=== PATIENT | female | born 1965 | race Caucasian/White ===

== ENCOUNTER 2017-11-19 14:00 | Emergency (ER) | payer MEDICAID, SELFPAY | END 2017-11-19 16:01 | disposition home or self-care (01) | PROVIDERS: Emergency Provider Nurse Practitioner Family; Family Provider Nurse Practitioner Family; Visit Provider Nurse Practitioner Family | DX: J18.0 Bronchopneumonia, unspecified organism (principal); F17.210 Nicotine dependence, cigarettes, uncomplicated; Z85.41 Personal history of malignant neoplasm of cervix uteri; J44.9 Chronic obstructive pulmonary disease, unspecified; I10 Essential (primary) hypertension; K21.9 Gastro-esophageal reflux disease without esophagitis; Z79.890 Hormone replacement therapy; Z79.52 Long term (current) use of systemic steroids; Z79.899 Other long term (current) drug therapy; Z88.5 Allergy status to narcotic agent; Z88.8 Allergy status to other drugs, medicaments and biological substances | CPT/HCPCS: 71020; 99201 ==

== ENCOUNTER 2018-01-28 13:56 | Emergency (ER) | payer MEDICAID, SELFPAY ==
[2018-01-28 14:21] VITALS: BP 159/89; PULSE 97; RESP 20; TEMP 37.1; O2SAT 99; BMI 16.5
--- NOTE | 2018-01-28 14:45 | HMH.EDUTC ---
[facility] Disposition Clinical Impression: Skin abscess Qualifiers: Site of cutaneous abscess: unspecified site Qualified Code(s): L02.91 - Cutaneous abscess, unspecified Disposition: Home, Self-Care Condition on Discharge: Good Instructions: Boil Additional Instructions: Take medication as prescribed Follow up with Dr Bustamante tomorrow as scheduled Return if needed Over the counter Motrin or Tylenol as needed for fever or pain Prescriptions: cephALEXin [Keflex 500mg Cap] 500 mg PO Q6H #40 cap Sulfamethoxazole/Trimethoprim [Bactrim DS tablet] 1 each PO BID #20 tab Referrals: Evaristo Nye MD [Primary Care Provider] - David Bustamante MD [Staff Physician] - 01/29/18 10:30 am Time of Disposition: 15:25 Medical Decision Making Vital Signs: 01/28/18 14:21 Temperature 98.7 F Temperature Source Temporal Artery Scan Pulse Rate [Right Radial] 97 H Respiratory Rate 20 Blood Pressure [Right Arm] 159/89 Blood Pressure Mean [Right Arm] 112 Blood Pressure Source [Right Arm] Automatic Cuff Blood Pressure Position [Right Arm] Supine 02 Sat by Pulse Oximetry 99 Oxygen Delivery Method Room Air - Physician Consults Time: 15:00 Reason -: Pt condition, Other (Called Dr Sandra office patient has appointment tomorrow and they added I&D and changed time of appointment to 1030 ) - Berry Inquiry Pt receiving controlled substance: No Berry was queried for this patient: No [facility] HPI - General Stated complaint: boil on left arm Mode of Arrival: Family Vehicle Source of Information: Patient Limitations: No Limitations Description of Symptoms (Recalled from Triage Doc. by RN): PT C/O SPOT ON LEFT ARM THAT IS SWOLLEN, RED, AND PAINFUL. HEENT Symptoms (Recalled from RN notes): No Resp Symptoms (Recalled from RN notes): No Skin Symptoms (Recalled from RN notes): Yes (SPOT ON LEFT ARM RED/SWOLLEN/PAINFUL) MS Symptoms (Recalled from RN notes): No Functional Status (Recalled from RN notes): NA - History of Present Illness Provider Complaint: Patient state that she has an IV drug use problem State that she was injecting her medication when she accidently missed her vein and now she has red swollen warm to touch area on left ac area State that she noticed last night that it opened up and started to drain then stopped draining and began to swell again - Related Data Home Medications Medication Instructions Recorded Confirmed ARIPiprazole [Aripiprazole] 20 mg PO DAILY 01/28/18 01/28/18 Albuterol Sulfate [Albuterol HFA 1 puff INHALATION DAILY PRN 01/28/18 01/28/18 Inhaler] Estradiol [Estradiol] 0.5 mg PO DAILY 01/28/18 01/28/18 Ibuprofen [Ibuprofen 800mg Tab] 800 mg PO DAILY 01/28/18 01/28/18 Megestrol Acetate [Megestrol 40 mg PO DAILY 01/28/18 01/28/18 Acetate 40mg Tablet] Meloxicam [Meloxicam] 7.5 mg pe PO DAILY 01/28/18 01/28/18 Omeprazole [Omeprazole 40mg 40 mg PO DAILY 01/28/18 01/28/18 Capsule] Ondansetron HCl [Ondansetron 4mg 4 mg PO DAILY PRN 01/28/18 01/28/18 Tab] Pravastatin Sodium [Pravachol] 20 mg PO DAILY 01/28/18 01/28/18 Quetiapine Fumarate [Seroquel 25mg 50 mg PO HS 01/28/18 01/28/18 tablet] Tizanidine HCl [Zanaflex 4mg 4 mg PO DAILY 01/28/18 01/28/18 tablet] Trazodone HCl 100 mg PO DAILY 01/28/18 01/28/18 Previous Rx's Medication Instructions Recorded Sulfamethoxazole/Trimethoprim 1 each PO BID #20 tab 01/28/18 [Bactrim DS tablet] cephALEXin [Keflex 500mg Cap] 500 mg PO Q6H #40 cap 01/28/18 Allergies Allergy/AdvReac Type Severity Reaction Status Date / Time aspirin [ASPIRIN] Allergy Unknown Verified 01/28/18 14:26 codeine [CODEINE] Allergy Unknown Verified 01/28/18 14:26 propoxyphene [PROPOXYPHENE] Allergy Unknown Verified 01/28/18 14:26 tramadol [TRAMADOL] Allergy Unknown Verified 01/28/18 14:26 - Worker's Comp Is this a Worker's Comp case?: No H History I have reviewed the patient's past medical history: Yes 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: Denies:: Cancer, Diabet
--- NOTE | 2018-01-28 14:52 | ED_ITS ---
[facility] [place] Disposition Clinical Impression: Skin abscess Qualifiers: Site of cutaneous abscess: unspecified site Qualified Code(s): L02.91 - Cutaneous abscess, unspecified Disposition: Home, Self-Care Condition on Discharge: Good Instructions: Boil Additional Instructions: Take medication as prescribed Follow up with Dr Bustamante tomorrow as scheduled Return if needed Over the counter Motrin or Tylenol as needed for fever or pain Prescriptions: cephALEXin [Keflex 500mg Cap] 500 mg PO Q6H #40 cap Sulfamethoxazole/Trimethoprim [Bactrim DS tablet] 1 each PO BID #20 tab Referrals: Evaristo Nye MD [Primary Care Provider] - David Bustamante MD [Staff Physician] - 01/29/18 10:30 am Time of Disposition: 15:25 Medical Decision Making Vital Signs: 01/28/18 14:21 Temperature 98.7 F Temperature Source Temporal Artery Scan Pulse Rate [Right Radial] 97 H Respiratory Rate 20 Blood Pressure [Right Arm] 159/89 Blood Pressure Mean [Right Arm] 112 Blood Pressure Source [Right Arm] Automatic Cuff Blood Pressure Position [Right Arm] Supine 02 Sat by Pulse Oximetry 99 Oxygen Delivery Method Room Air - Physician Consults Time: 15:00 Reason -: Pt condition, Other (Called Dr Sandra office patient has appointment tomorrow and they added I&D and changed time of appointment to 1030 ) - Berry Inquiry Pt receiving controlled substance: No Berry was queried for this patient: No [facility] [place] HPI - General Stated complaint: boil on left arm Mode of Arrival: Family Vehicle Source of Information: Patient Limitations: No Limitations Description of Symptoms (Recalled from Triage Doc. by RN): PT C/O SPOT ON LEFT ARM THAT IS SWOLLEN, RED, AND PAINFUL. HEENT Symptoms (Recalled from RN notes): No Resp Symptoms (Recalled from RN notes): No Skin Symptoms (Recalled from RN notes): Yes (SPOT ON LEFT ARM RED/SWOLLEN/ PAINFUL) MS Symptoms (Recalled from RN notes): No Functional Status (Recalled from RN notes): NA - History of Present Illness Provider Complaint: Patient state that she has an IV drug use problem State that she was injecting her medication when she accidently missed her vein and now she has red swollen warm to touch area on left ac area State that she noticed last night that it opened up and started to drain then stopped draining and began to swell again - Related Data Home Medications Medication Instructions Recorded Confirmed ARIPiprazole [Aripiprazole] 20 mg PO DAILY 01/28/18 01/28/18 Albuterol Sulfate [Albuterol HFA 1 puff INHALATION DAILY PRN 01/28/18 01/28/18 Inhaler] Estradiol [Estradiol] 0.5 mg PO DAILY 01/28/18 01/28/18 Ibuprofen [Ibuprofen 800mg Tab] 800 mg PO DAILY 01/28/18 01/28/18 Megestrol Acetate [Megestrol 40 mg PO DAILY 01/28/18 01/28/18 Acetate 40mg Tablet] Meloxicam [Meloxicam] 7.5 mg pe PO DAILY 01/28/18 01/28/18 Omeprazole [Omeprazole 40mg 40 mg PO DAILY 01/28/18 01/28/18 Capsule] Ondansetron HCl [Ondansetron 4mg 4 mg PO DAILY PRN 01/28/18 01/28/18 Tab] Pravastatin Sodium [Pravachol] 20 mg PO DAILY 01/28/18 01/28/18 Quetiapine Fumarate [Seroquel 25mg 50 mg PO HS 01/28/18 01/28/18 tablet] Tizanidine HCl [Zanaflex 4mg 4 mg PO DAILY 01/28/18 01/28/18 tablet] Trazodone HCl 100 mg PO DAILY 01/28/18 01/28/18 Previous Rx's Medication Instructions Recorde
[2018-01-28 15:28] VITALS: BP 105/80; PULSE 76; RESP 20; TEMP 37.1; O2SAT 99
== END 2018-01-28 15:29 | disposition home or self-care (01) ==
PROVIDERS: Emergency Provider Nurse Practitioner; Family Provider Nurse Practitioner Family; PCP Family Medicine
DX: L02.414 Cutaneous abscess of left upper limb (principal); F19.10 Other psychoactive substance abuse, uncomplicated; Z79.890 Hormone replacement therapy; Z79.899 Other long term (current) drug therapy; F17.210 Nicotine dependence, cigarettes, uncomplicated
CPT/HCPCS: 99202

== ENCOUNTER → 2018-01-29 11:12 | Outpatient (CLI) | payer MEDICAID, SELFPAY ==
[2018-01-29 11:45] LABS: Basophils % 0.3 % (0.1-2.0); Eosinophils # 0.3 K/mm3 (0.0-0.4); Eosinophils % 2.9 % (0.1-12.0); Hematocrit 36.7 % (37.0-47.0); Hemoglobin 11.6 g/dL (12.2-16.2); Lymphocytes # 2.4 K/mm3 (0.7-4.5); Lymphocytes % 23.6 K/mm3 (10-50); Mean Corpuscular HGB Conc 31.5 g/dL (31.8-35.4); Mean Corpuscular Hemoglobin 29.3 pg (27.0-31.2); Monocytes # 0.6 K/mm3 (0.1-1.0); Monocytes % 5.7 % (1.7-9.3); Neutrophils # 6.8 K/mm3 (1.8-7.8); Neutrophils % 67.4 % (37.0-80.0); Platelet Count 423 K/mm3 (142-424); Red Blood Count 3.95 M/mm3 (4.20-5.40); Red Cell Distribution Width 14.1 % (11.5-17.5); White Blood Count 10.1 K/mm3 (4.8-10.8)
[2018-01-30 10:29] LABS: Anion Gap 15.8 mEq/L (5-15); Blood Urea Nitrogen 8 mg/dL (7-18); Carbon Dioxide 24 mmol/L (21.0-32.0); Chloride 100 mmol/L (98-107); Creatinine,Serum 1.17 mg/dL (0.55-1.02); Estimated Glomerular Filt Rate 49 ml/min (>60); GFR (African American) 59 ML/MIN (>60); Glucose 82 mg/dL (74-106); Sodium 136 mmol/L (136-145)
[2018-01-30 10:40] LABS: Potassium 3.8 mmoL/L (3.5-5.1)
== END ==
PROVIDERS: PCP Family Medicine; Visit Provider Surgery
DX: L02.414 Cutaneous abscess of left upper limb (principal); Z01.818 Encounter for other preprocedural examination
CPT/HCPCS: 36415; 80048; 85025; 93005

== ENCOUNTER 2018-01-30 09:33 | Day surgery (SDC) | payer MEDICAID, SELFPAY ==
[2018-01-30] VITALS (12 sets, daily range): BP systolic 114–163; BP diastolic 72–103; PULSE 76–89; RESP 16–18; TEMP 37.1–37.7; O2SAT 96–100; BMI 16.5
--- NOTE | 2018-01-30 10:23 | HMH.ANESCL ---
[facility] Anesthesia Checklist - Patient Identification Patient Identification: Arm Band - Structural Data Admitted From: Home Planned Operative Procedure/s: I&D left arm abcess Consent for Planned Operative Procedure(s) Verified: Yes Verified Documents: Surgical Consent, History and Physical - NPO Status Verified Time NPO: 00:00 - Additional verifications Anesthesia Reactions: No - Airway Assessment C-Spine Mobility Assessed: Yes (mp2) TMJ Mobility Assessed: Yes Dentition: Edentulous - Neurological Assessment Level of Consciousness: Awake, Alert - Anesthesia Plan Anesthesia Risk discussed: Yes Anesthesia Plan: Verified ASA Class: III Anesthesia Type: General [facility] Anesthesia HX 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: Reports:: Anxiety, Cancer, Chronic Obstructive Pulmonary Disease (COPD), Depression, Gastroesophageal Reflux Disease(GERD), Hyperlipidemia Denies:: Diabetes Mellitus Type 1, Diabetes Mellitus Type 2, MRSA Other 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: Reports: Other (IV drug abuse) Laterality Cases: Right: Arthroscopy Knee, Bilateral: Breast Biopsy Other Surgeries: Yes: , Hernia Repair, Hysterectomy-Total, Other (gallbladder) Amputation: No Fractures: No *Family Hx:: Cancer, Hypertension, Diabetes
--- NOTE | 2018-01-30 11:36 | P.OP_ITS ---
Date of procedure: 01/30/18 Pre-op Diagnosis:: Left antecubital fossa abscess Post-op Diagnosis:: Same Procedure performed:: Incision and drainage of left antecubital fossa abscess Surgeon:: David Bustamante MD Systems Technologist(s):: Nuria Titus MAT CUTTER:: Olivier Kim Anesthesia: LMA Estimated blood loss (mL): 5 Operative findings:: Localized abscess in fairly shallow subcutaneous tissue of left antecubital fossa Operative note:: After informed consent was obtained, the patient was taken to the operating room and maintained in the supine position. General anesthesia with laryngeal mask airway was achieved. Her left arm was prepped and draped in a sterile fashion. A small incision was made overlying the central portion of the abscess and purulent fluid was obtained for Gram stain and culture. The pocket was carefully evacuated and irrigated. A small area of marginal necrotic tissue was excised sharply and the wound was then packed open with moistened Kerlix. The entire area to include the gauze was infiltrated with 1% lidocaine. Dressings were applied and the patient was transferred to recovery in stable condition. Condition: stable Disposition: PACU Specimens:: Fluid for Gram stain and culture Complications:: No immediate
--- NOTE | 2018-01-30 11:36 | HMH.ANESI ---
[facility] Anesthesia Record Part I Intake, IV Amount: 500 Estimated blood loss (mL): 5 Urine output (mL): 0 Blood Pressure: 114/73 SaO2: 96 Pulse Rate: 89 Respiratory Rate: 16 Temperature: 99 F Patient is:: Drowsy, Stable Stable to PACU at:: 11:35
--- NOTE | 2018-01-30 11:39 | P.PN_ITS ---
[facility] Anesthesia Record Part I Intake, IV Amount: 89 Estimated blood loss (mL): 5 Urine output (mL): 0 Blood Pressure: 114/73 SaO2: 96 Pulse Rate: 89 Respiratory Rate: 16 Temperature: 99 F Patient is:: Drowsy, Stable Stable to PACU at:: 11:35
--- NOTE | 2018-01-30 11:39 | P.PN_ITS ---
[facility] Anesthesia Record Part II Discharge Time: 12:05 Destination: [facility] PACU nurse assessment reviewed?: Yes Patient Condition:: Good Anesthesia Complications:: None
--- NOTE | 2018-01-30 11:39 | HMH.ANESII ---
[place] Anesthesia Record Part II Discharge Time: 12:05 Destination: [facility] PACU nurse assessment reviewed?: Yes Patient Condition:: Good Anesthesia Complications:: None
--- NOTE | 2018-01-30 13:09 | P.PN_ITS ---
[facility] Anesthesia Record Part I Intake, IV Amount: 500 Estimated blood loss (mL): 5 Urine output (mL): 0 Blood Pressure: 114/73 SaO2: 96 Pulse Rate: 89 Respiratory Rate: 16 Temperature: 99 F Patient is:: Drowsy, Stable Stable to PACU at:: 11:35
--- NOTE | 2018-01-30 14:15 | PC.NURSE ---
1150-pt rates pain to left arm 9/10 and describes as throbbing, medicated per JAN w/Toradol 30mg IV and Morphine 2mg IV. VSS. 1155-Pt rates throbbing pain to left arm 7/10. Medicated per MAR w/Morphine 2mg IV. VSS.
--- NOTE | 2018-01-30 14:19 | PC.NURSE ---
1203-detailed report called to LeifRN 1205-pt transported to post op via stretcher w/rails up and left in care of YULISSA Yadav w/bed locked in lowest position. VSS. Pt stable.
== END 2018-01-30 12:51 | disposition home or self-care (01) ==
PROVIDERS: Family Provider Nurse Practitioner Family; PCP Family Medicine; Visit Provider Surgery
PROC: (CPT 10061; principal; 2018-01-30 11:15)
DX: L02.414 Cutaneous abscess of left upper limb (principal)
CPT/HCPCS: 10061; 87070; 87077; 87186; 87205; 96374; J2405

== ENCOUNTER → 2018-11-18 14:25 | Outpatient (CLI) | payer MEDICAID, SELFPAY ==
[2018-11-18 14:32] LABS: Microscopic, Urine URINE MICROSCOPIC (MICROSCOPIC)
[2018-11-18 14:54] LABS: Basophils # 0.1 K/mm3 (0-0.2); Basophils % 0.7 % (0.1-2.0); Eosinophils # 0.2 K/mm3 (0.0-0.4); Eosinophils % 1.9 % (0.1-12.0); Hematocrit 37.3 % (37.0-47.0); Lymphocytes # 3.2 K/mm3 (0.7-4.5); Lymphocytes % 34.5 % (10-50); Mean Corpuscular HGB Conc 32.2 g/dL (31.8-35.4); Mean Corpuscular Hemoglobin 30.9 pg (27.0-31.2); Mean Corpuscular Volume 96.1 fl (81-99); Mean Platelet Volume 7.3 fl (7.4-10.4); Monocytes # 0.4 K/mm3 (0.1-1.0); Monocytes % 4.6 % (1.7-9.3); Neutrophils # 5.5 K/mm3 (1.8-7.8); Neutrophils % 58.4 % (37.0-80.0); Platelet Count 322 K/mm3 (142-424); Red Blood Count 3.88 M/mm3 (4.20-5.40); Red Cell Distribution Width 14.2 % (11.5-17.5); White Blood Count 9.4 K/mm3 (4.8-10.8)
[2018-11-18 16:11] LABS: Amphetamine/Metha Screen,Urine Negative ng/mL (<1000); Barbiturates Screen,Urine Negative ng/mL (<200); Benzodiazepines Screen,Urine Positive ng/mL (<200); Cannabinoid Screen,Urine Positive ng/mL (<50); Cocaine Screen,Urine Negative ng/mL (<300); Methadone Screen,Urine Negative ng/mL (<300); Opiate Screen,Urine Negative ng/mL (<300); Phencyclidine Screen,Urine Negative ng/mL (<25)
[2018-11-18 16:19] LABS: Appearance,Urine CLEAR (Clear); Bilirubin,Urine Negative (Negative); Blood, Urine Negative (Negative); Color,Urine YELLOW (Yellow); Glucose,Urine (UA) Negative (Negative); Ketones,Urine Negative (Negative); Leukocyte Esterase,Urine TRACE (Negative); Nitrate,Urine Negative (Negative); Protein,Urine Negative (Negative); Specific Gravity, Urine <= 1.005 (1.005-1.030); Urobilinogen,Urine 0.2 EU/dl (0.2)
[2018-11-18 16:40] LABS: RBC,Urine Occasional #/hpf (0-3)
[2018-11-18 16:41] LABS: Bacteria,Urine Trace /lpf
[2018-11-18 20:49] LABS: Alanine Aminotransferase 16 U/L (12-78); Albumin Level 3.7 gm/dL (3.4-5.0); Alkaline Phosphatase 115 U/L (46-116); Anion Gap 13.8 mEq/L (5-15); Aspartate Amino Transferase 11 U/L (15-37); Bilirubin,Total 0.3 mg/dL (0.2-1.0); Blood Urea Nitrogen 8 mg/dL (7-18); Calcium 8.8 mg/dL (8.5-10.1); Carbon Dioxide 29 mmol/L (21.0-32.0); Chloride 100 mmol/L (98-107); Chol/HDL Ratio 2.9 (1-3.5); Cholesterol 191 mg/dL (140-200); Creatinine,Serum 1.07 mg/dL (0.55-1.02); Estimated Glomerular Filt Rate 54 ml/min (>60); GFR (African American) 65 ML/MIN (>60); Globulin 3.7 gm/dl (1.3-3.2); Glucose 64 mg/dL (74-106); HCG,Quantitative 2 mIU/mL; HDL Cholesterol 67 mg/dL (29-89); LDL Cholesterol 86 mg/dL (0-130); Potassium 3.8 mmoL/L (3.5-5.1); Sodium 139 mmol/L (136-145); Total Protein,Serum 7.4 gm/dL (6.4-8.2); Triglycerides 189 mg/dL (30-200); VLDL Cholesterol 38 mg/dL (0-40)
[2018-11-18 21:30] LABS: Ethyl Alcohol 0 mg/dL (0-99)
[2018-11-20 09:16] LABS: HIV Screen 4th Generation wRfx Non Reactive (Non Reactive)
[2018-11-21 16:12] LABS: Hep B Surface Ab, Qual Reactive (.); Hepatitis C Antibody >11.0 s/co ratio (0.0-0.9); Rapid Plasma Reagin Ab Titer Non Reactive (NonRea<1:1)
== END ==
PROVIDERS: Visit Provider Obstetrics & Gynecology
DX: F11.20 Opioid dependence, uncomplicated (principal); Z79.899 Other long term (current) drug therapy
CPT/HCPCS: 36415; 80053; 80061; 80305; 81001; 84702; 85025; 86592; 86703; 86706; 87086; 87380; G0432

== ENCOUNTER → 2018-12-03 08:52 | Outpatient (CLI) | payer MEDICAID, SELFPAY ==
--- NOTE | 2018-12-03 08:59 | MM_ITS ---
MM Dig screening mamm BI w/CAD CAD Screening COMPARISON: Digital mammograms with CAD 10/29/2011 and 05/06/2014 INDICATION: There is no personal or family history of breast cancer. There has been previous cyst aspiration left breast. TECHNIQUE: Standard CC and MLO images were obtained. R2 CAD reviewed. FINDINGS: Moderate and diffuse fibroglandular densities are seen in the central portions of both breasts. There is a benign-appearing macrocalcification upper outer quadrant right breast and there are benign-appearing microcalcifications left breast. There are stable nodular density axillary tail left breast. There is no suspicious lesion and there are no suspicious microcalcifications. IMPRESSION: Stable exam with no suspicious lesion seen BI-RADS Category: 2 Benign Finding(s) RECOMMENDED FOLLOW-UP: 1YR - 1 YEAR FOLLOW-UP (A letter has been sent to the patient regarding results of the study.)
--- NOTE | 2018-12-03 08:59 | XR_ITS ---
XR shoulder LT min 2V HISTORY: ITS.REASON: Shoulder pain ORDERING PHYSICIAN: Maine Parkinson PATIENT AGE: 52 years Comparison: 12/09/2008 FINDINGS: No fracture or dislocation. No lytic or blastic change. There is normal mineralization. The joint spaces are well-preserved. No significant degenerative/arthritic changes. No erosive changes evident. IMPRESSION: Negative, no acute finding
--- NOTE | 2018-12-03 08:59 | XR_ITS ---
XR hand LT min 3V HISTORY: ITS.REASON: Lt hand pain ORDERING PHYSICIAN: Maine Parkinson PATIENT AGE: 52 years COMPARISON: None FINDINGS: No fracture or dislocation. No lytic or blastic change. There is normal mineralization.. The joint spaces are well-preserved. No significant degenerative/arthritic changes. No erosive changes evident.. IMPRESSION: Negative, no acute finding
--- NOTE | 2018-12-03 08:59 | XR_ITS ---
XR wrist LT min 3V HISTORY ITS.REASON: Left wrist pain ORDERING PHYSICIAN: Maine Parkinson PATIENT AGE: 52 years Comparison: None FINDINGS: No fracture or dislocation. No lytic or blastic change. There is normal mineralization.. The joint spaces are well-preserved. No significant degenerative/arthritic changes. No erosive changes evident.. IMPRESSION: Negative wrist
--- NOTE | 2018-12-03 09:00 | US_ITS ---
US abdomen complete HISTORY: Pain and vomiting when eating ITS.REASON: EPIGASTRIC PAIN, INCISIONAL HERNIA ORDERING PHYSICIAN: Maine Parkinson PATIENT AGE: 52 years COMPARISON: None FINDINGS: PANCREAS:Unremarkable. No obvious mass or abnormal fluid collection. No ductal dilatation LIVER:No focal liver lesions demonstrated. There is coarse echogenicity of the liver nonspecific.. No intrahepatic biliary ductal dilatation evident RIGHT KIDNEY:Unremarkable. Normal size and echogenicity. No hydronephrosis LEFT KIDNEY:Unremarkable. No hydronephrosis. Normal size and echogenicity. GALLBLADDER:Status post cholecystectomy. Common bile duct is normal at 6 mm.. AORTA:No evidence of aneurysmal dilatation. Plaque present in the aorta SPLEEN:Unremarkable. Normal size and echogenicity ASCITES:None demonstrated. IMPRESSION: 1. Coarse echogenicity of the liver nonspecific. 2. Status post cholecystectomy. 3. Plaque within the aorta
== END ==
PROVIDERS: PCP Nurse Practitioner Family; Visit Provider Nurse Practitioner Family
DX: M25.512 Pain in left shoulder (principal); M25.532 Pain in left wrist; M79.642 Pain in left hand; Z12.31 Encounter for screening mammogram for malignant neoplasm of breast; R10.13 Epigastric pain; K43.2 Incisional hernia without obstruction or gangrene
CPT/HCPCS: 73030; 73110; 73130; 76700; 77067

== ENCOUNTER → 2018-12-16 13:32 | Outpatient (CLI) | payer MEDICAID, SELFPAY ==
--- NOTE | 2018-12-16 13:35 | XR_ITS ---
EXAM: XR cervical spine 2V HISTORY: ITS.REASON: Neck pain ORDERING PHYSICIAN: Alisson Bautista MD PATIENT AGE: 52 years COMPARISON: None FINDINGS: Normal alignment. No fracture or dislocation. No lytic or blastic change. There is mild degenerative disc disease at C5-C6 with small endplate osteophytes. Small endplate osteophyte also noted at C7 inferiorly. No lytic or blastic change. Incidental note made of thyroid cartilage calcifications as normal variant. No cervical rib. IMPRESSION: Mild degenerative disc disease C5-C6
== END ==
PROVIDERS: PCP Internal Medicine Adolescent Medicine; Visit Provider Orthopaedic Surgery
DX: M54.2 Cervicalgia (principal)
CPT/HCPCS: 72040

== ENCOUNTER → 2019-01-23 12:14 | Outpatient (CLI) | payer MEDICAID, SELFPAY ==
[2019-01-23 12:43] LABS: Basophils # 0.1 K/mm3 (0-0.2); Basophils % 0.8 % (0.1-2.0); Eosinophils # 0.3 K/mm3 (0.0-0.4); Eosinophils % 4.3 % (0.1-12.0); Hematocrit 48.2 % (37.0-47.0); Hemoglobin 15.5 g/dL (12.2-16.2); Lymphocytes # 2.7 K/mm3 (0.7-4.5); Lymphocytes % 42.6 % (10-50); Mean Corpuscular HGB Conc 32.1 g/dL (31.8-35.4); Mean Corpuscular Hemoglobin 31.1 pg (27.0-31.2); Mean Corpuscular Volume 96.8 fl (81-99); Monocytes # 0.3 K/mm3 (0.1-1.0); Monocytes % 5.2 % (1.7-9.3); Neutrophils % 47.2 % (37.0-80.0); Platelet Count 290 K/mm3 (142-424); Red Blood Count 4.98 M/mm3 (4.20-5.40); White Blood Count 6.4 K/mm3 (4.8-10.8)
[2019-01-23 14:01] LABS: Anion Gap 14.7 mEq/L (5-15); Blood Urea Nitrogen 10 mg/dL (7-18); Calcium 9.4 mg/dL (8.5-10.1); Carbon Dioxide 25 mmol/L (21.0-32.0); Chloride 101 mmol/L (98-107); Creatinine,Serum 1.17 mg/dL (0.55-1.02); Estimated Glomerular Filt Rate 49 ml/min (>60); GFR (African American) 59 ML/MIN (>60); Glucose 98 mg/dL (74-106); Potassium 3.7 mmoL/L (3.5-5.1); Sodium 137 mmol/L (136-145)
== END ==
PROVIDERS: Visit Provider Surgery
DX: K43.2 Incisional hernia without obstruction or gangrene (principal); R63.4 Abnormal weight loss
CPT/HCPCS: 36415; 80048; 85025

== ENCOUNTER → 2019-01-26 09:14 | Outpatient (POV) | payer MEDICAID, SELFPAY | PROVIDERS: Visit Provider Specialist | DX: M54.2 Cervicalgia (principal); M79.602 Pain in left arm | CPT/HCPCS: 95886; 95908 ==

== ENCOUNTER → 2019-01-27 08:48 | Outpatient (CLI) | payer MEDICAID, SELFPAY ==
--- NOTE | 2019-01-27 09:23 | CT_ITS ---
CT chest w con HISTORY: Tobacco use, weight loss ITS.REASON: weight loss ORDERING PHYSICIAN: David Bustamante MD PATIENT AGE: 53 years COMPARISON: 12/27/2015 TECHNIQUE: Axial images obtained following the administration of 75 mL of Optiray 350. Sagittal, and coronal reformatted images are also generated and reviewed. All CT scans at the facility use one or more dose reduction, viz: automated exposure control, ma/kV adjustment per patient size (including targeted exams where dose is matched to indication, i.e. head), or iterative reconstruction technique. FINDINGS: No mediastinal or hilar mass. Normal heart size. Minimal aortic root calcifications. No evidence of pericardial effusion. Hyperinflation with attenuation of peripheral pulmonary vessels consistent with COPD. Chronic parenchymal opacity is present within the lingula. There is calcified granuloma in the left upper lobe. There are mild right apical fibrotic changes. There is a faint 3 mm noncalcified nodule in the right upper lobe laterally axial image #39 was probably present on the previous study the less apparent and may be due to the axial orientation of the slices. An additional 3 mm nodule is present in the right upper lobe anteriorly on axial image #41. No suspicious nodules are evident. No infiltrates or effusions.. No central obstructing lesion. Upper abdominal images show biliary dilatation which may be secondary to the prior cholecystectomy. No acute bony anomalies. IMPRESSION: 1. COPD with chronic changes. 2. There are two 3-mm nodular densities in the right upper lobe which are nonspecific. 12 month follow-up suggested.
--- NOTE | 2019-01-27 09:23 | CT_ITS ---
CT abdomen pelvis w con CLINICAL INDICATION: Weight loss, possible hernia ITS.REASON: weight loss ORDERING PHYSICIAN: David Bustamante MD PATIENT AGE: 53 years COMPARISON: 09/13/2016 TECHNIQUE: Axial images obtained with sagittal and coronal reformats. All CT scans at the facility use one or more dose reduction, viz: automated exposure control, ma/kV adjustment per patient size (including targeted exams where dose is matched to indication, i.e. head), or iterative reconstruction technique. PROCEDURE: Oral Contrast: Redicat IV Contrast: 75 mL of Optiray 350 performed in conjunction with the chest CT. FINDINGS: There are postcholecystectomy changes with biliary ectasia. The adrenal glands, pancreas, spleen, and kidneys have an unremarkable appearance. No renal or ureteral calculi. The appendix is filled with hyperdense material which may be due to an barium within the appendix. No convincing evidence of appendicitis. There is an area of luminal narrowing involving the mid aspect of the ascending colon. This could be related to nondistention. A mucosal lesion cannot be excluded imaging lies. Please correlate with colonoscope findings if recently performed. There is tortuosity of the splenic flexure of the colon. There is mild amount of retained colonic feces. Prior hysterectomy. No pelvic mass or abnormal fluid collection. No abdominal wall hernia is evident No acute bony findings. IMPRESSION: 1. Luminal narrowing versus nondistention of the mid aspect of the ascending colon. Consider colonoscopy or barium enema for further evaluation if not recently performed. 2. Mild amount of retained colonic feces. 3. No abdominal wall hernias apparent
[2019-02-04 08:50] LABS: HCV Genotype Not Indicated
== END ==
PROVIDERS: Physician Assistant; PCP Emergency Medicine; Visit Provider Surgery
DX: R63.4 Abnormal weight loss (principal)
CPT/HCPCS: 71260; 74177; 87522; 87902

== ENCOUNTER → 2019-01-27 18:08 | Outpatient (CLI) | payer MEDICAID, SELFPAY | PROVIDERS: Visit Provider Surgery | DX: R63.4 Abnormal weight loss (principal) | CPT/HCPCS: 87522 ==

== ENCOUNTER 2019-02-02 11:47 | Outpatient (RCR) | payer MEDICAID, SELFPAY | END 2019-02-02 11:50 | disposition home or self-care (01) | LOC: PT 11:47 | PROVIDERS: Visit Provider Orthopaedic Surgery | DX: G56.02 Carpal tunnel syndrome, left upper limb (principal) | CPT/HCPCS: 97760 ==

== ENCOUNTER → 2019-02-05 14:03 | Outpatient (CLI) | payer MEDICAID, SELFPAY ==
[2019-02-05 14:21] LABS: Microscopic, Urine URINE MICROSCOPIC (MICROSCOPIC)
[2019-02-05 14:42] LABS: Appearance,Urine CLEAR (Clear); Bilirubin,Urine Negative (Negative); Blood, Urine Negative (Negative); Color,Urine YELLOW (Yellow); Glucose,Urine (UA) Negative (Negative); Ketones,Urine TRACE (Negative); Leukocyte Esterase,Urine Negative (Negative); Nitrate,Urine Negative (Negative); PH,Urine 6.5 (5.0-8.5); Protein,Urine 1+ (Negative); Urobilinogen,Urine 0.2 EU/dl (0.2)
== END ==
PROVIDERS: Visit Provider Surgery
DX: N99.89 Other postprocedural complications and disorders of genitourinary system (principal)
CPT/HCPCS: 81001; 87086

== ENCOUNTER → 2019-02-18 08:19 | Outpatient (CLI) | payer MEDICAID, SELFPAY ==
--- NOTE | 2019-02-18 08:23 | XR_ITS ---
EXAM: XR cervical spine 4V HISTORY: Neck pain following injury ITS.REASON: Fall down stairs ORDERING PHYSICIAN: SILVA Godoy PATIENT AGE: 53 years COMPARISON: 02/03/2019 FINDINGS: Normal alignment. No fracture or dislocation. There is mild degenerative disc disease at C5-C6 and C6-C7. No prevertebral soft tissue swelling apparent. There is straightening of the cervical lordosis. IMPRESSION: 1. No acute fracture. 2. Straightening of lordosis with degenerative changes
--- NOTE | 2019-02-18 08:23 | XR_ITS ---
EXAM: XR lumbar spine min 4V HISTORY: Back pain following injury ITS.REASON: Fall down stairs ORDERING PHYSICIAN: SILVA Godoy PATIENT AGE: 53 years COMPARISON: None FINDINGS: Normal alignment. No fracture or dislocation. No lytic or blastic change. No significant degenerative change. The disc spaces are preserved. IMPRESSION: No acute finding
--- NOTE | 2019-02-18 08:23 | XR_ITS ---
XR sternum min 2V CLINICAL INDICATION: Pain following injury ITS.REASON: fall down stairs ORDERING PHYSICIAN: SILVA Godoy PATIENT AGE: 53 years Comparison: None FINDINGS: No obvious depressed fracture or dislocation. IMPRESSION: Negative sternum
--- NOTE | 2019-02-18 08:23 | XR_ITS ---
EXAM: XR thoracic spine 3V HISTORY: Back pain following injury ITS.REASON: Fall down stairs Comparison: None FINDINGS: Normal alignment. No fracture or dislocation. No lytic or blastic change. No significant degenerative change. The disc spaces are preserved. IMPRESSION: No acute finding
== END ==
PROVIDERS: PCP Emergency Medicine; Visit Provider Physician Assistant
DX: R07.89 Other chest pain (principal); M54.9 Dorsalgia, unspecified; M54.2 Cervicalgia
CPT/HCPCS: 71120; 72050; 72072; 72110

== ENCOUNTER → 2019-02-23 09:45 | Outpatient (CLI) | payer MEDICAID, SELFPAY ==
--- NOTE | 2019-02-23 09:48 | XR_ITS ---
XR knee RT 4V HISTORY: Pain ITS.REASON: 4 views weight bearing ORDERING PHYSICIAN: Alisson Bautista MD PATIENT AGE: 53 years COMPARISON: None FINDINGS: Weight bearing views and sunrise view performed and compared to 02/03/2019. No fracture or dislocation. No lytic or blastic change. Normal mineralization. No significant arthritic changes evident. No other significant findings IMPRESSION: Negative Knee
--- NOTE | 2019-02-23 09:48 | XR_ITS ---
XR knee LT 4V HISTORY: Knee pain ITS.REASON: 4 views weight bearing ORDERING PHYSICIAN: Alisson Bautista MD PATIENT AGE: 53 years COMPARISON: 02/03/2019 FINDINGS: No fracture or dislocation. No lytic or blastic change. Normal mineralization. No significant arthritic changes evident. There are multiple loose calcified bodies in the popliteal fossa. At least 4 loose bodies are suspected the largest measuring up to 1 cm. There is a 17 mm area of subcortical lucency in the interspinous region of the proximal tibia. This could be a donor site of for the loose bodies. CT or MRI may confirm. IMPRESSION: 1. Loose intra-articular bodies in the popliteal fossa. 2. Subcortical lucency of the interspinous region of the proximal tibia which may represent a donor site for the loose bodies or a lucent lesion. MRI or CT may
== END ==
PROVIDERS: PCP Emergency Medicine; Visit Provider Orthopaedic Surgery
DX: M25.562 Pain in left knee (principal); M25.561 Pain in right knee
CPT/HCPCS: 73564

== ENCOUNTER → 2019-02-24 14:08 | Outpatient (CLI) | payer MEDICAID, SELFPAY ==
[2019-02-24 15:17] LABS: Amphetamine/Metha Screen,Urine Negative ng/mL (<1000); Barbiturates Screen,Urine Negative ng/mL (<200); Benzodiazepines Screen,Urine Negative ng/mL (<200); Cannabinoid Screen,Urine Negative ng/mL (<50); Cocaine Screen,Urine Negative ng/mL (<300); Methadone Screen,Urine Negative ng/mL (<300); Opiate Screen,Urine Negative ng/mL (<300); Phencyclidine Screen,Urine Negative ng/mL (<25)
== END ==
LOC: LAB 14:09 → LAB.DROPOF 14:18
PROVIDERS: Visit Provider Physician Assistant
DX: M25.50 Pain in unspecified joint (principal)
CPT/HCPCS: 80305

== ENCOUNTER → 2019-03-23 12:40 | Outpatient (CLI) | payer MEDICAID, SELFPAY ==
--- NOTE | 2019-03-23 12:41 | MR_ITS ---
MR knee LT wo con Ordering Physician: Alisson Bautista MD Patient Age: 53 years: Female HISTORY: ITS.REASON: knee pain left knee pain since 2008. Pain is anterior and around the patella TECHNIQUE: COMPARISON :Left knee MR I 11/05/2014 . Plain films left knee 02/03/2019 & 09/23/2015 FINDINGS .. Again noted multiple osseous fragments along the posterior aspect proximal tibia just above the PCL insertion as previously described.. At least 5 fragments total: 3 are larger and 2 much smaller . The 3 larger bone fragments:: Largest is 13 mm transverse 7 mm height & located slightly medial (coronal image 18). The next largest measures 12 x 8 mm;. Inferior to this is a just over 5 mm mm fragment. (sagittal image 14) There are also 2 smaller tiny fragment seen just anterior to these area. In either case appears similar to the previous 2013 MRI knee. Suspect remote old avulsion fracture fragments from the PCL insertion. These fragments seem to be embedded & associated with the slightly elevated inferior margin and insertion of the PCL;. In fact the PCL I believe inserts upon these fragments. There is a relative concave likely donor defect at posterior tibia where we typically see the PCL insertion.- This is likely the source of these fragments. Again overall findings here have not changed appreciably since 2014 ACL appears to be intact, stable. . MCL and lateral collateral ligaments appear intact. . patellar tendon and quadriceps tendon intact. Medial compartment.: . Medial meniscus appears intact. No meniscal tear. The cartilage at medial compartment is fairly well maintained. No osteochondral defect. Lateral compartment: The lateral meniscus appears intact. Cartilage at the compartment well-maintained as well Patellofemoral joint .:. Cartilage at posterior patella appears intact. No definitive osteochondral defects Regarding anterior, patellofemoral pain stated history: the cartilage along posterior patella appears intact and there seems to be normal relationships. Normal femoral trochlear groove. Unremarkable.. Hoffa's fat pad appears satisfactory.. Anterior meniscus appears satisfactory both medial and lateral compartment. Patellar tendon unremarkable. Small joint fluid noted. Joint effusion most evident at suprapatellar bursa. Overall less joint fluid and 2014 No marrow signal abnormalities. The marrow signal at the proximal tibia and distal femur appears more homogeneous today than previous study. IMPRESSION:...... 1. Old fragmented avulsion injury at the posterior tibia- at PCL insertion as detailed in body of report. Inferior PCL appears to be attached to these fragments Overall Appearance here unchanged since 2014 MRI Old comminuted fracture of the proximal tibia posteriorly. The PCL appears to 2. . Medial and lateral compartment well-maintained. With No meniscal tear evident. No notable osteochondral defect . ACL intact. Collateral ligaments intact 3. Small joint effusion most evident anteriorly at suprapatellar bursa. . 4. Regarding anterior knee pain: No prominent findings at patellofemoral joint other than the small joint effusion . patellofemoral joint relationships appear satisfactory & cartilage posterior patella appears well maintained.
== END ==
PROVIDERS: PCP Physician Assistant; Visit Provider Orthopaedic Surgery
DX: M25.562 Pain in left knee (principal)
CPT/HCPCS: 73721

== ENCOUNTER → 2019-03-26 11:47 | Outpatient (CLI) | payer MEDICAID, SELFPAY ==
--- NOTE | 2019-03-26 11:48 | NM_ITS ---
CARDIOLITE SPECT MYOCARDIAL PERFUSION LEXISCAN, REST AND STRESS: History: Hypertension, hyperlipidemia, tobacco, family history, chest pain, shortness of breath, palpitations and fatigue Procedure: Patient received a 0.4 mg of intravenous Lexiscan, and ibuprofen. Resting blood pressure 186/105, with Lexiscan maximum heart rate achieved was 110 bpm which is less than 85% of the maximum predicted heart rate and a blood pressure was 163/92. Scan patient complained of nausea and malaise Electrocardiogram: Resting electrocardiogram showed sinus rhythm, with Lexiscan there is less than 1.[address] segment depression noted from the baseline EKG. The EKG portion of the Lexiscan is nondiagnostic. Cardiac stress and resting SPECT images: Cardiac stress and resting SPECT images were obtained using technetium 99 Myoview 31.3 mCi stress and 10.7 mCi at rest. Gated SPECT further analysis of segmental wall motion and calculation of the ejection fraction also done. Cardiac stress and the suspect images show uniform activity without segmental perfusion abnormality, computer derived ejection fraction is over 65% with no regional wall motion abnormality, right ventricle is normal size and contractility. Conclusion: 1. The EKG portion of the Lexiscan Myoview is nondiagnostic. 2. No scintigraphic evidence of reversible ischemia seen, computer derived ejection fraction is over 65% with no regional wall motion abnormality, right ventricle is normal size and contractility. 3. Normal Lexiscan Myoview study.
--- NOTE | 2019-03-26 13:13 | CA_ITS ---
PROCEDURE: 2-D M-mode and color Doppler study INDICATIONS FOR THE TEST: Chest pain+ COPD+ Heart Murmur Tobacco Smoking+ Palpitations Fatigue Syncope+ Edema Hypertension+Diabetes Mellitus Rheumatic Fever SOB+GOEL Obesity Hyperlipidemia_+ Family History HD Additional History hep c, prior drug use PATIENT INFORMATION HEIGHT: 62 WEIGHT:104 GENDER: Female B/P:135/78 2-D/M-MODE INTERPRETATION: 2-D MEASUREMENTS OBSERVED VALUES IN CMS Right Ventricular Dimension (RVDd) 2.1 Interventricular Septum (Thickness)(IVsd) 0.8 Left Ventricular Internal Dimensions(LVIDd) 4.9 Left Ventricular Posterior Wall (Thickness)(LVPWd) 1.0 Aortic Root 2.1 Aortic Cusp Separation 1.8 Left Atrial Dimensions (LAD) 3.8 2D 1. Left atrium is mildly enlarged, left ventricle is normal size, mild concentric left ventricular hypertrophy, visually estimated ejection fraction 55% with no regional wall motion abnormality. 2. The right atrium and right ventricle are normal size and contractility. 3. The aortic valve is thickened and calcified without significant restriction the leaflet mobility. 4. The mitral valve has mitral calcification, leaflets are minimally thickened. 5. The tricuspid valve is grossly normal. 6. The pulmonic valve is poorly visualized. 7. No significant pericardial effusion noted. DOPPLER INTERROGATION: Doppler interrogation of the aortic, mitral and tricuspid valvular presence of mild aortic, mild mitral and tricuspid regurgitation, tricuspid regurgitation jet velocity is inadequate for calculation of the right ventricular systolic pressure, grade 1 diastolic dysfunction seen with tissue Doppler evidence of raised left atrial pressure. CONCLUSION: 1. Mildly enlarged left atrium, normal left ventricular size, mild concentric left ventricular hypertrophy, visually estimated ejection fraction 55% with no regional wall motion abnormality, grade 1 diastolic dysfunction seen with tissue Doppler evidence of raised left atrial pressure. 2. Mild aortic, mild mitral and tricuspid regurgitation 3. No significant pericardial effusion noted.
--- NOTE | 2019-03-26 13:30 | HMH.ITSHM ---
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 [] TRAZODONE QUETIAPINE METOPROLOL MELOXICAM GABAPENTIN DULOXETINE CLONIDONE AMITRIPTYLINE ZANAFLEX PRAVACHOL OMEPRAZOLE
== END ==
PROVIDERS: PCP Physician Assistant; Visit Provider Internal Medicine Cardiovascular Disease
DX: R07.9 Chest pain, unspecified (principal); R06.09 Other forms of dyspnea; R42 Dizziness and giddiness; R55 Syncope and collapse; R05 Cough; R61 Generalized hyperhidrosis; B19.20 Unspecified viral hepatitis C without hepatic coma; Z72.0 Tobacco use
CPT/HCPCS: 78452; 93017; 93306; A9502; J2785

== ENCOUNTER → 2019-03-30 08:21 | Outpatient (CLI) | payer MEDICAID, SELFPAY ==
--- NOTE | 2019-03-30 08:32 | XR_ITS ---
XR tibia fibula LT 2V CLINICAL INDICATION: Pain following injury ITS.REASON: Fall ORDERING PHYSICIAN: SILVA Cat PATIENT AGE: 53 years Comparison: None FINDINGS: No fracture or dislocation. IMPRESSION: No acute finding
--- NOTE | 2019-03-30 08:32 | XR_ITS ---
XR ribs BI min 4V w CXR1V HISTORY: Posttraumatic pain, bilateral anterior rib pain, current smoker ITS.REASON: fall ORDERING PHYSICIAN: SILVA Cat PATIENT AGE: 53 years Comparison: 02/03/2019 FINDINGS: A frontal view of the chest shows no acute finding. Multiple views of the right and left ribs were obtained. No fracture or dislocation. No lytic or blastic change. IMPRESSION: Negative RIBS. If pain persists, consider follow-up exam in 7-[address] with 3-D reformats.
--- NOTE | 2019-03-30 08:32 | XR_ITS ---
EXAM: XR thoracic spine 3V HISTORY: ITS.REASON: mid back pain Comparison: None FINDINGS: Normal alignment. No fracture or dislocation. No lytic or blastic change. No significant degenerative change. The disc spaces are preserved. IMPRESSION: No acute finding
--- NOTE | 2019-03-30 08:32 | XR_ITS ---
EXAM: XR lumbar spine min 4V HISTORY: ITS.REASON: pain s/p fall ORDERING PHYSICIAN: SILVA Cat PATIENT AGE: 53 years COMPARISON: 02/18/2019 FINDINGS: Normal alignment. No fracture or dislocation. No lytic or blastic change. No significant degenerative change. The disc spaces are preserved. Lucencies are present along the medial aspect of the transverse process of L1 on both sides consistent with ununited ossification centers Similar to 02/18/2019. IMPRESSION: No change with no acute finding
== END ==
PROVIDERS: PCP Physician Assistant; Visit Provider Physician Assistant
DX: M54.5 Low back pain (principal); M54.6 Pain in thoracic spine; R07.81 Pleurodynia; R52 Pain, unspecified
CPT/HCPCS: 71111; 72072; 72110; 73590

== ENCOUNTER → 2019-04-07 12:35 | Outpatient (CLI) | payer MEDICAID, SELFPAY ==
--- NOTE | 2019-04-07 12:37 | XR_ITS ---
XR DEXA axial skeleton HISTORY: ITS.REASON: bone density screening ORDERING PHYSICIAN: SILVA Cat PATIENT AGE: 53 years COMPARISON: None FINDINGS: The BMD measured at the Total Right femoral neck is 0.771 g/cm squared with a T score of -1.9. This is considered Osteopenic according to the World Health Organization criteria. Fracture risk is Moderate. Treatment is advised. IMPRESSION: Osteopenia with moderate fracture risk. Treatment is advised. Suggest follow-up exam April 2021
== END ==
PROVIDERS: PCP Physician Assistant; Visit Provider Physician Assistant
DX: M54.5 Low back pain (principal)
CPT/HCPCS: 77080

== ENCOUNTER → 2019-04-13 08:52 | Outpatient (CLI) | payer MEDICAID, SELFPAY ==
[2019-04-13 09:14] LABS: Basophils # 0.1 K/mm3 (0-0.2); Basophils % 0.3 % (0.1-2.0); Eosinophils # 0.4 K/mm3 (0.0-0.4); Eosinophils % 2.5 % (0.1-12.0); Hematocrit 36.6 % (37.0-47.0); Hemoglobin 11.9 g/dL (12.2-16.2); Lymphocytes # 3.3 K/mm3 (0.7-4.5); Lymphocytes % 22.9 % (10-50); Mean Corpuscular HGB Conc 32.5 g/dL (31.8-35.4); Mean Corpuscular Hemoglobin 31.3 pg (27.0-31.2); Mean Corpuscular Volume 96.5 fl (81-99); Mean Platelet Volume 6.8 fl (7.4-10.4); Monocytes # 0.7 K/mm3 (0.1-1.0); Monocytes % 4.8 % (1.7-9.3); Neutrophils # 10.1 K/mm3 (1.8-7.8); Neutrophils % 69.5 % (37.0-80.0); Platelet Count 312 K/mm3 (142-424); Red Cell Distribution Width 13.7 % (11.5-17.5); White Blood Count 14.6 K/mm3 (4.8-10.8)
[2019-04-13 09:24] LABS: Prothrombin Time 9.4 seconds (9.4-11.8)
[2019-04-13 10:10] LABS: Alanine Aminotransferase 23 U/L (12-78); Albumin Level 3.7 gm/dL (3.4-5.0); Albumin/Globulin Ratio 0.9 (1.1-1.8); Alkaline Phosphatase 84 U/L (46-116); Anion Gap 12.3 mEq/L (5-15); Aspartate Amino Transferase 19 U/L (15-37); Bilirubin,Total 0.2 mg/dL (0.2-1.0); Blood Urea Nitrogen 13 mg/dL (7-18); Calcium 9.1 mg/dL (8.5-10.1); Carbon Dioxide 32 mmol/L (21.0-32.0); Chloride 99 mmol/L (98-107); Creatinine,Serum 0.99 mg/dL (0.55-1.02); Estimated Glomerular Filt Rate 59 ml/min (>60); GFR (African American) 71 ML/MIN (>60); Globulin 4.1 gm/dl (1.3-3.2); Glucose 97 mg/dL (74-106); Potassium 4.3 mmoL/L (3.5-5.1); Sodium 139 mmol/L (136-145); Total Protein,Serum 7.8 gm/dL (6.4-8.2)
== END ==
PROVIDERS: Visit Provider Orthopaedic Surgery
DX: Z01.818 Encounter for other preprocedural examination (principal)
CPT/HCPCS: 36415; 80053; 85025; 85610

== ENCOUNTER 2019-04-28 14:23 | Outpatient (RCR) | payer MEDICAID, SELFPAY ==
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
== END 2019-04-28 14:30 | disposition home or self-care (01) ==
LOC: PT 14:23
PROVIDERS: Visit Provider Physician Assistant
DX: M54.9 Dorsalgia, unspecified (principal)
CPT/HCPCS: 97163

== ENCOUNTER → 2019-04-30 12:33 | Outpatient (CLI) | payer MEDICAID, SELFPAY ==
--- NOTE | 2019-04-30 12:42 | XR_ITS ---
XR chest 2V HISTORY: ITS.REASON: Cough ORDERING PHYSICIAN: SILVA Cat PATIENT AGE: 53 years COMPARISON: 04/21/2019 FINDINGS: The cardiomediastinal silhouette and pulmonary vascularity are within normal limits. Bilateral pneumonia once again noted which is moderately improved with increased density noted in the perihilar regions. No effusions. IMPRESSION: Persistent but improving bilateral pneumonia
== END ==
PROVIDERS: PCP Physician Assistant; Visit Provider Physician Assistant
DX: J18.9 Pneumonia, unspecified organism (principal)
CPT/HCPCS: 71046; 87070; 87205

== ENCOUNTER → 2019-05-18 09:42 | Outpatient (CLI) | payer MEDICAID, SELFPAY ==
[2019-05-18 10:25] VITALS: PULSE 84; PULSE 88
== END ==
PROVIDERS: PCP Physician Assistant; Visit Provider Physician Assistant
DX: J44.9 Chronic obstructive pulmonary disease, unspecified (principal)
CPT/HCPCS: 94060; 94640

== ENCOUNTER → 2019-06-08 08:44 | Outpatient (CLI) | payer MEDICAID, SELFPAY ==
--- NOTE | 2019-06-08 08:49 | FL_ITS ---
EXAM: Barium swallow/esophagram. INDICATION: Hoarseness, sore throat ITS.REASON: HOARSNESS ORDERING PHYSICIAN: Yayo Romero MD PATIENT AGE: 53 years COMPARISON: None TECHNIQUE: In the upright position the patient was observed to swallow barium in both the AP and lateral view. The cervical esophagus was examined under fluoroscopy with images obtained. The patient was then placed prone in the right anterior oblique position and was observed to swallow barium with Valsalva technique . FLUOROSCOPY TIME: 53 seconds FINDINGS: There was no evidence of aspiration. There was normal peristalsis. No filling defects or mucosal abnormalities. No masses or strictures. No hiatal hernia IMPRESSION: Negative barium swallow.
== END ==
PROVIDERS: PCP Physician Assistant; Visit Provider Otolaryngology Otolaryngology/Facial Plastic Surgery
DX: R49.0 Dysphonia (principal)
CPT/HCPCS: 74220

== ENCOUNTER → 2019-07-07 10:41 | Outpatient (CLI) | payer MEDICAID, SELFPAY ==
--- NOTE | 2019-07-07 10:44 | MR_ITS ---
PROCEDURE: MRI ankle without and with enhancement CLINICAL INDICATION: Right ankle pain and swelling, COMPARISON: Ankle R from 05/17/2019 Technique: Multiplanar multi echo sequences are performed without and with gadolinium enhancement FINDINGS: Patient was initially scanned on 07/07/2019. At that point in time the IV could not be obtained. The patient returned on 07/14/2019 for post enhanced images. Abnormal signal intensity is present within the calcaneus with a curvilinear area of decreased T1 and T2 signal along the mid to posterior aspect of the calcaneus. This is posterior to the subtalar joint and is consistent with a nondisplaced fracture non intra-articular. Moderate amount of bone marrow edema is present within the calcaneus. The remaining tarsal bones have an unremarkable appearance. The anterior and posterior tibiofibular ligaments appear intact. The ATFL is very thin and ill-defined consistent with at least a partial tear of the ATFL. There is some increased T2 signal in the PT FL consistent with a sprain versus partial tear. The deltoid ligament appears intact. The Achilles tendon has an unremarkable appearance. There is some heterogeneous signal intensity in Kager's fat pad consistent with some underlying edema. No obvious prone ill tendon tear. There is subcutaneous edema about the lateral aspect of the ankle and a small amount of fluid along the lateral aspect of the peroneal tendon. There is a moderate amount edema of the soft tissues along the superior aspect of the posterior aspect of the calcaneus and the lateral aspect of the calcaneus. A small amount of fluid is present along the anterior lateral aspect of the ankle joint. IMPRESSION: 1. Nondisplaced mid non intra-articular calcaneal fracture with edema 2. At least a partial tear of the ATFL and sprain versus partial tear of the PT FL 3. Moderate amount of edema around the lateral aspect of the ankle with a small amount fluid along the lateral aspect of the perineal tendon sheath Dictated by: Rohan Jeffers MD 07/22/2019 15:31 Signed by: <Electronically signed by Rohan Jeffers MD in [place]> 07/22/2019 15:31
--- NOTE | 2019-07-14 16:03 | HMH.ITSHM ---
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 []MECTIZINE QUETIAPINE DULOXETINE AMITRIPTYLINE METAPROLOL PRAVASTAIN OMEPRAZOLE MELOXICAM GABAPENTIN TRAZADONE CALCIUM ALBUTEROL VENLAFAXINE
== END ==
PROVIDERS: PCP Emergency Medicine; Visit Provider Podiatrist
DX: M25.571 Pain in right ankle and joints of right foot (principal)
CPT/HCPCS: 73723

== ENCOUNTER → 2019-07-14 14:54 | Outpatient (CLI) | payer MEDICAID, SELFPAY | PROVIDERS: PCP Emergency Medicine; Visit Provider Podiatrist | DX: M25.571 Pain in right ankle and joints of right foot (principal) | CPT/HCPCS: A9576 ==

== ENCOUNTER → 2019-07-28 12:35 | Outpatient (CLI) | payer MEDICAID, SELFPAY ==
--- NOTE | 2019-07-28 12:40 | XR_ITS ---
PROCEDURE: XR FOOT WT BEARING RT 3V CLINICAL INDICATION: pain Calcaneal fracture COMPARISON: Foot R from 05/17/2019 FINDINGS: Studies obtained through a cast. There is good alignment the mid calcaneal fracture. Cortical regularity is present involving the superior aspect of the mid to posterior calcaneus just posterior to the posterior subtalar joint. Other findings:None. IMPRESSION: Good alignment closed reduction calcaneal fracture with cast in place Dictated by: Rohan Jeffers MD 07/28/2019 13:19 Signed by: <Electronically signed by Rohan Jeffers MD in [place]> 07/28/2019 13:19
--- NOTE | 2019-07-28 12:40 | XR_ITS ---
PROCEDURE: XR FOOT WT BEARING LT 3V CLINICAL INDICATION: pain COMPARISON: No exams were available for comparison FINDINGS: No fracture or dislocation. No lytic or blastic change. There is normal mineralization. The joint spaces are well-preserved. No significant degenerative/arthritic changes. No erosive changes evident. Other findings:None. IMPRESSION: No acute findings. Dictated by: Rohan Jeffers MD 07/28/2019 13:11 Signed by: <Electronically signed by Rohan Jeffers MD in [place]> 07/28/2019 13:11
== END ==
PROVIDERS: PCP Emergency Medicine; Visit Provider Podiatrist
DX: S92.014A Nondisplaced fracture of body of right calcaneus, initial encounter for closed fracture (principal); M79.672 Pain in left foot
CPT/HCPCS: 73630

== ENCOUNTER → 2019-08-25 15:16 | Outpatient (CLI) | payer MEDICAID, SELFPAY ==
--- NOTE | 2019-08-25 15:20 | XR_ITS ---
PROCEDURE: XR FOOT WT BEARING RT 3V CLINICAL INDICATION: ankle pain, follow-up fracture Heel pain COMPARISON: [id number] FOOT-RT-3 VIEWS from 10/15/2017 Foot R from 05/17/2019 XR FOOT WT BEARING LT 3V from 07/28/2019 XR FOOT WT BEARING RT 3V from 07/28/2019 FINDINGS: The cast has been removed. Healing calcaneal fracture is noted. Fracture line is still visible along superior margin. Fracture line is present in the mid and posterior aspect of the calcaneus. There are mild osteoarthritic changes of the 1st MTP joint. IMPRESSION: Good alignment healing calcaneal fracture Dictated by: Rohan Jeffers MD 08/25/2019 16:15 Electronically signed by Rohan Jeffers MD in [place] 08/25/2019 16:15
--- NOTE | 2019-08-25 15:20 | XR_ITS ---
PROCEDURE: XR ANKLE WT BEARING RT MIN 3V CLINICAL INDICATION: ankle pain COMPARISON: ANKL3 ANKLE-LT-3 VIEWS from 12/27/2015 ANKR3 ANKLE-RT-3 VIEWS from 12/27/2015 FINDINGS: There is healing calcaneal fractures. The ankle joint has an unremarkable appearance. No acute fracture or dislocation. The ankle mortise does not appear widened. IMPRESSION: Healing calcaneal fracture with good alignment, unremarkable ankle Dictated by: Rohan Jeffers MD 08/25/2019 16:19 Electronically signed by Rohan Jeffers MD in [place] 08/25/2019 16:19
== END ==
PROVIDERS: PCP Emergency Medicine; Visit Provider Podiatrist
DX: M25.571 Pain in right ankle and joints of right foot (principal)
CPT/HCPCS: 73610; 73630

== ENCOUNTER → 2019-10-15 12:46 | Outpatient (CLI) | payer OTHER, SELFPAY ==
--- NOTE | 2019-10-15 | ECG_ITS ---
APPROVED REPORT Exam: Resting ECG HR:73 bpm ECG Measurements Heart Rate 73 AXES IL 146 P 70 QRSd 92 QRS 81 QT 398 T 65 QTc 438 <Conclusion> Normal sinus rhythm Left atrial abnormality Left ventricular hypertrophy Abnormal ECG Electronically signed by : Evaristo Gonzalez, 10/16/2019 12:56:06
--- NOTE | 2019-10-15 12:52 | XR_ITS ---
PROCEDURE: XR THORACIC SPINE 3V CLINICAL INDICATION: shoulder injury Back pain COMPARISON: No exams were available for comparison FINDINGS: There is mild thoracolumbar curvature convex right. No fracture or dislocation. No lytic or blastic change. The disc spaces are well preserved. IMPRESSION: No acute findings. Dictated by: Rohan Jeffers MD 10/15/2019 14:41 Electronically signed by Rohan Jeffers MD in [place] 10/15/2019 14:41
--- NOTE | 2019-10-15 12:52 | XR_ITS ---
PROCEDURE: XR SHOULDER RT MIN 2V CLINICAL INDICATION: shoulder injury Shoulder pain COMPARISON: [id number] VIEWS from 03/16/2014 [id number] XR shoulder LT min 2V from 12/03/2018 FINDINGS: There has been interval development of an osteophyte along the inferior and distal aspect of the a acromion causing subacromial stenosis. The acromioclavicular joint and glenohumeral joint have an unremarkable appearance. No acute fractures evident. IMPRESSION: Bony spurring along the inferior aspect of the acromion with resultant subacromial stenosis which may result in impingement upon the rotator cuff which may be better evaluated with MRI if clinically desired Dictated by: Rohan Jeffers MD 10/15/2019 13:58 Electronically signed by Rohan Jeffers MD in [place] 10/15/2019 13:58
--- NOTE | 2019-10-15 12:52 | XR_ITS ---
PROCEDURE: XR CHEST 2V CLINICAL HISTORY: shoulder injury COMPARISON: CXR2V XR chest 2V from 06/09/[address] chest w con from 01/27/2019 CXR2V XR chest 2V from 02/03/2019 Chest from 04/21/2019 FINDINGS: The cardiomediastinal silhouette and pulmonary vascularity are within normal limits. There is subtle patchy density in the left perihilar region which may be due to an area of residual or recurrence infiltrate. Overall, the airspace disease has improved since 04/21/2019. No acute bony abnormalities. IMPRESSION: Patchy infiltrate in the left perihilar region Dictated by: Rohan Jeffers MD 10/15/2019 13:55 Electronically signed by Rohan Jeffers MD in [place] 10/15/2019 13:55
--- NOTE | 2019-10-15 12:52 | XR_ITS ---
PROCEDURE: XR CERVICAL SPINE 5V CLINICAL INDICATION: shoulder injury Neck pain following injury COMPARISON: [id number] XR cervical spine 4V from 02/18/2019 FINDINGS: There is straightening of the cervical lordosis. No fracture or dislocation. There is normal alignment. Mild degenerative disc disease C5-C6 and C6-C7. Mild foraminal narrowing on the right at C5-C6 and on the left at C3-C4. No fracture or dislocation. No lytic or blastic change. IMPRESSION: Mild cervical spondylosis. No acute finding with no significant change Dictated by: Rohan Jeffers MD 10/15/2019 13:50 Electronically signed by Rohan Jeffers MD in [place] 10/15/2019 13:50
--- NOTE | 2019-10-15 12:53 | XR_ITS ---
PROCEDURE: XR KNEE LT 4V CLINICAL INDICATION: knee pain COMPARISON: [id number] XR knee RT 3V from 02/03/2019 [id number] XR knee LT 3V from 02/03/2019 XR knee LT 4V from 02/23/2019 XR knee RT 4V from 02/23/2019 FINDINGS: Fragmented calcific density noted at the tibial spines consistent with loose bodies. This is similar compared to the previous exam. These may be due to osteochondral fragments. A lucency is noted at the tibial spine region and could be due to an osteochondral defect. Consider CT or MRI for confirmation. There are mild osteoarthritic changes of the medial compartment. Other findings:None. IMPRESSION: Overall no significant change in the osteochondral fragment/loose bodies at the tibial spine with possible osteochondral defect at the proximal tibia centrally Dictated by: Rohan Jeffers MD 10/15/2019 13:48 Electronically signed by Rohan Jeffers MD in [place] 10/15/2019 13:48
--- NOTE | 2019-10-15 12:53 | XR_ITS ---
PROCEDURE: XR KNEE RT 4V CLINICAL INDICATION: knee pain COMPARISON: [id number] XR knee RT 3V from 02/03/2019 [id number] XR knee LT 3V from 02/03/2019 XR knee LT 4V from 02/23/2019 XR knee RT 4V from 02/23/2019 FINDINGS: No fracture or dislocation. No lytic or blastic change. There is normal mineralization. The joint spaces are well-preserved. No significant degenerative/arthritic changes. No erosive changes evident. Other findings:None. IMPRESSION: No acute findings. Dictated by: Rohan Jeffers MD 10/15/2019 13:49 Electronically signed by Rohan Jeffers MD in [place] 10/15/2019 13:49
--- NOTE | 2019-10-15 12:53 | XR_ITS ---
PROCEDURE: XR FOOT WT BEARING RT 3V CLINICAL INDICATION: fracture follow up COMPARISON: Foot R from 05/17/2019 XR FOOT WT BEARING LT 3V from 07/28/2019 XR FOOT WT BEARING RT 3V from 07/28/2019 XR FOOT WT BEARING RT 3V from 08/25/2019 FINDINGS: Healing fracture of the calcaneus once again noted with some increased sclerosis at the fracture line. There remains good alignment. The joint spaces are well-preserved. No significant degenerative/arthritic changes. No erosive changes evident. Other findings:None. IMPRESSION: Good alignment healing calcaneal fracture Dictated by: Rohan Jeffers MD 10/15/2019 13:45 Electronically signed by Rohan Jeffers MD in [place] 10/15/2019 13:45
== END ==
PROVIDERS: PCP Emergency Medicine; Referring Provider Orthopaedic Surgery; Visit Provider Podiatrist
DX: S49.90XA Unspecified injury of shoulder and upper arm, unspecified arm, initial encounter (principal); M25.561 Pain in right knee; T14.8XXA Other injury of unspecified body region, initial encounter; R00.2 Palpitations; M54.2 Cervicalgia; M54.6 Pain in thoracic spine
CPT/HCPCS: 71046; 72050; 72072; 73030; 73564; 73630; 93005; 93225; 93226

== ENCOUNTER → 2019-10-28 11:44 | Outpatient (CLI) | payer OTHER, SELFPAY ==
--- NOTE | 2019-10-28 12:46 | MR_ITS ---
PROCEDURE: MR CERVICAL SPINE WO CON CLINICAL INDICATION: neck pain Neck pain, bilateral arm pain and numbness and tingling COMPARISON: XR CERVICAL SPINE 5V from 10/15/2019 TECHNIQUE: Standard multiplanar multiecho sequences are performed without contrast. 3-D MIP and myelographic images are also rendered and reviewed FINDINGS: There straightening of the cervical lordosis. Cranial cervical junction has an unremarkable appearance. There is normal alignment. C2-C3: Mild right foraminal narrowing from facet and uncovertebral hypertrophy. C3-C4: Unremarkable. C4-C5: Mild degenerative disc disease with mild disc desiccation C5-C6: Mild degenerative disc disease. Minimal bulging disc slightly eccentric to the right with mild right foraminal narrowing. C6-C7: Mild degenerative disc disease. C7-T1: Unremarkable. No disc herniation or canal stenosis. The spinal cord has an unremarkable appearance. IMPRESSION: 1. Mild spondylosis of the cervical spine. Please see above for detailed description at each level. 2. No disc herniation or canal stenosis. Dictated by: Rohan Jeffers MD 10/29/2019 07:58 Electronically signed by Rohan Jeffers MD in [place] 10/29/2019 07:58
--- NOTE | 2019-10-28 12:46 | MR_ITS ---
PROCEDURE: MR LUMBAR SPINE WO CON CLINICAL INDICATION: back pain Mid and low back pain with bilateral leg pain numbness and tingling COMPARISON: None TECHNIQUE: Standard multiplanar multiecho sequences are performed without contrast. 3-D MIP and myelographic images are also rendered and reviewed FINDINGS: There is normal alignment. The spinal cord ends at the L1-L2 level. L1-L2, L2-L3, and L3-L4 have an unremarkable appearance. Minimal bulging disc at L4-5 with mild facet and ligamentum hypertrophy. L5-S1: Unremarkable. No disc herniation or canal stenosis. IMPRESSION: Minimal bulging disc L4-5 with minimal facet and ligamentum hypertrophy otherwise negative MRI of the lumbar spine Dictated by: Rohan Jeffers MD 10/29/2019 08:05 Electronically signed by Rohan Jeffers MD in [place] 10/29/2019 08:05
== END ==
PROVIDERS: Visit Provider Emergency Medicine
DX: M54.2 Cervicalgia (principal); M54.9 Dorsalgia, unspecified
CPT/HCPCS: 72141; 72148; 76376

== ENCOUNTER → 2019-11-05 10:45 | Outpatient (CLI) | payer OTHER, SELFPAY ==
--- NOTE | 2019-11-05 10:49 | XR_ITS ---
PROCEDURE: XR CALCANEUS RT MIN 2V CLINICAL INDICATION: pain, fracture Follow-up fracture COMPARISON: XR FOOT WT BEARING RT 3V from 10/15/2019 XR FOOT WT BEARING RT 3V from 11/05/2019 Images of the right foot show mild osteoarthritic change at the 1st MTP joint with minimal bony hypertrophy. Mild bunion formation. FINDINGS: Healing fracture once again noted involving the mid aspect of the calcaneus with sclerosis at the fracture site. There is also healing fracture involving the posterior aspect of the calcaneus with sclerosis noted. No change in the fractures compared to the previous exam. There is good alignment. Osteoarthritic changes involve the 1st MTP joint with bunion formation. IMPRESSION: No change healing calcaneal fractures Dictated by: Rohan Jeffers MD 11/05/2019 14:37 Electronically signed by Rohan Jeffers MD in [place] 11/05/2019 14:37
== END ==
PROVIDERS: PCP Emergency Medicine; Visit Provider Podiatrist
DX: S92.015 Nondisplaced fracture of body of left calcaneus (principal); S86.111D Strain of other muscle(s) and tendon(s) of posterior muscle group at lower leg level, right leg, subsequent encounter; M72.2 Plantar fascial fibromatosis; M79.672 Pain in left foot; M79.671 Pain in right foot
CPT/HCPCS: 73630; 73650

== ENCOUNTER → 2019-11-12 08:16 | Outpatient (CLI) | payer OTHER, SELFPAY ==
--- NOTE | 2019-11-12 08:23 | CT_ITS ---
PROCEDURE: CT FACIAL BONES WO CON CLINICAL HISTORY: facial pain, hx of fall Right-sided facial pain with visual disturbance, right orbital and nasal injury with pain COMPARISON: No exams were available for comparison TECHNIQUE: Axial images obtained with sagittal and coronal reformats. All CT scans at the facility use one or more dose reduction, viz: automated exposure control, ma/kV adjustment per patient size (including targeted exams where dose is matched to indication, i.e. head), or iterative reconstruction technique. FINDINGS: There is a faint lucency in the mid aspect of the zygomatic arch on the right consistent with a nondisplaced fracture. However, there is no obvious overlying soft tissue swelling suggesting that this may be chronic. No sinus air-fluid level. No other significant anomalies are evident. There is mild rightward nasal deviation. No obvious nasal bone fracture. The orbits have an unremarkable appearance. Scattered small nodes are present in the neck. There is some mild mucosal thickening of the sphenoid sinus on the left IMPRESSION: A lucency is present in the mid aspect of the right zygoma and may be due to nondisplaced fracture age indeterminate or an ununited ossification center. No overlying soft tissue swelling. Please correlate with patient's area of pain and tenderness. Otherwise negative Dictated by: Rohan Jeffers MD 11/12/2019 17:49 Electronically signed by Rohan Jeffers MD in [place] 11/12/2019 17:49
--- NOTE | 2019-11-12 08:23 | CT_ITS ---
PROCEDURE: CT HEAD/BRAIN WO CON CLINICAL INDICATION: change in vision Posttraumatic pain COMPARISON: HEADWO CT head/brain wo con from 02/03/2019 TECHNIQUE: Axial images obtained. All CT scans at the facility use one or more dose reduction, viz: automated exposure control, ma/kV adjustment per patient size (including targeted exams where dose is matched to indication, i.e. head), or iterative reconstruction technique. FINDINGS: No midline shift, mass effect, intracranial hemorrhage, hydrocephalus, or extra-axial fluid collection is evident. The calvarium has an unremarkable appearance. No mastoid effusion. There is mild mucosal thickening in the he node sinus on the left. IMPRESSION: No acute intracranial finding Dictated by: Rohan Jeffers MD 11/12/2019 17:44 Electronically signed by Rohan Jeffers MD in [place] 11/12/2019 17:44
== END ==
PROVIDERS: PCP Emergency Medicine; Visit Provider Emergency Medicine
DX: H53.9 Unspecified visual disturbance (principal); G50.1 Atypical facial pain
CPT/HCPCS: 70450; 70486

== ENCOUNTER → 2019-12-18 13:29 | Outpatient (CLI) | payer OTHER, SELFPAY ==
--- NOTE | 2019-12-18 13:33 | XR_ITS ---
PROCEDURE: XR SHOULDER RT MIN 2V CLINICAL INDICATION: shoulder pain Posttraumatic pain COMPARISON: SHOU3R [id number] VIEWS from 03/16/2014 SHOULDCMLT XR shoulder LT min 2V from 12/03/2018 XR SHOULDER RT MIN 2V from 10/15/2019 FINDINGS: No fracture, dislocation, lytic change, or blastic change evident. No significant degenerative change IMPRESSION: Negative right shoulder Dictated by: Rohan Jeffers MD 12/18/2019 14:08 Electronically signed by Rohan Jeffers MD in [place] 12/18/2019 14:08
== END ==
PROVIDERS: PCP Emergency Medicine; Visit Provider Orthopaedic Surgery
DX: M25.511 Pain in right shoulder (principal)
CPT/HCPCS: 73030

== ENCOUNTER → 2020-01-18 15:19 | Outpatient (CLI) | payer OTHER, SELFPAY ==
--- NOTE | 2020-01-18 15:19 | MM_ITS ---
PROCEDURE: MM DIG SCREENING MAMM BI W/CAD CLINICAL INDICATION: screening There is no personal or family history of breast cancer. There has been a previous cyst aspiration left breast with benign findings. COMPARISON: [facility] DIGITAL MAMM-SCREEN BILATERAL from 10/29/2011 [facility] DIG MAMM-SCREEN TRI from 05/06/2014 [facility] MM Dig screening mamm BI w/CAD from 12/03/2018 TECHNIQUE: Standard CC and MLO images and 3D Tomosynthesis was obtained. R2 CAD reviewed. FINDINGS: There is a diffusely dense and heterogenic parenchymal pattern somewhat lessening the sensitivity of mammography. The findings are bilateral and symmetrical. Frank images are most helpful in this type breast parenchyma. There is a benign-appearing microcalcification right breast a couple of benign-appearing microcalcifications left breast. There is no new or suspicious lesion in either breast and no suspicious microcalcifications. IMPRESSION: Diffusely dense parenchymal pattern with no suspicious lesions seen BI-RAD Category: 2 Benign Finding(s) FOLLOW-UP: 1YR 1 Year Follow-up (A letter has been sent to the patient regarding results of the study.) Dictated by: Dr. Ramana Kennedy MD 01/19/2020 11:[address] Ramana Kennedy MD in [place] 01/19/2020 11:10
== END ==
PROVIDERS: PCP Emergency Medicine; Visit Provider Emergency Medicine
DX: Z12.31 Encounter for screening mammogram for malignant neoplasm of breast (principal)
CPT/HCPCS: 77063; 77067

== ENCOUNTER → 2020-05-27 14:01 | Outpatient (CLI) | payer OTHER, SELFPAY ==
--- NOTE | 2020-05-27 14:10 | XR_ITS ---
PROCEDURE: XR WRIST LT MIN 3V CLINICAL INDICATION: Wrist pain COMPARISON: [facility] WRIST-3 VIEWS-RT from 12/29/2013 WRR3 WRIST-3 VIEWS-RT from 05/08/2017 WRISTCMLT XR wrist LT min 3V from 12/03/2018 FINDINGS: No fracture or dislocation. No lytic or blastic change. There is normal mineralization. The joint spaces are well-preserved. No significant degenerative/arthritic changes. No erosive changes evident. Other findings:None. IMPRESSION: No acute findings. Dictated by: Panchito Del Real 05/27/2020 14:39 Electronically signed by Panchito Del Real in [place] 05/27/2020 14:39
--- NOTE | 2020-05-27 14:10 | XR_ITS ---
PROCEDURE: XR CHEST 2V CLINICAL HISTORY: cp COMPARISON: CHESTW CT chest w con from 01/27/2019 CXR2V XR chest 2V from 02/03/2019 Chest from 04/21/2019 XR CHEST 2V from 10/15/2019 FINDINGS: The cardiomediastinal silhouette and pulmonary vascularity are within normal limits. The lungs are clear without infiltrates, suspicious nodules, or pleural effusions. No acute bony abnormalities. IMPRESSION: No acute findings. Dictated by: Panchito Del Real 05/27/2020 14:38 Electronically signed by Panchito Del Real in [place] 05/27/2020 14:38
== END ==
PROVIDERS: PCP Emergency Medicine; Visit Provider Orthopaedic Surgery
DX: M25.532 Pain in left wrist (principal); R06.00 Dyspnea, unspecified; R07.9 Chest pain, unspecified; R42 Dizziness and giddiness; R94.31 Abnormal electrocardiogram [ECG] [EKG]; Z72.0 Tobacco use; Z87.898 Personal history of other specified conditions
CPT/HCPCS: 71046; 73110

== ENCOUNTER 2020-06-14 13:10 | Emergency (ER) | payer OTHER, SELFPAY ==
--- NOTE | 2020-06-14 13:38 | HMH.EDUTC ---
[facility] Clinical Impression: COPD exacerbation Disposition: Home, Self-Care Condition on Discharge: Good Instructions: Chronic Obstructive Pulmonary Disease, How to Quit Tobacco Products Additional Instructions: Drink plenty of fluids. Take tylenol or ibuprofen for pain or fever. Take the medications as directed. Follow up with your regular doctor. GO TO THE ER FOR ANY WORSENING SYMPTOMS Don't start the oral steroids until tomorrow, since you had the shot here today. You need to stop smoking. Prescriptions: Promethazine/Dextromethorphan [Promethazine-Dm Syrup] 5 ml PO Q6HP PRN #240 syrup PRN Reason: Cough Transmission Status: Received by [facility] predniSONE [Deltasone 10mg tablet] 10 mg PO DAILY 9 Days #21 tab Transmission Status: Received by [facility] levoFLOXacin [Levaquin 500mg tab] 500 mg PO DAILY #7 tab Transmission Status: Received by [facility] Nystatin [Nystatin Susp 500,000 Units/5mL Udc] 5 ml PO TID 7 Days #240 udc Transmission Status: Received by [facility] Referrals: Chuck Pineda MD [Primary Care Provider] - Time of Disposition: 14:18 Medical Decision Making - Medical Records Medical records reviewed: No: I reviewed the patient's medical records. - Berry Inquiry Pt receiving controlled substance: No Vital Signs: 06/14/20 13:49 06/14/20 14:18 Temperature 97.6 F 97.6 F Temperature Source Oral Pulse Rate 74 Pulse Rate [Left Brachial] 74 Respiratory Rate 20 20 Blood Pressure 135/83 Blood Pressure [Left Arm] 135/83 Blood Pressure Mean [Left Arm] 100 Blood Pressure Source [Left Arm] Automatic Cuff Blood Pressure Position [Left Arm] Sitting 02 Sat by Pulse Oximetry 98 Oxygen Delivery Method Room Air Orders (Tests/Meds): ED MEDICATIONS Discontinued Medications Generic Name Dose Route Start Last Admin Trade Name Freq PRN Reason Stop Dose Admin Ceftriaxone Sodium 1 gm 06/14/20 14:01 06/14/20 14:06 Rocephin 1gm Vial IM 06/14/20 14:02 1 gm ONCE ONE Administration Protocol Lidocaine HCl 0 ml 06/14/20 14:01 06/14/20 14:06 Lidocaine 1% 10ml Mdv IM 06/14/20 14:02 2.1 ml ONCE ONE Administration Methylprednisolone Sodium Succinate 125 mg 06/14/20 14:01 06/14/20 14:06 Solu-Medrol 125mg/2ml Vial IM 06/14/20 14:02 125 mg ONCE ONE Administration [facility] [place] - General Stated complaint: Shortness of breath Time Seen by Provider: 06/14/20 13:44 - History of Present Illness Provider Complaint: She c/o worsening COPD symptoms over the past several days. She has a history of COPD. She states that over the past 1.5 months, she has had to see her doctor (Dr. Pineda) twice and take antibiotics and steroids. She is already on Breo, albuterol inhaler, and albuterol nebulizers. She had a chest x-ray last week that was ordered by Dr. Pineda and she states that there was no pneumonia. She denies any COVID exposure. She has been staying at home and self quarentining. - Related Data Home Medications Medication Instructions Recorded Confirmed buprenorphine 8 mg-naloxone 2 mg 1 tab SUBLINGUAL TID tab 12/03/18 06/08/20 sublingual tablet hydroxyzine pamoate 50 mg capsule PO TID cap 12/14/19 06/08/20 umeclidinium 62.5 mcg/actuation INHALATION 06/06/20 06/08/20 blister powder for inhalation Previous Rx's Medication Instructions Recorded clonidine HCl 0.1 mg tablet See Rx Instructions .ROUTE 04/29/19 .COMPLEX #90 tab omeprazole 40 mg capsule,delayed 40 mg PO DAILY #90 cap 07/14/19 release sucralfate 1 gram tablet 1 g PO TID 21 Days #63 tab 07/21/19 calcium carbonate-vitamin D3 600 1 cap PO DAILY #90 cap 09/24/19 mg (1,500 mg)-400 unit capsule venlafaxine 75 mg capsule,extended 75 mg PO DAILY #90 cap 10/06/19 release 24 hr estradiol 1 mg tablet See Rx Instructions .ROUTE 10/21/19 .COMPLEX #30 tablet quetiapine 25 mg
[2020-06-14 13:49] VITALS: BP 135/83; PULSE 74; RESP 20; TEMP 36.4; O2SAT 98; BMI 21.4
[2020-06-14 14:18] VITALS: BP 135/83; PULSE 74; RESP 20; TEMP 36.4; O2SAT 98
== END 2020-06-14 14:22 | disposition home or self-care (01) ==
PROVIDERS: Emergency Provider Nurse Practitioner Family; PCP Emergency Medicine
DX: J44.1 Chronic obstructive pulmonary disease with (acute) exacerbation (principal); F41.8 Other specified anxiety disorders; E10.9 Type 1 diabetes mellitus without complications; K21.9 Gastro-esophageal reflux disease without esophagitis; E78.5 Hyperlipidemia, unspecified; I10 Essential (primary) hypertension; F17.210 Nicotine dependence, cigarettes, uncomplicated; Z79.899 Other long term (current) drug therapy; Z88.8 Allergy status to other drugs, medicaments and biological substances; Z88.6 Allergy status to analgesic agent
CPT/HCPCS: 96372; 99201

== ENCOUNTER 2020-06-20 15:00 | Outpatient (RCR) | payer OTHER, SELFPAY ==
--- NOTE | 2020-05-09 15:01 | HMH.OTOPEV ---
OT Inpatient Evaluation Rehab OT Outpatient Eval Start: 05/09/20 14:41 Freq: Status: Active Protocol: Document 05/09/20 14:41 JENSENSUSANNAH (Rec: 05/09/20 15:00 LJ [id number]) Electronically Signed By Cristal Epps OT 05/09/20 14:41 Outpatient Therapy Subjective History Subjective History 54 year old female referred to OP OT skilled servicdes for R shoulder pain and L wrist pain. Patient has a hx of cervical spondylosis and stated having a hx of drug use with currently on suboxone. Chief Complaint Pain Symptom Type Ache Symptoms Relieved By Rest/Positioning,OTC Meds Symptoms Aggravated By Physical Activity Prior Functional Limitations None Current Functional Limitations Reaching,Housework,Dressing Symptom Description Constant and Continuous Level of pain today (0-10) 8 Pain scale - at its best (0-10) 8 Pain scale - at its worst (0-10) 8 Shoulder/Elbow Eval Shoulder Objective Measurements Palpation Tenderness tenderness shoulder exam standard right Shoulder ROM Right Shoulder Abduction Active Range of 105 Motion (degrees) Shoulder Flexion Active Range of Motion 120 (degrees) Query Text: Shoulder External Rotation Active Range 50 of Motion (degrees) Shoulder Internal Rotation Active Range 50 of Motion (degrees) Shoulder MMT Shoulder Flexion Strength Grade 3+ Fair+ Shoulder Horizontal Abduction Strength 3+ Fair+ Grade Shoulder Horizontal Adduction Strength 3+ Fair+ Grade Shoulder External Rotation Strength 3+ Fair+ Grade Shoulder Internal Rotation Strength 3+ Fair+ Grade Shoulder Special Tests impingement sign present shoulder exam right standard Shoulder Empty Can (Supraspinatus) Test Positive Right Shoulder Resendez-Allen Impingement Positive Right Test Elbow Objective Measurements Wrist/Hand Eval Wrist Range of Motion Left Wrist Extension Active Range of Motion ( 50 degrees) Wrist Flexion Active Range of Motion ( 50 degrees) Wrist Radial Deviation Active Range of 20 Motion (degrees) Wrist Ulnar Deviation Active Range of 30 Motion (degrees) Fisher Clam/Pinch Strength Right Fisher Clam Strength Measurement (lbs) 15 Left Fisher Clam Strength Measurement (lbs) 35 OT Outpatient Assessment Impairments Problems/Impairments Palpation Tenderness,Impaired Range of Motion,Impaired
== END 2020-06-20 15:05 | disposition home or self-care (01) ==
LOC: OT 15:00
PROVIDERS: PCP Emergency Medicine; Visit Provider Orthopaedic Surgery
DX: M25.511 Pain in right shoulder (principal)
CPT/HCPCS: 97165

== ENCOUNTER → 2020-07-07 08:52 | Outpatient (CLI) | payer OTHER, SELFPAY ==
--- NOTE | 2020-07-07 08:52 | FL_ITS ---
PROCEDURE: FL BARIUM SWALLOW CLINICAL INDICATION: diff swaLLOWING COMPARISON: JENNIFER,OSVALDO Braun from 06/08/2019 TECHNIQUE: In the upright position the patient was observed to swallow barium in both the AP and lateral view. The cervical esophagus was examined under fluoroscopy with images obtained. The patient was then placed prone in the right anterior oblique position and was observed to swallow barium with Valsalva technique . FLUOROSCOPY TIME: 45 seconds FINDINGS: There was no evidence of aspiration. There was normal peristalsis. No filling defects or mucosal abnormalities. No masses or strictures. No hiatal hernia IMPRESSION: Negative barium swallow. Dictated b Rohan Jeffers MD 07/07/2020 15:16 Rohan Jeffers MD in [place] 07/07/2020 15:16
--- NOTE | 2020-07-07 08:52 | US_ITS ---
PROCEDURE: US THYROID CLINICAL INDICATION: enlarged thyroid COMPARISON: DOC,US US THYROID from 05/04/2019 FINDINGS: Right lobe: 4 x 0.9 x 1.3 cm Left lobe: 3.1 x 0.6 x 1.2 cm Isthmus: Unremarkable Additional findings: IMPRESSION: Normal ultrasound of thyroid gland. The Outside images are submitted from 05/04/2019 showing diffuse enlarged bilateral thyroid gland which is no longer apparent. Dictated b Rohan Jeffers MD 07/07/2020 16:10 Rohan Jeffers MD in [place] 07/07/2020 16:10
== END ==
PROVIDERS: PCP Emergency Medicine; Visit Provider Otolaryngology
DX: E01.0 Iodine-deficiency related diffuse (endemic) goiter (principal); R13.10 Dysphagia, unspecified
CPT/HCPCS: 74220; 76536

== ENCOUNTER → 2020-08-04 12:02 | Outpatient (CLI) | payer OTHER, SELFPAY ==
--- NOTE | 2020-08-04 12:06 | XR_ITS ---
PROCEDURE: XR CHEST 2V CLINICAL HISTORY: wheezing COMPARISON: CT CHESTW CT chest w con from 01/27/2019 CR Chest from 04/21/2019 CR XR CHEST 2V from 10/15/2019 CR XR CHEST 2V from 05/27/2020 FINDINGS: The cardiomediastinal silhouette and pulmonary vascularity are within normal limits. There are diffuse somewhat ill-defined opacities in both perihilar regions and lower lobes which may be diffuse postinflammatory scarring secondary to the diffuse pneumonic infiltrate seen on the previous chest film 04/21/2019. Certainly recurrence and/or new ill-defined pneumonic infiltrates are possibilities and some areas have a ground-glass opacity appearance. There is no pleural fluid. IMPRESSION: Bilateral perihilar and lower lobe ill-defined opacities likely representing acute bilateral diffuse pneumonia and suggest clinical correlation and close follow-up. Dictated by: Dr. Ramana Kennedy MD 08/04/2020 12:51 Dr. Ramana Kennedy MD in [place] 08/04/2020 12:51
== END ==
PROVIDERS: PCP Physician Assistant; Visit Provider Physician Assistant
DX: R09.89 Other specified symptoms and signs involving the circulatory and respiratory systems (principal)
CPT/HCPCS: 71046

== ENCOUNTER → 2020-08-25 15:44 | Outpatient (CLI) | payer OTHER, SELFPAY ==
[2020-08-27 18:14] LABS: Covid-19 Nasal PCR Sendout Lex NOT DETECTED
== END ==
PROVIDERS: PCP Physician Assistant; Visit Provider Physician Assistant
DX: Z03.818 Encounter for observation for suspected exposure to other biological agents ruled out (principal)
CPT/HCPCS: U0004

== ENCOUNTER 2020-10-07 12:58 | Emergency (ER) | payer OTHER, SELFPAY ==
[2020-10-07 13:00] VITALS: BP 151/86; PULSE 73; RESP 20; TEMP 36.7; O2SAT 99; BMI 22.6
--- NOTE | 2020-10-07 13:09 | XR_ITS ---
PROCEDURE: XR SHOULDER RT MIN 2V CLINICAL INDICATION: FALL Pain following injury COMPARISON: CR SHOU3R [id number] VIEWS from 03/16/2014 DX SHOULDCMLT XR shoulder LT min 2V from 12/03/2018 CR XR SHOULDER RT MIN 2V from 10/15/2019 CR XR SHOULDER RT MIN 2V from 12/18/2019 FINDINGS: No fracture or dislocation. No lytic or blastic change. There is normal mineralization. Hypertrophic changes along the infra acromial region with subacromial stenosis. Other findings:None. IMPRESSION: No acute fracture, subacromial stenosis Dictated by: Rohan Jeffers MD 10/07/2020 15:04 Rohan Jeffers MD in [place] 10/07/2020 15:04
--- NOTE | 2020-10-07 13:09 | XR_ITS ---
PROCEDURE: XR KNEE RT 3V CLINICAL INDICATION: FALL Pain following injury COMPARISON: CR XR knee LT 4V from 02/23/2019 CR XR knee RT 4V from 02/23/2019 CR XR KNEE LT 4V from 10/15/2019 CR XR KNEE RT 4V from 10/15/2019 FINDINGS: No fracture or dislocation. No lytic or blastic change. There is normal mineralization. The joint spaces are well-preserved. No significant degenerative/arthritic changes. No erosive changes evident. Other findings:None. IMPRESSION: No acute findings. Dictated by: Rohan Jeffers MD 10/07/2020 14:58 Rohan Jeffers MD in [place] 10/07/2020 14:58
--- NOTE | 2020-10-07 13:09 | XR_ITS ---
PROCEDURE: XR HAND RT MIN 3V CLINICAL INDICATION: FALL Pain following injury, COMPARISON: CR HANDR3 HAND-RT 3 VIEWS from 12/29/2013 CR HANDR3 HAND-RT 3 VIEWS from 05/08/2017 DX [id number] XR hand LT min 3V from 12/03/2018 FINDINGS: No fracture or dislocation. No lytic or blastic change. There is normal mineralization. The joint spaces are well-preserved. No significant degenerative/arthritic changes. No erosive changes evident. Other findings:None. IMPRESSION: No acute findings. Dictated by: Rohan Jeffers MD 10/07/2020 15:01 Rohan Jeffers MD in [place] 10/07/2020 15:01
--- NOTE | 2020-10-07 13:09 | XR_ITS ---
PROCEDURE: XR HUMERUS RT CLINICAL INDICATION: FALL Posttraumatic pain COMPARISON: No exams were available for comparison FINDINGS: No fracture or dislocation. No lytic or blastic change. There is normal mineralization. The joint spaces are well-preserved. No significant degenerative/arthritic changes. No erosive changes evident. Other findings:None. IMPRESSION: No acute findings. Dictated by: Rohan Jeffers MD 10/07/2020 15:02 Rohan Jeffers MD in [place] 10/07/2020 15:02
--- NOTE | 2020-10-07 13:09 | XR_ITS ---
PROCEDURE: XR FOREARM RT 2V CLINICAL INDICATION: FALL Posttraumatic pain COMPARISON: No exams were available for comparison FINDINGS: No fracture or dislocation. No lytic or blastic change. There is normal mineralization. The joint spaces are well-preserved. No significant degenerative/arthritic changes. No erosive changes evident. Other findings:None. IMPRESSION: No acute findings. Dictated by: Rohan Jeffers MD 10/07/2020 15:02 Rohan Jeffers MD in [place] 10/07/2020 15:02
--- NOTE | 2020-10-07 13:09 | XR_ITS ---
PROCEDURE: XR HIP RT 2-3V W/PELVIS CLINICAL INDICATION: FALL Pain following injury COMPARISON: No exams were available for comparison FINDINGS: No fracture or dislocation is evident. No significant degenerative change. No lytic or blastic change. Unremarkable soft tissues. IMPRESSION: No acute findings. Dictated by: Rohan Jeffers MD 10/07/2020 14:57 Rohan Jeffers MD in [place] 10/07/2020 14:57
--- NOTE | 2020-10-07 13:09 | XR_ITS ---
PROCEDURE: XR CLAVICLE RT CLINICAL INDICATION: FALL Pain following injury COMPARISON: No exams were available for comparison FINDINGS: No fracture or dislocation. No lytic or blastic change. There is normal mineralization. The joint spaces are well-preserved. No significant degenerative/arthritic changes. No erosive changes evident. Other findings:None. IMPRESSION: No acute findings. Dictated by: Rohan Jeffers MD 10/07/2020 15:03 Rohan Jeffers MD in [place] 10/07/2020 15:03
--- NOTE | 2020-10-07 15:09 | HMH.EDUTC ---
[facility] [place] Disposition Clinical Impression: Right leg pain, Right arm pain Falls Qualifiers: Encounter type: initial encounter Qualified Code(s): W19.XXXA - Unspecified fall, initial encounter Disposition: Home, Self-Care Condition on Discharge: Good Instructions: DI for Arm Pain, DI for Leg Pain Additional Instructions: Rest the extremity, Elevate the extremity as tolerated while you are resting. Take ibuprofen for pain. I sent in a prescription to your pharmacy. Follow up with Dr. Armijo (orthopedics). Sometimes there can be fractures that don't show up well on the first set of x-rays. So, you should follow up if you continue to have symptoms. I put in a referral but you need to call his office and schedule an appointment. Follow up with your regular doctor. GO TO THE ER FOR ANY WORSENING SYMPTOMS Prescriptions: Ibuprofen [Ibuprofen 600mg Tablet] 600 mg PO Q6HP PRN #30 tab PRN Reason: Mild Pain Transmission Status: Received by [facility] Referrals: Chuck Pineda MD [Primary Care Provider] - Lowell Armijo MD [Staff Physician] - Time of Disposition: 15:13 Medical Decision Making - Medical Records Medical records reviewed: No: I reviewed the patient's medical records. - Berry Inquiry Pt receiving controlled substance: No Vital Signs: 10/07/20 13:00 10/07/20 15:15 Temperature 98.1 F 98.1 F Temperature Source Oral Pulse Rate 73 Pulse Rate [Left Brachial] 73 Respiratory Rate 20 20 Blood Pressure 151/86 H Blood Pressure [Left Arm] 151/86 H Blood Pressure Mean [Left Arm] 107 Blood Pressure Source [Left Arm] Automatic Cuff Blood Pressure Position [Left Arm] Sitting 02 Sat by Pulse Oximetry 99 Oxygen Delivery Method Room Air Orders (Tests/Meds): ORDERS Category Date Time Status XR elbow RT min 3V Stat Exams 10/07/20 13:09 Taken XR wrist RT 2V Stat Exams 10/07/20 13:09 Taken - Radiology Data #1 Image(s): Knee Image Reviewed: Yes I reviewed the patient's radiology image, Yes I have reviewed radiologist's interpretation Preliminary Findings: Normal/NAD PROCEDURE: XR KNEE RT 3V CLINICAL INDICATION: FALL Pain following injury COMPARISON: CR XR knee LT 4V from 02/23/2019 CR XR knee RT 4V from 02/23/2019 CR XR KNEE LT 4V from 10/15/2019 CR XR KNEE RT 4V from 10/15/2019 FINDINGS: No fracture or dislocation. No lytic or blastic change. There is normal mineralization. The joint spaces are well-preserved. No significant degenerative/arthritic changes. No erosive changes evident. Other findings:None. IMPRESSION: No acute findings. Dictated by: Rohan Jeffers MD 10/07/2020 14:58 Rohan Jeffers MD in [place] 10/07/2020 14:58 #2 Image(s): Hip Image Reviewed: Yes I reviewed the patient's radiology image, Yes I have reviewed radiologist's interpretation Preliminary Findings: Normal/NAD PROCEDURE: XR HIP RT 2-3V W/PELVIS CLINICAL INDICATION: FALL Pain following injury COMPARISON: No exams were available for comparison FINDINGS: No fracture or dislocation is evident. No significant degenerative change. No lytic or blastic change. Unremarkable soft tissues. IMPRESSION: No acute findings. Dictated by: Rohan Jeffers MD 10/07/2020 14:57 Rohan Jeffers MD in [place] 10/07/2020 14:57 #3 Image(s): Hand Image Reviewed: Yes I reviewed the patient's radiology image, Yes I have reviewed radiologist's interpretation Preliminary Findings: Normal/NAD PROCEDURE: XR FOREARM RT 2V CLINICAL INDICATION: FALL Posttraumatic pain COMPARISON: No exams were available for comparison FINDINGS: No fracture or dislocation. No lytic or blastic change. There is normal mineralization. The joint spaces are well-preserved. No significant degenerative/arthritic changes. No erosive changes evident. Other findings:None. IMPRESSION: No acute findings. Dictated by: Rohan Jeffers MD 10/07/2020 15:02 Griffin Jeffers
[2020-10-07 15:15] VITALS: BP 151/86; PULSE 73; RESP 20; TEMP 36.7; O2SAT 99
== END 2020-10-07 15:17 | disposition home or self-care (01) ==
PROVIDERS: Emergency Provider Nurse Practitioner Family; PCP Emergency Medicine
DX: M79.604 Pain in right leg (principal); M79.601 Pain in right arm; W19.XXXA Unspecified fall, initial encounter; M25.551 Pain in right hip; M25.561 Pain in right knee; M25.511 Pain in right shoulder; M54.9 Dorsalgia, unspecified; R07.9 Chest pain, unspecified; E10.9 Type 1 diabetes mellitus without complications; J44.9 Chronic obstructive pulmonary disease, unspecified; F41.9 Anxiety disorder, unspecified; K21.9 Gastro-esophageal reflux disease without esophagitis; E78.5 Hyperlipidemia, unspecified; I10 Essential (primary) hypertension; Z79.51 Long term (current) use of inhaled steroids; Z79.899 Other long term (current) drug therapy; Z88.6 Allergy status to analgesic agent
CPT/HCPCS: 29125; 73000; 73030; 73060; 73080; 73090; 73100; 73130; 73502; 73562; 99202

== ENCOUNTER → 2020-10-26 12:06 | Outpatient (CLI) | payer OTHER, SELFPAY ==
[2020-10-26 12:45] LABS: Adenovirus,PCR Not Detected (NotDetected); Bordetella Pertussis Not Detected (NotDetected); Chlamydophila Pneumoniae, PCR Not Detected (NotDetected); Coronavirus 19, PCR Not Detected (NotDetected); Coronavirus 229E Not Detected (NotDetected); Coronavirus NL63 Not Detected (NotDetected); Coronavirus OC43 Not Detected (NotDetected); Coronovirus HKU1,PCR Not Detected (NotDetected); Human Metapneumovirus Not Detected (NotDetected); Influenza A, PCR Not Detected (NotDetected); Influenza AH1, 2009 Not Detected (NotDetected); Influenza AH1, PCR Not Detected (NotDetected); Influenza AH3,PCR Not Detected (NotDetected); Influenza B, PCR Not Detected (NotDetected); Mycoplasma Pneumoniae, PCR Not Detected (NotDetected); Parainfluenza 1, PCR Not Detected (NotDetected); Parainfluenza 2, PCR Not Detected (NotDetected); Parainfluenza 3, PCR Not Detected (NotDetected); Parainfluenza 4, PCR Not Detected (NotDetected); Respiratory Syncytial Virus Not Detected (NotDetected); Rhinovirus/Enterovirus Not Detected (NotDetected)
== END ==
PROVIDERS: PCP Emergency Medicine; Visit Provider Emergency Medicine
DX: Z03.818 Encounter for observation for suspected exposure to other biological agents ruled out (principal)
CPT/HCPCS: 87581; 87633; 87798

== ENCOUNTER 2020-12-13 20:50 | Observation (INO) | payer OTHER, SELFPAY ==
[2020-12-13 20:50] VITALS: BP 137/85; PULSE 95; RESP 18; TEMP 36.9; O2SAT 100; BMI 22.8
--- NOTE | 2020-12-13 20:59 | XR_ITS ---
PROCEDURE: XR CHEST 2V CLINICAL HISTORY: CP Chest pain COMPARISON: CT CHESTW CT chest w con from 01/27/2019 CR XR CHEST 2V from 10/15/2019 CR XR CHEST 2V from 05/27/2020 CR XR CHEST 2V from 08/04/2020 FINDINGS: The cardiomediastinal silhouette and pulmonary vascularity are within normal limits. The lungs are clear without infiltrates, suspicious nodules, or pleural effusions. There is a healing fracture involving the left 10th rib laterally IMPRESSION: No acute findings. Dictated by: Rohan Jeffers MD 12/14/2020 05:40 Rohan Jeffers MD in [place] 12/14/2020 05:40
--- NOTE | 2020-12-13 20:59 | ECG_ITS ---
APPROVED REPORT Exam: Resting ECG HR:93 bpm ECG Measurements Heart Rate 93 AXES SC 136 P 61 QRSd 82 QRS 44 QT 358 T 89 QTc 445 Conclusion Normal sinus rhythm Normal ECG Electronically signed by : Evaristo Gonzalez, 12/14/2020 06:25:28
--- NOTE | 2020-12-13 21:01 | HMH.EDCP ---
ED Disposition Clinical Impression: Tobacco abuse, Renal insufficiency, Hypokalemia Chest pain Qualifiers: Chest pain type: precordial pain Qualified Code(s): R07.2 - Precordial pain Disposition: Admitted as Observation Condition on Discharge: Good Referrals: PCP,No [Non-Staff] - - Critical Care Critical Care Time: No Attestation: On 12/13/20, the high probability of a clinically significant, sudden or life threatening deterioration of the following system(s) required my full and direct attention, intervention and personal management. The time I documented below is in addition to time spent performing reported procedures but includes the following listed in this critical care notation. Medical Decision Making - Medical Records Medical records reviewed: Yes: I reviewed the patient's medical records. - Berry Inquiry Pt receiving controlled substance: No Vital Signs: 12/13/20 20:50 Temperature 98.4 F Temperature Source Oral Pulse Rate [Left Radial] 95 H Respiratory Rate 18 Blood Pressure [Right Arm] 137/85 Blood Pressure Mean [Right Arm] 102 Blood Pressure Source [Right Arm] Automatic Cuff Blood Pressure Position [Right Arm] Supine 02 Sat by Pulse Oximetry 100 Oxygen Delivery Method Room Air - Lab Data Lab results reviewed: Yes: I reviewed the patient's lab results. Lab Results 12/13/20 21:00: WBC 12.7 H, RBC 4.55, Hgb 13.1, Hct 41.7, MCV 91.5, MCH 28.7, MCHC 31.4 L, RDW 17.0, Plt Count 373, MPV 7.5, Neut % (Auto) 79.1, Lymph % (Auto) 14.7, [place] % (Auto) 4.8, Eos % (Auto) 1.0, Baso % (Auto) 0.4, Neut # (Auto) 10.0 H, Lymph # (Auto) 1.9, [place] # (Auto) 0.6, Eos # (Auto) 0.1, Baso # (Auto) 0.1 12/13/20 21:00: Sodium 141, Potassium 3.1 L, Chloride 108 H, Carbon Dioxide 21 L, Anion Gap 15.1 H, BUN 14, Creatinine 1.40 H, Estimated Creat Clear 42, Estimated GFR 39 L, Est GFR ( Amer) 48 L, Glucose 126 H, Calcium 9.6, Total Bilirubin 0.3, Direct Bilirubin 0.3, Conjugated Bilirubin 0.0, Indirect Bilirubin 0.0, Unconjugated Bilirubin 0.0, AST 17, ALT 13, Alkaline Phosphatase 73, Troponin I 0.01, Total Protein 8.2, Albumin 4.6 12/13/20 21:00: SARS-CoV-2 IgG Ab (Rapid) Negative, SARS-CoV-2 IgM Ab (Rapid) Negative Result diagrams: 12/13/20 21:00 12/13/20 21:00 Orders (Tests/Meds): ED MEDICATIONS Generic Name Dose Route Start Last Admin Trade Name Freq PRN Reason Stop Dose Admin Sodium Chloride 1,000 mls @ 999 mls/hr 12/13/20 21:30 12/13/20 21:37 Sod Chlor 0.9% 1000ml Bag IV 12/13/20 22:30 999 mls/hr .Q1H1M CHAYA Administration Sodium Chloride 8 ml 12/13/20 21:26 Sodium Chloride 0.9% 10ml Vial IV 01/12/21 21:25 NEEDED PRN dilute pepcid Tizanidine HCl 4 mg 12/14/20 23:30 Tizanidine 4mg Tablet PO 01/13/21 23:29 HS CHAYA Discontinued Medications Generic Name Dose Route Start Last Admin Trade Name Freq PRN Reason Stop Dose Admin Famotidine 20 mg 12/13/20 21:26 12/13/20 21:37 Famotidine 20mg/2ml Vial IV 12/13/20 21:27 20 mg ONCE ONE Administration Gabapentin 600 mg 12/13/20 22:51 12/13/20 23:00 Gabapentin 600mg Tablet PO 12/13/20 22:52 600 mg ONCE ONE Administration Ketorolac Tromethamine 30 mg 12/13/20 21:26 12/13/20 21:37 Ketorolac 30mg/Ml Vial IV 12/13/20 21:27 30 mg ONCE ONE Administration Metoclopramide HCl 10 mg 12/13/20 21:26 12/13/20 21:37 Metoclopramide Hcl 10mg/2ml Vial IVP 12/13/20 21:27 10 mg ONCE ONE Administration Nitroglycerin 0.5 gm 12/13/20 22:58 12/13/20 23:00 Nitroglycerin 1 Gm Ointment TD 12/13/20 22:59 0.5 gm ONCE ONE Administration Ondansetron HCl 4 mg 12/13/20 21:26 12/13/20 21:36 Ondansetron 4mg/2ml Vial IV 12/13/20 21:27 4 mg ONCE ONE Administration ORDERS Category Date Time Status CT cervical spine wo con Stat Cat Scan 12/13/20 21:[address] thoracic spine wo con Stat Cat Scan 12/13/20 21:46 Taken Chest XR 2 view (NOT portable) [XR chest 2V] Stat Exa
[2020-12-13 21:06] LABS: Basophils # 0.1 K/mm3 (0-0.2); Basophils % 0.4 % (0.1-2.0); Eosinophils # 0.1 K/mm3 (0.0-0.4); Hematocrit 41.7 % (37.0-47.0); Hemoglobin 13.1 g/dL (12.2-16.2); Lymphocytes # 1.9 K/mm3 (0.7-4.5); Lymphocytes % 14.7 % (10-50); Mean Corpuscular HGB Conc 31.4 g/dL (31.8-35.4); Mean Corpuscular Hemoglobin 28.7 pg (27.0-31.2); Mean Corpuscular Volume 91.5 fl (81-99); Mean Platelet Volume 7.5 fl (7.4-10.4); Monocytes # 0.6 K/mm3 (0.1-1.0); Monocytes % 4.8 % (1.7-9.3); Neutrophils % 79.1 % (37.0-80.0); Platelet Count 373 K/mm3 (142-424); Red Blood Count 4.55 M/mm3 (4.20-5.40); White Blood Count 12.7 K/mm3 (4.8-10.8)
[2020-12-13 21:16] LABS: Chloride 108 mmol/L (98-107); Potassium 3.1 mmoL/L (3.5-5.1); Sodium 141 mmol/L (136-145)
[2020-12-13 21:19] LABS: Alanine Aminotransferase 13 U/L (12-78); Alkaline Phosphatase 73 U/L (38-126); Anion Gap 15.1 mEq/L (5-15); Aspartate Amino Transferase 17 U/L (14-36); Bilirubin,Direct 0.3 mg/dl (0.0-0.4); Bilirubin,Total 0.3 mg/dl (0.2-1.3); Blood Urea Nitrogen 14 mg/dl (7-17); Calcium 9.6 mg/dl (8.4-10.2); Carbon Dioxide 21 mmol/L (22.0-30.0); Creatinine Clearance Estimated 42 mL/min (50-200); Estimated Glomerular Filt Rate 39 ml/min (>60); GFR (African American) 48 ML/MIN (>60); Glucose 126 mg/dl (74-100)
[2020-12-13 21:20] LABS: Albumin Level 4.6 g/dl (3.5-5.0); Total Protein,Serum 8.2 g/dl (6.3-8.2)
[2020-12-13 21:34] LABS: Troponin I 0.01 ng/ml (0.00-0.034)
[2020-12-13 21:36] LABS: Coronavirus 19 IgG Antibody Negative (Negative); Coronavirus 19 IgM Antibody Negative (Negative)
--- NOTE | 2020-12-13 21:44 | XR_ITS ---
PROCEDURE: XR CLAVICLE RT CLINICAL INDICATION: fall Posttraumatic pain COMPARISON: CR XR CLAVICLE RT from 10/07/2020 CR XR SHOULDER RT MIN 2V from 12/13/2020 FINDINGS: No fracture or dislocation. No lytic or blastic change. There is normal mineralization. The joint spaces are well-preserved. No significant degenerative/arthritic changes. No erosive changes evident. Other findings:None. IMPRESSION: No acute findings. Dictated by: Rohan Jeffers MD 12/14/2020 05:37 Rohan Jeffers MD in [facility] 12/14/2020 05:37
--- NOTE | 2020-12-13 21:45 | CT_ITS ---
PROCEDURE: CT CERVICAL SPINE WO CON CLINICAL INDICATION: fall Posttraumatic pain Neck injury with pain, contusion/abrasion or hematoma, cervical sprain/strain the COMPARISON: CT SPCERVWO CT cervical spine wo con from 02/03/2019 TECHNIQUE: Axial images obtained with sagittal and coronal reformats. All CT scans at the facility use one or more dose reduction, viz: automated exposure control, ma/kV adjustment per patient size (including targeted exams where dose is matched to indication, i.e. head), or iterative reconstruction technique. Axial spiral CT scanning performed of the cervical spine beginning at the base of the skull and continuing to the upper T-spine. 3-D multiplanar reconstruction with 3-D manipulation of volumetric data set in image rendering was completed by the radiologist and/or technologist with the supervision of the radiologist on independent workstation. FINDINGS: Straightening of the cervical lordosis. No acute fracture or dislocation. Degenerative disc disease is present at C5-C6 and to lesser degree at C4-C5. There is mild right-sided foraminal narrowing at C5-C6 from uncovertebral hypertrophy. The scattered small nodes are present in the neck. Lung apices are clear. IMPRESSION: 1. No acute fracture. 2. Mild cervical spondylosis Dictated by: Rohan Jeffers MD 12/14/2020 06:21 Rohan Jeffers MD in [facility] 12/14/2020 06:21
--- NOTE | 2020-12-13 21:46 | CT_ITS ---
PROCEDURE: CT THORACIC SPINE WO CON CLINICAL HISTORY: fall Back injury with pain, contusion/abrasion or hematoma, cervical sprain/strain posttraumatic pain COMPARISON: No exams were available for comparison TECHNIQUE: Axial images obtained with sagittal and coronal reformats. All CT scans at the facility use one or more dose reduction, viz: automated exposure control, ma/kV adjustment per patient size (including targeted exams where dose is matched to indication, i.e. head), or iterative reconstruction technique. FINDINGS: No fracture or dislocation. There is minimal midthoracic curvature convex right. Minimal spondylosis noted in the upper thoracic spine. No lytic or blastic change. IMPRESSION: No acute finding Dictated by: Rohan Jeffers MD 12/14/2020 06:25 Rohan Jeffers MD in [facility] 12/14/2020 06:25
[2020-12-13 22:00] VITALS: BP 148/73; PULSE 93; RESP 21; O2SAT 96
[2020-12-13 23:00] VITALS: BP 140/73; PULSE 92; RESP 16; O2SAT 97
[2020-12-14] VITALS (21 sets, daily range): BP systolic 107–200; BP diastolic 63–96; PULSE 62–126; RESP 12–20; TEMP 36.6; O2SAT 95–100
--- NOTE | 2020-12-14 | IR_ITS ---
APPROVED REPORT Patient Location: Inpatient Janitor And Cleaner: BILLIE Winkler RT (R) PROCEDURES Left heart catheterization Left ventriculogram Selective coronary angiogram INDICATION Unstable angina Informed consent was obtained prior to the procedure. COMPLICATIONS none Estimated Blood Loss: less than 10 mls TECHNIQUE One percent lidocaine used to anesthetize the right anterior aspect of the wrist. The right radial artery was accessed via the Seldinger technique. A 6 Australian sheath was placed in the right radial artery. 2.5 mg of verapamil, 800 mcg of nitroglycerin, 1mg Lidocaine and 5000 U Heparin were given through the arterial sheath. The trap catheter and 6 Australian Kalina right were also used to perform left heart catheterization, left ventriculogram and selective coronary angiogram. At the end of the procedure the sheath was removed good hemostasis was achieved using Traclet band, patient was transferred to the postop holding area in stable condition. ANGIOGRAPHIC RESULTS The left main artery Normal The left anterior descending artery Is proximally normal with mid vessel 20 to 30% smooth stenosis The circumflex artery Large codominant normal The right coronary artery Codominant normal The KWONG ventriculogram reveals Hyperdynamic 75% The left ventricular end-diastolic pressure 10 mmHg IMPRESSION Mild nonflow limiting coronary disease Hyperdynamic ventricle Normal LVEDP PLAN 1. Risk factor modification 2. Treatment of diastolic dysfunction 3. Evaluation of noncardiac symptoms Electronically signed by : Toni Silverio, 12/14/2020 11:46:18
[2020-12-14 00:52] LABS: Troponin I 0.01 ng/ml (0.00-0.034)
--- NOTE | 2020-12-14 02:30 | PC.NURSE ---
Pt has been resting comfortably w/ no complaints reported to staff. Pt remains A&Ox4 and vitals remain stable. awake overnight monitor showing NSR. She is tolerating RA w/o issues.
--- NOTE | 2020-12-14 04:40 | PC.NURSE ---
Blood drawn from follow up trop w/o issues. Pt has no complaints reported to staff. VSS. Call light in reach of pt. Pt ambulates independently to br.
[2020-12-14 05:14] LABS: Troponin I < 0.01 ng/ml (0.00-0.034)
--- NOTE | 2020-12-14 07:06 | CA_ITS ---
APPROVED REPORT EXAM: Comprehensive 2D, Doppler, and color-flow Echocardiogram [employer] Field Supervisor: Jaylyn Beth, RT(R) Ht: 5 ft 2 in Wt: 124lbs BSA: 1.56 BP: 137/85 mmHg Indications: CP, COPD, smoker, HTN, DM, hyperlipidemia,, family history HD, GERD 2D Dimensions Aortic Root 1.55 cm F: 2.7 - 3.3 LVOT 1.86 cm (M/F) 1.5-2.5 M-Mode Dimensions RVDd 1.51 cm (0.9-2.6) LA Diam 3.16 cm (1.9-4.0) LVDd 5.31 cm (3.5-5.7) Ao Diam 2.22 cm (2.0-3.7) LVDs 3.77 cm (3.5-5.7) IVSd 0.75 cm (0.6-1.1) PWd 0.72 cm (0.6-1.1) EF (Teich) 55.30% FS 29.00% EDV (Teich) 135.90 mL ESV (Teich) 60.80 mL LV Diastology E Decel Time 150.00 (160-240 msec) E/A Ratio 1.0 MED E' 8.90 (< 7 cm/sec) E'/MED E' Ratio 14.91 (>14) LAT E' 12.80 (<10 cm/sec) E/LAT E' Ratio 10.37 (>14) Aortic Valve LVOT Max 151.00 (70-110 cm/s) LVOT VTI 31.37 cm AoV Peak Miko. 192.00 (50-130 cm/s) AI PHT 840.00 ms AO Peak GR. 14.80 mmHg AO Mean GR. 7.50 (<5 mmHg) AO VTI 39.66 (18-25 cm) JALEEL (VTI) 2.15 (2.5-4.5 cm2) Mitral Valve MV E Max Miko. 133.00 (40-130 cm/s) MV A Velocity 137.00 (40-130 cm/s) E/A Ratio 0.97 MV Decel. Time 150.00 (160-240 ms) MV PHT 44.00 ms Left Ventricle Left atrium is mildly enlarged, left ventricle is normal size, visually estimated ejection fraction 55% with no regional wall motion abnormality, diastolic parameters are within normal range. Right Ventricle Right atrium and right ventricle are normal size and contractility. Aortic Valve Aortic valve is thickened and calcified, there is no aortic stenosis, there is at least moderate aortic insufficiency. Mitral Valve Mitral valve leaflets are minimally thickened, there is no mitral stenosis, there is mild mitral regurgitation. Tricuspid Valve Tricuspid valve is grossly normal, there is mild tricuspid regurgitation. Tricuspid regurgitation jet velocity is inadequate for calculation of left ventricular systolic pressure. Pulmonic Valve Pulmonic valve is poorly visualized. Great Vessels Aortic root is normal size. Pericardium No significant pericardial effusion noted. Conclusion 1. Normal left ventricular size, preserved left ventricular systolic function, visually estimated ejection fraction 55% with no regional wall motion abnormality, diastolic parameters are within normal range. 2. Thickened and calcified aortic valve without aortic stenosis, there is moderate aortic insufficiency. 3. Mild mitral and tricuspid regurgitation. 4. No significant pericardial effusion noted. Electronically signed by : Vipin Chaparro, 12/15/2020 14:01:25
[2020-12-14 07:57] LABS: Anion Gap 7.6 mEq/L (5-15); Blood Urea Nitrogen 13 mg/dl (7-17); Carbon Dioxide 20 mmol/L (22.0-30.0); Chloride 115 mmol/L (98-107); Creatinine Clearance Estimated 49 mL/min (50-200); Estimated Glomerular Filt Rate 47 ml/min (>60); GFR (African American) 57 ML/MIN (>60); Glucose 95 mg/dl (74-100); Potassium 3.6 mmoL/L (3.5-5.1); Sodium 139 mmol/L (136-145)
[2020-12-14 08:06] LABS: Calcium 8.4 mg/dl (8.4-10.2)
[2020-12-14 08:30] LABS: Basophils # 0.1 K/mm3 (0-0.2); Basophils % 0.4 % (0.1-2.0); Eosinophils # 0.2 K/mm3 (0.0-0.4); Eosinophils % 1.8 % (0.1-12.0); Hematocrit 37.4 % (37.0-47.0); Lymphocytes # 3.8 K/mm3 (0.7-4.5); Mean Corpuscular HGB Conc 30.4 g/dL (31.8-35.4); Mean Corpuscular Hemoglobin 27.9 pg (27.0-31.2); Mean Corpuscular Volume 91.8 fl (81-99); Mean Platelet Volume 7.6 fl (7.4-10.4); Monocytes # 0.7 K/mm3 (0.1-1.0); Monocytes % 5.9 % (1.7-9.3); Neutrophils # 7.5 K/mm3 (1.8-7.8); Neutrophils % 60.9 % (37.0-80.0); Platelet Count 328 K/mm3 (142-424); Red Blood Count 4.07 M/mm3 (4.20-5.40); Red Cell Distribution Width 16.8 % (11.5-17.5); White Blood Count 12.4 K/mm3 (4.8-10.8)
[2020-12-14 08:33] LABS: Hemoglobin 11.5 g/dL (12.2-16.2)
--- NOTE | 2020-12-14 08:47 | PC.NURSE ---
Cardiology in with pt
--- NOTE | 2020-12-14 08:47 | PC.NURSE ---
Per cardiology pt are to have cath today
--- NOTE | 2020-12-14 08:49 | PC.NURSE ---
Finn Ramírez in with pt.
--- NOTE | 2020-12-14 09:16 | HMH.CNCARD ---
History of Present Illness Consult date: 12/14/20 Requesting physician: Chuck Pineda Consult reason: chest pain Chief complaint: chest pain History of present illness: This is a 54-year-old white female who presented to the emergency department with complaints of chest pain. She states her pain started about a week and a half ago. It is in the substernal aspect of her chest. She states that this is a sharp pressure sensation that radiates down her right arm. She states at its worst it is a severe anywhere from a 7 to a 10 out of 10 in intensity. She states that the pain is associated with shortness of breath, nausea and diaphoresis. She denies any vomiting. The patient states that this is going on for a week and a half intermittently but last night the pain got so severe that she decided to come into the emergency department. This is worse with exertion. She states that it does improve with rest but does not completely resolve. She does have a history of hypertension and hyperlipidemia. She is a current smoker. She states that her dad had an [place] and she has a few other family members on her father side of the family that have coronary artery disease as well. She denies any fever, chills, vomiting, diarrhea, PND or orthopnea. [facility] History I have reviewed the patient's past medical history: Yes 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: Reports:: Anxiety, Cancer, Chronic Obstructive Pulmonary Disease (COPD), Depression, Diabetes Mellitus Type 1, Gastroesophageal Reflux Disease(GERD), Hepatitis, Hiatal Hernia, Hyperlipidemia, Hypertension, Lung Disease Denies:: Diabetes Mellitus Type 2, Internal Pacemaker, MRSA, Seizures *Have you ever received a pneumonia vaccine?: Yes *Have you received a flu vaccine this season?: Yes Other 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: Reports: Other. Denies: Blood Transfusion Reaction Laterality Cases: Left: Arthroscopy Knee, Lumpectomy, Bilateral: Breast Biopsy, Carpal Tunnel Release Other Surgeries: Yes: Cancer Surgery, Cholecystectomy, Colonoscopy, , Hernia Repair, Hysterectomy-Total, Other. No: Pacemaker Amputation: No Fractures: Yes - *Social History Smoking Status: Current every day smoker Tobacco Type: cigarettes # Packs/Day (cigarettes): 1 #Yrs smoked (if former smoker): 45 Alcohol Intake: never Alcohol Intake Frequency:: other Substance Use Type: heroin, IV drugs, former substance user *Occupational Status:: other Housing: house Household Members: friend(s) *Travel in the last 8 weeks: None - Psychiatric History Pschychiatric History:: Reports:: Anxiety, Depression Family Hx:: Cancer, Coronary Artery Disease, Diabetes, Heart Attack, Hypertension Meds Home Medications Medication Instructions Recorded Confirmed Type buprenorphine 8 mg-naloxone 2 mg 1 tab SUBLINGUAL TID tab 12/03/18 12/13/20 History sublingual tablet hydroxyzine pamoate 50 mg capsule 50 mg PO TID cap 12/14/19 12/13/20 History calcium carbonate-vitamin D3 600 1 cap PO DAILY #90 cap 10/19/20 12/13/20 Rx mg (1,500 mg)-400 unit capsule Albuterol Sulfate [Proventil Hfa] 2 puff INHALATION Q6H 12/13/20 12/13/20 History Alendronate Sodium [Fosamax 70mg 70 mg PO WEEKLY 12/13/20 12/13/20 History Tablet] Famotidine 40 mg PO DAILY 12/13/20 12/13/20 History Fluticasone/Vilanterol [Breo See Rx Instructions .ROUTE .COMPLEX 12/13/20 12/13/20 History Ellipta 100-25 Mcg INH] Gabapentin 800 mg PO QID 12/13/20 12/13/20 History Ibuprofen 800 mg PO DAILY 12/13/20 12/13/20 History Isosorbide Mononitrate [Imdur 30mg 30 mg PO DAILY 12/13/20 12/13/20 History ER tablet] Metoprolol Tartrate 50 mg PO BID 12/13/20 12/13/20 History Tizanidine HCl 4 mg PO TID 12/13/20 12/13/20 History Trazodone HCl 100 mg PO HS 12/13/20 12/13/20 History Umeclidinium [place] [Incruse See Rx Instructions .ROUTE .COMPLEX 12/13/20 12/13/20 History Ellipta] cloNIDine HCL [Catapres] 0.2 mg PO DAILY 12/13/20 12/13/20 History estradioL [Estradiol] 1 mg PO DAILY 12/13/20 12/13/20 History
[2020-12-14 09:49] LABS: Cholesterol 153 mg/dl (140-200); Triglycerides 141 mg/dl (30-150); VLDL Cholesterol 28 mg/dL (0-40)
[2020-12-14 09:50] LABS: Chol/HDL Ratio 3.3 (1-3.5); HDL Cholesterol 46 mg/dl (40-60)
[2020-12-14 10:00] LABS: Direct LDL Cholesterol 77.57 mg/dL (100-129)
--- NOTE | 2020-12-14 12:15 | HMH.HPDC ---
General - General Admission date:: 12/14/20 Discharge date: 12/14/20 *Admission Date: 12/14/20 *Chief complaint: Chest Pain *History of present illness: 54-year-old female patient presented to emergency department with complaints of substernal chest pain radiating up into her right neck and down her right arm. She reports pain is sharp. She also reports shortness of breath, nausea and diaphoresis during chest pain. She reports chest pain has been off and on for 1 week has been 7 out of 10 during episodes, yesterday was 10 out of 10 and she decided to present to the emergency department. She reports chest pain would occur during exercise and also at rest and will sometimes resolve with rest of happened during exercise. She is a longtime smoker, hypertension, and hyperlipidemia she also has a family history of coronary artery disease. She denies fever/chills/body aches or nausea/vomiting/diarrhea She does report having a fall recently and was some right sided shoulder pain, she reports the pain she has experienced in the last few days is different from the original pain after fall. She denies any loss of range of motion of right upper extremity after the fall or presently Chest x-ray reveals no acute findings Shoulder x-ray, C-spine CT, and T-spine CT have no acute findings [place] History I have reviewed the patient's past medical history: Yes 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: Reports:: Anxiety, Cancer, Chronic Obstructive Pulmonary Disease (COPD), Depression, Gastroesophageal Reflux Disease(GERD), Hepatitis, Hiatal Hernia, Hyperlipidemia, Hypertension, Lung Disease Denies:: Diabetes Mellitus Type 1, Diabetes Mellitus Type 2, Internal Pacemaker, MRSA, Seizures *Have you ever received a pneumonia vaccine?: Yes *Have you received a flu vaccine this season?: Yes Other 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: Reports: Other. Denies: Blood Transfusion Reaction Laterality Cases: Left: Arthroscopy Knee, Lumpectomy, Bilateral: Breast Biopsy, Carpal Tunnel Release Other Surgeries: Yes: Cancer Surgery, Cholecystectomy, Colonoscopy, , Hernia Repair, Hysterectomy-Total, Hysterectomy-Partial, Other. No: Pacemaker Amputation: No Fractures: Yes - *Social History Last grade of school completed: High school graduate Smoking Status: Current every day smoker Tobacco Type: cigarettes # Packs/Day (cigarettes): 1 #Yrs smoked (if former smoker): 45 Alcohol Intake: former Alcohol Intake Frequency:: other Substance Use Type: denies use, former substance user *Occupational Status:: unemployed Housing: house Household Members: friend(s) *Travel in the last 8 weeks: Outside the [facility] - Psychiatric History Pschychiatric History:: Reports:: Anxiety, Depression Family Hx:: Mental illness Review of Systems - Review of Systems Review of systems:: pertinent systems reviewed and negative unless documented below - Constitutional Denies body ache(s), Denies fever(s) - Eyes Denies dry eyes, Denies itchy eyes - ENT Denies abnormal hearing, Denies lip swelling - *Cardiovascular Reports chest pain, Reports chest pain at rest, Reports shortness of breath - *Respiratory Reports shortness of breath, Denies change in phlegm color, Denies chest congestion - *Gastrointestinal Denies abdominal pain, Denies incontinent of stools - *Musculoskeletal Denies abnormal walking, Denies back pain - Integumentary/Breasts Denies hair loss, Denies sensitivity to light - *Neurologic Denies abnormal movements, Denies seizure-like activity - Psychiatric Denies behavioral changes, Denies irritability - Endocrine Denies cold intolerance, Denies heat intolerance - Hematologic/Lymphatic Denies easy bleeding, Denies easy bruising - Allergic/Immunologic Denies GI upset with certain foods Exam Vital signs and Labs for Last 24 Hours: Temp Pulse Resp BP Pulse Ox 98 F 100 H 20 200/94 H 99 12/14/20 09:41 12/14/20 11:51 12/14/20 11:51 12/14/20 11:51 12/14
--- NOTE | 2020-12-14 13:09 | CA_ITS ---
APPROVED REPORT [employer] Core Feeder: Anjelica Valenzuela RVT Study Quality: Good Indications: hypertension, elevated creatine Risk Factors Hypertension Hyperlipidemia Diabetes Smoking Renal Artery Doppler Origin (R) 225.7/ cm/sec Proximal (R) 208.1/ cm/sec Mid (R) 142.9/ cm/sec Distal (R) 125.2/ cm/sec Renal Aorta Ratio (R) 1.66 Segmental A. (R) 48.5/11.8 cm/sec RI: 0.75 Segmental A. Sup (R) 48.5/11.8 cm/sec Segmental A. Mid (R) 35.5/11.8 cm/sec Segmental A. Inf (R) 37.0/13.0 cm/sec Origin (L) 238.2/ cm/sec Proximal (L) 457.2/ cm/sec Mid (L) 292.1/ cm/sec Distal (L) 109.1/ cm/sec Renal Aorta Ratio (L) 3.37 Segmental A. (L) 35.4/10.9 cm/sec RI: 0.69 Segmental A. Sup (L) 23.9/6.5 cm/sec Segmental A. Mid (L) 33.7/9.8 cm/sec Segmental A. Inf (L) 35.4/10.9 cm/sec Renal Measurements Kidney Size (R) 9.1x4.9 cm Cortical Thickness (R) 1.2 cm Kidney Size (L) 10.6x5.9 cm Cortical Thickness (L) 1.7 cm Findings Study suggests less than 60% stenosis of the bilateral renal arteries. Conclusion Study suggests less than 60% stenosis of the bilateral renal arteries. Electronically signed by : Rohan Jeffers MD 12/14/2020 17:40:52
== END 2020-12-14 14:54 | disposition home or self-care (01) ==
LOC: ER 22:50 → 2ND 12-14 01:20
PROVIDERS: Internal Medicine; Nurse Practitioner Family; Admitting Provider Emergency Medicine; Emergency Provider Emergency Medicine; PCP Emergency Medicine; Visit Provider Emergency Medicine
DX: I25.110 Atherosclerotic heart disease of native coronary artery with unstable angina pectoris (principal); I10 Essential (primary) hypertension; Z72.0 Tobacco use; Z82.49 Family history of ischemic heart disease and other diseases of the circulatory system
CPT/HCPCS: 71046; 72125; 72128; 73000; 73030; 80048; 80061; 80076; 84484; 85025; 86328; 93005; 93306; 93458; 93976; 96365; 96375; 99152; 99153; 99284; C1725; C1769; G0378; J1644; J2405; Q9967

== ENCOUNTER 2020-12-15 08:25 | Day surgery (SDC) | payer OTHER, SELFPAY ==
[2020-12-15] VITALS (10 sets, daily range): BP systolic 149–165; BP diastolic 80–100; PULSE 63–73; RESP 17–20; TEMP 36.8; O2SAT 95–100; BMI 22.9
--- NOTE | 2020-12-15 | IR_ITS ---
APPROVED REPORT Patient Location: Outpatient PROCEDURES Bilateral selective renal angiogram Drug-eluting stent deployment to the left renal artery INDICATION Renal artery stenosis, Renovascular hypertension, CKD stage II, Abnormal renal duplex Informed consent was obtained prior to the procedure. COMPLICATIONS none Estimated Blood Loss: less than 10 mls TECHNIQUE 1% lidocaine used to anesthetize the right femoral groin. The right femoral artery was accessed via the Seldinger technique. A 4 Irish sheath was placed in the right femoral artery. The JR4 catheter was used to selectively intubate each renal artery. At the end the diagnostic procedure therapeutic heparin was administered in the 4 Irish sheath was exchanged for 7 Irish sheath. A 7 Irish RADER catheter was used to intubate the left renal artery and a BMW wire was placed distally. A 3.5 x 15 mm resolute [place] stent was deployed at 20 yg reducing the stenosis. A 4 mm x 15 mm compliant balloon was then deployed at 20 yg to post dilate. At the end of the procedure the apparatus was removed the groin was reprepped gloves were changed sheath was removed good hemostasis was achieved using Perclose device patient was transferred to the postop holding in stable condition ANGIOGRAPHIC RESULTS Right renal artery singular normal Left renal artery singular and has an ostial proximal eccentric greater than 60% stenosis IMPRESSION Severe stenosis involving the left renal artery with successful stenting reducing the lesion to 0% with 1 drug-eluting stent PLAN 1. Aspirin and Plavix for 6 months 2. LDL less than 55 3. Risk factor modification 4. Avoidance of tobacco products Electronically signed by : Toni Silverio, 12/15/2020 12:17:30
[2020-12-15 08:58] LABS: Basophils # 0.1 K/mm3 (0-0.2); Basophils % 0.7 % (0.1-2.0); Eosinophils # 0.4 K/mm3 (0.0-0.4); Eosinophils % 3.3 % (0.1-12.0); Hematocrit 37.9 % (37.0-47.0); Hemoglobin 12.5 g/dL (12.2-16.2); Lymphocytes % 32.3 % (10-50); Mean Corpuscular HGB Conc 33.1 g/dL (31.8-35.4); Mean Corpuscular Hemoglobin 29.1 pg (27.0-31.2); Mean Corpuscular Volume 88.1 fl (81-99); Mean Platelet Volume 8.2 fl (7.4-10.4); Monocytes # 0.7 K/mm3 (0.1-1.0); Monocytes % 5.8 % (1.7-9.3); Neutrophils # 7.2 K/mm3 (1.8-7.8); Neutrophils % 57.8 % (37.0-80.0); Platelet Count 364 K/mm3 (142-424); Red Cell Distribution Width 16.9 % (11.5-17.5); White Blood Count 12.4 K/mm3 (4.8-10.8)
[2020-12-15 09:04] LABS: Anion Gap 12.5 mEq/L (5-15); Blood Urea Nitrogen 12 mg/dl (7-17); Carbon Dioxide 19 mmol/L (22.0-30.0); Chloride 114 mmol/L (98-107); Creatinine Clearance Estimated 42 mL/min (50-200); Estimated Glomerular Filt Rate 39 ml/min (>60); GFR (African American) 48 ML/MIN (>60); Glucose 99 mg/dl (74-100); Potassium 3.5 mmoL/L (3.5-5.1); Sodium 142 mmol/L (136-145)
[2020-12-15 13:58] LABS: CATHL Activated Clotting Time 396 SEC (74-125)
--- NOTE | 2020-12-15 15:38 | HMH.PHACLD ---
Brenda Rush has received discharge medication counseling on the following medications: PATIENT RECEIVED PERIPHERAL STENT TODAY. MD DISCHARGING WITH PLAVIX 75 MG DAILY, ASPIRIN 81 MG DAILY, AND ATORVASTATIN 40 MG HS.
== END 2020-12-15 15:09 | disposition home or self-care (01) ==
LOC: CATHLAB 08:26
PROVIDERS: PCP Emergency Medicine; Visit Provider Internal Medicine
DX: I70.1 Atherosclerosis of renal artery (principal); N18.2 Chronic kidney disease, stage 2 (mild); J44.9 Chronic obstructive pulmonary disease, unspecified; Z72.0 Tobacco use; I25.10 Atherosclerotic heart disease of native coronary artery without angina pectoris; Z88.5 Allergy status to narcotic agent; Z88.8 Allergy status to other drugs, medicaments and biological substances; Z79.51 Long term (current) use of inhaled steroids; Z79.899 Other long term (current) drug therapy; I15.0 Renovascular hypertension
CPT/HCPCS: 37236; 80048; 85025; 85347; 99152; 99153; C1725; C1760; C1769; C1874; C1894; J1644; Q9967

== ENCOUNTER → 2021-03-22 13:28 | Outpatient (CLI) | payer OTHER, SELFPAY ==
[2021-03-22 13:31] LABS: Adenovirus F 40/41, stool Not Detected (NotDetected); Astrovirus Not Detected (NotDetected); Campylobacter Not Detected (NotDetected); Clostridium Difficile A/B, PCR Not Detected (NotDetected); Cryptosporidium Not Detected (NotDetected); Cyclospora Cayetanesis Not Detected (NotDetected); Entamoeba histolytica Not Detected (NotDetected); Enteroaggregative E coli Not Detected (NotDetected); Enteropathogenic E coli Not Detected (NotDetected); Enterotoxigenic E coli Not Detected (NotDetected); Giardia lamblia Not Detected (NotDetected); Norovirus Not Detected (NotDetected); Plesimonas Shigalloides, PCR Not Detected (NotDetected); Rotavirus A Not Detected (NotDetected); Salmonella, PCR Not Detected (NotDetected); Sapovirus Not Detected (NotDetected); Shiga-like toxin E coli Not Detected (NotDetected); Shigella Enterovasive E coli Not Detected (NotDetected); Vibrio Cholerae Not Detected (NotDetected); Vibrio, PCR Not Detected (NotDetected); Yersinia Entercolitica, PCR Not Detected (NotDetected)
[2021-03-22 14:20] LABS: Basophils % 0.3 % (0.1-2.0); Eosinophils % 0.4 % (0.1-12.0); Hematocrit 41.2 % (37.0-47.0); Hemoglobin 13.1 g/dL (12.2-16.2); Lymphocytes # 1.1 K/mm3 (0.7-4.5); Lymphocytes % 12.4 % (10-50); Mean Corpuscular HGB Conc 31.8 g/dL (31.8-35.4); Mean Corpuscular Hemoglobin 30.5 pg (27.0-31.2); Monocytes # 0.3 K/mm3 (0.1-1.0); Neutrophils # 7.6 K/mm3 (1.8-7.8); Neutrophils % 83.9 % (37.0-80.0); Platelet Count 383 K/mm3 (142-424); Red Blood Count 4.29 M/mm3 (4.20-5.40); Red Cell Distribution Width 19.4 % (11.5-17.5); White Blood Count 9.1 K/mm3 (4.8-10.8)
[2021-03-22 14:29] LABS: Chloride 114 mmol/L (98-107); Potassium 3.8 mmoL/L (3.5-5.1); Sodium 140 mmol/L (136-145)
[2021-03-22 14:31] LABS: Alkaline Phosphatase 74 U/L (38-126); Bilirubin,Total 0.3 mg/dl (0.2-1.3); Blood Urea Nitrogen 7 mg/dl (7-17); Estimated Glomerular Filt Rate 47 ml/min (>60); GFR (African American) 57 ML/MIN (>60)
[2021-03-22 14:32] LABS: Albumin Level 4.2 g/dl (3.5-5.0); Albumin/Globulin Ratio 1.4 (1.1-1.8); Anion Gap 12.8 mEq/L (5-15); Calcium 9.4 mg/dl (8.4-10.2); Carbon Dioxide 17 mmol/L (22.0-30.0); Chol/HDL Ratio 2.7 (1-3.5); Cholesterol 167 mg/dl (140-200); Globulin 3.1 g/dL (1.3-3.2); Glucose 111 mg/dl (74-100); HDL Cholesterol 63 mg/dl (40-60); Total Protein,Serum 7.3 g/dl (6.3-8.2); Triglycerides 172 mg/dl (30-150); VLDL Cholesterol 34 mg/dL (0-40)
[2021-03-22 14:43] LABS: Bilirubin,Direct 0.1 mg/dl (0.0-0.4)
[2021-03-22 14:56] LABS: T4 (Thyroxine) 7.4 ug/dl (5.53-11.0)
[2021-03-22 15:10] LABS: Thyroid Stimulating Hormone 1.79 uIU/mL (0.465-4.68)
[2021-03-22 15:46] LABS: Alanine Aminotransferase 6 U/L (12-78); Aspartate Amino Transferase 15 U/L (14-36)
== END ==
PROVIDERS: Visit Provider Physician Assistant
DX: R55 Syncope and collapse (principal); Z86.79 Personal history of other diseases of the circulatory system; R19.7 Diarrhea, unspecified; Z79.899 Other long term (current) drug therapy; Z72.0 Tobacco use
CPT/HCPCS: 36415; 80053; 80061; 82248; 84436; 84443; 85025; 87507

== ENCOUNTER → 2021-03-28 11:47 | Outpatient (CLI) | payer OTHER, SELFPAY | PROVIDERS: PCP Emergency Medicine; Visit Provider Urology | DX: R00.2 Palpitations (principal); R00.0 Tachycardia, unspecified | CPT/HCPCS: 93270 ==

== ENCOUNTER → 2021-04-11 10:56 | Outpatient (CLI) | payer OTHER, SELFPAY ==
[2021-04-11 12:05] LABS: Chloride 100 mmol/L (98-107); Potassium 4.2 mmoL/L (3.5-5.1); Sodium 136 mmol/L (136-145)
[2021-04-11 12:07] LABS: Blood Urea Nitrogen 18 mg/dl (7-17); Estimated Glomerular Filt Rate 39 ml/min (>60); GFR (African American) 47 ML/MIN (>60)
[2021-04-11 12:08] LABS: Alanine Aminotransferase 10 U/L (12-78); Albumin Level 4.1 g/dl (3.5-5.0); Alkaline Phosphatase 50 U/L (38-126); Anion Gap 14.2 mEq/L (5-15); Aspartate Amino Transferase 23 U/L (14-36); Bilirubin,Direct 0.3 mg/dl (0.0-0.4); Bilirubin,Total 0.3 mg/dl (0.2-1.3); Calcium 9.6 mg/dl (8.4-10.2); Carbon Dioxide 26 mmol/L (22.0-30.0); Chol/HDL Ratio 1.7 (1-3.5); Cholesterol 167 mg/dl (140-200); Glucose 105 mg/dl (74-100); HDL Cholesterol 97 mg/dl (40-60); Total Protein,Serum 6.9 g/dl (6.3-8.2); Triglycerides 80 mg/dl (30-150); VLDL Cholesterol 16 mg/dL (0-40)
[2021-04-11 12:19] LABS: Direct LDL Cholesterol 56.46 mg/dL (100-129)
== END ==
PROVIDERS: Visit Provider Urology
DX: R06.09 Other forms of dyspnea (principal); R55 Syncope and collapse; R94.31 Abnormal electrocardiogram [ECG] [EKG]; I25.10 Atherosclerotic heart disease of native coronary artery without angina pectoris; E78.2 Mixed hyperlipidemia; Z72.0 Tobacco use
CPT/HCPCS: 36415; 80048; 80061; 80076

== ENCOUNTER → 2021-05-17 14:12 | Outpatient (CLI) | payer OTHER, SELFPAY ==
--- NOTE | 2021-05-17 14:12 | MR_ITS ---
PROCEDURE: MR LUMBAR SPINE WO CON CLINICAL INDICATION: LBP, incontinence COMPARISON: None TECHNIQUE: Standard multiplanar multiecho sequences are performed without contrast. 3-D MIP and myelographic images are also rendered and reviewed FINDINGS: Slight scoliosis convex to the right. No acute compression fractures. Slight posterior retrolisthesis of L5 on S1. Conus medullaris appears normal terminating at mid L1. Posterior elements appear intact. Visualized kidneys and abdominal aorta are normal. This study presumes 5 [id number] lumbar vertebrae. IMPRESSION: L1-2 through L3-4: Within normal limits. L4-5: Mild diffuse posterior annular disc bulge without nerve root compression or spinal canal stenosis. Moderate left and [id number] right neural foraminal narrowing and mild bilateral facet spondylosis. L5-S1: Mild diffuse posterior annular disc bulge without nerve root compression or spinal canal stenosis. Mild bilateral neural foraminal narrowing and mild bilateral facet spondylosis. Dictated by: River Strauss MD 05/17/2021 15:46 River Strauss MD in [facility] 05/17/2021 15:46
== END ==
PROVIDERS: PCP Emergency Medicine; Visit Provider Physician Assistant
DX: M54.16 Radiculopathy, lumbar region (principal)
CPT/HCPCS: 72148; 76376

== ENCOUNTER → 2021-06-21 12:48 | Outpatient (CLI) | payer OTHER, SELFPAY ==
--- NOTE | 2021-06-21 12:52 | CT_ITS ---
PROCEDURE INFORMATION: Exam: CT Neck With Contrast Exam date and time: 06/21/2021 12:52 PM Age: 55 years old Clinical indication: Other: Dysphagia TECHNIQUE: Imaging protocol: Computed tomography images of the neck with contrast. Radiation optimization: All CT scans at this facility use at least one of these dose optimization techniques: automated exposure control; mA and/or kV adjustment per patient size (includes targeted exams where dose is matched to clinical indication); or iterative reconstruction. Contrast material: ISOVUE; Contrast volume: 75 ml; Contrast route: IV; COMPARISON: CT CERVICAL SPINE WO CON 12/13/2020 10:07 PM FINDINGS: Nasopharynx: Unremarkable. Oropharynx: Unremarkable. No significant tonsillar enlargement. Hypopharynx: Unremarkable. Larynx: Unremarkable. Normal epiglottis. Retropharyngeal space: Unremarkable. Submandibular/Parotid glands: Normal. Glands are normal in size. Thyroid: Normal. No enlarged or calcified nodules. Lymph nodes: Unremarkable. No lymphadenopathy. Trachea: Visualized trachea is unremarkable. Lungs: There is a calcified granuloma within the left upper lobe. Bones/joints: Unremarkable. No acute fracture. Vasculature: Dense calcification is present at the left internal carotid artery origin. This is causing at least 50% stenosis. Further evaluation with a carotid ultrasound is recommended. The proximal left internal carotid artery is tortuous and partially retropharyngeal in location. Soft tissues: Unremarkable. No significant soft tissue swelling. IMPRESSION: 1. No acute abnormality. 2. Chronic findings as discussed above.
--- NOTE | 2021-06-21 12:52 | CT_ITS ---
PROCEDURE: CT LUNG SCREENING CLINICAL INDICATION: lung cancer screening Current smoker 40 pack year smoking history COMPARISON: CT CHESTW CT chest w con from 01/27/2019 TECHNIQUE: The exam was performed on a GE Light Speed [address] scanner using 2.90 mGy CTDI. A low dose helical CT CHEST was performed on a multi-detector scanner. All CT scans at the facility use one or more dose reduction, viz: automated exposure control, ma/kV adjustment per patient size (including targeted exams where dose is matched to indication, i.e. head), or iterative reconstruction technique. The LDCT was performed in a facility that meets the criteria for the screening program. Data regarding this exam was submitted to ACR which is an approved registry. The order for this exam indicates that it came as a result of a lung cancer screening counseling shard decision-making visit that included all the elements required of such a visit including smoking cessation. The radiologist interpreting this exam meets the CMS criteria for the LDCT lung cancer screening program. The exam is reported using the Lung-RADS classification scale and reported to the ACR registry. NOTE: This study was performed for the specific purposes of lung cancer screening and is not an alternative to diagnostic chest CT. RADIATION DOSE: CTDI vol(CT dose Index-volume) = 2.90mG DLP (Dose Length Product) = 96.38 mGcm FINDINGS: COPD changes. Stable 3 mm nodule right upper lobe 03/31. Stable 2 mm nodule right upper lobe centrally 03/22 stable 3 mm nodule right upper lobe 03/29. Calcified granuloma left upper lobe. Stable small area of fissural thickening on the left. There is a new 4 mm nodule in the left lower lobe which appears semi solid OTHER FINDINGS: Minimal pericardial thickening. Old left-sided rib fractures. Old granulomatous disease. IMPRESSION: Lung-RADS Category 3 Probably Benign. There are multiple stable nodules. There is 1 new nodule in the left lower lobe at 4 mm. Six-month follow-up suggested. Follow-up: [address] Chest without and with contrast. Dictated by: Rohan Jeffers MD 07/03/2021 08:47 Rohan Jeffers MD in [place] 07/03/2021 08:47
== END ==
PROVIDERS: PCP Emergency Medicine; Visit Provider Emergency Medicine
DX: Z87.891 Personal history of nicotine dependence (principal); Z12.2 Encounter for screening for malignant neoplasm of respiratory organs; R13.10 Dysphagia, unspecified
CPT/HCPCS: 70491; 71271; Q9967

== ENCOUNTER → 2021-07-10 12:41 | Outpatient (CLI) | payer OTHER, SELFPAY ==
--- NOTE | 2021-07-10 12:42 | CA_ITS ---
APPROVED REPORT Employment Law Attorney: Anjelica Valenzuela RVT Laterality: Bilateral Study Quality: Excellent Indications: Bruit, Dizziness and Vertigo Risk Factors Hypertension: Hyperlipidemia Smoking Doppler Spectral Velocity Analysis ECA (R) 146.50/29.90 cm/s ECA (L) 124.00/21.40 cm/s dICA (R) 123.00/52.40 cm/s dICA (L) 104.80/35.30 cm/s Joey (R) 158.30/29.90 cm/s Joey (L) 144.40/42.80 cm/s pICA (R) 83.40/29.90 cm/s pICA (L) 142.20/47.00 cm/s dCCA (R) 106.90/32.10 cm/s dCCA (L) 134.70/43.80 cm/s pCCA (R) 112.30/32.10 cm/s pCCA (L) 119.80/34.20 cm/s Vert (R) 69.50/21.40 cm/s Vert (L) 103.70/34.20 cm/s ICA/CCA 1.48 ICA/CCA 1.07 Findings Study suggests 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 Study suggests 20-49% stenosis of the left internal cartoid artery. Antegrade flow seen bilateral vertebral arteries. 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 Study suggests 20-49% stenosis of the left internal cartoid artery. Antegrade flow seen bilateral vertebral arteries. Electronically signed by : Rohan Jeffers MD 07/10/2021 16:34:38
== END ==
PROVIDERS: PCP Emergency Medicine; Visit Provider Emergency Medicine
DX: R09.89 Other specified symptoms and signs involving the circulatory and respiratory systems (principal)
CPT/HCPCS: 93880

== ENCOUNTER → 2021-08-11 16:33 | Outpatient (CLI) | payer OTHER, SELFPAY ==
[2021-08-11 16:35] LABS: Adenovirus F 40/41, stool Not Detected (NotDetected); Astrovirus Not Detected (NotDetected); Campylobacter Not Detected (NotDetected); Clostridium Difficile A/B, PCR Not Detected (NotDetected); Cryptosporidium Not Detected (NotDetected); Cyclospora Cayetanesis Not Detected (NotDetected); Entamoeba histolytica Not Detected (NotDetected); Enteroaggregative E coli Not Detected (NotDetected); Enteropathogenic E coli Not Detected (NotDetected); Enterotoxigenic E coli Not Detected (NotDetected); Giardia lamblia Not Detected (NotDetected); Norovirus Not Detected (NotDetected); Plesimonas Shigalloides, PCR Not Detected (NotDetected); Rotavirus A Not Detected (NotDetected); Salmonella, PCR Not Detected (NotDetected); Sapovirus Not Detected (NotDetected); Shiga-like toxin E coli Not Detected (NotDetected); Shigella Enterovasive E coli Not Detected (NotDetected); Vibrio Cholerae Not Detected (NotDetected); Vibrio, PCR Not Detected (NotDetected); Yersinia Entercolitica, PCR Not Detected (NotDetected)
== END ==
PROVIDERS: Visit Provider Emergency Medicine
DX: R19.7 Diarrhea, unspecified (principal)
CPT/HCPCS: 87506

== ENCOUNTER → 2021-10-03 12:14 | Outpatient (CLI) | payer OTHER, SELFPAY | PROVIDERS: PCP Emergency Medicine; Visit Provider Internal Medicine Cardiovascular Disease | DX: Z01.812 Encounter for preprocedural laboratory examination (principal); Z11.52 Encounter for screening for COVID-19; R42 Dizziness and giddiness; R06.00 Dyspnea, unspecified | CPT/HCPCS: C9803; U0003; U0005 ==

== ENCOUNTER → 2021-10-03 12:46 | Outpatient (CLI) | payer OTHER, SELFPAY | PROVIDERS: Visit Provider Urology | DX: Z20.822 Contact with and (suspected) exposure to COVID-19 (principal) | CPT/HCPCS: C9803; U0003; U0005 ==

== ENCOUNTER → 2022-01-15 16:00 | Outpatient (CLI) | payer OTHER, SELFPAY | PROVIDERS: Visit Provider Emergency Medicine | DX: R82.90 Unspecified abnormal findings in urine (principal) | CPT/HCPCS: 87086 ==

== ENCOUNTER → 2022-03-02 15:32 | Outpatient (CLI) | payer OTHER, SELFPAY ==
--- NOTE | 2022-03-02 15:36 | XR_ITS ---
FINAL REPORT CLINICAL HISTORY: dyspnea COMPARISON: 12/13/2020 FINDINGS: Two views of the chest were obtained. The heart size and pulmonary vascularity are within normal limits. The mediastinum is normal. No acute pulmonary abnormality is identified. There is no pneumothorax. The bony thorax is intact. IMPRESSION: No active cardiopulmonary disease. Reviewed, Interpreted and Dictated by Edward Espinoza III, MD Transcribed by Arturo Hilliard Authenticated by Edward Espinoza III, MD on 03/02/2022 04:22:37 PM [facility]
== END ==
PROVIDERS: PCP Emergency Medicine; Visit Provider Physician Assistant
DX: R06.09 Other forms of dyspnea (principal)
CPT/HCPCS: 71046

== ENCOUNTER 2022-03-04 04:10 | Emergency (ER) | payer OTHER, SELFPAY ==
[2022-03-04 04:03] VITALS: BP 138/77; PULSE 104; RESP 27; TEMP 36.6; O2SAT 90; BMI 23.8
--- NOTE | 2022-03-04 04:06 | XR_ITS ---
PROCEDURE INFORMATION: Exam: XR Chest Exam date and time: 03/04/2022 4:15 AM Age: 56 years old Clinical indication: Shortness of breath; Additional info: SOA TECHNIQUE: Imaging protocol: XR of the chest. Views: 1 view. COMPARISON: CR XR CHEST 2V 03/02/2022 3:37 PM FINDINGS: Lungs: Unremarkable. No consolidation. Pleural spaces: Unremarkable. No pleural effusion. No pneumothorax. Heart/Mediastinum: Unremarkable. No cardiomegaly. Bones/joints: Unremarkable. IMPRESSION: No acute findings.
[2022-03-04 04:18] VITALS: BMI 23.8
[2022-03-04 04:23] LABS: Microscopic, Urine URINE MICROSCOPIC (MICROSCOPIC)
[2022-03-04 04:25] LABS: ABG HCO3 20.4 mmhg (22.0-26.0); ABG Oxygen Saturation 92 % (90-100); ABG PCO2 36.2 mmhg (35.0-45.0); ABG PH 7.37 mmol/L (7.35-7.45); ABG PO2 65.9 mmhg (80-100); ABG TCO2 21.5 mmhg (23-27)
[2022-03-04 04:26] LABS: Allen's Test Y; Oxygen RA %; Source Right Radial
[2022-03-04 04:29] LABS: Appearance,Urine CLEAR (Clear); Bilirubin,Urine Negative (Negative); Blood, Urine Negative (Negative); Color,Urine YELLOW (Yellow); Glucose,Urine (UA) Negative (Negative); Ketones,Urine Negative (Negative); Leukocyte Esterase,Urine Negative (Negative); Nitrate,Urine Negative (Negative); Protein,Urine Negative (Negative); Specific Gravity, Urine 1.015 (1.005-1.030); Urobilinogen,Urine 0.2 EU/dl (0.2)
[2022-03-04 04:43] LABS: Benzodiazepines Screen,Urine Negative ng/ml (<200)
[2022-03-04 04:44] LABS: Amphetamine/Metha Screen,Urine Negative ng/ml (<1000)
[2022-03-04 04:45] LABS: Barbiturates Screen,Urine Negative ng/ml (<200); Methadone Screen,Urine Negative ng/ml (<300)
[2022-03-04 04:46] LABS: Cannabinoid Screen,Urine Negative ng/ml (<50); Cocaine Screen,Urine Negative ng/ml (<300)
[2022-03-04 04:47] LABS: Opiate Screen,Urine Negative ng/ml (<300)
[2022-03-04 04:48] LABS: Phencyclidine Screen,Urine Negative ng/ml (<25)
[2022-03-04 04:50] LABS: Basophils # 0.1 K/mm3 (0-0.2); Basophils % 0.5 % (0.1-2.0); Eosinophils # 0.2 K/mm3 (0.0-0.4); Hematocrit 32.1 % (37.0-47.0); Hemoglobin 10.4 g/dL (12.2-16.2); Lymphocytes # 1.5 K/mm3 (0.7-4.5); Lymphocytes % 14.1 % (10-50); Mean Corpuscular HGB Conc 32.3 g/dL (31.8-35.4); Mean Corpuscular Hemoglobin 29.3 pg (27.0-31.2); Mean Platelet Volume 8.3 fl (7.4-10.4); Monocytes # 0.5 K/mm3 (0.1-1.0); Monocytes % 4.7 % (1.7-9.3); Neutrophils # 8.6 K/mm3 (1.8-7.8); Neutrophils % 78.7 % (37.0-80.0); Platelet Count 290 K/mm3 (142-424); Red Blood Count 3.53 M/mm3 (4.20-5.40); Red Cell Distribution Width 16.8 % (11.5-17.5); White Blood Count 10.9 K/mm3 (4.8-10.8)
--- NOTE | 2022-03-04 04:54 | PC.NURSE ---
Pt requesting to leave ama and wants to call her ride.
[2022-03-04 05:01] LABS: Magnesium 1.6 mg/dl (1.6-2.3)
[2022-03-04 05:02] LABS: Alanine Aminotransferase 9 U/L (12-78); Albumin Level 2.2 g/dl (3.5-5.0); Alkaline Phosphatase 48 U/L (38-126); Anion Gap 5.7 mEq/L (5-15); Aspartate Amino Transferase 16 U/L (14-36); Bilirubin,Total 0.2 mg/dl (0.2-1.3); Blood Urea Nitrogen 15 mg/dl (7-17); Calcium 6.4 mg/dl (8.4-10.2); Carbon Dioxide 16 mmol/L (22.0-30.0); Creatinine Clearance Estimated 85 mL/min (50-200); Estimated Glomerular Filt Rate 87 ml/min (>60); GFR (African American) 105 ML/MIN (>60); Globulin 2.2 g/dL (1.3-3.2); Glucose 79 mg/dl (74-100); Lactic Acid 0.8 mmol/L (0.7-2.1); Sodium 141 mmol/L (136-145); Total Protein,Serum 4.4 g/dl (6.3-8.2)
[2022-03-04 05:04] LABS: Chloride 122 mmol/L (98-107); Potassium 2.7 mmoL/L (3.5-5.1)
[2022-03-04 05:06] LABS: C-Reactive Protein 67.5 mg/L (0-4)
[2022-03-04 05:12] LABS: NT Pro Brain Natriuretic Pep. 597 pg/mL (0-125)
--- NOTE | 2022-03-04 05:15 | PC.NURSE ---
Pt ambulated to the BR on room air, she had exertional dsypnea and SOA. sats dropped to 87%. She continues to refuse treatment and management. Pt called room mate and she is on her way to get her. Pt's resting room air is 95% at this time. Educated pt on the o2 needs and continued treatment but she continues to decline continue management.
[2022-03-04 05:17] LABS: Troponin I 0.01 ng/ml (0.00-0.034)
[2022-03-04 05:20] LABS: Procalcitonin 0.578 ng/mL (0.0-2.0)
--- NOTE | 2022-03-04 05:28 | HMH.EDSOB ---
ED Disposition Clinical Impression: Acute exacerbation of chronic obstructive airways disease, Hypokalemia Anemia Qualifiers: Anemia type: unspecified type Qualified Code(s): D64.9 - Anemia, unspecified Disposition: Home, Self-Care Condition on Discharge: Fair Instructions: DI for Chronic Obstructive Pulmonary Disease Additional Instructions: fluids and see pcp for follow up Prescriptions: predniSONE [Prednisone 20mg Tab] 20 mg PO BID #10 tab Transmission Status: Pending to [facility] Referrals: Chuck Pineda MD [Primary Care Provider] - - Critical Care Critical Care Time: No Attestation: On 03/04/22, the high probability of a clinically significant, sudden or life threatening deterioration of the following system(s) required my full and direct attention, intervention and personal management. The time I documented below is in addition to time spent performing reported procedures but includes the following listed in this critical care notation. Medical Decision Making - Medical Records Medical records reviewed: Yes: I reviewed the patient's medical records. - Berry Inquiry Pt receiving controlled substance: No Vital Signs: 03/04/22 04:03 Temperature 97.9 F Temperature Source Oral Pulse Rate [Right] 104 H Respiratory Rate 27 H Blood Pressure [Right Arm] 138/77 Blood Pressure Mean [Right Arm] 97 Blood Pressure Source [Right Arm] Automatic Cuff 02 Sat by Pulse Oximetry 90 L Oxygen Delivery Method Room Air - Lab Data Lab results reviewed: Yes: I reviewed the patient's lab results. Lab Results 03/04/22 04:06: Specimen Source Right radial, O2 % Ra, ABG pH 7.37, ABG pCO2 36.2, ABG pO2 65.9 L, ABG HCO3 20.4 L, ABG Total CO2 21.5 L, ABG O2 Saturation 92, ABG Base Excess -5.0 L, Rohan Test Y 03/04/22 04:17: Urine Color Yellow, Urine Appearance Clear, Urine pH 6.0, Ur Specific [place] 1.015, Urine Protein Negative, Urine Glucose (UA) Negative, Urine Ketones Negative, Urine Blood Negative, Urine Nitrate Negative, Urine Bilirubin Negative, Urine Urobilinogen 0.2, Ur Leukocyte Esterase Negative, Ur Squamous Epith Cells 5-10 03/04/22 04:17: Urine Opiates Screen Negative, Urine Methadone Screen Negative, Ur Barbituates Screen Negative, Ur Phencyclidine Scrn Negative, Ur Amphetamines Screen Negative, U Benzodiazepines Scrn Negative, Urine Cocaine Screen Negative, U Marijuana (THC) Screen Negative 03/04/22 04:40: Sodium 141, Potassium 2.7 L*, Chloride 122 H, Carbon Dioxide 16 L, Anion Gap 5.7, BUN 15, Creatinine 0.70, Estimated Creat Clear 85, Estimated GFR 87, Est GFR ( Amer) 105, Glucose 79, Calcium 6.4 L, Total Bilirubin 0.2, AST 16, ALT 9 L, Alkaline Phosphatase 48, NT-Pro-B Natriuret Pep 597 H, Total Protein 4.4 L D, Albumin 2.2 L, Globulin 2.2, Albumin/Globulin Ratio 1.0 L 03/04/22 04:40: Lactate 0.8 03/04/22 04:40: Magnesium 1.6, Troponin I 0.01, C-Reactive Protein 67.5 H, Procalcitonin 0.578 03/04/22 04:40: WBC 10.9 H, RBC 3.53 L, Hgb 10.4 L, Hct 32.1 L, MCV 91.0, MCH 29.3, MCHC 32.3, RDW 16.8, Plt Count 290, MPV 8.3, Neut % (Auto) 78.7, Lymph % (Auto) 14.1, [place] % (Auto) 4.7, Eos % (Auto) 2.0, Baso % (Auto) 0.5, Neut # (Auto) 8.6 H, Lymph # (Auto) 1.5, [place] # (Auto) 0.5, Eos # (Auto) 0.2, Baso # (Auto) 0.1 Result diagrams: 03/04/22 04:40 03/04/22 04:40 Orders (Tests/Meds): ED MEDICATIONS Generic Name Dose Route Start Last Admin Trade Name Freq PRN Reason Stop Dose Admin Sodium Chloride 1,000 mls @ 999 mls/hr 03/04/22 04:30 03/04/22 04:26 Sod Chlor 0.9% 1000ml Bag IV 03/04/22 05:30 999 mls/hr .Q1H1M CHAYA Administration Discontinued Medications Generic Name Dose Route Start Last Admin Trade Name Freq PRN Reason Stop Dose Admin Sodium Chloride 500 mls @ 999 mls/hr 03/04/22 04:30 Sod Chlor 0.9% 1000ml Bag IV 03/04/22 05:00 .Q31M CHAYA Methylprednisolone Sodium Succinate 125 mg 03/04/22 04:19 03/04/22 04:27 Methylprednisolone Sod Succ 1
[2022-03-04 05:54] VITALS: BP 154/78; PULSE 99; RESP 24; TEMP 36.7; O2SAT 93
== END 2022-03-04 05:56 | disposition home or self-care (01) ==
PROVIDERS: Emergency Provider Emergency Medicine; PCP Emergency Medicine
DX: J44.0 Chronic obstructive pulmonary disease with (acute) lower respiratory infection (principal)
CPT/HCPCS: 71045; 80053; 80305; 81001; 82803; 83605; 83735; 83880; 84145; 84484; 85025; 86140; 87040; 93005; 96365; 96375

== ENCOUNTER 2022-03-04 11:42 | Inpatient (IN) | payer OTHER, SELFPAY ==
[2022-03-04] VITALS (11 sets, daily range): BP systolic 116–170; BP diastolic 63–100; PULSE 79–121; RESP 14–29; TEMP 36.5–37; O2SAT 89–100; BMI 28.7; BMI 22.0
--- NOTE | 2022-03-04 04:10 | ECG_ITS ---
APPROVED REPORT Exam: Resting ECG HR:97 bpm ECG Measurements Heart Rate 97 AXES WV 116 P 71 QRSd 92 QRS 80 QT 328 T 75 QTc 382 Conclusion SINUS RHYTHM WITH SHORT WV INTERVAL BORDERLINE ECG UNCONFIRMED REPORT Electronically signed by : Evaristo Gonzalez MD 03/07/2022 17:37:20
--- NOTE | 2022-03-04 11:39 | ECG_ITS ---
APPROVED REPORT Exam: Resting ECG HR:109 bpm ECG Measurements Heart Rate 109 AXES MI 116 P 80 QRSd 86 QRS 75 QT 334 T 74 QTc 398 Conclusion SINUS TACHYCARDIA WITH SHORT MI INTERVAL ABNORMAL RHYTHM ECG UNCONFIRMED REPORT Electronically signed by : Evaristo Gonzalez MD 03/07/2022 17:37:13
--- NOTE | 2022-03-04 11:41 | XR_ITS ---
PROCEDURE INFORMATION: Exam: XR Chest Exam date and time: 03/04/2022 11:45 AM Age: 56 years old Clinical indication: Cough and shortness of breath; Smoker's cough TECHNIQUE: Imaging protocol: XR of the chest. Views: 1 view. COMPARISON: CR XR CHEST PORTABLE 03/04/2022 4:15 AM FINDINGS: Lungs: No focal consolidation. Pleural spaces: Unremarkable. No pleural effusion. No pneumothorax. Heart/Mediastinum: Unremarkable. No cardiomegaly. Bones/joints: Unremarkable. IMPRESSION: No evidence of an active pulmonary process.
--- NOTE | 2022-03-04 11:49 | HMH.EDGENADL ---
ED Disposition Clinical Impression: COPD exacerbation Respiratory failure with hypoxia Qualifiers: Chronicity: acute Qualified Code(s): J96.01 - Acute respiratory failure with hypoxia Disposition: Admitted As Inpatient Condition on Discharge: Fair Time of Disposition: 14:33 - Critical Care Critical Care Time: No Attestation: On , the high probability of a clinically significant, sudden or life threatening deterioration of the following system(s) required my full and direct attention, intervention and personal management. The time I documented below is in addition to time spent performing reported procedures but includes the following listed in this critical care notation. Medical Decision Making - Medical Records Medical records reviewed: Yes: I reviewed the patient's medical records. - Berry Inquiry Pt receiving controlled substance: No Vital Signs: 03/04/22 11:41 03/04/22 12:00 03/04/22 12:30 Temperature 98.5 F Temperature Source Oral Pulse Rate 92 H 95 H Pulse Rate [Left Radial] 121 H Respiratory Rate 17 24 24 Blood Pressure 149/86 H 136/71 Blood Pressure [Right Arm] 157/100 H Blood Pressure Mean 107 98 Blood Pressure Mean [Right Arm] 119 02 Sat by Pulse Oximetry 93 L 92 L 89 L Oxygen Delivery Method Room Air 03/04/22 13:01 03/04/22 13:31 03/04/22 13:45 Temperature Temperature Source Pulse Rate 121 H 101 H 90 Pulse Rate [Left Radial] Respiratory Rate 28 H 20 Blood Pressure 161/95 H 170/97 H 170/97 H Blood Pressure [Right Arm] Blood Pressure Mean 117 111 Blood Pressure Mean [Right Arm] 02 Sat by Pulse Oximetry 95 100 100 Oxygen Delivery Method Nasal Cannula BiPAP - Lab Data Lab Results 03/04/22 12:30: WBC 9.2, RBC 3.92 L, Hgb 11.1 L, Hct 36.3 L, MCV 92.5, MCH 28.4, MCHC 30.7 L, RDW 16.9, Plt Count 274, MPV 7.8, Neut % (Auto) 96.1 H, Lymph % (Auto) 2.8 L, [place] % (Auto) 0.7 L, Eos % (Auto) 0.0 L, Baso % (Auto) 0.3, Neut # (Auto) 8.9 H, Lymph # (Auto) 0.3 L, [place] # (Auto) 0.1, Eos # (Auto) 0.0, Baso # (Auto) 0.0, Total Counted 100, Neutrophils % (Manual) 95 H, Lymphocytes % (Manual) 3 L, Monocytes % (Manual) 2, Platelet Estimate Normal, Hypochromasia 1+ 03/04/22 12:30: Sodium 142, Potassium 4.2 D, Chloride 110 H, Carbon Dioxide 24, Anion Gap 12.2, BUN 18 H, Creatinine 1.40 H D, Estimated Creat Clear 51, Estimated GFR 39 L, Est GFR ( Amer) 47 L D, Glucose 133 H D, Calcium 8.7, Total Bilirubin 0.4, AST 28 D, ALT 23 D, Alkaline Phosphatase 85, Troponin I < 0.01, NT-Pro-B Natriuret Pep 1810 H, Total Protein 7.1 D, Albumin 3.7 D, Globulin 3.4 H, Albumin/Globulin Ratio 1.1 03/04/22 12:43: SARS-CoV-2 (PCR) Not detected, Influenza A Untype (PCR) Not detected, Influenza Type B (PCR) Not detected 03/04/22 12:45: VBG pH 7.24 L, VBG pCO2 54.7 H, VBG pO2 35.4, VBG HCO3 23.0, VBG Total CO2 24.6, VBG O2 Saturation 56.6, VBG Base Excess -4.8 L 03/04/22 13:35: POC Glucose 137 H 03/04/22 14:03: Lactate 1.2 Result diagrams: 03/04/22 12:30 03/04/22 12:30 Orders (Tests/Meds): ED MEDICATIONS Generic Name Dose Route Start Last Admin Trade Name Dinora PRN Reason Stop Dose Admin Azithromycin 500 mg/ Sodium 250 mls @ 250 mls/hr 03/04/22 11:45 03/04/22 12:34 Chloride IV 03/18/22 11:44 250 mls/hr Q24H CHAYA Administration Ceftriaxone Sodium 1 gm/ 50 mls @ 100 mls/hr 03/04/22 11:45 03/04/22 12:00 Sodium Chloride IV 03/18/22 11:44 100 mls/hr Q24H CHAYA Administration Sodium Chloride 2,140 mls @ 1,070 mls/hr 03/04/22 13:56 Sod Chlor 0.9% 1000ml Bag 30 ml/kg infuse over 2 hr (2140 ml) 03/04/22 15:55 IV .Q2H ONE Discontinued Medications Generic Name Dose Route Start Last Admin Trade Name Freq PRN Reason Stop Dose Admin Furosemide 40 mg 03/04/22 13:34 03/04/22 13:49 Furosemide 40mg/4ml Vial IV 03/04/22 13:35 40 mg ONCE ONE Administration ORDERS Category Date Time Status Procalcitonin Stat Lab 03/04/22 14:18 Receive
[2022-03-04 12:41] LABS: Basophils % 0.3 % (0.1-2.0); Hematocrit 36.3 % (37.0-47.0); Hemoglobin 11.1 g/dL (12.2-16.2); Lymphocytes # 0.3 K/mm3 (0.7-4.5); Lymphocytes % 2.8 % (10-50); Mean Corpuscular HGB Conc 30.7 g/dL (31.8-35.4); Mean Corpuscular Hemoglobin 28.4 pg (27.0-31.2); Mean Corpuscular Volume 92.5 fl (81-99); Mean Platelet Volume 7.8 fl (7.4-10.4); Monocytes # 0.1 K/mm3 (0.1-1.0); Monocytes % 0.7 % (1.7-9.3); Neutrophils # 8.9 K/mm3 (1.8-7.8); Neutrophils % 96.1 % (37.0-80.0); Platelet Count 274 K/mm3 (142-424); Red Blood Count 3.92 M/mm3 (4.20-5.40); Red Cell Distribution Width 16.9 % (11.5-17.5); White Blood Count 9.2 K/mm3 (4.8-10.8)
[2022-03-04 12:43] LABS: Chloride 110 mmol/L (98-107)
[2022-03-04 12:44] LABS: Potassium 4.2 mmoL/L (3.5-5.1); Sodium 142 mmol/L (136-145)
[2022-03-04 12:46] LABS: Alanine Aminotransferase 23 U/L (12-78); Albumin Level 3.7 g/dl (3.5-5.0); Albumin/Globulin Ratio 1.1 (1.1-1.8); Alkaline Phosphatase 85 U/L (38-126); Anion Gap 12.2 mEq/L (5-15); Aspartate Amino Transferase 28 U/L (14-36); Bilirubin,Total 0.4 mg/dl (0.2-1.3); Blood Urea Nitrogen 18 mg/dl (7-17); Carbon Dioxide 24 mmol/L (22.0-30.0); Creatinine Clearance Estimated 51 mL/min (50-200); Estimated Glomerular Filt Rate 39 ml/min (>60); GFR (African American) 47 ML/MIN (>60); Globulin 3.4 g/dL (1.3-3.2); Total Protein,Serum 7.1 g/dl (6.3-8.2)
[2022-03-04 12:47] LABS: Calcium 8.7 mg/dl (8.4-10.2); Glucose 133 mg/dl (74-100)
[2022-03-04 12:56] LABS: NT Pro Brain Natriuretic Pep. 1810 pg/mL (0-125)
[2022-03-04 13:00] LABS: Troponin I < 0.01 ng/ml (0.00-0.034)
[2022-03-04 13:02] LABS: VBG PCO2 54.7 mmol/L (35-51); VBG PH 7.24 mmol/L (7.31-7.41)
[2022-03-04 13:03] LABS: VBG Base Excess -4.8 mmol/L (-2.4-2.3); VBG Oxygen Saturation 56.6 % (50-70); VBG PO2 35.4 mmol/L (28-40); VBG Total CO2 24.6 mmol/L (23-27)
[2022-03-04 13:19] LABS: MANUAL DIFFERENTIAL MANUAL DIFFERENTIAL (MANUAL DIFF)
[2022-03-04 13:19] LABS: Coronavirus 19, PCR Not Detected (NotDetected); Influenza A, PCR Not Detected (NotDetected); Influenza B, PCR Not Detected (NotDetected)
--- NOTE | 2022-03-04 13:24 | PC.NURSE ---
RT at the bedside for bipap placement
--- NOTE | 2022-03-04 13:29 | PC.NURSE ---
Resp putting pt on BIPAP
--- NOTE | 2022-03-04 13:36 | PC.NURSE ---
POC Glu done result 137
[2022-03-04 13:42] LABS: POC Glucose,Bedside 137 (70-110)
[2022-03-04 13:47] LABS: Hypochromasia 1+; Lymphocytes % 3 % (10-50); Monocytes % 2 % (2-9); Neutrophils % 95 % (42-76); Total Cells Counted 100
[2022-03-04 13:48] LABS: Platelet Estimate Normal
[2022-03-04 14:18] LABS: Lactic Acid 1.2 mmol/L (0.7-2.1)
--- NOTE | 2022-03-04 14:20 | PC.NURSE ---
Dr Feldman speaking with Dr Valentin
--- NOTE | 2022-03-04 14:23 | PC.NURSE ---
house called for admission
[2022-03-04 14:58] LABS: Procalcitonin 0.563 ng/mL (0.0-2.0)
--- NOTE | 2022-03-04 15:00 | PC.NURSE ---
Rn called report
--- NOTE | 2022-03-04 15:00 | PC.NURSE ---
called report to [facility]
[2022-03-04 15:05] LABS: Troponin I < 0.01 ng/ml (0.00-0.034)
--- NOTE | 2022-03-04 15:13 | PC.NURSE ---
Respiratory at BS to help transport patient to 2nd floor
--- NOTE | 2022-03-04 16:55 | HMH.PHAINT ---
MEDICATION RECONCILIATION COMPLETE USING LIST FROM MOST RECENT MD OFFICE VISIT AND EXTERNAL PHARMACY FILL HISTORY. WE WILL FOLLOW-UP ON SATURDAY TO CONFIRM THE DOSING ON THE SUBOXONE.
--- NOTE | 2022-03-04 16:56 | P.CONPHA_ITS ---
[facility] Pharmacy VTE Monitoring - Patient Demographics Admission date: 03/04/22 Report Date: 03/04/22 Time: 16:56 Allergies/Adverse Reactions: Patient Allergies atorvastatin Adverse Reaction (Intermediate, Verified 02/28/22 09:27) myalgia aspirin [ASPIRIN] Adverse Reaction (Unknown, Verified 02/28/22 09:27) codeine [CODEINE] Adverse Reaction (Unknown, Verified 02/28/22 09:27) propoxyphene [PROPOXYPHENE] Adverse Reaction (Unknown, Verified 02/28/22 09:27) tramadol [TRAMADOL] Adverse Reaction (Unknown, Verified 02/28/22 09:27) Height: 1.57 m Weight: 71.214 kg Patient Problems: Current Active Problems (Last Updated 02/24/19 @ 09:01 by SILVA Cat) COPD exacerbation (Acute) Respiratory failure with hypoxia (Acute) - VTE Risk Labs: VTE Related Lab Results Hgb 11.1 g/dL (12.2-16.2) L 03/04/22 12:30 Hct 36.3 % (37.0-47.0) L 03/04/22 12:30 Plt Count 274 K/mm3 (142-424) 03/04/22 12:30 BUN 18 mg/dl (7-17) H 03/04/22 12:30 Creatinine 1.40 mg/dl (0.52-1.04) H D 03/04/22 12:30 Estimated Creat Clear 51 mL/min (50-200) 03/04/22 12:30 Was VTE Risk Assessment Performed: Yes VTE Score: 6 VTE Risk Level: Moderate Risk Clinical Trial Participant: No - Prophylaxis VTE Prophylaxis Ordered?: Yes Types of VTE Prophylaxis: TEDS Knee High Location of Applied Device: Bilateral Lower Extremeties
[2022-03-05] VITALS (8 sets, daily range): BP systolic 104–123; BP diastolic 54–69; PULSE 70–112; RESP 16–24; TEMP 36.4–37; O2SAT 89–94; BMI 22.0
[2022-03-05 06:09] LABS: Basophils % 0.4 % (0.1-2.0); Eosinophils % 0.4 % (0.1-12.0); Lymphocytes # 0.9 K/mm3 (0.7-4.5); Mean Corpuscular HGB Conc 31.5 g/dL (31.8-35.4); Mean Corpuscular Hemoglobin 28.7 pg (27.0-31.2); Mean Corpuscular Volume 91.1 fl (81-99); Mean Platelet Volume 8.3 fl (7.4-10.4); Monocytes # 0.5 K/mm3 (0.1-1.0); Neutrophils # 6.6 K/mm3 (1.8-7.8); Neutrophils % 82.2 % (37.0-80.0); Platelet Count 296 K/mm3 (142-424); Red Blood Count 3.23 M/mm3 (4.20-5.40); Red Cell Distribution Width 17.2 % (11.5-17.5); White Blood Count 8.1 K/mm3 (4.8-10.8)
[2022-03-05 06:14] LABS: Hematocrit 29.4 % (37.0-47.0); Hemoglobin 9.3 g/dL (12.2-16.2)
[2022-03-05 06:20] LABS: Chloride 110 mmol/L (98-107)
[2022-03-05 06:21] LABS: Sodium 143 mmol/L (136-145)
[2022-03-05 06:23] LABS: Potassium 3.9 mmoL/L (3.5-5.1)
[2022-03-05 06:24] LABS: Anion Gap 8.9 mEq/L (5-15); Blood Urea Nitrogen 19 mg/dl (7-17); Calcium 7.6 mg/dl (8.4-10.2); Carbon Dioxide 28 mmol/L (22.0-30.0); Creatinine Clearance Estimated 47 mL/min (50-200); Estimated Glomerular Filt Rate 47 ml/min (>60); GFR (African American) 56 ML/MIN (>60); Glucose 92 mg/dl (74-100)
--- NOTE | 2022-03-05 06:27 | PC.NURSE ---
At beginning of shift patient was persistent to leave, educated patient on reasons to stay and she agreed as long as she could receive her night time meds. Called MD instructional facilitator and received orders. Patient slept well all night. Remained on 2L NC with O2 sats >90%. Pt has no c/o throughout the night of pain or SOA. Patient has Gale with 250mL in output.
--- NOTE | 2022-03-05 07:00 | XR_ITS ---
PROCEDURE INFORMATION: Exam: XR Chest Exam date and time: 03/05/2022 5:59 AM Age: 56 years old Clinical indication: Shortness of breath and other: Copd; Additional info: Copd SOB TECHNIQUE: Imaging protocol: XR of the chest. Views: 1 view. COMPARISON: CR XR CHEST PORTABLE 03/04/2022 11:45 AM FINDINGS: Lungs: Prominent lung markings/peribronchial thickening without definite evidence of consolidation. Patchy atelectasis and scarring in the lungs bilaterally. Pleural spaces: No evidence of pleural effusion or pneumothorax. Heart/Mediastinum: Heart size is normal, cental pulmonary vascular congestion. Bones/joints: NA IMPRESSION: Chronic cardiopulmonary changes without evidence of an active lung parenchymal lesion.
--- NOTE | 2022-03-05 08:56 | HMH.HP ---
*Admission Date: 03/04/22 *Chief complaint: soa *History of present illness: 56-year-old female presenting to the emergency department with cough, chest congestion, shortness of breath, weakness. Symptoms have been on and off for the last few days. pt states soa has gotten worse yesterday and overnight. She has a cough that is wet and nonproductive. She was evaluated in our emergency department around 5 AM, 6 hours ago. At that time they was recommended she be admitted to the hospital, and she refused Since she got home has been weak and short of breath. Pt states she had a family member called 911 for her to be taken to ed. Pt admitted and treated with IV fluids per sepsis protocol. Chest x-ray shows no acute process despite increasing BNP. Troponins have returned normal x3. EKG shows no acute ST segment changes. Cardiology consulted for evaluation of suspected CHF.Respiratory acidosis noted on a venous ABG with pH of 7.24 with PCO2 of 54.7 PO2 35 HCO3 23. pulmonology for copd [facility] History I have reviewed the patient's past medical history: Yes 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: Reports:: Anxiety, Chronic Obstructive Pulmonary Disease (COPD), Coronary Artery Disease, Depression, Gastroesophageal Reflux Disease(GERD), Hepatitis, Hiatal Hernia, Hyperlipidemia, Hypertension, Lung Disease Denies:: Cancer, Diabetes Mellitus Type 1, Diabetes Mellitus Type 2, Internal Pacemaker, MRSA, Seizures *Have you ever received a pneumonia vaccine?: Yes *Have you received a flu vaccine this season?: Yes Other 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: Reports: Other. Denies: Blood Transfusion Reaction Laterality Cases: Left: Arthroscopy Knee, Lumpectomy, Bilateral: Breast Biopsy, Carpal Tunnel Release Other Surgeries: Yes: Cancer Surgery, Cardiac Catheterization, Cholecystectomy, Colonoscopy, Coronary Stent, , Hernia Repair, Hysterectomy-Total, Hysterectomy-Partial, Other. No: Pacemaker Amputation: No Fractures: No - *Social History Smoking Status: Current every day smoker Tobacco Type: cigarettes # Packs/Day (cigarettes): 1 #Yrs smoked (if former smoker): 45 Alcohol Intake: current Alcohol Intake Frequency:: holidays/special occasions only Substance Use Type: marijuana *Occupational Status:: unemployed Housing: house Household Members: significant other *Travel in the last 8 weeks: None - Psychiatric History Pschychiatric History:: Reports:: Anxiety, Depression Family Hx:: Hyperlipidemia, Hypertension Review of Systems - Review of Systems Review of systems:: pertinent systems reviewed and negative unless documented below - Constitutional Denies body ache(s), Denies chills - Eyes Denies blurry vision - ENT Denies bleeding gums - *Cardiovascular Reports shortness of breath with activity, Denies chest pain at rest - *Respiratory Reports chest congestion, Reports cough, Reports shortness of breath, Reports shortness of breath with activity, Reports wheezing - *Gastrointestinal Denies bloating - *Genitourinary Denies absent period - *Musculoskeletal Denies decreased muscle mass - Integumentary/Breasts Denies sensitivity to light - *Neurologic Reports weakness (Generalized. Weakness when standing and walking), Denies headache(s), Denies numbness - Psychiatric Denies anxiety - Endocrine Denies flushing - Hematologic/Lymphatic Denies enlarged lymph nodes - Allergic/Immunologic Denies lip swelling Meds Home Medications Medication Instructions Recorded Confirmed Type buprenorphine 8 mg-naloxone 2 mg 2 tab SL DAILY tab 03/22/21 03/05/22 History sublingual tablet gabapentin 800 mg tablet 800 mg PO QID #120 tab 12/22/21 03/04/22 Rx risperidone 2 mg tablet 2 mg PO HS tab 02/28/22 03/04/22 History Albuterol Sulfate [Albuterol 2 puff IH Q6H 03/04/22 03/04/22 History Sulfate Hfa] Alendronate Sodium [Fosamax 70mg 70 mg PO WEEKLY 03/04/22 03/04/22 History Tablet] Aspirin [Low Dose Aspirin EC] 81 mg PO DAILY 03/04/22 03/04/22 History Ca
--- NOTE | 2022-03-05 09:41 | HMH.PULMCON ---
*Admission Date: 03/04/22 *Reason for consult:: Acute hypoxic respiratory failure *History of present illness: Ms. Rush is a 56-year-old female current smoker greater than [id number] smoking history, carries a diagnosis COPD on trilogy inhaler therapy along with needing albuterol nebulized nebulized 2-3 times a day presented to the hospital worsening respiratory distress along with cough and increasing productive phlegm along with subjective fevers. [facility] History 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: Reports:: Anxiety, Chronic Obstructive Pulmonary Disease (COPD), Coronary Artery Disease, Depression, Gastroesophageal Reflux Disease(GERD), Hepatitis, Hiatal Hernia, Hyperlipidemia, Hypertension, Lung Disease Denies:: Cancer, Diabetes Mellitus Type 1, Diabetes Mellitus Type 2, Internal Pacemaker, MRSA, Seizures *Have you ever received a pneumonia vaccine?: Yes *Have you received a flu vaccine this season?: Yes Other 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: Reports: Other. Denies: Blood Transfusion Reaction Laterality Cases: Left: Arthroscopy Knee, Lumpectomy, Bilateral: Breast Biopsy, Carpal Tunnel Release Other Surgeries: Yes: Cancer Surgery, Cardiac Catheterization, Cholecystectomy, Colonoscopy, Coronary Stent, , Hernia Repair, Hysterectomy-Total, Hysterectomy-Partial, Other. No: Pacemaker Amputation: No Fractures: No - *Social History Smoking Status: Current every day smoker Tobacco Type: cigarettes # Packs/Day (cigarettes): 1 #Yrs smoked (if former smoker): 45 Alcohol Intake: current Alcohol Intake Frequency:: holidays/special occasions only Substance Use Type: marijuana *Occupational Status:: unemployed Housing: house Household Members: significant other *Travel in the last 8 weeks: None - Psychiatric History Pschychiatric History:: Reports:: Anxiety, Depression Family Hx:: Hyperlipidemia, Hypertension ROS - Cons Reports anorexia, Reports chills, Reports fatigue - Eyes Reports blurry vision - ENT Denies ear discharge - Card Reports shortness of breath, Reports shortness of breath with activity - Resp Respiratory: Reports chest congestion, Reports cough, Reports dyspnea, Reports dyspnea on exertion, Reports excessive phlegm production, Reports cough with sputum production, Denies pain with breathing - GI Gastrointestingal: Denies: abdominal pain - [place] Musculoskeletal: Reports back pain - Psych Denies thoughts of hurting/killing others, Denies thoughts of hurting/killing yourself Meds Home Medications Medication Instructions Recorded Confirmed Type buprenorphine 8 mg-naloxone 2 mg 2 tab SL DAILY tab 03/22/21 03/05/22 History sublingual tablet gabapentin 800 mg tablet 800 mg PO QID #120 tab 12/22/21 03/04/22 Rx risperidone 2 mg tablet 2 mg PO HS tab 02/28/22 03/04/22 History Albuterol Sulfate [Albuterol 2 puff IH Q6H 03/04/22 03/04/22 History Sulfate Hfa] Alendronate Sodium [Fosamax 70mg 70 mg PO WEEKLY 03/04/22 03/04/22 History Tablet] Aspirin [Low Dose Aspirin EC] 81 mg PO DAILY 03/04/22 03/04/22 History Calcium Carbonate/Vitamin D3 [Sm 1 tab PO DAILY 03/04/22 03/04/22 History Calcium 600-Vit D3 400 Tab] Clopidogrel Bisulfate [Plavix] 75 mg PO DAILY 03/04/22 03/04/22 History Docusate Sodium 100 mg PO DAILYP PRN 03/04/22 03/04/22 History Escitalopram Oxalate 20 mg PO DAILY 03/04/22 03/04/22 History Famotidine 40 mg PO DAILY 03/04/22 03/04/22 History Fluticasone/Umeclidin/Vilanter 1 puff IH DAILY 03/04/22 03/04/22 History [Trelegy Ellipta 100-62.5-25] Furosemide [Furosemide 20mg Tab*] 20 mg PO DAILY 03/04/22 03/04/22 History Ibuprofen [Ibuprofen 800mg 800 mg PO BIDP PRN 03/04/22 03/04/22 History Tablet] Isosorbide Mononitrate [Isosorbide 30 mg PO DAILY 03/04/22 03/04/22 History Mononitrate ER] Megestrol Acetate 625 mg PO DAILY 03/04/22 03/04/22 History Omeprazole 40 mg PO DAILY 03/04/22 03/04/22 History Rosuvastatin Calcium 5 mg PO DAILY 03/04/22 03/04/22 History Tizanidine HCl 4 mg PO Q8HP PRN 03/04/2203/04
--- NOTE | 2022-03-05 10:18 | CA_ITS ---
APPROVED REPORT EXAM: Comprehensive 2D, Doppler, and color-flow Echocardiogram Accessioner: Love Jarquin CRT Ht: 5 ft 2 in Wt: 124lbs BSA: 1.56 BP: 104/54 mmHg Indications: COPD, Shortness of Breath, CAD, Hyperlipidemia, Hypertension/HDD, STENT, HEPATITIS, AI 2D Dimensions LVOT 1.97 cm (M/F) 1.5-2.5 LA Volume 23.60 mL LA Volume Index 15.10 mL/m2 (M/F) 16-34 M-Mode Dimensions RVDd 2.25 cm (0.9-2.6) LA Diam 2.98 cm (1.9-4.0) LVDd 3.72 cm (3.5-5.7) Ao Diam 2.95 cm (2.0-3.7) LVDs 2.31 cm (3.5-5.7) IVSd 1.47 cm (0.6-1.1) PWd 0.88 cm (0.6-1.1) EF (Teich) 68.90% FS 37.90% EDV (Teich) 58.90 mL ESV (Teich) 18.30 mL LV Diastology E Decel Time 117.00 (160-240 msec) E/A Ratio 0.90 MED E' 4.60 (< 7 cm/sec) MED A' 8.60 cm/s E'/MED E' Ratio 22.04 (>14) LAT E' 8.10 (<10 cm/sec) LAT A' 10.30 cm/s E/LAT E' Ratio 12.52 (>14) Aortic Valve LVOT Max 172.00 (70-110 cm/s) LVOT VTI 28.62 cm AoV Peak Miko. 143.00 (50-130 cm/s) AO Peak GR. 8.70 mmHg AO Mean GR. 5.10 (<5 mmHg) AO VTI 27.43 (18-25 cm) JALEEL (VTI) 3.18 (2.5-4.5 cm2) Mitral Valve MV A Velocity 112.00 (40-130 cm/s) E/A Ratio 0.90 MV Decel. Time 117.00 (160-240 ms) Tricuspid Valve TR P. Velocity 112.00 cm/s RAP Estimate 10.00 mmHg RVSP 15.10 mmHg Left Ventricle Left atrium is mildly enlarged, left ventricle is normal size, mild concentric left ventricular hypertrophy, estimated ejection fraction 55% with no regional wall motion abnormality, grade 1 diastolic dysfunction seen with tissue Doppler evidence of raise left atrial pressure. Right Ventricle Right atrium and right ventricle mildly enlarged with normal contractility. Aortic Valve Aortic valve is thickened and calcified without aortic stenosis, there is likely severe aortic insufficiency. Mitral Valve Mitral valve leaflets are minimally thickened, there is mild mitral regurgitation. Tricuspid Valve Tricuspid grossly normal, there is mild tricuspid regurgitation, tricuspid regurgitation jet versus inadequate for calculation of the right ventricular systolic pressure. Pulmonic Valve Pulmonic valve is poorly visualized. Great Vessels Aortic root is normal size. Inferior vena cava is poorly visualized. Pericardium No significant pericardial effusion noted. Conclusion 1. Mild biatrial enlargement, normal left ventricular size, mild concentric left ventricular hypertrophy, estimated ejection fraction 55% with no regional wall motion abnormality, grade 1 diastolic dysfunction seen with tissue Doppler evidence of intraventricular pressure. 2. Mildly enlarged right ventricle with normal contractility. 3. Thickened and calcified aortic valve is likely severe aortic insufficiency. 4. Mild mitral and tricuspid regurgitation. 5. No significant pericardial effusion. 6. Inferior vena cava is poorly visualized. Electronically signed by : Vipin Chaparro MD 03/05/2022 20:52:58
--- NOTE | 2022-03-05 11:10 | HMH.CNCARD ---
History of Present Illness Consult date: 03/05/22 Requesting physician: Chuck Pineda Consult reason: shortness of breath Chief complaint: SOA Additional 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:: 1. Mild CAD [facility], 12/2020 shows: The left main artery Normal The left anterior descending artery Is proximally normal with mid vessel 20 to 30% smooth stenosis The circumflex artery Large codominant normal The right coronary artery Codominant normal The KWONG ventriculogram reveals Hyperdynamic 75% The left ventricular end-diastolic pressure 10 mmHg IMPRESSION Mild nonflow limiting coronary disease Hyperdynamic ventricle Normal LVEDP 2. COPD with continued tobacco use 3. Aortic Regurgitation A. Echo, 12/21/2020, EF 55%, moderate AR with mild MR and TR. B. Echocardiogram, [place], [place], 08/2021, severe aortic regurgitation 4. History of IV drug use, clean since 2020 A. Hepatitis C, diagnosed 2021 5. Carotid stenosis A. Carotid artery ultrasound, 07/2021, R ICA 50-69%, LICA 20-49% 6. Renal artery stenosis, status post left renal artery stent 12/2020 with recommendation for aspirin and Plavix for 6 months. 7. Hyperlipidemia 8. Psychiatric illness/psychosis with prior hallucinations that resolved on risperidone History of present illness: 56-year-old white female admitted for worsening shortness of breath over the last 1 to 2 weeks. Patient was seen in the office last week with plans to repeat echocardiogram to evaluate her aortic regurgitation. Patient relates 3 days later her symptoms became significantly worse and she decided to come to the ER on 03/04/2022 for evaluation at which time she was offered hospitalization but declined. She did return 6 hours later due to worsening shortness of breath and has subsequently been admitted. She has been treated with IV fluids per sepsis protocol. Chest x-ray shows no acute process despite increasing BNP. Troponins have returned normal x3. EKG shows no acute ST segment changes. Cardiology consulted for evaluation of suspected CHF. Respiratory acidosis noted on a venous ABG with pH of 7.24 with PCO2 of 54.7 PO2 35 HCO3 23. [facility] History 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: Reports:: Anxiety, Chronic Obstructive Pulmonary Disease (COPD), Coronary Artery Disease, Depression, Gastroesophageal Reflux Disease(GERD), Hepatitis, Hiatal Hernia, Hyperlipidemia, Hypertension, Lung Disease Denies:: Cancer, Diabetes Mellitus Type 1, Diabetes Mellitus Type 2, Internal Pacemaker, MRSA, Seizures *Have you ever received a pneumonia vaccine?: Yes *Have you received a flu vaccine this season?: Yes Other 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: Reports: Other. Denies: Blood Transfusion Reaction Laterality Cases: Left: Arthroscopy Knee, Lumpectomy, Bilateral: Breast Biopsy, Carpal Tunnel Release Other Surgeries: Yes: Cancer Surgery, Cardiac Catheterization, Cholecystectomy, Colonoscopy, Coronary Stent, , Hernia Repair, Hysterectomy-Total, Hysterectomy-Partial, Other. No: Pacemaker Amputation: No Fractures: No - *Social History Smoking Status: Current every day smoker Tobacco Type: cigarettes # Packs/Day (cigarettes): 1 #Yrs smoked (if former smoker): 45 Alcohol Intake: current Alcohol Intake Frequency:: holidays/special occasions only Substance Use Type: marijuana *Occupational Status:: unemployed Housing: house Household Members: significant other *Travel in the last 8 weeks: None - Psychiatric History Pschychiatric History:: Reports:: Anxiety, Depression Family Hx:: Hyperlipidemia, Hypertension Meds Home Medications Medication Instructions Recorded Confirmed Type buprenorphine 8 mg-naloxone 2 mg 2 tab SL DAILY tab 03/22/21 03/05/22 History sublingual tablet gabapentin 800 mg tablet 800 mg PO QID #120 tab 12/22/21 03/04/22 Rx risperidone 2 mg tablet 2 mg PO HS tab 02/28/22 03/04/22 History Albuterol Sulfate [Albuterol 2 puff IH Q6H 03/04/22 03/04/22 History Sulfate Hfa] Alendronate Sod
--- NOTE | 2022-03-05 15:32 | PC.NURSE ---
no changes noted on reassessment. a/o x4. crackles noted to lung brown/wheezing also. brought patient incentive thony today and she has been using every hour. oxygen at 2l per nc in place. ambulates well with standby assist. productive cough now with yellow phlegm. since taking home medication patient is drowsy, but able to wake up with talking. pulses 2+. no edema.
--- NOTE | 2022-03-05 15:55 | PC.NURSE ---
ROUNDED ON PATIENT. NO CONCERNS OR QUESTIONS WITH MEDICATIONS. ENCOURAGED TO VICE ANY CONCERNS OR NEEDS. RINGS OUT NEEDED.
[2022-03-06] VITALS (10 sets, daily range): BP systolic 126–157; BP diastolic 66–85; PULSE 63–100; RESP 17–24; TEMP 36.6–37.3; O2SAT 4–97; BMI 23.0
--- NOTE | 2022-03-06 05:48 | PC.NURSE ---
Patient has been drowsy and lethargic t/o this shift. All PO meds held at 2100 due to patients status. Patient alerts when lightly shaken, but falls back to sleep shortly after. Nothing further.
[2022-03-06 06:18] LABS: Basophils % 0.4 % (0.1-2.0); Eosinophils % 0.1 % (0.1-12.0); Hematocrit 30.1 % (37.0-47.0); Hemoglobin 9.2 g/dL (12.2-16.2); Lymphocytes # 1.2 K/mm3 (0.7-4.5); Mean Corpuscular HGB Conc 30.5 g/dL (31.8-35.4); Mean Corpuscular Hemoglobin 28.8 pg (27.0-31.2); Mean Corpuscular Volume 94.4 fl (81-99); Mean Platelet Volume 7.9 fl (7.4-10.4); Monocytes # 0.6 K/mm3 (0.1-1.0); Monocytes % 7.5 % (1.7-9.3); Neutrophils # 6.5 K/mm3 (1.8-7.8); Neutrophils % 78.1 % (37.0-80.0); Platelet Count 279 K/mm3 (142-424); Red Blood Count 3.19 M/mm3 (4.20-5.40); Red Cell Distribution Width 17.1 % (11.5-17.5); White Blood Count 8.3 K/mm3 (4.8-10.8)
[2022-03-06 06:35] LABS: Chloride 112 mmol/L (98-107); Potassium 4.3 mmoL/L (3.5-5.1); Sodium 143 mmol/L (136-145)
[2022-03-06 06:38] LABS: Anion Gap 8.3 mEq/L (5-15); Carbon Dioxide 27 mmol/L (22.0-30.0)
[2022-03-06 06:39] LABS: Glucose 91 mg/dl (74-100)
[2022-03-06 07:27] LABS: Blood Urea Nitrogen 20 mg/dl (7-17); Creatinine Clearance Estimated 49 mL/min (50-200); Estimated Glomerular Filt Rate 47 ml/min (>60); GFR (African American) 56 ML/MIN (>60)
[2022-03-06 07:46] LABS: Magnesium 2.2 mg/dl (1.6-2.3)
[2022-03-06 08:01] LABS: Erythrocyte Sedimentation Rate 137 mm/hr (0-30)
--- NOTE | 2022-03-06 08:23 | HMH.PNCARD ---
Subjective Date: 03/06/22 Time: 08:23 Interval history: 56-year-old white female in bed in no acute distress. Still unable to lie flat without being significantly short of breath. Echocardiogram from yesterday shows evidence of severe aortic insufficiency. Biatrial enlargement noted with normal LV size and EF. Mild concentric LVH noted. Discussed need for further evaluation with CARMEN later this week. Patient agrees to proceed. Exam Vital signs and Labs for Last 24 Hours: Temp Pulse Resp BP Pulse Ox 97.8 F 97 H 19 126/66 93 L 03/06/22 04:00 03/06/22 05:50 03/06/22 04:00 03/06/22 04:00 03/06/22 05:50 Laboratory Results - last 24 hr 03/06/22 05:39: WBC 8.3, RBC 3.19 L, Hgb 9.2 L, Hct 30.1 L, MCV 94.4, MCH 28.8, MCHC 30.5 L, RDW 17.1, Plt Count 279, MPV 7.9, Neut % (Auto) 78.1, Lymph % (Auto) 14.0, [place] % (Auto) 7.5, Eos % (Auto) 0.1, Baso % (Auto) 0.4, Neut # (Auto) 6.5, Lymph # (Auto) 1.2, [place] # (Auto) 0.6, Eos # (Auto) 0.0, Baso # (Auto) 0.0 03/06/22 05:39: Sodium 143, Potassium 4.3, Chloride 112 H, Carbon Dioxide 27, Anion Gap 8.3, BUN 20 H, Creatinine 1.20 H, Estimated Creat Clear 49, Estimated GFR 47 L, Est GFR ( Amer) 56 L, Glucose 91, Calcium 8.0 L 03/06/22 05:39: ESR 137 H 03/06/22 05:39: Magnesium 2.2 D I & O for Last 24 hours: Intake & Output 03/03/22 03/04/22 03/05/22 03/06/22 11:59 11:59 11:59 11:59 Intake Total 2800 / 2800 480 / 480 Output Total 1500 / 1500 240 / 240 Balance 1300 / 1300 240 / 240 Weight 157 lb 124 lb 4.746 oz 130 lb Microbiology Reports for the Last 24 Hours: Microbiology 03/05/22 13:00 Sputum - Expectorated Sputum Gram Stain - Final 03/05/22 13:00 Sputum - Expectorated Sputum Sputum Culture - Preliminary - Constitutional no acute distress - *Routine Respiratory Exam Present: wheezes Comments: Diffuse inspiratory and expiratory wheezing noted. - *Routine Cardiovascular Exam Present: RRR, murmur - *Routine Extremities Exam Absent: cyanosis, clubbing, edema Progress Note: A&P (1) Anemia Status: Acute (2) COPD exacerbation Status: Acute (3) Respiratory failure with hypoxia Status: Acute (4) CAD (coronary artery disease) Status: Chronic (5) COPD (chronic obstructive pulmonary disease) Status: Chronic (6) 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 Acute respiratory failure with hypoxia, possibly acute congestive heart failure due to severe aortic insufficiency. Will discontinue bisoprolol and start Norvasc along with IV Lasix. Plan to proceed with transesophageal echocardiogram later this week for further evaluation of the aortic valve to look for possible vegetation from IV drug use history. Patient recently had cardiac catheterization in early 2020 with only mild disease of the LAD with the remaining vessels all normal. 2. Anemia, hemoglobin 9.2 3. COPD, per Dr. Orourke 4. CKD, stage II 5. Elevated sed rate but patient is on steroid therapy.
--- NOTE | 2022-03-06 09:23 | HMH.PULMPN ---
Internal Medicine - PN: Subj *Date: 03/06/22 *Time: 09:56 Interval history: Patient admits worsening respiratory distress. Exam - Constitutional Constitutional:: Absent: no acute distress, comfortable - HENMT Exam HENMT: Present: normocephalic, atraumatic - Eye Exam Eyes:: Present: normal appearance both eyes and related structures - Neck Exam Neck:: Present: normal visual inspection - Respiratory Exam Respiratory:: Present: able to speak in complete sentences, respiratory distress, wheezing. Absent: accessory muscle use - Cardiovascular Exam Cardiac:: Present: S1, S2 - GI Exam GI:: Present: soft - Skin Exam Skin: Present: warm, no rash - Neurological Exam Neurological: Present: alert, awake, normal cognition - Extremities Exam Extremities: Present: no cyanosis, no clubbing, no edema Assessment and Plan (1) Anemia Status: Acute Qualifiers: Anemia type: unspecified type Qualified Code(s): D64.9 - Anemia, unspecified Category: Medical Code(s): D64.9 - Anemia, unspecified (2) COPD exacerbation Status: Acute Category: Medical Code(s): J44.1 - Chronic obstructive pulmonary disease with (acute) exacerbation (3) Respiratory failure with hypoxia Status: Acute Qualifiers: Chronicity: acute Qualified Code(s): J96.01 - Acute respiratory failure with hypoxia Category: Medical Code(s): J96.91 - Respiratory failure, unspecified with hypoxia (4) CAD (coronary artery disease) Status: Chronic Qualifiers: Coronary Disease-Associated Artery/Lesion type: [place] artery [place] vs. transplanted heart: [place] heart Associated angina: without angina Qualified Code(s): I25.10 - Atherosclerotic heart disease of [place] coronary artery without angina pectoris Category: Medical Code(s): I25.10 - Atherosclerotic heart disease of [place] coronary artery without angina pectoris (5) COPD (chronic obstructive pulmonary disease) Status: Chronic Qualifiers: COPD type: unspecified COPD Qualified Code(s): J44.9 - Chronic obstructive pulmonary disease, unspecified Category: Medical Code(s): J44.9 - Chronic obstructive pulmonary disease, unspecified (6) History of intravenous drug use in remission Status: Chronic Category: Social Hx Code(s): Z87.898 - Personal history of other specified conditions (7) Severe aortic regurgitation Status: Acute Category: Medical Code(s): I35.1 - Nonrheumatic aortic (valve) insufficiency - Assessment and plan all Dx Assessment and Plan for all problems:: # Acute hypoxic hypercarbic respiratory failure: Ms. Rush is a 56-year-old female current smoker greater than [id number] smoking history, carries a diagnosis COPD on trilogy inhaler therapy along with needing albuterol nebulized nebulized 2-3 times a day presented to the hospital worsening respiratory distress along with cough and increasing productive phlegm along with subjective fevers. She does not use any oxygen at home. Blood gas on admission showed respirate acidosis with a pH of 7.24 PCO2 54.7 PO2 35.4 on a venous blood gas. CXR on admission did not show any evidence of dense consolidation or significant airspace disease. Afebrile. No evidence of leukocytosis on admission. COVID-19 and flu PCR negative. Patient was initiated ceftriaxone and azithromycin along with methylprednisolone every 8 hours. Interval update: Worsening respiratory distress with increasing oxygen, current on 4 L saturating 91%. Auscultation diffuse expiratory wheezing slightly worsened from yesterday. She continued to receive ceftriaxone azithromycin along with methylprednisolone. Sputum culture from yesterday reported to have no organisms seen. We will repeat the chest x-ray increase DuoNeb frequency to every 4 hours. We will closely monitor. Plan: -Repeat sputum cultures and chest x-ray. -Flutter valve -Continue DuoNebs every 4 hours along with budesonide every 12 schedule. -Lower extr
--- NOTE | 2022-03-06 09:55 | XR_ITS ---
FINAL REPORT CLINICAL HISTORY: SOB COMPARISON: 03/05/2022 FINDINGS: SINGLE VIEW CHEST The heart is normal in size. The mediastinum is unremarkable. There are mild bibasilar opacities, favor atelectasis or scar. There is no pneumothorax. IMPRESSION: Bibasilar opacities, favor atelectasis or scar. Reviewed, Interpreted and Dictated by Edward Espinoza III, MD Transcribed by Silvia Alford Authenticated by Edward Espinoza III, MD on 03/06/2022 11:29:31 AM [facility]
--- NOTE | 2022-03-06 10:01 | CA_ITS ---
FINAL REPORT CLINICAL HISTORY: Hypoxia FINDINGS: Color Doppler, duplex Doppler and compression sonography of the bilateral lower extremities was performed. There is no evidence of deep venous thrombosis from the level of the groin to the calf. The deep veins are patent and compressible. IMPRESSION: No evidence of deep venous thrombosis bilateral lower extremities. Reviewed, Interpreted and Dictated by Edward Espinoza III, MD Transcribed by Lisa Bryson Authenticated by Edward Espinoza III, MD on 03/06/2022 01:21:30 PM [facility]
--- NOTE | 2022-03-06 17:04 | HMH.ACPN2 ---
Internal Medicine - PN: Subj *Date: 03/06/22 *Time: 19:42 Interval history: 56-year-old female patient resting quietly in bed with eyes open, she still reports some shortness of breath when not sitting up. She denies any chest pain, current oxygenation 93% on 2 L Exam Vital signs and Labs for Last 24 Hours: Temp Pulse Resp BP Pulse Ox 97.8 F 72 24 152/71 H 91 L 03/06/22 08:00 03/06/22 10:14 03/06/22 08:00 03/06/22 08:00 03/06/22 10:14 Laboratory Results - last 24 hr 03/06/22 05:39: WBC 8.3, RBC 3.19 L, Hgb 9.2 L, Hct 30.1 L, MCV 94.4, MCH 28.8, MCHC 30.5 L, RDW 17.1, Plt Count 279, MPV 7.9, Neut % (Auto) 78.1, Lymph % (Auto) 14.0, [place] % (Auto) 7.5, Eos % (Auto) 0.1, Baso % (Auto) 0.4, Neut # (Auto) 6.5, Lymph # (Auto) 1.2, [place] # (Auto) 0.6, Eos # (Auto) 0.0, Baso # (Auto) 0.0 03/06/22 05:39: Sodium 143, Potassium 4.3, Chloride 112 H, Carbon Dioxide 27, Anion Gap 8.3, BUN 20 H, Creatinine 1.20 H, Estimated Creat Clear 49, Estimated GFR 47 L, Est GFR ( Amer) 56 L, Glucose 91, Calcium 8.0 L 03/06/22 05:39: ESR 137 H 03/06/22 05:39: Magnesium 2.2 D I & O for Last 24 hours: Intake & Output 03/03/22 03/04/22 03/05/22 03/06/22 23:59 23:59 23:59 23:59 Intake Total 2440 / 2440 840 / 840 600 / 600 Output Total 1000 / 1000 740 / 740 Balance 1440 / 1440 100 / 100 600 / 600 Weight 124 lb 8 oz 124 lb 4.746 oz 130 lb Microbiology Reports for the Last 24 Hours: Microbiology 03/04/22 14:03 Blood Blood Culture - Preliminary NO GROWTH AFTER 48 HOURS 03/04/22 14:03 Blood Blood Culture - Preliminary NO GROWTH AFTER 48 HOURS 03/05/22 13:00 Sputum - Expectorated Sputum Gram Stain - Final 03/05/22 13:00 Sputum - Expectorated Sputum Sputum Culture - Preliminary - Constitutional no acute distress - *Routine HEENT Exam Head: Present: normocephalic Eye: Present: EOMI ENT: Present: mucous membranes moist - *Routine Neck Exam Present: trachea midline. Absent: tracheal deviation - *Routine Respiratory Exam Absent: accessory muscle use, wheezes - *Routine Cardiovascular Exam Present: RRR, murmur - *Routine Abdominal Exam Present: soft, normoactive bowel sounds. Absent: tenderness, distended - *Routine Extremities Exam Present: full ROM, pulses intact. Absent: cyanosis, clubbing, edema - *Routine Skin Exam Present: intact, erythema, dry. Absent: cyanosis - *Routine Neurological Exam Present: alert, oriented X3. Absent: motor deficit - Routine Psychiatric Exam Present: normal affect, normal thought process. Absent: visual hallucinations Assessment and Plan (1) Anemia Status: Acute Qualifiers: Anemia type: unspecified type Qualified Code(s): D64.9 - Anemia, unspecified Category: Medical Code(s): D64.9 - Anemia, unspecified (2) COPD exacerbation Status: Acute Category: Medical Code(s): J44.1 - Chronic obstructive pulmonary disease with (acute) exacerbation (3) Respiratory failure with hypoxia Status: Acute Qualifiers: Chronicity: acute Qualified Code(s): J96.01 - Acute respiratory failure with hypoxia Category: Medical Code(s): J96.91 - Respiratory failure, unspecified with hypoxia (4) CAD (coronary artery disease) Status: Chronic Qualifiers: Coronary Disease-Associated Artery/Lesion type: [place] artery [place] vs. transplanted heart: [place] heart Associated angina: without angina Qualified Code(s): I25.10 - Atherosclerotic heart disease of [place] coronary artery without angina pectoris Category: Medical Code(s): I25.10 - Atherosclerotic heart disease of [place] coronary artery without angina pectoris (5) COPD (chronic obstructive pulmonary disease) Status: Chronic Qualifiers: COPD type: unspecified COPD Qualified Code(s): J44.9 - Chronic obstructive pulmonary disease, unspecified Category: Medical Code(s): J44.9 - Chronic obstructiv
[2022-03-07] VITALS (10 sets, daily range): BP systolic 143–185; BP diastolic 74–94; PULSE 64–125; RESP 18–22; TEMP 36.7–37; O2SAT 91–95; BMI 22.2
[2022-03-07 06:18] LABS: Basophils % 0.2 % (0.1-2.0); Chloride 106 mmol/L (98-107); Hematocrit 32.2 % (37.0-47.0); Lymphocytes # 0.6 K/mm3 (0.7-4.5); Lymphocytes % 7.5 % (10-50); Mean Corpuscular HGB Conc 30.9 g/dL (31.8-35.4); Mean Corpuscular Hemoglobin 28.5 pg (27.0-31.2); Mean Corpuscular Volume 92.3 fl (81-99); Mean Platelet Volume 7.9 fl (7.4-10.4); Monocytes # 0.4 K/mm3 (0.1-1.0); Monocytes % 4.7 % (1.7-9.3); Neutrophils # 6.7 K/mm3 (1.8-7.8); Neutrophils % 87.6 % (37.0-80.0); Platelet Count 261 K/mm3 (142-424); Red Blood Count 3.49 M/mm3 (4.20-5.40); Red Cell Distribution Width 16.9 % (11.5-17.5); Sodium 140 mmol/L (136-145); White Blood Count 7.6 K/mm3 (4.8-10.8)
[2022-03-07 06:19] LABS: Potassium 4.3 mmoL/L (3.5-5.1)
[2022-03-07 06:21] LABS: Blood Urea Nitrogen 25 mg/dl (7-17); Creatinine Clearance Estimated 44 mL/min (50-200); Estimated Glomerular Filt Rate 43 ml/min (>60); GFR (African American) 51 ML/MIN (>60); MANUAL DIFFERENTIAL MANUAL DIFFERENTIAL (MANUAL DIFF)
[2022-03-07 06:22] LABS: Anion Gap 9.3 mEq/L (5-15); Calcium 8.2 mg/dl (8.4-10.2); Carbon Dioxide 29 mmol/L (22.0-30.0); Glucose 127 mg/dl (74-100)
[2022-03-07 08:15] LABS: Lymphocytes % 9 % (10-50); Monocytes % 2 % (2-9); Neutrophils % 89 % (42-76); Platelet Estimate Normal; RBC Morphology Normal; Total Cells Counted 100
--- NOTE | 2022-03-07 08:50 | HMH.PULMPN ---
Internal Medicine - PN: Subj *Date: 03/07/22 *Time: 11:02 Interval history: No acute respiratory events overnight. Patient denies any improvement in her symptoms. Exam - Constitutional Constitutional:: Present: no acute distress, comfortable - HENMT Exam HENMT: Present: normocephalic, atraumatic - Eye Exam Eyes:: Present: normal appearance both eyes and related structures - Neck Exam Neck:: Present: normal visual inspection - Respiratory Exam Respiratory:: Present: able to speak in complete sentences, no respiratory distress, rhonchi, wheezing - Cardiovascular Exam Cardiac:: Present: S1, S2 - GI Exam GI:: Present: soft, no hepatosplenomegaly - Skin Exam Skin: Present: warm, no rash - Neurological Exam Neurological: Present: alert, awake, normal cognition - Extremities Exam Extremities: Present: no cyanosis, no clubbing, no edema - Psychiatric Exam Psychiatric: Present: normal affect Assessment and Plan (1) Anemia Status: Acute Qualifiers: Anemia type: unspecified type Qualified Code(s): D64.9 - Anemia, unspecified Category: Medical Code(s): D64.9 - Anemia, unspecified (2) COPD exacerbation Status: Acute Category: Medical Code(s): J44.1 - Chronic obstructive pulmonary disease with (acute) exacerbation (3) Respiratory failure with hypoxia Status: Acute Qualifiers: Chronicity: acute Qualified Code(s): J96.01 - Acute respiratory failure with hypoxia Category: Medical Code(s): J96.91 - Respiratory failure, unspecified with hypoxia (4) CAD (coronary artery disease) Status: Chronic Qualifiers: Coronary Disease-Associated Artery/Lesion type: [place] artery [place] vs. 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 Rush is a 56-year-old female current smoker greater than [id number] smoking history, carries a diagnosis COPD on trilogy inhaler therapy along with needing albuterol nebulized nebulized 2-3 times a day presented to the hospital worsening respiratory distress along with cough and increasing productive phlegm along with subjective fevers. She does not use any oxygen at home. Blood gas on admission showed respirate acidosis with a pH of 7.24 PCO2 54.7 PO2 35.4 on a venous blood gas. CXR on admission did not show any evidence of dense consolidation or significant airspace disease. Afebrile. No evidence of leukocytosis on admission. COVID-19 and flu PCR negative. Patient was initiated ceftriaxone and azithromycin along with methylprednisolone every 8 hours. Interval update: Repeat x-ray no acute worsening pulmonary infiltrates. Lower extremity Doppler negative for DVT. Patient remained on 4 L nasal cannula. Stable leukocytosis. Patient noted to have copious amounts of creamy mucus production concerning for chyloptysis / PAP. Denies any recent chest trauma. Admits shoulder injury. We will follow with the lab to order sputum lipid panel and will consider further need for bronchoscopy after evaluating her CT Pl
--- NOTE | 2022-03-07 08:52 | P.PN_ITS ---
Subjective Date: 03/07/22 Time: 08:52 Interval history: 56-year-old white female sitting up in bed in no acute distress but still has significant audible wheezing despite subjective feeling of improvement in her shortness of breath. Discussed plans for transesophageal echocardiogram on Saturday of this week to further evaluate her aortic regurgitation. She is agreeable to proceed. Exam Vital signs and Labs for Last 24 Hours: Temp Pulse Resp BP Pulse Ox 98.5 F 98 H 20 155/89 H 91 L 03/07/22 07:46 03/07/22 07:46 03/07/22 07:46 03/07/22 07:46 03/07/22 07:46 Laboratory Results - last 24 hr 03/07/22 05:38: WBC 7.6, RBC 3.49 L, Hgb 10.0 L, Hct 32.2 L, MCV 92.3, MCH 28.5, MCHC 30.9 L, RDW 16.9, Plt Count 261, MPV 7.9, Neut % (Auto) 87.6 H, Lymph % (Auto) 7.5 L, [place] % (Auto) 4.7, Eos % (Auto) 0.0 L, Baso % (Auto) 0.2, Neut # (Auto) 6.7, Lymph # (Auto) 0.6 L, [place] # (Auto) 0.4, Eos # (Auto) 0.0, Baso # (Auto) 0.0, Total Counted 100, Neutrophils % (Manual) 89 H, Lymphocytes % (Manual) 9 L, Monocytes % (Manual) 2, Platelet Estimate Normal, RBC Morphology Normal 03/07/22 05:38: Sodium 140, Potassium 4.3, Chloride 106, Carbon Dioxide 29, Anion Gap 9.3, BUN 25 H, Creatinine 1.30 H, Estimated Creat Clear 44, Estimated GFR 43 L, Est GFR ( Amer) 51 L, Glucose 127 H D, Calcium 8.2 L I & O for Last 24 hours: Intake & Output 03/04/22 03/05/22 03/06/22 03/07/22 11:59 11:59 11:59 11:59 Intake Total 2800 / 2800 720 / 720 1320 / 1320 Output Total 1500 / 1500 240 / 240 Balance 1300 / 1300 480 / 480 1320 / 1320 Weight 157 lb 124 lb 4.746 oz 130 lb 125 lb 11.2 oz Microbiology Reports for the Last 24 Hours: Microbiology 03/06/22 17:30 Sputum - Expectorated Sputum Gram Stain - Final 03/06/22 17:30 Sputum - Expectorated Sputum Sputum Culture - Preliminary Gram Negative Rods 03/04/22 14:03 Blood Blood Culture - Preliminary NO GROWTH AFTER 48 HOURS 03/04/22 14:03 Blood Blood Culture - Preliminary NO GROWTH AFTER 48 HOURS 03/05/22 13:00 Sputum - Expectorated Sputum Gram Stain - Final 03/05/22 13:00 Sputum - Expectorated Sputum Sputum Culture - Preliminary - Constitutional no acute distress - *Routine Respiratory Exam Present: rhonchi, wheezes - *Routine Cardiovascular Exam Present: RRR, murmur - *Routine Neurological Exam Present: alert, oriented X3 Progress Note: A&P (1) Anemia Status: Acute (2) COPD exacerbation Status: Acute (3) Respiratory failure with hypoxia Status: Acute (4) CAD (coronary artery disease) Status: Chronic (5) COPD (chronic obstructive pulmonary disease) Status: Chronic (6) 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 Acute respiratory failure with hypoxia, possibly acute congestive heart failure due to severe aortic insufficiency. Continue IV lasix and renal monitoring. 2. Anemia, hemoglobin 9-10, stable 3. COPD, per Dr. Orourke 4. CKD, stage II 5. Elevated sed rate but patient is on steroid therapy 6. Aortic insufficiency, severe on TTE. Plan [facility] on 03-09-22. If confirmed severe, then will need transfer to for further treatment. 7. Mild CAD by cath early 2020
--- NOTE | 2022-03-07 09:48 | CT_ITS ---
FINAL REPORT TECHNIQUE: Axial images were obtained from the lung apex to the mid abdomen by computed tomography. Coronal reformatted images were obtained. This study was performed with techniques to keep radiation doses as low as reasonably achievable, (ALARA). Individualized dose reduction techniques using automated exposure control or adjustment of mA and/or kV according to the patient''s size were employed. CLINICAL HISTORY: Hypoxia COMPARISON: June 21, 2020 FINDINGS: There is no axillary adenopathy. There is no hilar or mediastinal adenopathy. Heart size is normal. There is no pericardial or pleural effusion. Limited images of the upper abdomen demonstrate postoperative changes from cholecystectomy. There are new patchy bilateral ground-glass opacities which are greater in the upper lobes. There is presumed atelectasis in the lung bases. There are numerous new micronodular bilateral opacities consistent with an infectious process. This may represent mycobacterial/fungal diseases or other inflammatory process. There is bronchial wall thickening consistent with bronchitis. No dominant mass is identified. IMPRESSION: Numerous new micronodular bilateral opacities consistent with an infectious process. This may represent mycobacterial/fungal diseases or other inflammatory process. New patchy bilateral ground-glass opacities which are greater in the upper lobes. Bronchial wall thickening consistent with bronchitis. Reviewed, Interpreted and Dictated by Edward Espinoza III, MD Transcribed by Lisa Bryson Authenticated by Edward Espinoza III, MD on 03/07/2022 11:48:34 AM [facility]
--- NOTE | 2022-03-07 10:08 | HMH.ACPN2 ---
Internal Medicine - PN: Subj *Date: 03/07/22 *Time: 08:25 Interval history: pt sitting up on side of bed, states she is feeling a little better Exam Vital signs and Labs for Last 24 Hours: Temp Pulse Resp BP Pulse Ox 98.5 F 98 H 20 155/89 H 91 L 03/07/22 07:46 03/07/22 07:46 03/07/22 07:46 03/07/22 07:46 03/07/22 07:46 Laboratory Results - last 24 hr 03/07/22 05:38: WBC 7.6, RBC 3.49 L, Hgb 10.0 L, Hct 32.2 L, MCV 92.3, MCH 28.5, MCHC 30.9 L, RDW 16.9, Plt Count 261, MPV 7.9, Neut % (Auto) 87.6 H, Lymph % (Auto) 7.5 L, [place] % (Auto) 4.7, Eos % (Auto) 0.0 L, Baso % (Auto) 0.2, Neut # (Auto) 6.7, Lymph # (Auto) 0.6 L, [place] # (Auto) 0.4, Eos # (Auto) 0.0, Baso # (Auto) 0.0, Total Counted 100, Neutrophils % (Manual) 89 H, Lymphocytes % (Manual) 9 L, Monocytes % (Manual) 2, Platelet Estimate Normal, RBC Morphology Normal 03/07/22 05:38: Sodium 140, Potassium 4.3, Chloride 106, Carbon Dioxide 29, Anion Gap 9.3, BUN 25 H, Creatinine 1.30 H, Estimated Creat Clear 44, Estimated GFR 43 L, Est GFR ( Amer) 51 L, Glucose 127 H D, Calcium 8.2 L I & O for Last 24 hours: Intake & Output 03/04/22 03/05/22 03/06/22 03/07/22 11:59 11:59 11:59 11:59 Intake Total 2800 / 2800 720 / 720 1320 / 1320 Output Total 1500 / 1500 240 / 240 Balance 1300 / 1300 480 / 480 1320 / 1320 Weight 157 lb 124 lb 4.746 oz 130 lb 125 lb 11.2 oz Microbiology Reports for the Last 24 Hours: Microbiology 03/05/22 13:00 Sputum - Expectorated Sputum Gram Stain - Final 03/05/22 13:00 Sputum - Expectorated Sputum Sputum Culture - Preliminary Gram Negative Rods Gram Negative Rods#2 03/06/22 17:30 Sputum - Expectorated Sputum Gram Stain - Final 03/06/22 17:30 Sputum - Expectorated Sputum Sputum Culture - Preliminary Gram Negative Rods 03/04/22 14:03 Blood Blood Culture - Preliminary NO GROWTH AFTER 48 HOURS 03/04/22 14:03 Blood Blood Culture - Preliminary NO GROWTH AFTER 48 HOURS - Constitutional no acute distress - *Routine HEENT Exam Head: Present: normocephalic Eye: Present: PERRL ENT: Present: mucous membranes moist - *Routine Neck Exam Present: supple. Absent: lymphadenopathy - *Routine Respiratory Exam Present: wheezes, diminished air movement - *Routine Cardiovascular Exam Present: RRR, murmur - *Routine Abdominal Exam Present: soft, normoactive bowel sounds. Absent: tenderness - *Routine Extremities Exam Absent: cyanosis, clubbing, edema - *Routine Skin Exam Present: warm. Absent: rash - *Routine Neurological Exam Present: alert, oriented X3 Assessment and Plan (1) Anemia Status: Acute Qualifiers: Anemia type: unspecified type Qualified Code(s): D64.9 - Anemia, unspecified Category: Medical Code(s): D64.9 - Anemia, unspecified (2) COPD exacerbation Status: Acute Category: Medical Code(s): J44.1 - Chronic obstructive pulmonary disease with (acute) exacerbation (3) Respiratory failure with hypoxia Status: Acute Qualifiers: Chronicity: acute Qualified Code(s): J96.01 - Acute respiratory failure with hypoxia Category: Medical Code(s): J96.91 - Respiratory failure, unspecified with hypoxia (4) CAD (coronary artery disease) Status: Chronic Qualifiers: Coronary Disease-Associated Artery/Lesion type: [place] artery [place] vs. transplanted heart: [place] heart Associated angina: without angina Qualified Code(s): I25.10 - Atherosclerotic heart disease of [place] coronary artery without angina pectoris Category: Medical Code(s): I25.10 - Atherosclerotic heart disease of [place] coronary artery without angina pectoris (5) COPD (chronic obstructive pulmonary disease) Status: Chronic Qualifiers: COPD type: unspecified COPD Qualified Code(s): J44.9 - Chronic obstructive pulmonary dise
--- NOTE | 2022-03-07 15:26 | PC.NURSE ---
Spoke with Marla in Dr. Orourke's office and she stated Dr. Orourke wasnt planning to do bronchoscopy today.
[2022-03-08] VITALS (9 sets, daily range): BP systolic 122–174; BP diastolic 70–90; PULSE 86–140; RESP 22–26; TEMP 36.5–36.8; O2SAT 90–97; BMI 22.2
[2022-03-08 06:30] LABS: Chloride 103 mmol/L (98-107)
[2022-03-08 06:31] LABS: Potassium 3.8 mmoL/L (3.5-5.1); Sodium 142 mmol/L (136-145)
[2022-03-08 06:33] LABS: Blood Urea Nitrogen 28 mg/dl (7-17); Creatinine Clearance Estimated 48 mL/min (50-200); Estimated Glomerular Filt Rate 47 ml/min (>60); GFR (African American) 56 ML/MIN (>60)
[2022-03-08 06:34] LABS: Anion Gap 9.8 mEq/L (5-15); Calcium 8.6 mg/dl (8.4-10.2); Carbon Dioxide 33 mmol/L (22.0-30.0); Glucose 95 mg/dl (74-100)
[2022-03-08 06:36] LABS: Basophils # 0.1 K/mm3 (0-0.2); Basophils % 0.7 % (0.1-2.0); Eosinophils % 0.5 % (0.1-12.0); Hematocrit 35.1 % (37.0-47.0); Hemoglobin 10.9 g/dL (12.2-16.2); Lymphocytes # 1.7 K/mm3 (0.7-4.5); Lymphocytes % 20.5 % (10-50); Mean Corpuscular HGB Conc 31.1 g/dL (31.8-35.4); Mean Corpuscular Hemoglobin 28.4 pg (27.0-31.2); Mean Corpuscular Volume 91.1 fl (81-99); Mean Platelet Volume 8.2 fl (7.4-10.4); Monocytes # 0.5 K/mm3 (0.1-1.0); Monocytes % 6.1 % (1.7-9.3); Neutrophils # 6.1 K/mm3 (1.8-7.8); Neutrophils % 72.2 % (37.0-80.0); Platelet Count 299 K/mm3 (142-424); Red Blood Count 3.85 M/mm3 (4.20-5.40); Red Cell Distribution Width 16.6 % (11.5-17.5); White Blood Count 8.4 K/mm3 (4.8-10.8)
--- NOTE | 2022-03-08 07:14 | PC.NURSE ---
No acute changes. Pt tolerating 4 L nc well with sats >90%. No complaints voiced to staff. Call light within reach.
--- NOTE | 2022-03-08 09:10 | P.PN_ITS ---
Subjective Date: 03/08/22 Time: 09:10 Exam Vital signs and Labs for Last 24 Hours: Temp Pulse Resp BP Pulse Ox 98.1 F 136 H 24 122/90 90 L 03/08/22 07:53 03/08/22 07:53 03/08/22 07:53 03/08/22 07:53 03/08/22 07:53 Laboratory Results - last 24 hr 03/08/22 05:35: WBC 8.4, RBC 3.85 L, Hgb 10.9 L, Hct 35.1 L, MCV 91.1, MCH 28.4, MCHC 31.1 L, RDW 16.6, Plt Count 299, MPV 8.2, Neut % (Auto) 72.2, Lymph % (Auto) 20.5, [place] % (Auto) 6.1, Eos % (Auto) 0.5, Baso % (Auto) 0.7, Neut # (Auto) 6.1, Lymph # (Auto) 1.7, [place] # (Auto) 0.5, Eos # (Auto) 0.0, Baso # (Auto) 0.1 03/08/22 05:35: Sodium 142, Potassium 3.8, Chloride 103, Carbon Dioxide 33 H, Anion Gap 9.8, BUN 28 H, Creatinine 1.20 H, Estimated Creat Clear 48, Estimated GFR 47 L, Est GFR ( Amer) 56 L, Glucose 95 D, Calcium 8.6 I & O for Last 24 hours: Intake & Output 03/05/22 03/06/22 03/07/22 03/08/22 11:59 11:59 11:59 11:59 Intake Total 2800 / 2800 720 / 720 1320 / 1320 360 / 360 Output Total 1500 / 1500 240 / 240 Balance 1300 / 1300 480 / 480 1320 / 1320 360 / 360 Weight 124 lb 4.746 oz 130 lb 125 lb 11.2 oz 125 lb 11.215 oz Microbiology Reports for the Last 24 Hours: Microbiology 03/05/22 13:00 Sputum - Expectorated Sputum Gram Stain - Final 03/05/22 13:00 Sputum - Expectorated Sputum Sputum Culture - Preliminary Gram Negative Rods Gram Negative Rods#2 03/06/22 17:30 Sputum - Expectorated Sputum Gram Stain - Final 03/06/22 17:30 Sputum - Expectorated Sputum Sputum Culture - Preliminary Gram Negative Rods - Constitutional no acute distress - *Routine HEENT Exam Head: Present: normocephalic Eye: Present: EOMI, PERRL ENT: Present: mucous membranes moist - *Routine Neck Exam Present: supple. Absent: lymphadenopathy - *Routine Respiratory Exam Present: rhonchi, wheezes - *Routine Cardiovascular Exam Present: RRR - *Routine Abdominal Exam Present: soft, normoactive bowel sounds. Absent: tenderness - *Routine Extremities Exam Absent: cyanosis, clubbing, edema - *Routine Skin Exam Present: warm. Absent: rash - *Routine Neurological Exam Present: alert, oriented X3 Progress Note: A&P (1) Anemia Status: Acute (2) COPD exacerbation Status: Acute (3) Respiratory failure with hypoxia Status: Acute (4) CAD (coronary artery disease) Status: Chronic (5) COPD (chronic obstructive pulmonary disease) Status: Chronic (6) 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 Acute respiratory failure with hypoxia, possibly acute congestive heart failure due to severe aortic insufficiency. Continue IV lasix and renal monitoring. 2. Anemia, hemoglobin 10-11, stable 3. COPD, per Dr. Orourke. Possible bronchoscopy today. 4. CKD, stage II, Cr 1.2 and GFR 47 5. Elevated sed rate but patient is on steroid therapy 6. Aortic insufficiency, severe on TTE. Plan [facility] on 03-09-22. If confirmed severe, then will need transfer to for further treatment. 7. Mild CAD by cath early 2020 8. GERD, on PPI.
--- NOTE | 2022-03-08 09:13 | PC.NURSE ---
This RN made Kimberli Ramírez APRN aware of pt's concern for suboxone order upon d/c, if it happens to be over the weekend. Pt states she goes weekly to get med and hasnt been able to this week r/t being in the hospital. Pt has also c/o of heartburn this am, Kimberli Ramírez APRN stated we could increase protonix to BID. Awaiting for Dr. Orourke to round this am as well.
--- NOTE | 2022-03-08 09:29 | HMH.PULMPN ---
Internal Medicine - PN: Subj *Date: 03/08/22 *Time: 10:59 Interval history: Patient denies any new respiratory complaints. No acute respiratory events overnight. Exam - Constitutional Constitutional:: Present: no acute distress, comfortable - HENMT Exam HENMT: Present: normocephalic, atraumatic - Eye Exam Eyes:: Present: normal appearance both eyes and related structures - Neck Exam Neck:: Present: normal visual inspection - Respiratory Exam Respiratory:: Present: able to speak in complete sentences, respiratory distress, rhonchi - Cardiovascular Exam Cardiac:: Present: S1, S2 - GI Exam GI:: Present: soft - Skin Exam Skin: Present: warm, no rash - Neurological Exam Neurological: Present: alert, awake, normal cognition - Extremities Exam Extremities: Present: no cyanosis, no clubbing, no edema Assessment and Plan (1) Anemia Status: Acute Qualifiers: Anemia type: unspecified type Qualified Code(s): D64.9 - Anemia, unspecified Category: Medical Code(s): D64.9 - Anemia, unspecified (2) COPD exacerbation Status: Acute Category: Medical Code(s): J44.1 - Chronic obstructive pulmonary disease with (acute) exacerbation (3) Respiratory failure with hypoxia Status: Acute Qualifiers: Chronicity: acute Qualified Code(s): J96.01 - Acute respiratory failure with hypoxia Category: Medical Code(s): J96.91 - Respiratory failure, unspecified with hypoxia (4) CAD (coronary artery disease) Status: Chronic Qualifiers: Coronary Disease-Associated Artery/Lesion type: [place] artery [place] vs. transplanted heart: [place] heart Associated angina: without angina Qualified Code(s): I25.10 - Atherosclerotic heart disease of [place] coronary artery without angina pectoris Category: Medical Code(s): I25.10 - Atherosclerotic heart disease of [place] coronary artery without angina pectoris (5) COPD (chronic obstructive pulmonary disease) Status: Chronic Qualifiers: COPD type: unspecified COPD Qualified Code(s): J44.9 - Chronic obstructive pulmonary disease, unspecified Category: Medical Code(s): J44.9 - Chronic obstructive pulmonary disease, unspecified (6) History of intravenous drug use in remission Status: Chronic Category: Social Hx Code(s): Z87.898 - Personal history of other specified conditions (7) Severe aortic regurgitation Status: Acute Category: Medical Code(s): I35.1 - Nonrheumatic aortic (valve) insufficiency - Assessment and plan all Dx Assessment and Plan for all problems:: # Acute hypoxic hypercarbic respiratory failure: # CAP: Ms. Rush is a 56-year-old female current smoker greater than [id number] smoking history, carries a diagnosis COPD on trilogy inhaler therapy along with needing albuterol nebulized nebulized 2-3 times a day presented to the hospital worsening respiratory distress along with cough and increasing productive phlegm along with subjective fevers. She does not use any oxygen at home. Blood gas on admission showed respirate acidosis with a pH of 7.24 PCO2 54.7 PO2 35.4 on a venous blood gas. CXR on admission did not show any evidence of dense consolidation or significant airspace disease. Afebrile. No evidence of leukocytosis on admission. COVID-19 and flu PCR negative. Patient on admission was initiated ceftriaxone and azithromycin along with methylprednisolone every 8 hours. Lower extremity Doppler negative for DVT. CT chest reviewed, no dense consolidation noted, upper lobe predominant groundglass opacities bilateral diffuse micronodular tree-[place]-bud opacities predominantly in bilateral lower lobes Sputum growing gram-negative rods, will escalate antibiotics to cefepime and continue azithromycin. Plan: -Initiate respiratory isolation awaiting negative AFBs. Please collect AFBx2 and sputum RODO. -Continue Flutter valve -Continue Combivent Q4 hrs along with budesonide every 12 schedule. -Lower extremity venous D
--- NOTE | 2022-03-08 09:32 | P.PN_ITS ---
Internal Medicine - PN: Subj *Date: 03/08/22 *Time: 09:32 Exam Vital signs and Labs for Last 24 Hours: Temp Pulse Resp BP Pulse Ox 98.1 F 136 H 24 122/90 90 L 03/08/22 07:53 03/08/22 07:53 03/08/22 07:53 03/08/22 07:53 03/08/22 07:53 Laboratory Results - last 24 hr 03/08/22 05:35: WBC 8.4, RBC 3.85 L, Hgb 10.9 L, Hct 35.1 L, MCV 91.1, MCH 28.4, MCHC 31.1 L, RDW 16.6, Plt Count 299, MPV 8.2, Neut % (Auto) 72.2, Lymph % (Auto) 20.5, [place] % (Auto) 6.1, Eos % (Auto) 0.5, Baso % (Auto) 0.7, Neut # (Auto) 6.1, Lymph # (Auto) 1.7, [place] # (Auto) 0.5, Eos # (Auto) 0.0, Baso # (Auto) 0.1 03/08/22 05:35: Sodium 142, Potassium 3.8, Chloride 103, Carbon Dioxide 33 H, Anion Gap 9.8, BUN 28 H, Creatinine 1.20 H, Estimated Creat Clear 48, Estimated GFR 47 L, Est GFR ( Amer) 56 L, Glucose 95 D, Calcium 8.6 I & O for Last 24 hours: Intake & Output 03/05/22 03/06/22 03/07/22 03/08/22 23:59 23:59 23:59 23:59 Intake Total 840 / 840 840 / 1080 1080 / 1080 Output Total 740 / 740 Balance 100 / 100 840 / 1080 1080 / 1080 Weight 56.38 kg 58.967 kg 57.017 kg 57.017 kg Microbiology Reports for the Last 24 Hours: Microbiology 03/05/22 13:00 Sputum - Expectorated Sputum Gram Stain - Final 03/05/22 13:00 Sputum - Expectorated Sputum Sputum Culture - Preliminary Gram Negative Rods Gram Negative Rods#2 03/06/22 17:30 Sputum - Expectorated Sputum Gram Stain - Final 03/06/22 17:30 Sputum - Expectorated Sputum Sputum Culture - Preliminary Gram Negative Rods Assessment and Plan (1) Anemia Status: Acute Qualifiers: Qualified Code(s): D64.9 - Anemia, unspecified Category: Medical Code(s): D64.9 - Anemia, unspecified (2) COPD exacerbation Status: Acute Category: Medical Code(s): J44.1 - Chronic obstructive pulmonary disease with (acute) exacerbation (3) Respiratory failure with hypoxia Status: Acute Qualifiers: Qualified Code(s): J96.01 - Acute respiratory failure with hypoxia Category: Medical Code(s): J96.91 - Respiratory failure, unspecified with hypoxia (4) CAD (coronary artery disease) Status: Chronic Qualifiers: Qualified Code(s): I25.10 - Atherosclerotic heart disease of [place] coronary artery without angina pectoris Category: Medical Code(s): I25.10 - Atherosclerotic heart disease of [place] coronary artery without angina pectoris (5) COPD (chronic obstructive pulmonary disease) Status: Chronic Qualifiers: Qualified Code(s): J44.9 - Chronic obstructive pulmonary disease, unspecified Category: Medical Code(s): J44.9 - Chronic obstructive pulmonary disease, unspecified (6) 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
--- NOTE | 2022-03-08 09:50 | ECG_ITS ---
APPROVED REPORT Exam: Resting ECG HR:124 bpm ECG Measurements Heart Rate 124 AXES VA 116 P 66 QRSd 89 QRS 61 QT 288 T 64 QTc 361 Conclusion SINUS TACHYCARDIA WITH SHORT VA INTERVAL MODERATE VOLTAGE CRITERIA FOR LVH, CONSIDER NORMAL VARIANT [MEETS CRITERIA IN ONE OF: R(aVL), S(V1), R(V5), R(V5/V6)+S(V1)] NONSPECIFIC T-WAVE ABNORMALITY ABNORMAL RHYTHM ECG UNCONFIRMED REPORT Electronically signed by : Evaristo Gonzalez MD 03/09/2022 14:51:48
--- NOTE | 2022-03-08 13:36 | PC.NURSE ---
Pt did stand and sit down in floor, only pain she states is her butt. Pt denies hitting head. Bed alarm is in use. Pt placed in contact/airborne isolation re sputum cx results and tb test pending. Did make Janell aware that pt sit in floor, also that pt is still congested and hr 130's. 02 currently 92% on 4 L NC. Janell also made aware of positive sputum cx's. Awaiting on cb at this time.
--- NOTE | 2022-03-08 13:40 | HMH.ACPN2 ---
Internal Medicine - PN: Subj *Date: 03/08/22 *Time: 19:05 Interval history: 56-year-old female patient sitting up at side of the bed she reports still short of breath, current oxygenation 90% on 4 L per nasal cannula. She reports she is going down for a bronchoscopy today and plan for a CARMEN tomorrow. Cardiology started theophylline and hydralazine to help with aortic insufficiency yesterday. Exam Vital signs and Labs for Last 24 Hours: Temp Pulse Resp BP Pulse Ox 98.1 F 132 H 24 122/90 90 L 03/08/22 07:53 03/08/22 11:00 03/08/22 07:53 03/08/22 07:53 03/08/22 07:53 Laboratory Results - last 24 hr 03/08/22 05:35: WBC 8.4, RBC 3.85 L, Hgb 10.9 L, Hct 35.1 L, MCV 91.1, MCH 28.4, MCHC 31.1 L, RDW 16.6, Plt Count 299, MPV 8.2, Neut % (Auto) 72.2, Lymph % (Auto) 20.5, [place] % (Auto) 6.1, Eos % (Auto) 0.5, Baso % (Auto) 0.7, Neut # (Auto) 6.1, Lymph # (Auto) 1.7, [place] # (Auto) 0.5, Eos # (Auto) 0.0, Baso # (Auto) 0.1 03/08/22 05:35: Sodium 142, Potassium 3.8, Chloride 103, Carbon Dioxide 33 H, Anion Gap 9.8, BUN 28 H, Creatinine 1.20 H, Estimated Creat Clear 48, Estimated GFR 47 L, Est GFR ( Amer) 56 L, Glucose 95 D, Calcium 8.6 I & O for Last 24 hours: Intake & Output 03/05/22 03/06/22 03/07/22 03/08/22 23:59 23:59 23:59 23:59 Intake Total 840 / 840 840 / 1080 1080 / 1080 Output Total 740 / 740 Balance 100 / 100 840 / 1080 1080 / 1080 Weight 124 lb 4.746 oz 130 lb 125 lb 11.2 oz 125 lb 11.215 oz Microbiology Reports for the Last 24 Hours: Microbiology 03/06/22 17:30 Sputum - Expectorated Sputum Gram Stain - Final 03/06/22 17:30 Sputum - Expectorated Sputum Sputum Culture - Final Klebsiella pneumoniae 03/05/22 13:00 Sputum - Expectorated Sputum Gram Stain - Final 03/05/22 13:00 Sputum - Expectorated Sputum Sputum Culture - Final Klebsiella pneumoniae Escherichia coli - Constitutional mild distress - *Routine HEENT Exam Head: Present: normocephalic Eye: Present: EOMI ENT: Present: mucous membranes moist - *Routine Respiratory Exam Present: rhonchi, wheezes. Absent: accessory muscle use - *Routine Cardiovascular Exam Present: tachycardia - *Routine Abdominal Exam Present: soft, normoactive bowel sounds. Absent: tenderness, rebound - *Routine Extremities Exam Present: full ROM. Absent: cyanosis, clubbing, edema, pulses intact - *Routine Skin Exam Present: intact, dry. Absent: cyanosis, erythema - *Routine Neurological Exam Present: alert, oriented X3. Absent: motor deficit - Routine Psychiatric Exam Present: normal affect, normal thought process. Absent: auditory hallucinations Assessment and Plan (1) Anemia Status: Acute Qualifiers: Anemia type: unspecified type Qualified Code(s): D64.9 - Anemia, unspecified Category: Medical Code(s): D64.9 - Anemia, unspecified (2) COPD exacerbation Status: Acute Category: Medical Code(s): J44.1 - Chronic obstructive pulmonary disease with (acute) exacerbation (3) Respiratory failure with hypoxia Status: Acute Qualifiers: Chronicity: acute Qualified Code(s): J96.01 - Acute respiratory failure with hypoxia Category: Medical Code(s): J96.91 - Respiratory failure, unspecified with hypoxia (4) CAD (coronary artery disease) Status: Chronic Qualifiers: Coronary Disease-Associated Artery/Lesion type: [place] artery [place] vs. transplanted heart: [place] heart Associated angina: without angina Qualified Code(s): I25.10 - Atherosclerotic heart disease of [place] coronary artery without angina pectoris Category: Medical Code(s): I25.10 - Atherosclerotic heart disease of [place] coronary artery without angina pectoris (5) COPD (chronic obstructive pulmonary disease) Status: Chronic Qualifiers: COPD type: unspecified COPD Qualified Code(s): J44.9 - Chronic obstructive pu
--- NOTE | 2022-03-08 15:02 | PC.NURSE ---
IV x 1 lasix [address] Orourke, given @ [address] Orourke made aware of sputum cx's. Abt changed. Also, spoke w/ SILVA Mcduffie aware in RE to HR 130's-140's. NNO given at this time, except mx and if sustaining HR 150 or above to notify cardiology.
--- NOTE | 2022-03-08 20:44 | PC.NURSE ---
rt note: Sputum collected and sent to lab.
[2022-03-09] VITALS (9 sets, daily range): BP systolic 125–160; BP diastolic 83–92; PULSE 103–150; RESP 17–22; TEMP 36.3–36.9; O2SAT 90–96; BMI 22.3
[2022-03-09 06:27] LABS: Basophils # 0.1 K/mm3 (0-0.2); Basophils % 0.7 % (0.1-2.0); Eosinophils # 0.1 K/mm3 (0.0-0.4); Eosinophils % 0.9 % (0.1-12.0); Hematocrit 34.7 % (37.0-47.0); Hemoglobin 10.9 g/dL (12.2-16.2); Lymphocytes # 1.6 K/mm3 (0.7-4.5); Lymphocytes % 18.3 % (10-50); Mean Corpuscular HGB Conc 31.5 g/dL (31.8-35.4); Mean Corpuscular Hemoglobin 28.6 pg (27.0-31.2); Mean Corpuscular Volume 90.9 fl (81-99); Mean Platelet Volume 8.2 fl (7.4-10.4); Monocytes # 0.5 K/mm3 (0.1-1.0); Monocytes % 5.1 % (1.7-9.3); Neutrophils # 6.7 K/mm3 (1.8-7.8); Platelet Count 293 K/mm3 (142-424); Red Blood Count 3.82 M/mm3 (4.20-5.40); Red Cell Distribution Width 16.7 % (11.5-17.5)
[2022-03-09 07:19] LABS: Chloride 98 mmol/L (98-107); Potassium 3.5 mmoL/L (3.5-5.1); Sodium 139 mmol/L (136-145)
[2022-03-09 07:22] LABS: Anion Gap 9.5 mEq/L (5-15); Blood Urea Nitrogen 33 mg/dl (7-17); Carbon Dioxide 35 mmol/L (22.0-30.0); Creatinine Clearance Estimated 41 mL/min (50-200); Estimated Glomerular Filt Rate 39 ml/min (>60); GFR (African American) 47 ML/MIN (>60)
[2022-03-09 07:23] LABS: Calcium 8.3 mg/dl (8.4-10.2); Glucose 100 mg/dl (74-100)
--- NOTE | 2022-03-09 07:44 | PC.NURSE ---
Notified Juan Murillo of tachycardia of 150's. No new orders at this time.
--- NOTE | 2022-03-09 07:56 | ECG_ITS ---
APPROVED REPORT Exam: Resting ECG HR:141 bpm ECG Measurements Heart Rate 141 AXES WV 100 P 75 QRSd 86 QRS 81 QT 288 T 67 QTc 370 Conclusion SINUS TACHYCARDIA WITH SHORT WV INTERVAL, POSSIBLE ATRIAL FLUTTER MODERATE VOLTAGE CRITERIA FOR LVH, CONSIDER NORMAL VARIANT [MEETS CRITERIA IN ONE OF: R(aVL), S(V1), R(V5), R(V5/V6)+S(V1)] NONSPECIFIC ST & T-WAVE ABNORMALITY ABNORMAL RHYTHM ECG UNCONFIRMED REPORT Electronically signed by : Evaristo Gonzalez MD 03/09/2022 14:50:22
--- NOTE | 2022-03-09 08:23 | HMH.PULMPN ---
Internal Medicine - PN: Subj *Date: 03/09/22 *Time: 10:31 Interval history: No acute respiratory events overnight. Denies any new complaints Exam - Constitutional Constitutional:: Present: no acute distress, comfortable - HENMT Exam HENMT: Present: normocephalic, atraumatic - Eye Exam Eyes:: Present: normal appearance both eyes and related structures - Neck Exam Neck:: Present: normal visual inspection - Respiratory Exam Respiratory:: Present: able to speak in complete sentences, respiratory distress, rhonchi. Absent: wheezing - Cardiovascular Exam Cardiac:: Present: S1, S2 - GI Exam GI:: Present: soft, no hepatosplenomegaly - Skin Exam Skin: Present: warm, no rash - Neurological Exam Neurological: Present: alert, awake, normal cognition - Extremities Exam Extremities: Present: no cyanosis, no clubbing, no edema - Psychiatric Exam Psychiatric: Present: normal affect Assessment and Plan (1) Anemia Status: Acute Qualifiers: Anemia type: unspecified type Qualified Code(s): D64.9 - Anemia, unspecified Category: Medical Code(s): D64.9 - Anemia, unspecified (2) COPD exacerbation Status: Acute Category: Medical Code(s): J44.1 - Chronic obstructive pulmonary disease with (acute) exacerbation (3) Respiratory failure with hypoxia Status: Acute Qualifiers: Chronicity: acute Qualified Code(s): J96.01 - Acute respiratory failure with hypoxia Category: Medical Code(s): J96.91 - Respiratory failure, unspecified with hypoxia (4) CAD (coronary artery disease) Status: Chronic Qualifiers: Coronary Disease-Associated Artery/Lesion type: [place] artery [place] vs. 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 Rush is a 56-year-old female current smoker greater than [id number] smoking history, carries a diagnosis COPD on trilogy inhaler therapy along with needing albuterol nebulized nebulized 2-3 times a day presented to the hospital worsening respiratory distress along with cough and increasing productive phlegm along with subjective fevers. She does not use any oxygen at home. Blood gas on admission showed respirate acidosis with a pH of 7.24 PCO2 54.7 PO2 35.4 on a venous blood gas. CXR on admission did not show any evidence of dense consolidation or significant airspace disease. Afebrile. No evidence of leukocytosis on admission. COVID-19 and flu PCR negative. Patient on admission was initiated ceftriaxone and azithromycin along with methylprednisolone every 8 hours. Lower extremity Doppler negative for DVT. CT chest reviewed, no dense consolidation noted, upper lobe predominant groundglass opacities bilateral diffuse micronodular tree-in-bud opacities predominantly in bilateral lower lobes Sputum growing Klebsiella and E. coli, antibiotics escalated to meropenem. Plan continue for 10 days. Plan: -Follow AFB x2 and if negative then will remove respiratory isolation. If AFB results positive recommend to treat appropriately. Sp
--- NOTE | 2022-03-09 09:07 | XR_ITS ---
FINAL REPORT CLINICAL HISTORY: Confirm PICC line placement COMPARISON: March 06, 2022 FINDINGS: SINGLE VIEW CHEST. A new right PICC line is present with the tip in the mid SVC. The heart is normal in size. The mediastinum is unremarkable. There is a small left pleural effusion or pleural thickening. There is no pneumothorax. IMPRESSION: New right PICC line with the tip in the mid SVC. Small left pleural effusion or pleural thickening. Reviewed, Interpreted and Dictated by Edward Espinoza III, MD Transcribed by Lisa Bryson Authenticated by Edward Espinoza III, MD on 03/09/2022 02:34:03 PM [facility]
--- NOTE | 2022-03-09 10:00 | SW/DCPLANNER ---
Addendum entered by Reva Nielsen 03/12/22 09:38: The plan for this patient is to discharge home today. Patient prefers to return back to [facility] twice a day for IV antibiotics for total of 5 more days after today. Patient has stated that she will have transportation to hospital for IV antibiotic. Patient has no other needs at this time. Original Note: During rounds this Dr Elis this AM we did have a brief conversation with this patient regarding discharge plans. I explained to patient that she will need a PICC line and IV antibiotics once medically stable for discharge. I explained to patient that at this time there are no home health agencies in network with her insurance (Medicaid). Patient's two options would be return to [facility] outpatient for IV antibiotics three times a day or placement for 30 days under Medicaid pending. Patient stated that she would prefer to return to [facility] three times a day for IV antibiotic. Patient stated that she would have transportation for outpatient IV antibiotics. Discharge date is unknown at this time. I will continue to follow up with this patient until medically stable for discharge.
--- NOTE | 2022-03-09 10:06 | HMH.ACPN2 ---
Internal Medicine - PN: Subj *Date: 03/09/22 *Time: 09:00 Interval history: pt hr 160 wheezing and rhonci and increased work of breathing Exam Vital signs and Labs for Last 24 Hours: Temp Pulse Resp BP Pulse Ox 97.5 F L 149 H 20 152/88 H 93 L 03/09/22 08:00 03/09/22 08:00 03/09/22 08:00 03/09/22 08:00 03/09/22 08:00 Laboratory Results - last 24 hr 03/09/22 05:42: WBC 9.0, RBC 3.82 L, Hgb 10.9 L, Hct 34.7 L, MCV 90.9, MCH 28.6, MCHC 31.5 L, RDW 16.7, Plt Count 293, MPV 8.2, Neut % (Auto) 75.0, Lymph % (Auto) 18.3, [place] % (Auto) 5.1, Eos % (Auto) 0.9, Baso % (Auto) 0.7, Neut # (Auto) 6.7, Lymph # (Auto) 1.6, [place] # (Auto) 0.5, Eos # (Auto) 0.1, Baso # (Auto) 0.1 03/09/22 05:42: Sodium 139, Potassium 3.5, Chloride 98, Carbon Dioxide 35 H, Anion Gap 9.5, BUN 33 H, Creatinine 1.40 H, Estimated Creat Clear 41, Estimated GFR 39 L, Est GFR ( Amer) 47 L, Glucose 100, Calcium 8.3 L I & O for Last 24 hours: Intake & Output 03/06/22 03/07/22 03/08/22 03/09/22 11:59 11:59 11:59 11:59 Intake Total 720 / 720 1320 / 1320 360 / 360 460 / 460 Output Total 240 / 240 1000 / 1000 900 / 900 Balance 480 / 480 1320 / 1320 -640 / -640 -440 / -440 Weight 130 lb 125 lb 11.2 oz 125 lb 11.215 oz 126 lb Microbiology Reports for the Last 24 Hours: Microbiology 03/08/22 10:10 Sputum - Expectorated Sputum RODO Preparation - Final 03/06/22 17:30 Sputum - Expectorated Sputum Gram Stain - Final 03/06/22 17:30 Sputum - Expectorated Sputum Sputum Culture - Final Klebsiella pneumoniae 03/05/22 13:00 Sputum - Expectorated Sputum Gram Stain - Final 03/05/22 13:00 Sputum - Expectorated Sputum Sputum Culture - Final Klebsiella pneumoniae Escherichia coli - Constitutional mild distress - *Routine HEENT Exam Head: Present: normocephalic Eye: Present: EOMI, PERRL ENT: Present: mucous membranes moist - *Routine Neck Exam Present: supple. Absent: lymphadenopathy - *Routine Respiratory Exam Present: rhonchi, wheezes - *Routine Cardiovascular Exam Present: RRR, murmur - *Routine Abdominal Exam Present: soft, normoactive bowel sounds. Absent: tenderness - *Routine Extremities Exam Absent: cyanosis, clubbing, edema - *Routine Skin Exam Present: warm. Absent: rash - *Routine Neurological Exam Present: alert, oriented X3 Assessment and Plan (1) Anemia Status: Acute Qualifiers: Anemia type: unspecified type Qualified Code(s): D64.9 - Anemia, unspecified Category: Medical Code(s): D64.9 - Anemia, unspecified (2) COPD exacerbation Status: Acute Category: Medical Code(s): J44.1 - Chronic obstructive pulmonary disease with (acute) exacerbation Sputum growing Klebsiella and E. coli, antibiotics escalated to meropenem. The plan continue for 10 days. (3) Respiratory failure with hypoxia Status: Acute Qualifiers: Chronicity: acute Qualified Code(s): J96.01 - Acute respiratory failure with hypoxia Category: Medical Code(s): J96.91 - Respiratory failure, unspecified with hypoxia ct results: IMPRESSION: Numerous new micronodular bilateral opacities consistent with an infectious process. This may represent mycobacterial/fungal diseases or other inflammatory process. New patchy bilateral ground-glass opacities which are greater in the upper lobes. Bronchial wall thickening consistent with bronchitis. added antibiotics waiting on tb culture results (4) CAD (coronary artery disease) Status: Chronic Qualifiers: Coronary Disease-Associated Artery/Lesion type: [place] artery [place] vs. transplanted heart: [place] heart Associated angina: without angina Qualified Code(s): I25.10 - Atherosclerotic heart disease of [place] coronary artery without angina pectoris Category: Medical Code(s): I25.10 - Atherosclerotic heart disease of [place] coronary artery without hiren
--- NOTE | 2022-03-09 12:49 | DIET.NUTRFU ---
Po intake is good with 83% average recorded intake for last three meals. BUN and Creatinine elevated. No new questions at this time. Will continue to monitor.
--- NOTE | 2022-03-09 16:00 | PC.NURSE ---
PICC line was confirmed by x-ray prior to use, New right PICC line with the tip in the mid SVC ; PICC line nurse also called to inform that line was confirmed to use, repeated and verified
--- NOTE | 2022-03-09 16:34 | HMH.PNCARD ---
Subjective Date: 03/09/22 Time: 16:34 Principal diagnosis: Pneumonia, Aortic Insufficiency Interval history: 56-year-old white female sitting in bedside chair in no acute distress. Clinically has improved from a respiratory distress status through the week. No chest pain, pressure or tightness. Theophylline discontinued this a.m. due to increasing heart rates into the 150 bpm range. Current heart rate about 120 bpm. Exam Vital signs and Labs for Last 24 Hours: Temp Pulse Resp BP Pulse Ox 98.1 F 135 H 20 126/83 91 L 03/09/22 16:00 03/09/22 16:00 03/09/22 16:00 03/09/22 16:00 03/09/22 16:00 Laboratory Results - last 24 hr 03/09/22 05:42: WBC 9.0, RBC 3.82 L, Hgb 10.9 L, Hct 34.7 L, MCV 90.9, MCH 28.6, MCHC 31.5 L, RDW 16.7, Plt Count 293, MPV 8.2, Neut % (Auto) 75.0, Lymph % (Auto) 18.3, [place] % (Auto) 5.1, Eos % (Auto) 0.9, Baso % (Auto) 0.7, Neut # (Auto) 6.7, Lymph # (Auto) 1.6, [place] # (Auto) 0.5, Eos # (Auto) 0.1, Baso # (Auto) 0.1 03/09/22 05:42: Sodium 139, Potassium 3.5, Chloride 98, Carbon Dioxide 35 H, Anion Gap 9.5, BUN 33 H, Creatinine 1.40 H, Estimated Creat Clear 41, Estimated GFR 39 L, Est GFR ( Amer) 47 L, Glucose 100, Calcium 8.3 L I & O for Last 24 hours: Intake & Output 03/07/22 03/08/22 03/09/22 03/10/22 11:59 11:59 11:59 11:59 Intake Total 1320 / 1320 360 / 360 460 / 460 240 / 240 Output Total 1000 / 1000 900 / 900 Balance 1320 / 1320 -640 / -640 -440 / -440 240 / 240 Weight 125 lb 11.2 oz 125 lb 11.215 oz 126 lb Microbiology Reports for the Last 24 Hours: Microbiology 03/08/22 10:10 Sputum - Expectorated Sputum Acid Fast Bacilli Smear - Final 03/04/22 14:03 Blood Blood Culture - Final NO GROWTH AFTER 5 DAYS 03/04/22 14:03 Blood Blood Culture - Final NO GROWTH AFTER 5 DAYS 03/08/22 10:10 Sputum - Expectorated Sputum RODO Preparation - Final 03/06/22 17:30 Sputum - Expectorated Sputum Gram Stain - Final 03/06/22 17:30 Sputum - Expectorated Sputum Sputum Culture - Final Klebsiella pneumoniae 03/05/22 13:00 Sputum - Expectorated Sputum Gram Stain - Final 03/05/22 13:00 Sputum - Expectorated Sputum Sputum Culture - Final Klebsiella pneumoniae Escherichia coli - Constitutional no acute distress - *Routine Respiratory Exam Comments: Diffuse crackles and squeaks noted posteriorly and anteriorly. 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 Acute respiratory failure with hypoxia, patient has Klebsiella and E. coli in her sputum culture. Antibiotics per Dr. Orourke 2. Anemia, hemoglobin 10-11, stable 3. COPD, per Dr. Orourke. 4. CKD, stage II, Cr 1.4 and GFR 39 today 5. Elevated sed rate but patient is on steroid therapy 6. Aortic insufficiency, severe on TTE. CARMEN postponed due to possibility of tuberculosis. Once patient's pulmonary status has improved then will reconsider transesophageal echocardiogram. Continue IV lasix and potassium supplementation. 7. Mild CAD by cath early 2020 8. GERD, on PPI
[2022-03-10] VITALS (7 sets, daily range): BP systolic 106–168; BP diastolic 72–97; PULSE 65–150; RESP 17–20; TEMP 36.6–37.2; O2SAT 92–95; BMI 21.8
[2022-03-10 00:57] LABS: Benzodiazepines Screen,Urine Negative ng/ml (<200)
[2022-03-10 00:58] LABS: Amphetamine/Metha Screen,Urine Negative ng/ml (<1000)
[2022-03-10 00:59] LABS: Barbiturates Screen,Urine Negative ng/ml (<200); Cannabinoid Screen,Urine Negative ng/ml (<50)
[2022-03-10 01:00] LABS: Cocaine Screen,Urine Negative ng/ml (<300)
[2022-03-10 01:01] LABS: Methadone Screen,Urine Negative ng/ml (<300); Opiate Screen,Urine Negative ng/ml (<300)
[2022-03-10 01:02] LABS: Phencyclidine Screen,Urine Negative ng/ml (<25)
--- NOTE | 2022-03-10 04:31 | PC.NURSE ---
Patient difficult to arouse for PO meds. This nurse sternal rubbed patient and was able to get her to respond. Patient alert and oriented but falls back to sleep. Unable to give 2100 meds do to patient altered LOC. Dr Gonzalez made aware of patients condition. See provider notification for new orders.
[2022-03-10 06:12] LABS: Basophils # 0.1 K/mm3 (0-0.2); Basophils % 1.2 % (0.1-2.0); Eosinophils # 0.1 K/mm3 (0.0-0.4); Hematocrit 36.9 % (37.0-47.0); Hemoglobin 11.5 g/dL (12.2-16.2); Lymphocytes # 1.8 K/mm3 (0.7-4.5); Lymphocytes % 17.3 % (10-50); Mean Corpuscular HGB Conc 31.2 g/dL (31.8-35.4); Mean Corpuscular Hemoglobin 28.4 pg (27.0-31.2); Mean Platelet Volume 8.1 fl (7.4-10.4); Monocytes # 0.4 K/mm3 (0.1-1.0); Monocytes % 4.3 % (1.7-9.3); Neutrophils # 7.7 K/mm3 (1.8-7.8); Neutrophils % 76.2 % (37.0-80.0); Platelet Count 298 K/mm3 (142-424); Red Blood Count 4.05 M/mm3 (4.20-5.40); Red Cell Distribution Width 16.4 % (11.5-17.5); White Blood Count 10.1 K/mm3 (4.8-10.8)
[2022-03-10 06:19] LABS: Chloride 94 mmol/L (98-107); Potassium 3.7 mmoL/L (3.5-5.1); Sodium 137 mmol/L (136-145)
[2022-03-10 06:22] LABS: Blood Urea Nitrogen 45 mg/dl (7-17); Creatinine Clearance Estimated 37 mL/min (50-200); Estimated Glomerular Filt Rate 36 ml/min (>60); GFR (African American) 44 ML/MIN (>60)
[2022-03-10 06:23] LABS: Anion Gap 9.7 mEq/L (5-15); Calcium 8.3 mg/dl (8.4-10.2); Carbon Dioxide 37 mmol/L (22.0-30.0); Glucose 82 mg/dl (74-100)
--- NOTE | 2022-03-10 11:57 | HMH.ACPN2 ---
Internal Medicine - PN: Subj *Date: 03/10/22 *Time: 12:04 Interval history: Patient relays an uneventful night. Continues to cough with purulent secretions. AFB studies pending. Exam Vital signs and Labs for Last 24 Hours: Temp Pulse Resp BP Pulse Ox 98.9 F 80 18 106/73 L 95 03/10/22 11:46 03/10/22 11:46 03/10/22 11:46 03/10/22 11:46 03/10/22 11:46 Laboratory Results - last 24 hr 03/10/22 00:14: Urine Opiates Screen Negative, Urine Methadone Screen Negative, Ur Barbituates Screen Negative, Ur Phencyclidine Scrn Negative, Ur Amphetamines Screen Negative, U Benzodiazepines Scrn Negative, Urine Cocaine Screen Negative, U Marijuana (THC) Screen Negative 03/10/22 06:00: WBC 10.1, RBC 4.05 L, Hgb 11.5 L, Hct 36.9 L, MCV 91.0, MCH 28.4, MCHC 31.2 L, RDW 16.4, Plt Count 298, MPV 8.1, Neut % (Auto) 76.2, Lymph % (Auto) 17.3, [place] % (Auto) 4.3, Eos % (Auto) 1.0, Baso % (Auto) 1.2, Neut # (Auto) 7.7, Lymph # (Auto) 1.8, [place] # (Auto) 0.4, Eos # (Auto) 0.1, Baso # (Auto) 0.1 03/10/22 06:00: Sodium 137, Potassium 3.7, Chloride 94 L, Carbon Dioxide 37 H, Anion Gap 9.7, BUN 45 H D, Creatinine 1.50 H, Estimated Creat Clear 37, Estimated GFR 36 L, Est GFR ( Amer) 44 L, Glucose 82, Calcium 8.3 L I & O for Last 24 hours: Intake & Output 03/07/22 03/08/22 03/09/22 03/10/22 23:59 23:59 23:59 23:59 Intake Total 1080 / 1080 360 / 360 558 / 678 480 / 480 Output Total 1300 / 1300 600 / 600 Balance 1080 / 1080 -940 / -940 -42 / 78 480 / 480 Weight 125 lb 11.2 oz 125 lb 11.215 oz 126 lb 123 lb Microbiology Reports for the Last 24 Hours: Microbiology 03/08/22 10:10 Sputum - Expectorated Sputum Acid Fast Bacilli Smear - Final 03/04/22 14:03 Blood Blood Culture - Final NO GROWTH AFTER 5 DAYS 03/04/22 14:03 Blood Blood Culture - Final NO GROWTH AFTER 5 DAYS - Constitutional no acute distress, chronically ill appearing, cooperative - *Routine HEENT Exam Head: Present: normocephalic Eye: Present: EOMI, PERRL ENT: Present: mucous membranes moist - *Routine Neck Exam Present: supple. Absent: lymphadenopathy - *Routine Respiratory Exam Present: rhonchi, wheezes, crackles, diminished air movement - *Routine Cardiovascular Exam Present: RRR, tachycardia - *Routine Abdominal Exam Present: soft, normoactive bowel sounds. Absent: tenderness - *Routine Extremities Exam Absent: cyanosis, clubbing, edema - *Routine Skin Exam Present: warm. Absent: rash - *Routine Neurological Exam Present: alert, oriented X3 Assessment and Plan (1) Anemia Status: Acute Qualifiers: Anemia type: unspecified type Qualified Code(s): D64.9 - Anemia, unspecified Category: Medical Code(s): D64.9 - Anemia, unspecified (2) COPD exacerbation Status: Acute Category: Medical Code(s): J44.1 - Chronic obstructive pulmonary disease with (acute) exacerbation (3) Respiratory failure with hypoxia Status: Acute Qualifiers: Chronicity: acute Qualified Code(s): J96.01 - Acute respiratory failure with hypoxia Category: Medical Code(s): J96.91 - Respiratory failure, unspecified with hypoxia (4) CAD (coronary artery disease) Status: Chronic Qualifiers: Coronary Disease-Associated Artery/Lesion type: [place] artery [place] vs. transplanted heart: [place] heart Associated angina: without angina Qualified Code(s): I25.10 - Atherosclerotic heart disease of [place] coronary artery without angina pectoris Category: Medical Code(s): I25.10 - Atherosclerotic heart disease of [place] coronary artery without angina pectoris (5) COPD (chronic obstructive pulmonary disease) Status: Chronic Qualifiers: COPD type: unspecified COPD Qualified Code(s): J44.9 - Chronic obstructive pulmonary disease, unspecified Category: Medical Code(s): J44.9 - Chronic obstructive pulmonary disease, unspecified (6) History of
--- NOTE | 2022-03-10 17:55 | PC.NURSE ---
PT IS SITTING UP IN THE CHAIR. ALERT AND ORIENTED X4. GABAPENTIN AND KLONOPIN HELD AT 1700 DO TO PT BEING DROWSY AND REQUIRED STERNAL RUB TO AWAKEN. LUNG SOUNDS DIMINISHED WITH SCATTERED RHONCHI/WHEEZES AND BILATERAL CRACKLES. HR THIS MORNING RESPONDED WELL TO PO METOPROLOL. O2 SATURATION HAS MAINTAINED 91-95% ON 4 L NC. ABDOMEN SOFT/NON TENDER WITH ACTIVE BOWEL SOUNDS. EATING AND DRINKING WELL. WILL CONTINUE TO MONITOR.
[2022-03-11] VITALS (9 sets, daily range): BP systolic 111–159; BP diastolic 69–88; PULSE 67–130; RESP 14–24; TEMP 36.3–36.8; O2SAT 92–96; BMI 21.7
[2022-03-11 06:42] LABS: Basophils # 0.1 K/mm3 (0-0.2); Basophils % 1.1 % (0.1-2.0); Eosinophils # 0.1 K/mm3 (0.0-0.4); Eosinophils % 0.9 % (0.1-12.0); Hematocrit 36.7 % (37.0-47.0); Hemoglobin 11.5 g/dL (12.2-16.2); Lymphocytes # 1.9 K/mm3 (0.7-4.5); Lymphocytes % 14.6 % (10-50); Mean Corpuscular HGB Conc 31.3 g/dL (31.8-35.4); Mean Corpuscular Hemoglobin 28.8 pg (27.0-31.2); Mean Corpuscular Volume 91.8 fl (81-99); Mean Platelet Volume 8.4 fl (7.4-10.4); Monocytes # 0.3 K/mm3 (0.1-1.0); Monocytes % 2.3 % (1.7-9.3); Neutrophils # 10.5 K/mm3 (1.8-7.8); Neutrophils % 81.1 % (37.0-80.0); Platelet Count 304 K/mm3 (142-424); Red Cell Distribution Width 16.2 % (11.5-17.5)
[2022-03-11 06:54] LABS: Chloride 96 mmol/L (98-107)
[2022-03-11 06:55] LABS: Potassium 3.3 mmoL/L (3.5-5.1); Sodium 137 mmol/L (136-145)
[2022-03-11 06:57] LABS: Blood Urea Nitrogen 46 mg/dl (7-17); Creatinine Clearance Estimated 40 mL/min (50-200); Estimated Glomerular Filt Rate 39 ml/min (>60); GFR (African American) 47 ML/MIN (>60)
[2022-03-11 06:58] LABS: Anion Gap 8.3 mEq/L (5-15); Calcium 8.1 mg/dl (8.4-10.2); Carbon Dioxide 36 mmol/L (22.0-30.0); Glucose 134 mg/dl (74-100)
--- NOTE | 2022-03-11 12:28 | P.PN_ITS ---
Internal Medicine - PN: Subj *Date: 03/11/22 *Time: 12:28 Exam Vital signs and Labs for Last 24 Hours: Temp Pulse Resp BP Pulse Ox 97.3 F L 104 H 24 155/88 H 92 L 03/11/22 08:00 03/11/22 08:00 03/11/22 08:00 03/11/22 08:00 03/11/22 08:00 Laboratory Results - last 24 hr 03/11/22 06:30: WBC 13.0 H D, RBC 4.00 L, Hgb 11.5 L, Hct 36.7 L, MCV 91.8, MCH 28.8, MCHC 31.3 L, RDW 16.2, Plt Count 304, MPV 8.4, Neut % (Auto) 81.1 H, Lymph % (Auto) 14.6, [place] % (Auto) 2.3, Eos % (Auto) 0.9, Baso % (Auto) 1.1, Neut # (Auto) 10.5 H, Lymph # (Auto) 1.9, [place] # (Auto) 0.3, Eos # (Auto) 0.1, Baso # (Auto) 0.1 03/11/22 06:30: Sodium 137, Potassium 3.3 L, Chloride 96 L, Carbon Dioxide 36 H, Anion Gap 8.3, BUN 46 H, Creatinine 1.40 H, Estimated Creat Clear 40, Estimated GFR 39 L, Est GFR ( Amer) 47 L, Glucose 134 H, Calcium 8.1 L I & O for Last 24 hours: Intake & Output 03/08/22 03/09/22 03/10/22 03/11/22 23:59 23:59 23:59 23:59 Intake Total 360 / 360 558 / 678 1320 / 1320 Output Total 1300 / 1300 600 / 600 500 / 500 Balance -940 / -940 -42 / 78 820 / 820 Weight 57.017 kg 57.153 kg 55.792 kg 55.701 kg Microbiology Reports for the Last 24 Hours: Microbiology 03/08/22 15:30 Sputum - Expectorated Sputum Acid Fast Bacilli Smear - Final Assessment and Plan (1) Anemia Status: Acute Qualifiers: Anemia type: unspecified type Qualified Code(s): D64.9 - Anemia, unspecified Category: Medical Code(s): D64.9 - Anemia, unspecified (2) COPD exacerbation Status: Acute Category: Medical Code(s): J44.1 - Chronic obstructive pulmonary disease with (acute) exacerbation (3) Respiratory failure with hypoxia Status: Acute Qualifiers: Chronicity: acute Qualified Code(s): J96.01 - Acute respiratory failure with hypoxia Category: Medical Code(s): J96.91 - Respiratory failure, unspecified with hypoxia (4) CAD (coronary artery disease) Status: Chronic Qualifiers: Coronary Disease-Associated Artery/Lesion type: [place] artery [place] vs. 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 )
--- NOTE | 2022-03-11 12:48 | HMH.ACPN2 ---
Internal Medicine - PN: Subj *Date: 03/11/22 *Time: 12:49 Interval history: no signif clinical setbacks overnight Exam Vital signs and Labs for Last 24 Hours: Temp Pulse Resp BP Pulse Ox 97.3 F L 104 H 24 155/88 H 92 L 03/11/22 08:00 03/11/22 08:00 03/11/22 08:00 03/11/22 08:00 03/11/22 08:00 Laboratory Results - last 24 hr 03/11/22 06:30: WBC 13.0 H D, RBC 4.00 L, Hgb 11.5 L, Hct 36.7 L, MCV 91.8, MCH 28.8, MCHC 31.3 L, RDW 16.2, Plt Count 304, MPV 8.4, Neut % (Auto) 81.1 H, Lymph % (Auto) 14.6, [place] % (Auto) 2.3, Eos % (Auto) 0.9, Baso % (Auto) 1.1, Neut # (Auto) 10.5 H, Lymph # (Auto) 1.9, [place] # (Auto) 0.3, Eos # (Auto) 0.1, Baso # (Auto) 0.1 03/11/22 06:30: Sodium 137, Potassium 3.3 L, Chloride 96 L, Carbon Dioxide 36 H, Anion Gap 8.3, BUN 46 H, Creatinine 1.40 H, Estimated Creat Clear 40, Estimated GFR 39 L, Est GFR ( Amer) 47 L, Glucose 134 H, Calcium 8.1 L I & O for Last 24 hours: Intake & Output 03/08/22 03/09/22 03/10/22 03/11/22 23:59 23:59 23:59 23:59 Intake Total 360 / 360 558 / 678 1320 / 1320 Output Total 1300 / 1300 600 / 600 500 / 500 Balance -940 / -940 -42 / 78 820 / 820 Weight 125 lb 11.215 oz 126 lb 123 lb 122 lb 12.8 oz Microbiology Reports for the Last 24 Hours: Microbiology 03/08/22 15:30 Sputum - Expectorated Sputum Acid Fast Bacilli Smear - Final - Constitutional no acute distress, chronically ill appearing - *Routine HEENT Exam Head: Present: normocephalic Eye: Present: EOMI, PERRL ENT: Present: mucous membranes moist - *Routine Neck Exam Present: supple. Absent: lymphadenopathy - *Routine Respiratory Exam Present: rhonchi, crackles, diminished air movement. Absent: accessory muscle use, respiratory distress, stridor, wheezes - *Routine Cardiovascular Exam Present: RRR - *Routine Abdominal Exam Present: soft, normoactive bowel sounds. Absent: tenderness - *Routine Extremities Exam Absent: cyanosis, clubbing, edema - *Routine Skin Exam Present: warm. Absent: rash - *Routine Neurological Exam Present: alert, oriented X3 Assessment and Plan (1) Anemia Status: Acute Qualifiers: Anemia type: unspecified type Qualified Code(s): D64.9 - Anemia, unspecified Category: Medical Code(s): D64.9 - Anemia, unspecified (2) COPD exacerbation Status: Acute Category: Medical Code(s): J44.1 - Chronic obstructive pulmonary disease with (acute) exacerbation (3) Respiratory failure with hypoxia Status: Acute Qualifiers: Chronicity: acute Qualified Code(s): J96.01 - Acute respiratory failure with hypoxia Category: Medical Code(s): J96.91 - Respiratory failure, unspecified with hypoxia (4) CAD (coronary artery disease) Status: Chronic Qualifiers: Coronary Disease-Associated Artery/Lesion type: [place] artery [place] vs. transplanted heart: [place] heart Associated angina: without angina Qualified Code(s): I25.10 - Atherosclerotic heart disease of [place] coronary artery without angina pectoris Category: Medical Code(s): I25.10 - Atherosclerotic heart disease of [place] coronary artery without angina pectoris (5) COPD (chronic obstructive pulmonary disease) Status: Chronic Qualifiers: COPD type: unspecified COPD Qualified Code(s): J44.9 - Chronic obstructive pulmonary disease, unspecified Category: Medical Code(s): J44.9 - Chronic obstructive pulmonary disease, unspecified (6) 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
[2022-03-12] VITALS: PULSE 110
[2022-03-12 04:00] VITALS: BP 134/84; PULSE 80; RESP 18; TEMP 36.6; O2SAT 98
[2022-03-12 05:00] VITALS: BMI 21.8
[2022-03-12 05:45] LABS: Basophils # 0.1 K/mm3 (0-0.2); Eosinophils # 0.1 K/mm3 (0.0-0.4); Mean Corpuscular HGB Conc 31.2 g/dL (31.8-35.4); Mean Corpuscular Hemoglobin 28.4 pg (27.0-31.2); Red Cell Distribution Width 16.4 % (11.5-17.5)
[2022-03-12 05:49] LABS: Basophils % 0.7 % (0.1-2.0); Eosinophils % 1.1 % (0.1-12.0); Hematocrit 33.5 % (37.0-47.0); Lymphocytes # 1.9 K/mm3 (0.7-4.5); Lymphocytes % 16.6 % (10-50); Mean Corpuscular Volume 91.1 fl (81-99); Mean Platelet Volume 8.4 fl (7.4-10.4); Monocytes # 0.4 K/mm3 (0.1-1.0); Monocytes % 3.5 % (1.7-9.3); Neutrophils % 78.1 % (37.0-80.0); Platelet Count 294 K/mm3 (142-424); Red Blood Count 3.67 M/mm3 (4.20-5.40); White Blood Count 11.5 K/mm3 (4.8-10.8)
[2022-03-12 05:50] LABS: Hemoglobin 10.4 g/dL (12.2-16.2)
[2022-03-12 05:56] LABS: Anion Gap 5.8 mEq/L (5-15); Blood Urea Nitrogen 45 mg/dl (7-17); Calcium 8.7 mg/dl (8.4-10.2); Carbon Dioxide 39 mmol/L (22.0-30.0); Chloride 97 mmol/L (98-107); Creatinine Clearance Estimated 43 mL/min (50-200); Estimated Glomerular Filt Rate 43 ml/min (>60); GFR (African American) 51 ML/MIN (>60); Potassium 3.8 mmoL/L (3.5-5.1); Sodium 138 mmol/L (136-145)
--- NOTE | 2022-03-12 06:00 | XR_ITS ---
PROCEDURE INFORMATION: Exam: XR Chest Exam date and time: 03/12/2022 6:14 AM Age: 56 years old Clinical indication: Shortness of breath and other: Pneumonia; Additional info: Pna TECHNIQUE: Imaging protocol: XR of the chest. Views: 1 view. COMPARISON: CR XR CHEST PORTABLE PICC PLAC 03/09/2022 1:13 PM FINDINGS: Tubes, catheters and devices: Central venous catheters in good position. Lungs: The lungs are hyperinflated. Some patchy airspace disease is seen in the left lung base. Pleural spaces: Unremarkable. No pleural effusion. No pneumothorax. Heart/Mediastinum: Unremarkable. No cardiomegaly. Bones/joints: Unremarkable. IMPRESSION: Patchy airspace disease left lung base may represent new infiltrate.
[2022-03-12 06:05] LABS: Glucose 90 mg/dl (74-100)
[2022-03-12 08:00] VITALS: BP 132/87; PULSE 119; RESP 22; TEMP 36.6; O2SAT 92
--- NOTE | 2022-03-12 10:05 | HMH.DCSUM ---
General - General Admission date:: 03/04/22 Discharge date: 03/12/22 HPI HPI: 56-year-old female presenting to the emergency department with cough, chest congestion, shortness of breath, weakness. Symptoms have been on and off for the last few days. pt states soa has gotten worse yesterday and overnight. She has a cough that is wet and nonproductive. She was evaluated in our emergency department around 5 AM, 6 hours ago. At that time they was recommended she be admitted to the hospital, and she refused Since she got home has been weak and short of breath. Pt states she had a family member called 911 for her to be taken to ed. Pt admitted and treated with IV fluids per sepsis protocol. Chest x-ray shows no acute process despite increasing BNP. Troponins have returned normal x3. EKG shows no acute ST segment changes. Cardiology consulted for evaluation of suspected CHF.Respiratory acidosis noted on a venous ABG with pH of 7.24 with PCO2 of 54.7 PO2 35 HCO3 23. pulmonology for copd Hospital Course Hospital Course: Abnormal Lab Results 03/12/22 05:40: WBC 11.5 H, RBC 3.67 L, Hgb 10.4 L, Hct 33.5 L, MCHC 31.2 L, Neut # (Auto) 9.0 H 03/12/22 05:40: Chloride 97 L, Carbon Dioxide 39 H, BUN 45 H, Creatinine 1.30 H, Estimated GFR 43 L, Est GFR ( Amer) 51 L Microbiology 03/08/22 15:30 Sputum - Expectorated Sputum Acid Fast Bacilli Smear - Final 03/08/22 10:10 Sputum - Expectorated Sputum Acid Fast Bacilli Smear - Final 03/04/22 14:03 Blood Blood Culture - Final NO GROWTH AFTER 5 DAYS 03/04/22 14:03 Blood Blood Culture - Final NO GROWTH AFTER 5 DAYS 03/08/22 10:10 Sputum - Expectorated Sputum RODO Preparation - Final 03/06/22 17:30 Sputum - Expectorated Sputum Gram Stain - Final 03/06/22 17:30 Sputum - Expectorated Sputum Sputum Culture - Final Klebsiella pneumoniae 03/05/22 13:00 Sputum - Expectorated Sputum Gram Stain - Final 03/05/22 13:00 Sputum - Expectorated Sputum Sputum Culture - Final Klebsiella pneumoniae Escherichia coli cardiology consult:Assessment and Plan for All Diagnoses:: 1. Acute respiratory failure with hypoxia, patient has Klebsiella and E. coli in her sputum culture. Antibiotics per Dr. Orourke 2. Anemia, hemoglobin 10-11, stable 3. COPD, per Dr. Orourke. 4. CKD, stage II, Cr 1.4 and GFR 39 today 5. Elevated sed rate but patient is on steroid therapy 6. Aortic insufficiency, severe on TTE. CARMEN postponed due to possibility of tuberculosis. Once patient's pulmonary status has improved then will reconsider transesophageal echocardiogram. Continue IV lasix and potassium supplementation. 7. Mild CAD by cath early 2020 8. GERD, on PPI Ordering Physician: Sue Feldman DO Date of Service: 03/05/22 Procedure(s): XR chest portable Accession Number(s): [id number] cc: Chuck Pineda MD; Zev Vance MD~ PROCEDURE INFORMATION: Exam: XR Chest Exam date and time: 03/05/2022 5:59 AM Age: 56 years old Clinical indication: Shortness of breath and other: Copd; Additional info: Copd SOB TECHNIQUE: Imaging protocol: XR of the chest. Views: 1 view. COMPARISON: CR XR CHEST PORTABLE 03/04/2022 11:45 AM FINDINGS: Lungs: Prominent lung markings/peribronchial thickening without definite evidence of consolidation. Patchy atelectasis and scarring in the lungs bilaterally. Pleural spaces: No evidence of pleural effusion or pneumothorax. Heart/Mediastinum: Heart size is normal, cental pulmonary vascular congestion. Bones/joints: NA IMPRESSION: Chronic cardiopulmonary changes without evidence of an active lung parenchymal lesion. Pulmonology consult:Assessment and plan all Dx Assessment and Plan for all problems:: # Acute hypoxic hypercarbic respiratory failure: # CAP: Ms.
[2022-03-12 10:37] VITALS: O2SAT 83
[2022-03-12 10:41] VITALS: O2SAT 90
--- NOTE | 2022-03-12 11:06 | CARE MANAGER ---
Demographics and order sent to [facility] per patient choice, they will bring her a concentrator for home use.
[2022-03-12 12:00] VITALS: BP 115/79; PULSE 132; RESP 18; TEMP 36.4; O2SAT 92
--- NOTE | 2022-03-12 15:33 | HMH.PHAINT ---
I spoke with the patient today about her medication list. Went over the new medications that were being sent in for the patient. Also reviewed the medications the patient was to continue on outpatient. When we spoke, the patient did not have any questions or concerns. Patient was provided a copy of the medication list.
--- NOTE | 2022-03-13 17:19 | CARE MANAGER ---
Spoke with patient post discharge and she states that she is doing well, she comes to outpatient to get her IV infusion twice daily. I did remind her of her follow-up appointments and she wrote down the times again. No further needs at this time.
== END 2022-03-12 16:06 | disposition home or self-care (01) | DRG 177 ==
LOC: ER 13:19 → 2ND 14:33
PROVIDERS: Internal Medicine Adolescent Medicine; Internal Medicine Pulmonary Disease; Nurse Practitioner Family; Physician Assistant; Admitting Provider Family Medicine; Emergency Provider Emergency Medicine; PCP Emergency Medicine; Visit Provider Emergency Medicine
DX: J15.6 Pneumonia due to other Gram-negative bacteria (principal); J96.01 Acute respiratory failure with hypoxia; J96.02 Acute respiratory failure with hypercapnia; J44.1 Chronic obstructive pulmonary disease with (acute) exacerbation; J44.0 Chronic obstructive pulmonary disease with (acute) lower respiratory infection; F17.210 Nicotine dependence, cigarettes, uncomplicated; Z95.5 Presence of coronary angioplasty implant and graft; F32.A Depression, unspecified; E78.5 Hyperlipidemia, unspecified; K21.9 Gastro-esophageal reflux disease without esophagitis; I65.29 Occlusion and stenosis of unspecified carotid artery; I25.10 Atherosclerotic heart disease of native coronary artery without angina pectoris; I08.3 Combined rheumatic disorders of mitral, aortic and tricuspid valves; B18.2 Chronic viral hepatitis C; I70.1 Atherosclerosis of renal artery; N18.2 Chronic kidney disease, stage 2 (mild); B37.9 Candidiasis, unspecified; F41.9 Anxiety disorder, unspecified
CPT/HCPCS: 36415; 36569; 71045; 71046; 71250; 80048; 80053; 80305; 81001; 82803; 82962; 83605; 83735; 83880; 84145; 84484; 85007; 85025; 85651; 86140; 87040; 87070; 87077; 87116; 87186; 87205; 87206; 87220; 93005; 93306; 93970; 94640; 94668; 94760; 94761; 96365; 96367; 96375; 99285; C1751; C9803; J0456; J0574; J0696; J2185; U0003; U0005

== ENCOUNTER 2022-03-13 09:10 | Outpatient (CLI) | payer OTHER, SELFPAY ==
[2022-03-13 10:46] VITALS: BP 124/74; PULSE 86; RESP 16; O2SAT 90
[2022-03-13 20:50] VITALS: BMI 23.9
[2022-03-13 20:52] VITALS: BP 112/55; PULSE 76; RESP 15; TEMP 36.6; O2SAT 88
[2022-03-13 21:52] VITALS: BP 114/56; PULSE 82; RESP 14; O2SAT 87
== END 2022-03-13 10:50 | disposition home or self-care (01) ==
LOC: INF 09:10
PROVIDERS: PCP Emergency Medicine; Visit Provider Family Medicine
DX: J96.91 Respiratory failure, unspecified with hypoxia (principal); B96.20 Unspecified Escherichia coli [E. coli] as the cause of diseases classified elsewhere; B96.1 Klebsiella pneumoniae [K. pneumoniae] as the cause of diseases classified elsewhere
CPT/HCPCS: 96365; J2185

== ENCOUNTER 2022-03-14 09:34 | Outpatient (CLI) | payer OTHER, SELFPAY ==
[2022-03-14 09:50] VITALS: BP 103/60; PULSE 80; RESP 18; TEMP 36.6; O2SAT 94
[2022-03-14 11:05] VITALS: BP 94/64; PULSE 78; RESP 18; O2SAT 93
== END 2022-03-14 11:05 | disposition home or self-care (01) ==
LOC: INF 09:35
PROVIDERS: PCP Family Medicine; Visit Provider Family Medicine
DX: J96.91 Respiratory failure, unspecified with hypoxia (principal); B96.20 Unspecified Escherichia coli [E. coli] as the cause of diseases classified elsewhere; B96.1 Klebsiella pneumoniae [K. pneumoniae] as the cause of diseases classified elsewhere; F17.210 Nicotine dependence, cigarettes, uncomplicated
CPT/HCPCS: 96365; J2185

== ENCOUNTER 2022-03-15 08:23 | Outpatient (CLI) | payer OTHER, SELFPAY ==
[2022-03-15 08:50] VITALS: BP 146/97; PULSE 84; RESP 18; O2SAT 90
[2022-03-15 09:50] VITALS: BP 116/74; PULSE 79; RESP 18; O2SAT 92
[2022-03-15 20:37] VITALS: BMI 23.9
[2022-03-15 20:40] VITALS: BP 168/80; PULSE 89; RESP 19; TEMP 36.9; O2SAT 95
[2022-03-15 21:50] VITALS: BP 166/84; PULSE 88; RESP 19; TEMP 36.8; O2SAT 93
== END 2022-03-15 21:50 | disposition home or self-care (01) ==
PROVIDERS: PCP Family Medicine; Visit Provider Family Medicine
DX: J96.91 Respiratory failure, unspecified with hypoxia (principal); B96.20 Unspecified Escherichia coli [E. coli] as the cause of diseases classified elsewhere; B96.1 Klebsiella pneumoniae [K. pneumoniae] as the cause of diseases classified elsewhere
CPT/HCPCS: 96365; J2185

== ENCOUNTER → 2022-03-16 08:59 | Outpatient (CLI) | payer OTHER, SELFPAY ==
[2022-03-16 09:30] VITALS: BP 103/55; PULSE 79; RESP 18; O2SAT 92
[2022-03-16 10:30] VITALS: BP 108/69; PULSE 72; RESP 16; O2SAT 94
[2022-03-16 21:18] VITALS: BP 125/78; PULSE 78; RESP 18; TEMP 36.8; O2SAT 97
[2022-03-16 22:01] VITALS: BP 132/77; PULSE 77; RESP 18; TEMP 36.8; O2SAT 97
== END ==
PROVIDERS: PCP Family Medicine; Visit Provider Family Medicine
DX: J96.91 Respiratory failure, unspecified with hypoxia (principal); B96.20 Unspecified Escherichia coli [E. coli] as the cause of diseases classified elsewhere; B96.1 Klebsiella pneumoniae [K. pneumoniae] as the cause of diseases classified elsewhere
CPT/HCPCS: 96365; J2185

== ENCOUNTER → 2022-03-17 20:16 | Outpatient (CLI) | payer OTHER, SELFPAY ==
[2022-03-17 20:48] VITALS: BMI 23.9
[2022-03-17 21:23] VITALS: BP 138/74; PULSE 69; RESP 18; TEMP 36.5; O2SAT 92
== END ==
PROVIDERS: PCP Emergency Medicine; Visit Provider Family Medicine
DX: J96.91 Respiratory failure, unspecified with hypoxia (principal); B96.20 Unspecified Escherichia coli [E. coli] as the cause of diseases classified elsewhere; B96.1 Klebsiella pneumoniae [K. pneumoniae] as the cause of diseases classified elsewhere
CPT/HCPCS: 96365; G0463; J2185

== ENCOUNTER → 2022-03-26 13:49 | Outpatient (CLI) | payer OTHER, SELFPAY ==
--- NOTE | 2022-03-26 13:50 | CA_ITS ---
FINAL REPORT CLINICAL HISTORY: KRYSTIN,SMOKER,HTN,HLD FINDINGS: An ultrasound of the carotid arteries was performed. Duplex Doppler evaluation with spectral analysis was performed. The peak systolic velocity of the right common carotid artery is 86 cm/s. The peak systolic velocity of the right internal carotid artery is 113 cm/s and end diastolic velocity 46 cm/s. A small amount of plaque is present. The right external carotid artery is patent. The right vertebral artery is patent with antegrade flow. ICA/CCA ratio: 1.6 The peak systolic velocity of the left common carotid artery is 110 cm/s. The peak systolic velocity of the left internal carotid artery is 150 cm/s and end diastolic velocity 36 cm/s. A small amount of plaque is present. The left external carotid artery is patent. The left vertebral artery is patent with antegrade flow. ICA/CCA ratio: 1.4 IMPRESSION: Less than 50% bilateral carotid stenoses. Bilateral patent vertebral arteries with antegrade flow. Reviewed, Interpreted and Dictated by Nik Aguero MD Transcribed by Arturo Hilliard Authenticated by Nik Aguero MD on 03/26/2022 04:32:[address] [facility]
== END ==
PROVIDERS: PCP Emergency Medicine; Visit Provider Physician Assistant
DX: I65.23 Occlusion and stenosis of bilateral carotid arteries (principal); I10 Essential (primary) hypertension; E78.2 Mixed hyperlipidemia; I25.10 Atherosclerotic heart disease of native coronary artery without angina pectoris; R06.09 Other forms of dyspnea; R42 Dizziness and giddiness
CPT/HCPCS: 93880; 94762

== ENCOUNTER 2022-04-29 09:10 | Emergency (ER) | payer OTHER, SELFPAY ==
[2022-04-29 09:40] VITALS: BP 128/77; PULSE 80; RESP 18; TEMP 36.8; O2SAT 95; BMI 23.8
--- NOTE | 2022-04-29 09:48 | HMH.EDUTC ---
[facility] Disposition Clinical Impression: COVID-19, COPD exacerbation COPD (chronic obstructive pulmonary disease) Qualifiers: COPD type: COPD with acute exacerbation Qualified Code(s): J44.1 - Chronic obstructive pulmonary disease with (acute) exacerbation Disposition: Home, Self-Care Condition on Discharge: Fair Instructions: DI for Chronic Obstructive Pulmonary Disease, DI for COVID-19 (Suspected or Confirmed ) Additional Instructions: She is positive for COVID, it is important to quarantine. Return to the emergency department for any new or concerning symptoms, if you are having increased difficulty with breathing. Continue taking nebulizations at home. I am also prescribing you with an antibiotic. You may follow-up with Dr. Pineda, call early next week to make an appointment. Prescriptions: Azithromycin [Z-Yordan 250mg Tab*] 250 mg PO UD DOSE PK #6 tab Transmission Status: Received by [facility] Azithromycin [Z-Yordan 250mg Tab*] 250 mg PO UD DOSE PK #6 tab Referrals: Chuck Pineda MD [Primary Care Provider] - Medical Decision Making - Berry Inquiry Pt receiving controlled substance: No Berry was queried for this patient: No Vital Signs: 04/29/22 09:40 04/29/22 10:21 04/29/22 10:45 Temperature 98.3 F 97.9 F Temperature Source Oral Oral Pulse Rate Pulse Rate [Right Brachial] 80 79 82 Respiratory Rate 18 18 27 H Blood Pressure Blood Pressure [Right Arm] 128/77 141/83 H 147/76 H Blood Pressure Mean [Right Arm] 94 102 99 Blood Pressure Source [Right Arm] Automatic Cuff Automatic Cuff Automatic Cuff Blood Pressure Position [Right Arm] Sitting Sitting Sitting 02 Sat by Pulse Oximetry 95 95 97 Oxygen Delivery Method Room Air Room Air Room Air 04/29/22 12:27 Temperature 98.3 F Temperature Source Pulse Rate 82 Pulse Rate [Right Brachial] Respiratory Rate 20 Blood Pressure 147/76 H Blood Pressure [Right Arm] Blood Pressure Mean [Right Arm] Blood Pressure Source [Right Arm] Blood Pressure Position [Right Arm] 02 Sat by Pulse Oximetry Oxygen Delivery Method Room Air - Lab Data Lab Results 04/29/22 10:00: SARS-CoV-2 (PCR) Detected A, Influenza A Untype (PCR) Not detected, Influenza Type B (PCR) Not detected 04/29/22 10:50: WBC 5.0, RBC 3.92 L, Hgb 10.8 L, Hct 33.6 L, MCV 85.6, MCH 27.6, MCHC 32.3, RDW 17.1, Plt Count 193, MPV 8.8, Neut % (Auto) 51.7, Lymph % (Auto) 36.6, [place] % (Auto) 6.4, Eos % (Auto) 3.8, Baso % (Auto) 1.5, Neut # (Auto) 2.6, Lymph # (Auto) 1.8, [place] # (Auto) 0.3, Eos # (Auto) 0.2, Baso # (Auto) 0.1 04/29/22 10:50: Sodium 141, Potassium 3.7, Chloride 112 H, Carbon Dioxide 20 L, Anion Gap 12.7, BUN 12, Creatinine 1.30 H, Estimated Creat Clear 46, Estimated GFR 43 L, Est GFR ( Amer) 51 L, Glucose 89, Calcium 9.2, Total Bilirubin 0.2, AST 26, ALT 11 L, Alkaline Phosphatase 104, Troponin I < 0.01, Total Protein 7.5, Albumin 3.9, Globulin 3.6 H, Albumin/Globulin Ratio 1.1 Result diagrams: 04/29/22 10:50 04/29/22 10:50 Orders (Tests/Meds): ED MEDICATIONS Discontinued Medications Generic Name Dose Route Start Last Admin Trade Name Freq PRN Reason Stop Dose Admin Methylprednisolone Sodium Succinate 125 mg 04/29/22 10:21 04/29/22 11:02 Methylprednisolone Sod Succ 125mg Vial IV 04/29/22 10:22 125 mg ONCE ONE Administration Medical Decision Narrative: due to recent admission to hospital and patient complaining of SOA with walking short distances and feeling off in her head and stumbling which she states is not her normal discussed with patient and recommended transfer to the ED for further work up and evaluation and patient agreed Called ED spoke with Imani RN and patient was moved to room 5 [facility] HPI - General Stated complaint: SOB Time Seen by Provider: 04/29/22 09:48 Mode of Arrival: Ambulatory Source of Information: Patient Limitations: No Limitations Description of Symptoms (Recalled from Triage Doc. by RN): CURTIS
--- NOTE | 2022-04-29 09:49 | PC.NURSE ---
PATIENT SENT TO ER PER Laya SIMONS APRN FOR FURTHER EVALUATION. REPORT GIVEN TO Hao WILLARD RN BY Laya SIMONS APRN
--- NOTE | 2022-04-29 09:55 | ECG_ITS ---
APPROVED REPORT Exam: Resting ECG HR:78 bpm ECG Measurements Heart Rate 78 AXES VA 156 P 67 QRSd 89 QRS 66 QT 372 T 74 QTc 405 Conclusion SINUS RHYTHM NORMAL ECG UNCONFIRMED REPORT Electronically signed by : Evaristo Gonzalez MD 04/30/2022 09:40:34
--- NOTE | 2022-04-29 09:57 | PC.NURSE ---
Imani Christie, RN at
--- NOTE | 2022-04-29 10:00 | PC.NURSE ---
covid swab sent to lab; friend at [facility]
[2022-04-29 10:08] LABS: Influenza A, PCR Not Detected (NotDetected); Influenza B, PCR Not Detected (NotDetected)
--- NOTE | 2022-04-29 10:20 | XR_ITS ---
PROCEDURE INFORMATION: Exam: XR Chest Exam date and time: 04/29/2022 10:38 AM Age: 56 years old Clinical indication: Shortness of breath; Additional info: SOA TECHNIQUE: Imaging protocol: XR of the chest. Views: 1 view. COMPARISON: CT CHEST WO CON 04/29/2022 10:32 AM FINDINGS: Lungs: Unremarkable. No consolidation. Pleural spaces: Unremarkable. No pleural effusion. No pneumothorax. Heart/Mediastinum: Unremarkable. No cardiomegaly. Bones/joints: Unremarkable. IMPRESSION: No acute findings.
[2022-04-29 10:21] VITALS: BP 141/83; PULSE 79; RESP 18; TEMP 36.6; O2SAT 95; BMI 23.8
--- NOTE | 2022-04-29 10:21 | CT_ITS ---
PROCEDURE INFORMATION: Exam: CT Chest Without Contrast; Diagnostic Exam date and time: 04/29/2022 10:32 AM Age: 56 years old Clinical indication: Shortness of breath; Additional info: SOA TECHNIQUE: Imaging protocol: Diagnostic computed tomography of the chest without contrast. Radiation optimization: All CT scans at this facility use at least one of these dose optimization techniques: automated exposure control; mA and/or kV adjustment per patient size (includes targeted exams where dose is matched to clinical indication); or iterative reconstruction. COMPARISON: CT CHEST WO CON 03/07/2022 10:55 AM FINDINGS: Lungs: Interval resolution of previously seen ground-glass densities bilaterally. Continued areas of bronchial wall thickening, suggesting bronchitis. No focal consolidation. Pleural spaces: Unremarkable. No pneumothorax. No pleural effusion. Heart: Unremarkable. No cardiomegaly. No pericardial effusion. Lymph nodes: Unremarkable. No enlarged lymph nodes. Vasculature: Unremarkable. No aortic aneurysm. Bones/joints: Unremarkable. No acute fracture. Soft tissues: Unremarkable. IMPRESSION: 1. Interval resolution of previously seen ground-glass densities bilaterally. Continued areas of bronchial wall thickening, suggesting bronchitis. 2. No focal consolidation.
--- NOTE | 2022-04-29 10:24 | HMH.EDGENADL ---
ED Disposition Clinical Impression: COVID-19, COPD exacerbation COPD (chronic obstructive pulmonary disease) Qualifiers: COPD type: COPD with acute exacerbation Qualified Code(s): J44.1 - Chronic obstructive pulmonary disease with (acute) exacerbation Disposition: Home, Self-Care Condition on Discharge: Good Instructions: DI for Chronic Obstructive Pulmonary Disease, DI for COVID-19 (Suspected or Confirmed ) Additional Instructions: She is positive for COVID, it is important to quarantine. Return to the emergency department for any new or concerning symptoms, if you are having increased difficulty with breathing. Continue taking nebulizations at home. I am also prescribing you with an antibiotic. You may follow-up with Dr. Pineda, call early next week to make an appointment. Prescriptions: Azithromycin [Z-Yordan 250mg Tab*] 250 mg PO UD DOSE PK #6 tab Transmission Status: Pending to [facility] Azithromycin [Z-Yordan 250mg Tab*] 250 mg PO UD DOSE PK #6 tab Referrals: Chuck Pineda MD [Primary Care Provider] - - Critical Care Critical Care Time: No Attestation: On 04/29/22, the high probability of a clinically significant, sudden or life threatening deterioration of the following system(s) required my full and direct attention, intervention and personal management. The time I documented below is in addition to time spent performing reported procedures but includes the following listed in this critical care notation. Medical Decision Making - Medical Records Medical records reviewed: Yes: I reviewed the patient's medical records. - Berry Inquiry Pt receiving controlled substance: No Vital Signs: 04/29/22 09:40 04/29/22 10:21 04/29/22 10:45 Temperature 98.3 F 97.9 F Temperature Source Oral Oral Pulse Rate [Right Brachial] 80 79 82 Respiratory Rate 18 18 27 H Blood Pressure [Right Arm] 128/77 141/83 H 147/76 H Blood Pressure Mean [Right Arm] 94 102 99 Blood Pressure Source [Right Arm] Automatic Cuff Automatic Cuff Automatic Cuff Blood Pressure Position [Right Arm] Sitting Sitting Sitting 02 Sat by Pulse Oximetry 95 95 97 Oxygen Delivery Method Room Air Room Air Room Air - Lab Data Lab results reviewed: Yes: I reviewed the patient's lab results. Lab Results 04/29/22 10:00: SARS-CoV-2 (PCR) Detected A, Influenza A Untype (PCR) Not detected, Influenza Type B (PCR) Not detected 04/29/22 10:50: WBC 5.0, RBC 3.92 L, Hgb 10.8 L, Hct 33.6 L, MCV 85.6, MCH 27.6, MCHC 32.3, RDW 17.1, Plt Count 193, MPV 8.8, Neut % (Auto) 51.7, Lymph % (Auto) 36.6, [place] % (Auto) 6.4, Eos % (Auto) 3.8, Baso % (Auto) 1.5, Neut # (Auto) 2.6, Lymph # (Auto) 1.8, [place] # (Auto) 0.3, Eos # (Auto) 0.2, Baso # (Auto) 0.1 04/29/22 10:50: Sodium 141, Potassium 3.7, Chloride 112 H, Carbon Dioxide 20 L, Anion Gap 12.7, BUN 12, Creatinine 1.30 H, Estimated Creat Clear 46, Estimated GFR 43 L, Est GFR ( Amer) 51 L, Glucose 89, Calcium 9.2, Total Bilirubin 0.2, AST 26, ALT 11 L, Alkaline Phosphatase 104, Troponin I < 0.01, Total Protein 7.5, Albumin 3.9, Globulin 3.6 H, Albumin/Globulin Ratio 1.1 Result diagrams: 04/29/22 10:50 04/29/22 10:50 Orders (Tests/Meds): ED MEDICATIONS Discontinued Medications Generic Name Dose Route Start Last Admin Trade Name Freq PRN Reason Stop Dose Admin Methylprednisolone Sodium Succinate 125 mg 04/29/22 10:21 04/29/22 11:02 Methylprednisolone Sod Succ 125mg Vial IV 04/29/22 10:22 125 mg ONCE ONE Administration ORDERS Category Date Time Status Troponin I Q3H Lab 04/29/22 13:30 Ordered Troponin I Q3H Lab 04/29/22 16:30 Ordered - CT Data ED CT Reviewed: Yes: I have reviewed the patient's CT results Medical Decision Narrative: Patient is a 56-year-old female presenting to the emergency department with chief complaint of respiratory distress, increased sputum. Frontal diagnosis for this patient includes URI, COVID-19, influenza, COPD exacerbation, pneumoni
--- NOTE | 2022-04-29 10:34 | PC.NURSE ---
pt to radiology
[2022-04-29 10:42] LABS: Coronavirus 19, PCR Detected (NotDetected)
[2022-04-29 10:45] VITALS: BP 147/76; PULSE 82; RESP 27; O2SAT 94; O2SAT 97
[2022-04-29 11:09] LABS: Basophils # 0.1 K/mm3 (0-0.2); Basophils % 1.5 % (0.1-2.0); Eosinophils # 0.2 K/mm3 (0.0-0.4); Eosinophils % 3.8 % (0.1-12.0); Hematocrit 33.6 % (37.0-47.0); Hemoglobin 10.8 g/dL (12.2-16.2); Lymphocytes # 1.8 K/mm3 (0.7-4.5); Lymphocytes % 36.6 % (10-50); Mean Corpuscular HGB Conc 32.3 g/dL (31.8-35.4); Mean Corpuscular Hemoglobin 27.6 pg (27.0-31.2); Mean Corpuscular Volume 85.6 fl (81-99); Mean Platelet Volume 8.8 fl (7.4-10.4); Monocytes # 0.3 K/mm3 (0.1-1.0); Monocytes % 6.4 % (1.7-9.3); Neutrophils # 2.6 K/mm3 (1.8-7.8); Neutrophils % 51.7 % (37.0-80.0); Platelet Count 193 K/mm3 (142-424); Red Blood Count 3.92 M/mm3 (4.20-5.40); Red Cell Distribution Width 17.1 % (11.5-17.5)
[2022-04-29 11:15] LABS: Chloride 112 mmol/L (98-107); Potassium 3.7 mmoL/L (3.5-5.1); Sodium 141 mmol/L (136-145)
[2022-04-29 11:18] LABS: Alanine Aminotransferase 11 U/L (12-78); Alkaline Phosphatase 104 U/L (38-126); Aspartate Amino Transferase 26 U/L (14-36); Bilirubin,Total 0.2 mg/dl (0.2-1.3); Blood Urea Nitrogen 12 mg/dl (7-17); Creatinine Clearance Estimated 46 mL/min (50-200); Estimated Glomerular Filt Rate 43 ml/min (>60); GFR (African American) 51 ML/MIN (>60)
[2022-04-29 11:19] LABS: Albumin Level 3.9 g/dl (3.5-5.0); Albumin/Globulin Ratio 1.1 (1.1-1.8); Anion Gap 12.7 mEq/L (5-15); Calcium 9.2 mg/dl (8.4-10.2); Carbon Dioxide 20 mmol/L (22.0-30.0); Globulin 3.6 g/dL (1.3-3.2); Glucose 89 mg/dl (74-100); Total Protein,Serum 7.5 g/dl (6.3-8.2)
--- NOTE | 2022-04-29 11:37 | PC.NURSE ---
ordered meal tray for pt
[2022-04-29 11:43] LABS: Troponin I < 0.01 ng/ml (0.00-0.034)
--- NOTE | 2022-04-29 11:48 | PC.NURSE ---
dietary tray ordered for patient; she is sitting up on side of the bed eating; friend at [facility]
[2022-04-29 12:27] VITALS: BP 147/76; PULSE 82; RESP 20; TEMP 36.8; O2SAT 97
== END 2022-04-29 12:30 | disposition home or self-care (01) ==
LOC: UTC 09:16 → ER 09:49
PROVIDERS: Emergency Provider Emergency Medicine; PCP Emergency Medicine
DX: U07.1 COVID-19 (principal); J44.1 Chronic obstructive pulmonary disease with (acute) exacerbation; I25.10 Atherosclerotic heart disease of native coronary artery without angina pectoris; Z72.0 Tobacco use; Z79.899 Other long term (current) drug therapy
CPT/HCPCS: 36415; 71045; 71250; 80053; 84484; 85025; 93005; 96374; 99284; C9803; U0003; U0005

== ENCOUNTER 2022-04-30 06:43 | Emergency (ER) | payer OTHER, SELFPAY ==
[2022-04-30 06:27] VITALS: BP 106/68; PULSE 93; RESP 22; TEMP 36.6; O2SAT 96; BMI 20.5
[2022-04-30 06:47] LABS: Basophils % 0.7 % (0.1-2.0); Eosinophils % 0.1 % (0.1-12.0); Hematocrit 30.4 % (37.0-47.0); Hemoglobin 9.8 g/dL (12.2-16.2); Lymphocytes # 1.1 K/mm3 (0.7-4.5); Lymphocytes % 19.5 % (10-50); Mean Corpuscular HGB Conc 32.4 g/dL (31.8-35.4); Mean Corpuscular Hemoglobin 27.6 pg (27.0-31.2); Mean Corpuscular Volume 85.3 fl (81-99); Mean Platelet Volume 9.3 fl (7.4-10.4); Monocytes # 0.3 K/mm3 (0.1-1.0); Monocytes % 4.3 % (1.7-9.3); Neutrophils # 4.4 K/mm3 (1.8-7.8); Neutrophils % 75.3 % (37.0-80.0); Platelet Count 227 K/mm3 (142-424); Red Blood Count 3.56 M/mm3 (4.20-5.40); Red Cell Distribution Width 17.3 % (11.5-17.5); White Blood Count 5.8 K/mm3 (4.8-10.8)
[2022-04-30 07:00] VITALS: BP 99/62; PULSE 94; RESP 22; O2SAT 94
[2022-04-30 07:02] LABS: Blood Urea Nitrogen 12 mg/dl (7-17); Calcium 8.5 mg/dl (8.4-10.2); Carbon Dioxide 18 mmol/L (22.0-30.0); Chloride 112 mmol/L (98-107); Creatinine Clearance Estimated 50 mL/min (50-200); Estimated Glomerular Filt Rate 52 ml/min (>60); GFR (African American) 62 ML/MIN (>60); Glucose 162 mg/dl (74-100); Sodium 140 mmol/L (136-145)
[2022-04-30 07:02] LABS: ABG Base Excess -8.4 mmol/L (-2.4-2.3); ABG HCO3 17.3 mmhg (22.0-26.0); ABG Oxygen Saturation 93 % (90-100); ABG PCO2 32.4 mmhg (35.0-45.0); ABG PH 7.35 mmol/L (7.35-7.45); ABG PO2 68.6 mmhg (80-100); ABG TCO2 18.3 mmhg (23-27)
[2022-04-30 07:03] LABS: Anion Gap 13.9 mEq/L (5-15); Magnesium 1.5 mg/dl (1.6-2.3); Potassium 3.9 mmoL/L (3.5-5.1)
[2022-04-30 07:03] LABS: Allen's Test Acceptable
--- NOTE | 2022-04-30 07:03 | ECG_ITS ---
APPROVED REPORT Exam: Resting ECG HR:91 bpm ECG Measurements Heart Rate 91 AXES OK 148 P 74 QRSd 85 QRS 70 QT 362 T 70 QTc 411 Conclusion SINUS RHYTHM NORMAL ECG UNCONFIRMED REPORT Electronically signed by : Evaristo Gonzalez MD 04/30/2022 21:35:57
[2022-04-30 07:04] LABS: Source Right Radial
--- NOTE | 2022-04-30 07:05 | HMH.EDSOB ---
ED Disposition Clinical Impression: COVID-19, Acute exacerbation of chronic obstructive airways disease Disposition: Home, Self-Care Condition on Discharge: Good Instructions: DI for COVID-19 (Suspected or Confirmed ) Additional Instructions: use meds and see pcp for follow up Prescriptions: dexAMETHasone [Decadron] 6 mg PO DAILY #7 tab Transmission Status: Pending to [facility] Referrals: Chuck Pineda MD [Primary Care Provider] - - Critical Care Critical Care Time: No Attestation: On 04/30/22, the high probability of a clinically significant, sudden or life threatening deterioration of the following system(s) required my full and direct attention, intervention and personal management. The time I documented below is in addition to time spent performing reported procedures but includes the following listed in this critical care notation. Medical Decision Making - Medical Records Medical records reviewed: Yes: I reviewed the patient's medical records. - Berry Inquiry Pt receiving controlled substance: No Vital Signs: 04/30/22 06:27 04/30/22 07:00 Temperature 97.9 F Temperature Source Oral Pulse Rate 94 H Pulse Rate [Apical] 93 H Respiratory Rate 22 22 Blood Pressure 99/62 L Blood Pressure [Right Arm] 106/68 L Blood Pressure Mean 73 Blood Pressure Mean [Right Arm] 80 Blood Pressure Source [Right Arm] Automatic Cuff Blood Pressure Position [Right Arm] Sitting 02 Sat by Pulse Oximetry 96 94 L Oxygen Delivery Method Nasal Cannula Nasal Cannula Oxygen Flow Rate (LPM) 3 3 - Lab Data Lab results reviewed: Yes: I reviewed the patient's lab results. Lab Results 04/30/22 06:30: WBC 5.8, RBC 3.56 L, Hgb 9.8 L, Hct 30.4 L, MCV 85.3, MCH 27.6, MCHC 32.4, RDW 17.3, Plt Count 227, MPV 9.3, Neut % (Auto) 75.3, Lymph % (Auto) 19.5, [place] % (Auto) 4.3, Eos % (Auto) 0.1, Baso % (Auto) 0.7, Neut # (Auto) 4.4, Lymph # (Auto) 1.1, [place] # (Auto) 0.3, Eos # (Auto) 0.0, Baso # (Auto) 0.0, ESR > 140 H 04/30/22 06:30: Sodium 140, Potassium 3.9, Chloride 112 H, Carbon Dioxide 18 L, Anion Gap 13.9, BUN 12, Creatinine 1.10 H, Estimated Creat Clear 50, Estimated GFR 52 L, Est GFR ( Amer) 62 D, Glucose 162 H D, Calcium 8.5, C-Reactive Protein 21.2 H 04/30/22 06:30: Magnesium 1.5 L, Troponin I < 0.01, Procalcitonin 0.064 04/30/22 06:30: Lactate 1.8 04/30/22 06:44: Specimen Source Right radial, O2 % 3lpm nc, ABG pH 7.35, ABG pCO2 32.4 L, ABG pO2 68.6 L, ABG HCO3 17.3 L, ABG Total CO2 18.3 L, ABG O2 Saturation 93, ABG Base Excess -8.4 L, Rohan Test Acceptable Result diagrams: 04/30/22 06:30 04/30/22 06:30 Orders (Tests/Meds): ORDERS Category Date Time Status Troponin I Q3H Lab 04/30/22 09:30 Ordered Troponin I Q3H Lab 04/30/22 12:30 Ordered UA [Urinalysis and Microscopic] Stat Lab 04/30/22 08:11 Received Blood Culture Stat Micro 04/30/22 06:30 Received - ECG Data Tracing #1 Normal Sinus Rhythm: Yes Ischemic changes: non-specific ST-T wave changes Medical Decision Narrative: has acute exacerbation of copd and has covid-19 - but stable exam Resp/SOB HPI - General Chief Complaint: Shortness of Breath/Dyspnea Stated Complaint: COVID, SOA, Dyspnea Time Seen by Provider: 04/30/22 07:05 Mode of Arrival: EMS Source of Information: Patient, EMS, Medical Record Limitations: No Limitations Description of Symptoms (Recalled from ER Triage Doc. by RN): Per patient, she was seen in hospital for prior two days for soa. states she has been up all night with soa. Denies any cp, fever. Does have a productive cough with green phlegm. - History of Present Illness cough with sputum - no fever - had recent ed visit for same MD Complaint: shortness of breath, cough Onset (ago): day(s) Context: recent illness Severity: moderate Known history of: COPD Treatment prior to arrival: oxygen - Related Data Home oxygen amount: 3 liters Home Medications Medication Instructions Ga
[2022-04-30 07:08] LABS: C-Reactive Protein 21.2 mg/L (0-4)
[2022-04-30 07:11] LABS: Erythrocyte Sedimentation Rate > 140 mm/hr (0-30)
[2022-04-30 07:19] LABS: Troponin I < 0.01 ng/ml (0.00-0.034)
[2022-04-30 07:22] LABS: Procalcitonin 0.064 ng/mL (0.0-2.0)
--- NOTE | 2022-04-30 08:01 | PC.NURSE ---
namrata vivar at assisting pt at this time
[2022-04-30 08:31] LABS: Lactic Acid 1.8 mmol/L (0.7-2.1)
[2022-04-30 09:06] LABS: Microscopic, Urine URINE MICROSCOPIC (MICROSCOPIC)
[2022-04-30 09:08] LABS: Appearance,Urine CLEAR (Clear); Bilirubin,Urine Negative (Negative); Blood, Urine Negative (Negative); Color,Urine YELLOW (Yellow); Glucose,Urine (UA) Negative (Negative); Ketones,Urine Negative (Negative); Leukocyte Esterase,Urine TRACE (Negative); Nitrate,Urine Negative (Negative); Protein,Urine Negative (Negative); Specific Gravity, Urine 1.015 (1.005-1.030); Urobilinogen,Urine 0.2 EU/dl (0.2)
[2022-04-30 09:27] LABS: Bacteria,Urine Trace /lpf
[2022-04-30 09:33] VITALS: BP 132/78; PULSE 74; RESP 22; TEMP 36.6; O2SAT 98
== END 2022-04-30 09:35 | disposition home or self-care (01) ==
PROVIDERS: Emergency Provider Emergency Medicine; PCP Emergency Medicine
DX: J44.1 Chronic obstructive pulmonary disease with (acute) exacerbation (principal); U07.1 COVID-19; I11.0 Hypertensive heart disease with heart failure; I50.9 Heart failure, unspecified; I25.10 Atherosclerotic heart disease of native coronary artery without angina pectoris; I35.1 Nonrheumatic aortic (valve) insufficiency; E78.5 Hyperlipidemia, unspecified; M54.9 Dorsalgia, unspecified; J98.4 Other disorders of lung; G47.00 Insomnia, unspecified; B19.20 Unspecified viral hepatitis C without hepatic coma; K44.9 Diaphragmatic hernia without obstruction or gangrene; M81.0 Age-related osteoporosis without current pathological fracture; F17.210 Nicotine dependence, cigarettes, uncomplicated; F32.A Depression, unspecified; F41.9 Anxiety disorder, unspecified; Z79.51 Long term (current) use of inhaled steroids; Z79.82 Long term (current) use of aspirin; Z79.890 Hormone replacement therapy; Z79.899 Other long term (current) drug therapy; Z88.5 Allergy status to narcotic agent; Z88.6 Allergy status to analgesic agent; Z88.8 Allergy status to other drugs, medicaments and biological substances; Z82.49 Family history of ischemic heart disease and other diseases of the circulatory system
CPT/HCPCS: 80048; 81001; 82803; 83605; 83735; 84145; 84484; 85025; 85651; 86140; 87040; 87077; 87186; 93005; 96374; 96375; 99285

== ENCOUNTER 2022-05-01 21:52 | Observation (INO) | payer OTHER, SELFPAY ==
[2022-05-01] VITALS (12 sets, daily range): BP systolic 112–136; BP diastolic 67–85; PULSE 77–86; RESP 22–26; TEMP 36.4–36.8; O2SAT 94–98; BMI 23.8; BMI 23.2
--- NOTE | 2022-05-01 21:59 | ECG_ITS ---
APPROVED REPORT Exam: Resting ECG HR:78 bpm ECG Measurements Heart Rate 78 AXES NM 141 P 72 QRSd 81 QRS 64 QT 367 T 72 QTc 400 Conclusion SINUS RHYTHM NORMAL ECG UNCONFIRMED REPORT Electronically signed by : Evaristo Gonzalez MD 05/02/2022 08:21:38
--- NOTE | 2022-05-01 22:02 | XR_ITS ---
PROCEDURE INFORMATION: Exam: XR Chest Exam date and time: 05/01/2022 10:03 PM Age: 56 years old Clinical indication: Patient HX: Severe shortness of breath, 3rd visit to er this week patient stated. Pack a day smoker she also stated. ; Additional info: Chest pain TECHNIQUE: Imaging protocol: XR of the chest. Views: 2 views. COMPARISON: CR XR CHEST PORTABLE 04/29/2022 10:38 AM FINDINGS: Lungs: Faint infiltrates are seen at both lung bases. Pleural spaces: Unremarkable. No pleural effusion. No pneumothorax. Heart/Mediastinum: Unremarkable. No cardiomegaly. Bones/joints: Unremarkable. IMPRESSION: Bibasilar infiltrates may represent pneumonia.
--- NOTE | 2022-05-01 22:15 | XR_ITS ---
PROCEDURE INFORMATION: Exam: XR Right Humerus Exam date and time: 05/01/2022 10:24 PM Age: 56 years old Clinical indication: Injury or trauma; Fall; Blunt trauma (contusions or hematomas); Arm, upper; Right TECHNIQUE: Imaging protocol: XR Right humerus. Views: 2 or more views. COMPARISON: CR XR HUMERUS RT 10/07/2020 1:26 PM FINDINGS: Bones/joints: No acute fracture or dislocation. Normal bone mineralization. Soft tissues: Normal. IMPRESSION: No acute findings.
[2022-05-01 22:22] LABS: ABG Base Excess -8.6 mmol/L (-2.4-2.3); ABG HCO3 17.4 mmhg (22.0-26.0); ABG Oxygen Saturation 96 % (90-100); ABG PCO2 33.6 mmhg (35.0-45.0); ABG PH 7.33 mmol/L (7.35-7.45); ABG PO2 89.1 mmhg (80-100); ABG TCO2 18.4 mmhg (23-27)
[2022-05-01 22:23] LABS: Allen's Test Acceptable; Source Right Radial
[2022-05-01 22:44] LABS: Chloride 111 mmol/L (98-107); Sodium 140 mmol/L (136-145)
[2022-05-01 22:47] LABS: Alanine Aminotransferase 17 U/L (12-78); Albumin Level 3.9 g/dl (3.5-5.0); Albumin/Globulin Ratio 1.1 (1.1-1.8); Alkaline Phosphatase 98 U/L (38-126); Aspartate Amino Transferase 50 U/L (14-36); Bilirubin,Total 0.3 mg/dl (0.2-1.3); Blood Urea Nitrogen 15 mg/dl (7-17); Calcium 9.1 mg/dl (8.4-10.2); Carbon Dioxide 19 mmol/L (22.0-30.0); Creatinine Clearance Estimated 49 mL/min (50-200); Estimated Glomerular Filt Rate 47 ml/min (>60); GFR (African American) 56 ML/MIN (>60); Globulin 3.6 g/dL (1.3-3.2); Glucose 116 mg/dl (74-100); Total Protein,Serum 7.5 g/dl (6.3-8.2)
[2022-05-01 22:48] LABS: Lactic Acid 1.3 mmol/L (0.7-2.1)
[2022-05-01 22:49] LABS: Influenza A, PCR Not Detected (NotDetected); Influenza B, PCR Not Detected (NotDetected)
--- NOTE | 2022-05-01 22:49 | HMH.EDSOB ---
ED Disposition Clinical Impression: COVID-19, Acute exacerbation of chronic obstructive airways disease, Tobacco abuse, Anxiety Anemia Qualifiers: Anemia type: unspecified type Qualified Code(s): D64.9 - Anemia, unspecified Disposition: Admitted As Inpatient Condition on Discharge: Fair - Critical Care Critical Care Time: No Attestation: On 05/01/22, the high probability of a clinically significant, sudden or life threatening deterioration of the following system(s) required my full and direct attention, intervention and personal management. The time I documented below is in addition to time spent performing reported procedures but includes the following listed in this critical care notation. Medical Decision Making - Medical Records Medical records reviewed: Yes: I reviewed the patient's medical records. - Berry Inquiry Pt receiving controlled substance: No Vital Signs: 05/01/22 21:53 05/01/22 22:34 05/01/22 22:35 Temperature 97.5 F L Temperature Source Oral Pulse Rate 86 85 Pulse Rate [Left Radial] 78 Respiratory Rate 26 H Blood Pressure Blood Pressure [Right Arm] 122/75 Blood Pressure Mean Blood Pressure Mean [Right Arm] 90 Blood Pressure Source [Right Arm] Automatic Cuff Blood Pressure Position Blood Pressure Position [Right Arm] Sitting 02 Sat by Pulse Oximetry 95 Oxygen Delivery Method Nasal Cannula Oxygen Flow Rate (LPM) 3 05/01/22 22:38 05/01/22 22:49 05/01/22 22:59 Temperature Temperature Source Pulse Rate 83 79 83 Pulse Rate [Left Radial] Respiratory Rate Blood Pressure 115/85 124/74 126/83 Blood Pressure [Right Arm] Blood Pressure Mean 94 101 92 Blood Pressure Mean [Right Arm] Blood Pressure Source [Right Arm] Blood Pressure Position Blood Pressure Position [Right Arm] 02 Sat by Pulse Oximetry 97 97 96 Oxygen Delivery Method Nasal Cannula Nasal Cannula Oxygen Flow Rate (LPM) 3 3 05/01/22 23:16 05/01/22 23:18 05/01/22 23:29 Temperature Temperature Source Pulse Rate 83 82 82 Pulse Rate [Left Radial] Respiratory Rate Blood Pressure 136/79 120/74 121/74 Blood Pressure [Right Arm] Blood Pressure Mean 96 88 87 Blood Pressure Mean [Right Arm] Blood Pressure Source [Right Arm] Blood Pressure Position Blood Pressure Position [Right Arm] 02 Sat by Pulse Oximetry 98 98 98 Oxygen Delivery Method Oxygen Flow Rate (LPM) 05/01/22 23:38 05/01/22 23:48 05/01/22 23:52 Temperature 98.2 F Temperature Source Oral Pulse Rate 83 79 77 Pulse Rate [Left Radial] Respiratory Rate 22 Blood Pressure 112/73 113/67 121/73 Blood Pressure [Right Arm] Blood Pressure Mean 91 Blood Pressure Mean [Right Arm] Blood Pressure Source [Right Arm] Blood Pressure Position Sitting Blood Pressure Position [Right Arm] 02 Sat by Pulse Oximetry 96 97 Oxygen Delivery Method Nasal Cannula Nasal Cannula Oxygen Flow Rate (LPM) 3 3 - Lab Data Lab results reviewed: Yes: I reviewed the patient's lab results. Lab Results 05/01/22 21:59: WBC 8.6 D, RBC 3.61 L, Hgb 9.9 L, Hct 30.0 L, MCV 83.2, MCH 27.4, MCHC 32.9, RDW 17.3, Plt Count 276, MPV 9.1, Neut % (Auto) 84.6 H, Lymph % (Auto) 10.3, [place] % (Auto) 4.3, Eos % (Auto) 0.3, Baso % (Auto) 0.6, Neut # (Auto) 7.2, Lymph # (Auto) 0.9, [place] # (Auto) 0.4, Eos # (Auto) 0.0, Baso # (Auto) 0.1, ESR > 140 H 05/01/22 21:59: Sodium 140, Potassium 4.0, Chloride 111 H, Carbon Dioxide 19 L, Anion Gap 14.0, BUN 15, Creatinine 1.20 H, Estimated Creat Clear 49, Estimated GFR 47 L, Est GFR ( Amer) 56 L, Glucose 116 H, Calcium 9.1, Total Bilirubin 0.3, AST 50 H D, ALT 17 D, Alkaline Phosphatase 98, Troponin I < 0.01, C-Reactive Protein 4.6 H D, Total Protein 7.5, Albumin 3.9, Globulin 3.6 H, Albumin/Globulin Ratio 1.1 05/01/22 21:59: Procalcitonin 0.062 05/01/22 21:59: Lactate 1.3 05/01/22 22:03: Specimen Source Right radial, O2 % 3lpm, ABG pH 7.33 L, ABG pC
[2022-05-01 22:52] LABS: Basophils # 0.1 K/mm3 (0-0.2); Basophils % 0.6 % (0.1-2.0); Eosinophils % 0.3 % (0.1-12.0); Hemoglobin 9.9 g/dL (12.2-16.2); Lymphocytes # 0.9 K/mm3 (0.7-4.5); Lymphocytes % 10.3 % (10-50); Mean Corpuscular HGB Conc 32.9 g/dL (31.8-35.4); Mean Corpuscular Hemoglobin 27.4 pg (27.0-31.2); Mean Corpuscular Volume 83.2 fl (81-99); Mean Platelet Volume 9.1 fl (7.4-10.4); Monocytes # 0.4 K/mm3 (0.1-1.0); Monocytes % 4.3 % (1.7-9.3); Neutrophils # 7.2 K/mm3 (1.8-7.8); Neutrophils % 84.6 % (37.0-80.0); Platelet Count 276 K/mm3 (142-424); Red Blood Count 3.61 M/mm3 (4.20-5.40); Red Cell Distribution Width 17.3 % (11.5-17.5); White Blood Count 8.6 K/mm3 (4.8-10.8)
[2022-05-01 22:53] LABS: C-Reactive Protein 4.6 mg/L (0-4)
[2022-05-01 23:10] LABS: Troponin I < 0.01 ng/ml (0.00-0.034)
[2022-05-01 23:26] LABS: Microscopic, Urine URINE MICROSCOPIC (MICROSCOPIC)
[2022-05-01 23:26] LABS: Coronavirus 19, PCR Detected (NotDetected)
[2022-05-01 23:27] LABS: Appearance,Urine CLEAR (Clear); Bilirubin,Urine Negative (Negative); Blood, Urine Negative (Negative); Color,Urine YELLOW (Yellow); Glucose,Urine (UA) Negative (Negative); Ketones,Urine Negative (Negative); Leukocyte Esterase,Urine Negative (Negative); Nitrate,Urine Negative (Negative); Protein,Urine Negative (Negative); Urobilinogen,Urine 0.2 EU/dl (0.2)
[2022-05-01 23:34] LABS: Bacteria,Urine Trace /lpf
[2022-05-01 23:36] LABS: Erythrocyte Sedimentation Rate > 140 mm/hr (0-30)
[2022-05-01 23:45] LABS: Procalcitonin 0.062 ng/mL (0.0-2.0)
[2022-05-02] VITALS (12 sets, daily range): BP systolic 111–168; BP diastolic 67–91; PULSE 64–80; RESP 20–22; TEMP 36.4–36.6; O2SAT 94–97; BMI 23.2
--- NOTE | 2022-05-02 00:03 | PC.NURSE ---
PT AWARE AND AGREEABLE WITH PLAN TO ADMIT. PT REPORTS THAT SHORTNESS OF AIR HAS IMPROVED AT THIS TIME. WCM.
--- NOTE | 2022-05-02 00:58 | PC.NURSE ---
PT ARRIVED TO FLOOR VIA STRETCHER FROM ED W/STAFF @ [id number]
--- NOTE | 2022-05-02 06:15 | PC.NURSE ---
Pt has rested well throughout this shift. Pt voiced no c/o of pain or SOA. Remains on 3L NC with sats 97%. Pt can ambulate to bathroom independently. HR has ranged form 64-73.
[2022-05-02 06:46] LABS: Basophils % 0.4 % (0.1-2.0); Eosinophils % 0.1 % (0.1-12.0); Hematocrit 27.5 % (37.0-47.0); Hemoglobin 9.2 g/dL (12.2-16.2); Lymphocytes # 0.7 K/mm3 (0.7-4.5); Lymphocytes % 11.5 % (10-50); Mean Corpuscular HGB Conc 33.5 g/dL (31.8-35.4); Mean Corpuscular Hemoglobin 27.5 pg (27.0-31.2); Mean Platelet Volume 8.3 fl (7.4-10.4); Monocytes # 0.1 K/mm3 (0.1-1.0); Monocytes % 1.6 % (1.7-9.3); Neutrophils # 5.5 K/mm3 (1.8-7.8); Neutrophils % 86.4 % (37.0-80.0); Platelet Count 221 K/mm3 (142-424); Red Blood Count 3.35 M/mm3 (4.20-5.40); Red Cell Distribution Width 17.5 % (11.5-17.5); White Blood Count 6.3 K/mm3 (4.8-10.8)
[2022-05-02 06:49] LABS: MANUAL DIFFERENTIAL MANUAL DIFFERENTIAL (MANUAL DIFF)
--- NOTE | 2022-05-02 07:07 | HMH.PHAVTE ---
[facility] VTE Monitoring - Patient Demographics Admission date: 05/01/22 Report Date: 05/02/22 Time: 07:07 Allergies/Adverse Reactions: Patient Allergies atorvastatin Adverse Reaction (Intermediate, Verified 03/20/22 15:17) myalgia aspirin [ASPIRIN] Adverse Reaction (Unknown, Verified 03/20/22 15:17) codeine [CODEINE] Adverse Reaction (Unknown, Verified 03/20/22 15:17) propoxyphene [PROPOXYPHENE] Adverse Reaction (Unknown, Verified 03/20/22 15:17) tramadol [TRAMADOL] Adverse Reaction (Unknown, Verified 03/20/22 15:17) Height: 1.57 m Weight: 57.209 kg Patient Problems: Current Active Problems (Last Updated 02/24/19 @ 09:01 by SILVA Cat) Acute exacerbation of chronic obstructive airways disease (Acute) Anemia (Acute) COVID-19 (Acute) Anxiety (Chronic) Tobacco abuse (Chronic) - VTE Risk Labs: VTE Related Lab Results Hgb 9.2 g/dL (12.2-16.2) L 05/02/22 06:34 Hct 27.5 % (37.0-47.0) L 05/02/22 06:34 Plt Count 221 K/mm3 (142-424) 05/02/22 06:34 BUN 15 mg/dl (7-17) 05/01/22 21:59 Creatinine 1.20 mg/dl (0.52-1.04) H 05/01/22 21:59 Estimated Creat Clear 49 mL/min (50-200) 05/01/22 21:59 VTE Score: 5 VTE Risk Level: Low Risk - Prophylaxis VTE Prophylaxis Ordered?: Yes Types of VTE Prophylaxis: TEDS Knee High Location of Applied Device: Bilateral Lower Extremeties
[2022-05-02 07:08] LABS: Chloride 113 mmol/L (98-107); Potassium 3.6 mmoL/L (3.5-5.1); Sodium 142 mmol/L (136-145)
[2022-05-02 07:11] LABS: Anion Gap 11.6 mEq/L (5-15); Blood Urea Nitrogen 15 mg/dl (7-17); Calcium 8.5 mg/dl (8.4-10.2); Carbon Dioxide 21 mmol/L (22.0-30.0); Creatinine Clearance Estimated 52 mL/min (50-200); Estimated Glomerular Filt Rate 52 ml/min (>60); GFR (African American) 62 ML/MIN (>60); Glucose 135 mg/dl (74-100)
[2022-05-02 07:12] LABS: Magnesium 1.8 mg/dl (1.6-2.3)
[2022-05-02 07:24] LABS: Anisocytosis 1+; Lymphocytes % 10 % (10-50); Monocytes % 1 % (2-9); Neutrophils % 89 % (42-76); Ovalocytes 1+; Platelet Estimate Normal; Total Cells Counted 100
--- NOTE | 2022-05-02 07:24 | HMH.PHAINT ---
MEDICATION RECONCILIATION COMPLETED ON PATIENT USING EXTERNAL FILL HISTORY FROM PHARMACY. -RADHA COLLINS, SARITHAD
--- NOTE | 2022-05-02 09:25 | HMH.PULMCON ---
*Admission Date: 05/01/22 *Reason for consult:: COVID-19 pneumonia *History of present illness: Ms. Rush is a 56-year-old female COPD recently discharged in the hospital from Klebsiella E. coli pneumonia presented to the hospital worsening respiratory distress and found to be having COVID-19 positive and pulmonary was called for further management. Patient admits only minimal worsening symptoms on her baseline. She has not been using her nebulizer machine for the last 3 days. [facility] History 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: Reports:: Anxiety, Congestive Heart Failure, Chronic Obstructive Pulmonary Disease (COPD), Coronary Artery Disease, Depression, Gastroesophageal Reflux Disease(GERD), Heart Murmur, Hepatitis, Hiatal Hernia, Hyperlipidemia, Hypertension, Lung Disease, Valvular Heart Disease Denies:: Cancer, Diabetes Mellitus Type 1, Diabetes Mellitus Type 2, Internal Pacemaker, MRSA, Seizures *Have you ever received a pneumonia vaccine?: Yes *Have you received a flu vaccine this season?: Yes Other 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: Reports: Arthritis, Other. Denies: Blood Transfusion Reaction Laterality Cases: Left: Arthroscopy Knee, Lumpectomy, Bilateral: Breast Biopsy, Carpal Tunnel Release Other Surgeries: Yes: Cancer Surgery, Cardiac Catheterization, Cholecystectomy, Colonoscopy, Coronary Stent, , Hernia Repair, Hysterectomy-Total, Hysterectomy-Partial, Other. No: Pacemaker Amputation: No Fractures: No - *Social History Smoking Status: Current every day smoker Tobacco Type: cigarettes # Packs/Day (cigarettes): 1 #Yrs smoked (if former smoker): 45 Alcohol Intake: never Alcohol Intake Frequency:: holidays/special occasions only Substance Use Type: denies use *Occupational Status:: unemployed Housing: house Household Members: friend(s) *Travel in the last 8 weeks: None - Psychiatric History Pschychiatric History:: Reports:: Anxiety, Depression Family Hx:: No significant family history ROS - Cons Reports body ache(s), Reports chills, Reports fatigue - Eyes Reports blurry vision - ENT Denies bleeding gums - Card Reports shortness of breath, Reports shortness of breath with activity - Resp Respiratory: Reports change in phlegm color, Reports chest congestion, Reports cough, Reports dyspnea on exertion, Reports excessive phlegm production, Reports cough with sputum production - GI Gastrointestingal: Denies: abdominal pain - [place] Musculoskeletal: Reports back pain - Psych Denies thoughts of hurting/killing others, Denies thoughts of hurting/killing yourself Meds Home Medications Medication Instructions Recorded Confirmed Type buprenorphine 8 mg-naloxone 2 mg 2 tab SL DAILY tab 03/22/21 05/02/22 History sublingual tablet Docusate Sodium 100 mg PO DAILYP PRN 03/04/22 05/02/22 History Famotidine 40 mg PO DAILY 03/04/22 05/02/22 History Fluticasone/Umeclidin/Vilanter 1 puff IH DAILY 03/04/22 05/02/22 History [Trista Ellipta 100-62.5-25] Megestrol Acetate 625 mg PO DAILY 03/04/22 05/02/22 History Rosuvastatin Calcium 5 mg PO DAILY 03/04/22 05/02/22 History Tizanidine HCl 4 mg PO TIDP PRN 03/04/22 05/02/22 History gabapentin 800 mg tablet 800 mg PO QID #120 tab 03/19/22 05/02/22 Rx Albuterol Sulfate [Albuterol 2 puff IH QIDP PRN 04/30/22 05/02/22 History Sulfate Hfa] Aspirin [Low Dose Aspirin EC] 81 mg PO DAILY 04/30/22 05/02/22 History Calcium Carbonate/Vitamin D3 1 tab PO DAILY 04/30/22 05/02/22 History [Super Calcium 600-Vit D3 400] Clopidogrel Bisulfate [Plavix] 75 mg PO DAILY 04/30/22 05/02/22 History Furosemide [Furosemide 20mg Tab*] 20 mg PO DAILY 04/30/22 05/02/22 History Ibuprofen 800 mg PO BIDP PRN 04/30/22 05/02/22 History Isosorbide Mononitrate [Isosorbide 30 mg PO DAILY 04/30/22 05/02/22 History Mononitrate ER] Omeprazole 40 mg PO DAILY 04/30/22 05/02/22 History bisoproloL fumarate [Bisoprolol 5 mg PO HS 04/30/22 05/02/22 History Fumarate] buPROPion HCL [Wellbutrin SR 75mg 75 mg PO BID 04/30/22 05/02/22 Hi
--- NOTE | 2022-05-02 12:22 | HMH.HPDC ---
General - General Admission date:: 05/02/22 Discharge date: 05/02/22 *Admission Date: 05/01/22 *Chief complaint: soa *History of present illness: 56-year-old female presents for increase soa for 3 days. HX of COPD. Pt states she uses o2 at 3 liters per nc continuous at home. Patient was recently discharged from the hospital for Klebsiella and E. coli pneumonia. Patient states she has had worsening respiratory distress. While in ed she was found to be having COVID-19 positive. Pt admitted for covid pneumonia and pulm consult. [facility] History I have reviewed the patient's past medical history: Yes 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: Reports:: Anxiety, Congestive Heart Failure, Chronic Obstructive Pulmonary Disease (COPD), Coronary Artery Disease, Depression, Gastroesophageal Reflux Disease(GERD), Heart Murmur, Hepatitis, Hiatal Hernia, Hyperlipidemia, Hypertension, Lung Disease, Valvular Heart Disease Denies:: Cancer, Diabetes Mellitus Type 1, Diabetes Mellitus Type 2, Internal Pacemaker, MRSA, Seizures *Have you ever received a pneumonia vaccine?: Yes *Have you received a flu vaccine this season?: Yes Other 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: Reports: Arthritis, Other. Denies: Blood Transfusion Reaction Laterality Cases: Left: Arthroscopy Knee, Lumpectomy, Bilateral: Breast Biopsy, Carpal Tunnel Release Other Surgeries: Yes: Cancer Surgery, Cardiac Catheterization, Cholecystectomy, Colonoscopy, Coronary Stent, , Hernia Repair, Hysterectomy-Total, Hysterectomy-Partial, Other. No: Pacemaker Amputation: No Fractures: No - *Social History Smoking Status: Current every day smoker Tobacco Type: cigarettes # Packs/Day (cigarettes): 1 #Yrs smoked (if former smoker): 45 Alcohol Intake: never Alcohol Intake Frequency:: holidays/special occasions only Substance Use Type: denies use *Occupational Status:: unemployed Housing: house Household Members: friend(s) *Travel in the last 8 weeks: None - Psychiatric History Pschychiatric History:: Reports:: Anxiety, Depression Family Hx:: No significant family history Review of Systems - Review of Systems Review of systems:: unable to obtain - Constitutional Denies body ache(s) - Eyes Denies blurry vision - ENT Denies headache(s) - *Cardiovascular Denies chest pain at rest - *Respiratory Reports cough, Reports shortness of breath, Reports shortness of breath with activity - *Gastrointestinal Denies abdominal pain - *Genitourinary Denies urinary incontinence - *Musculoskeletal Denies abnormal walking - Integumentary/Breasts Denies rash - *Neurologic Denies seizure-like activity - Psychiatric Denies abnormal sleep pattern - Endocrine Denies excessive sweating - Hematologic/Lymphatic Denies easy bruising - Allergic/Immunologic Denies itchy eyes Exam Vital signs and Labs for Last 24 Hours: Temp Pulse Resp BP Pulse Ox 97.9 F 78 22 168/85 H 94 L 05/02/22 08:00 05/02/22 08:00 05/02/22 08:00 05/02/22 08:00 05/02/22 11:26 Laboratory Results - last 24 hr 05/01/22 21:59: WBC 8.6 D, RBC 3.61 L, Hgb 9.9 L, Hct 30.0 L, MCV 83.2, MCH 27.4, MCHC 32.9, RDW 17.3, Plt Count 276, MPV 9.1, Neut % (Auto) 84.6 H, Lymph % (Auto) 10.3, [place] % (Auto) 4.3, Eos % (Auto) 0.3, Baso % (Auto) 0.6, Neut # (Auto) 7.2, Lymph # (Auto) 0.9, [place] # (Auto) 0.4, Eos # (Auto) 0.0, Baso # (Auto) 0.1, ESR > 140 H 05/01/22 21:59: Sodium 140, Potassium 4.0, Chloride 111 H, Carbon Dioxide 19 L, Anion Gap 14.0, BUN 15, Creatinine 1.20 H, Estimated Creat Clear 49, Estimated GFR 47 L, Est GFR ( Amer) 56 L, Glucose 116 H, Calcium 9.1, Total Bilirubin 0.3, AST 50 H D, ALT 17 D, Alkaline Phosphatase 98, Troponin I < 0.01, C-Reactive Protein 4.6 H D, Total Protein 7.5, Albumin 3.9, Globulin 3.6 H, Albumin/Globulin Ratio 1.1 05/01/22 21:59: Procalcitonin 0.062 05/01/22 21:59: Lactate 1.3 05/01/22 22:03: Specimen Source Right radial, O2 % 3lpm, ABG pH 7.33 L, ABG pCO2 33.6 L, ABG pO2 89.1, ABG HCO3 17.4 L, ABG Tot
--- NOTE | 2022-05-02 12:50 | CARE MANAGER ---
Raphael Baez called and states patient needs nebulizer at home, patient has oxygen via [facility] and this is whom she chooses to nring her nebulizer. Order and demographic faxed to [facility], they will deliver to patient home.
--- NOTE | 2022-05-02 14:34 | CARE MANAGER ---
Patient did not have a ride home, [facility] was called and they will brass pickler patient up from [facility] and take her home.
--- NOTE | 2022-05-03 11:25 | CARE MANAGER ---
Addendum entered by Clau Odonnell RN 05/03/22 13:56: [facility] will see patient either Saturday or Saturday for PT and SN. Contacted patient and updated her with information. Original Note: Contacted patient related to discharge from hospital. Patient states she fell last night and this morning trying to get to the bathroom. She does not think she hurt anything. She states she has not picked up her medication as she didn't have a ride. Called [facility] and they state they will deliver later today. Discussed possibility of home health, but patient has Medicaid and COVID. There are no agencies to provide these services. YULISSA Cortes
== END 2022-05-02 15:28 | disposition home health service (06) ==
LOC: ER 22:40 → 2ND 05-02 00:16
PROVIDERS: Admitting Provider Emergency Medicine; Emergency Provider Emergency Medicine; PCP Emergency Medicine; Visit Provider Emergency Medicine
DX: U07.1 COVID-19 (principal); J44.1 Chronic obstructive pulmonary disease with (acute) exacerbation; F41.9 Anxiety disorder, unspecified; D64.9 Anemia, unspecified; I25.10 Atherosclerotic heart disease of native coronary artery without angina pectoris; F32.A Depression, unspecified; K21.9 Gastro-esophageal reflux disease without esophagitis; E78.5 Hyperlipidemia, unspecified; I10 Essential (primary) hypertension; Z95.5 Presence of coronary angioplasty implant and graft; J12.82 Pneumonia due to coronavirus disease 2019
CPT/HCPCS: 36415; 71046; 73060; 80048; 80053; 81001; 82803; 83605; 83735; 84145; 84484; 85007; 85025; 85651; 86140; 87040; 93005; 96375; 99285; C9803; G0378; J0456; J0696; J2405; U0003; U0005

== ENCOUNTER 2022-05-09 00:06 | Observation (INO) | payer OTHER, SELFPAY ==
[2022-05-09] VITALS (20 sets, daily range): BP systolic 134–179; BP diastolic 73–108; PULSE 71–125; RESP 16–21; TEMP 36.4–37.2; O2SAT 92–100; BMI 18.3; BMI 21.4
--- NOTE | 2022-05-09 00:19 | XR_ITS ---
PROCEDURE INFORMATION: Exam: XR Chest Exam date and time: 05/09/2022 1:03 AM Age: 56 years old Clinical indication: Sternal or substernal pain; Additional info: Chest pain TECHNIQUE: Imaging protocol: XR of the chest. Views: 2 views. COMPARISON: CR XR CHEST 2V 05/01/2022 10:03 PM FINDINGS: Lungs: Unremarkable. No consolidation. Pleural spaces: Unremarkable. No pleural effusion. No pneumothorax. Heart/Mediastinum: Unremarkable. No cardiomegaly. Bones/joints: Unremarkable. IMPRESSION: No acute cardiopulmonary abnormality.
[2022-05-09 00:46] LABS: Basophils # 0.3 K/mm3 (0-0.2); Basophils % 1.1 % (0.1-2.0); Eosinophils # 0.2 K/mm3 (0.0-0.4); Eosinophils % 0.9 % (0.1-12.0); Hematocrit 45.7 % (37.0-47.0); Hemoglobin 15.2 g/dL (12.2-16.2); Lymphocytes # 1.5 K/mm3 (0.7-4.5); Lymphocytes % 6.1 % (10-50); Mean Corpuscular HGB Conc 33.2 g/dL (31.8-35.4); Mean Corpuscular Hemoglobin 27.4 pg (27.0-31.2); Mean Corpuscular Volume 82.5 fl (81-99); Monocytes # 1.1 K/mm3 (0.1-1.0); Monocytes % 4.3 % (1.7-9.3); Neutrophils # 21.9 K/mm3 (1.8-7.8); Neutrophils % 87.7 % (37.0-80.0); Platelet Count 365 K/mm3 (142-424); Red Blood Count 5.53 M/mm3 (4.20-5.40); Red Cell Distribution Width 17.7 % (11.5-17.5)
[2022-05-09 01:01] LABS: MANUAL DIFFERENTIAL MANUAL DIFFERENTIAL (MANUAL DIFF)
--- NOTE | 2022-05-09 01:01 | PC.NURSE ---
Rounded on pt at this time. No new needs
[2022-05-09 01:04] LABS: Alanine Aminotransferase 23 U/L (12-78); Albumin Level 4.5 g/dl (3.5-5.0); Albumin/Globulin Ratio 1.1 (1.1-1.8); Alkaline Phosphatase 113 U/L (38-126); Anion Gap 20.7 mEq/L (5-15); Aspartate Amino Transferase 37 U/L (14-36); Bilirubin,Total 1.1 mg/dl (0.2-1.3); Blood Urea Nitrogen 45 mg/dl (7-17); Calcium 9.7 mg/dl (8.4-10.2); Carbon Dioxide 21 mmol/L (22.0-30.0); Chloride 95 mmol/L (98-107); Creatinine Clearance Estimated 13 mL/min (50-200); Estimated Glomerular Filt Rate 14 ml/min (>60); GFR (African American) 17 ML/MIN (>60); Glucose 130 mg/dl (74-100); Sodium 134 mmol/L (136-145); Total Protein,Serum 8.5 g/dl (6.3-8.2)
[2022-05-09 01:09] LABS: C-Reactive Protein 38.1 mg/L (0-4)
--- NOTE | 2022-05-09 01:11 | HMH.EDSOB ---
ED Disposition Clinical Impression: HUGO (acute kidney injury), COVID-19, Hypokalemia COPD (chronic obstructive pulmonary disease) Qualifiers: COPD type: unspecified COPD Qualified Code(s): J44.9 - Chronic obstructive pulmonary disease, unspecified Disposition: Admitted as Observation Condition on Discharge: Good - Critical Care Critical Care Time: No Attestation: On 05/09/22, the high probability of a clinically significant, sudden or life threatening deterioration of the following system(s) required my full and direct attention, intervention and personal management. The time I documented below is in addition to time spent performing reported procedures but includes the following listed in this critical care notation. Medical Decision Making - Medical Records Medical records reviewed: Yes: I reviewed the patient's medical records. - Berry Inquiry Pt receiving controlled substance: No Vital Signs: 05/09/22 00:06 05/09/22 01:02 05/09/22 01:30 Temperature 99 F Temperature Source Rectal Pulse Rate 85 100 H Pulse Rate [Left Radial] 122 H Respiratory Rate 21 16 16 Blood Pressure 170/90 H 155/100 H Blood Pressure [Right Arm] 167/101 H Blood Pressure Mean Blood Pressure Mean [Right Arm] 123 Blood Pressure Source Automatic Cuff Blood Pressure Source [Right Arm] Automatic Cuff Blood Pressure Position Sitting Blood Pressure Position [Right Arm] Sitting 02 Sat by Pulse Oximetry 95 96 94 L Oxygen Delivery Method Room Air Room Air Oxygen Flow Rate (LPM) 05/09/22 02:00 05/09/22 03:30 05/09/22 04:30 Temperature Temperature Source Pulse Rate 112 H 100 H 110 H Pulse Rate [Left Radial] Respiratory Rate 16 16 Blood Pressure 160/104 H 178/100 H 172/106 H Blood Pressure [Right Arm] Blood Pressure Mean 122 Blood Pressure Mean [Right Arm] Blood Pressure Source Blood Pressure Source [Right Arm] Blood Pressure Position Blood Pressure Position [Right Arm] 02 Sat by Pulse Oximetry 95 95 95 Oxygen Delivery Method Nasal Cannula Oxygen Flow Rate (LPM) 05/09/22 05:00 05/09/22 05:18 05/09/22 05:30 Temperature Temperature Source Pulse Rate 117 H 98 H 112 H Pulse Rate [Left Radial] Respiratory Rate 16 Blood Pressure 173/98 H 170/98 H 161/96 H Blood Pressure [Right Arm] Blood Pressure Mean Blood Pressure Mean [Right Arm] Blood Pressure Source Automatic Cuff Blood Pressure Source [Right Arm] Blood Pressure Position Sitting Blood Pressure Position [Right Arm] 02 Sat by Pulse Oximetry 94 L 99 99 Oxygen Delivery Method Nasal Cannula Nasal Cannula Nasal Cannula Oxygen Flow Rate (LPM) 3 2 3 05/09/22 05:57 05/09/22 05:59 05/09/22 06:00 Temperature Temperature Source Pulse Rate 110 H 125 H Pulse Rate [Left Radial] Respiratory Rate 18 Blood Pressure 161/108 H 161/108 H 179/104 H Blood Pressure [Right Arm] Blood Pressure Mean 131 Blood Pressure Mean [Right Arm] Blood Pressure Source Blood Pressure Source [Right Arm] Blood Pressure Position Sitting Blood Pressure Position [Right Arm] 02 Sat by Pulse Oximetry 95 95 92 L Oxygen Delivery Method Nasal Cannula Nasal Cannula Nasal Cannula Oxygen Flow Rate (LPM) 3 3 05/09/22 06:35 Temperature Temperature Source Pulse Rate 98 H Pulse Rate [Left Radial] Respiratory Rate 16 Blood Pressure 141/98 H Blood Pressure [Right Arm] Blood Pressure Mean Blood Pressure Mean [Right Arm] Blood Pressure Source Automatic Cuff Blood Pressure Source [Right Arm] Blood Pressure Position Sitting Blood Pressure Position [Right Arm] 02 Sat by Pulse Oximetry 96 Oxygen Delivery Method Nasal Cannula Oxygen Flow Rate (LPM) 3 - Lab Data Lab results reviewed: Yes: I reviewed the patient's lab results. Lab Results 05/09/22 00:30: WBC 25.0 H*, RBC 5.53 H, Hgb 15.2, Hct 45.7, MCV 82.5, MCH 27.4, MCHC 33.2, RDW 17.7 H, Plt Count 365, MPV 9.0, Neut % (Auto) 87.7 H
[2022-05-09 01:19] LABS: Potassium 2.7 mmoL/L (3.5-5.1)
--- NOTE | 2022-05-09 01:20 | PC.NURSE ---
lab called with potassium of 2.7 repeated and verified notified
[2022-05-09 01:23] LABS: Procalcitonin 0.293 ng/mL (0.0-2.0)
--- NOTE | 2022-05-09 02:18 | PC.NURSE ---
Pt given warm blankets at this time
[2022-05-09 03:10] LABS: Anisocytosis 2+; Lymphocytes % 13 % (10-50); Monocytes % 2 % (2-9); Neutrophils % 85 % (42-76); Ovalocytes 1+; Platelet Estimate Normal; Total Cells Counted 100
--- NOTE | 2022-05-09 03:32 | PC.NURSE ---
pt has ambulated to restroom multiple times. Updated on POC. No new needs at this time
[2022-05-09 03:42] LABS: Erythrocyte Sedimentation Rate 13 mm/hr (0-30)
--- NOTE | 2022-05-09 04:54 | PC.NURSE ---
MD requested BC and lactic be drawn at this time. 2nd IV established in left AC via US 20g and labs were drawn no complications
[2022-05-09 05:06] LABS: Influenza A, PCR Not Detected (NotDetected); Influenza B, PCR Not Detected (NotDetected)
[2022-05-09 05:23] LABS: Lactic Acid 1.8 mmol/L (0.7-2.1)
[2022-05-09 05:42] LABS: Coronavirus 19, PCR Detected (NotDetected)
--- NOTE | 2022-05-09 06:41 | PC.NURSE ---
Notified house of admission
--- NOTE | 2022-05-09 07:14 | HMH.PHAVTE ---
[facility] Pharmacy VTE Monitoring - Patient Demographics Admission date: 05/09/22 Report Date: 05/09/22 Time: 07:14 Allergies/Adverse Reactions: Patient Allergies atorvastatin Adverse Reaction (Intermediate, Verified 03/20/22 15:17) myalgia aspirin [ASPIRIN] Adverse Reaction (Unknown, Verified 03/20/22 15:17) codeine [CODEINE] Adverse Reaction (Unknown, Verified 03/20/22 15:17) propoxyphene [PROPOXYPHENE] Adverse Reaction (Unknown, Verified 03/20/22 15:17) tramadol [TRAMADOL] Adverse Reaction (Unknown, Verified 03/20/22 15:17) Height: 1.57 m Weight: 45.359 kg Patient Problems: Current Active Problems (Last Updated 02/24/19 @ 09:01 by SILVA Cat) COVID-19 (Acute) HUGO (acute kidney injury) (Acute) COPD (chronic obstructive pulmonary disease) (Chronic) Hypokalemia (Acute) - VTE Risk Labs: VTE Related Lab Results Hgb 15.2 g/dL (12.2-16.2) 05/09/22 00:30 Hct 45.7 % (37.0-47.0) 05/09/22 00:30 Plt Count 365 K/mm3 (142-424) 05/09/22 00:30 BUN 45 mg/dl (7-17) H 05/09/22 00:30 Creatinine 3.40 mg/dl (0.52-1.04) H 05/09/22 00:30 Estimated Creat Clear 13 mL/min (50-200) 05/09/22 00:30 - Prophylaxis VTE Prophylaxis Ordered?: Yes Types of VTE Prophylaxis: TEDS Knee High Location of Applied Device: Bilateral Lower Extremeties
[2022-05-09 07:18] LABS: Microscopic, Urine URINE MICROSCOPIC (MICROSCOPIC)
[2022-05-09 07:21] LABS: Appearance,Urine CLEAR (Clear); Blood, Urine Negative (Negative); Color,Urine YELLOW (Yellow); Glucose,Urine (UA) Negative (Negative); Ketones,Urine TRACE (Negative); Leukocyte Esterase,Urine Negative (Negative); Nitrate,Urine Negative (Negative); Protein,Urine TRACE (Negative); Specific Gravity, Urine >= 1.030 (1.005-1.030); Urobilinogen,Urine 0.2 EU/dl (0.2)
[2022-05-09 07:33] LABS: Barbiturates Screen,Urine Negative ng/ml (<200)
[2022-05-09 07:34] LABS: Amphetamine/Metha Screen,Urine Negative ng/ml (<1000); Benzodiazepines Screen,Urine Negative ng/ml (<200); Bilirubin,Urine 2+ (Negative)
[2022-05-09 07:35] LABS: Cannabinoid Screen,Urine Negative ng/ml (<50); Methadone Screen,Urine Negative ng/ml (<300)
[2022-05-09 07:36] LABS: Cocaine Screen,Urine Negative ng/ml (<300)
[2022-05-09 07:37] LABS: Opiate Screen,Urine Negative ng/ml (<300); Phencyclidine Screen,Urine Negative ng/ml (<25)
[2022-05-09 07:47] LABS: WBC,Urine Occasional #/hpf (0-3)
[2022-05-09 07:48] LABS: Bacteria,Urine Trace /lpf; Squamous Epithelial Cell,Urine Occasional #/hpf (0-5)
--- NOTE | 2022-05-09 10:49 | HMH.PULMCON ---
*Admission Date: 05/09/22 *Reason for consult:: Respiratory distress *History of present illness: Ms. Rush is a 56-year-old female history of COPD on triple inhaler therapy, prior history of E. coli and Klebsiella pneumonia along with MDR UTI recently admitted to the hospital with respiratory distress and COVID-19 pneumonia and was discharged home on antibiotics along with Paxil with presented to the hospital again complaining of not feeling well and lethargic. Patient denies any worsening respiratory distress. Admits nausea vomiting and decreased p.o. intake [facility] History 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: Reports:: Anxiety, Carotid Stenosis, Congestive Heart Failure, Chronic Obstructive Pulmonary Disease (COPD), Coronary Artery Disease, Depression, Gastroesophageal Reflux Disease(GERD), Heart Murmur, Hepatitis, Hiatal Hernia, Hyperlipidemia, Hypertension, Lung Disease, Valvular Heart Disease Denies:: Cancer, Diabetes Mellitus Type 1, Diabetes Mellitus Type 2, Internal Pacemaker, MRSA, Seizures *Have you ever received a pneumonia vaccine?: Yes *Have you received a flu vaccine this season?: Yes Other 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: Reports: Arthritis, Other. Denies: Blood Transfusion Reaction Laterality Cases: Left: Arthroscopy Knee, Lumpectomy, Bilateral: Breast Biopsy, Carpal Tunnel Release Other Surgeries: Yes: Cancer Surgery, Cardiac Catheterization, Cholecystectomy, Colonoscopy, Coronary Stent, , Hernia Repair, Hysterectomy-Total, Hysterectomy-Partial, Other. No: Pacemaker Amputation: No Fractures: No - *Social History Smoking Status: Current every day smoker Tobacco Type: cigarettes # Packs/Day (cigarettes): 1 #Yrs smoked (if former smoker): 45 Alcohol Intake: current Alcohol Intake Frequency:: holidays/special occasions only Substance Use Type: denies use *Occupational Status:: unemployed Housing: house Household Members: friend(s) *Travel in the last 8 weeks: None - Psychiatric History Pschychiatric History:: Reports:: Anxiety, Depression Family Hx:: No significant family history ROS - Cons Reports anorexia, Reports body ache(s), Reports chills, Reports fatigue, Reports lack of energy - Eyes Reports blurry vision - ENT Denies bleeding gums - Card Reports chest pain at rest, Reports chest pain with activity, Reports shortness of breath with activity - Resp Respiratory: Denies change in phlegm color, Reports chest congestion, Reports cough, Denies excessive phlegm production, Reports cough with sputum production - GI Gastrointestingal: Reports: nausea, vomiting - [place] Musculoskeletal: Reports back pain - Psych Denies thoughts of hurting/killing others, Denies thoughts of hurting/killing yourself Meds Home Medications Medication Instructions Recorded Confirmed Type buprenorphine 8 mg-naloxone 2 mg 2 tab SL DAILY tab 03/22/21 05/09/22 History sublingual tablet Docusate Sodium 100 mg PO DAILYP PRN 03/04/22 05/09/22 History Famotidine 40 mg PO DAILY 03/04/22 05/09/22 History Fluticasone/Umeclidin/Vilanter 1 puff IH DAILY 03/04/22 05/09/22 History [Demetrislesusan Ellipta 100-62.5-25] Megestrol Acetate 625 mg PO DAILY 03/04/22 05/09/22 History Rosuvastatin Calcium 5 mg PO DAILY 03/04/22 05/09/22 History Tizanidine HCl 4 mg PO TIDP PRN 03/04/22 05/09/22 History gabapentin 800 mg tablet 800 mg PO QID #120 tab 03/19/22 05/09/22 Rx Aspirin [Low Dose Aspirin EC] 81 mg PO DAILY 04/30/22 05/09/22 History Calcium Carbonate/Vitamin D3 1 tab PO DAILY 04/30/22 05/09/22 History [Super Calcium 600-Vit D3 400] Clopidogrel Bisulfate [Plavix] 75 mg PO DAILY 04/30/22 05/09/22 History Furosemide [Furosemide 20mg Tab*] 20 mg PO DAILY 04/30/22 05/09/22 History Ibuprofen 800 mg PO BIDP PRN 04/30/22 05/09/22 History Isosorbide Mononitrate [Isosorbide 30 mg PO DAILY 04/30/22 05/09/22 History Mononitrate ER] Omeprazole 40 mg PO DAILY 04/30/22 05/09/22 History bisoproloL fumarate [Bisoprolol 5 mg PO HS 04/30/22 05/09/22 History Fumarate] buPROPio
[2022-05-09 13:41] LABS: Anion Gap 14.1 mEq/L (5-15); Blood Urea Nitrogen 46 mg/dl (7-17); Calcium 7.8 mg/dl (8.4-10.2); Carbon Dioxide 19 mmol/L (22.0-30.0); Chloride 106 mmol/L (98-107); Creatinine Clearance Estimated 22 mL/min (50-200); Estimated Glomerular Filt Rate 21 ml/min (>60); GFR (African American) 25 ML/MIN (>60); Glucose 124 mg/dl (74-100); Potassium 3.1 mmoL/L (3.5-5.1); Sodium 136 mmol/L (136-145)
--- NOTE | 2022-05-09 15:26 | HMH.PHAINT ---
MEDICATION RECONCILIATION COMPLETED ON PATIENT USING DISCHARGE SUMMARY FROM PREVIOUS ADMISSION. -RADHA COLLINS, SARITHAD
--- NOTE | 2022-05-09 16:11 | PC.NURSE ---
Pt is alert and oriented x4. Some faint expiratory wheezes noted to upper lobes. She remains on RA w/O2 sats measuring >93%. She's ambulated to the bathroom independently and tolerated well. She has complained of nausea. Zofran and phenergan administered per mar with favorable results. Bed is locked and in lowest position, call light in reach.
[2022-05-10] VITALS (7 sets, daily range): BP systolic 111–135; BP diastolic 61–82; PULSE 70–106; RESP 15–20; TEMP 36.6–37.3; O2SAT 90–97; BMI 22.6
--- NOTE | 2022-05-10 04:57 | PC.NURSE ---
Patient resting intermittently throughout shift. Patient medicaid per MAR for nausea. Patient remains on RA sating above 90%. Patient receiving maintenance fluids per MAR. No other complains expressed.
[2022-05-10 06:22] LABS: Basophils # 0.1 K/mm3 (0-0.2); Basophils % 0.4 % (0.1-2.0); Eosinophils # 0.2 K/mm3 (0.0-0.4); Eosinophils % 1.3 % (0.1-12.0); Hematocrit 27.2 % (37.0-47.0); Hemoglobin 9.1 g/dL (12.2-16.2); Lymphocytes # 1.5 K/mm3 (0.7-4.5); Mean Corpuscular HGB Conc 33.5 g/dL (31.8-35.4); Mean Corpuscular Hemoglobin 27.4 pg (27.0-31.2); Mean Corpuscular Volume 81.6 fl (81-99); Mean Platelet Volume 9.1 fl (7.4-10.4); Monocytes # 1.1 K/mm3 (0.1-1.0); Monocytes % 7.1 % (1.7-9.3); Neutrophils # 12.1 K/mm3 (1.8-7.8); Neutrophils % 81.2 % (37.0-80.0); Platelet Count 222 K/mm3 (142-424); Red Blood Count 3.34 M/mm3 (4.20-5.40); Red Cell Distribution Width 17.8 % (11.5-17.5)
[2022-05-10 06:32] LABS: Chloride 107 mmol/L (98-107); Sodium 135 mmol/L (136-145)
[2022-05-10 06:35] LABS: Anion Gap 8.1 mEq/L (5-15); Blood Urea Nitrogen 31 mg/dl (7-17); Calcium 7.8 mg/dl (8.4-10.2); Carbon Dioxide 22 mmol/L (22.0-30.0); Creatinine Clearance Estimated 33 mL/min (50-200); Estimated Glomerular Filt Rate 31 ml/min (>60); GFR (African American) 38 ML/MIN (>60); Glucose 89 mg/dl (74-100)
[2022-05-10 06:53] LABS: MANUAL DIFFERENTIAL MANUAL DIFFERENTIAL (MANUAL DIFF)
[2022-05-10 07:01] LABS: Potassium 2.1 mmoL/L (3.5-5.1)
[2022-05-10 08:23] LABS: Anisocytosis 1+; Lymphocytes % 8 % (10-50); Microcytosis 1+; Monocytes % 3 % (2-9); Neutrophils % 89 % (42-76); Platelet Estimate Normal; Total Cells Counted 100
--- NOTE | 2022-05-10 09:33 | HMH.PULMPN ---
Internal Medicine - PN: Subj *Date: 05/10/22 *Time: 11:43 Interval history: No acute respiratory vents overnight. Denies any new respiratory complaints. Exam - Constitutional Constitutional:: Present: no acute distress. Absent: comfortable - HENMT Exam HENMT: Present: normocephalic - Eye Exam Eyes:: Present: normal appearance both eyes and related structures - Neck Exam Neck:: Present: normal visual inspection - Respiratory Exam Respiratory:: Present: able to speak in complete sentences, no respiratory distress, rhonchi, wheezing - Cardiovascular Exam Cardiac:: Present: S1, S2 - GI Exam GI:: Present: soft - Skin Exam Skin: Present: warm, no rash - Neurological Exam Neurological: Present: alert, awake - Extremities Exam Extremities: Present: no cyanosis, no clubbing Assessment and Plan - Assessment and plan all Dx Assessment and Plan for all problems:: #COVID-19 pneumonia: #History of COPD: 51 Y/O female history of COPD recently admitted to the hospital for COVID-19 pneumonia discharged on Paxlovid Patient denies any worsening respiratory distress. Saturating 93% on room air. Mild wheezing. Chest x-ray on admission clear with no acute pulmonary infiltrates. Unchanged from her most recent discharge. Neutrophilic leukocytosis with white count of 25.0 on admission. Also noted to have HUGO on CKD with creatinine over 3.4. Significant hypokalemia also noted on admission Interval update: Improving leukocytosis. Denies any new respiratory complaints. Stable oxygen requirements. Saturating 93 to 96% on room air. Improving Cr, worsening Hypokalemia Plan: -Flutter valve and incentive spirometry -Continue cefepime pending blood cultures, sputum and urine cultures. Nasal MRSA screen -Continue Trelegy 100 inhaler along with DuoNebs every 6 hours on as-needed basis. -Continue to monitor renal function. Replace 40 IV and 60 oral potassium. #Thank you for involving pulmonary in this patient care. We will continue to follow
--- NOTE | 2022-05-10 10:34 | HMH.HP ---
*Admission Date: 05/09/22 *Chief complaint: Shortness of breath *History of present illness: 56-year-old female patient with positive COVID presented to the emergency department via EMS with increasing shortness of breath and nausea. She reports she has taken Zofran at 1700 and was reporting nausea upon arrival. EMS reports a DuoNeb in route to hospital. She denies fever/chills/body aches and nausea denies vomiting or diarrhea. She does have a longstanding history of COPD and until last week was a 1 to 1-1/2 pack a day smoker for 40 years [facility] History I have reviewed the patient's past medical history: Yes 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: Reports:: Anxiety, Carotid Stenosis, Congestive Heart Failure, Chronic Obstructive Pulmonary Disease (COPD), Coronary Artery Disease, Depression, Gastroesophageal Reflux Disease(GERD), Heart Murmur, Hepatitis, Hiatal Hernia, Hyperlipidemia, Hypertension, Lung Disease, Valvular Heart Disease Denies:: Cancer, Diabetes Mellitus Type 1, Diabetes Mellitus Type 2, Internal Pacemaker, MRSA, Seizures *Have you ever received a pneumonia vaccine?: Yes *Have you received a flu vaccine this season?: Yes Other 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: Reports: Arthritis, Other. Denies: Blood Transfusion Reaction Laterality Cases: Left: Arthroscopy Knee, Lumpectomy, Bilateral: Breast Biopsy, Carpal Tunnel Release Other Surgeries: Yes: Cancer Surgery, Cardiac Catheterization, Cholecystectomy, Colonoscopy, Coronary Stent, , Hernia Repair, Hysterectomy-Total, Hysterectomy-Partial, Other. No: Pacemaker Amputation: No Fractures: No - *Social History Smoking Status: Current every day smoker Tobacco Type: cigarettes # Packs/Day (cigarettes): 1 #Yrs smoked (if former smoker): 45 Alcohol Intake: current Alcohol Intake Frequency:: holidays/special occasions only Substance Use Type: denies use *Occupational Status:: unemployed Housing: house Household Members: friend(s) *Travel in the last 8 weeks: None - Psychiatric History Pschychiatric History:: Reports:: Anxiety, Depression Family Hx:: No significant family history Review of Systems - Review of Systems Review of systems:: pertinent systems reviewed and negative unless documented below - Constitutional Reports fatigue, Denies body ache(s), Denies headache(s) - Eyes Denies blurry vision, Denies double vision - ENT Denies abnormal hearing, Denies difficulty swallowing - *Cardiovascular Reports shortness of breath, Reports shortness of breath with activity, Denies chest pain at rest - *Respiratory Reports shortness of breath, Reports shortness of breath with activity, Denies chest congestion, Denies cough, Denies excessive phlegm production - *Gastrointestinal Denies abdominal pain, Denies constipation - *Musculoskeletal Denies abnormal walking, Denies back pain, Denies loss of height - *Neurologic Denies abnormal hearing, Denies confusion, Denies seizure-like activity - Psychiatric Denies change in appetite, Denies confusion - Endocrine Denies cold intolerance, Denies increased thirst - Hematologic/Lymphatic Denies easy bleeding, Denies easy bruising - Allergic/Immunologic Reports wheezing, Denies GI upset with certain foods Meds Home Medications Medication Instructions Recorded Confirmed Type buprenorphine 8 mg-naloxone 2 mg 2 tab SL DAILY tab 03/22/21 05/09/22 History sublingual tablet Docusate Sodium 100 mg PO DAILYP PRN 03/04/22 05/09/22 History Famotidine 40 mg PO DAILY 03/04/22 05/09/22 History Fluticasone/Umeclidin/Vilanter 1 puff IH DAILY 03/04/22 05/09/22 History [Trelegy Ellipta 100-62.5-25] Megestrol Acetate 625 mg PO DAILY 03/04/22 05/09/22 History Rosuvastatin Calcium 5 mg PO DAILY 03/04/22 05/09/22 History Tizanidine HCl 4 mg PO TIDP PRN 03/04/22 05/09/22 History gabapentin 800 mg tablet 800 mg PO QID #120 tab 03/19/22 05/09/22 Rx Aspirin [Low Dose Aspirin EC] 81 mg PO DAILY 04/30/22 05/09/22 History Calcium Carbonate/Vitamin D3 1 tab PO DAILY 0
--- NOTE | 2022-05-10 17:45 | PC.NURSE ---
Pt has been up to the chair the majority of the shift and has tolerated well. Rhonchi and wheezes noted to lungs. She remains on RA w/O2 sats measuring > 92%. Appetite has been good. She's denied any complaints. Still waiting on her to urinate to collect a sample.
[2022-05-10 19:04] LABS: Microscopic, Urine URINE MICROSCOPIC (MICROSCOPIC)
[2022-05-10 19:05] LABS: Appearance,Urine CLEAR (Clear); Bilirubin,Urine Negative (Negative); Blood, Urine Negative (Negative); Color,Urine YELLOW (Yellow); Glucose,Urine (UA) Negative (Negative); Ketones,Urine Negative (Negative); Leukocyte Esterase,Urine Negative (Negative); Nitrate,Urine Negative (Negative); Protein,Urine Negative (Negative); Urobilinogen,Urine 0.2 EU/dl (0.2)
[2022-05-10 20:22] LABS: Bacteria,Urine Trace /lpf; Squamous Epithelial Cell,Urine Occasional #/hpf (0-5); WBC,Urine Occasional #/hpf (0-3)
[2022-05-11] VITALS: BP 146/65; PULSE 92; RESP 18; TEMP 36.8; O2SAT 100
[2022-05-11 04:00] VITALS: BP 132/73; PULSE 87; RESP 18; TEMP 36.9; O2SAT 94
--- NOTE | 2022-05-11 04:21 | PC.NURSE ---
Pt has remained on RA this shift. No complaints stated this AM. She has slept well. AM labs ordered. VSS. Will continue to monitor.
[2022-05-11 05:00] VITALS: BMI 24.2
[2022-05-11 06:10] LABS: Basophils # 0.1 K/mm3 (0-0.2); Basophils % 0.8 % (0.1-2.0); Eosinophils # 0.3 K/mm3 (0.0-0.4); Eosinophils % 2.1 % (0.1-12.0); Hematocrit 28.4 % (37.0-47.0); Hemoglobin 9.2 g/dL (12.2-16.2); Lymphocytes # 2.1 K/mm3 (0.7-4.5); Lymphocytes % 15.4 % (10-50); Mean Corpuscular HGB Conc 32.4 g/dL (31.8-35.4); Mean Corpuscular Hemoglobin 26.9 pg (27.0-31.2); Mean Corpuscular Volume 83.1 fl (81-99); Mean Platelet Volume 9.2 fl (7.4-10.4); Monocytes # 0.7 K/mm3 (0.1-1.0); Neutrophils # 10.3 K/mm3 (1.8-7.8); Neutrophils % 76.8 % (37.0-80.0); Platelet Count 213 K/mm3 (142-424); Red Blood Count 3.42 M/mm3 (4.20-5.40); Red Cell Distribution Width 17.9 % (11.5-17.5); White Blood Count 13.4 K/mm3 (4.8-10.8)
[2022-05-11 07:08] LABS: Chloride 116 mmol/L (98-107); Potassium 3.3 mmoL/L (3.5-5.1); Sodium 139 mmol/L (136-145)
[2022-05-11 07:11] LABS: Anion Gap 9.3 mEq/L (5-15); Blood Urea Nitrogen 17 mg/dl (7-17); Calcium 7.8 mg/dl (8.4-10.2); Carbon Dioxide 17 mmol/L (22.0-30.0); Creatinine Clearance Estimated 46 mL/min (50-200); Estimated Glomerular Filt Rate 43 ml/min (>60); GFR (African American) 51 ML/MIN (>60); Glucose 106 mg/dl (74-100)
[2022-05-11 08:00] VITALS: BP 146/75; PULSE 83; RESP 19; TEMP 36.6; O2SAT 97
--- NOTE | 2022-05-11 09:32 | HMH.PULMPN ---
Internal Medicine - PN: Subj *Date: 06/11/22 *Time: 15:59 Interval history: No acute respiratory events overnight Exam - Constitutional Constitutional:: Present: no acute distress - HENMT Exam HENMT: Present: normocephalic - Eye Exam Eyes:: Present: normal appearance both eyes and related structures - Neck Exam Neck:: Present: normal visual inspection - Respiratory Exam Respiratory:: Present: able to speak in complete sentences, no respiratory distress. Absent: wheezing - Cardiovascular Exam Cardiac:: Present: S1, S2 - GI Exam GI:: Present: soft - Skin Exam Skin: Present: warm - Neurological Exam Neurological: Present: alert, awake - Extremities Exam Extremities: Present: no cyanosis, no clubbing Assessment and Plan (1) COPD exacerbation Status: Acute Category: Medical Code(s): J44.1 - Chronic obstructive pulmonary disease with (acute) exacerbation (2) Renal insufficiency Status: Acute Category: Medical Code(s): N28.9 - Disorder of kidney and ureter, unspecified (3) Acute exacerbation of chronic obstructive airways disease Status: Acute Category: Medical Code(s): J44.1 - Chronic obstructive pulmonary disease with (acute) exacerbation (4) COVID-19 Status: Acute Category: Medical Code(s): U07.1 - COVID-19 (5) HUGO (acute kidney injury) Status: Acute Category: Medical Code(s): N17.9 - Acute kidney failure, unspecified - Assessment and plan all Dx Assessment and Plan for all problems:: #COVID-19 pneumonia: #History of COPD: 51 Y/O female history of COPD recently admitted to the hospital for COVID-19 pneumonia discharged on Paxlovid Patient denies any worsening respiratory distress. Saturating 93% on room air. Mild wheezing. Chest x-ray on admission clear with no acute pulmonary infiltrates. Unchanged from her most recent discharge. Neutrophilic leukocytosis with white count of 25.0 on admission. Also noted to have HUGO on CKD with creatinine over 3.4. Significant hypokalemia also noted on admission Interval update: Improving leukocytosis. Denies any new respiratory complaints. Stable oxygen requirements. Saturating 93 to 96% on room air. Improving Cr, worsening Hypokalemia improved still at 3.3 Nasal MRSA PCR negative. Blood cultures no growth 48 hours. Pulmonary sputum gram-positive cocci. Plan: -Flutter valve and incentive spirometry -Wean Abx to levofloxacin to complete a total of 7 days upon discharge -Continue Trelegy 100 inhaler along with DuoNebs every 6 hours on as-needed basis. #Thank you for involving pulmonary in this patient care. We will continue to follow
--- NOTE | 2022-05-11 09:45 | HMH.ACPN2 ---
Internal Medicine - PN: Subj *Date: 05/11/22 *Time: 09:30 Interval history: pt states she is feeling nauseous today. Exam Vital signs and Labs for Last 24 Hours: Temp Pulse Resp BP Pulse Ox 97.8 F 83 19 146/75 H 97 05/11/22 08:00 05/11/22 08:00 05/11/22 08:00 05/11/22 08:00 05/11/22 08:00 Laboratory Results - last 24 hr 05/10/22 18:55: Urine Color Yellow, Urine Appearance Clear, Urine pH 7.0, Ur Specific [place] 1.010, Urine Protein Negative, Urine Glucose (UA) Negative, Urine Ketones Negative, Urine Blood Negative, Urine Nitrate Negative, Urine Bilirubin Negative, Urine Urobilinogen 0.2, Ur Leukocyte Esterase Negative, Urine RBC None, Urine WBC Occasional, Ur Squamous Epith Cells Occasional, Urine Bacteria Trace 05/11/22 06:03: WBC 13.4 H, RBC 3.42 L, Hgb 9.2 L, Hct 28.4 L, MCV 83.1, MCH 26.9 L, MCHC 32.4, RDW 17.9 H, Plt Count 213, MPV 9.2, Neut % (Auto) 76.8, Lymph % (Auto) 15.4, [place] % (Auto) 5.0, Eos % (Auto) 2.1, Baso % (Auto) 0.8, Neut # (Auto) 10.3 H, Lymph # (Auto) 2.1, [place] # (Auto) 0.7, Eos # (Auto) 0.3, Baso # (Auto) 0.1 05/11/22 06:03: Sodium 139, Potassium 3.3 L D, Chloride 116 H, Carbon Dioxide 17 L, Anion Gap 9.3, BUN 17 D, Creatinine 1.30 H D, Estimated Creat Clear 46, Estimated GFR 43 L, Est GFR ( Amer) 51 L D, Glucose 106 H, Calcium 7.8 L I & O for Last 24 hours: Intake & Output 05/08/22 05/09/22 05/10/22 05/11/22 11:59 11:59 11:59 11:59 Intake Total 2091 / 2091 3272 / 3272 2166 / 2166 Output Total 150 / 150 750 / 750 650 / 650 Balance 1941 / 1941 2522 / 2522 1516 / 1516 Weight 117 lb 1 oz 123 lb 3.2 oz 131 lb 8 oz Microbiology Reports for the Last 24 Hours: Microbiology 05/09/22 15:30 Sputum - Expectorated Sputum Gram Stain - Final 05/09/22 15:30 Sputum - Expectorated Sputum Sputum Culture - Preliminary 05/09/22 11:15 Nose - Nasal MRSA Culture - Final Negative 05/09/22 04:54 Blood Blood Culture - Preliminary NO GROWTH AFTER 48 HOURS 05/09/22 04:54 Blood Blood Culture - Preliminary NO GROWTH AFTER 48 HOURS - Constitutional no acute distress - *Routine HEENT Exam Head: Present: normocephalic Eye: Present: PERRL ENT: Present: mucous membranes moist - *Routine Neck Exam Present: supple. Absent: lymphadenopathy - *Routine Respiratory Exam Present: rhonchi, wheezes - *Routine Cardiovascular Exam Present: RRR - *Routine Abdominal Exam Present: soft, normoactive bowel sounds. Absent: tenderness - *Routine Extremities Exam Absent: cyanosis, clubbing, edema - *Routine Skin Exam Present: warm. Absent: rash - *Routine Neurological Exam Present: alert, oriented X3 Assessment and Plan (1) COPD exacerbation Status: Acute Category: Medical Code(s): J44.1 - Chronic obstructive pulmonary disease with (acute) exacerbation (2) Renal insufficiency Status: Acute Category: Medical Code(s): N28.9 - Disorder of kidney and ureter, unspecified (3) Acute exacerbation of chronic obstructive airways disease Status: Acute Category: Medical Code(s): J44.1 - Chronic obstructive pulmonary disease with (acute) exacerbation (4) COVID-19 Status: Acute Category: Medical Code(s): U07.1 - COVID-19 (5) HUGO (acute kidney injury) Status: Acute Category: Medical Code(s): N17.9 - Acute kidney failure, unspecified - Assessment and plan all Dx Assessment and Plan for all problems:: rounded with dr barron all orders per dr barron continue plan pulm to follow
[2022-05-11 12:00] VITALS: BP 127/72; PULSE 98; RESP 18; TEMP 36.6; O2SAT 95
--- NOTE | 2022-05-11 14:15 | HMH.DCSUM ---
General - General Admission date:: 05/09/22 Discharge date: 05/11/22 HPI HPI: 56-year-old female patient with positive COVID presented to the emergency department via EMS with increasing shortness of breath and nausea. She reports she has taken Zofran at 1700 and was reporting nausea upon arrival. EMS reports a DuoNeb in route to hospital. She denies fever/chills/body aches and nausea denies vomiting or diarrhea. She does have a longstanding history of COPD and until last week was a 1 to 1-1/2 pack a day smoker for 40 years Hospital Course Hospital Course: Abnormal Lab Results 05/11/22 06:03: WBC 13.4 H, RBC 3.42 L, Hgb 9.2 L, Hct 28.4 L, MCH 26.9 L, RDW 17.9 H, Neut # (Auto) 10.3 H 05/11/22 06:03: Potassium 3.3 L D, Chloride 116 H, Carbon Dioxide 17 L, Creatinine 1.30 H D, Estimated GFR 43 L, Est GFR ( Amer) 51 L D, Glucose 106 H, Calcium 7.8 L Microbiology 05/09/22 15:30 Gram Stain - Final Sputum - Expectorated Sputum Sputum Culture - Preliminary 05/09/22 11:15 MRSA Culture - Final Nose - Nasal Negative 05/09/22 04:54 Blood Culture - Preliminary Blood NO GROWTH AFTER 48 HOURS 05/09/22 04:54 Blood Culture - Preliminary Blood NO GROWTH AFTER 48 HOURS Discharge Plan (1) COPD exacerbation-Flutter valve and incentive spirometry,Continue Trelegy 100 inhaler along with DuoNebs every 6 hours on as-needed basis (2) Renal insufficiency-stable,improved, check bmp in 1 week (3) Acute exacerbation of chronic obstructive airways disease-Nasal MRSA PCR negative. Blood cultures no growth 48 hours. Pulmonary sputum gram-positive cocci. will continue ceftiner and zithromax- due to kidney function will hold levaquin (4) UPPAS-57-ycuwrvptr treatment (5) HUGO (acute kidney injury)-Improving Cr, Pulmonary consult:Assessment and plan all Dx Assessment and Plan for all problems:: #COVID-19 pneumonia: #History of COPD: 51 Y/O female history of COPD recently admitted to the hospital for COVID-19 pneumonia discharged on Paxlovid Patient denies any worsening respiratory distress. Saturating 93% on room air. Mild wheezing. Chest x-ray on admission clear with no acute pulmonary infiltrates. Unchanged from her most recent discharge. Neutrophilic leukocytosis with white count of 25.0 on admission. Also noted to have HUGO on CKD with creatinine over 3.4. Significant hypokalemia also noted on admission Interval update: Improving leukocytosis. Denies any new respiratory complaints. Stable oxygen requirements. Saturating 93 to 96% on room air. Improving Cr, worsening Hypokalemia improved still at 3.3 Nasal MRSA PCR negative. Blood cultures no growth 48 hours. Pulmonary sputum gram-positive cocci. Plan: -Flutter valve and incentive spirometry -Wean Abx to levofloxacin to complete a total of 7 days upon discharge -Continue Trelegy 100 inhaler along with DuoNebs every 6 hours on as-needed basis. Objective Vital signs: Temp Pulse Resp BP Pulse Ox 97.8 F 83 19 146/75 H 97 05/11/22 08:00 05/11/22 08:00 05/11/22 08:00 05/11/22 08:00 05/11/22 08:00 no acute distress - *Routine HEENT Exam Head: Present: normocephalic Eye: Present: PERRL ENT: Present: mucous membranes moist - *Routine Neck Exam Present: supple - *Routine Respiratory Exam Present: CTA bilaterally - *Routine Cardiovascular Exam Present: RRR - *Routine Abdominal Exam Present: soft, normoactive bowel sounds. Absent: tenderness - *Routine Extremities Exam Absent: cyanosis, clubbing, edema - *Routine Skin Exam Present: warm. Absent: rash - *Routine Neurological Exam Present: alert, oriented X3 Results Labs on day of discharge: Labs from last 24 hours 05/11/22 05/11/22 05/10/22 06:03 06:03 18:55 WBC 13.4 H RBC 3.42 L Hgb 9.2 L Hct 28.4 L MCV 83.1 MCH 26.9 L MCHC 32.4 RDW 17.9 H Plt Count 213 MPV 9.2 Neut % (Auto) 76.8 Lymph % (Auto) 15.4
--- NOTE | 2022-05-17 15:13 | CARE MANAGER ---
Called and spoke with Ms. Rush today regarding her post discharge status. Patient states that she is feeling better and continues to take her medications prescribed at discharge. Patient confirmed that she is planning to attend her f/u appt scheduled for tomorrow. She is also planning to attend Dr. Orourke f/u.
== END 2022-05-11 15:09 | disposition home or self-care (01) ==
LOC: ER 00:16 → 2ND 06:44
PROVIDERS: Internal Medicine Pulmonary Disease; Nurse Practitioner Family; Admitting Provider Emergency Medicine; Emergency Provider Emergency Medicine; PCP Emergency Medicine; Visit Provider Emergency Medicine
DX: U07.1 COVID-19 (principal); J12.82 Pneumonia due to coronavirus disease 2019; I12.9 Hypertensive chronic kidney disease with stage 1 through stage 4 chronic kidney disease, or unspecified chronic kidney disease; I50.9 Heart failure, unspecified; N17.9 Acute kidney failure, unspecified; F17.210 Nicotine dependence, cigarettes, uncomplicated; I65.23 Occlusion and stenosis of bilateral carotid arteries; J44.1 Chronic obstructive pulmonary disease with (acute) exacerbation; Z88.8 Allergy status to other drugs, medicaments and biological substances; N18.9 Chronic kidney disease, unspecified; E87.6 Hypokalemia
CPT/HCPCS: 36415; 71046; 80048; 80053; 80305; 81001; 83605; 84145; 85007; 85025; 85651; 86140; 87040; 87070; 87077; 87081; 87186; 87205; 94640; 99285; C9803; G0378; J0574; J2405; U0003; U0005

== ENCOUNTER 2022-06-22 20:04 | Emergency (ER) | payer OTHER, SELFPAY ==
[2022-06-22 20:03] VITALS: BP 152/90; PULSE 99; RESP 28; TEMP 36.6; O2SAT 88; BMI 23.9
--- NOTE | 2022-06-22 20:11 | ECG_ITS ---
APPROVED REPORT Exam: Resting ECG HR:96 bpm ECG Measurements Heart Rate 96 AXES NM 142 P 66 QRSd 90 QRS 63 QT 350 T 73 QTc 404 Conclusion SINUS RHYTHM NORMAL ECG UNCONFIRMED REPORT Electronically signed by : Evaristo Gonzalez MD 06/23/2022 21:39:05
[2022-06-22 20:21] LABS: ABG Base Excess -2.3 mmol/L (-2.4-2.3); ABG HCO3 22.6 mmhg (22.0-26.0); ABG Oxygen Saturation 91 % (90-100); ABG PCO2 37.8 mmhg (35.0-45.0); ABG PH 7.39 mmol/L (7.35-7.45); ABG TCO2 23.7 mmhg (23-27)
[2022-06-22 20:22] VITALS: BMI 23.9
--- NOTE | 2022-06-22 20:24 | XR_ITS ---
PROCEDURE INFORMATION: Exam: XR Chest Exam date and time: 06/22/2022 8:31 PM Age: 56 years old Clinical indication: Shortness of breath; Additional info: SOA, poss covid 19 TECHNIQUE: Imaging protocol: Radiologic exam of the chest. Views: 2 views. COMPARISON: CR XR CHEST 2V 05/09/2022 1:03 AM FINDINGS: Airway: Patent Lungs: Bilateral perihilar haziness and streaky-like opacities. Mild segmental bronchial wall thickening. Subtle ground-glass airspace opacities in the right lung base. Remainder of the lungs are clear. Pleural spaces: Unremarkable. No pleural effusion. No pneumothorax. Heart/Mediastinum: Unremarkable. No cardiomegaly. Bones/joints: No acute skeletal abnormality or aggressive osseous lesion. IMPRESSION: Findings most in favor with an acute viral illness/bronchitis. Atypical viral pneumonia is of concern.
[2022-06-22 20:34] LABS: Coronavirus 19, PCR Not Detected (NotDetected); Influenza A, PCR Not Detected (NotDetected); Influenza B, PCR Not Detected (NotDetected)
[2022-06-22 20:36] LABS: Microscopic, Urine URINE MICROSCOPIC (MICROSCOPIC)
[2022-06-22 20:39] LABS: Appearance,Urine CLEAR (Clear); Bilirubin,Urine Negative (Negative); Blood, Urine Negative (Negative); Color,Urine YELLOW (Yellow); Glucose,Urine (UA) Negative (Negative); Ketones,Urine Negative (Negative); Leukocyte Esterase,Urine TRACE (Negative); Nitrate,Urine Negative (Negative); Protein,Urine Negative (Negative); Urobilinogen,Urine 0.2 EU/dl (0.2)
[2022-06-22 20:43] LABS: Alanine Aminotransferase 12 U/L (12-78); Albumin Level 3.2 g/dl (3.5-5.0); Alkaline Phosphatase 73 U/L (38-126); Anion Gap 9.7 mEq/L (5-15); Aspartate Amino Transferase 23 U/L (14-36); Blood Urea Nitrogen 20 mg/dl (7-17); Calcium 8.4 mg/dl (8.4-10.2); Carbon Dioxide 24 mmol/L (22.0-30.0); Chloride 111 mmol/L (98-107); Creatinine Clearance Estimated 54 mL/min (50-200); Estimated Glomerular Filt Rate 52 ml/min (>60); GFR (African American) 62 ML/MIN (>60); Globulin 3.3 g/dL (1.3-3.2); Glucose 87 mg/dl (74-100); Potassium 3.7 mmoL/L (3.5-5.1); Sodium 141 mmol/L (136-145); Total Protein,Serum 6.5 g/dl (6.3-8.2)
[2022-06-22 20:44] LABS: Lactic Acid 0.8 mmol/L (0.7-2.1); Magnesium 1.7 mg/dl (1.6-2.3)
[2022-06-22 20:49] LABS: Bilirubin,Total < 0.1 mg/dl (0.2-1.3); C-Reactive Protein 8.9 mg/L (0-4)
[2022-06-22 20:50] LABS: Basophils # 0.1 K/mm3 (0-0.2); Basophils % 0.5 % (0.1-2.0); Mean Corpuscular Volume 86.1 fl (81-99); Red Blood Count 3.33 M/mm3 (4.20-5.40); Red Cell Distribution Width 17.5 % (11.5-17.5)
[2022-06-22 20:56] LABS: Eosinophils # 0.3 K/mm3 (0.0-0.4); Eosinophils % 2.2 % (0.1-12.0); Hemoglobin 8.8 g/dL (12.2-16.2); Lymphocytes # 2.6 K/mm3 (0.7-4.5); Lymphocytes % 16.6 % (10-50); Mean Corpuscular HGB Conc 30.7 g/dL (31.8-35.4); Mean Corpuscular Hemoglobin 26.4 pg (27.0-31.2); Mean Platelet Volume 8.3 fl (7.4-10.4); Monocytes # 0.9 K/mm3 (0.1-1.0); Monocytes % 6.1 % (1.7-9.3); Neutrophils # 11.5 K/mm3 (1.8-7.8); Neutrophils % 74.6 % (37.0-80.0); Platelet Count 431 K/mm3 (142-424); White Blood Count 15.4 K/mm3 (4.8-10.8)
[2022-06-22 20:58] LABS: Hematocrit 28.6 % (37.0-47.0); Troponin I < 0.01 ng/ml (0.00-0.034)
[2022-06-22 21:00] LABS: MANUAL DIFFERENTIAL MANUAL DIFFERENTIAL (MANUAL DIFF)
[2022-06-22 21:02] LABS: Procalcitonin 0.087 ng/mL (0.0-2.0)
--- NOTE | 2022-06-22 21:06 | HMH.EDSOB ---
ED Disposition Clinical Impression: Acute exacerbation of chronic obstructive airways disease, Tobacco abuse Anemia Qualifiers: Anemia type: unspecified type Qualified Code(s): D64.9 - Anemia, unspecified Disposition: Home, Self-Care Condition on Discharge: Fair Instructions: DI for Chronic Obstructive Pulmonary Disease Additional Instructions: see pcp saturday for follow up Referrals: Chuck Pineda MD [Primary Care Provider] - - Critical Care Critical Care Time: No Attestation: On 06/22/22, the high probability of a clinically significant, sudden or life threatening deterioration of the following system(s) required my full and direct attention, intervention and personal management. The time I documented below is in addition to time spent performing reported procedures but includes the following listed in this critical care notation. Medical Decision Making - Medical Records Medical records reviewed: Yes: I reviewed the patient's medical records. - Berry Inquiry Pt receiving controlled substance: No Vital Signs: 06/22/22 20:03 Temperature 97.8 F Temperature Source Oral Pulse Rate [Right] 99 H Respiratory Rate 28 H Blood Pressure [Right Arm] 152/90 H Blood Pressure Mean [Right Arm] 110 Blood Pressure Source [Right Arm] Automatic Cuff 02 Sat by Pulse Oximetry 88 L Oxygen Delivery Method Room Air - Lab Data Lab results reviewed: Yes: I reviewed the patient's lab results. Lab Results 06/22/22 20:14: SARS-CoV-2 (PCR) Not detected, Influenza A Untype (PCR) Not detected, Influenza Type B (PCR) Not detected 06/22/22 20:15: Lactate 0.8 06/22/22 20:15: WBC 15.4 H, RBC 3.33 L, Hgb 8.8 L, Hct 28.6 L, MCV 86.1, MCH 26.4 L, MCHC 30.7 L, RDW 17.5, Plt Count 431 H, MPV 8.3, Neut % (Auto) 74.6, Lymph % (Auto) 16.6, Barren % (Auto) 6.1, Eos % (Auto) 2.2, Baso % (Auto) 0.5, Neut # (Auto) 11.5 H, Lymph # (Auto) 2.6, Barren # (Auto) 0.9, Eos # (Auto) 0.3, Baso # (Auto) 0.1, Total Counted 100, Neutrophils % (Manual) 81 H, Band Neutrophils % 6.0, Lymphocytes % (Manual) 11, Monocytes % (Manual) 2, Platelet Estimate Normal, RBC Morphology Not Reportable, Hypochromasia 1+, Anisocytosis 1+, Rouleaux 1+, ESR 73 H 06/22/22 20:15: Sodium 141, Potassium 3.7, Chloride 111 H, Carbon Dioxide 24, Anion Gap 9.7, BUN 20 H, Creatinine 1.10 H, Estimated Creat Clear 54, Estimated GFR 52 L, Est GFR ( Amer) 62, Glucose 87, Calcium 8.4, Total Bilirubin < 0.1 L, AST 23, ALT 12, Alkaline Phosphatase 73, Troponin I < 0.01, C-Reactive Protein 8.9 H, Total Protein 6.5, Albumin 3.2 L, Globulin 3.3 H, Albumin/Globulin Ratio 1.0 L, Procalcitonin 0.087 06/22/22 20:15: Magnesium 1.7 06/22/22 20:19: ABG pH 7.39, ABG pCO2 37.8, ABG pO2 62.0 L, ABG HCO3 22.6, ABG Total CO2 23.7, ABG O2 Saturation 91, ABG Base Excess -2.3 06/22/22 20:26: Urine Color Yellow, Urine Appearance Clear, Urine pH 7.0, Ur Specific [place] 1.010, Urine Protein Negative, Urine Glucose (UA) Negative, Urine Ketones Negative, Urine Blood Negative, Urine Nitrate Negative, Urine Bilirubin Negative, Urine Urobilinogen 0.2, Ur Leukocyte Esterase Trace, Urine RBC None, Urine WBC 3-5, Ur Squamous Epith Cells 3-5, Urine Bacteria None Result diagrams: 06/22/22 20:15 06/22/22 20:15 Orders (Tests/Meds): ED MEDICATIONS Discontinued Medications Generic Name Dose Route Start Last Admin Trade Name Freq PRN Reason Stop Dose Admin Dexamethasone Sodium Phosphate 10 mg 06/22/22 20:29 06/22/22 21:23 Dexamethasone 4mg/Ml 5ml Mdv IV 06/22/22 20:30 10 mg ONCE ONE Administration ORDERS Category Date Time Status Troponin I Q3H Lab 06/22/22 23:30 Ordered Troponin I Q3H Lab 06/23/22 02:30 Ordered ABG [Arterial Blood Gas] Stat RT 06/22/22 20:23 Ordered - Radiology Data #1 Image(s): Chest Image Reviewed: Yes I have reviewed radiologist's interpretation Preliminary Findings: Normal/NAD - ECG Data Tracing #1 Normal Sinus Rhythm: Yes Ischemic changes: non-s
[2022-06-22 21:23] LABS: Erythrocyte Sedimentation Rate 73 mm/hr (0-30)
[2022-06-22 21:31] LABS: Anisocytosis 1+; Hypochromasia 1+; Lymphocytes % 11 % (10-50); Monocytes % 2 % (2-9); Neutrophils % 81 % (42-76); Platelet Estimate Normal; Rouleaux 1+; Total Cells Counted 100
[2022-06-22 22:22] VITALS: BP 150/88; PULSE 89; RESP 18; TEMP 36.8; O2SAT 99
== END 2022-06-22 22:24 | disposition home or self-care (01) ==
PROVIDERS: Emergency Provider Emergency Medicine; PCP Emergency Medicine
DX: J44.1 Chronic obstructive pulmonary disease with (acute) exacerbation (principal); U07.1 COVID-19; R06.02 Shortness of breath; D64.9 Anemia, unspecified; R53.82 Chronic fatigue, unspecified; R51.9 Headache, unspecified; Z20.822 Contact with and (suspected) exposure to COVID-19; I11.0 Hypertensive heart disease with heart failure; I50.9 Heart failure, unspecified; R01.1 Cardiac murmur, unspecified; I65.29 Occlusion and stenosis of unspecified carotid artery; I25.10 Atherosclerotic heart disease of native coronary artery without angina pectoris; I38 Endocarditis, valve unspecified; I70.1 Atherosclerosis of renal artery; I35.1 Nonrheumatic aortic (valve) insufficiency; E78.5 Hyperlipidemia, unspecified; J98.4 Other disorders of lung; M54.9 Dorsalgia, unspecified; M19.90 Unspecified osteoarthritis, unspecified site; B19.20 Unspecified viral hepatitis C without hepatic coma; G47.00 Insomnia, unspecified; F32.A Depression, unspecified; F41.9 Anxiety disorder, unspecified; F17.200 Nicotine dependence, unspecified, uncomplicated; Z79.02 Long term (current) use of antithrombotics/antiplatelets; Z79.1 Long term (current) use of non-steroidal anti-inflammatories (NSAID); Z79.51 Long term (current) use of inhaled steroids; Z79.890 Hormone replacement therapy; Z99.81 Dependence on supplemental oxygen; Z79.899 Other long term (current) drug therapy; Z88.5 Allergy status to narcotic agent; Z88.6 Allergy status to analgesic agent; Z82.49 Family history of ischemic heart disease and other diseases of the circulatory system
CPT/HCPCS: 71046; 80053; 81001; 82803; 83605; 83735; 84145; 84484; 85007; 85025; 85651; 86140; 93005; 96374; 99285; C9803; U0003; U0005

== ENCOUNTER 2022-06-23 00:20 | Emergency (ER) | payer OTHER, SELFPAY ==
--- NOTE | 2022-06-23 00:32 | PC.NURSE ---
I observed patient when she returned from the bathroom getting into her purse that was at the bedside, when I entered the room and asked what she took patient responded my clonazepam , I informed patient that she was not allowed to take her home meds while in the ER without OK from physician patient stated that she was not aware of that. ER doctor and nurse informed of situation.
[2022-06-23 00:35] VITALS: BP 165/95; PULSE 94; RESP 18; TEMP 36.8; O2SAT 99; BMI 29.9
--- NOTE | 2022-06-23 00:50 | ECG_ITS ---
APPROVED REPORT Exam: Resting ECG HR:95 bpm ECG Measurements Heart Rate 95 AXES [place] 141 P 74 QRSd 85 QRS 69 QT 349 T 76 QTc 402 Conclusion SINUS RHYTHM NORMAL ECG UNCONFIRMED REPORT Electronically signed by : Evaristo Gonzalez MD 06/23/2022 21:38:43
[2022-06-23 00:55] LABS: Amphetamine/Metha Screen,Urine Negative ng/ml (<1000)
[2022-06-23 00:56] LABS: Barbiturates Screen,Urine Negative ng/ml (<200)
[2022-06-23 00:57] LABS: Benzodiazepines Screen,Urine Negative ng/ml (<200); Cannabinoid Screen,Urine Negative ng/ml (<50)
[2022-06-23 00:58] LABS: Cocaine Screen,Urine Negative ng/ml (<300); Methadone Screen,Urine Negative ng/ml (<300)
[2022-06-23 00:59] LABS: Opiate Screen,Urine Negative ng/ml (<300)
[2022-06-23 01:00] LABS: Phencyclidine Screen,Urine Negative ng/ml (<25)
[2022-06-23 01:06] LABS: Chloride 114 mmol/L (98-107)
[2022-06-23 01:07] LABS: Sodium 141 mmol/L (136-145)
[2022-06-23 01:08] LABS: Potassium 3.9 mmoL/L (3.5-5.1)
[2022-06-23 01:09] LABS: Alanine Aminotransferase 20 U/L (12-78); Alkaline Phosphatase 77 U/L (38-126); Aspartate Amino Transferase 28 U/L (14-36); Blood Urea Nitrogen 19 mg/dl (7-17); Creatinine Clearance Estimated 75 mL/min (50-200); Estimated Glomerular Filt Rate 58 ml/min (>60); GFR (African American) 70 ML/MIN (>60)
[2022-06-23 01:10] LABS: Anion Gap 9.9 mEq/L (5-15); Carbon Dioxide 21 mmol/L (22.0-30.0)
[2022-06-23 01:11] LABS: Albumin Level 3.5 g/dl (3.5-5.0); Albumin/Globulin Ratio 1.1 (1.1-1.8); Calcium 8.8 mg/dl (8.4-10.2); Globulin 3.2 g/dL (1.3-3.2); Total Protein,Serum 6.7 g/dl (6.3-8.2)
[2022-06-23 01:12] LABS: Bilirubin,Total < 0.1 mg/dl (0.2-1.3); Glucose 138 mg/dl (74-100)
[2022-06-23 01:23] LABS: Troponin I < 0.01 ng/ml (0.00-0.034)
--- NOTE | 2022-06-23 02:21 | PC.NURSE ---
pt does not want to wait for any further tests. She had her ride come pick her up.
[2022-06-23 02:22] VITALS: BP 135/78; PULSE 87; RESP 20; TEMP 36.7; O2SAT 94
== END 2022-06-23 02:39 | disposition left against medical advice (07) ==
PROVIDERS: Emergency Provider Emergency Medicine; PCP Emergency Medicine
DX: Z53.21 Procedure and treatment not carried out due to patient leaving prior to being seen by health care provider (principal)
CPT/HCPCS: 80053; 80305; 84484; 93005; 99211

== ENCOUNTER 2022-06-24 03:23 | Observation (INO) | payer OTHER, SELFPAY ==
[2022-06-24] VITALS (17 sets, daily range): BP systolic 110–169; BP diastolic 67–92; PULSE 74–109; RESP 16–24; TEMP 36.4–36.7; O2SAT 92–99; BMI 23.9; BMI 22.5
--- NOTE | 2022-06-24 03:21 | XR_ITS ---
PROCEDURE INFORMATION: Exam: XR Chest Exam date and time: 06/24/2022 3:38 AM Age: 56 years old Clinical indication: Shortness of breath and other: Weakness; Additional info: SOA, weak TECHNIQUE: Imaging protocol: Radiologic exam of the chest. Views: 1 view. Total images: 1089 COMPARISON: CR XR CHEST 2V 06/22/2022 8:31 PM FINDINGS: Lungs: Nonspecific opacity in the medial right lung base, favoring mildly improving densities of pneumonia/atypical pneumonia. Nonspecific patchy left basilar opacity is similar to prior. Pleural spaces: Unremarkable. No pleural effusion. No pneumothorax. Heart/Mediastinum: Unremarkable. No cardiomegaly. Bones/joints: Unremarkable. IMPRESSION: Nonspecific opacity in the medial right lung base, favoring mildly improving densities of pneumonia/atypical pneumonia. Nonspecific patchy left basilar opacity is similar to prior.
[2022-06-24 03:33] LABS: ABG Base Excess -1.4 mmol/L (-2.4-2.3); ABG HCO3 23.5 mmhg (22.0-26.0); ABG Oxygen Saturation 95 % (90-100); ABG PCO2 39.5 mmhg (35.0-45.0); ABG PH 7.39 mmol/L (7.35-7.45); ABG PO2 83.8 mmhg (80-100); ABG TCO2 24.7 mmhg (23-27)
[2022-06-24 03:34] LABS: Allen's Test Y; Oxygen 4 %; Source Right Radial
[2022-06-24 03:34] LABS: Basophils # 0.1 K/mm3 (0-0.2); Basophils % 0.3 % (0.1-2.0); Eosinophils # 0.3 K/mm3 (0.0-0.4); Eosinophils % 1.8 % (0.1-12.0); Hemoglobin 9.1 g/dL (12.2-16.2); Lymphocytes # 2.2 K/mm3 (0.7-4.5); Lymphocytes % 11.8 % (10-50); Mean Corpuscular HGB Conc 31.3 g/dL (31.8-35.4); Mean Corpuscular Volume 83.2 fl (81-99); Mean Platelet Volume 7.2 fl (7.4-10.4); Monocytes # 0.8 K/mm3 (0.1-1.0); Monocytes % 4.2 % (1.7-9.3); Neutrophils # 15.2 K/mm3 (1.8-7.8); Neutrophils % 81.9 % (37.0-80.0); Platelet Count 448 K/mm3 (142-424); Red Blood Count 3.48 M/mm3 (4.20-5.40); Red Cell Distribution Width 17.8 % (11.5-17.5); White Blood Count 18.5 K/mm3 (4.8-10.8)
[2022-06-24 03:38] LABS: MANUAL DIFFERENTIAL MANUAL DIFFERENTIAL (MANUAL DIFF)
[2022-06-24 03:47] LABS: Alanine Aminotransferase 14 U/L (12-78); Albumin Level 3.4 g/dl (3.5-5.0); Alkaline Phosphatase 73 U/L (38-126); Anion Gap 7.9 mEq/L (5-15); Aspartate Amino Transferase 28 U/L (14-36); Blood Urea Nitrogen 20 mg/dl (7-17); Calcium 8.9 mg/dl (8.4-10.2); Carbon Dioxide 24 mmol/L (22.0-30.0); Chloride 113 mmol/L (98-107); Creatinine Clearance Estimated 54 mL/min (50-200); Estimated Glomerular Filt Rate 52 ml/min (>60); GFR (African American) 62 ML/MIN (>60); Globulin 3.4 g/dL (1.3-3.2); Glucose 97 mg/dl (74-100); Potassium 3.9 mmoL/L (3.5-5.1); Sodium 141 mmol/L (136-145); Total Protein,Serum 6.8 g/dl (6.3-8.2)
[2022-06-24 03:47] LABS: Microscopic, Urine URINE MICROSCOPIC (MICROSCOPIC)
[2022-06-24 03:49] LABS: Appearance,Urine CLEAR (Clear); Bilirubin,Urine Negative (Negative); Blood, Urine Negative (Negative); Color,Urine YELLOW (Yellow); Glucose,Urine (UA) Negative (Negative); Ketones,Urine Negative (Negative); Leukocyte Esterase,Urine Negative (Negative); Nitrate,Urine Negative (Negative); Protein,Urine Negative (Negative); Urobilinogen,Urine 0.2 EU/dl (0.2)
[2022-06-24 03:52] LABS: C-Reactive Protein 21.8 mg/L (0-4)
[2022-06-24 03:55] LABS: Amorphous Sediment,Urine Trace /lpf
[2022-06-24 03:57] LABS: Anisocytosis 2+; Hypochromasia 1+; Lymphocytes % 9 % (10-50); Monocytes % 1 % (2-9); Neutrophils % 88 % (42-76); Platelet Estimate Slight Increase; Poikilocytosis 1+; Total Cells Counted 100
[2022-06-24 03:58] LABS: Bilirubin,Total < 0.1 mg/dl (0.2-1.3)
[2022-06-24 03:59] LABS: NT Pro Brain Natriuretic Pep. 1690 pg/mL (0-125)
[2022-06-24 03:59] LABS: Benzodiazepines Screen,Urine Negative ng/ml (<200)
[2022-06-24 04:00] LABS: Amphetamine/Metha Screen,Urine Negative ng/ml (<1000)
[2022-06-24 04:01] LABS: Barbiturates Screen,Urine Negative ng/ml (<200)
[2022-06-24 04:02] LABS: Cannabinoid Screen,Urine Negative ng/ml (<50); Cocaine Screen,Urine Negative ng/ml (<300)
[2022-06-24 04:03] LABS: Methadone Screen,Urine Negative ng/ml (<300); Opiate Screen,Urine Negative ng/ml (<300)
[2022-06-24 04:04] LABS: Phencyclidine Screen,Urine Negative ng/ml (<25)
[2022-06-24 04:04] LABS: Troponin I < 0.01 ng/ml (0.00-0.034)
[2022-06-24 04:06] LABS: Erythrocyte Sedimentation Rate 139 mm/hr (0-30); Procalcitonin 0.066 ng/mL (0.0-2.0)
--- NOTE | 2022-06-24 04:33 | HMH.EDSOB ---
ED Disposition Clinical Impression: Acute exacerbation of chronic obstructive airways disease, Severe aortic regurgitation, Tobacco abuse, LVH (left ventricular hypertrophy), Elevated erythrocyte sedimentation rate, Diastolic dysfunction, SIRS (systemic inflammatory response syndrome) Anemia Qualifiers: Anemia type: unspecified type Qualified Code(s): D64.9 - Anemia, unspecified Congestive heart failure Qualifiers: Heart failure type: diastolic Heart failure chronicity: acute on chronic Qualified Code(s): I50.33 - Acute on chronic diastolic (congestive) heart failure Disposition: Admitted As Inpatient Condition on Discharge: Fair Referrals: Chuck Pineda MD [Primary Care Provider] - - Critical Care Critical Care Time: No Attestation: On 06/24/22, the high probability of a clinically significant, sudden or life threatening deterioration of the following system(s) required my full and direct attention, intervention and personal management. The time I documented below is in addition to time spent performing reported procedures but includes the following listed in this critical care notation. Medical Decision Making - Medical Records Medical records reviewed: Yes: I reviewed the patient's medical records. - Berry Inquiry Pt receiving controlled substance: No Vital Signs: 06/24/22 03:17 Temperature 97.6 F Temperature Source Oral Pulse Rate [Apical] 98 H Respiratory Rate 18 Blood Pressure [Right Arm] 150/86 H Blood Pressure Mean [Right Arm] 107 Blood Pressure Source [Right Arm] Automatic Cuff Blood Pressure Position [Right Arm] Sitting 02 Sat by Pulse Oximetry 95 Oxygen Delivery Method Room Air - Lab Data Lab results reviewed: Yes: I reviewed the patient's lab results. Lab Results 06/24/22 03:20: WBC 18.5 H, RBC 3.48 L, Hgb 9.1 L, Hct 29.0 L, MCV 83.2, MCH 26.0 L, MCHC 31.3 L, RDW 17.8 H, Plt Count 448 H, MPV 7.2 L, Neut % (Auto) 81.9 H, Lymph % (Auto) 11.8, [place] % (Auto) 4.2, Eos % (Auto) 1.8, Baso % (Auto) 0.3, Neut # (Auto) 15.2 H, Lymph # (Auto) 2.2, [place] # (Auto) 0.8, Eos # (Auto) 0.3, Baso # (Auto) 0.1, Total Counted 100, Neutrophils % (Manual) 88 H, Band Neutrophils % 2.0, Lymphocytes % (Manual) 9 L, Monocytes % (Manual) 1 L, Platelet Estimate Slight increase, Hypochromasia 1+, Poikilocytosis 1+, Anisocytosis 2+, ESR 139 H 06/24/22 03:20: Sodium 141, Potassium 3.9, Chloride 113 H, Carbon Dioxide 24, Anion Gap 7.9, BUN 20 H, Creatinine 1.10 H, Estimated Creat Clear 54, Estimated GFR 52 L, Est GFR ( Amer) 62, Glucose 97, Calcium 8.9, Total Bilirubin < 0.1 L, AST 28, ALT 14 D, Alkaline Phosphatase 73, Troponin I < 0.01, C-Reactive Protein 21.8 H D, Total Protein 6.8, Albumin 3.4 L, Globulin 3.4 H, Albumin/Globulin Ratio 1.0 L, Procalcitonin 0.066 06/24/22 03:20: Lactate 1.0 06/24/22 03:20: NT-Pro-B Natriuret Pep 1690 H 06/24/22 03:21: Specimen Source Right radial, O2 % 4, ABG pH 7.39, ABG pCO2 39.5, ABG pO2 83.8, ABG HCO3 23.5, ABG Total CO2 24.7, ABG O2 Saturation 95, ABG Base Excess -1.4, Rohan Test Y 06/24/22 03:40: Urine Color Yellow, Urine Appearance Clear, Urine pH 7.0, Ur Specific [place] 1.010, Urine Protein Negative, Urine Glucose (UA) Negative, Urine Ketones Negative, Urine Blood Negative, Urine Nitrate Negative, Urine Bilirubin Negative, Urine Urobilinogen 0.2, Ur Leukocyte Esterase Negative, Amorphous Sediment Trace 06/24/22 03:40: Urine Opiates Screen Negative, Urine Methadone Screen Negative, Ur Barbituates Screen Negative, Ur Phencyclidine Scrn Negative, Ur Amphetamines Screen Negative, U Benzodiazepines Scrn Negative, Urine Cocaine Screen Negative, U Marijuana (THC) Screen Negative 06/24/22 05:50: SARS-CoV-2 (PCR) Not detected, Influenza A Untype (PCR) Not detected, Influenza Type B (PCR) Not detected Result diagrams: 06/24/22 03:20 06/24/22 03:20 Orders (Tests/Meds): ED MEDICATIONS Generic Name Dose Route Start Last Admin Trade Name Freq PRN Reason Stop Dose Admin Sodium Chlori
[2022-06-24 05:52] LABS: Coronavirus 19, PCR Not Detected (NotDetected); Influenza A, PCR Not Detected (NotDetected); Influenza B, PCR Not Detected (NotDetected)
--- NOTE | 2022-06-24 06:07 | PC.NURSE ---
Patient is resting in bed.
--- NOTE | 2022-06-24 06:25 | PC.NURSE ---
PATIENT ADMITTED TO DR. PINO DX OF COPD WITH EXACERBATION TO ROOM 205
--- NOTE | 2022-06-24 06:39 | HMH.HP ---
*Admission Date: 06/24/22 *Chief complaint: sob *History of present illness: this patient presented to the ed with progressive sob and altered mental status despite compliance with home meds - pt had been seen in the ed a few days prior but has progressed since - no chest pain but has hx of chf and has hx of copd - pt was found in ed with abn cxr with sirs and possible aspiration pneumonia and elevated bnp - pt was admitted for eval and treatment as failed op care [facility] History I have reviewed the patient's past medical history: Yes 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: Reports:: Anxiety, Carotid Stenosis, Congestive Heart Failure, Chronic Obstructive Pulmonary Disease (COPD), Coronary Artery Disease, Depression, Gastroesophageal Reflux Disease(GERD), Heart Murmur, Hepatitis, Hiatal Hernia, Hyperlipidemia, Hypertension, Lung Disease, Valvular Heart Disease Denies:: Cancer, Diabetes Mellitus Type 1, Diabetes Mellitus Type 2, Internal Pacemaker, MRSA, Seizures *Have you ever received a pneumonia vaccine?: No *Have you received a flu vaccine this season?: No Other 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: Reports: Arthritis, Other. Denies: Blood Transfusion Reaction Laterality Cases: Left: Arthroscopy Knee, Lumpectomy, Bilateral: Breast Biopsy, Carpal Tunnel Release Other Surgeries: Yes: Cancer Surgery, Cardiac Catheterization, Cholecystectomy, Colonoscopy, Coronary Stent, , Hernia Repair, Hysterectomy-Total, Hysterectomy-Partial, Other. No: Pacemaker Amputation: No Fractures: No - *Social History Smoking Status: Current every day smoker Tobacco Type: cigarettes # Packs/Day (cigarettes): 1 #Yrs smoked (if former smoker): 45 Alcohol Intake: current Alcohol Intake Frequency:: holidays/special occasions only Substance Use Type: denies use *Occupational Status:: unemployed Housing: house Household Members: friend(s) *Travel in the last 8 weeks: None - Psychiatric History Pschychiatric History:: Reports:: Anxiety, Depression Family Hx:: No significant family history Review of Systems - Review of Systems Review of systems:: pertinent systems reviewed and negative unless documented below - Constitutional Denies fever(s) - Eyes Denies change in vision - ENT Denies sore throat - *Cardiovascular Denies chest pain with activity - *Respiratory Reports cough, Reports shortness of breath, Reports wheezing - *Gastrointestinal Denies abdominal pain - *Genitourinary Denies blood in urine - *Musculoskeletal Denies joint pain - Integumentary/Breasts Denies rash - *Neurologic Denies localized weakness, Denies seizure-like activity - Psychiatric Reports anxiety Meds Home Medications Medication Instructions Recorded Confirmed Type buprenorphine 8 mg-naloxone 2 mg 2 tab SL DAILY tab 03/22/21 06/24/22 History sublingual tablet Docusate Sodium 100 mg PO DAILYP PRN 03/04/22 06/24/22 History Aspirin [Low Dose Aspirin EC] 81 mg PO DAILY 04/30/22 06/24/22 History Calcium Carbonate/Vitamin D3 1 tab PO DAILY 04/30/22 06/24/22 History [Super Calcium 600-Vit D3 400] Clopidogrel Bisulfate [Plavix] 75 mg PO DAILY 04/30/22 06/24/22 History Omeprazole 40 mg PO DAILY 04/30/22 06/24/22 History bisoproloL fumarate [Bisoprolol 5 mg PO HS 04/30/22 06/24/22 History Fumarate] estradioL [Estradiol] 1 mg PO DAILY 04/30/22 06/24/22 History Nicotine [Nicoderm 21mg/24hr 21 mg TD DAILYP PRN #30 patch 05/11/22 06/24/22 Rx patch] clonazepam 0.5 mg tablet 0.5 mg PO QIDP PRN #120 tab 06/11/22 06/24/22 Rx gabapentin 800 mg tablet 800 mg PO QID #120 tab 06/11/22 06/24/22 Rx Albuterol Sulfate [Albuterol 1 puff PO TID PRN 06/24/22 06/24/22 History Sulfate 0.63mg/3ml Neb] Albuterol Sulfate [Albuterol 2 puff PO Q6 06/24/22 06/24/22 History Sulfate Hfa] Alendronate Sodium [Fosamax 70mg 70 mg PO WEEKLY 06/24/22 06/24/22 History Tablet] Escitalopram Oxalate 20 mg PO DAILY 06/24/22 06/24/22 History Famotidine 40 mg PO DAILY 06/24/22 06/24/22 History Fluticasone/U
[2022-06-24 07:33] LABS: Troponin I < 0.01 ng/ml (0.00-0.034)
--- NOTE | 2022-06-24 08:32 | PC.NURSE ---
report called to Kandace DUENAS
--- NOTE | 2022-06-24 08:36 | P.CONPHA_ITS ---
[facility] Pharmacy VTE Monitoring - Patient Demographics Admission date: 06/24/22 Report Date: 06/24/22 Time: 08:36 Allergies/Adverse Reactions: Patient Allergies atorvastatin Adverse Reaction (Intermediate, Verified 06/14/22 09:35) myalgia aspirin [ASPIRIN] Adverse Reaction (Unknown, Verified 06/14/22 09:35) codeine [CODEINE] Adverse Reaction (Unknown, Verified 06/14/22 09:35) propoxyphene [PROPOXYPHENE] Adverse Reaction (Unknown, Verified 06/14/22 09:35) tramadol [TRAMADOL] Adverse Reaction (Unknown, Verified 06/14/22 09:35) Height: 1.57 m Weight: 59.421 kg Patient Problems: Current Active Problems (Last Updated 02/24/19 @ 09:01 by SILVA Cat) Acute exacerbation of chronic obstructive airways disease (Acute) Anemia (Acute) LVH (left ventricular hypertrophy) (Acute) Elevated erythrocyte sedimentation rate (Acute) Diastolic dysfunction (Acute) Congestive heart failure (Acute) SIRS (systemic inflammatory response syndrome) (Acute) Tobacco use (Acute) COPD with acute exacerbation (Acute) Severe aortic regurgitation (Acute) Pneumonia (Acute) Tobacco abuse (Chronic) - VTE Risk Labs: VTE Related Lab Results Hgb 9.1 g/dL (12.2-16.2) L 06/24/22 03:20 Hct 29.0 % (37.0-47.0) L 06/24/22 03:20 Plt Count 448 K/mm3 (142-424) H 06/24/22 03:20 BUN 20 mg/dl (7-17) H 06/24/22 03:20 Creatinine 1.10 mg/dl (0.52-1.04) H 06/24/22 03:20 Estimated Creat Clear 54 mL/min (50-200) 06/24/22 03:20 Clinical Trial Participant: No - Prophylaxis VTE Prophylaxis Ordered?: Yes Types of VTE Prophylaxis: TEDS Knee High
--- NOTE | 2022-06-24 08:55 | HMH.PHAINT ---
verified home medicaiton list using list from outpatient pharmacy
--- NOTE | 2022-06-24 09:04 | PC.NURSE ---
2nd floor her to get pt to take her to her room
[2022-06-24 10:26] LABS: Troponin I < 0.01 ng/ml (0.00-0.034)
--- NOTE | 2022-06-24 10:26 | PC.NURSE ---
was in room at [facility] and patient was seen by this telegraphic typewriter operator chief taking a yellow round pill; when asked what she just took patient states klonopin. Patient was asked at that time if she had any pill bottles in her purse and she states no then I asked patient if she had any other loose pills in her possession patient states no that was the only one. Advised patient that she was not allowed to take her own medication because her physician has ordered her medication and it is unsafe for her to take her medications while in the hospital. Pt verbilized understanding. Physician & Organic Extractions Technician notified.
--- NOTE | 2022-06-24 12:19 | PC.NURSE ---
Dwayne kaur from Dr. Pineda for Suboxone 2mg SL -- 2 tabs SL daily DuoNebs every 6 hours scheduled NO CONTROLLED SUBSTANCES (patient had requested Gabapentin)
--- NOTE | 2022-06-24 14:45 | PC.NURSE ---
Patient is leaving AMA states I'm leaving because I feel that I am not going to get the care I need and I'm not getting all my medicine which is Gabapentin, all controlled substances have been denied by provider. Patient has been advised of the risks leaving against medical advice and has verbalized understanding. IV and catheter has been removed per protocol. Patient states her family will be here in a little bit to get her. Patient is oxygen dependent and will remain on oxygen until family arrives.
--- NOTE | 2022-06-25 04:18 | HMH.DCSUM ---
General - General Admission date:: 06/24/22 Discharge date: 06/24/22 HPI HPI: this patient presented to the ed with progressive sob and altered mental status despite compliance with home meds - pt had been seen in the ed a few days prior but has progressed since - no chest pain but has hx of chf and has hx of copd - pt was found in ed with abn cxr with sirs and possible aspiration pneumonia and elevated bnp - pt was admitted for eval and treatment as failed op care Hospital Course Hospital Course: pt was on floor and demanded to leave ama - Objective Vital signs: Temp Pulse Resp BP Pulse Ox 98.1 F 103 H 22 135/79 92 L 06/24/22 12:00 06/24/22 13:20 06/24/22 12:00 06/24/22 12:00 06/24/22 12:00 no acute distress - *Routine HEENT Exam Head: Present: normocephalic Eye: Present: EOMI, PERRL ENT: Present: mucous membranes dry - *Routine Neck Exam Absent: JVD - *Routine Respiratory Exam Present: decreased breath sounds - *Routine Cardiovascular Exam Present: RRR - *Routine Abdominal Exam Present: soft - *Routine Extremities Exam Present: edema - *Routine Skin Exam Present: intact - *Routine Neurological Exam Present: alert, CN II-XII intact - Routine Psychiatric Exam Present: anxious Results Labs on day of discharge: Labs from last 24 hours 06/24/22 06/24/22 06/24/22 09:30 07:05 05:50 Troponin I < 0.01 < 0.01 Urine Opiates Screen Urine Methadone Screen Ur Barbituates Screen Ur Phencyclidine Scrn Ur Amphetamines Screen U Benzodiazepines Scrn Urine Cocaine Screen U Marijuana (THC) Screen SARS-CoV-2 (PCR) Not detected Influenza A Untype (PCR) Not detected Influenza Type B (PCR) Not detected 06/24/22 03:40 Troponin I Urine Opiates Screen Negative Urine Methadone Screen Negative Ur Barbituates Screen Negative Ur Phencyclidine Scrn Negative Ur Amphetamines Screen Negative U Benzodiazepines Scrn Negative Urine Cocaine Screen Negative U Marijuana (THC) Screen Negative SARS-CoV-2 (PCR) Influenza A Untype (PCR) Influenza Type B (PCR) DS: Diagnosis - Discharge Diagnosis (1) LVH (left ventricular hypertrophy) Status: Acute (2) Elevated erythrocyte sedimentation rate Status: Acute (3) Diastolic dysfunction Status: Acute (4) Congestive heart failure Status: Acute (5) SIRS (systemic inflammatory response syndrome) Status: Acute (6) Severe aortic regurgitation Status: Acute (7) Tobacco use Status: Acute (8) COPD with acute exacerbation Status: Acute (9) Anemia Status: Acute (10) Pneumonia Status: Acute Discharge Plan - Patient Discharge Instructions ACTIVITY: Continue current activity DIET: continue same diet Patient Instructions: Chronic Obstructive Pulmonary Disease - Follow up Plan Disposition: Left Against Medical Advice Condition at discharge:: Stable Home Medications: Home Medications Medication Instructions Recorded Confirmed Type buprenorphine 8 mg-naloxone 2 mg 2 tab SL DAILY tab 03/22/21 06/24/22 History sublingual tablet Docusate Sodium 100 mg PO DAILYP PRN 03/04/22 06/24/22 History Aspirin [Low Dose Aspirin EC] 81 mg PO DAILY 04/30/22 06/24/22 History Calcium Carbonate/Vitamin D3 1 tab PO DAILY 04/30/22 06/24/22 History [Super Calcium 600-Vit D3 400] Clopidogrel Bisulfate [Plavix] 75 mg PO DAILY 04/30/22 06/24/22 History Omeprazole 40 mg PO DAILY 04/30/22 06/24/22 History bisoproloL fumarate [Bisoprolol 5 mg PO HS 04/30/22 06/24/22 History Fumarate] estradioL [Estradiol] 1 mg PO DAILY 04/30/22 06/24/22 History Nicotine [Nicoderm 21mg/24hr 21 mg TD DAILYP PRN #30 patch 05/11/22 06/24/22 Rx patch] clonazepam 0.5 mg tablet 0.5 mg PO QIDP PRN #120 tab 06/11/22 06/24/22 Rx gabapentin 800 mg tablet 800 mg PO QID #120 tab 06/11/22 06/24/22 Rx Albuterol Sulfate [Albuterol 3 ml IH TIDP PRN 06/24/22 06/24/22 Hi
== END 2022-06-24 16:00 | disposition left against medical advice (07) ==
LOC: ER 03:25 → 2ND 06:26
PROVIDERS: Admitting Provider Emergency Medicine; Emergency Provider Emergency Medicine; PCP Emergency Medicine; Visit Provider Emergency Medicine
DX: J44.1 Chronic obstructive pulmonary disease with (acute) exacerbation (principal); I51.7 Cardiomegaly; I35.1 Nonrheumatic aortic (valve) insufficiency; I50.33 Acute on chronic diastolic (congestive) heart failure; Z86.16 Personal history of COVID-19; F17.210 Nicotine dependence, cigarettes, uncomplicated; I65.23 Occlusion and stenosis of bilateral carotid arteries; I11.0 Hypertensive heart disease with heart failure; Z79.899 Other long term (current) drug therapy; Z88.8 Allergy status to other drugs, medicaments and biological substances; Z20.822 Contact with and (suspected) exposure to COVID-19
CPT/HCPCS: 36415; 51702; 71045; 80053; 80305; 81001; 82803; 83605; 83880; 84145; 84484; 85007; 85025; 85651; 86140; 87040; 94640; 99285; C9803; G0378; J0574; J1956; U0003; U0005

== ENCOUNTER 2022-06-24 18:11 | Emergency (ER) | payer OTHER, SELFPAY ==
[2022-06-24 18:12] VITALS: BP 153/77; PULSE 106; RESP 18; TEMP 37.1; O2SAT 94; BMI 31.2
--- NOTE | 2022-06-24 18:21 | PC.NURSE ---
charge nurse called and stated to advice pt that if she was to stay she would get no narcotics, only her suboxene per dr garay earlier orders
--- NOTE | 2022-06-24 18:27 | XR_ITS ---
PROCEDURE INFORMATION: Exam: XR Chest Exam date and time: 06/24/2022 6:42 PM Age: 56 years old Clinical indication: Shortness of breath; Additional info: Short of breath TECHNIQUE: Imaging protocol: Radiologic exam of the chest. Views: 1 view. COMPARISON: CR XR CHEST PORTABLE 06/24/2022 3:38 AM FINDINGS: Lungs: Unchanged bibasilar opacities, right more pronounced than left. Stigmata of old granulomatous disease. Pleural spaces: Unremarkable. No pleural effusion. No pneumothorax. Heart/Mediastinum: Unremarkable. No cardiomegaly. Bones/joints: Unremarkable. IMPRESSION: Unchanged bibasilar opacities, right more pronounced than left.
--- NOTE | 2022-06-24 18:35 | HMH.EDGENADL ---
ED Disposition Clinical Impression: COPD (chronic obstructive pulmonary disease) Qualifiers: COPD type: COPD with acute exacerbation Qualified Code(s): J44.1 - Chronic obstructive pulmonary disease with (acute) exacerbation Disposition: Still a Patient Condition on Discharge: Fair Referrals: Chuck Pineda MD [Primary Care Provider] - Time of Disposition: 18:52 - Critical Care Critical Care Time: No Attestation: On 06/24/22, the high probability of a clinically significant, sudden or life threatening deterioration of the following system(s) required my full and direct attention, intervention and personal management. The time I documented below is in addition to time spent performing reported procedures but includes the following listed in this critical care notation. Medical Decision Making - Medical Records Medical records reviewed: Yes: I reviewed the patient's medical records. - Berry Inquiry Pt receiving controlled substance: No Vital Signs: 06/24/22 18:12 Temperature 98.7 F Temperature Source Oral Pulse Rate [Left Radial] 106 H Respiratory Rate 18 Blood Pressure [Right Arm] 153/77 H Blood Pressure Mean [Right Arm] 102 Blood Pressure Source [Right Arm] Automatic Cuff Blood Pressure Position [Right Arm] Sitting 02 Sat by Pulse Oximetry 94 L Oxygen Delivery Method Nasal Cannula Oxygen Flow Rate (LPM) 4 Orders (Tests/Meds): ORDERS Category Date Time Status XR chest portable Stat Exams 06/24/22 18:27 Taken BMP [Basic Metabolic Panel] Stat Lab 06/24/22 18:28 Ordered Complete Blood Count Auto Diff Stat Lab 06/24/22 18:28 Ordered Venous Blood Gas Stat RT 06/24/22 18:28 Ordered EKG Request [ECG Request by /Nse] Stat Y 06/24/22 18:27 Ordered Medical Decision Narrative: In summary this is a 56-year-old female with history of COPD, recently admitted for exacerbation, presenting to the emergency department shortness of breath. Patient clinically stable on arrival. She is tachycardic. Requiring supplemental oxygen. Will obtain CBC, CMP, VBG, chest x-ray, EKG Reviewed her medical record and most recent hospital discharge. She was on Levaquin and methylprednisolone. Given dose of Levaquin and steroids in the ER. Her laboratory results are generally reassuring. Unchanged from discharge. Patient was admitted to Dr. Pineda. He is now starting his shift in the emergency department. We discussed her case. He will see her in consultation and determine disposition. General Adult HPI - General Chief complaint: Shortness of Breath/Dyspnea Stated complaint: soa Time Seen by Provider: 06/24/22 18:25 Mode of Arrival: EMS Limitations: No Limitations Description of Symptoms (Recalled from ER Triage Doc. by RN): c/o soa starting a few days, was admitted today and left ama and went home and return for conitnued soa - History of Present Illness HPI narrative: 56-year-old female presenting to the emergency department shortness of breath. She says she feels winded, tired, fatigued. Has a dry cough. Cough is worse when moving. Relieved by rest. She is using her inhaler nebulizer as prescribed. Uses oxygen. No chest pain. No abdominal pain. No nausea or vomiting. She was hospitalized until this morning, for treatment of a COPD exacerbation. Chart review shows that she was on Levaquin and steroids. She had to leave, said she was not being given her pain medication. Basom unwell when she got home. Called 911. Her primary care doctor is Dr. Pineda. - Related Data Home Medications Medication Instructions Recorded Confirmed buprenorphine 8 mg-naloxone 2 mg 2 tab SL DAILY tab 03/22/21 06/24/22 sublingual tablet Docusate Sodium 100 mg PO DAILYP PRN 03/04/22 06/24/22 Aspirin [Low Dose Aspirin EC] 81 mg PO DAILY 04/30/22 06/24/22 Calcium Carbonate/Vitamin D3 1 tab PO DAILY 04/30/22 06/24/22 [Super Calcium 600-Vit D3 400] Clopidogrel Bisulfate [Plavix] 75 mg PO DAILY 04/30/2206/02
--- NOTE | 2022-06-24 18:50 | INFXCTL.NOTE ---
spoke with will in RT about vbg collection
--- NOTE | 2022-06-24 18:51 | PC.NURSE ---
spoke with will in [place] and notified of vbg order
--- NOTE | 2022-06-24 18:52 | PC.NURSE ---
WENT IN TO START IV , PT HAD BEEN TO BATHRROM A COUPLE TIMES AND SAYS SINCE THEY TOOK OUT HER TERRAZAS AROUND 2PM AND SHE LEFT AMA SHE HAS NOT BEEN ABLE TO URINATE , TERRAZAS PLACED WITH 250CC OUT
[2022-06-24 18:56] LABS: VBG Base Excess -3.3 mmol/L (-2.4-2.3); VBG Oxygen Saturation 93.5 % (50-70); VBG PCO2 39.3 mmol/L (35-51); VBG PH 7.37 mmol/L (7.31-7.41); VBG PO2 75.7 mmol/L (28-40); VBG Total CO2 23.2 mmol/L (23-27)
[2022-06-24 18:57] LABS: Basophils % 0.1 % (0.1-2.0); Eosinophils # 0.2 K/mm3 (0.0-0.4); Eosinophils % 1.8 % (0.1-12.0); Hematocrit 29.6 % (37.0-47.0); Hemoglobin 9.5 g/dL (12.2-16.2); Lymphocytes # 0.8 K/mm3 (0.7-4.5); Lymphocytes % 6.4 % (10-50); Mean Corpuscular HGB Conc 31.9 g/dL (31.8-35.4); Mean Corpuscular Hemoglobin 26.2 pg (27.0-31.2); Mean Corpuscular Volume 82.1 fl (81-99); Mean Platelet Volume 7.3 fl (7.4-10.4); Monocytes # 0.2 K/mm3 (0.1-1.0); Monocytes % 1.6 % (1.7-9.3); Neutrophils # 10.6 K/mm3 (1.8-7.8); Neutrophils % 90.1 % (37.0-80.0); Platelet Count 426 K/mm3 (142-424); Red Blood Count 3.61 M/mm3 (4.20-5.40); Red Cell Distribution Width 17.9 % (11.5-17.5); White Blood Count 11.8 K/mm3 (4.8-10.8)
[2022-06-24 18:59] LABS: MANUAL DIFFERENTIAL MANUAL DIFFERENTIAL (MANUAL DIFF)
[2022-06-24 19:06] LABS: Anion Gap 11.7 mEq/L (5-15); Blood Urea Nitrogen 22 mg/dl (7-17); Calcium 8.7 mg/dl (8.4-10.2); Carbon Dioxide 26 mmol/L (22.0-30.0); Chloride 108 mmol/L (98-107); Creatinine Clearance Estimated 56 mL/min (50-200); Estimated Glomerular Filt Rate 39 ml/min (>60); GFR (African American) 47 ML/MIN (>60); Glucose 130 mg/dl (74-100); Potassium 3.7 mmoL/L (3.5-5.1); Sodium 142 mmol/L (136-145)
[2022-06-24 19:10] LABS: Anisocytosis 2+; Hypochromasia 1+; Lymphocytes % 6 % (10-50); Neutrophils % 88 % (42-76); Platelet Estimate Slight Increase; Poikilocytosis 1+; Total Cells Counted 100
[2022-06-24 20:11] VITALS: BP 0/0; PULSE 0; RESP 0; TEMP -17.7; TEMP 0; O2SAT 0
== END 2022-06-24 20:16 | disposition left against medical advice (07) ==
PROVIDERS: Emergency Provider Emergency Medicine; PCP Emergency Medicine
DX: J44.1 Chronic obstructive pulmonary disease with (acute) exacerbation (principal); Z53.29 Procedure and treatment not carried out because of patient's decision for other reasons; Z79.82 Long term (current) use of aspirin; Z79.899 Other long term (current) drug therapy; Z79.890 Hormone replacement therapy; Z79.51 Long term (current) use of inhaled steroids; Z88.6 Allergy status to analgesic agent; Z88.8 Allergy status to other drugs, medicaments and biological substances; I25.10 Atherosclerotic heart disease of native coronary artery without angina pectoris; E78.5 Hyperlipidemia, unspecified; I11.0 Hypertensive heart disease with heart failure; I73.9 Peripheral vascular disease, unspecified; I50.9 Heart failure, unspecified; F41.9 Anxiety disorder, unspecified; K21.9 Gastro-esophageal reflux disease without esophagitis; K75.9 Inflammatory liver disease, unspecified
CPT/HCPCS: 94644; 94645; 51702; 71045; 80048; 82803; 85007; 85025; 93005; 99284

== ENCOUNTER 2022-06-24 21:52 | Observation (INO) | payer OTHER, SELFPAY ==
--- NOTE | 2022-06-24 18:27 | ECG_ITS ---
APPROVED REPORT Exam: Resting ECG HR:102 bpm ECG Measurements Heart Rate 102 AXES MI 142 P 78 QRSd 90 QRS 63 QT 354 T 63 QTc 413 Conclusion SINUS TACHYCARDIA Bi-atrial abnormality O/w nl ecg Electronically signed by : Evaristo Gonzalez MD 06/26/2022 21:12:51
[2022-06-24 21:33] VITALS: BP 154/88; PULSE 110; RESP 20; TEMP 36.8; O2SAT 95; BMI 18.8
--- NOTE | 2022-06-24 21:52 | XR_ITS ---
PROCEDURE INFORMATION: Exam: XR Chest Exam date and time: 06/24/2022 10:07 PM Age: 56 years old Clinical indication: Shortness of breath TECHNIQUE: Imaging protocol: Radiologic exam of the chest. Views: 1 view. COMPARISON: CR XR CHEST PORTABLE 06/24/2022 6:42 PM FINDINGS: Lungs: Mild bilateral apical scarring. Stigmata of old granulomatous disease. Bibasilar opacities appear unchanged to slightly improved. Pleural spaces: Unremarkable. No pleural effusion. No pneumothorax. Heart/Mediastinum: Unremarkable. No cardiomegaly. Bones/joints: Unremarkable. IMPRESSION: Bibasilar opacities appear unchanged to slightly improved.
[2022-06-24 22:04] LABS: Basophils % 0.1 % (0.1-2.0); Eosinophils % 0.1 % (0.1-12.0); Hemoglobin 8.9 g/dL (12.2-16.2); Lymphocytes # 0.8 K/mm3 (0.7-4.5); Lymphocytes % 7.5 % (10-50); Mean Corpuscular Hemoglobin 26.6 pg (27.0-31.2); Mean Corpuscular Volume 83.4 fl (81-99); Mean Platelet Volume 7.3 fl (7.4-10.4); Monocytes # 0.4 K/mm3 (0.1-1.0); Monocytes % 3.9 % (1.7-9.3); Neutrophils # 9.4 K/mm3 (1.8-7.8); Neutrophils % 88.6 % (37.0-80.0); Platelet Count 416 K/mm3 (142-424); Red Blood Count 3.33 M/mm3 (4.20-5.40); Red Cell Distribution Width 17.7 % (11.5-17.5); White Blood Count 10.6 K/mm3 (4.8-10.8)
[2022-06-24 22:05] LABS: Hematocrit 27.8 % (37.0-47.0)
[2022-06-24 22:09] LABS: Chloride 110 mmol/L (98-107); Sodium 143 mmol/L (136-145)
[2022-06-24 22:10] LABS: Potassium 3.6 mmoL/L (3.5-5.1)
[2022-06-24 22:12] LABS: Alanine Aminotransferase 15 U/L (12-78); Albumin Level 3.8 g/dl (3.5-5.0); Albumin/Globulin Ratio 1.2 (1.1-1.8); Alkaline Phosphatase 75 U/L (38-126); Anion Gap 11.6 mEq/L (5-15); Aspartate Amino Transferase 28 U/L (14-36); Blood Urea Nitrogen 24 mg/dl (7-17); Carbon Dioxide 25 mmol/L (22.0-30.0); Creatinine Clearance Estimated 36 mL/min (50-200); Estimated Glomerular Filt Rate 43 ml/min (>60); GFR (African American) 51 ML/MIN (>60); Globulin 3.3 g/dL (1.3-3.2); Total Protein,Serum 7.1 g/dl (6.3-8.2)
[2022-06-24 22:13] LABS: Calcium 8.8 mg/dl (8.4-10.2); Glucose 140 mg/dl (74-100)
[2022-06-24 22:14] LABS: Bilirubin,Total < 0.1 mg/dl (0.2-1.3)
[2022-06-24 22:18] LABS: C-Reactive Protein 24.2 mg/L (0-4)
--- NOTE | 2022-06-24 22:20 | PC.NURSE ---
Alert, oriented, skin warm and dry, resp slightly labored, 02 at 2 liters per nasal canula. Expiratory wheezes present. Call kim in reach. Rings frequently with multiple request. Requesting to speak to Dr. Pineda. Will continue to monitor.
[2022-06-24 22:23] VITALS: PULSE 102
[2022-06-24 22:24] VITALS: PULSE 103
[2022-06-24 22:27] LABS: Erythrocyte Sedimentation Rate 132 mm/hr (0-30)
[2022-06-24 22:32] LABS: Lactic Acid 1.2 mmol/L (0.7-2.1)
[2022-06-24 23:24] VITALS: BP 158/82; PULSE 108; O2SAT 98
[2022-06-25] VITALS (19 sets, daily range): BP systolic 120–159; BP diastolic 71–93; PULSE 62–102; RESP 20–28; TEMP 36.4–36.9; O2SAT 91–97; BMI 22.5
--- NOTE | 2022-06-25 00:14 | PC.NURSE ---
Alert, oriented, skin warm and dry. 02 sat 92-96 % on 2 liters. Warm blankets applied.
--- NOTE | 2022-06-25 01:58 | PC.NURSE ---
Patient resting quietly, no complaints voiced.
--- NOTE | 2022-06-25 02:46 | PC.NURSE ---
Patient is resting in bed. Has not verbalized any complaints to nursing staff this hour.
--- NOTE | 2022-06-25 02:49 | ECG_ITS ---
APPROVED REPORT Exam: Resting ECG HR:74 bpm ECG Measurements Heart Rate 74 AXES NV 144 P 63 QRSd 92 QRS 51 QT 413 T 61 QTc 440 Conclusion SINUS RHYTHM WITH SINUS ARRHYTHMIA NORMAL ECG UNCONFIRMED REPORT Electronically signed by : Evaristo Gonzalez MD 06/26/2022 21:10:33
--- NOTE | 2022-06-25 04:02 | HMH.EDSOB ---
ED Disposition Clinical Impression: Acute exacerbation of chronic obstructive airways disease, Severe aortic regurgitation, Anxiety CAD (coronary artery disease) Qualifiers: Coronary Disease-Associated Artery/Lesion type: [place] artery [place] vs. transplanted heart: [place] heart Associated angina: unspecified whether angina present Qualified Code(s): I25.10 - Atherosclerotic heart disease of [place] coronary artery without angina pectoris Disposition: Admitted as Observation Condition on Discharge: Fair - Critical Care Critical Care Time: No Attestation: On 06/24/22, the high probability of a clinically significant, sudden or life threatening deterioration of the following system(s) required my full and direct attention, intervention and personal management. The time I documented below is in addition to time spent performing reported procedures but includes the following listed in this critical care notation. Medical Decision Making - Medical Records Medical records reviewed: Yes: I reviewed the patient's medical records. - Berry Inquiry Pt receiving controlled substance: No Vital Signs: 06/24/22 21:33 06/24/22 22:23 06/24/22 22:24 Temperature 98.3 F Temperature Source Oral Pulse Rate 102 H 103 H Pulse Rate [Right Brachial] 110 H Respiratory Rate 20 Blood Pressure Blood Pressure [Right Arm] 154/88 H Blood Pressure Mean Blood Pressure Mean [Right Arm] 110 Blood Pressure Source [Right Arm] Automatic Cuff Blood Pressure Position [Right Arm] Sitting 02 Sat by Pulse Oximetry 95 Oxygen Delivery Method Nasal Cannula Oxygen Flow Rate (LPM) 2 06/24/22 23:24 06/25/22 03:00 06/25/22 03:30 Temperature Temperature Source Pulse Rate 108 H 74 65 Pulse Rate [Right Brachial] Respiratory Rate Blood Pressure 158/82 H 137/83 139/72 Blood Pressure [Right Arm] Blood Pressure Mean Blood Pressure Mean [Right Arm] Blood Pressure Source [Right Arm] Blood Pressure Position [Right Arm] 02 Sat by Pulse Oximetry 98 96 96 Oxygen Delivery Method Nasal Cannula Nasal Cannula Oxygen Flow Rate (LPM) 5 5 06/25/22 04:00 06/25/22 04:30 06/25/22 05:00 Temperature Temperature Source Pulse Rate 66 63 66 Pulse Rate [Right Brachial] Respiratory Rate Blood Pressure 138/80 139/77 143/75 H Blood Pressure [Right Arm] Blood Pressure Mean Blood Pressure Mean [Right Arm] Blood Pressure Source [Right Arm] Blood Pressure Position [Right Arm] 02 Sat by Pulse Oximetry 95 95 96 Oxygen Delivery Method Room Air Oxygen Flow Rate (LPM) 06/25/22 05:30 06/25/22 06:00 06/25/22 06:30 Temperature Temperature Source Pulse Rate 63 62 64 Pulse Rate [Right Brachial] Respiratory Rate Blood Pressure 131/71 140/77 132/76 Blood Pressure [Right Arm] Blood Pressure Mean 98 94 Blood Pressure Mean [Right Arm] Blood Pressure Source [Right Arm] Blood Pressure Position [Right Arm] 02 Sat by Pulse Oximetry 95 95 95 Oxygen Delivery Method Nasal Cannula Nasal Cannula Nasal Cannula Oxygen Flow Rate (LPM) 5 5 5 06/25/22 07:00 06/25/22 09:00 06/25/22 09:31 Temperature Temperature Source Pulse Rate 63 89 66 Pulse Rate [Right Brachial] Respiratory Rate 20 Blood Pressure 140/73 128/81 120/87 Blood Pressure [Right Arm] Blood Pressure Mean 95 96 98 Blood Pressure Mean [Right Arm] Blood Pressure Source [Right Arm] Blood Pressure Position [Right Arm] 02 Sat by Pulse Oximetry 95 97 91 L Oxygen Delivery Method Nasal Cannula Nasal Cannula Oxygen Flow Rate (LPM) 5 3 06/25/22 10:00 06/25/22 10:30 Temperature Temperature Source Pulse Rate 64 90 Pulse Rate [Right Brachial] Respiratory Rate Blood Pressure 132/84 123/93 H Blood Pressure [Right Arm] Blood Pressure Mean 100 103 Blood Pressure Mean [Right Arm] Blood Pressure Source [Right Arm] Blood Pressure Position [Right Arm] 02 Sat by Pulse Oximetry 92
--- NOTE | 2022-06-25 07:47 | PC.NURSE ---
karmenrn at at this time checking on pt.
--- NOTE | 2022-06-25 08:02 | PC.NURSE ---
PT ASSISTED TO BSC AND RETURNED TO BED. CALL LIGHT WITHIN REACH
--- NOTE | 2022-06-25 08:35 | PC.NURSE ---
PT PROVIDED DRINK AND WARM BLANKET, NO FURTHER NEEDS. CALL LIGHT WITHIN REACH
--- NOTE | 2022-06-25 08:39 | PC.NURSE ---
ER MD Pineda at
--- NOTE | 2022-06-25 08:42 | PC.NURSE ---
DR. PINO AT BEDSIDE TO REEVALUATE PT
--- NOTE | 2022-06-25 09:03 | PC.NURSE ---
pt neb treatment completed at this time, pt on 3L per NC at this time. Will continue to monitor
--- NOTE | 2022-06-25 09:59 | PC.NURSE ---
PT RESTING WITH EYES CLOSED. CALL LIGHT WITHIN REACH
--- NOTE | 2022-06-25 10:11 | PC.NURSE ---
Dr. Solitario called to check on pt, gave updated VS of SaO2 90% on 3L at this time, pt still somewhat drowsy. Dr Solitario requested that I ask pt would she agree to be admitted and to stay and not sign out AMA. Asked pt if she would agree to admission and agree to stay in the hospital. Pt states yes, as long as I can get my medicines, I have to have my suboxone . Verified pt medication list with pt, updated list in computer system. contacted Dr. Solitario stated pt states she will agree to stay if she can get her suboxone, Dr. solitario states there is a protocol with pharmacy for that medication and it is up to them. States to remind pt she can not take any of her medications out of her purse. Gave verbal order for admission Miriam Solitario, COPD exacerbation, obs admission. Asked if he would like for me to start any antibiotics on pt at this time, states he will place all the orders on pt
--- NOTE | 2022-06-25 10:18 | PC.NURSE ---
care management notified of admission, spoke with luis
--- NOTE | 2022-06-25 10:24 | PC.NURSE ---
COVID SWAB COLLECTED AT THIS TIME, PT TOLERATED WELL. NO NEEDS
[2022-06-25 10:26] LABS: Coronavirus 19, PCR Not Detected (NotDetected); Influenza A, PCR Not Detected (NotDetected); Influenza B, PCR Not Detected (NotDetected)
--- NOTE | 2022-06-25 10:54 | PC.NURSE ---
rounded on patient, patient needed to go to the bathroom, assisted patient to the bathroom, assisted back to the bed after she finished, and was given a fresh warm blanket
--- NOTE | 2022-06-25 11:13 | PC.NURSE ---
receiving nurse went off the floor to get lunch\, Rocío will have nurse call back when she arrives back to the floor
--- NOTE | 2022-06-25 11:27 | PC.NURSE ---
report given to virginia sumner on second floor. Awaiting admission orders on pt.
--- NOTE | 2022-06-25 11:29 | PC.NURSE ---
contacted dr. solitario about admission orders for pt, states the will place them [place].
--- NOTE | 2022-06-25 11:34 | PC.NURSE ---
pt updated about going upstairs, called for a lunch tray
--- NOTE | 2022-06-25 12:03 | PC.NURSE ---
rounded on room,patients lunch tray was delivered, helped the patient get started eating, patient stated didnt need anything else at this time
--- NOTE | 2022-06-25 12:05 | PC.NURSE ---
notified virginia sumner on second floor that pt admission orders are in in system.
--- NOTE | 2022-06-25 12:20 | PC.NURSE ---
pt being transported to second floor via wheelchair per ER staff
--- NOTE | 2022-06-25 12:23 | CA_ITS ---
APPROVED REPORT EXAM: Comprehensive 2D, Doppler, and color-flow Echocardiogram Cabinetmaker Apprentice: Love Jarquin CRT Ht: 5 ft 2 in Wt: 102lbs BSA: 1.44 BP: 135/79 mmHg Indications: Congestive Heart Failure, COPD, Shortness of Breath, CAD, Hyperlipidemia, Hypertension/HDD,stent,,hepatitis, severe AI, smoker 2D Dimensions LVOT 1.42 cm (M/F) 1.5-2.5 M-Mode Dimensions RVDd 1.63 cm (0.9-2.6) LA Diam 3.09 cm (1.9-4.0) LVDd 4.04 cm (3.5-5.7) Ao Diam 3.17 cm (2.0-3.7) LVDs 2.44 cm (3.5-5.7) IVSd 1.34 cm (0.6-1.1) PWd 0.76 cm (0.6-1.1) EF (Teich) 70.70% FS 39.60% EDV (Teich) 71.70 mL ESV (Teich) 21.00 mL LV Diastology E Decel Time 257.00 (160-240 msec) E/A Ratio 1.02 Aortic Valve LVOT Max 147.00 (70-110 cm/s) LVOT VTI 30.69 cm AoV Peak Miko. 177.00 (50-130 cm/s) AI PHT 335.00 ms AO Peak GR. 12.50 mmHg AO Mean GR. 6.40 (<5 mmHg) AO VTI 28.75 (18-25 cm) JALEEL (VTI) 1.69 (2.5-4.5 cm2) Mitral Valve MV E Max Miko. 99.00 (40-130 cm/s) MV A Velocity 98.00 (40-130 cm/s) E/A Ratio 1.02 MV Decel. Time 257.00 (160-240 ms) MV PHT 75.00 ms Tricuspid Valve TR P. Velocity 121.00 cm/s RAP Estimate 10.00 mmHg RVSP 15.90 mmHg Left Ventricle Technically difficult and poor study, endocardial surfaces and valvular structures not well visualized. Normal left ventricular size preserved left ventricular systolic function, estimated ejection fraction 55% with no obvious regional wall motion abnormality. Diastolic parameters are inconclusive. Right Ventricle Right atrium and right ventricle mildly enlarged with normal contractility. Aortic Valve Aortic valve is not well visualized is thickened and calcified, there is aortic insufficiency present which is difficult to quantify from the study. Mitral Valve Mitral valve is minimally thickened, there is mild mitral regurgitation. Tricuspid Valve Tricuspid valve is minimally thickened, there is mild tricuspid regurgitation, tricuspid regurgitation jet velocity is inadequate for calculation of the right ventricular systolic pressure. Pulmonic Valve Pulmonic valve is poorly visualized. Great Vessels Aortic root is normal size. Inferior vena cava is poorly visualized. Pericardium No significant pericardial effusion noted. Conclusion 1. Technically difficult and very poor study, valvular structures are poorly visualized. Probably preserved left ventricular systolic function, estimated ejection fraction 55% with no obvious regional wall motion abnormality, diastolic parameters are inconclusive. 2. Aortic insufficiency present which is difficult to quantify from the study. 3. Mild mitral and tricuspid regurgitation. 4. No significant pericardial effusion noted. 5. Inferior vena cava is poorly visualized. Electronically signed by : Vipin Chaparro MD 06/25/2022 20:18:10
--- NOTE | 2022-06-25 12:38 | HMH.PULMCON ---
*Admission Date: 06/25/22 *Reason for consult:: Acute on chronic hypoxic respiratory failure *History of present illness: Ms. Rush is a 56-year-old female history of COPD, E. coli and Klebsiella pneumonia, COVID-19 pneumonia, most recent exacerbation from May 2022 presented to ER with worsening respiratory distress, failed outpatient management and pulmonary was called for further evaluation [facility] History 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: Reports:: Anxiety, Carotid Stenosis, Congestive Heart Failure, Chronic Obstructive Pulmonary Disease (COPD), Coronary Artery Disease, Depression, Gastroesophageal Reflux Disease(GERD), Heart Murmur, Hepatitis, Hiatal Hernia, Hyperlipidemia, Hypertension, Lung Disease, Peripheral Artery Disease, Valvular Heart Disease Denies:: Cancer, Diabetes Mellitus Type 1, Diabetes Mellitus Type 2, Internal Pacemaker, MRSA, Seizures *Have you ever received a pneumonia vaccine?: Yes *Have you received a flu vaccine this season?: Yes Other 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: Reports: Arthritis, Other. Denies: Blood Transfusion Reaction Laterality Cases: Left: Arthroscopy Knee, Lumpectomy, Bilateral: Breast Biopsy, Carpal Tunnel Release Other Surgeries: Yes: Cancer Surgery, Cardiac Catheterization, Cholecystectomy, Colonoscopy, Coronary Stent, , Hernia Repair, Hysterectomy-Total, Hysterectomy-Partial, Ureter Stent, Other. No: Pacemaker Amputation: No Fractures: No - *Social History Last grade of school completed: Some college Smoking Status: Current every day smoker Tobacco Type: cigarettes # Packs/Day (cigarettes): 1 #Yrs smoked (if former smoker): 45 Alcohol Intake: never Alcohol Intake Frequency:: holidays/special occasions only Substance Use Type: painkillers *Occupational Status:: unemployed Housing: house Household Members: family *Travel in the last 8 weeks: None - Psychiatric History Expresses thoughts of harming self/others: None Pschychiatric History:: Reports:: Anxiety, Depression Family Hx:: Cancer, Coronary Artery Disease, Heart Attack, Hyperlipidemia, Hypertension ROS - Cons Reports body ache(s), Reports chills, Reports fatigue, Reports fever(s), Reports weakness - Eyes Reports blurry vision - ENT Denies difficulty swallowing - Card Reports shortness of breath, Reports shortness of breath with activity, Reports leg swelling - Resp Respiratory: Reports chest congestion, Reports cough, Reports excessive phlegm production, Denies coughing up blood, Reports cough with sputum production, Denies pain with breathing - GI Gastrointestingal: Denies: abdominal pain - [place] Musculoskeletal: Reports back pain - Psych Denies thoughts of hurting/killing others, Denies thoughts of hurting/killing yourself Meds Home Medications Medication Instructions Recorded Confirmed Type buprenorphine 8 mg-naloxone 2 mg 2 tab SL DAILY tab 03/22/21 06/25/22 History sublingual tablet Docusate Sodium 100 mg PO DAILYP PRN 03/04/22 06/25/22 History Aspirin [Low Dose Aspirin EC] 81 mg PO DAILY 04/30/22 06/25/22 History Calcium Carbonate/Vitamin D3 1 tab PO DAILY 04/30/22 06/25/22 History [Super Calcium 600-Vit D3 400] Clopidogrel Bisulfate [Plavix] 75 mg PO DAILY 04/30/22 06/25/22 History Omeprazole 40 mg PO DAILY 04/30/22 06/25/22 History bisoproloL fumarate [Bisoprolol 5 mg PO HS 04/30/22 06/25/22 History Fumarate] estradioL [Estradiol] 1 mg PO DAILY 04/30/22 06/25/22 History Nicotine [Nicoderm 21mg/24hr 21 mg TD DAILYP PRN #30 patch 05/11/22 06/25/22 Rx patch] clonazepam 0.5 mg tablet 0.5 mg PO QIDP PRN #120 tab 06/11/22 06/25/22 Rx gabapentin 800 mg tablet 800 mg PO QID #120 tab 06/11/22 06/25/22 Rx Albuterol Sulfate [Albuterol 3 ml IH QIDP PRN 06/24/22 06/25/22 History Sulfate 0.63mg/3ml Neb] Albuterol Sulfate [Albuterol 2 puff PO Q6 06/24/22 06/25/22 History Sulfate Hfa] Alendronate Sodium [Fosamax 70mg 70 mg PO WEEKLY 06/24/22 06/25/22 History Tablet] Escitalopram Oxalate 20 mg PO DAILY 06/24/2206/02
--- NOTE | 2022-06-25 13:32 | P.CONPHA_ITS ---
[facility] Pharmacy VTE Monitoring - Patient Demographics Admission date: 06/25/22 Report Date: 06/25/22 Time: 13:32 Allergies/Adverse Reactions: Patient Allergies atorvastatin Adverse Reaction (Intermediate, Verified 06/14/22 09:35) myalgia aspirin [ASPIRIN] Adverse Reaction (Unknown, Verified 06/14/22 09:35) codeine [CODEINE] Adverse Reaction (Unknown, Verified 06/14/22 09:35) propoxyphene [PROPOXYPHENE] Adverse Reaction (Unknown, Verified 06/14/22 09:35) tramadol [TRAMADOL] Adverse Reaction (Unknown, Verified 06/14/22 09:35) Height: 1.57 m Weight: 55.82 kg Patient Problems: Current Active Problems (Last Updated 02/24/19 @ 09:01 by SILVA Cat) Acute exacerbation of chronic obstructive airways disease (Acute) Severe aortic regurgitation (Acute) Anxiety (Chronic) CAD (coronary artery disease) (Chronic) - VTE Risk Labs: VTE Related Lab Results Hgb 8.9 g/dL (12.2-16.2) L 06/24/22 21:30 Hct 27.8 % (37.0-47.0) L 06/24/22 21:30 Plt Count 416 K/mm3 (142-424) 06/24/22 21:30 BUN 24 mg/dl (7-17) H 06/24/22 21:30 Creatinine 1.30 mg/dl (0.52-1.04) H 06/24/22 21:30 Estimated Creat Clear 36 mL/min (50-200) 06/24/22 21:30 Was VTE Risk Assessment Performed: Yes VTE Score: 7 VTE Risk Level: Moderate Risk Clinical Trial Participant: No - Prophylaxis VTE Prophylaxis Ordered?: Yes Types of VTE Prophylaxis: TEDS Knee High
--- NOTE | 2022-06-25 13:38 | PC.NURSE ---
patient stated that she did not bring any home medications with her
--- NOTE | 2022-06-25 13:45 | HMH.CNCARD ---
History of Present Illness Consult date: 06/25/22 Requesting physician: Chuck Pineda Consult reason: congestive heart failure, shortness of breath Chief complaint: SOA, elevated BNP Additional 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:: 1. Mild CAD A. [facility], 12/2020 shows: Mild nonflow limiting coronary disease with Hyperdynamic ventricle (EF 70%) but Normal LVEDP 2. COPD with continued tobacco use A. Chronic oxygen therapy 3. Aortic Regurgitation A. Echo, 12/21/2020, EF 55%, moderate AR with mild MR and TR. B. Echocardiogram, [place], [place], 08/2021, severe aortic regurgitation C. Echo, 03/05/2022, 1. Mild biatrial enlargement, normal left ventricular size, mild concentric left ventricular hypertrophy, estimated ejection fraction 55% with no regional wall motion abnormality, grade 1 diastolic dysfunction seen with tissue Doppler evidence of intraventricular pressure. 2. Mildly enlarged right ventricle with normal contractility. 3. Thickened and calcified aortic valve is likely severe aortic insufficiency. 4. Mild mitral and tricuspid regurgitation. 5. No significant pericardial effusion. 6. Inferior vena cava is poorly visualized. 4. History of IV drug use, clean since 2020 A. Hepatitis C, diagnosed 2021 5. Carotid stenosis A. Carotid artery ultrasound, 07/2021, MARIANNA 50-69%, LICA 20-49% B. Carotid artery ultrasound, 03/2022, less than 50% stenosis bilaterally 6. Renal artery stenosis A. Left renal artery stenting, 12/2020. 7. Hyperlipidemia 8. Psychiatric illness/psychosis with prior hallucinations that resolved on risperidone History of present illness: 56-year-old white female with frequent admissions for shortness of breath and elevated BNP was readmitted for the same symptoms. Patient has been in the ER 3 times in the last 24 to 48 hours leaving twice and returning. She states she is short of breath and coughing but cannot bring anything up. Audible wheezes noted during conversation. Pulmonology has been consulted to see the patient he feels that they have exacerbation of COPD we will treat them accordingly. Cardiology been consulted due to history of severe aortic insufficiency with elevated BNP but no evidence of CHF on chest x-ray. Echocardiogram is being performed during my evaluation. Patient has been set up for a transesophageal echocardiogram 7 different times but fails to show up for these procedures due to anxiety over possible results and reportedly inability to find a ride. Troponins this admission are normal. EKG shows sinus rhythm with no acute ST segment changes. BNP is greater than 1600 but again chest x-ray shows no acute evidence of CHF. [facility] History 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: Reports:: Anxiety, Cancer (cervical), Carotid Stenosis, Congestive Heart Failure, Chronic Obstructive Pulmonary Disease (COPD), Coronary Artery Disease, Depression, Gastroesophageal Reflux Disease(GERD), Heart Murmur, Hepatitis, Hiatal Hernia, Hyperlipidemia, Hypertension, Lung Disease, Peripheral Artery Disease, Peripheral Vascular Disease, Valvular Heart Disease Denies:: Diabetes Mellitus Type 1, Diabetes Mellitus Type 2, Internal Pacemaker, MRSA, Seizures *Have you ever received a pneumonia vaccine?: Yes *Have you received a flu vaccine this season?: Yes Other 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: Reports: Arthritis, Other. Denies: Blood Transfusion Reaction Laterality Cases: Left: Arthroscopy Knee, Lumpectomy, Bilateral: Breast Biopsy, Carpal Tunnel Release Other Surgeries: Yes: Cancer Surgery, Cardiac Catheterization, Cholecystectomy, Colonoscopy, Coronary Stent, , Hernia Repair, Hysterectomy-Total, Hysterectomy-Partial, Ureter Stent, Other. No: Pacemaker Amputation: No Fractures: No - *Social History Last grade of school completed: High school graduate Smoking Status: Current every day smoker Tobacco Type: cigarettes # Packs/Day (cigarettes): 1 #Yrs smoked (if former smoker): 45 Alcohol Intake: never Alcoh
--- NOTE | 2022-06-25 15:57 | PC.NURSE ---
since arrival to floor patient has done okay. noted to be very wheezy and short of breath. educated on need to keep o2 on. bed alarm placed on patient, and educated to ring out as needed. has been asleep. no complaints. medicated per jan.
--- NOTE | 2022-06-25 20:49 | HMH.HP ---
*Admission Date: 06/25/22 *Chief complaint: sob *History of present illness: this patient with known hx of ht dis and copd and presents with progressive sob and resp distress - pt has attempted as outpt but despite compliance with meds has had progressive sx with fatigue and dec ambulation and adl- despite ed treatment remained very symptomatic and required admit for treatment and card and pul eval- [facility] History I have reviewed the patient's past medical history: Yes 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: Reports:: Anxiety, Cancer (cervical), Carotid Stenosis, Congestive Heart Failure, Chronic Obstructive Pulmonary Disease (COPD), Coronary Artery Disease, Depression, Gastroesophageal Reflux Disease(GERD), Heart Murmur, Hepatitis, Hiatal Hernia, Hyperlipidemia, Hypertension, Lung Disease, Peripheral Artery Disease, Peripheral Vascular Disease, Valvular Heart Disease Denies:: Diabetes Mellitus Type 1, Diabetes Mellitus Type 2, Internal Pacemaker, MRSA, Seizures *Have you ever received a pneumonia vaccine?: Yes *Have you received a flu vaccine this season?: Yes Other 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: Reports: Arthritis, Other. Denies: Blood Transfusion Reaction Laterality Cases: Left: Arthroscopy Knee, Lumpectomy, Bilateral: Breast Biopsy, Carpal Tunnel Release Other Surgeries: Yes: Cancer Surgery, Cardiac Catheterization, Cholecystectomy, Colonoscopy, Coronary Stent, , Hernia Repair, Hysterectomy-Total, Hysterectomy-Partial, Ureter Stent, Other. No: Pacemaker Amputation: No Fractures: No - *Social History Last grade of school completed: Some college Smoking Status: Current every day smoker Tobacco Type: cigarettes # Packs/Day (cigarettes): 1 #Yrs smoked (if former smoker): 45 Alcohol Intake: never Alcohol Intake Frequency:: holidays/special occasions only Substance Use Type: painkillers *Occupational Status:: disabled Housing: apartment Household Members: friend(s) *Travel in the last 8 weeks: None - Psychiatric History Expresses thoughts of harming self/others: None Pschychiatric History:: Reports:: Anxiety, Depression Family Hx:: Cancer, Heart Attack, Hyperlipidemia, Hypertension Review of Systems - Review of Systems Review of systems:: pertinent systems reviewed and negative unless documented below - Constitutional Reports fatigue, Reports malaise, Reports weakness - Eyes Denies change in vision - ENT Reports dizziness, Denies facial pain, Denies sore throat - *Cardiovascular Reports chest pain with activity, Reports shortness of breath with activity, Reports lightheadedness - *Respiratory Reports cough, Reports shortness of breath, Reports shortness of breath with activity, Denies coughing up blood - *Gastrointestinal Reports nausea, Denies vomiting blood - *Genitourinary Denies blood in urine - *Musculoskeletal Denies joint pain - Integumentary/Breasts Denies rash - *Neurologic Reports weakness, Denies headache(s), Denies seizure-like activity - Psychiatric Reports difficulty concentrating Meds Home Medications Medication Instructions Recorded Confirmed Type buprenorphine 8 mg-naloxone 2 mg 2 tab SL DAILY tab 03/22/21 06/25/22 History sublingual tablet Docusate Sodium 100 mg PO DAILYP PRN 03/04/22 06/25/22 History Aspirin [Low Dose Aspirin EC] 81 mg PO DAILY 04/30/22 06/25/22 History Calcium Carbonate/Vitamin D3 1 tab PO DAILY 04/30/22 06/25/22 History [Super Calcium 600-Vit D3 400] Clopidogrel Bisulfate [Plavix] 75 mg PO DAILY 04/30/22 06/25/22 History Omeprazole 40 mg PO DAILY 04/30/22 06/25/22 History bisoproloL fumarate [Bisoprolol 5 mg PO HS 04/30/22 06/25/22 History Fumarate] estradioL [Estradiol] 1 mg PO DAILY 04/30/22 06/25/22 History Nicotine [Nicoderm 21mg/24hr 21 mg TD DAILYP PRN #30 patch 05/11/22 06/25/22 Rx patch] Albuterol Sulfate [Albuterol 3 ml IH QIDP PRN 06/24/22 06/25/22 History Sulfate 0.63mg/3ml Neb] Albuterol Sulfate [Albuterol 2 puff PO Q6 06/24/22 06/25/22 History Sulfate Hfa]
[2022-06-26] VITALS (9 sets, daily range): BP systolic 134–169; BP diastolic 65–91; PULSE 62–105; RESP 18–26; TEMP 36.4–36.8; O2SAT 91–95; BMI 24.1; BMI 24.2
--- NOTE | 2022-06-26 05:52 | PC.NURSE ---
Patient A&O x4. Patient tolerating 2l nc sats above 90%. Rhonchi and wheezing noted during lung assessment. Patient has ambulated to restroom and bedside commode with stand by assist. No complaints noted.
[2022-06-26 06:23] LABS: Basophils % 0.1 % (0.1-2.0); Eosinophils # 0.1 K/mm3 (0.0-0.4); Eosinophils % 1.4 % (0.1-12.0); Hematocrit 26.6 % (37.0-47.0); Hemoglobin 8.3 g/dL (12.2-16.2); Lymphocytes # 0.8 K/mm3 (0.7-4.5); Lymphocytes % 8.9 % (10-50); Mean Corpuscular HGB Conc 31.4 g/dL (31.8-35.4); Mean Corpuscular Hemoglobin 26.3 pg (27.0-31.2); Mean Corpuscular Volume 83.9 fl (81-99); Mean Platelet Volume 7.7 fl (7.4-10.4); Monocytes # 0.3 K/mm3 (0.1-1.0); Monocytes % 3.9 % (1.7-9.3); Neutrophils # 7.6 K/mm3 (1.8-7.8); Neutrophils % 85.7 % (37.0-80.0); Platelet Count 283 K/mm3 (142-424); Red Blood Count 3.17 M/mm3 (4.20-5.40); Red Cell Distribution Width 17.7 % (11.5-17.5); White Blood Count 8.8 K/mm3 (4.8-10.8)
[2022-06-26 06:25] LABS: MANUAL DIFFERENTIAL MANUAL DIFFERENTIAL (MANUAL DIFF)
[2022-06-26 06:54] LABS: Anion Gap 8.2 mEq/L (5-15); Blood Urea Nitrogen 25 mg/dl (7-17); Calcium 8.2 mg/dl (8.4-10.2); Carbon Dioxide 23 mmol/L (22.0-30.0); Chloride 114 mmol/L (98-107); Creatinine Clearance Estimated 54 mL/min (50-200); Estimated Glomerular Filt Rate 52 ml/min (>60); GFR (African American) 62 ML/MIN (>60); Glucose 133 mg/dl (74-100); Magnesium 2.1 mg/dl (1.6-2.3); Potassium 4.2 mmoL/L (3.5-5.1); Sodium 141 mmol/L (136-145)
[2022-06-26 07:25] LABS: Anisocytosis 1+; Hypochromasia 1+; Lymphocytes % 8 % (10-50); Monocytes % 4 % (2-9); Neutrophils % 88 % (42-76); Ovalocytes 1+; Platelet Estimate Normal; Total Cells Counted 100
--- NOTE | 2022-06-26 08:32 | HMH.PNCARD ---
Subjective Date: 06/26/22 Time: 08:32 Principal diagnosis: SOA Interval history: 56-year-old white female ambulating in room in no acute distress. Patient states her breathing is improved. Results of echocardiogram from yesterday were unable to quantitate the amount of aortic insufficiency. Discussed this with the patient and she will need to have a CARMEN for further evaluation. Exam Vital signs and Labs for Last 24 Hours: Temp Pulse Resp BP Pulse Ox 97.6 F 72 18 147/80 H 94 L 06/26/22 03:49 06/26/22 06:17 06/26/22 06:17 06/26/22 03:49 06/26/22 06:17 Laboratory Results - last 24 hr 06/25/22 10:22: SARS-CoV-2 (PCR) Not detected, Influenza A Untype (PCR) Not detected, Influenza Type B (PCR) Not detected 06/26/22 06:07: WBC 8.8, RBC 3.17 L, Hgb 8.3 L, Hct 26.6 L, MCV 83.9, MCH 26.3 L, MCHC 31.4 L, RDW 17.7 H, Plt Count 283 D, MPV 7.7, Neut % (Auto) 85.7 H, Lymph % (Auto) 8.9 L, Douglas % (Auto) 3.9, Eos % (Auto) 1.4, Baso % (Auto) 0.1, Neut # (Auto) 7.6, Lymph # (Auto) 0.8, Douglas # (Auto) 0.3, Eos # (Auto) 0.1, Baso # (Auto) 0.0, Total Counted 100, Neutrophils % (Manual) 88 H, Lymphocytes % (Manual) 8 L, Monocytes % (Manual) 4, Platelet Estimate Normal, Hypochromasia 1+, Anisocytosis 1+, Ovalocytes 1+ 06/26/22 06:07: Sodium 141, Potassium 4.2, Chloride 114 H, Carbon Dioxide 23, Anion Gap 8.2, BUN 25 H, Creatinine 1.10 H, Estimated Creat Clear 54, Estimated GFR 52 L, Est GFR ( Amer) 62 D, Glucose 133 H, Calcium 8.2 L, Magnesium 2.1 I & O for Last 24 hours: Intake & Output 06/23/22 06/24/22 06/25/22 06/26/22 11:59 11:59 11:59 11:59 Weight 102 lb 13.944 oz 131 lb 4.8 oz - Constitutional no acute distress - *Routine Respiratory Exam Present: rhonchi, wheezes - *Routine Cardiovascular Exam Present: RRR - *Routine Neurological Exam Present: alert, oriented X3 Progress Note: A&P (1) Acute exacerbation of chronic obstructive airways disease Status: Acute (2) Severe aortic regurgitation Status: Acute (3) Anxiety Status: Chronic (4) CAD (coronary artery disease) Status: Chronic (5) HUGO (acute kidney injury) Status: Acute (6) Anemia Status: Acute (7) Carotid artery disease without cerebral infarction Status: Acute (8) Diastolic dysfunction Status: Acute (9) LVH (left ventricular hypertrophy) Status: Acute (10) Tobacco use Status: Acute (11) History of intravenous drug use in remission Status: Chronic (12) Hyperlipidemia Status: Chronic (13) Severe sepsis with acute organ dysfunction Status: Acute Assessment and Plan for All Diagnoses:: 1. SOA and elevated BNP as a result of both COPD exacerbation and aortic regurgitation (at least moderate in severity). 2. Polyvascular disease (mild CAD, moderate carotid artery stenosis and prior renal artery stenting) for which she is on both ASA and plavix. 3. Hyperlipidemia, continue statin therapy. 4. Continued tobacco use, cessation strongly encouraged. 5. Elevated BNP without CXR evidence of CHF. BUN/Cr elevated. Continue low dose lasix at this time. 6. Chronic anemia, Hgb 8.3 (slightly lower than normal of closer to 10) 7. HHD with diastolic dysfunction. Continue bisoprolol and lasix. 8. Aortic regurgitation, at least moderate if not severe in severity. Unable to confirm on echocardiogram yesterday. Discussed the need for CARMEN with patient. If she remains in the hospital until Saturday then we will perform it while she is here. If she is discharged home she will let us know when she can arrange for transportation for a CARMEN. Nothing further to add at this time. Please call if needed.
--- NOTE | 2022-06-26 09:05 | HMH.ACPN2 ---
Internal Medicine - PN: Subj *Date: 06/26/22 *Time: 16:29 Interval history: 56-year-old female patient sitting up in chair at bedside, she reports she is breathing better today than yesterday. Current oxygenation 92% on 2 L per nasal. Discussed transportation issues and her lack of appearance at appointments. Exam Vital signs and Labs for Last 24 Hours: Temp Pulse Resp BP Pulse Ox 97.8 F 105 H 26 H 152/91 H 91 L 06/26/22 08:00 06/26/22 08:00 06/26/22 08:00 06/26/22 08:00 06/26/22 08:00 Laboratory Results - last 24 hr 06/25/22 10:22: SARS-CoV-2 (PCR) Not detected, Influenza A Untype (PCR) Not detected, Influenza Type B (PCR) Not detected 06/26/22 06:07: WBC 8.8, RBC 3.17 L, Hgb 8.3 L, Hct 26.6 L, MCV 83.9, MCH 26.3 L, MCHC 31.4 L, RDW 17.7 H, Plt Count 283 D, MPV 7.7, Neut % (Auto) 85.7 H, Lymph % (Auto) 8.9 L, [place] % (Auto) 3.9, Eos % (Auto) 1.4, Baso % (Auto) 0.1, Neut # (Auto) 7.6, Lymph # (Auto) 0.8, [place] # (Auto) 0.3, Eos # (Auto) 0.1, Baso # (Auto) 0.0, Total Counted 100, Neutrophils % (Manual) 88 H, Lymphocytes % (Manual) 8 L, Monocytes % (Manual) 4, Platelet Estimate Normal, Hypochromasia 1+, Anisocytosis 1+, Ovalocytes 1+ 06/26/22 06:07: Sodium 141, Potassium 4.2, Chloride 114 H, Carbon Dioxide 23, Anion Gap 8.2, BUN 25 H, Creatinine 1.10 H, Estimated Creat Clear 54, Estimated GFR 52 L, Est GFR ( Amer) 62 D, Glucose 133 H, Calcium 8.2 L, Magnesium 2.1 I & O for Last 24 hours: Intake & Output 06/23/22 06/24/22 06/25/22 06/26/22 23:59 23:59 23:59 23:59 Intake Total 240 / 240 Balance 240 / 240 Weight 102 lb 13.944 oz 123 lb 1 oz 131 lb 4.8 oz - Constitutional no acute distress - *Routine HEENT Exam Head: Present: normocephalic Eye: Present: EOMI ENT: Present: mucous membranes moist - *Routine Neck Exam Present: trachea midline. Absent: tracheal deviation - *Routine Respiratory Exam Present: rhonchi, wheezes. Absent: accessory muscle use - *Routine Cardiovascular Exam Present: RRR - *Routine Abdominal Exam Present: soft, normoactive bowel sounds. Absent: tenderness, firm - *Routine Extremities Exam Present: full ROM, pulses intact. Absent: cyanosis, clubbing, edema - *Routine Skin Exam Present: intact, dry. Absent: cyanosis, erythema, jaundice - *Routine Neurological Exam Present: alert, oriented X3. Absent: motor deficit - Routine Psychiatric Exam Present: normal affect, normal thought process Assessment and Plan (1) Acute exacerbation of chronic obstructive airways disease Status: Acute Category: Medical Code(s): J44.1 - Chronic obstructive pulmonary disease with (acute) exacerbation (2) Severe aortic regurgitation Status: Acute Category: Medical Code(s): I35.1 - Nonrheumatic aortic (valve) insufficiency (3) Anxiety Status: Chronic Category: Medical Code(s): F41.9 - Anxiety disorder, unspecified (4) CAD (coronary artery disease) Status: Chronic Qualifiers: Coronary Disease-Associated Artery/Lesion type: [place] artery [place] vs. transplanted heart: [place] heart Associated angina: unspecified whether angina present Qualified Code(s): I25.10 - Atherosclerotic heart disease of [place] coronary artery without angina pectoris Category: Medical Code(s): I25.10 - Atherosclerotic heart disease of [place] coronary artery without angina pectoris (5) HUGO (acute kidney injury) Status: Acute Category: Medical Code(s): N17.9 - Acute kidney failure, unspecified (6) Anemia Status: Acute Qualifiers: Anemia type: unspecified type Qualified Code(s): D64.9 - Anemia, unspecified Category: Medical Code(s): D64.9 - Anemia, unspecified (7) Carotid artery disease without cerebral infarction Status: Acute Category: Medical Code(s): I77.9 - Disorder of arteries and arterioles, unspecified (8) Diastolic dysfunction Status: Acute Category: Medical Code(s): I51.89 - Other ill-defined heart diseases
--- NOTE | 2022-06-26 09:29 | PC.NURSE ---
Spoke with Laureano RN in Er to check to see if pt left dentures in ER. She stated that they are not down there.
--- NOTE | 2022-06-26 09:34 | HMH.PULMPN ---
Internal Medicine - PN: Subj *Date: 06/26/22 *Time: 11:10 Interval history: No acute respiratory vents overnight. Admits continued improvement in her symptoms. Exam - Constitutional Constitutional:: Present: no acute distress, comfortable - HENMT Exam HENMT: Present: normocephalic - Eye Exam Eyes:: Present: normal appearance both eyes and related structures - Neck Exam Neck:: Present: normal visual inspection - Respiratory Exam Respiratory:: Present: able to speak in complete sentences, respiratory distress, wheezing - Cardiovascular Exam Cardiac:: Present: S1, S2 - GI Exam GI:: Present: soft - Skin Exam Skin: Present: warm, no rash - Neurological Exam Neurological: Present: alert, awake - Extremities Exam Extremities: Present: no cyanosis, no clubbing, no edema Assessment and Plan (1) Acute exacerbation of chronic obstructive airways disease Status: Acute Category: Medical Code(s): J44.1 - Chronic obstructive pulmonary disease with (acute) exacerbation (2) Severe aortic regurgitation Status: Acute Category: Medical Code(s): I35.1 - Nonrheumatic aortic (valve) insufficiency (3) Anxiety Status: Chronic Category: Medical Code(s): F41.9 - Anxiety disorder, unspecified (4) CAD (coronary artery disease) Status: Chronic Qualifiers: Coronary Disease-Associated Artery/Lesion type: [place] artery [place] vs. transplanted heart: [place] heart Associated angina: unspecified whether angina present Qualified Code(s): I25.10 - Atherosclerotic heart disease of [place] coronary artery without angina pectoris Category: Medical Code(s): I25.10 - Atherosclerotic heart disease of [place] coronary artery without angina pectoris (5) HUGO (acute kidney injury) Status: Acute Category: Medical Code(s): N17.9 - Acute kidney failure, unspecified (6) Anemia Status: Acute Qualifiers: Anemia type: unspecified type Qualified Code(s): D64.9 - Anemia, unspecified Category: Medical Code(s): D64.9 - Anemia, unspecified (7) Carotid artery disease without cerebral infarction Status: Acute Category: Medical Code(s): I77.9 - Disorder of arteries and arterioles, unspecified (8) Diastolic dysfunction Status: Acute Category: Medical Code(s): I51.89 - Other ill-defined heart diseases (9) LVH (left ventricular hypertrophy) Status: Acute Category: Medical Code(s): I51.7 - Cardiomegaly (10) Tobacco use Status: Acute Category: Social Hx Code(s): Z72.0 - Tobacco use (11) History of intravenous drug use in remission Status: Chronic Category: Social Hx Code(s): Z87.898 - Personal history of other specified conditions (12) Hyperlipidemia Status: Chronic Qualifiers: Hyperlipidemia type: mixed hyperlipidemia Qualified Code(s): E78.2 - Mixed hyperlipidemia Category: Medical Code(s): E78.5 - Hyperlipidemia, unspecified (13) Severe sepsis with acute organ dysfunction Status: Acute Category: Medical Code(s): A41.9 - Sepsis, unspecified organism; R65.20 - Severe sepsis without septic shock - Assessment and plan all Dx Assessment and Plan for all problems:: #Acute on chronic hypoxic respiratory failure: #COPD exacerbation: 56-year-old female greater than [id number] smoking history current smoker and COPD, E. coli Klebsiella pneumonia, aortic regurgitation presented to the hospital worsening respiratory distress cough and worsening productive phlegm. Patient aortic insufficiency likely moderate to severe, unable to quantify secondary poor imaging techniques as pe cradiology, patient has been noncompliant to receive CARMEN. Chest x-ray no dense consolidation, questionable right lower lobe pulmonary infiltrate. Afebrile. Evidence of leukocytosis. Hemodynamically stable. Denies any sick contacts. Interval update: No acute respiratory vents overnight. Continues to be on 2 L nasal cannula. Auscultation significantly improved wheezing.
--- NOTE | 2022-06-26 09:35 | XR_ITS ---
FINAL REPORT CLINICAL HISTORY: Hypoxia COMPARISON: 06/24/2022 FINDINGS: A portable view of the chest was obtained. Comparison is made to a prior exam dated 06/24/2022. Cardiac and mediastinal silhouettes are within normal limits. Left basilar opacities have increased from the prior exam and may represent pneumonia. There is no pleural effusion or pneumothorax. IMPRESSION: Findings may represent pneumonia. Reviewed, Interpreted and Dictated by Dariana Darby MD Transcribed by Lisa Bryson Authenticated and [facility]
--- NOTE | 2022-06-26 14:04 | PC.NURSE ---
rounded on patient. no concerns or questions at this time. patient up to chair. appears drowsy but communicating normally with staff. did request a cup of ice, but then decided to obtain a shower. will offer after. encouraged patient to ring out with any concerns or needs.
--- NOTE | 2022-06-26 14:14 | PC.NURSE ---
Spoke with stress test she had an appt for tomorrow they want to do it while shes here. Want her to be NPO at midnight.
--- NOTE | 2022-06-26 14:16 | PC.NURSE ---
Spoke with Yaneli from dr solitario office to let them know the pt is going to get stress test tomorrow. She stated that she will let him know.
--- NOTE | 2022-06-26 17:00 | PC.NURSE ---
Multiple nurses attempted to get IV access with out luck. I paged Dr. Pineda to see if we could change steroid and ABX to PO. He d/c'd zosyn, and medrol. Wanted omnicef 300 BID, and pred BID. I faxed over the orders to [facility].
--- NOTE | 2022-06-26 17:42 | PC.NURSE ---
Pt has been up to the chair most of the day, and has tolerated it well. She got up and gave her self a shower. She accidentally pulled put her IV. Multiple nurses attempted to get IV, and were unsuccessful. Got her medication changed to PO per Dr. Pineda. She has tolerated meals today.
[2022-06-27 00:41] VITALS: PULSE 81
[2022-06-27 00:42] VITALS: PULSE 90
[2022-06-27 03:38] VITALS: BP 159/92; PULSE 70; RESP 22; TEMP 36.8; O2SAT 97
[2022-06-27 04:56] VITALS: BMI 23.9
--- NOTE | 2022-06-27 05:10 | PC.NURSE ---
No acute changes. Pt has not voiced any complaints to staff. Able to ambulate to BR with standby assist. Pt tolerating 2 L nc well with sats >90%. Continues to have audible wheezing. Ex rhonchi scattered t/o left bases. Call light within reach.
[2022-06-27 06:10] VITALS: PULSE 75; RESP 28; O2SAT 95
[2022-06-27 06:36] LABS: Basophils % 0.3 % (0.1-2.0); Eosinophils # 0.1 K/mm3 (0.0-0.4); Hematocrit 26.5 % (37.0-47.0); Hemoglobin 8.5 g/dL (12.2-16.2); Lymphocytes % 8.7 % (10-50); Mean Corpuscular Hemoglobin 27.1 pg (27.0-31.2); Mean Corpuscular Volume 84.7 fl (81-99); Mean Platelet Volume 8.5 fl (7.4-10.4); Monocytes # 0.8 K/mm3 (0.1-1.0); Monocytes % 6.9 % (1.7-9.3); Neutrophils # 9.7 K/mm3 (1.8-7.8); Neutrophils % 83.1 % (37.0-80.0); Platelet Count 329 K/mm3 (142-424); Red Blood Count 3.13 M/mm3 (4.20-5.40); White Blood Count 11.7 K/mm3 (4.8-10.8)
[2022-06-27 07:00] LABS: Anion Gap 7.6 mEq/L (5-15); Blood Urea Nitrogen 27 mg/dl (7-17); Calcium 8.9 mg/dl (8.4-10.2); Carbon Dioxide 22 mmol/L (22.0-30.0); Chloride 116 mmol/L (98-107); Creatinine Clearance Estimated 45 mL/min (50-200); Estimated Glomerular Filt Rate 43 ml/min (>60); GFR (African American) 51 ML/MIN (>60); Glucose 114 mg/dl (74-100); Potassium 4.6 mmoL/L (3.5-5.1); Sodium 141 mmol/L (136-145)
--- NOTE | 2022-06-27 08:25 | HMH.PNCARD ---
Subjective Date: 06/27/22 Time: 08:25 Principal diagnosis: SOA Interval history: 56-year-old white female returning to room from nuclear medicine in no acute distress. Patient states her breathing has improved. Lexiscan Myoview canceled at this time due to patient's recent COPD exacerbation. Exam Vital signs and Labs for Last 24 Hours: Temp Pulse Resp BP Pulse Ox 98.2 F 75 28 H 159/92 H 95 06/27/22 03:38 06/27/22 06:10 06/27/22 06:10 06/27/22 03:38 06/27/22 06:10 Laboratory Results - last 24 hr 06/27/22 06:08: WBC 11.7 H D, RBC 3.13 L, Hgb 8.5 L, Hct 26.5 L, MCV 84.7, MCH 27.1, MCHC 32.0, RDW 18.0 H, Plt Count 329, MPV 8.5, Neut % (Auto) 83.1 H, Lymph % (Auto) 8.7 L, [place] % (Auto) 6.9, Eos % (Auto) 1.0, Baso % (Auto) 0.3, Neut # (Auto) 9.7 H, Lymph # (Auto) 1.0, [place] # (Auto) 0.8, Eos # (Auto) 0.1, Baso # (Auto) 0.0 06/27/22 06:08: Sodium 141, Potassium 4.6, Chloride 116 H, Carbon Dioxide 22, Anion Gap 7.6, BUN 27 H, Creatinine 1.30 H, Estimated Creat Clear 45, Estimated GFR 43 L, Est GFR ( Amer) 51 L, Glucose 114 H, Calcium 8.9 I & O for Last 24 hours: Intake & Output 06/24/22 06/25/22 06/26/22 06/27/22 11:59 11:59 11:59 11:59 Intake Total 240 / 240 480 / 480 Balance 240 / 240 480 / 480 Weight 102 lb 13.944 oz 131 lb 4.8 oz 129 lb 14.4 oz Microbiology Reports for the Last 24 Hours: Microbiology 06/25/22 22:00 Sputum - Expectorated Sputum Gram Stain - Final 06/25/22 22:00 Sputum - Expectorated Sputum Sputum Culture - Preliminary Gram Negative Rods 06/24/22 21:30 Blood Blood Culture - Preliminary NO GROWTH AFTER 48 HOURS 06/24/22 21:30 Blood Blood Culture - Preliminary NO GROWTH AFTER 48 HOURS - Constitutional no acute distress - *Routine Respiratory Exam Present: rhonchi - *Routine Cardiovascular Exam Present: RRR Progress Note: A&P (1) Acute exacerbation of chronic obstructive airways disease Status: Acute (2) Severe aortic regurgitation Status: Acute (3) Anxiety Status: Chronic (4) CAD (coronary artery disease) Status: Chronic (5) HUGO (acute kidney injury) Status: Acute (6) Anemia Status: Acute (7) Carotid artery disease without cerebral infarction Status: Acute (8) Diastolic dysfunction Status: Acute (9) LVH (left ventricular hypertrophy) Status: Acute (10) Tobacco use Status: Acute (11) 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 Cardiac status is stable with severity of aortic insufficiency still undetermined by echocardiogram this admission. Previous echo showed at least moderate if not severe insufficiency. Prior attempts at CARMEN have been unsuccessful due to patient not showing up for the procedure. Patient can be discharged from a cardiac standpoint. She will let us know when she can arrange for a ride for the CARMEN. Home medication recommendations Aspirin 81 mg daily Plavix 75 mg daily Bisoprolol 5 mg daily Crestor 5 mg daily Lasix 20 mg daily Follow-up in our office in 1 to 2 weeks.
--- NOTE | 2022-06-27 08:33 | SW/DCPLANNER ---
Addendum entered by Reva Nielsen 06/27/22 14:32: Transportation ID # [id number]. Addendum entered by Reva Nielsen 06/27/22 13:54: I have arranged [employer] for this patient to return to [facility] for the next 9 days for IM Invanz at 12PM. Patient agrees and understands this plan. Patient will discharge home today. Original Note: I spoke with patient this AM during morning rounds. Patient stated that she uses [employer] for MD appointments. Due to patient missing her last seven apts for CARMEN w/ Cardiology I have informed patient to call this AM and schedule a ride for Saturday at 1PM for Cardiology appointment. I will follow up with this patient to make sure transportation is scheduled.
--- NOTE | 2022-06-27 08:43 | HMH.ACPN2 ---
Internal Medicine - PN: Subj *Date: 06/27/22 *Time: 08:43 Exam Vital signs and Labs for Last 24 Hours: Temp Pulse Resp BP Pulse Ox 98.2 F 75 28 H 159/92 H 95 06/27/22 03:38 06/27/22 06:10 06/27/22 06:10 06/27/22 03:38 06/27/22 06:10 Laboratory Results - last 24 hr 06/27/22 06:08: WBC 11.7 H D, RBC 3.13 L, Hgb 8.5 L, Hct 26.5 L, MCV 84.7, MCH 27.1, MCHC 32.0, RDW 18.0 H, Plt Count 329, MPV 8.5, Neut % (Auto) 83.1 H, Lymph % (Auto) 8.7 L, [place] % (Auto) 6.9, Eos % (Auto) 1.0, Baso % (Auto) 0.3, Neut # (Auto) 9.7 H, Lymph # (Auto) 1.0, [place] # (Auto) 0.8, Eos # (Auto) 0.1, Baso # (Auto) 0.0 06/27/22 06:08: Sodium 141, Potassium 4.6, Chloride 116 H, Carbon Dioxide 22, Anion Gap 7.6, BUN 27 H, Creatinine 1.30 H, Estimated Creat Clear 45, Estimated GFR 43 L, Est GFR ( Amer) 51 L, Glucose 114 H, Calcium 8.9 I & O for Last 24 hours: Intake & Output 06/24/22 06/25/22 06/26/22 06/27/22 23:59 23:59 23:59 23:59 Intake Total 720 / 720 Balance 720 / 720 Weight 102 lb 13.944 oz 123 lb 1 oz 131 lb 9.855 oz 129 lb 14.4 oz Microbiology Reports for the Last 24 Hours: Microbiology 06/25/22 22:00 Sputum - Expectorated Sputum Gram Stain - Final 06/25/22 22:00 Sputum - Expectorated Sputum Sputum Culture - Preliminary Gram Negative Rods 06/24/22 21:30 Blood Blood Culture - Preliminary NO GROWTH AFTER 48 HOURS 06/24/22 21:30 Blood Blood Culture - Preliminary NO GROWTH AFTER 48 HOURS Assessment and Plan (1) Acute exacerbation of chronic obstructive airways disease Status: Acute Category: Medical Code(s): J44.1 - Chronic obstructive pulmonary disease with (acute) exacerbation (2) Severe aortic regurgitation Status: Acute Category: Medical Code(s): I35.1 - Nonrheumatic aortic (valve) insufficiency (3) Anxiety Status: Chronic Category: Medical Code(s): F41.9 - Anxiety disorder, unspecified (4) CAD (coronary artery disease) Status: Chronic Qualifiers: Coronary Disease-Associated Artery/Lesion type: [place] artery [place] vs. transplanted heart: [place] heart Associated angina: unspecified whether angina present Qualified Code(s): I25.10 - Atherosclerotic heart disease of [place] coronary artery without angina pectoris Category: Medical Code(s): I25.10 - Atherosclerotic heart disease of [place] coronary artery without angina pectoris (5) HUGO (acute kidney injury) Status: Acute Category: Medical Code(s): N17.9 - Acute kidney failure, unspecified (6) Anemia Status: Acute Qualifiers: Anemia type: unspecified type Qualified Code(s): D64.9 - Anemia, unspecified Category: Medical Code(s): D64.9 - Anemia, unspecified (7) Carotid artery disease without cerebral infarction Status: Acute Category: Medical Code(s): I77.9 - Disorder of arteries and arterioles, unspecified (8) Diastolic dysfunction Status: Acute Category: Medical Code(s): I51.89 - Other ill-defined heart diseases (9) LVH (left ventricular hypertrophy) Status: Acute Category: Medical Code(s): I51.7 - Cardiomegaly (10) Tobacco use Status: Acute Category: Social Hx Code(s): Z72.0 - Tobacco use (11) History of intravenous drug use in remission Status: Chronic Category: Social Hx Code(s): Z87.898 - Personal history of other specified conditions (12) Hyperlipidemia Status: Chronic Qualifiers: Hyperlipidemia type: mixed hyperlipidemia Qualified Code(s): E78.2 - Mixed hyperlipidemia Category: Medical Code(s): E78.5 - Hyperlipidemia, unspecified (13) Severe sepsis with acute organ dysfunction Status: Acute Category: Medical Code(s): A41.9 - Sepsis, unspecified organism; R65.20 - Severe sepsis without septic shock
--- NOTE | 2022-06-27 10:12 | HMH.PULMPN ---
Internal Medicine - PN: Subj *Date: 06/27/22 *Time: 12:11 Interval history: No acute respiratory vents overnight. Continued improvement in her respiratory symptoms. Exam - Constitutional Constitutional:: Present: no acute distress, comfortable - HENMT Exam HENMT: Present: normocephalic - Eye Exam Eyes:: Present: normal appearance both eyes and related structures - Neck Exam Neck:: Present: normal visual inspection - Respiratory Exam Respiratory:: Present: able to speak in complete sentences, respiratory distress, rhonchi. Absent: wheezing - Cardiovascular Exam Cardiac:: Present: S1, S2 - GI Exam GI:: Present: soft - Skin Exam Skin: Present: warm, no rash - Neurological Exam Neurological: Present: alert, awake - Extremities Exam Extremities: Present: no cyanosis, no clubbing Assessment and Plan (1) Acute exacerbation of chronic obstructive airways disease Status: Acute Category: Medical Code(s): J44.1 - Chronic obstructive pulmonary disease with (acute) exacerbation (2) Severe aortic regurgitation Status: Acute Category: Medical Code(s): I35.1 - Nonrheumatic aortic (valve) insufficiency (3) Anxiety Status: Chronic Category: Medical Code(s): F41.9 - Anxiety disorder, unspecified (4) CAD (coronary artery disease) Status: Chronic Qualifiers: Qualified Code(s): I25.10 - Atherosclerotic heart disease of [place] coronary artery without angina pectoris Category: Medical Code(s): I25.10 - Atherosclerotic heart disease of [place] coronary artery without angina pectoris (5) HUGO (acute kidney injury) Status: Acute Category: Medical Code(s): N17.9 - Acute kidney failure, unspecified (6) Anemia Status: Acute Qualifiers: Qualified Code(s): D64.9 - Anemia, unspecified Category: Medical Code(s): D64.9 - Anemia, unspecified (7) Carotid artery disease without cerebral infarction Status: Acute Category: Medical Code(s): I77.9 - Disorder of arteries and arterioles, unspecified (8) Diastolic dysfunction Status: Acute Category: Medical Code(s): I51.89 - Other ill-defined heart diseases (9) LVH (left ventricular hypertrophy) Status: Acute Category: Medical Code(s): I51.7 - Cardiomegaly (10) Tobacco use Status: Acute Category: Social Hx Code(s): Z72.0 - Tobacco use (11) History of intravenous drug use in remission Status: Chronic Category: Social Hx Code(s): Z87.898 - Personal history of other specified conditions (12) Hyperlipidemia Status: Chronic Qualifiers: Qualified Code(s): E78.2 - Mixed hyperlipidemia Category: Medical Code(s): E78.5 - Hyperlipidemia, unspecified (13) Severe sepsis with acute organ dysfunction Status: Acute Category: Medical Code(s): A41.9 - Sepsis, unspecified organism; R65.20 - Severe sepsis without septic shock - Assessment and plan all Dx Assessment and Plan for all problems:: #Acute on chronic hypoxic respiratory failure: #COPD exacerbation: #HAP: 56-year-old female greater than [id number] smoking history current smoker and COPD, E. coli Klebsiella pneumonia, aortic regurgitation presented to the hospital worsening respiratory distress cough and worsening productive phlegm. Patient aortic insufficiency likely moderate to severe, unable to quantify secondary poor imaging techniques as pe cradiology, patient has been noncompliant to receive CARMEN. Chest x-ray no dense consolidation, questionable right lower lobe pulmonary infiltrate. Afebrile. Evidence of leukocytosis. Hemodynamically stable. Denies any sick contacts. Interval update: No acute respiratory events overnight. Improving oxygen status, on 2 L nasal cannula saturating 95%. Chest x-ray from 06/26 worsening infiltrates concerning for pneumonia. Patient already on antibiotics. Prelim sptum cultures showing gram-negative rods. Plan: -Continue Zosyn for HAP -given her history of noncompliance and issues with PIC
[2022-06-27 11:03] VITALS: PULSE 78; PULSE 79; O2SAT 94
--- NOTE | 2022-06-27 11:55 | HMH.DCSUM ---
General - General Admission date:: 06/25/22 Discharge date: 06/27/22 HPI HPI: this patient with known hx of ht dis and copd and presents with progressive sob and resp distress - pt has attempted as outpt but despite compliance with meds has had progressive sx with fatigue and dec ambulation and adl- despite ed treatment remained very symptomatic and required admit for treatment and card and pul eval- Hospital Course Hospital Course: 56-year-old female patient presented to the emergency department with increasing shortness of breath and in respiratory distress. She does report fatigue increasing shortness of breath and difficulty with ADLs she does have a history of heart disease and COPD. In the past she has had compliance issues Chest reveals left basilar pneumonia 06/25/25 ECHO: Conclusion 1. Technically difficult and very poor study, valvular structures are poorly visualized. Probably preserved left ventricular systolic function, estimated ejection fraction 55% with no obvious regional wall motion abnormality, diastolic parameters are inconclusive. 2. Aortic insufficiency present which is difficult to quantify from the study. 3. Mild mitral and tricuspid regurgitation. 4. No significant pericardial effusion noted. 5. Inferior vena cava is poorly visualized. Not patient has been on and get all her Electronically signed by : Vipin Chaparro MD Cardiology has seen and recommends: Clinically improving from a pulmonary standpoint per patient. Cardiac status is stable with severity of aortic insufficiency still undetermined by echocardiogram this admission. Previous echo showed at least moderate if not severe insufficiency. Prior attempts at CARMEN have been unsuccessful due to patient not showing up for the procedure. Patient can be discharged from a cardiac standpoint. She will let us know when she can arrange for a ride for the CARMEN. Home medication recommendations Aspirin 81 mg daily Plavix 75 mg daily Bisoprolol 5 mg daily Crestor 5 mg daily Lasix 20 mg daily Follow-up in our office in 1 to 2 weeks. Pulmonary has seen and recommends: 56-year-old female greater than [id number] smoking history current smoker and COPD, E. coli Klebsiella pneumonia, aortic regurgitation presented to the hospital worsening respiratory distress cough and worsening productive phlegm. Patient aortic insufficiency likely moderate to severe, unable to quantify secondary poor imaging techniques as pe cradiology, patient has been noncompliant to receive CARMEN. Chest x-ray no dense consolidation, questionable right lower lobe pulmonary infiltrate. Afebrile. Evidence of leukocytosis. Hemodynamically stable. Denies any sick contacts. Interval update: No acute respiratory events overnight. Improving oxygen status, on 2 L nasal cannula saturating 95%. Chest x-ray from 06/26 worsening infiltrates concerning for pneumonia. Patient already on antibiotics. Prelim sptum cultures showing gram-negative rods. Plan: -Continue Zosyn for HAP -given her history of noncompliance and issues with PICC line placement, the plan was made to we will change to Invanz IM daily for 10 more days to complete a 14-day course for her chronic colonization of multidrug-resistant bacteria. -Continue DuoNebs every 6 hours along with budesonide every 12 scheduled, continue home triple inhaler therapy upon discharge -Distracted prednisone 40 mg daily for 5 more days. -Chest percussion therapy every 12 hours and sputum clearance techniques, continue flutter valve upon discharge #Thank you for involving pulmonary in this patient care. We will follow the patient in pulmonary clinic in 2 weeks with a CXR, full PFT and a 6-minute walk testing 56-year-old female patient admitted for pneumonia, cardiology has seen for aortic insufficiency and extent still undetermined by echocardiogram during this admission. Cardiology has reviewed her medications and adjusted were neces
--- NOTE | 2022-06-27 12:38 | PC.NURSE ---
called office to set up appointment. patient has office appointment for 07/04. office will set up pft and 6mwt and give that appoint to patient in office
--- NOTE | 2022-06-27 13:06 | HMH.PHAINT ---
DISCHARGE MEDICATION COUNSELING PROVIDED. DISCUSSED THE SHORT-COURSE PREDNISONE THERAPY (TAKE TWICE DAILY,MAY UPSET STOMACH, HAVE IMPACT ON BLOOD SUGAR, AND MAY CAUSE INSOMNIA IF TAKEN TOO LATE IN THE DAY). PATIENT REQUESTED THE PRESCRIPTION BE SENT TO CL[facility]IC PHARMACY [facility]STEAD OF [facility]. PATIENT ENDORSED NO QUESTIONS AT THIS TIME.
--- NOTE | 2022-06-28 10:40 | CARE MANAGER ---
Contacted patient related to hospital discharge. Patient states she feels awful and is worse than yesterday. She has taken her medications and completed a nebulizer treatment. She states she will not be able to come for her injection today because she will not be able to get back up the [address] [place] [address] [place]. She said she got up them yesterday but it was a very difficult task. She asked about home health, but unfortunately there are no agencies that will accept her insurance. Finn Ramírez APRN is going to call the patient back and discuss the issues with her. YULISSA Cortes
== END 2022-06-27 14:32 | disposition home or self-care (01) ==
LOC: ER 21:53 → 2ND 06-25 11:55
PROVIDERS: Nurse Practitioner Family; Admitting Provider Emergency Medicine; Emergency Provider Emergency Medicine; PCP Emergency Medicine; Visit Provider Emergency Medicine
DX: J44.1 Chronic obstructive pulmonary disease with (acute) exacerbation (principal); Z79.899 Other long term (current) drug therapy; Z79.890 Hormone replacement therapy; Z79.02 Long term (current) use of antithrombotics/antiplatelets; Z79.82 Long term (current) use of aspirin; Z88.8 Allergy status to other drugs, medicaments and biological substances; I11.0 Hypertensive heart disease with heart failure; I50.9 Heart failure, unspecified; Z99.81 Dependence on supplemental oxygen; F17.210 Nicotine dependence, cigarettes, uncomplicated; I25.10 Atherosclerotic heart disease of native coronary artery without angina pectoris; I65.23 Occlusion and stenosis of bilateral carotid arteries; I70.1 Atherosclerosis of renal artery; K21.9 Gastro-esophageal reflux disease without esophagitis; Z95.5 Presence of coronary angioplasty implant and graft; Z20.822 Contact with and (suspected) exposure to COVID-19
CPT/HCPCS: 36415; 71045; 80048; 80053; 83605; 83735; 85007; 85025; 85651; 86140; 87040; 87070; 87077; 87186; 87205; 93005; 93306; 94640; 94667; 94668; 94760; 94761; 99285; C9803; G0378; J0574; J1335; J2543; U0003; U0005

== ENCOUNTER 2022-06-28 12:05 | Outpatient (CLI) | payer OTHER, SELFPAY ==
--- NOTE | 2022-06-28 12:25 | PC.NURSE ---
1225-notified 's stream control officer Evelina FlowersRN about pt condition; pt lethargic and drowsy, will respond, vss, pt has rhonchi in all lung brown via auscultation; recommended per evelina pt to be evaluated in er.
[2022-06-28 12:36] VITALS: BP 146/76; PULSE 68; RESP 20; TEMP 36.4; O2SAT 99
== END 2022-06-28 12:36 | disposition home or self-care (01) ==
LOC: INF 12:06
PROVIDERS: PCP Emergency Medicine; Visit Provider Emergency Medicine
DX: J15.6 Pneumonia due to other Gram-negative bacteria (principal)
CPT/HCPCS: 96372; J1335

== ENCOUNTER 2022-06-28 12:37 | Emergency (ER) | payer OTHER, SELFPAY ==
[2022-06-28 12:55] VITALS: BP 0/0; PULSE 0; RESP 0; TEMP -17.7; TEMP 0; O2SAT 0
--- NOTE | 2022-06-28 12:55 | PC.NURSE ---
registration staff called states pt is reporting she does not want to wait in lobby for bed availability, reports she is leaving. Pt LWBS per ER staff or ER MD.
== END 2022-06-28 12:55 | disposition left against medical advice (07) ==
LOC: ER 14:05
PROVIDERS: Emergency Provider Emergency Medicine; PCP Emergency Medicine
DX: Z53.21 Procedure and treatment not carried out due to patient leaving prior to being seen by health care provider (principal)

== ENCOUNTER 2022-06-28 23:44 | Observation (INO) | payer OTHER, SELFPAY ==
[2022-06-28 23:44] VITALS: BP 158/85; PULSE 81; RESP 20; TEMP 36.8; O2SAT 96; BMI 23.9
--- NOTE | 2022-06-28 23:47 | ECG_ITS ---
APPROVED REPORT Exam: Resting ECG HR:83 bpm ECG Measurements Heart Rate 83 AXES KS 124 P 72 QRSd 93 QRS 66 QT 357 T 72 QTc 397 Conclusion SINUS RHYTHM NORMAL ECG UNCONFIRMED REPORT Electronically signed by : Evaristo Gonzalez MD 06/29/2022 14:53:32
[2022-06-29] VITALS (9 sets, daily range): BP systolic 140–188; BP diastolic 77–94; PULSE 73–103; RESP 13–20; TEMP 36.6–37.2; O2SAT 95–98; BMI 22.8
--- NOTE | 2022-06-29 00:05 | XR_ITS ---
PROCEDURE INFORMATION: Exam: XR Chest Exam date and time: 06/29/2022 12:41 AM Age: 56 years old Clinical indication: Pain; Dyspnea and wheezing; Right-sided; Additional info: Chest pain TECHNIQUE: Imaging protocol: Radiologic exam of the chest. Views: 2 views. COMPARISON: CR XR CHEST PORTABLE 06/26/2022 9:36 AM FINDINGS: Lungs: There is a new left lung scar. Bilateral apical scarring. There is mild widespread architectural distortion and possible ground-glass opacities best seen on lateral image. Pleural spaces: Unremarkable. No pleural effusion. No pneumothorax. Heart/Mediastinum: Unremarkable. No cardiomegaly. Bones/joints: Unremarkable. IMPRESSION: There is mild widespread architectural distortion and possible ground-glass opacities best seen on lateral image. Atypical pneumonia, such as COVID-19, could produce a similar appearance in the appropriate clinical setting.
--- NOTE | 2022-06-29 00:12 | PC.NURSE ---
MEDICATIONS CONFIRMED WITH PATIENT. NO COMPLAINTS VOICED.
--- NOTE | 2022-06-29 00:39 | HMH.EDGENADL ---
ED Disposition Clinical Impression: Pneumonia, COPD (chronic obstructive pulmonary disease) Disposition: Admitted As Inpatient Condition on Discharge: Good - Critical Care Critical Care Time: No Attestation: On 06/28/22, the high probability of a clinically significant, sudden or life threatening deterioration of the following system(s) required my full and direct attention, intervention and personal management. The time I documented below is in addition to time spent performing reported procedures but includes the following listed in this critical care notation. Medical Decision Making - Berry Inquiry Pt receiving controlled substance: No Vital Signs: 06/28/22 23:44 06/29/22 00:15 06/29/22 01:00 Temperature 98.2 F Temperature Source Oral Pulse Rate 83 79 Pulse Rate [Left Radial] 81 Respiratory Rate 20 16 Blood Pressure 155/80 H Blood Pressure [Right Arm] 158/85 H Blood Pressure Mean [Right Arm] 109 Blood Pressure Source [Right Arm] Automatic Cuff Blood Pressure Position [Right Arm] Sitting 02 Sat by Pulse Oximetry 96 97 Oxygen Delivery Method Nasal Cannula Nasal Cannula Oxygen Flow Rate (LPM) 2 06/29/22 01:10 06/29/22 01:30 06/29/22 03:00 Temperature Temperature Source Pulse Rate 79 87 93 H Pulse Rate [Left Radial] Respiratory Rate 19 20 Blood Pressure 166/78 H 166/91 H Blood Pressure [Right Arm] Blood Pressure Mean [Right Arm] Blood Pressure Source [Right Arm] Blood Pressure Position [Right Arm] 02 Sat by Pulse Oximetry 95 95 Oxygen Delivery Method Nasal Cannula Nasal Cannula Oxygen Flow Rate (LPM) 2 2 06/29/22 03:30 06/29/22 04:14 Temperature 98.9 F Temperature Source Oral Pulse Rate 73 82 Pulse Rate [Left Radial] Respiratory Rate 13 20 Blood Pressure 188/86 H 140/77 Blood Pressure [Right Arm] Blood Pressure Mean [Right Arm] Blood Pressure Source [Right Arm] Blood Pressure Position [Right Arm] 02 Sat by Pulse Oximetry 98 Oxygen Delivery Method Nasal Cannula Nasal Cannula Oxygen Flow Rate (LPM) 2 2 - Lab Data Lab Results 06/29/22 00:54: Urine Color Yellow, Urine Appearance Clear, Urine pH 7.0, Ur Specific [place] 1.015, Urine Protein Negative, Urine Glucose (UA) Negative, Urine Ketones Negative, Urine Blood Negative, Urine Nitrate Negative, Urine Bilirubin Negative, Urine Urobilinogen 0.2, Ur Leukocyte Esterase Trace, Urine RBC None, Urine WBC Occasional, Ur Squamous Epith Cells 5-10, Urine Bacteria None 06/29/22 02:16: WBC 9.0, RBC 3.43 L, Hgb 9.0 L, Hct 29.9 L, MCV 87.2, MCH 26.3 L, MCHC 30.2 L, RDW 18.6 H, Plt Count 321, MPV 8.1, Neut % (Auto) 83.8 H, Lymph % (Auto) 11.1, [place] % (Auto) 4.9, Eos % (Auto) 0.1, Baso % (Auto) 0.2, Neut # (Auto) 7.6, Lymph # (Auto) 1.0, [place] # (Auto) 0.4, Eos # (Auto) 0.0, Baso # (Auto) 0.0 06/29/22 02:16: Sodium 140, Potassium 3.1 L D, Chloride 111 H, Carbon Dioxide 24, Anion Gap 8.1, BUN 22 H, Creatinine 1.20 H, Estimated Creat Clear 50, Estimated GFR 47 L, Est GFR ( Amer) 56 L, Glucose 104 H, Calcium 8.9, Total Bilirubin < 0.1 L, Conjugated Bilirubin 0.0, Unconjugated Bilirubin 0.0, AST 28, ALT 13, Alkaline Phosphatase 68, Troponin I < 0.01, Total Protein 6.2 L, Albumin 3.3 L 06/29/22 02:16: Lactate 0.7 06/29/22 02:16: NT-Pro-B Natriuret Pep 1450 H 06/29/22 03:09: SARS-CoV-2 (PCR) Not detected, Influenza A Untype (PCR) Not detected, Influenza Type B (PCR) Not detected Result diagrams: 06/29/22 02:16 06/29/22 02:16 Orders (Tests/Meds): ED MEDICATIONS Generic Name Dose Route Start Last Admin Trade Name Freq PRN Reason Stop Dose Admin Albuterol/Ipratropium 3 ml 06/29/22 00:49 06/29/22 01:10 Ipratropium/Albuterol 3 Ml [facility] 06/29/22 00:50 3 ml ONCE ONE Administration Albuterol/Ipratropium 3 ml 06/29/22 03:45 Ipratropium/Albuterol 3 Ml [facility] 07/29/22 03:44 Q1H CHAYA Methylprednisolone Sodium Succinate 125 mg 06/29/22 00:49 06/29/22 00:59 Methylprednisolo
--- NOTE | 2022-06-29 00:48 | PC.NURSE ---
Patient is currently resting in bed. Patient is severely somnolent but will appropriately arouse when speaking to you and answers questions appropriately. Patient does nod off while holding conversations.
--- NOTE | 2022-06-29 01:00 | PC.NURSE ---
at speaking with pt about POC
[2022-06-29 01:03] LABS: Microscopic, Urine URINE MICROSCOPIC (MICROSCOPIC)
--- NOTE | 2022-06-29 01:08 | PC.NURSE ---
RT at BS to administer breathing treatment
--- NOTE | 2022-06-29 01:09 | PC.NURSE ---
PT STATES SHORTNESS OF AIR HAS IMPROVED. PT DENIES CHEST PAIN AT THIS TIME. BLANKET PROVIDED FOR COMFORT. WCM.
[2022-06-29 02:47] LABS: Basophils % 0.2 % (0.1-2.0); Eosinophils % 0.1 % (0.1-12.0); Hematocrit 29.9 % (37.0-47.0); Lymphocytes % 11.1 % (10-50); Mean Corpuscular HGB Conc 30.2 g/dL (31.8-35.4); Mean Corpuscular Hemoglobin 26.3 pg (27.0-31.2); Mean Corpuscular Volume 87.2 fl (81-99); Mean Platelet Volume 8.1 fl (7.4-10.4); Monocytes # 0.4 K/mm3 (0.1-1.0); Monocytes % 4.9 % (1.7-9.3); Neutrophils # 7.6 K/mm3 (1.8-7.8); Neutrophils % 83.8 % (37.0-80.0); Platelet Count 321 K/mm3 (142-424); Red Blood Count 3.43 M/mm3 (4.20-5.40); Red Cell Distribution Width 18.6 % (11.5-17.5)
[2022-06-29 02:53] LABS: Appearance,Urine CLEAR (Clear); Bilirubin,Urine Negative (Negative); Blood, Urine Negative (Negative); Color,Urine YELLOW (Yellow); Glucose,Urine (UA) Negative (Negative); Ketones,Urine Negative (Negative); Leukocyte Esterase,Urine TRACE (Negative); Nitrate,Urine Negative (Negative); Protein,Urine Negative (Negative); Specific Gravity, Urine 1.015 (1.005-1.030); Urobilinogen,Urine 0.2 EU/dl (0.2)
[2022-06-29 02:55] LABS: Alanine Aminotransferase 13 U/L (12-78); Albumin Level 3.3 g/dl (3.5-5.0); Alkaline Phosphatase 68 U/L (38-126); Anion Gap 8.1 mEq/L (5-15); Aspartate Amino Transferase 28 U/L (14-36); Blood Urea Nitrogen 22 mg/dl (7-17); Calcium 8.9 mg/dl (8.4-10.2); Carbon Dioxide 24 mmol/L (22.0-30.0); Chloride 111 mmol/L (98-107); Creatinine Clearance Estimated 50 mL/min (50-200); Estimated Glomerular Filt Rate 47 ml/min (>60); GFR (African American) 56 ML/MIN (>60); Glucose 104 mg/dl (74-100); Potassium 3.1 mmoL/L (3.5-5.1); Sodium 140 mmol/L (136-145); Total Protein,Serum 6.2 g/dl (6.3-8.2)
[2022-06-29 02:56] LABS: Lactic Acid 0.7 mmol/L (0.7-2.1)
[2022-06-29 03:00] LABS: Bilirubin,Total < 0.1 mg/dl (0.2-1.3)
[2022-06-29 03:05] LABS: NT Pro Brain Natriuretic Pep. 1450 pg/mL (0-125)
[2022-06-29 03:18] LABS: Troponin I < 0.01 ng/ml (0.00-0.034)
[2022-06-29 03:23] LABS: Coronavirus 19, PCR Not Detected (NotDetected); Influenza A, PCR Not Detected (NotDetected); Influenza B, PCR Not Detected (NotDetected)
[2022-06-29 03:26] LABS: WBC,Urine Occasional #/hpf (0-3)
--- NOTE | 2022-06-29 03:39 | PC.NURSE ---
speaking with Dr. Valentin
--- NOTE | 2022-06-29 03:50 | PC.NURSE ---
PT MADE AWARE OF PLAN TO ADMIT AND STATES SHE IS AGREEABLE.
--- NOTE | 2022-06-29 04:44 | PC.NURSE ---
PATIENT UP TO FLOOR VIA STRETCHER @ THIS TIME.
[2022-06-29 05:20] LABS: Bilirubin,Indirect 0.1 mg/dL (0.0-0.9)
[2022-06-29 06:44] LABS: Basophils % 0.1 % (0.1-2.0); Eosinophils % 0.3 % (0.1-12.0); Hematocrit 30.5 % (37.0-47.0); Hemoglobin 9.5 g/dL (12.2-16.2); Lymphocytes # 0.5 K/mm3 (0.7-4.5); Lymphocytes % 4.9 % (10-50); Mean Corpuscular Hemoglobin 26.9 pg (27.0-31.2); Mean Corpuscular Volume 86.8 fl (81-99); Mean Platelet Volume 8.6 fl (7.4-10.4); Monocytes # 0.2 K/mm3 (0.1-1.0); Monocytes % 1.8 % (1.7-9.3); Neutrophils # 8.7 K/mm3 (1.8-7.8); Neutrophils % 92.9 % (37.0-80.0); Platelet Count 332 K/mm3 (142-424); Red Blood Count 3.52 M/mm3 (4.20-5.40); Red Cell Distribution Width 18.8 % (11.5-17.5); White Blood Count 9.4 K/mm3 (4.8-10.8)
[2022-06-29 06:47] LABS: Anion Gap 7.7 mEq/L (5-15); Blood Urea Nitrogen 22 mg/dl (7-17); Carbon Dioxide 23 mmol/L (22.0-30.0); Chloride 111 mmol/L (98-107); Creatinine Clearance Estimated 51 mL/min (50-200); Estimated Glomerular Filt Rate 52 ml/min (>60); GFR (African American) 62 ML/MIN (>60); Glucose 137 mg/dl (74-100); Potassium 3.7 mmoL/L (3.5-5.1); Sodium 138 mmol/L (136-145)
[2022-06-29 06:52] LABS: MANUAL DIFFERENTIAL MANUAL DIFFERENTIAL (MANUAL DIFF)
--- NOTE | 2022-06-29 06:57 | PC.NURSE ---
Since arriving to the floor pt has tolerated 2L NC with O2 >90%. Pt has voiced no c/o of pain. Pt has ambulated independently to bathroom. Lung sounds wheezing bilaterally throughout. Call light within reach.
[2022-06-29 07:17] LABS: Troponin I < 0.01 ng/ml (0.00-0.034)
--- NOTE | 2022-06-29 07:39 | HMH.PHAVTE ---
[facility] Pharmacy VTE Monitoring - Patient Demographics Admission date: 06/29/22 Report Date: 06/29/22 Time: 07:39 Allergies/Adverse Reactions: Patient Allergies atorvastatin Adverse Reaction (Intermediate, Verified 06/14/22 09:35) myalgia aspirin [ASPIRIN] Adverse Reaction (Unknown, Verified 06/14/22 09:35) codeine [CODEINE] Adverse Reaction (Unknown, Verified 06/14/22 09:35) propoxyphene [PROPOXYPHENE] Adverse Reaction (Unknown, Verified 06/14/22 09:35) tramadol [TRAMADOL] Adverse Reaction (Unknown, Verified 06/14/22 09:35) Height: 1.57 m Weight: 56.427 kg Patient Problems: Current Active Problems (Last Updated 02/24/19 @ 09:01 by SILVA Cat) Pneumonia (Acute) COPD (chronic obstructive pulmonary disease) (Acute) - VTE Risk Labs: VTE Related Lab Results Hgb 9.5 g/dL (12.2-16.2) L 06/29/22 06:11 Hct 30.5 % (37.0-47.0) L 06/29/22 06:11 Plt Count 332 K/mm3 (142-424) 06/29/22 06:11 BUN 22 mg/dl (7-17) H 06/29/22 06:11 Creatinine 1.10 mg/dl (0.52-1.04) H 06/29/22 06:11 Estimated Creat Clear 51 mL/min (50-200) 06/29/22 06:11 Was VTE Risk Assessment Performed: Yes VTE Score: 7 VTE Risk Level: Moderate Risk Clinical Trial Participant: No - Prophylaxis VTE Prophylaxis Ordered?: Yes Types of VTE Prophylaxis: TEDS Knee High
[2022-06-29 08:00] LABS: Lymphocytes % 6 % (10-50); Neutrophils % 94 % (42-76); Total Cells Counted 100
[2022-06-29 08:01] LABS: Anisocytosis 1+; Hypochromasia 1+; Platelet Estimate Normal
--- NOTE | 2022-06-29 08:12 | HMH.HP ---
*Admission Date: 06/29/22 *Chief complaint: Shortness of breath *History of present illness: This patient is a 56-year-old female with a history of COPD on 2 L nasal cannula at home and CAD status post stenting presenting to the emergency department for evaluation of chest pain, cough and shortness of breath. She reports that she was here earlier today for an antibiotic injection (Invanz) for pneumonia and noted to be wheezing, so she was into the emergency department, however she left because there was an hour wait. She was also recently discharged from the hospital after being admitted for COPD exacerbation and pneumonia. Since going home, she has still been smoking. She states that she has been using her medications and nebulizer treatments at home as prescribed, however she continues to wheeze and be short of air. States that 1 hour prior to arrival, she also developed left-sided chest pain that is dull and throbbing. It is nonradiating. Nothing makes it better or worse. She has had no fevers, chills, nausea, vomiting, abdominal pain, or other concerns. Of note, she is currently on Plavix. Denies any recent calf swelling, redness, or tenderness to palpation. She denies any history of blood clots clotting disorders. [facility] History 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: Reports:: Anxiety, Carotid Stenosis, Congestive Heart Failure, Chronic Obstructive Pulmonary Disease (COPD), Coronary Artery Disease, Depression, Gastroesophageal Reflux Disease(GERD), Heart Murmur, Hepatitis, Hiatal Hernia, Hyperlipidemia, Hypertension, Lung Disease, Peripheral Artery Disease, Peripheral Vascular Disease, Valvular Heart Disease Denies:: Cancer, Diabetes Mellitus Type 1, Diabetes Mellitus Type 2, Internal Pacemaker, MRSA, Seizures *Have you ever received a pneumonia vaccine?: Yes *Have you received a flu vaccine this season?: Yes Other 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: Reports: Arthritis, Other. Denies: Blood Transfusion Reaction Laterality Cases: Left: Arthroscopy Knee, Lumpectomy, Bilateral: Breast Biopsy, Carpal Tunnel Release Other Surgeries: Yes: Cancer Surgery, Cardiac Catheterization, Cholecystectomy, Colonoscopy, Coronary Stent, , Hernia Repair, Hysterectomy-Total, Hysterectomy-Partial, Ureter Stent, Other. No: Pacemaker Amputation: No Fractures: No - *Social History Smoking Status: Current every day smoker Tobacco Type: cigarettes # Packs/Day (cigarettes): 2 #Yrs smoked (if former smoker): 45 Alcohol Intake: former Alcohol Intake Frequency:: holidays/special occasions only Substance Use Type: painkillers *Occupational Status:: unemployed Housing: house Household Members: friend(s) *Travel in the last 8 weeks: None - Psychiatric History Pschychiatric History:: Reports:: Anxiety, Depression Family Hx:: No significant family history Meds Home Medications Medication Instructions Recorded Confirmed Type buprenorphine 8 mg-naloxone 2 mg 2 tab SL DAILY tab 03/22/21 06/29/22 History sublingual tablet Docusate Sodium 100 mg PO DAILYP PRN 03/04/22 06/29/22 History Aspirin [Low Dose Aspirin EC] 81 mg PO DAILY 04/30/22 06/29/22 History Calcium Carbonate/Vitamin D3 1 tab PO DAILY 04/30/22 06/29/22 History [Super Calcium 600-Vit D3 400] Clopidogrel Bisulfate [Plavix] 75 mg PO DAILY 04/30/22 06/29/22 History Omeprazole 40 mg PO DAILY 04/30/22 06/29/22 History bisoproloL fumarate [Bisoprolol 5 mg PO HS 04/30/22 06/29/22 History Fumarate] estradioL [Estradiol] 1 mg PO DAILY 04/30/22 06/29/22 History Nicotine [Nicoderm 21mg/24hr 21 mg TD DAILYP PRN #30 patch 05/11/22 06/29/22 Rx patch] Albuterol Sulfate [Albuterol 3 ml IH QIDP PRN 06/24/22 06/29/22 History Sulfate 0.63mg/3ml Neb] Albuterol Sulfate [Albuterol 2 puff PO Q6 06/24/22 06/29/22 History Sulfate Hfa] Alendronate Sodium [Fosamax 70mg 70 mg PO WEEKLY 06/24/22 06/29/22 History Tablet] Escitalopram Oxalate 20 mg PO DAILY 06/24/22 06/29/22 History Famotidine 40 mg PO DAILY 06/24/22
--- NOTE | 2022-06-29 08:56 | HMH.HPDC ---
General - General Admission date:: 06/29/22 Discharge date: 06/29/22 *Admission Date: 06/29/22 *Chief complaint: Shortness of air *History of present illness: This patient is a 56-year-old female with a history of COPD on 2 L nasal cannula at home and CAD status post stenting presenting to the emergency department for evaluation of chest pain, cough and shortness of breath. She reports that she was here earlier today for an antibiotic injection (Invanz) for pneumonia and noted to be wheezing, so she was into the emergency department, however she left because there was an hour wait. She was also recently discharged from the hospital after being admitted for COPD exacerbation and pneumonia. Since going home, she has still been smoking. She states that she has been using her medications and nebulizer treatments at home as prescribed, however she continues to wheeze and be short of air. States that 1 hour prior to arrival, she also developed left-sided chest pain that is dull and throbbing. It is nonradiating. Nothing makes it better or worse. She has had no fevers, chills, nausea, vomiting, abdominal pain, or other concerns. Of note, she is currently on Plavix. Denies any recent calf swelling, redness, or tenderness to palpation. She denies any history of blood clots clotting disorders. Of note, patient has missed one of her Invanz injection appointments, and has been scheduled for a CARMEN and has missed a couple of appointments with us. She has been placed on IV and Invanz because of history/high risk of substance abuse. She was admitted overnight for observation from the ER as noted above. [facility] History I have reviewed the patient's past medical history: Yes 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: Reports:: Anxiety, Carotid Stenosis, Congestive Heart Failure, Chronic Obstructive Pulmonary Disease (COPD), Coronary Artery Disease, Depression, Gastroesophageal Reflux Disease(GERD), Heart Murmur, Hepatitis, Hiatal Hernia, Hyperlipidemia, Hypertension, Lung Disease, Peripheral Artery Disease, Peripheral Vascular Disease, Valvular Heart Disease Denies:: Cancer, Diabetes Mellitus Type 1, Diabetes Mellitus Type 2, Internal Pacemaker, MRSA, Seizures *Have you ever received a pneumonia vaccine?: Yes *Have you received a flu vaccine this season?: Yes Other 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: Reports: Arthritis, Other. Denies: Blood Transfusion Reaction Laterality Cases: Left: Arthroscopy Knee, Lumpectomy, Bilateral: Breast Biopsy, Carpal Tunnel Release Other Surgeries: Yes: Cancer Surgery, Cardiac Catheterization, Cholecystectomy, Colonoscopy, Coronary Stent, , Hernia Repair, Hysterectomy-Total, Hysterectomy-Partial, Ureter Stent, Other. No: Pacemaker Amputation: No Fractures: No - *Social History Smoking Status: Current every day smoker Tobacco Type: cigarettes # Packs/Day (cigarettes): 2 #Yrs smoked (if former smoker): 45 Alcohol Intake: former Alcohol Intake Frequency:: holidays/special occasions only Substance Use Type: painkillers *Occupational Status:: unemployed Housing: house Household Members: friend(s) *Travel in the last 8 weeks: None - Psychiatric History Pschychiatric History:: Reports:: Anxiety, Depression Family Hx:: No significant family history Review of Systems - Review of Systems Review of systems:: pertinent systems reviewed and negative unless documented below Exam Vital signs and Labs for Last 24 Hours: Temp Pulse Resp BP Pulse Ox 97.9 F 103 H 18 158/94 H 96 06/29/22 08:00 06/29/22 08:00 06/29/22 08:00 06/29/22 08:00 06/29/22 08:00 Laboratory Results - last 24 hr 06/29/22 00:54: Urine Color Yellow, Urine Appearance Clear, Urine pH 7.0, Ur Specific [place] 1.015, Urine Protein Negative, Urine Glucose (UA) Negative, Urine Ketones Negative, Urine Blood Negative, Urine Nitrate Negative, Urine Bilirubin Negative, Urine Urobilinogen 0.2, Ur Leukocyte Esterase Trace, Urine RBC None, Urine WBC Occasional, Ur Squamous Epith Cells
--- NOTE | 2022-06-29 09:20 | PC.NURSE ---
educated patient that we were giving her her antibiotic before discharge, so would not need to go down to infusion. however, she needs to continue to come back up here to finish her complete antibiotic regimen.
--- NOTE | 2022-06-29 09:43 | PC.NURSE ---
Pt is finishing her IV abx
--- NOTE | 2022-06-29 09:44 | HMH.PHAINT ---
DISCHARGE MEDICATION COUNSELING PROVIDED. DISCUSSED THERE WERE NO NEW CHANGES AND THAT SHE IS SCHEDULED TO CONTINUE OUTPATIENT IV INVANZ IN OUTPATIENT INFUSION DAILY. PATIENT ENDORSED NO QUESTIONS AT THIS TIME.
--- NOTE | 2022-06-29 09:50 | HMH.PHAINT ---
HOME MEDICATION LIST VERIFIED USING LIST FROM LAST INPT VISIT (06/28/22)
--- NOTE | 2022-06-29 10:09 | PC.NURSE ---
Gave pt the inhaler, and piece that was in the omni to take home. I explained to pt that she has a rescheduled appt for CARMEN on next saturday and they will call her. I also explained that the pt doesn't need to come in today for outpatient abx. She does need to return tomorrow. She verbalized that she understood.
--- NOTE | 2022-06-29 10:48 | HMH.PULMCON ---
*Admission Date: 06/29/22 *Reason for consult:: Hospital-acquired pneumonia *History of present illness: Ms. Rush is a 56-year-old female history of COPD, greater than 85-mdic-ktge smoking history, multidrug-resistant pneumonia recently discharged from the hospital 2 days ago after being admitted for worsening respiratory status COPD exacerbation pneumonia, discharged on ertapenem intramuscular injections daily (given her history of IV drug abuse the plan was made to go with daily IM and IV medications) presented to the ER complaining of worsening respiratory distress and wheezing and was admitted for observation overnight and pulmonary was called. [facility] History 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: Reports:: Anxiety, Carotid Stenosis, Congestive Heart Failure, Chronic Obstructive Pulmonary Disease (COPD), Coronary Artery Disease, Depression, Gastroesophageal Reflux Disease(GERD), Heart Murmur, Hepatitis, Hiatal Hernia, Hyperlipidemia, Hypertension, Lung Disease, Peripheral Artery Disease, Peripheral Vascular Disease, Valvular Heart Disease Denies:: Cancer, Diabetes Mellitus Type 1, Diabetes Mellitus Type 2, Internal Pacemaker, MRSA, Seizures *Have you ever received a pneumonia vaccine?: Yes *Have you received a flu vaccine this season?: Yes Other 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: Reports: Arthritis, Other. Denies: Blood Transfusion Reaction Laterality Cases: Left: Arthroscopy Knee, Lumpectomy, Bilateral: Breast Biopsy, Carpal Tunnel Release Other Surgeries: Yes: Cancer Surgery, Cardiac Catheterization, Cholecystectomy, Colonoscopy, Coronary Stent, , Hernia Repair, Hysterectomy-Total, Hysterectomy-Partial, Ureter Stent, Other. No: Pacemaker Amputation: No Fractures: No - *Social History Smoking Status: Current every day smoker Tobacco Type: cigarettes # Packs/Day (cigarettes): 2 #Yrs smoked (if former smoker): 45 Alcohol Intake: former Alcohol Intake Frequency:: holidays/special occasions only Substance Use Type: painkillers *Occupational Status:: unemployed Housing: house Household Members: friend(s) *Travel in the last 8 weeks: None - Psychiatric History Pschychiatric History:: Reports:: Anxiety, Depression Family Hx:: No significant family history ROS - Cons Reports fatigue, Reports weakness, Denies fever(s) - Eyes Reports blurry vision - ENT Denies difficulty swallowing - Card Reports shortness of breath, Reports shortness of breath with activity - Resp Respiratory: Reports system reviewed and no additional complaints, except as docu, Reports chest congestion, Denies excessive phlegm production, Reports cough with sputum production, Reports wheezing - GI Gastrointestingal: Denies: abdominal pain - [place] Musculoskeletal: Reports back pain - Psych Denies thoughts of hurting/killing others, Denies thoughts of hurting/killing yourself Meds Home Medications Medication Instructions Recorded Confirmed Type buprenorphine 8 mg-naloxone 2 mg 2 tab SL DAILY tab 03/22/21 06/29/22 History sublingual tablet Docusate Sodium 100 mg PO DAILYP PRN 03/04/22 06/29/22 History Aspirin [Low Dose Aspirin EC] 81 mg PO DAILY 04/30/22 06/29/22 History Calcium Carbonate/Vitamin D3 1 tab PO DAILY 04/30/22 06/29/22 History [Super Calcium 600-Vit D3 400] Clopidogrel Bisulfate [Plavix] 75 mg PO DAILY 04/30/22 06/29/22 History Omeprazole 40 mg PO DAILY 04/30/22 06/29/22 History bisoproloL fumarate [Bisoprolol 5 mg PO HS 04/30/22 06/29/22 History Fumarate] estradioL [Estradiol] 1 mg PO DAILY 04/30/22 06/29/22 History Nicotine [Nicoderm 21mg/24hr 21 mg TD DAILYP PRN #30 patch 05/11/22 06/29/22 Rx patch] Albuterol Sulfate [Albuterol 3 ml IH QIDP PRN 06/24/22 06/29/22 History Sulfate 0.63mg/3ml Neb] Albuterol Sulfate [Albuterol 2 puff PO Q6 06/24/22 06/29/22 History Sulfate Hfa] Alendronate Sodium [Fosamax 70mg 70 mg PO WEEKLY 06/24/22 06/29/22 History Tablet] Escitalopram Oxalate 20 mg PO DAILY 06/24/22 06/29/22 History Famotidine 40 mg PO
== END 2022-06-29 10:09 | disposition home or self-care (01) ==
LOC: ER 06-29 01:38 → 2ND 06-29 04:18
PROVIDERS: Admitting Provider Family Medicine; Emergency Provider Emergency Medicine; PCP Emergency Medicine; Visit Provider Family Medicine
DX: J44.1 Chronic obstructive pulmonary disease with (acute) exacerbation (principal); F17.210 Nicotine dependence, cigarettes, uncomplicated; J15.6 Pneumonia due to other Gram-negative bacteria; I65.23 Occlusion and stenosis of bilateral carotid arteries; I11.0 Hypertensive heart disease with heart failure; I50.9 Heart failure, unspecified; K21.9 Gastro-esophageal reflux disease without esophagitis; I25.10 Atherosclerotic heart disease of native coronary artery without angina pectoris; Z95.5 Presence of coronary angioplasty implant and graft; E78.5 Hyperlipidemia, unspecified; Z79.01 Long term (current) use of anticoagulants; Z79.899 Other long term (current) drug therapy
CPT/HCPCS: 36415; 71046; 80048; 80076; 81001; 83605; 83880; 84484; 85007; 85025; 87040; 93005; 99285; C9803; G0378; J0574; J1335; U0003; U0005

== ENCOUNTER 2022-06-30 12:23 | Outpatient (CLI) | payer OTHER, SELFPAY ==
[2022-06-30 12:38] VITALS: BP 170/86; PULSE 103; RESP 18; TEMP 36.9; O2SAT 99
[2022-06-30 13:18] VITALS: BP 186/93; PULSE 100; RESP 18; TEMP 36.9; O2SAT 99
== END 2022-06-30 13:15 | disposition home or self-care (01) ==
LOC: INF 12:23
PROVIDERS: PCP Emergency Medicine; Visit Provider Emergency Medicine
DX: J15.6 Pneumonia due to other Gram-negative bacteria (principal)
CPT/HCPCS: 96372; J1335

== ENCOUNTER 2022-07-01 12:28 | Outpatient (CLI) | payer OTHER, SELFPAY ==
[2022-07-01 12:41] VITALS: BMI 22.8
== END 2022-07-01 12:48 | disposition home or self-care (01) ==
LOC: INF 12:28
PROVIDERS: PCP Emergency Medicine; Visit Provider Emergency Medicine
DX: J15.6 Pneumonia due to other Gram-negative bacteria (principal)
CPT/HCPCS: 96372; 96374; J1335

== ENCOUNTER 2022-07-02 11:21 | Outpatient (CLI) | payer OTHER, SELFPAY ==
[2022-07-02 11:47] VITALS: BP 126/74; PULSE 72; RESP 18; O2SAT 99
[2022-07-02 11:50] VITALS: BP 124/73; PULSE 76; RESP 18; O2SAT 99
--- NOTE | 2022-07-02 14:17 | CARE MANAGER ---
Spoke with patient for post-discharge interview, she states that she needs a cane, order was faxed to [facility] per patient choice. No further complaints at this time.
== END 2022-07-02 11:50 | disposition home or self-care (01) ==
LOC: INF 11:22
PROVIDERS: PCP Internal Medicine Pulmonary Disease; Visit Provider Emergency Medicine
DX: J15.6 Pneumonia due to other Gram-negative bacteria (principal)
CPT/HCPCS: 96372; J1335

== ENCOUNTER 2022-07-03 11:25 | Outpatient (CLI) | payer OTHER, SELFPAY ==
[2022-07-03 11:50] VITALS: BP 164/79; PULSE 96; RESP 20; TEMP 36.4; O2SAT 95
== END 2022-07-03 12:05 | disposition home or self-care (01) ==
LOC: INF 11:26
PROVIDERS: PCP Emergency Medicine; Visit Provider Emergency Medicine
DX: J15.6 Pneumonia due to other Gram-negative bacteria (principal)
CPT/HCPCS: 96372; J1335

== ENCOUNTER 2022-07-04 11:35 | Outpatient (CLI) | payer OTHER, SELFPAY ==
[2022-07-04 12:03] VITALS: BP 159/92; PULSE 122; RESP 22; TEMP 36.8; O2SAT 96
== END 2022-07-04 12:03 | disposition home or self-care (01) ==
LOC: INF 11:35
PROVIDERS: PCP Emergency Medicine; Visit Provider Emergency Medicine
DX: J15.6 Pneumonia due to other Gram-negative bacteria (principal)
CPT/HCPCS: 96372; J1335

== ENCOUNTER 2022-07-06 07:39 | Day surgery (SDC) | payer OTHER, SELFPAY ==
[2022-07-06] VITALS (9 sets, daily range): BP systolic 113–150; BP diastolic 64–102; PULSE 73–106; RESP 16–21; TEMP 36.6; O2SAT 91–99; BMI 23.9
--- NOTE | 2022-07-06 07:43 | CA_ITS ---
APPROVED REPORT EXAM: Comprehensive 2D, Doppler, and color-flow Echocardiogram Air Intelligence Officer: Anjelica Valenzuela RVT Ht: 5 ft 2 in Wt: 131lbs BSA: 1.60 BP: 136/77 mmHg Indications: SEVERE AI ASSESSMENT,CAD, CHF,MURMUR,SMOKER,HTN,HLD,HX IV DRUG USE Procedure After obtaining informed consent, patient underwent transesophageal echo in the [facility]. Type of Sedation : Conscious Sedation Sedation was administered by Tuan Gage C.R.N.A. Transesophageal probe was inserted and advanced into esophagus without difficulty by Dr. David Bhakta. The CARMEN was performed without complications. Throughout the procedure, the blood pressure, pulse oximetry, cardiac rhythm, and rate were monitored. The patient tolerated the procedure without adverse effects. Recovery from conscious sedation was uneventful and vital signs were stable. Left Ventricle Left ventricle is normal size mild concentric left ventricular hypertrophy, estimated ejection fraction 55% in the obtained views with no regional wall motion abnormality. Right Ventricle Right ventricle is mildly enlarged with normal contractility. Atria Left atrium is mildly enlarged, left atrial appendage free of thrombus, there is good appendage flow by spectral Doppler. Right atrium is mildly enlarged with normal contractility. Intra-atrial septum is intact, there is no flow across the interatrial septum, agitated saline contrast study did not identify intracardiac shunt. Aortic Valve Aortic valve is thickened and calcified without aortic stenosis, there is severe aortic insufficiency. Mitral Valve Mitral valve has mitral calcification, leaflets are minimally thickened, there is no mitral stenosis, there is mild mitral regurgitation. Tricuspid Valve Tricuspid valve grossly normal, there is mild tricuspid regurgitation. Pulmonic Valve Pulmonic valve is grossly normal. Great Vessels Aortic root and ascending aorta and descending aorta is normal size. Non mobilel atheromatous plaque seen in the descending thoracic aorta. Inferior vena cava is poorly visualized. Pericardium No significant pericardial effusion noted. Conclusion 1. Mild biatrial enlargement, normal left ventricular size mild concentric left ventricular hypertrophy, estimated ejection fraction 55% with no regional wall motion abnormality. 2. Thickened and calcified aortic valve without aortic stenosis, there is severe aortic insufficiency. 3. Other ancillary findings as described above. Electronically signed by : Vipin Chaparro MD 07/06/2022 13:06:16
[2022-07-06 08:00] LABS: Coronavirus 19, PCR Not Detected (NotDetected); Influenza A, PCR Not Detected (NotDetected); Influenza B, PCR Not Detected (NotDetected)
--- NOTE | 2022-07-06 08:55 | P.PN_ITS ---
[facility] Anesthesia Checklist - Patient Identification Patient Identification: Arm Band, Verbal (Name & ) - Structural Data Admitted From: Home Planned Operative Procedure/s: CARMEN Consent for Planned Operative Procedure(s) Verified: Yes Verified Documents: Surgical Consent - NPO Status Verified Time NPO: 00:00 - Additional verifications Anesthesia Reactions: No Hx Blood Transfusions: No Blood Transfusion Reaction: No - Airway Assessment C-Spine Mobility Assessed: Yes TMJ Mobility Assessed: Yes Dentition: Edentulous - Neurological Assessment Level of Consciousness: Awake, Alert, Appropriate - Anesthesia Plan Anesthesia Risk discussed: Yes ASA Class: III Anesthesia Type: MAC [facility] History I have reviewed the patient's past medical history: Yes 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: Reports:: Anxiety, Carotid Stenosis, Congestive Heart Failure, Chronic Obstructive Pulmonary Disease (COPD), Coronary Artery Disease, Depression, Gastroesophageal Reflux Disease(GERD), Heart Murmur, Hepatitis, Hiatal Hernia, Hyperlipidemia, Hypertension, Lung Disease, Peripheral Artery Disease, Peripheral Vascular Disease, Valvular Heart Disease Denies:: Cancer, Diabetes Mellitus Type 1, Diabetes Mellitus Type 2, Internal Pacemaker, MRSA, Seizures *Have you ever received a pneumonia vaccine?: Yes *Have you received a flu vaccine this season?: Yes Other 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: Reports: Arthritis, Other. Denies: Blood Transfusion Reaction Anesthesia experience/problems:: none Laterality Cases: Left: Arthroscopy Knee, Lumpectomy, Bilateral: Breast Biopsy, Carpal Tunnel Release Other Surgeries: Yes: Cancer Surgery, Cardiac Catheterization, Cholecystectomy, Colonoscopy, Coronary Stent, , Hernia Repair, Hysterectomy-Total, Hysterectomy-Partial, Ureter Stent, Other. No: Pacemaker Amputation: No Fractures: No - *Social History Smoking Status: Current every day smoker Tobacco Type: cigarettes # Packs/Day (cigarettes): 1 #Yrs smoked (if former smoker): 45 Alcohol Intake: never Alcohol Intake Frequency:: holidays/special occasions only Substance Use Type: painkillers *Occupational Status:: disabled Housing: house Household Members: friend(s) *Travel in the last 8 weeks: None - Psychiatric History Pschychiatric History:: Reports:: Anxiety, Depression Family Hx:: No significant family history
== END 2022-07-06 10:12 | disposition home or self-care (01) ==
PROVIDERS: PCP Emergency Medicine; Visit Provider Internal Medicine Cardiovascular Disease
DX: R07.9 Chest pain, unspecified (principal); F17.210 Nicotine dependence, cigarettes, uncomplicated; I70.1 Atherosclerosis of renal artery; I10 Essential (primary) hypertension; I25.10 Atherosclerotic heart disease of native coronary artery without angina pectoris; I35.1 Nonrheumatic aortic (valve) insufficiency; Z79.02 Long term (current) use of antithrombotics/antiplatelets; Z79.899 Other long term (current) drug therapy; Z20.822 Contact with and (suspected) exposure to COVID-19
CPT/HCPCS: 93312; 96372; C9803; J1335; U0003; U0005

== ENCOUNTER → 2022-07-20 11:20 | Outpatient (CLI) | payer OTHER, SELFPAY ==
[2022-07-20 15:40] LABS: Amphetamine/Metha Screen,Urine Negative ng/ml (<1000)
[2022-07-20 15:41] LABS: Barbiturates Screen,Urine Negative ng/ml (<200)
[2022-07-20 15:42] LABS: Benzodiazepines Screen,Urine Negative ng/ml (<200); Cannabinoid Screen,Urine Negative ng/ml (<50)
[2022-07-20 15:43] LABS: Cocaine Screen,Urine Negative ng/ml (<300)
[2022-07-20 15:46] LABS: Methadone Screen,Urine Negative ng/ml (<300)
[2022-07-20 15:47] LABS: Opiate Screen,Urine Negative ng/ml (<300); Phencyclidine Screen,Urine Negative ng/ml (<25)
== END ==
PROVIDERS: PCP Emergency Medicine; Visit Provider Emergency Medicine
DX: Z79.899 Other long term (current) drug therapy (principal)
CPT/HCPCS: 80305

== ENCOUNTER 2022-08-03 19:55 | Observation (INO) | payer OTHER, SELFPAY ==
[2022-08-03] VITALS (7 sets, daily range): BP systolic 125–163; BP diastolic 78–93; PULSE 89–109; RESP 16–24; TEMP 36.7; O2SAT 91–95; BMI 24.3; BMI 23.7
--- NOTE | 2022-08-03 20:12 | XR_ITS ---
PROCEDURE INFORMATION: Exam: XR Chest Exam date and time: 08/03/22 09:00 PM Age: 56 years old Clinical indication: Shortness of breath and other: Possible aspiration; Patient HX: PT got choked after eating mashed potatoes and corn; Additional info: Poss aspiration TECHNIQUE: Imaging protocol: Radiologic exam of the chest. Views: 2 views. COMPARISON: CR XR CHEST 2V 06/29/22 12:41 AM FINDINGS: Lungs: Right lower lobe pneumonia. Consider aspiration. Pleural spaces: Unremarkable. No pleural effusion. No pneumothorax. Heart/Mediastinum: Unremarkable. No cardiomegaly. Bones/joints: Unremarkable. IMPRESSION: Right lower lobe pneumonia. Consider aspiration.
[2022-08-03 20:14] LABS: ABG Base Excess -7.5 mmol/L (-2.4-2.3); ABG HCO3 19.5 mmhg (22.0-26.0); ABG Oxygen Saturation 92 % (90-100); ABG PCO2 44.5 mmhg (35.0-45.0); ABG PH 7.26 mmol/L (7.35-7.45); ABG PO2 68.3 mmhg (80-100); ABG TCO2 20.9 mmhg (23-27)
[2022-08-03 20:15] LABS: Allen's Test Acceptable; Oxygen 4LPM %; Source Right Radial
--- NOTE | 2022-08-03 20:28 | HMH.EDSOB ---
Discharge Plan Disposition Patient Disposition: Admitted As Inpatient Chief Complaint: Shortness of Breath/Dyspnea Clinical Impressions Clinical Impression: CAP (community acquired pneumonia), Tobacco abuse, COPD (chronic obstructive pulmonary disease), Severe aortic regurgitation, Diastolic dysfunction, SIRS (systemic inflammatory response syndrome) Discharge ED Provider: Chuck Pineda Resp/SOB HPI General Chief Complaint: Shortness of Breath/Dyspnea Stated Complaint: SOA Time Seen by Provider: 08/03/22 20:28 Mode of Arrival: EMS Source of Information: Patient, EMS and Medical Record Limitations: No Limitations Description of Symptoms (Recalled from ER Triage Doc. by RN): pt was picked up by ems after being unable to get her o2 up after choking on mashed potatos and corn 2 times this after noon the pt was reciving an albuterol traatment upon arrival to the hospital today audible wet lung sounds bilat pt A&O x4 History of Present Illness sob and cough with dec o2 tonight - MD Complaint: shortness of breath and cough Onset (ago): hour(s) Context: choking/aspiration Severity: moderate Consistency/Duration: intermittent Known history of: COPD and congestive heart failure Associated symptoms: denies other symptoms Treatment prior to arrival: oxygen and bronchodilator Related Data Home oxygen amount: 2 liters Home Medications Medication Instructions Recorded Confirmed buprenorphine 8 mg-naloxone 2 mg 2 tab sublingual DAILY drug abuse 03/22/21 07/20/22 sublingual tablet treatment docusate sodium 100 mg capsule 100 mg PO DAILYP PRN Constipation 03/04/22 07/20/22 aspirin 81 mg tablet,delayed 81 mg PO DAILY Heart disease 04/30/22 07/20/22 release clopidogrel 75 mg tablet 75 mg PO DAILY platelet inhibitor 04/30/22 07/20/22 albuterol sulfate 0.63 mg/3 mL 3 ml inhalation QIDP PRN Shortness 06/24/22 07/20/22 solution for nebulization Of Breath albuterol sulfate 90 mcg/actuation 2 puff PO Q6 ashtma 06/24/22 07/20/22 aerosol inhaler alendronate 70 mg tablet 70 mg PO WEEKLY osteoporosis 06/24/22 07/20/22 prevention famotidine 40 mg tablet 40 mg PO DAILY acid reflux 06/24/22 07/20/22 fluticasone fur. 100 mcg-umeclid 1 puff PO DAILY COPD 06/24/22 07/20/22 62.5 mcg-vilant 25 mcg inhalat.powder furosemide 20 mg tablet 20 mg PO DAILY Edema 06/24/22 07/20/22 megestrol 625 mg/5 mL (125 mg/mL) 625 mg PO DAILY PRN appetite 06/24/22 07/20/22 oral suspension rosuvastatin 5 mg tablet 5 mg PO DAILY Cholesterol 06/24/22 07/20/22 tizanidine 4 mg tablet 4 mg PO TIDP PRN muscle spasms 06/24/22 07/20/22 ibuprofen 800 mg tablet 800 mg PO ONCE PRN 07/16/22 07/20/22 ondansetron HCl 4 mg tablet 4 mg PO DAILY PRN 07/16/22 07/20/22 Previous Rx's Medication Instructions Recorded nicotine 21 mg/24 hr daily 21 mg transdermal DAILYP PRN 05/11/22 transdermal patch Nicotine Cravings #30 patches calcium carbonate 600 mg-vitamin See Rx Instructions .Route 07/16/22 D3 10 mcg (400 unit) tablet .COMPLEX #30 tabs estradiol 1 mg tablet See Rx Instructions .Route 07/16/22 .COMPLEX #30 tabs omeprazole 40 mg capsule,delayed See Rx Instructions .Route 07/16/22 release .COMPLEX #30 caps clonazepam 0.5 mg tablet 0.5 mg PO TID #90 tabs 07/20/22 gabapentin 800 mg tablet 800 mg PO TID #90 tabs 07/20/22 Allergies Allergy/AdvReac Type Severity Reaction Status Date / Time atorvastatin AdvReac Intermediate myalgia Verified 07/20/22 11:34 aspirin [ASPIRIN] AdvReac Unknown Verified 07/20/22 11:34 codeine [CODEINE] AdvReac Unknown Verified 07/20/22 11:34 propoxyphene [PROPOXYPHENE] AdvReac Unknown Verified 07/20/22 11:34 tramadol [TRAMADOL] AdvReac Unknown Verified 07/20/22 11:34 [facility] 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 (Updated 08/03/22 @ 22:44 by Chuck Pineda MD) Acute exacerbation of chronic obstructive airways disease Anxiety Back Pain CAD (coronary artery disease) Chronic headaches COPD (chronic obstructive pulmonary disease) Depression Fat
--- NOTE | 2022-08-03 20:32 | ECG_ITS ---
APPROVED REPORT Exam: Resting ECG HR:97 bpm ECG Measurements Heart Rate 97 AXES TX 133 P 66 QRSd 90 QRS 60 QT 335 T 73 QTc 390 Conclusion SINUS RHYTHM NORMAL ECG UNCONFIRMED REPORT Electronically signed by : Evaristo Gonzalez MD 08/04/2022 16:23:47
[2022-08-03 20:34] LABS: Basophils # 0.1 K/mm3 (0-0.2); Basophils % 0.4 % (0.1-2.0); Eosinophils # 0.1 K/mm3 (0.0-0.4); Eosinophils % 0.5 % (0.1-12.0); Hemoglobin 8.2 g/dL (12.2-16.2); Lymphocytes # 1.7 K/mm3 (0.7-4.5); Lymphocytes % 10.6 % (10-50); Mean Corpuscular Hemoglobin 25.3 pg (27.0-31.2); Mean Corpuscular Volume 84.1 fl (81-99); Mean Platelet Volume 8.2 fl (7.4-10.4); Monocytes # 0.7 K/mm3 (0.1-1.0); Monocytes % 4.3 % (1.7-9.3); Neutrophils # 13.4 K/mm3 (1.8-7.8); Neutrophils % 84.2 % (37.0-80.0); Platelet Count 398 K/mm3 (142-424); Red Blood Count 3.25 M/mm3 (4.20-5.40); Red Cell Distribution Width 19.5 % (11.5-17.5)
[2022-08-03 20:43] LABS: Alanine Aminotransferase 13 U/L (12-78); Albumin Level 3.2 g/dl (3.5-5.0); Albumin/Globulin Ratio 0.9 (1.1-1.8); Alkaline Phosphatase 83 U/L (38-126); Anion Gap 10.1 mEq/L (5-15); Aspartate Amino Transferase 30 U/L (14-36); Blood Urea Nitrogen 14 mg/dl (7-17); Calcium 8.5 mg/dl (8.4-10.2); Carbon Dioxide 22 mmol/L (22.0-30.0); Chloride 117 mmol/L (98-107); Creatinine Clearance Estimated 50 mL/min (50-200); Estimated Glomerular Filt Rate 47 ml/min (>60); GFR (African American) 56 ML/MIN (>60); Globulin 3.5 g/dL (1.3-3.2); Glucose 142 mg/dl (74-100); Hematocrit 27.3 % (37.0-47.0); Lactic Acid 1.2 mmol/L (0.7-2.1); Potassium 4.1 mmoL/L (3.5-5.1); Sodium 145 mmol/L (136-145); Total Protein,Serum 6.7 g/dl (6.3-8.2)
[2022-08-03 20:45] LABS: MANUAL DIFFERENTIAL MANUAL DIFFERENTIAL (MANUAL DIFF)
[2022-08-03 20:47] LABS: Bilirubin,Total < 0.1 mg/dl (0.2-1.3)
[2022-08-03 20:48] LABS: C-Reactive Protein 27.8 mg/L (0-4)
[2022-08-03 21:02] LABS: Procalcitonin 0.112 ng/mL (0.0-2.0)
[2022-08-03 21:08] LABS: Anisocytosis 3+; Hypersegmented Neutrophils 3+; Hypochromasia 2+; Lymphocytes % 10 % (10-50); Microcytosis 1+; Monocytes % 2 % (2-9); Neutrophils % 86 % (42-76); Platelet Estimate Normal; Rouleaux 2+; Total Cells Counted 100
[2022-08-03 21:11] LABS: Troponin I < 0.01 ng/ml (0.00-0.034)
[2022-08-03 21:19] LABS: Erythrocyte Sedimentation Rate > 140 mm/hr (0-30)
[2022-08-03 22:09] LABS: Coronavirus 19, PCR Not Detected (NotDetected); Influenza A, PCR Not Detected (NotDetected); Influenza B, PCR Not Detected (NotDetected)
--- NOTE | 2022-08-03 23:09 | PC.NURSE ---
Patient admitted to [facility] with CAP, Copd with exacerbation to service of Dr. Pineda
[2022-08-04] VITALS (11 sets, daily range): BP systolic 133–186; BP diastolic 72–94; PULSE 74–113; RESP 12–20; TEMP 36.5–37.1; O2SAT 15–98; BMI 23.9
[2022-08-04 00:20] LABS: Troponin I < 0.01 ng/ml (0.00-0.034)
[2022-08-04 03:37] LABS: Troponin I < 0.01 ng/ml (0.00-0.034)
[2022-08-04 03:51] LABS: Microscopic, Urine URINE MICROSCOPIC (MICROSCOPIC)
[2022-08-04 03:55] LABS: Appearance,Urine CLEAR (Clear); Bilirubin,Urine Negative (Negative); Blood, Urine Negative (Negative); Color,Urine YELLOW (Yellow); Glucose,Urine (UA) Negative (Negative); Ketones,Urine Negative (Negative); Leukocyte Esterase,Urine Negative (Negative); Nitrate,Urine Negative (Negative); Protein,Urine Negative (Negative); Specific Gravity, Urine 1.015 (1.005-1.030); Urobilinogen,Urine 0.2 EU/dl (0.2)
--- NOTE | 2022-08-04 04:09 | PC.NURSE ---
RN aware of elevated BP @ this time.
--- NOTE | 2022-08-04 05:53 | PC.NURSE ---
Pt A&O x4. Has slept at intervals this shift. Has been up to BSC. Urine specimen obtained. Sputum also obtained this AM. Lungs noted to have rhonchi and audible wheezing t/o. Pt O2 titrated from 4L O2 NC to 3L. BP is elevated. Other VSS. Call light within reach. Safety measures in place.
[2022-08-04 08:45] LABS: Basophils % 0.1 % (0.1-2.0); Eosinophils % 0.1 % (0.1-12.0); Hematocrit 28.2 % (37.0-47.0); Hemoglobin 8.4 g/dL (12.2-16.2); Lymphocytes # 0.8 K/mm3 (0.7-4.5); Lymphocytes % 4.8 % (10-50); Mean Corpuscular HGB Conc 29.7 g/dL (31.8-35.4); Mean Platelet Volume 8.4 fl (7.4-10.4); Monocytes # 0.3 K/mm3 (0.1-1.0); Monocytes % 1.7 % (1.7-9.3); Neutrophils # 16.4 K/mm3 (1.8-7.8); Neutrophils % 93.3 % (37.0-80.0); Platelet Count 377 K/mm3 (142-424); Red Blood Count 3.35 M/mm3 (4.20-5.40); Red Cell Distribution Width 19.7 % (11.5-17.5); White Blood Count 17.6 K/mm3 (4.8-10.8)
[2022-08-04 08:48] LABS: Chloride 115 mmol/L (98-107); Potassium 4.3 mmoL/L (3.5-5.1); Sodium 147 mmol/L (136-145)
[2022-08-04 08:50] LABS: MANUAL DIFFERENTIAL MANUAL DIFFERENTIAL (MANUAL DIFF)
[2022-08-04 08:51] LABS: Blood Urea Nitrogen 13 mg/dl (7-17); Creatinine Clearance Estimated 54 mL/min (50-200); Estimated Glomerular Filt Rate 52 ml/min (>60); GFR (African American) 62 ML/MIN (>60)
[2022-08-04 08:52] LABS: Anion Gap 15.3 mEq/L (5-15); Carbon Dioxide 21 mmol/L (22.0-30.0)
[2022-08-04 08:58] LABS: Calcium 8.7 mg/dl (8.4-10.2); Glucose 163 mg/dl (74-100)
[2022-08-04 09:18] LABS: Anisocytosis 1+; Hypochromasia 1+; Lymphocytes % 2 % (10-50); Monocytes % 3 % (2-9); Neutrophils % 95 % (42-76); Ovalocytes 1+; Platelet Estimate Normal; Total Cells Counted 100
--- NOTE | 2022-08-04 10:47 | HMH.PHAINT1 ---
Pharmacy Intervention Comments: MEDICATION RECONCILIATION COMPLETE USING EXTERNAL PHARMACY FILL HISTORY, TOMMY REPORT, MOST RECENT MD OFFICE VISIT AND RECENT HOSPITAL DISCHARGE LISTS.
--- NOTE | 2022-08-04 10:48 | P.CONPHA_ITS ---
[facility] Pharmacy VTE Monitoring Patient Demographics Admission date: 08/04/22 Report Date: 08/04/22 Time: 10:48 Patient Allergies atorvastatin Adverse Reaction (Intermediate, Verified 07/20/22 11:34) myalgia aspirin [ASPIRIN] Adverse Reaction (Unknown, Verified 07/20/22 11:34) codeine [CODEINE] Adverse Reaction (Unknown, Verified 07/20/22 11:34) propoxyphene [PROPOXYPHENE] Adverse Reaction (Unknown, Verified 07/20/22 11:34) tramadol [TRAMADOL] Adverse Reaction (Unknown, Verified 07/20/22 11:34) Height: 1.57 m Weight: 59.024 kg Current Active Problems (Updated 08/03/22 @ 22:44 by Chuck Pineda MD) CAP (community acquired pneumonia) (Acute) Diastolic dysfunction (Acute) SIRS (systemic inflammatory response syndrome) (Acute) COPD (chronic obstructive pulmonary disease) (Acute) Severe aortic regurgitation (Acute) Tobacco abuse (Chronic) VTE Risk Labs: VTE Related Lab Results Hgb 8.4 g/dL (12.2-16.2) L 08/04/22 08:15 Hct 28.2 % (37.0-47.0) L 08/04/22 08:15 Plt Count 377 K/mm3 (142-424) 08/04/22 08:15 BUN 13 mg/dl (7-17) 08/04/22 08:15 Creatinine 1.10 mg/dl (0.52-1.04) H 08/04/22 08:15 Estimated Creat Clear 54 mL/min (50-200) 08/04/22 08:15 Was VTE Risk Assessment Performed: No Clinical Trial Participant: No Prophylaxis VTE Prophylaxis Ordered?: Yes Types of VTE Prophylaxis: TEDS Knee High Location of Applied Device: Refused
--- NOTE | 2022-08-04 14:34 | EXP.HP ---
History of Present Illness *Admission Date: 08/04/22 *Reason for visit:: pneumonia *History of present illness: 56 yo female with chronic lung disease presents to ER with cough,congestion, weakness, and RLL pneumonia. Somnolent at time of exam. Recent CARMEN is reviewed. [facility] 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 Acute exacerbation of chronic obstructive airways disease Anxiety Back Pain CAD (coronary artery disease) Chronic headaches COPD (chronic obstructive pulmonary disease) Depression Fatigue HCV (hepatitis C virus) Insomnia Osteoporosis Pneumonia due to other gram-negative bacteria TOMY (renal artery stenosis) Severe aortic regurgitation Tobacco abuse Surgical History History of arthroscopic knee surgery History of breast biopsy History of cancer surgery History of cardiac cath History of carpal tunnel release History of section History of colonoscopy History of coronary artery stent placement History of hernia repair History of hysterectomy History of ureter stent Hx of cholecystectomy Family History (Updated 08/04/22 @ 00:46 by Roz Hill, RN) Other Family history of COPD (chronic obstructive pulmonary disease) Family history of anemia Family history of hyperlipidemia Social History (Updated 08/04/22 @ 00:48 by Roz Hill, RN) Smoking Status: Current every day smoker tobacco type: cigarettes packs per day: 1 second hand exposure: No alcohol intake: never substance use type: painkillers current occupational status: disabled Travel in the last 8 weeks: None household members: friend(s) housing: house current occupational exposures/hazards: No caffeine: Yes Review of Systems Review of Systems Review of systems:: unable to obtain Meds Home Medications and Allergies Home Medications Medication Instructions Recorded Confirmed Type buprenorphine 8 mg-naloxone 2 mg 2 tab sublingual DAILY drug abuse 03/22/21 08/04/22 History sublingual tablet treatment docusate sodium 100 mg capsule 100 mg PO DAILYP PRN Constipation 03/04/22 08/04/22 History aspirin 81 mg tablet,delayed 81 mg PO DAILY Heart disease 04/30/22 08/04/22 History release clopidogrel 75 mg tablet 75 mg PO DAILY platelet inhibitor 04/30/22 08/04/22 History nicotine 21 mg/24 hr daily 21 mg transdermal DAILYP PRN 05/11/22 08/04/22 Rx transdermal patch Nicotine Cravings #30 patches albuterol sulfate 0.63 mg/3 mL 3 ml inhalation QIDP PRN Shortness 06/24/22 08/04/22 History solution for nebulization Of Breath albuterol sulfate 90 mcg/actuation 2 puff PO Q6H Asthma 06/24/22 08/04/22 History aerosol inhaler alendronate 70 mg tablet 70 mg PO WEEKLY osteoporosis 06/24/22 08/04/22 History prevention famotidine 40 mg tablet 40 mg PO DAILY acid reflux 06/24/22 08/04/22 History furosemide 20 mg tablet 20 mg PO DAILY Edema 06/24/22 08/04/22 History megestrol 625 mg/5 mL (125 mg/mL) 625 mg PO DAILYP PRN appetite 06/24/22 08/04/22 History oral suspension rosuvastatin 5 mg tablet 5 mg PO DAILY Cholesterol 06/24/22 08/04/22 History tizanidine 4 mg tablet 4 mg PO TIDP PRN muscle spasms 06/24/22 08/04/22 History ibuprofen 800 mg tablet 800 mg PO BIDP PRN MILD TO 07/16/22 08/04/22 History MODERATE PAIN ondansetron HCl 4 mg tablet 4 mg PO TIDP PRN Nausea 07/16/22 08/04/22 History bisoprolol fumarate 5 mg tablet 5 mg PO DAILY High blood pressure 08/04/22 08/04/22 History bupropion HCl 75 mg tablet 75 mg PO BID Depression 08/04/22 08/04/22 History calcium carbonate 600 mg-vitamin 400 tab PO DAILY Supplement 08/04/22 08/04/22 History D3 10 mcg (400 unit) tablet clonazepam 0.5 mg tablet 0.5 mg PO TID Anxiety 08/04/22 08/04/22 History escitalopram oxalate 20 mg tablet 20 mg PO DAILY Depression 08/04/22 08/04/22 History estradiol 1 mg tablet 1 mg PO DAILY HORMONE REPLACEMENT 08/04/22 08/04/22 History fluticasone fur. 100 mcg-um
--- NOTE | 2022-08-04 18:02 | PC.NURSE ---
Dr. Valentin paged to ask to reorder patient home medications. Soboxone and clonazepam reordered as well as bisoprolol. Patient slept for most of shift but easily arousable. Patient stated she did not sleep during the night and nightshift nurse commented that patient had been awake all night. VS stable. Patient weaned to room air by respiratory but when asleep oxygen increased back to patient home oxygen 3LNC as patient desatted to 87%. Lung sounds exhibit expiratory rhonchi and audible wheezing throughout. Patient asked for gabapentin but no orders. Paged Dr. Valentin and Dr. Valentin stated he wanted to wait until tomorrow as patient was lethargic during his assessment. Patient notified of doctors decision. No other complaints noted.
[2022-08-05] VITALS (14 sets, daily range): BP systolic 137–174; BP diastolic 72–90; PULSE 80–94; RESP 19–22; TEMP 36.6–36.9; O2SAT 94–100; BMI 24.3
--- NOTE | 2022-08-05 04:37 | PC.NURSE ---
pt has rested intermittently t/o shift, frequently up to BSC, bed alarm on for safety, currently on 2L NC with O2 sats 94-95%, wheezing noted on auscultation, no complaints of pain or SOA, telemetry strips have shown NSR
--- NOTE | 2022-08-05 06:00 | XR_ITS ---
PROCEDURE INFORMATION: Exam: XR Chest Exam date and time: 08/05/2022 5:38 AM Age: 56 years old Clinical indication: Shortness of breath and other: Pneumonia; Additional info: Pna SOB TECHNIQUE: Imaging protocol: Radiologic exam of the chest. Views: 1 view. COMPARISON: CR XR CHEST 2V 08/03/2022 9:00 PM FINDINGS: Lungs: Hyperinflation, interstitial prominence, and mildly improved airspace disease. Pleural spaces: No pleural effusion. Heart/Mediastinum: No cardiomegaly. Bones/joints: Unremarkable. IMPRESSION: Hyperinflation, interstitial prominence, and mildly improved airspace disease.
--- NOTE | 2022-08-05 07:56 | PC.NURSE ---
Ambulated patient to bedside commode and then back to bed. Bed alarms are on and call light within reach of patient.
[2022-08-05 13:35] LABS: Basophils % 0.1 % (0.1-2.0); Eosinophils # 0.1 K/mm3 (0.0-0.4); Eosinophils % 0.4 % (0.1-12.0); Hematocrit 28.8 % (37.0-47.0); Hemoglobin 8.3 g/dL (12.2-16.2); Lymphocytes # 0.7 K/mm3 (0.7-4.5); Mean Corpuscular HGB Conc 28.9 g/dL (31.8-35.4); Mean Corpuscular Hemoglobin 24.5 pg (27.0-31.2); Mean Corpuscular Volume 84.6 fl (81-99); Mean Platelet Volume 8.5 fl (7.4-10.4); Monocytes # 0.3 K/mm3 (0.1-1.0); Monocytes % 2.4 % (1.7-9.3); Neutrophils % 92.2 % (37.0-80.0); Platelet Count 406 K/mm3 (142-424); Red Cell Distribution Width 19.9 % (11.5-17.5)
--- NOTE | 2022-08-05 13:35 | EXP.PN ---
Subjective *Date: 08/05/22 *Time: 13:35 Interval history: still sounds very coarse scattered rhonchi/wheezes purulent sputum xray suggests hyperinflation with some modest improvement in infilt process Exam Data for Last 24 hours Vital signs and Labs for Last 24 Hours: Temp Pulse Resp BP Pulse Ox FiO2 98.2 F 89 20 156/73 H 96 32 08/05/22 12:28 08/05/22 12:28 08/05/22 07:56 08/05/22 12:28 08/05/22 12:28 08/04/22 18:30 I & O for Last 24 hours: Intake & Output 08/02/22 08/03/22 08/04/22 08/05/22 23:59 23:59 23:59 23:59 Intake Total 1610 / 1610 639 / 639 Output Total 1150 / 1400 850 / 850 Balance 460 / 210 -211 / -211 Weight 129 lb 1 oz 130 lb 2 oz 132 lb 7 oz Microbiology Reports for the Last 24 Hours: Microbiology 08/04/22 03:20 Sputum - Expectorated Sputum Gram Stain - Final 08/04/22 03:20 Sputum - Expectorated Sputum Sputum Culture - Preliminary Constitutional Constitutional: no acute distress and chronically ill appearing *Routine HEENT Exam Head: Present normocephalic Eye: Present EOMI ENT: Present mucous membranes moist *Routine Neck Exam Neck: Present supple *Routine Respiratory Exam Respiratory: Present rhonchi, wheezes, crackles, distant breath sounds, normal respiratory effort, able to speak in complete sentences and symmetric chest movement; Absent accessory muscle use or respiratory distress *Routine Cardiovascular Exam Cardiovascular: Present RRR *Routine Abdominal Exam Abdominal: Present soft *Routine Extremities Exam Extremities: Absent cyanosis *Routine Skin Exam Skin: Absent jaundice *Routine Neurological Exam Neurological: Present alert and oriented X3 Assessment and Plan *Assessment and plan (1) CAP (community acquired pneumonia): Status: Acute Category: Medical Code(s): J18.9 - Pneumonia, unspecified organism (2) COPD exacerbation: Status: Acute Category: Medical Code(s): J44.1 - Chronic obstructive pulmonary disease with (acute) exacerbation (3) Tobacco use: Status: Acute Category: Social Hx Code(s): Z72.0 - Tobacco use (4) COPD (chronic obstructive pulmonary disease): Status: Acute Category: Medical Code(s): J44.9 - Chronic obstructive pulmonary disease, unspecified (5) Back Pain: Status: Chronic Qualifiers: Back pain location: low back pain Chronicity: chronic Back pain laterality: bilateral Sciatica presence: without sciatica Qualified Code(s): M54.5 - Low back pain; G89.29 - Other chronic pain Category: Medical Code(s): M54.9 - Dorsalgia, unspecified (6) Dyspnea: Status: Chronic Qualifiers: Dyspnea type: dyspnea on exertion Qualified Code(s): R06.09 - Other forms of dyspnea Category: Medical Code(s): R06.00 - Dyspnea, unspecified Plan continue iv regimen, supplemental 02, and steroids
[2022-08-05 13:48] LABS: MANUAL DIFFERENTIAL MANUAL DIFFERENTIAL (MANUAL DIFF)
[2022-08-05 14:01] LABS: Alanine Aminotransferase 16 U/L (12-78); Albumin Level 3.2 g/dl (3.5-5.0); Albumin/Globulin Ratio 0.9 (1.1-1.8); Alkaline Phosphatase 73 U/L (38-126); Anion Gap 12.9 mEq/L (5-15); Aspartate Amino Transferase 27 U/L (14-36); Blood Urea Nitrogen 17 mg/dl (7-17); Calcium 8.3 mg/dl (8.4-10.2); Carbon Dioxide 20 mmol/L (22.0-30.0); Chloride 115 mmol/L (98-107); Creatinine Clearance Estimated 46 mL/min (50-200); Estimated Glomerular Filt Rate 43 ml/min (>60); GFR (African American) 51 ML/MIN (>60); Globulin 3.4 g/dL (1.3-3.2); Glucose 183 mg/dl (74-100); Potassium 3.9 mmoL/L (3.5-5.1); Sodium 144 mmol/L (136-145); Total Protein,Serum 6.6 g/dl (6.3-8.2)
[2022-08-05 14:02] LABS: Bilirubin,Total < 0.1 mg/dl (0.2-1.3)
[2022-08-05 14:37] LABS: Anisocytosis 2+; Hypochromasia 2+; Lymphocytes % 4 % (10-50); Macrocytosis 2+; Monocytes % 1 % (2-9); Neutrophils % 95 % (42-76); Platelet Estimate Normal; Total Cells Counted 100
[2022-08-05 14:38] LABS: Ovalocytes 1+
--- NOTE | 2022-08-05 20:38 | PC.NURSE ---
Pt is A/Ox4. She has been on 4L NC and tolerated all day. She is on 3L NC at home. She has been going from the chair to the bedside commode all day. She has been a little anxious today and was given PRN clonzepam. She had a BM today in the BSC.
[2022-08-06] VITALS (11 sets, daily range): BP systolic 141–164; BP diastolic 66–87; PULSE 68–91; RESP 19–21; TEMP 36.6–36.8; O2SAT 95–99; BMI 24.3
--- NOTE | 2022-08-06 07:05 | PC.NURSE ---
Pt titrated down to 3 L nc successfully with sats >95%. Pt able to ambulate to BR w/o becoming SOA. Pt has not voiced any c/o to staff. Bed alarm Call light within reach.
--- NOTE | 2022-08-06 12:35 | PC.NURSE ---
Addendum entered by Cristal Reveles RN 08/06/22 14:14: MD Valentin has decided to keep this pt overnight. MD is fine w/ pt switching over to PO abx and steroids and is fine w/ pt not having any IV access. Original Note: Made MD Valentin aware of pt refusing to be stuck for any further PIV, ultrasound guided or otherwise. MD Valentin ok with this, pt may potentially be discharged at some point today.
--- NOTE | 2022-08-06 13:12 | XR_ITS ---
PROCEDURE INFORMATION: Exam: XR Chest Exam date and time: 08/06/2022 3:47 PM Age: 56 years old Clinical indication: Shortness of breath; Additional info: Pna TECHNIQUE: Imaging protocol: Radiologic exam of the chest. Views: 1 view. Portable AP exam 3:50 p.m. COMPARISON: CR XR CHEST PORTABLE 08/05/2022 5:38 AM FINDINGS: Tubes, catheters and devices: Overlying research engineer electrodes. Lungs: Borderline pulmonary hyperinflation. Persistent subsegmental atelectasis and mild interstitial prominence at the lung bases compared with the prior exam. No focal consolidation. A small focus of airspace disease projected over the upper-lateral left chest on the prior exam is not as well seen today, partially obscured by an overlying research engineer electrode. Pulmonary vessels do not appear significantly congested. Pleural spaces: Minimal chronic apical pleural thickening. No pleural effusion. No pneumothorax. Heart/Mediastinum: The cardiac silhouette is normal. Bones/joints: There is no evidence of acute fracture. Inferior acromial spurring greater on the left. IMPRESSION: 1. No significant interval change compared with 08/05/2022. 2. Slight pulmonary hyperinflation, lower pulmonary interstitial prominence. No focal consolidation.
--- NOTE | 2022-08-06 13:15 | EXP.PN ---
Subjective *Date: 08/06/22 *Time: 13:15 Interval history: lethargic on awakening still with cough and coarse crackles/rhonchi throughout Exam Data for Last 24 hours Vital signs and Labs for Last 24 Hours: Temp Pulse Resp BP Pulse Ox FiO2 98.2 F 73 20 146/87 H 96 36 08/06/22 12:00 08/06/22 12:27 08/06/22 12:00 08/06/22 12:00 08/06/22 12:27 08/05/22 18:14 Laboratory Results - last 24 hr 08/05/22 13:30: WBC 13.0 H D, RBC 3.40 L, Hgb 8.3 L, Hct 28.8 L, MCV 84.6, MCH 24.5 L, MCHC 28.9 L, RDW 19.9 H, Plt Count 406, MPV 8.5, Neut % (Auto) 92.2 H, Lymph % (Auto) 5.0 L, [place] % (Auto) 2.4, Eos % (Auto) 0.4, Baso % (Auto) 0.1, Neut # (Auto) 12.0 H, Lymph # (Auto) 0.7, [place] # (Auto) 0.3, Eos # (Auto) 0.1, Baso # (Auto) 0.0, Total Counted 100, Neutrophils % (Manual) 95 H, Lymphocytes % (Manual) 4 L, Monocytes % (Manual) 1 L, Platelet Estimate Normal, Hypochromasia 2+, Anisocytosis 2+, Macrocytosis 2+, Ovalocytes 1+ 08/05/22 13:30: Sodium 144, Potassium 3.9, Chloride 115 H, Carbon Dioxide 20 L, Anion Gap 12.9, BUN 17 D, Creatinine 1.30 H, Estimated Creat Clear 46, Estimated GFR 43 L, Est GFR ( Amer) 51 L, Glucose 183 H, Calcium 8.3 L, Total Bilirubin < 0.1 L, AST 27, ALT 16, Alkaline Phosphatase 73, Total Protein 6.6, Albumin 3.2 L, Globulin 3.4 H, Albumin/Globulin Ratio 0.9 L I & O for Last 24 hours: Intake & Output 08/03/22 08/04/22 08/05/22 08/06/22 23:59 23:59 23:59 23:59 Intake Total 1610 / 1610 879 / 1360 721 / 721 Output Total 1150 / 1400 1250 / 1250 1400 / 1400 Balance 460 / 210 -371 / 110 -679 / -679 Weight 129 lb 1 oz 130 lb 2 oz 132 lb 7 oz 132 lb 4.438 oz Microbiology Reports for the Last 24 Hours: Microbiology 08/04/22 03:20 Sputum - Expectorated Sputum Gram Stain - Final 08/04/22 03:20 Sputum - Expectorated Sputum Sputum Culture - Final Normal Respiratory Ilene 08/03/22 20:00 Blood Blood Culture - Preliminary NO GROWTH AFTER 48 HOURS 08/03/22 20:00 Blood Blood Culture - Preliminary NO GROWTH AFTER 48 HOURS Constitutional Constitutional: no acute distress and chronically ill appearing *Routine HEENT Exam Head: Present normocephalic ENT: Present mucous membranes moist *Routine Neck Exam Neck: Present supple *Routine Respiratory Exam Respiratory: Present rhonchi, crackles and distant breath sounds; Absent accessory muscle use or respiratory distress *Routine Cardiovascular Exam Cardiovascular: Present RRR *Routine Abdominal Exam Abdominal: Present soft *Routine Skin Exam Skin: Absent jaundice *Routine Neurological Exam Neurological: Present alert Assessment and Plan *Assessment and plan (1) CAP (community acquired pneumonia): Status: Acute Category: Medical Code(s): J18.9 - Pneumonia, unspecified organism (2) COPD exacerbation: Status: Acute Category: Medical Code(s): J44.1 - Chronic obstructive pulmonary disease with (acute) exacerbation Plan will delineate infiltrative process with cxr continue iv abx/steroids
--- NOTE | 2022-08-06 18:37 | PC.NURSE ---
Pt has been very lethargic this shift. Pt has requested PRN klonopin and pain meds multiple times this shift. Audible wheezes noted when you enter pt's room. Inspiratory and expiratory wheezes noted w/ scattered rhonchi t/o all lung brown. Pt is eager to go home tomorrow. No other acute changes.
[2022-08-07] VITALS (12 sets, daily range): BP systolic 138–181; BP diastolic 64–91; PULSE 66–100; RESP 17–21; TEMP 36.6–37.2; O2SAT 89–98
--- NOTE | 2022-08-07 04:54 | PC.NURSE ---
no acute change since previous assessment. pt has been up to chair most of shift. ambulating to and from bathroom with standby assistance. CB in reach.
--- NOTE | 2022-08-07 08:36 | EXP.ACUTE.PN ---
Subjective *Date: 08/07/22 *Time: 20:13 Interval history: pt with still o2 and has fatigue but feels better - has pul consult and swallowing eval pending Medical Exam Vital signs and Labs for Last 24 Hours: Temp Pulse Resp BP Pulse Ox FiO2 98.0 F 97 H 18 155/91 H 94 L 36 08/07/22 08:00 08/07/22 08:00 08/07/22 08:00 08/07/22 08:00 08/07/22 08:00 08/05/22 18:14 I & O for Labs for Last 24 Hours: Intake & Output 08/04/22 08/05/22 08/06/22 08/07/22 11:59 11:59 11:59 11:59 Intake Total 240 / 240 2008 961 / 961 120 / 120 Output Total 600 / 600 1400 / 1400 1800 / 1800 600 / 600 Balance -360 / -360 609 / 609 -839 / -839 -480 / -480 Weight 130 lb 2 oz 132 lb 7 oz 132 lb 4.438 oz Microbiology Reports for the Last 24 Hours: Microbiology 08/04/22 03:20 Sputum - Expectorated Sputum Gram Stain - Final 08/04/22 03:20 Sputum - Expectorated Sputum Sputum Culture - Final Normal Respiratory Ilene Head: atraumatic Eyes: as per HPI ENT: mucous membranes moist Neck: trachea midline Respiratory: decreased breath sounds, wheezes and distant breath sounds Cardiac: Reg Rate and Rhythm and Systolic Murmur GI: soft Rectal (female): deferred (female): deferred Extremities: calf tenderness Skin: cyanosis Neuro: Cranial Nerve 2-12 Intact Assessment and Plan *Assessment and plan (1) CAP (community acquired pneumonia): Status: Acute Category: Medical Code(s): J18.9 - Pneumonia, unspecified organism (2) Acute exacerbation of chronic obstructive airways disease: Status: Acute Category: Medical Code(s): J44.1 - Chronic obstructive pulmonary disease with (acute) exacerbation Assessment and plan all Dx Assessment and Plan All Dx:: pul consult and swallowing eval
--- NOTE | 2022-08-07 09:12 | HMH.SLDYSPHA ---
Speech & Language Evaluation Speech/Language Dysphagia Evaluation Start: 08/07/22 08:58 Freq: ONCE Status: Active Protocol: Document 08/07/22 08:58 SUSHIL (Rec: 08/07/22 09:11 [id number] Dysphagia Assess/Goals/Plan Assessment Date of Evaluation: 08/07/22 Evaluation Type Initial Certification Assessment/Problems Pt assessed using clinical bedside swallow evaluation per MD order. Does Patient Qualify for Service Yes Qualify/Failure Comment Pt does not qualify for services 2' to no overt s/sxs of aspiration during clinical bedside swallow evaluation. Recommendations PHYSICIAN CERTIFICATION: The specified therapy services are required, authorized, and reviewed every 30 days. Diet Recommendations [facility]. soft/chopped Liquid Type Recommendations Normal/Thin SL Swallow Guidelines Alt bite w/sip thru meal,Eat at slow rate Dysphagia Swallow Precautions/Strategies Sitting Upright (90 deg),No Straw,Small Bites and Sips, Alternate Liquids/Solids Plan Pt/Guardian verbally ack understanding Yes of dx/prognosis/goals G -code Required No Education Instructions provided Discussed evaluation results with patient, nurse, and care management who expressed understanding. Pt/Caregiver able to recall information Able to recall/restate Reinforcement needed No Speech & Language HPI History Present Illness Description of Patient Problem Pt admitted to [facility] following transport by EMS. Reported shortness of breath and choking on mashed potatoes/ corn. PMH includes: anxiety, CAD (coronary artery disease), Chronic headaches, COPD ( chronic obstructive pulmonary disease), Depression, HCV ( hepatitis C virus), Osteoporosis, pneumonia due to other gram-negative bacteria, TOMY (renal artery stenosis), Severe aortic regurgitation, and Tobacco abuse (1 pack/day. ) Pt/Caregiver Concerns MD reports concerns for choking. Pt reported difficulty eating meats/breads 2' to dentition and reported
--- NOTE | 2022-08-07 10:37 | EXP.PULM.CON ---
History of Present Illness History of present illness: Ms. Rush is a 56-year-old female current smoker greater than [id number] smoking history, bronchiectasis, recurrent COPD exacerbations, prior history of MDR Klebsiella pneumonia status post ertapenem x10 days presented to the hospital with a short an episode of choking followed by shortness of breath that eventually resolved after increasing her oxygen requirements. Shortness of breath along with recent worsening for the last 4 days. Worsened with exertion relieved with taking rest and inhaler therapy. Patient denies minimal worsening cough along with worsening shortness of breath however not far from her baseline. [facility] 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 Acute exacerbation of chronic obstructive airways disease Anxiety Back Pain CAD (coronary artery disease) Chronic headaches COPD (chronic obstructive pulmonary disease) Depression Fatigue HCV (hepatitis C virus) Insomnia Osteoporosis Pneumonia due to other gram-negative bacteria TOMY (renal artery stenosis) Severe aortic regurgitation Tobacco abuse Surgical History History of arthroscopic knee surgery History of breast biopsy History of cancer surgery History of cardiac cath History of carpal tunnel release History of section History of colonoscopy History of coronary artery stent placement History of hernia repair History of hysterectomy History of ureter stent Hx of cholecystectomy Family History (Updated 08/04/22 @ 00:46 by Roz Hill RN) Other Family history of COPD (chronic obstructive pulmonary disease) Family history of anemia Family history of hyperlipidemia Social History (Updated 08/04/22 @ 00:48 by Roz Hill RN) Smoking Status: Current every day smoker tobacco type: cigarettes packs per day: 1 second hand exposure: No alcohol intake: never substance use type: painkillers current occupational status: disabled Travel in the last 8 weeks: None household members: friend(s) housing: house current occupational exposures/hazards: No caffeine: Yes Review of Systems Constitutional Constitutional: Denies anorexia, Reports body ache(s) and Reports fatigue Eyes Eyes: Denies eye discharge, Denies dry eyes, Denies irritation and Denies itchy eyes ENT Ears, Nose, Mouth, and Throat: Denies epistaxis, Denies facial pain, Denies lip swelling and Denies throat swelling *Cardiovascular Cardiovascular: Reports dyspnea, Reports dyspnea on exertion and Reports pedal edema *Respiratory Respiratory: Reports chest congestion, Reports cough, Reports dyspnea, Reports dyspnea on exertion, Reports excessive phlegm production, Denies hemoptysis, Denies pain on inspiration and Reports wheezing *Gastrointestinal Gastrointestinal: Denies abdominal pain, Denies belching and Denies cramping *Musculoskeletal Musculoskeletal: Reports myalgias and Reports other (No small joint swelling or Pain) Psychiatric Psychiatric: Denies homicidal ideation and Denies suicidal ideation Endocrine Endocrine: Reports fatigue and Denies heat intolerance Hematologic/Lymphatic Hematologic/Lymphatic: Denies easy bleeding and Denies lymphadenopathy Allergic/Immunologic Allergic/Immunologic: Denies itchy eyes, Denies lip swelling, Denies throat swelling and Reports wheezing Pulmonology Exam Inpatient Vital signs and Labs for Last 24 Hours: Temp Pulse Resp BP Pulse Ox FiO2 98.0 F 97 H 18 155/91 H 94 L 36 08/07/22 08:00 08/07/22 08:00 08/07/22 08:00 08/07/22 08:00 08/07/22 08:00 08/05/22 18:14 I & O for Labs for Last 24 Hours: Intake & Output 08/04/22 08/05/22 08/06/22 08/07/22 23:59 23:59 23:59 23:59 Intake Total 1610 / 1610 879 / 1360 841 / 841 240 / 240 Output Total 1150 / 1400 1250 / 1250 1999 0 / 0 Balance 460 / 210 -371 / 110 -1159 / -1159 240 / 240 Weight 130 lb 2 oz 132 lb 7 oz 132 lb 4.43
--- NOTE | 2022-08-07 14:55 | PC.NURSE ---
rounded on patient. patient is asleep sitting in chair. assisted placing o2 back on. call light in reach.
--- NOTE | 2022-08-07 17:00 | PC.NURSE ---
Patient VSS, has been up to chair and slept. Patient still has no IV access and provider is aware. No s/s of acute distress noted, call light within reach, bed at lowest level for safety; will continue to monitor.
--- NOTE | 2022-08-07 17:42 | PC.NURSE ---
went to give patient 1700 meds and patient is lying back in the chair asleep, tried to awake by calling name with no response, shook patients arm and call her by name still no response - shook patient a 2nd time and called name and patient aroused very groggy patient took clindamycin and sat back in chair with eyes closed. Held Gabapentin r/t side effect of causing drowsiness.
[2022-08-08] VITALS: BP 132/68; PULSE 69; PULSE 80; RESP 18; TEMP 36.7; O2SAT 94
[2022-08-08 04:00] VITALS: BP 150/82; PULSE 90; PULSE 93; RESP 19; TEMP 36.8; O2SAT 94
--- NOTE | 2022-08-08 04:20 | PC.NURSE ---
No acute changes. Pt tolerating 2 L nc well with sats >90%. Pt able to ambulate to BR with standby assist. No c/o voiced to staff. Bed alarm on for pt safety. Call light within reach.
[2022-08-08 05:15] VITALS: BMI 24.3
[2022-08-08 06:12] VITALS: PULSE 72; O2SAT 95
[2022-08-08 08:00] VITALS: BP 160/76; PULSE 70; PULSE 80; RESP 16; TEMP 36.9; O2SAT 98
--- NOTE | 2022-08-08 09:22 | EXP.PULM.PN ---
Subjective *Date: 08/10/22 *Time: 14:34 Interval history: No acute respiratory vents overnight. Denies any new respiratory complaints. Pulmonology Exam Inpatient Vital signs and Labs for Last 24 Hours: Temp Pulse Resp BP Pulse Ox FiO2 98.4 F 80 16 160/76 H 98 28 08/08/22 08:00 08/08/22 08:00 08/08/22 08:00 08/08/22 08:00 08/08/22 08:00 08/07/22 18:53 I & O for Labs for Last 24 Hours: Intake & Output 08/05/22 08/06/22 08/07/22 08/08/22 23:59 23:59 23:59 23:59 Intake Total 879 / 1360 841 / 841 960 / 960 120 / 120 Output Total 1250 / 1250 2000 / 2000 2600 / 2600 700 / 700 Balance -371 / 110 -1159 / -1159 -1640 / -1640 -580 / -580 Weight 132 lb 7 oz 132 lb 4.438 oz 132 lb 8 oz Microbiology Reports for the Last 24 Hours: Microbiology 08/04/22 03:20 Sputum - Expectorated Sputum Gram Stain - Final 08/04/22 03:20 Sputum - Expectorated Sputum Sputum Culture - Final Normal Respiratory Carlos Head: normocephalic and atraumatic ENT: normal exam, normal oropharynx and mucous membranes moist Neck: normal inspection and full ROM Respiratory: accessory muscle use, respiratory distress, rhonchi, wheezes, diminished air movement and able to speak in complete sentences Cardiac: S1/S2, Tachycardia and radial pulses present GI: soft, distention, tenderness or guarding Rectal (female): deferred (female): deferred Skin: intact, cyanosis or jaundice Neuro: alert, awake and oriented x 3 Extremities: normal inspection, edema, clubbing or cyanosis Psychiatric: normal affect and cooperative Assessment and Plan *Assessment and plan (1) CAP (community acquired pneumonia): Status: Acute Category: Medical Code(s): J18.9 - Pneumonia, unspecified organism (2) COPD exacerbation: Status: Acute Category: Medical Code(s): J44.1 - Chronic obstructive pulmonary disease with (acute) exacerbation Plan Ms. Rush is a 56-year-old female current smoker greater than [id number] smoking history, bronchiectasis, recurrent COPD exacerbations, prior history of MDR Klebsiella pneumonia status post ertapenem x10 days presented to the hospital with a short an episode of choking followed by shortness of breath that eventually resolved after increasing her oxygen requirements. Patient denies minimal worsening cough along with worsening shortness of breath however not far from her baseline. #COPD exacerbation: #Community-acquired pneumonia: #Bronchiectasis: Current smoker greater than [id number] smoking history.? History of COPD on Trelegy 100 along with DuoNebs every 6 hours on as-needed basis Checks x-ray on admission personally reviewed, faint right lower lobe infiltrate that appears to be improving. Patient was initiated on breathing treatments along with clindamycin. Labs personally reviewed, leukocytosis on admission, neutrophil predominant. Blood cultures no growth 48 hours.? Sputum cultures normal respiratory carlos, moderate budding yeast and hyphae. Interval update: No acute respiratory events. Respiratory status remained stable. Antibiotics changed to levofloxacin Plan: -Sputum normal respiratory carlos, can be discharged on clindamycin to complete a total of 7-day course -F/U sputum AFB culure -Continue oxygen as needed to maintain O2 saturation goal of 90% and above -Continue Trelegy 100 inhaler along with DuoNebs every 6 hours on as-needed basis -Continue flutter valve and incentive spirometry, will evaluate the need for chest percussion therapy as an outpatient basis -We will follow the patient in the clinic in 7 days and further determine the need for bronchoscopy.? Patient most recent CT chest from March 2022 bilateral diffuse micronodular pattern concerning for atypical infections. -Follow with cardiology for volume optimization, bilateral lower extremity edema noted.? Diastolic dysfunction severe aortic regurgitation. #Thank you for involving pulmonary in t
[2022-08-08 12:00] VITALS: BP 110/75; PULSE 70; PULSE 73; RESP 16; TEMP 36.9; O2SAT 92
--- NOTE | 2022-08-08 12:30 | EXP.CARD.CON ---
History of Present Illness History of Present Illness Consult date: 08/08/22 Requesting physician: Chuck Pineda Consult reason: congestive heart failure Chief complaint: SOA, hypoxemia, COPD Additional 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:: 1.? Mild CAD A.? [facility], 12/2020 shows:??Mild nonflow limiting coronary disease with Hyperdynamic ventricle (EF 70%) but Normal LVEDP 2.? COPD with continued tobacco use A.? Chronic oxygen therapy 3.? Aortic Regurgitation, severe A.?[facility], 07/06/2022, 1.? Mild biatrial enlargement, normal left ventricular size mild concentric left ventricular hypertrophy, estimated ejection fraction 55% with no regional wall motion abnormality. 2.? Thickened and calcified aortic valve without aortic stenosis, there is severe aortic insufficiency. 3.?.Aortic root and ascending aorta and descending aorta is normal size. Non mobilel atheromatous plaque seen in the descending thoracic aorta. Inferior vena cava is poorly visualized B. CHF related to vavular disease 4.? History of IV drug use, clean since 2020 A.? Hepatitis C, diagnosed 2021 5.? Carotid stenosis A.? Carotid artery ultrasound, 07/2021, MARIANNA 50-69%, LICA 20-49% B.? Carotid artery ultrasound, 03/2022, less than 50% stenosis bilaterally 6.? Renal artery stenosis A.? Left renal artery stenting, 12/2020. 7.? Hyperlipidemia 8.? Psychiatric illness/psychosis with prior hallucinations that resolved on risperidone History of present illness: 56-year-old white female admitted for exacerbation of COPD with hypoxemia despite supplemental oxygen use. Patient has been treated for COPD exacerbation along with community-acquired pneumonia. Patient has known history of severe aortic insufficiency with recent confirmation by transesophageal echocardiogram. She has some chronic lower extremity edema that is stable and at baseline per patient. She feels like her shortness of breath has improved since she has been in the hospital and is anxious to go home. I contacted Dr. Orourke to discuss whether she would be a candidate for a TAVR procedure for her aortic valve. He felt like she would be after she finishes her current antibiotic regimen. [facility] 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 Acute exacerbation of chronic obstructive airways disease Anxiety Back Pain CAD (coronary artery disease) Chronic headaches COPD (chronic obstructive pulmonary disease) Depression Fatigue HCV (hepatitis C virus) Insomnia Osteoporosis Pneumonia due to other gram-negative bacteria TOMY (renal artery stenosis) Severe aortic regurgitation Tobacco abuse Surgical History History of arthroscopic knee surgery History of breast biopsy History of cancer surgery History of cardiac cath History of carpal tunnel release History of section History of colonoscopy History of coronary artery stent placement History of hernia repair History of hysterectomy History of ureter stent Hx of cholecystectomy Family History (Updated 08/04/22 @ 00:46 by Roz Hill, RN) Family history of anemia Family history of COPD (chronic obstructive pulmonary disease) Family history of hyperlipidemia Social History (Updated 08/04/22 @ 00:48 by Rzo Hill, RN) Smoking Status: Current every day smoker tobacco type: cigarettes packs per day: 1 second hand exposure: No alcohol intake: never substance use type: painkillers current occupational status: disabled Travel in the last 8 weeks: None household members: friend(s) housing: house current occupational exposures/hazards: No caffeine: Yes Review of Systems Review of Systems Review of systems:: pertinent systems reviewed and negative unless documented below *Cardiovascular Cardiovascular: Denies chest pain, Reports dyspnea and Reports dyspnea on exertion *Respiratory Respiratory: Reports dyspnea and Reports dyspnea on exertion Exam Data for Last
--- NOTE | 2022-08-08 14:11 | EXP.DC.SUM ---
General Admission date:: 08/04/22 Discharge date: 08/08/22 HPI HPI HPI: 56 yo female with chronic lung disease presents to ER with cough,congestion, weakness, and RLL pneumonia. Somnolent at time of exam. Recent CARMEN is reviewed. Hospital Course Hospital Course Hospital Course: pt with slow improvement in resp status with ivf and abx with resp treatments -pt seen by pul consult-. a 56-year-old female current smoker greater than [id number] smoking history, bronchiectasis, recurrent COPD exacerbations, prior history of MDR Klebsiella pneumonia status post ertapenem x10 days presented to the hospital with a short an episode of choking followed by shortness of breath that eventually resolved after increasing her oxygen requirements. Shortness of breath along with recent worsening for the last 4 days.? Worsened with exertion relieved with taking rest and inhaler therapy. Patient denies minimal worsening cough along with worsening shortness of breath however not far from her baseline. #COPD exacerbation: #Community-acquired pneumonia: #Bronchiectasis: Current smoker greater than [id number] smoking history.? History of COPD on Trelegy 100 along with DuoNebs every 6 hours on as-needed basis Checks x-ray on admission personally reviewed, faint right lower lobe infiltrate that appears to be improving. Patient was initiated on breathing treatments along with clindamycin. Labs personally reviewed, leukocytosis on admission, neutrophil predominant. Blood cultures no growth 48 hours.? Sputum cultures normal respiratory carlos, moderate budding yeast and hyphae. Auscultation bilateral minimal expiratory wheeze along with rhonchorous breath sounds.? Saturating 94% on room air at rest Plan: Sputum AFB cutures prior to discharge -Continue oxygen as needed to maintain O2 saturation goal of 90% and above -Continue Trelegy 100 inhaler along with DuoNebs every 6 hours on as-needed basis -Continue clindamycin x7 days.? Follow with final sputum culture results -Continue flutter valve and incentive spirometry, will evaluate the need for chest percussion therapy as an outpatient basis -We will follow the patient in the clinic in 7 days and further determine the need for bronchoscopy.? Patient most recent CT chest from March 2022 bilateral diffuse micronodular pattern concerning for atypical infections. -Follow with cardiology for volume optimization, bilateral lower extremity 3+ edema noted.? Diastolic dysfunction severe aortic regurgitation. pt was seen by card -) COPD with acute exacerbation: ?Status:?Acute ?Category:?Medical ?Code(s): J44.1 - Chronic obstructive pulmonary disease with (acute) exacerbation (2) Severe aortic regurgitation: ?Status:?Acute ?Category:?Medical ?Code(s): I35.1 - Nonrheumatic aortic (valve) insufficiency (3) Tobacco use: ?Status:?Acute ?Category:?Social Hx ?Code(s): Z72.0 - Tobacco use (4) Congestive heart failure: ?Status:?Acute ?Qualifiers: ?Heart failure chronicity:?acute on chronic??Heart failure type:?diastolic? Qualified Code(s):?I50.33 - Acute on chronic diastolic (congestive) heart failure ?Category:?Medical ?Code(s): I50.9 - Heart failure, unspecified Assessment and plan all Dx Assessment and Plan All Dx:: Patient is stable from a cardiac standpoint for discharge home.? She has had a negative urine output of over 3 L during this hospital stay with improvement in her breathing and lower extremity edema.? She has chronic COPD and severe aortic insufficiency.? We will refer her to the [facility] cardiology program for consideration of TAVR.? We would like to see her back in the office in 2 weeks. Continue home medications bisoprolol 5 mg daily, aspirin 81 mg daily, Plavix 75 mg daily, furosemide 20 mg daily, pravastatin 10 mg daily and Protonix 40 mg daily. pt was d/c improved to home and will closely follow with pul medicine Exam Data for Last 24 hours
--- NOTE | 2022-08-08 14:42 | PC.NURSE ---
PT IS SITTING UP IN THE CHAIR. ALERT AND ORIENTED X4. PT STATES SHE IS READY TO BE DISCHARGED. AMBULATES TO THE BATHROOM. EATING AND DRINKING WELL. LUNG SOUNDS HAVE SCATTERED WHEEZES/RHONCHI. ABDOMEN SOFT/NON TENDER WITH ACTIVE BOWEL SOUNDS. WILL CONTINUE TO MONITOR.
[2022-08-08 16:00] VITALS: BP 153/74; PULSE 73; RESP 18; TEMP 36.6; O2SAT 95
--- NOTE | 2022-08-10 14:03 | CARE MANAGER ---
Attempted to contact patient related to hospital discharge. Unable to reach patient.
== END 2022-08-08 16:29 | disposition home or self-care (01) | DRG 192 ==
LOC: ER 20:15 → ICU 22:44 → 2ND 08-08 13:17 → ICU 08-22 15:31
PROVIDERS: Family Medicine; Admitting Provider Emergency Medicine; Emergency Provider Emergency Medicine; PCP Emergency Medicine; Visit Provider Emergency Medicine
DX: J47.0 Bronchiectasis with acute lower respiratory infection (principal); J18.9 Pneumonia, unspecified organism; B19.20 Unspecified viral hepatitis C without hepatic coma; M81.0 Age-related osteoporosis without current pathological fracture; I35.1 Nonrheumatic aortic (valve) insufficiency; I25.10 Atherosclerotic heart disease of native coronary artery without angina pectoris; F32.A Depression, unspecified; F17.210 Nicotine dependence, cigarettes, uncomplicated
CPT/HCPCS: 36415; 71045; 71046; 80048; 80053; 81001; 82803; 83605; 84145; 84484; 85007; 85025; 85651; 86140; 87040; 87070; 87205; 92610; 93005; 94640; 94760; 94761; 99285; C9803; G0378; J0574; J1956; U0003; U0005

== ENCOUNTER 2022-08-11 01:08 | Emergency (ER) | payer OTHER, SELFPAY ==
[2022-08-11] VITALS (8 sets, daily range): BP systolic 136–172; BP diastolic 81–97; PULSE 103–130; RESP 20–22; TEMP 36.6–36.7; O2SAT 91–95; BMI 24.1; BMI 25.7
--- NOTE | 2022-08-11 01:05 | ECG_ITS ---
APPROVED REPORT Exam: Resting ECG HR:117 bpm ECG Measurements Heart Rate 117 AXES SD 113 P 71 QRSd 82 QRS 72 QT 310 T 79 QTc 380 Conclusion SINUS TACHYCARDIA WITH SHORT SD INTERVAL POSSIBLE LEFT ATRIAL ENLARGEMENT [-0.1mV P-WAVE IN V1/V2] ABNORMAL RHYTHM ECG UNCONFIRMED REPORT Electronically signed by : Evaristo Gonzalez MD 08/12/2022 15:25:34
--- NOTE | 2022-08-11 01:09 | XR_ITS ---
PROCEDURE INFORMATION: Exam: XR Chest Exam date and time: 08/11/2022 1:23 AM Age: 56 years old Clinical indication: Shortness of breath; Additional info: SOA TECHNIQUE: Imaging protocol: Radiologic exam of the chest. Views: 1 view. COMPARISON: CR XR CHEST PORTABLE 08/06/2022 3:47 PM, chest x-ray 08/03/2022 FINDINGS: Lungs: Decreased pulmonary expansion. Pulmonary vasculature grossly normal. Interstitial prominence in the perihilar and basilar distributions again noted. Minor alveolar opacity in the medial right base with a few air bronchograms, atelectasis versus pneumonia. This is similar to 08/03/2022. Consider aspiration pneumonia. Pleural spaces: Mild bilateral apical pleural/parenchymal scarring. No pleural effusion. No pneumothorax. Heart/Mediastinum: Heart size normal. No tracheal/mediastinal shift. Bones/joints: No acute osseous abnormalities are identified. IMPRESSION: 1. Mild alveolar density in the medial right lung base with a few air bronchograms, unchanged. This could represent atelectasis or pneumonia, consider aspiration pneumonia. 2. Interstitial changes in the perihilar and basilar distributions, possibly changes of chronic bronchitis or interstitial scarring.
--- NOTE | 2022-08-11 01:13 | PC.NURSE ---
RAD at for CXR
[2022-08-11 01:22] LABS: Basophils # 0.1 K/mm3 (0-0.2); Basophils % 0.4 % (0.1-2.0); Eosinophils # 0.3 K/mm3 (0.0-0.4); Eosinophils % 2.3 % (0.1-12.0); Lymphocytes # 1.7 K/mm3 (0.7-4.5); Mean Corpuscular HGB Conc 30.9 g/dL (31.8-35.4); Mean Platelet Volume 8.1 fl (7.4-10.4); Monocytes # 0.8 K/mm3 (0.1-1.0); Monocytes % 5.6 % (1.7-9.3); Neutrophils # 12.1 K/mm3 (1.8-7.8); Neutrophils % 80.8 % (37.0-80.0); Platelet Count 439 K/mm3 (142-424); Red Blood Count 3.58 M/mm3 (4.20-5.40); Red Cell Distribution Width 19.5 % (11.5-17.5)
[2022-08-11 01:24] LABS: MANUAL DIFFERENTIAL MANUAL DIFFERENTIAL (MANUAL DIFF)
[2022-08-11 01:33] LABS: Lactic Acid 0.8 mmol/L (0.7-2.1)
[2022-08-11 01:34] LABS: Alanine Aminotransferase 17 U/L (12-78); Albumin Level 3.3 g/dl (3.5-5.0); Alkaline Phosphatase 70 U/L (38-126); Anion Gap 10.8 mEq/L (5-15); Aspartate Amino Transferase 30 U/L (14-36); Blood Urea Nitrogen 14 mg/dl (7-17); Carbon Dioxide 24 mmol/L (22.0-30.0); Chloride 111 mmol/L (98-107); Creatinine Clearance Estimated 55 mL/min (50-200); Estimated Glomerular Filt Rate 52 ml/min (>60); GFR (African American) 62 ML/MIN (>60); Glucose 107 mg/dl (74-100); Potassium 3.8 mmoL/L (3.5-5.1); Sodium 142 mmol/L (136-145); Total Protein,Serum 6.5 g/dl (6.3-8.2)
[2022-08-11 01:39] LABS: Bilirubin,Direct < 0.1 mg/dl (0.0-0.4); Bilirubin,Total < 0.1 mg/dl (0.2-1.3); C-Reactive Protein 41.7 mg/L (0-4)
[2022-08-11 01:41] LABS: Anisocytosis 2+; Hypochromasia 2+; Lymphocytes % 3 % (10-50); Microcytosis 2+; Neutrophils % 92 % (42-76); Platelet Estimate Slight Increase; Rouleaux 3+; Total Cells Counted 100
[2022-08-11 01:46] LABS: Erythrocyte Sedimentation Rate > 140 mm/hr (0-30)
[2022-08-11 01:49] LABS: NT Pro Brain Natriuretic Pep. 447 pg/mL (0-125)
[2022-08-11 01:53] LABS: Procalcitonin 0.151 ng/mL (0.0-2.0)
[2022-08-11 01:54] LABS: ABG HCO3 19.6 mmhg (22.0-26.0); ABG Oxygen Saturation 86 % (90-100); ABG PCO2 36.5 mmhg (35.0-45.0); ABG PH 7.35 mmol/L (7.35-7.45); ABG PO2 55.3 mmhg (80-100); ABG TCO2 20.7 mmhg (23-27)
[2022-08-11 01:56] LABS: Troponin I < 0.01 ng/ml (0.00-0.034)
[2022-08-11 01:58] LABS: Allen's Test Acceptable; Source Right Radial
--- NOTE | 2022-08-11 02:29 | PC.NURSE ---
Pt resting in bed. No needs or complaints voiced. Call light within reach.
--- NOTE | 2022-08-11 03:30 | HMH.EDSOB ---
Discharge Plan Disposition Patient Disposition: Left Against Medical Advice Chief Complaint: Shortness of Breath/Dyspnea Prescriptions Prescriptions: No Action buprenorphine-naloxone 8-2 mg tablet, sublingual 2 tab SL DAILY ondansetron HCl 4 mg tablet 4 mg PO TIDP PRN (Reason: Nausea) nicotine 21 MG/PATCH patch 24 hour 21 mg TD DAILYP PRN (Reason: Nicotine Cravings) Qty: 30 0RF tizanidine 4 MG tablet 4 mg PO TIDP PRN (Reason: muscle spasms) famotidine 40 MG tablet 40 mg PO DAILY alendronate 70 MG tablet 70 mg PO WEEKLY furosemide 20 MG tablet 20 mg PO DAILY albuterol sulfate 8.5 GM HFA aerosol inhaler 2 puff PO Q6H rosuvastatin 5 MG tablet 5 mg PO DAILY megestrol 625 MG/5 ML suspension 625 mg PO DAILYP PRN (Reason: appetite) albuterol sulfate 0.63 MG/3 ML solution for nebulization 3 ml IH QIDP PRN (Reason: Shortness Of Breath) bisoprolol fumarate 5 mg tablet 5 mg PO DAILY bupropion HCl 75 mg tablet 75 mg PO BID calcium carbonate-vitamin D3 600 mg-10 mcg (400 unit) tablet 400 tab PO DAILY clonazepam 0.5 mg tablet 0.5 mg PO TID escitalopram oxalate 20 mg tablet 20 mg PO DAILY estradiol 1 mg tablet 1 mg PO DAILY gabapentin 800 mg tablet 800 mg PO TID Trelegy Ellipta 100-62.5-25 mcg blister with device 1 inh inhalation DAILY risperidone 2 mg tablet 2 mg PO HS clindamycin HCl 300 mg capsule 300 mg PO TID Qty: 30 0RF docusate sodium 100 MG capsule 100 mg PO DAILYP PRN (Reason: Constipation) clopidogrel 75 MG tablet 75 mg PO DAILY aspirin 81 MG tablet,delayed release (DR/EC) 81 mg PO DAILY Referrals Follow up/Referrals: Chuck Pineda MD [Primary Care Provider] - See instructions Clinical Impressions Clinical Impression: COPD (chronic obstructive pulmonary disease), Severe aortic regurgitation Instructions Patient Instructions: DI for Chronic Obstructive Pulmonary Disease Discharge ED Provider: Chuck Pineda Resp/SOB HPI General Chief Complaint: Shortness of Breath/Dyspnea Stated Complaint: SOA Time Seen by Provider: 08/11/22 03:30 Mode of Arrival: EMS Source of Information: Patient, EMS and Medical Record Limitations: No Limitations Description of Symptoms (Recalled from ER Triage Doc. by RN): pt states that roughly one hour ago she was getting ready for bed and felt short of air with body aches. Gave herself two duoneb treatments which were not helpful. History of Present Illness acute exacerbation of sob with hx of copd - has been compliant with meds MD Complaint: shortness of breath, cough and anxiety Onset (ago): hour(s) Context: recent illness Severity: moderate Associated symptoms: cough Related Data Home oxygen amount: 2 liters Home Medications Medication Instructions Recorded Confirmed buprenorphine 8 mg-naloxone 2 mg 2 tab sublingual DAILY drug abuse 03/22/21 08/04/22 sublingual tablet treatment docusate sodium 100 mg capsule 100 mg PO DAILYP PRN Constipation 03/04/22 08/04/22 aspirin 81 mg tablet,delayed 81 mg PO DAILY Heart disease 04/30/22 08/04/22 release clopidogrel 75 mg tablet 75 mg PO DAILY platelet inhibitor 04/30/22 08/04/22 albuterol sulfate 0.63 mg/3 mL 3 ml inhalation QIDP PRN Shortness 06/24/22 08/04/22 solution for nebulization Of Breath albuterol sulfate 90 mcg/actuation 2 puff PO Q6H Asthma 06/24/22 08/04/22 aerosol inhaler alendronate 70 mg tablet 70 mg PO WEEKLY osteoporosis 06/24/22 08/04/22 prevention famotidine 40 mg tablet 40 mg PO DAILY acid reflux 06/24/22 08/04/22 furosemide 20 mg tablet 20 mg PO DAILY Edema 06/24/22 08/04/22 megestrol 625 mg/5 mL (125 mg/mL) 625 mg PO DAILYP PRN appetite 06/24/22 08/04/22 oral suspension rosuvastatin 5 mg tablet 5 mg PO DAILY Cholesterol 06/24/22 08/04/22 tizanidine 4 mg tablet 4 mg PO TIDP PRN muscle spasms 06/24/22 08/04/22 ondansetron HCl 4 mg tabl
[2022-08-11 03:32] LABS: Coronavirus 19, PCR Not Detected (NotDetected); Influenza A, PCR Not Detected (NotDetected); Influenza B, PCR Not Detected (NotDetected)
--- NOTE | 2022-08-11 03:32 | PC.NURSE ---
Pt resting with eyes closed. No needs or complaints voiced. Call light within reach.
--- NOTE | 2022-08-11 04:30 | PC.NURSE ---
Pt ambulatory to bathroom with assistance. Pt remained on O2 while ambulating to bathroom and back to bed.
--- NOTE | 2022-08-11 04:36 | PC.NURSE ---
RT at BS to administer breathing treatment
[2022-08-11 04:46] LABS: Troponin I < 0.01 ng/ml (0.00-0.034)
--- NOTE | 2022-08-11 04:55 | PC.NURSE ---
Patient spoke with regarding her care and how she needs to be more compliant with her current plan of care, which includes quitting smoking. Patient became upset with , stating that she does everything that he recommends, with the exception of quitting smoking. When MD left the patients bedside he ordered an additional breathing treatment. Following the treatment the patient demanded to leave ama. Patient was informed that she was able to leave ama whenever she wished, however, she was welcome,and it was recommended, that she stay in her ER bay with her oxygen until her ride arrived to take her home, to which she agreed.
--- NOTE | 2022-08-11 05:01 | PC.NURSE ---
Patient signed ama form, was assisted out to her friends vehicle in a wheel chair,IV pulled prior to discharge.
== END 2022-08-11 05:00 | disposition left against medical advice (07) ==
PROVIDERS: Emergency Provider Emergency Medicine; PCP Emergency Medicine
DX: J44.1 Chronic obstructive pulmonary disease with (acute) exacerbation (principal); F17.210 Nicotine dependence, cigarettes, uncomplicated; Z99.81 Dependence on supplemental oxygen; I35.1 Nonrheumatic aortic (valve) insufficiency; I10 Essential (primary) hypertension; I25.10 Atherosclerotic heart disease of native coronary artery without angina pectoris; Z79.02 Long term (current) use of antithrombotics/antiplatelets; Z53.29 Procedure and treatment not carried out because of patient's decision for other reasons
CPT/HCPCS: 71045; 80048; 80076; 82803; 83605; 83880; 84145; 84484; 85007; 85025; 85651; 86140; 87040; 93005; C9803; U0003; U0005

== ENCOUNTER 2022-08-11 07:49 | Inpatient (IN) | payer OTHER, SELFPAY ==
[2022-08-11] VITALS (17 sets, daily range): BP systolic 122–179; BP diastolic 64–96; PULSE 85–137; RESP 15–43; TEMP 36.8–37.6; O2SAT 91–98; BMI 24.1; BMI 23.8
--- NOTE | 2022-08-11 07:49 | ECG_ITS ---
APPROVED REPORT Exam: Resting ECG HR:129 bpm ECG Measurements Heart Rate 129 AXES SC 120 P 74 QRSd 81 QRS 72 QT 290 T 78 QTc 366 Conclusion SINUS TACHYCARDIA ABNORMAL RHYTHM ECG UNCONFIRMED REPORT Electronically signed by : Evaristo Gonzalez MD 08/12/2022 15:25:25
--- NOTE | 2022-08-11 08:01 | XR_ITS ---
PROCEDURE INFORMATION: Exam: XR Chest Exam date and time: 08/11/2022 8:18 AM Age: 56 years old Clinical indication: Shortness of breath; Additional info: Cough, wheezing, SOA TECHNIQUE: Imaging protocol: Radiologic exam of the chest. Views: 1 view. COMPARISON: CR XR CHEST PORTABLE 08/11/2022 1:23 AM FINDINGS: Lungs: Slight worsening of patchy airspace opacity in the medial right base, worrisome for pneumonia. Recommend follow-up to resolution. Continued perihilar and bibasilar interstitial prominence. Pleural spaces: Unremarkable. No pleural effusion. No pneumothorax. Heart/Mediastinum: Unremarkable. No cardiomegaly. Bones/joints: Unremarkable. IMPRESSION: 1. Slight worsening of patchy airspace opacity in the medial right base, worrisome for pneumonia. Recommend follow-up to resolution. 2. Continued perihilar and bibasilar interstitial prominence.
[2022-08-11 08:09] LABS: Basophils # 0.1 K/mm3 (0-0.2); Basophils % 0.3 % (0.1-2.0); Eosinophils # 0.2 K/mm3 (0.0-0.4); Hemoglobin 8.5 g/dL (12.2-16.2); Lymphocytes # 1.3 K/mm3 (0.7-4.5); Lymphocytes % 6.5 % (10-50); Mean Corpuscular HGB Conc 31.5 g/dL (31.8-35.4); Mean Corpuscular Hemoglobin 25.5 pg (27.0-31.2); Mean Corpuscular Volume 80.7 fl (81-99); Mean Platelet Volume 7.8 fl (7.4-10.4); Neutrophils # 17.9 K/mm3 (1.8-7.8); Neutrophils % 87.2 % (37.0-80.0); Platelet Count 421 K/mm3 (142-424); Red Blood Count 3.34 M/mm3 (4.20-5.40); Red Cell Distribution Width 19.6 % (11.5-17.5); White Blood Count 20.6 K/mm3 (4.8-10.8)
--- NOTE | 2022-08-11 08:12 | PC.NURSE ---
Radiology at bedside. Assisted pt off bedpan and cleaned her up. Provided warm blanket and readjusted pt in the bed.
[2022-08-11 08:16] LABS: Alanine Aminotransferase 18 U/L (12-78); Albumin Level 3.2 g/dl (3.5-5.0); Alkaline Phosphatase 67 U/L (38-126); Aspartate Amino Transferase 29 U/L (14-36); Blood Urea Nitrogen 15 mg/dl (7-17); Calcium 8.1 mg/dl (8.4-10.2); Carbon Dioxide 25 mmol/L (22.0-30.0); Chloride 109 mmol/L (98-107); Creatinine Clearance Estimated 60 mL/min (50-200); Estimated Glomerular Filt Rate 58 ml/min (>60); GFR (African American) 70 ML/MIN (>60); Globulin 3.2 g/dL (1.3-3.2); Glucose 109 mg/dl (74-100); Sodium 140 mmol/L (136-145); Total Protein,Serum 6.4 g/dl (6.3-8.2)
[2022-08-11 08:17] LABS: Bilirubin,Total < 0.1 mg/dl (0.2-1.3)
[2022-08-11 08:40] LABS: Troponin I < 0.01 ng/ml (0.00-0.034)
[2022-08-11 08:41] LABS: VBG Base Excess -2.9 mmol/L (-2.4-2.3); VBG HCO3 22.5 mmol/L (23-30); VBG Oxygen Saturation 98.7 % (50-70); VBG PCO2 40.2 mmol/L (35-51); VBG PH 7.37 mmol/L (7.31-7.41); VBG PO2 153.2 mmol/L (28-40); VBG Total CO2 23.7 mmol/L (23-27)
--- NOTE | 2022-08-11 08:42 | PC.NURSE ---
pt up to bsc. pt tolerated well
--- NOTE | 2022-08-11 08:53 | HMH.EDGENADL ---
Discharge Plan Disposition Patient Disposition: Admitted as Observation Condition: Fair Clinical Impressions Clinical Impression: Acute exacerbation of chronic obstructive pulmonary disease (COPD), Pneumonia involving right lung Discharge ED Provider: Sue Feldman Adult HPI General Chief complaint: Shortness of Breath/Dyspnea Stated complaint: soa Time Seen by Provider: 08/11/22 08:00 Mode of Arrival: EMS Source of Information: Patient Limitations: No Limitations Description of Symptoms (Recalled from ER Triage Doc. by RN): c/o soa History of Present Illness HPI narrative: 56-year-old female presenting to the emergency department shortness of breath. Symptoms started a few days ago, got worse overnight. She feels like she is breathing fast, wheezing. She suffers from COPD. Continues to smoke tobacco. She has been using her inhalers as prescribed. Home oxygen, about 2 L. Denies recent steroid or antibiotic use. No chest pain. No leg swelling. No cough, fevers, chills. Related Data Home Medications Medication Instructions Recorded Confirmed buprenorphine 8 mg-naloxone 2 mg 2 tab sublingual DAILY drug abuse 03/22/21 08/11/22 sublingual tablet treatment docusate sodium 100 mg capsule 100 mg PO DAILYP PRN Constipation 03/04/22 08/11/22 aspirin 81 mg tablet,delayed 81 mg PO DAILY Heart disease 04/30/22 08/11/22 release clopidogrel 75 mg tablet 75 mg PO DAILY platelet inhibitor 04/30/22 08/11/22 albuterol sulfate 0.63 mg/3 mL 3 ml inhalation QIDP PRN Shortness 06/24/22 08/11/22 solution for nebulization Of Breath albuterol sulfate 90 mcg/actuation 2 puff PO Q6H Asthma 06/24/22 08/11/22 aerosol inhaler alendronate 70 mg tablet 70 mg PO WEEKLY osteoporosis 06/24/22 08/11/22 prevention famotidine 40 mg tablet 40 mg PO DAILY acid reflux 06/24/22 08/11/22 furosemide 20 mg tablet 20 mg PO DAILY Edema 06/24/22 08/11/22 megestrol 625 mg/5 mL (125 mg/mL) 625 mg PO DAILYP PRN appetite 06/24/22 08/11/22 oral suspension rosuvastatin 5 mg tablet 5 mg PO DAILY Cholesterol 06/24/22 08/11/22 tizanidine 4 mg tablet 4 mg PO TIDP PRN muscle spasms 06/24/22 08/11/22 ondansetron HCl 4 mg tablet 4 mg PO TIDP PRN Nausea 07/16/22 08/11/22 bisoprolol fumarate 5 mg tablet 5 mg PO DAILY High blood pressure 08/04/22 08/11/22 bupropion HCl 75 mg tablet 75 mg PO BID Depression 08/04/22 08/11/22 calcium carbonate 600 mg-vitamin 1 tab PO DAILY Supplement 08/04/22 08/11/22 D3 10 mcg (400 unit) tablet clonazepam 0.5 mg tablet 0.5 mg PO TID Anxiety 08/04/22 08/11/22 escitalopram oxalate 20 mg tablet 20 mg PO DAILY Depression 08/04/22 08/11/22 estradiol 1 mg tablet 1 mg PO DAILY HORMONE REPLACEMENT 08/04/22 08/11/22 fluticasone fur. 100 mcg-umeclid 1 inh inhalation DAILY COPD 08/04/22 08/11/22 62.5 mcg-vilant 25 mcg inhalat.powder (Trelegy Ellipta) gabapentin 800 mg tablet 800 mg PO TID NEUROPATHY 08/04/22 08/11/22 risperidone 2 mg tablet 2 mg PO HS Restless leg 08/04/22 08/11/22 clindamycin HCl 300 mg capsule 300 mg PO TID Infection 08/11/22 08/11/22 Previous Rx's Medication Instructions Recorded nicotine 21 mg/24 hr daily 21 mg transdermal DAILYP PRN 05/11/22 transdermal patch Nicotine Cravings #30 patches Allergies Allergy/AdvReac Type Severity Reaction Status Date / Time atorvastatin AdvReac Intermediate myalgia Verified 07/20/22 11:34 aspirin [ASPIRIN] AdvReac Unknown Verified 07/20/22 11:34 codeine [CODEINE] AdvReac Unknown Verified 07/20/22 11:34 propoxyphene [PROPOXYPHENE] AdvReac Unknown Verified 07/20/22 11:34 tramadol [TRAMADOL] AdvReac Unknown Verified 07/20/22 11:34 [facility] 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 (Updated 08/11/22 @ 12:18 by Marisol Reynolds RN) Acute exacerbation of chronic obstructive airways disease Anxiety Back Pain CAD (coronary artery disease) Chronic headaches COPD (chronic obstructive pulmonary disease) Depression Fatigue HCV (hepatitis C virus) Insomnia Osteoporosis Pneumonia due
--- NOTE | 2022-08-11 09:25 | PC.NURSE ---
ATB IS BEING STARTED BUT PT HAD BLOOD CULTURES DRAWN APPROX 7 HRS AGO FROM PREVIOUS VISIT
--- NOTE | 2022-08-11 11:05 | HMH.PHAINT1 ---
Pharmacy Intervention Comments: MEDICATION RECONCILIATION COMPLETED ON PATIENT USING EXTERNAL FILL HISTORY FROM PHARMACY AND DISCHARGE SUMMARY FROM PREVIOUS ADMISSION. -RADHA COLLINS, SARITHAD
--- NOTE | 2022-08-11 11:08 | PC.NURSE ---
contacted house. pt had a covid swab at 1am this morning, a new one is not needed per hS
--- NOTE | 2022-08-11 11:47 | PC.NURSE ---
called for bed placement
--- NOTE | 2022-08-11 12:21 | PC.NURSE ---
report called to Chetna
--- NOTE | 2022-08-11 12:33 | PC.NURSE ---
Pt arrived to the floor at this time
--- NOTE | 2022-08-11 13:43 | PC.NURSE ---
upon admission assessment pt is noted to be very lethargic. responds to painful stimuli but falls back asleep. Her lungs are very coarse . there is no edema noted upon assessment. pt is SOA. She is pale. 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
[2022-08-11 14:00] LABS: NT Pro Brain Natriuretic Pep. 490 pg/mL (0-125)
--- NOTE | 2022-08-11 15:27 | PC.NURSE ---
pt is requesting to leave AMA. I educated pt on risks of leaving against medical advice. She reports she is not sick and will leave. Contacted MD vocational rehabilitation technician. Will dc crawford cath and IV
--- NOTE | 2022-08-11 21:48 | PC.NURSE ---
spoke with Dr Pineda about pt request for clonazepam. ordered clonazepam one time dose to give now.
[2022-08-12] VITALS (8 sets, daily range): BP systolic 133–162; BP diastolic 74–96; PULSE 76–124; RESP 17–22; TEMP 36.7–37.4; O2SAT 87–100; BMI 24.0
--- NOTE | 2022-08-12 03:41 | PC.NURSE ---
pt has been restless t/o the night. crawford cath is in place, urine is blood tinged. pt has been up and down out of bed t/o the night, gait is unsteady. o2 sats have been in the 90s with 4L NC, when pt has it on. CB in reach, bed alarm on and functioning.
--- NOTE | 2022-08-12 09:31 | P.CONPHA_ITS ---
[facility] Pharmacy VTE Monitoring Patient Demographics Admission date: 08/11/22 Report Date: 08/12/22 Time: 09:31 Patient Allergies atorvastatin Adverse Reaction (Intermediate, Verified 07/20/22 11:34) myalgia aspirin [ASPIRIN] Adverse Reaction (Unknown, Verified 07/20/22 11:34) codeine [CODEINE] Adverse Reaction (Unknown, Verified 07/20/22 11:34) propoxyphene [PROPOXYPHENE] Adverse Reaction (Unknown, Verified 07/20/22 11:34) tramadol [TRAMADOL] Adverse Reaction (Unknown, Verified 07/20/22 11:34) Height: 1.57 m Weight: 59.101 kg Current Active Problems (Updated 08/12/22 @ 00:00 by Background Daemon) Acute exacerbation of chronic obstructive pulmonary disease (COPD) (Acute) Pneumonia involving right lung (Acute) VTE Risk Labs: VTE Related Lab Results Hgb 8.5 g/dL (12.2-16.2) L 08/11/22 07:50 Hct 27.0 % (37.0-47.0) L 08/11/22 07:50 Plt Count 421 K/mm3 (142-424) 08/11/22 07:50 BUN 15 mg/dl (7-17) 08/11/22 07:50 Creatinine 1.00 mg/dl (0.52-1.04) 08/11/22 07:50 Estimated Creat Clear 60 mL/min (50-200) 08/11/22 07:50 Was VTE Risk Assessment Performed: Yes VTE Score: 9 VTE Risk Level: Moderate Risk Prophylaxis VTE Prophylaxis Ordered?: Yes Types of VTE Prophylaxis: TEDS Thigh High Location of Applied Device: Bilateral Lower Extremeties
--- NOTE | 2022-08-12 10:07 | EXP.HP ---
History of Present Illness *Admission Date: 08/11/22 *Reason for visit:: sob *History of present illness: this patient presented to the ed with sob - pt with recent admit for same issues - pt with sob and wheezing and confusion and dec adl- female presenting to the emergency department shortness of breath.? Symptoms started a few days ago, got worse overnight.? She feels like she is breathing fast, wheezing.? She suffers from COPD.? Continues to smoke tobacco.? She has been using her inhalers as prescribed.? Home oxygen, about 2 L.? Denies recent steroid or antibiotic use.? No chest pain.? No leg swelling.? No cough, fevers, chills.racing #1: ? ? ? Sinus tachycardia with rate of 129 beats per minutes.? QRS 81, QTc 366.? No ST segment elevation.? No arrhythmia. Medical Decision Narrative: In summary this is a 56-year-old female with history of COPD, oxygen dependent, presenting to the emergency department with wheezing and difficulty breathing.? Patient appears unwell, but nontoxic on arrival.? She is tachycardic.? Elevated respiratory rate.? Audible wheezing.? Will obtain CBC, CMP, chest x-ray, EKG, venous blood gas.? Patient given DuoNeb's and 125 mg IV Solu-Medrol. EKG shows sinus tachycardia. Chest x-ray shows a slightly worsening right-sided midlung opacity.? No other actionable findings.? This is the same site where she was treated for pneumonia with hospitalization last week. Laboratory results show elevated white count at 20,000.? Patient has been on steroids.? Other laboratory results are reassuring.? Renal function appropriate.? No anemia.? VBG shows no acidosis or CO2 retention. Patient given 1 g IV Rocephin and 500 mg azithromycin. On reassessment, patient is persistently tachycardic to the 120, 130s.? Her oxygen saturation is in the low 90s on 3 L by nasal cannula. Chart review shows that she was discharged from our hospital after treatment for COPD/ pneumonia 3 days ago (08/08/22).? She was discharged with prescription for clindamycin.? Recently completed ertapenem [id number] for tx of klebsiella. ? Follows with pulmonology, Dr. Mcrae.? Will continue clindamycin IV.? Dr. Gonzalez consulted to admit for Dr. Pineda [facility] 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 (Updated 08/12/22 @ 00:00 by Carol Ahmadi) Abnormal ECG Acute exacerbation of chronic obstructive airways disease HUGO (acute kidney injury) Anemia Anxiety Atypical chest pain Back Pain CAD (coronary artery disease) Carotid artery disease without cerebral infarction Cervical radiculopathy Cervical spondylosis with radiculopathy Chest pain Chronic headaches Congestive heart failure COPD (chronic obstructive pulmonary disease) COPD (chronic obstructive pulmonary disease) COPD (chronic obstructive pulmonary disease) Cough COVID-19 Depression Elevated erythrocyte sedimentation rate Falls Fatigue Fracture dislocation of joint HCV (hepatitis C virus) History of intravenous drug use in remission Hoarseness Insomnia Joint pain Joint pain of ankle and foot Left carpal tunnel syndrome Lipoma of abdominal wall LVH (left ventricular hypertrophy) Osteoporosis Osteoporosis without current pathological fracture Pain in metatarsus, bilateral Perimenopausal disorder Plantar fasciitis, bilateral Pneumonia due to COVID-19 virus Pneumonia due to other gram-negative bacteria Polysubstance abuse TOMY (renal artery stenosis) Renal insufficiency Respiratory failure Right arm pain Right leg pain Rotator cuff arthropathy of right shoulder Severe aortic regurgitation Skin abscess Syncope and collapse Tobacco abuse Tobacco use Unstable angina Surgical History History of arthroscopic knee surgery History of breast biopsy History of cancer surgery History of cardiac cath History of carpal tunnel release History of section History of colonoscopy History of coronary artery stent placement History of hernia repair History of hysterectom
--- NOTE | 2022-08-12 20:07 | PC.NURSE ---
Pt is A/ox4 she has been up in the chair, in the bed, and even sat in the wardrobe custodian station for a few hours today. She has been gettin gup and down to go to the bathroom multiple times. I removed her crawford she had pulled and had blood in her urine. Dr. Pineda was aware. She tolerated her regular diet today.
[2022-08-13] VITALS (7 sets, daily range): BP systolic 137–174; BP diastolic 86–93; PULSE 101–124; RESP 17–19; TEMP 36.4–37.1; O2SAT 91–96; BMI 24.3
--- NOTE | 2022-08-13 04:14 | PC.NURSE ---
pt continues to be restless t/o the night. no complaints of pain this shift. O2 sats in 90s on 4L NC. pt has a small skin tear on left forearm, dressing in place C/D/I. CB in reach
--- NOTE | 2022-08-13 08:50 | DIET.NUTRFU ---
Reviewed swallow study from 08/07/22 recommending MSOFT with chopped meats, alternate sips and solids, eat at slow rate and no straws with adjust orders and provide patient with some reminders/handouts
--- NOTE | 2022-08-13 09:06 | PC.NURSE ---
Patient refuses to wear heart monitor, keeps turning bed alarm off, refuses to wear chair alarm, and has taken oxygen off. Patient educated about risk factors for fall.
--- NOTE | 2022-08-13 09:11 | PC.NURSE ---
Patient to wear alarms and was walking around room. Patient fell and landed on her bottom. Patient skin checked and no open areas found on bottom or back. Charge nurse notified. Patient back in chair with chair alarm attached.
--- NOTE | 2022-08-13 09:23 | PC.NURSE ---
Called Primary care office, spoke to Velia. Was told Dr. Pineda was not back in office until after lunch. Asked if Velia would notify Dr. Valentin that patient had fallen straight down on her bottom. Patient did not hit her head or back and no lane were found on skin.
--- NOTE | 2022-08-13 09:35 | EXP.PULM.CON ---
History of Present Illness History of present illness: Ms. Rush is a 56-year-old female history of COPD multidrug-resistant pneumonia recently discharged from the hospital presented to the ER again today with slightly worsening respiratory distress along with continued cough and productive phlegm. Patient with significant improvement in his symptoms since presentation but denies any sick contacts. Shortness of breath worsens exertion relieved by taking rest and inhalers. No not associate with any fevers. Also admits symptoms at rest. [facility] 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 (Updated 08/13/22 @ 13:01 by Kraig Orourke MD) Abnormal ECG Acute exacerbation of chronic obstructive airways disease HUGO (acute kidney injury) Anemia Anxiety Atypical chest pain Back Pain Bilateral lower extremity edema CAD (coronary artery disease) Carotid artery disease without cerebral infarction Cervical radiculopathy Cervical spondylosis with radiculopathy Chest pain Chest pain Chronic headaches Congestive heart failure COPD (chronic obstructive pulmonary disease) COPD (chronic obstructive pulmonary disease) COPD (chronic obstructive pulmonary disease) Coronary artery disease Cough COVID-19 Depression Diastolic congestive heart failure Elevated erythrocyte sedimentation rate Falls Fatigue Fracture dislocation of joint HCV (hepatitis C virus) History of intravenous drug use in remission Hoarseness Insomnia Joint pain Joint pain of ankle and foot Left carpal tunnel syndrome Lipoma of abdominal wall LVH (left ventricular hypertrophy) Osteoporosis Osteoporosis without current pathological fracture Pain in metatarsus, bilateral Perimenopausal disorder Plantar fasciitis, bilateral Pneumonia Pneumonia due to COVID-19 virus Pneumonia due to other gram-negative bacteria Polysubstance abuse TOMY (renal artery stenosis) Recurrent bacterial pneumonia Renal insufficiency Respiratory failure Right arm pain Right leg pain Rotator cuff arthropathy of right shoulder Severe aortic regurgitation Skin abscess Syncope and collapse Tobacco abuse Tobacco use Unresolved pneumonia Unstable angina Surgical History History of arthroscopic knee surgery History of breast biopsy History of cancer surgery History of cardiac cath History of carpal tunnel release History of section History of colonoscopy History of coronary artery stent placement History of hernia repair History of hysterectomy History of ureter stent Hx of cholecystectomy Family History (Updated 08/11/22 @ 12:19 by Marisol Reynolds, RN) Other Family history of COPD (chronic obstructive pulmonary disease) Family history of anemia Family history of hyperlipidemia Family history of hypertension Social History (Updated 08/11/22 @ 14:47 by Marisol Reynolds, RN) Smoking Status: Current every day smoker tobacco type: cigarettes packs per day: 1 second hand exposure: No alcohol intake: never substance use type: painkillers current occupational status: disabled Travel in the last 8 weeks: None household members: friend(s) housing: house marital status: current occupational exposures/hazards: No caffeine: Yes Review of Systems Constitutional Constitutional: Reports body ache(s), Reports fatigue and Reports weakness Eyes Eyes: Denies eye discharge, Denies dry eyes, Denies irritation and Denies itchy eyes ENT Ears, Nose, Mouth, and Throat: Reports dizziness, Denies lip swelling, Denies throat swelling and Reports vertigo *Cardiovascular Cardiovascular: Reports dyspnea, Reports dyspnea on exertion and Reports leg edema *Respiratory Respiratory: Reports chest congestion, Reports cough, Reports dyspnea, Reports dyspnea on exertion, Reports excessive phlegm production and Reports wheezing *Gastrointestinal Gastrointestinal: Denies abdominal pain, Denies belching and Denies cramping *Musculoskeletal Mu
--- NOTE | 2022-08-13 11:13 | EXP.CARD.CON ---
History of Present Illness History of Present Illness Consult date: 08/13/22 Requesting physician: Chuck Pineda Consult reason: chest pain and shortness of breath Chief complaint: soa/chest pain History of present illness: This is a 56-year-old white female who presented to the emergency department complaints of shortness of breath. The patient had recently just been discharged from the hospital on August 08, 2022 for COPD and pneumonia. She was discharged on clindamycin. She represented with shortness of breath, wheezing and confusion. The patient was unable to do her ADLs at home secondary to her symptoms. The patient states that she was so short of breath which significantly worsened at nighttime. She states that she felt like she was breathing fast and her heart was racing. She states that this was associated with wheezing. The patient does have underlying COPD but continues to smoke. The patient remains tachycardic this morning. She does have audible wheezing noted. The patient states that when she has shortness of breath she also has some sharp pain in the left side of her chest. She states sometimes this radiates down her left arm. Her troponins are negative. Her most recent cardiac catheterization was in December 2020 which showed mild coronary artery disease. She still states that she feels very short of breath. It is worse with exertion. She has bilateral lower extremity edema. She states that this continues to worsen as well. She denies any fevers or chills. She denies any nausea, vomiting or diarrhea. She states that her shortness of breath is associated with orthopnea. [facility] 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 (Updated 08/13/22 @ 11:25 by Charla Milligan APRN) Abnormal ECG Acute exacerbation of chronic obstructive airways disease HUGO (acute kidney injury) Anemia Anxiety Atypical chest pain Back Pain Bilateral lower extremity edema CAD (coronary artery disease) Carotid artery disease without cerebral infarction Cervical radiculopathy Cervical spondylosis with radiculopathy Chest pain Chest pain Chronic headaches Congestive heart failure COPD (chronic obstructive pulmonary disease) COPD (chronic obstructive pulmonary disease) COPD (chronic obstructive pulmonary disease) Coronary artery disease Cough COVID-19 Depression Diastolic congestive heart failure Elevated erythrocyte sedimentation rate Falls Fatigue Fracture dislocation of joint HCV (hepatitis C virus) History of intravenous drug use in remission Hoarseness Insomnia Joint pain Joint pain of ankle and foot Left carpal tunnel syndrome Lipoma of abdominal wall LVH (left ventricular hypertrophy) Osteoporosis Osteoporosis without current pathological fracture Pain in metatarsus, bilateral Perimenopausal disorder Plantar fasciitis, bilateral Pneumonia due to COVID-19 virus Pneumonia due to other gram-negative bacteria Polysubstance abuse TOMY (renal artery stenosis) Renal insufficiency Respiratory failure Right arm pain Right leg pain Rotator cuff arthropathy of right shoulder Severe aortic regurgitation Skin abscess Syncope and collapse Tobacco abuse Tobacco use Unstable angina Surgical History History of arthroscopic knee surgery History of breast biopsy History of cancer surgery History of cardiac cath History of carpal tunnel release History of section History of colonoscopy History of coronary artery stent placement History of hernia repair History of hysterectomy History of ureter stent Hx of cholecystectomy Family History (Updated 08/11/22 @ 12:19 by Marisol Reynolds, YULISSA) Other Family history of COPD (chronic obstructive pulmonary disease) Family history of anemia Family history of hyperlipidemia Family history of hypertension Social History (Updated 08/11/22 @ 14:47 by Marisol Reynolds, YULISSA) Smoking Status: Current every day smoker tobacco type: cigarettes packs
--- NOTE | 2022-08-13 12:31 | PC.NURSE ---
rounded on patient. patient sitting up in chair, chair alarm in place. table within reach, call light within reach. no questions or concerns at this time. educated on use of call light. no needs voiced. encouraged her to ring out with any needs or concerns.
--- NOTE | 2022-08-13 15:16 | PC.NURSE ---
ordered afbs. verified with him that patient did not need to be in airborne precautions.
--- NOTE | 2022-08-13 16:17 | EXP.ACUTE.PN ---
Subjective *Date: 08/13/22 *Time: 08:15 Interval history: doing better at this time Medical Exam Vital signs and Labs for Last 24 Hours: Temp Pulse Resp BP Pulse Ox FiO2 98.3 F 109 H 18 174/92 H 92 L 36 08/13/22 15:44 08/13/22 15:44 08/13/22 15:44 08/13/22 15:44 08/13/22 15:44 08/12/22 18:53 I & O for Labs for Last 24 Hours: Intake & Output 08/11/22 08/12/22 08/13/22 08/14/22 11:59 11:59 11:59 11:59 Intake Total 480 / 480 480 / 480 120 / 120 Output Total 3700 / 3700 400 / 400 100 / 100 Balance -3220 / -3220 80 / 80 20 / 20 Weight 132 lb 130 lb 4.726 oz 132 lb 4.438 oz Microbiology Reports for the Last 24 Hours: Microbiology 08/13/22 10:10 Sputum - Expectorated Sputum - Final Not Reportable 08/13/22 10:10 Sputum - Expectorated Sputum - Final Not Reportable 08/13/22 10:10 Sputum - Expectorated Sputum - Final Not Reportable 08/13/22 10:10 Sputum - Expectorated Sputum - Final Not Reportable 08/13/22 10:10 Sputum - Expectorated Sputum - Final Not Reportable 08/13/22 10:10 Sputum - Expectorated Sputum - Final Not Reportable 08/13/22 10:10 Sputum - Expectorated Sputum - Final Not Reportable 08/13/22 10:10 Sputum - Expectorated Sputum - Final Not Reportable 08/12/22 10:10 Sputum - Expectorated Sputum Gram Stain - Final
--- NOTE | 2022-08-13 18:27 | PC.NURSE ---
Patient was moved to a different room after fall so door could be kept open to hear chair alarm better. Patient refuses to keep using call kim and still gets up and sets alarm off. New ultrasound IV obtained as old IV in hand was leaking profusely and fell out while trying to change dressing. Patient was stuck twice by myself before Fredy was able to use US. VS stable. Patient then stated she was calling a ride and leaving AMA.
--- NOTE | 2022-08-13 21:40 | PC.NURSE ---
pts bed alarm sounded and upon entering pts room she was standing at the bedside, and informed me that she had changed her mind about staying here, that she wants to go home. educated pt about risks of leaving the hospital and signing out against medical advice. pt refuses to stay and says her ride will be here in the next 30 mins
--- NOTE | 2022-08-15 13:48 | CARE MANAGER ---
Attempted to contact patient x2 related to hospital discharge. Left VM option. YULISSA Cortes
--- NOTE | 2022-09-26 13:56 | EXP.DC.SUM ---
General Admission date:: 08/11/22 Discharge date: 08/13/22 HPI HPI HPI: this patient presented to the ed with sob - pt with recent admit for same issues - pt with sob and wheezing and confusion and dec adl- female presenting to the emergency department shortness of breath.? Symptoms started a few days ago, got worse overnight.? She feels like she is breathing fast, wheezing.? She suffers from COPD.? Continues to smoke tobacco.? She has been using her inhalers as prescribed.? Home oxygen, about 2 L.? Denies recent steroid or antibiotic use.? No chest pain.? No leg swelling.? No cough, fevers, chills.racing #1: ? ? ? Sinus tachycardia with rate of 129 beats per minutes.? QRS 81, QTc 366.? No ST segment elevation.? No arrhythmia. Medical Decision Narrative: In summary this is a 56-year-old female with history of COPD, oxygen dependent, presenting to the emergency department with wheezing and difficulty breathing.? Patient appears unwell, but nontoxic on arrival.? She is tachycardic.? Elevated respiratory rate.? Audible wheezing.? Will obtain CBC, CMP, chest x-ray, EKG, venous blood gas.? Patient given DuoNeb's and 125 mg IV Solu-Medrol. EKG shows sinus tachycardia. Chest x-ray shows a slightly worsening right-sided midlung opacity.? No other actionable findings.? This is the same site where she was treated for pneumonia with hospitalization last week. Laboratory results show elevated white count at 20,000.? Patient has been on steroids.? Other laboratory results are reassuring.? Renal function appropriate.? No anemia.? VBG shows no acidosis or CO2 retention. Patient given 1 g IV Rocephin and 500 mg azithromycin. On reassessment, patient is persistently tachycardic to the 120, 130s.? Her oxygen saturation is in the low 90s on 3 L by nasal cannula. Chart review shows that she was discharged from our hospital after treatment for COPD/ pneumonia 3 days ago (08/08/22).? She was discharged with prescription for clindamycin.? Recently completed ertapenem [id number] for tx of klebsiella. ? Follows with pulmonology, Dr. Mcrae.? Will continue clindamycin IV.? Dr. Gonzalez consulted to admit for Dr. Pineda Exam Data for Last 24 hours Vital signs and Labs for Last 24 Hours: Temp Pulse Resp BP Pulse Ox FiO2 97.6 F 124 H 18 137/93 H 92 L 36 08/13/22 20:00 08/13/22 20:00 08/13/22 20:00 08/13/22 20:00 08/13/22 20:00 08/12/22 18:53 Constitutional Constitutional: no acute distress and chronically ill appearing Results Data Completed and Pending Labs on day of discharge: Preliminary micro results at discharge 08/13/22 10:10 - Preliminary Sputum - Expectorated Sputum DS: Diagnosis Discharge Diagnosis (1) Pneumonia: Status: Acute (2) Unresolved pneumonia: Status: Acute Meds Home Medications and Allergies Home Medications Medication Instructions Recorded Confirmed Type buprenorphine 8 mg-naloxone 2 mg 2 tab sublingual DAILY opioid use 03/22/21 09/26/22 History sublingual tablet disorder aspirin 81 mg tablet,delayed 81 mg PO DAILY Coronary artery 04/30/22 09/26/22 History release disease nicotine 21 mg/24 hr daily 21 mg transdermal DAILYP PRN 05/11/22 09/26/22 Rx transdermal patch Nicotine Cravings #30 patches albuterol sulfate 90 mcg/actuation 2 puff PO Q6H PRN shortness of 06/24/22 09/26/22 History aerosol inhaler air/wheezing rosuvastatin 5 mg tablet 5 mg PO DAILY hyperlipidemia 06/24/22 09/26/22 History ondansetron HCl 4 mg tablet 4 mg PO TIDP PRN Nausea 07/16/22 09/26/22 History bisoprolol fumarate 5 mg tablet 5 mg PO DAILY Hypertension 08/04/22 09/26/22 History calcium carbonate 600 mg-vitamin 1 tab PO DAILY Supplement 08/04/22 09/26/22 History D3 10 mcg (400 unit) tablet estradiol 1 mg tablet 1 mg PO DAILY HORMONE REPLACEMENT 08/04/22 09/26/22 History risperidone 2 mg tablet 2 mg PO HS Restless leg 08/04/22 09/26/22 History ipratropium 0.5 mg-albuterol 3 mg 3 ml inhalation QID PRN s
--- NOTE | 2022-09-26 14:02 | EXP.DC.SUM ---
General Admission date:: 08/11/22 Discharge date: 08/13/22 HPI HPI HPI: 56-year-old female with history of COPD, oxygen dependent, presenting to the emergency department with wheezing and difficulty breathing.? Patient appears unwell, but nontoxic on arrival.? She is tachycardic.? Elevated respiratory rate.? Audible wheezing.? Will obtain CBC, CMP, chest x-ray, EKG, venous blood gas.? Patient given DuoNeb's and 125 mg IV Solu-Medrol. Chart review shows that she was discharged from our hospital after treatment for COPD/ pneumonia 3 days ago (08/08/22).? She was discharged with prescription for clindamycin.? Recently completed ertapenem [id number] for tx of klebsiella. ? Follows with pulmonology, Dr. Mcrae.? Will continue clindamycin IV.? Dr. Gonzalez consulted to admit for Dr. Pineda Hospital Course Hospital Course Hospital Course: Cardiology has seen and recommends: Assessment and Plan All Dx:: Plan: 1.? The patient was admitted to the hospital with shortness of breath and lower extremity edema.? The patient has an elevated BNP.? She has known diastolic congestive heart failure.? The patient is likely having an exacerbation of this diastolic congestive heart failure secondary to her severe aortic insufficiency.? We will start her on Lasix 40 mg IV twice daily for diuresis. 2.? The patient has known severe aortic insufficiency.? She was on the transfer list back in July for transfer to [facility] for consideration of a TAVR.? However due to a bed issue at [facility] the patient was unable to be transferred.? She was supposed to be going to [facility] on an outpatient basis but has had multiple transportation issues and has not made it to be evaluated at [facility].? The patient was admitted here last week for similar symptoms and has now represented to the emergency department with worsening symptoms.? Dr. Gary at [facility] has been contacted and he agrees with transferring the patient to [facility] for further evaluation of her severe aortic insufficiency.? I have talked to Dr. Raymond who has accepted the patient and we are currently awaiting transfer to [facility] for further evaluation and treatment of her severe aortic insufficiency. 3.? We will hold her Plavix and aspirin for now as the patient is being considered for a TAVR once she is transferred to [facility]. 4.? The patient does have a history of coronary artery disease.? She has very mild disease.? She has a negative troponin.? No plans for invasive left cardiac catheterization at this time. 5.? Her blood pressure is acceptable. 6.? Her LDL goal is less than 55.? She is on a statin. 7.? She is tachycardic today with a heart rate around 115.? Dr. Silverio states that with severe aortic insufficiency a little tachycardia is acceptable and he does not want to restart her bisoprolol at this time. 8.? The patient does have a history of polysubstance use and is on Suboxone. 9.? The patient does have COPD.? She is likely also having a COPD exacerbation.? Will defer management this to her primary care team and pulmonology. 10.? Further recommendations will be made pending the patient's response to treatment.? As mentioned above we are currently awaiting transfer to [facility] for severe aortic insufficiency and consideration of TAVR. Pulmonary has seen and recommends: Plan #Community-acquired pneumonia: Current smoker greater than [id number] smoking.? COPD and bronchiectasis.? Previous history of multidrug-resistant pneumonia. Recent admitted to hospital for pneumonia, discharged on clindamycin to complete a 7-day course.? Sputum culture normal respiratory carlos. No FB samples noted on chart review from her most recent discharge. Chest x-ray on this admission appeared to be slightly worsening airspace disease,? right lower lobe. Patient was initiated on ceftriaxone and azithromycin on this admission. Previous history of multidrug-resistant o
== END 2022-08-13 22:27 | disposition left against medical advice (07) | DRG 291 ==
LOC: ER 10:54 → 2ND 12:22
PROVIDERS: Admitting Provider Internal Medicine Adolescent Medicine; Emergency Provider Emergency Medicine; PCP Emergency Medicine; Visit Provider Emergency Medicine
DX: I11.0 Hypertensive heart disease with heart failure (principal); I50.33 Acute on chronic diastolic (congestive) heart failure; J18.9 Pneumonia, unspecified organism; J47.0 Bronchiectasis with acute lower respiratory infection; I35.1 Nonrheumatic aortic (valve) insufficiency; Z99.81 Dependence on supplemental oxygen; Z86.16 Personal history of COVID-19; I25.10 Atherosclerotic heart disease of native coronary artery without angina pectoris; F17.210 Nicotine dependence, cigarettes, uncomplicated; M81.0 Age-related osteoporosis without current pathological fracture; I70.1 Atherosclerosis of renal artery; Z95.5 Presence of coronary angioplasty implant and graft; E78.2 Mixed hyperlipidemia; I65.29 Occlusion and stenosis of unspecified carotid artery
CPT/HCPCS: 51702; 71045; 80048; 80053; 80076; 82803; 83605; 83880; 84145; 84484; 85007; 85025; 85651; 86140; 87040; 87070; 87116; 87205; 87206; 93005; 94640; 94760; 99283; 99285; C9803; G0378; J0456; J0574; J0696; J1335; U0003; U0005

== ENCOUNTER 2022-08-14 20:02 | Emergency (ER) | payer OTHER, SELFPAY ==
[2022-08-14] VITALS (8 sets, daily range): BP systolic 120–180; BP diastolic 65–94; PULSE 100–120; RESP 16–18; TEMP 36.6–36.7; O2SAT 96–99; BMI 24.1
--- NOTE | 2022-08-14 20:10 | XR_ITS ---
PROCEDURE INFORMATION: Exam: XR Chest Exam date and time: 08/14/2022 8:38 PM Age: 56 years old Clinical indication: Shortness of breath; Additional info: SOA TECHNIQUE: Imaging protocol: Radiologic exam of the chest. Views: 1 view. COMPARISON: CR XR CHEST PORTABLE 08/11/2022 8:18 AM FINDINGS: Lungs: Improved aeration at the right lung base with minimal residual streaky opacity. Pleural spaces: No pneumothorax. Heart/Mediastinum: No cardiomegaly. Bones/joints: No acute abnormality. IMPRESSION: Improved aeration at the right lung base with minimal residual streaky opacity.
--- NOTE | 2022-08-14 20:10 | ECG_ITS ---
APPROVED REPORT Exam: Resting ECG HR:119 bpm ECG Measurements Heart Rate 119 AXES MN 118 P 67 QRSd 84 QRS 71 QT 312 T 58 QTc 383 Conclusion SINUS TACHYCARDIA WITH SHORT MN INTERVAL RIGHT ATRIAL ENLARGEMENT [0.3mV P-WAVE] POSSIBLE LEFT ATRIAL ENLARGEMENT [-0.1mV P-WAVE IN V1/V2] POSSIBLE LEFT VENTRICULAR HYPERTROPHY [VOLTAGE CRITERIA PLUS LAE OR QRS WIDENING] ABNORMAL ECG UNCONFIRMED REPORT Electronically signed by : Evaristo Gonzalez MD 08/15/2022 07:14:50
--- NOTE | 2022-08-14 20:15 | PC.NURSE ---
Unsuccessful attempts x 2 to obtain IV access. aware.
[2022-08-14 20:44] LABS: Basophils # 0.3 K/mm3 (0-0.2); Basophils % 2.1 % (0.1-2.0); Eosinophils # 0.2 K/mm3 (0.0-0.4); Hematocrit 42.5 % (37.0-47.0); Hemoglobin 13.2 g/dL (12.2-16.2); Lymphocytes # 2.3 K/mm3 (0.7-4.5); Lymphocytes % 19.4 % (10-50); Mean Corpuscular Hemoglobin 25.3 pg (27.0-31.2); Mean Corpuscular Volume 81.5 fl (81-99); Mean Platelet Volume 8.5 fl (7.4-10.4); Monocytes # 0.8 K/mm3 (0.1-1.0); Neutrophils # 8.2 K/mm3 (1.8-7.8); Neutrophils % 69.6 % (37.0-80.0); Platelet Count 410 K/mm3 (142-424); Red Blood Count 5.22 M/mm3 (4.20-5.40); Red Cell Distribution Width 19.2 % (11.5-17.5); White Blood Count 11.8 K/mm3 (4.8-10.8)
[2022-08-14 20:48] LABS: Blood Urea Nitrogen 17 mg/dl (7-17); Calcium 8.4 mg/dl (8.4-10.2); Carbon Dioxide 23 mmol/L (22.0-30.0); Chloride 104 mmol/L (98-107); Creatinine Clearance Estimated 60 mL/min (50-200); Estimated Glomerular Filt Rate 58 ml/min (>60); GFR (African American) 70 ML/MIN (>60); Glucose 70 mg/dl (74-100); Sodium 142 mmol/L (136-145)
[2022-08-14 21:00] LABS: Troponin I 0.02 ng/ml (0.00-0.034)
--- NOTE | 2022-08-14 22:58 | HMH.EDGENADL ---
Discharge Plan Disposition Patient Disposition: Home, Self-Care Condition: Fair Prescriptions Prescriptions: No Action buprenorphine-naloxone 8-2 mg tablet, sublingual 2 tab SL DAILY ondansetron HCl 4 mg tablet 4 mg PO TIDP PRN (Reason: Nausea) nicotine 21 MG/PATCH patch 24 hour 21 mg TD DAILYP PRN (Reason: Nicotine Cravings) Qty: 30 0RF tizanidine 4 MG tablet 4 mg PO TIDP PRN (Reason: muscle spasms) famotidine 40 MG tablet 40 mg PO DAILY alendronate 70 MG tablet 70 mg PO WEEKLY furosemide 20 MG tablet 20 mg PO DAILY albuterol sulfate 8.5 GM HFA aerosol inhaler 2 puff PO Q6H rosuvastatin 5 MG tablet 5 mg PO DAILY megestrol 625 MG/5 ML suspension 625 mg PO DAILYP PRN (Reason: appetite) albuterol sulfate 0.63 MG/3 ML solution for nebulization 3 ml IH QIDP PRN (Reason: Shortness Of Breath) bisoprolol fumarate 5 mg tablet 5 mg PO DAILY bupropion HCl 75 mg tablet 75 mg PO BID calcium carbonate-vitamin D3 600 mg-10 mcg (400 unit) tablet 1 tab PO DAILY clonazepam 0.5 mg tablet 0.5 mg PO TID escitalopram oxalate 20 mg tablet 20 mg PO DAILY estradiol 1 mg tablet 1 mg PO DAILY gabapentin 800 mg tablet 800 mg PO TID Trelegy Ellipta 100-62.5-25 mcg blister with device 1 inh inhalation DAILY risperidone 2 mg tablet 2 mg PO HS docusate sodium 100 MG capsule 100 mg PO DAILYP PRN (Reason: Constipation) clopidogrel 75 MG tablet 75 mg PO DAILY aspirin 81 MG tablet,delayed release (DR/EC) 81 mg PO DAILY clindamycin HCl 300 mg capsule 300 mg PO TID Referrals Follow up/Referrals: Provider,Referral, MD [Primary Care Provider] - See instructions Activity Restrictions/Add. Instructions Additional Instructions/Restrictions: You have been evaluated for cough, shortness of breath, likely due to persistent COPD exacerbation. Please continue taking antibiotics and steroids as prescribed. Avoid tobacco smoke. Follow-up with your primary care doctor today as scheduled. Return to the emergency department at once for any new or worsening symptoms, difficulty breathing, chest pain, other concerns. Clinical Impressions Clinical Impression: COPD exacerbation Instructions Patient Instructions: DI for Chronic Obstructive Pulmonary Disease Discharge ED Provider: Flower,Sue General Adult HPI General Chief complaint: Syncope Stated complaint: Synocope Time Seen by Provider: 08/14/22 20:30 Mode of Arrival: EMS Source of Information: Patient Limitations: No Limitations Description of Symptoms (Recalled from ER Triage Doc. by RN): EMS reports pt called EMS w/ c/o SOA. When EMS arrived pt reported that she has been passing out and has c/o general fatigue. Pt states she is waiting for a bed at for her heart. Pt recently signed out AMA from this ER. History of Present Illness HPI narrative: 56-year-old female presenting to the emergency department shortness of breath, passing out. Symptoms have been going on all day today. She signed out from the hospital AGAINST MEDICAL ADVICE. Since then, she says she is felt very weak, tired, fatigued. She is coughing frequently. He was using her home 2 L by nasal cannula. Is still taking antibiotics as prescribed. Denies fevers, chills, nausea, vomiting. She continues to smoke cigarettes. Says she was coughing so hard today that she felt like she might pass out. No preceding chest pain or palpitations. Related Data Home Medications Medication Instructions Recorded Confirmed buprenorphine 8 mg-naloxone 2 mg 2 tab sublingual DAILY drug abuse 03/22/21 08/15/22 sublingual tablet treatment docusate sodium 100 mg capsule 100 mg PO DAILYP PRN Constipation 03/04/22 08/15/22 aspirin 81 mg tablet,delayed 81 mg PO DAILY Heart disease 04/30/22 08/15/22 release clopidogrel 75 mg tablet 75 mg PO DAILY platelet inhibitor 04/30/22
[2022-08-15 00:39] LABS: Troponin I 0.02 ng/ml (0.00-0.034)
--- NOTE | 2022-08-15 01:15 | PC.NURSE ---
Pt assisted via w/c to bathroom
--- NOTE | 2022-08-15 01:36 | PC.NURSE ---
Pt requested something to drink. Pt given diet Pepsi
== END 2022-08-15 01:53 | disposition home or self-care (01) ==
PROVIDERS: Emergency Provider Emergency Medicine
DX: J44.1 Chronic obstructive pulmonary disease with (acute) exacerbation (principal); Z99.81 Dependence on supplemental oxygen; F17.210 Nicotine dependence, cigarettes, uncomplicated
CPT/HCPCS: 71045; 80048; 84484; 85025; 93005; 99284

== ENCOUNTER 2022-08-15 19:25 | Observation (INO) | payer OTHER, SELFPAY ==
[2022-08-15 19:25] VITALS: BP 149/88; PULSE 127; RESP 21; TEMP 36.6; O2SAT 96; BMI 24.1
--- NOTE | 2022-08-15 19:58 | XR_ITS ---
PROCEDURE INFORMATION: Exam: XR Chest Exam date and time: 08/15/22 08:13 PM Age: 56 years old Clinical indication: Shortness of breath; Additional info: Short of breath TECHNIQUE: Imaging protocol: Radiologic exam of the chest. Views: 1 view. COMPARISON: CR XR CHEST PORTABLE 08/14/22 08:38 PM FINDINGS: Lungs: Unremarkable. No consolidation. Pleural spaces: Unremarkable. No pleural effusion. No pneumothorax. Heart/Mediastinum: Unremarkable. No cardiomegaly. Bones/joints: Unremarkable. IMPRESSION: No acute findings.
--- NOTE | 2022-08-15 20:03 | PC.NURSE ---
RAD at BS
--- NOTE | 2022-08-15 20:05 | HMH.EDGENADL ---
Discharge Plan Disposition Patient Disposition: Admitted as Observation Condition: Fair Chief Complaint: Shortness of Breath/Dyspnea Prescriptions Prescriptions: No Action buprenorphine-naloxone 8-2 mg tablet, sublingual 2 tab SL DAILY ondansetron HCl 4 mg tablet 4 mg PO TIDP PRN (Reason: Nausea) fluconazole [Diflucan] 50 mg tablet 50 mg PO DAILY 5 Days Qty: 5 0RF nicotine 21 MG/PATCH patch 24 hour 21 mg TD DAILYP PRN (Reason: Nicotine Cravings) Qty: 30 0RF tizanidine 4 MG tablet 4 mg PO TIDP PRN (Reason: muscle spasms) famotidine 40 MG tablet 40 mg PO DAILY alendronate 70 MG tablet 70 mg PO WEEKLY furosemide 20 MG tablet 20 mg PO DAILY albuterol sulfate 8.5 GM HFA aerosol inhaler 2 puff PO Q6H rosuvastatin 5 MG tablet 5 mg PO DAILY megestrol 625 MG/5 ML suspension 625 mg PO DAILYP PRN (Reason: appetite) albuterol sulfate 0.63 MG/3 ML solution for nebulization 3 ml IH QIDP PRN (Reason: Shortness Of Breath) bisoprolol fumarate 5 mg tablet 5 mg PO DAILY bupropion HCl 75 mg tablet 75 mg PO BID calcium carbonate-vitamin D3 600 mg-10 mcg (400 unit) tablet 1 tab PO DAILY clonazepam 0.5 mg tablet 0.5 mg PO TID escitalopram oxalate 20 mg tablet 20 mg PO DAILY estradiol 1 mg tablet 1 mg PO DAILY gabapentin 800 mg tablet 800 mg PO TID Trelegy Ellipta 100-62.5-25 mcg blister with device 1 inh inhalation DAILY risperidone 2 mg tablet 2 mg PO HS docusate sodium 100 MG capsule 100 mg PO DAILYP PRN (Reason: Constipation) clopidogrel 75 MG tablet 75 mg PO DAILY aspirin 81 MG tablet,delayed release (DR/EC) 81 mg PO DAILY clindamycin HCl 300 mg capsule 300 mg PO TID Referrals Follow up/Referrals: Chuck Pineda MD [Primary Care Provider] - See instructions Clinical Impressions Clinical Impression: Acute exacerbation of chronic obstructive pulmonary disease (COPD), Somnolence Instructions Patient Instructions: DI for Chronic Obstructive Pulmonary Disease Discharge ED Provider: Sue Feldman Adult [facility] General Chief complaint: Shortness of Breath/Dyspnea Stated complaint: SOA Time Seen by Provider: 08/15/22 20:05 Mode of Arrival: EMS Source of Information: Patient Limitations: No Limitations History of Present Illness HPI narrative: 56-year-old male presenting to the emergency department with cough and shortness of breath. This evening, she was at home when she fell like she is having difficulty breathing. Coughing frequently. She called 911. On their arrival, she did not have her oxygen on. Appeared to be in respiratory distress. She says she is taking antibiotics and steroids as prescribed. Has been to our emergency department multiple times over the last week. Was hospitalized but left AGAINST MEDICAL ADVICE. Has been treated for COPD exacerbation and pneumonia. Denies fevers, chills, nausea, vomiting. No chest pain Related Data Home Medications Medication Instructions Recorded Confirmed buprenorphine 8 mg-naloxone 2 mg 2 tab sublingual DAILY drug abuse 03/22/21 08/15/22 sublingual tablet treatment docusate sodium 100 mg capsule 100 mg PO DAILYP PRN Constipation 03/04/22 08/15/22 aspirin 81 mg tablet,delayed 81 mg PO DAILY Heart disease 04/30/22 08/15/22 release clopidogrel 75 mg tablet 75 mg PO DAILY platelet inhibitor 04/30/22 08/15/22 albuterol sulfate 0.63 mg/3 mL 3 ml inhalation QIDP PRN Shortness 06/24/22 08/15/22 solution for nebulization Of Breath albuterol sulfate 90 mcg/actuation 2 puff PO Q6H Asthma 06/24/22 08/15/22 aerosol inhaler alendronate 70 mg tablet 70 mg PO WEEKLY osteoporosis 06/24/22 08/15/22 prevention famotidine 40 mg tablet 40 mg PO DAILY acid reflux 06/24/22 08/15/22 furosemide 20 mg tablet 20 mg PO DAILY Edema 06/24/22 08/15/22 megestrol 625 mg/5 mL (125 mg/mL) 625 mg PO DAILYP PRN appet
[2022-08-15 21:11] LABS: Basophils # 0.1 K/mm3 (0-0.2); Basophils % 0.8 % (0.1-2.0); Eosinophils # 0.4 K/mm3 (0.0-0.4); Eosinophils % 2.6 % (0.1-12.0); Hematocrit 34.8 % (37.0-47.0); Hemoglobin 10.7 g/dL (12.2-16.2); Lymphocytes # 2.3 K/mm3 (0.7-4.5); Lymphocytes % 14.9 % (10-50); Mean Corpuscular HGB Conc 30.7 g/dL (31.8-35.4); Mean Corpuscular Hemoglobin 24.9 pg (27.0-31.2); Mean Corpuscular Volume 81.2 fl (81-99); Mean Platelet Volume 8.2 fl (7.4-10.4); Monocytes # 0.7 K/mm3 (0.1-1.0); Monocytes % 4.8 % (1.7-9.3); Neutrophils # 11.6 K/mm3 (1.8-7.8); Platelet Count 524 K/mm3 (142-424); Red Blood Count 4.28 M/mm3 (4.20-5.40); Red Cell Distribution Width 19.6 % (11.5-17.5); White Blood Count 15.1 K/mm3 (4.8-10.8)
[2022-08-15 21:15] LABS: MANUAL DIFFERENTIAL MANUAL DIFFERENTIAL (MANUAL DIFF)
[2022-08-15 21:21] LABS: Alanine Aminotransferase 28 U/L (12-78); Albumin Level 3.9 g/dl (3.5-5.0); Alkaline Phosphatase 83 U/L (38-126); Anion Gap 15.7 mEq/L (5-15); Aspartate Amino Transferase 80 U/L (14-36); Bilirubin,Total 0.2 mg/dl (0.2-1.3); Blood Urea Nitrogen 20 mg/dl (7-17); Calcium 9.1 mg/dl (8.4-10.2); Carbon Dioxide 28 mmol/L (22.0-30.0); Chloride 103 mmol/L (98-107); Creatinine Clearance Estimated 60 mL/min (50-200); Estimated Glomerular Filt Rate 58 ml/min (>60); GFR (African American) 70 ML/MIN (>60); Glucose 101 mg/dl (74-100); Potassium 3.7 mmoL/L (3.5-5.1); Sodium 143 mmol/L (136-145); Total Protein,Serum 7.9 g/dl (6.3-8.2)
[2022-08-15 21:22] LABS: Lactic Acid 1.2 mmol/L (0.7-2.1)
[2022-08-15 21:27] LABS: VBG Base Excess -0.8 mmol/L (-2.4-2.3); VBG HCO3 24.7 mmol/L (23-30); VBG Oxygen Saturation 93.3 % (50-70); VBG PH 7.36 mmol/L (7.31-7.41); VBG PO2 77.6 mmol/L (28-40); VBG Total CO2 26.1 mmol/L (23-27)
[2022-08-15 21:30] VITALS: BP 176/100; PULSE 129; RESP 26; O2SAT 92
--- NOTE | 2022-08-15 21:33 | ECG_ITS ---
APPROVED REPORT Exam: Resting ECG HR:124 bpm ECG Measurements Heart Rate 124 AXES DC 115 P 69 QRSd 81 QRS 66 QT 324 T 59 QTc 398 Conclusion SINUS TACHYCARDIA WITH SHORT DC INTERVAL MODERATE VOLTAGE CRITERIA FOR LVH, CONSIDER NORMAL VARIANT [MEETS CRITERIA IN ONE OF: R(aVL), S(V1), R(V5), R(V5/V6)+S(V1)] NONSPECIFIC ST & T-WAVE ABNORMALITY ABNORMAL RHYTHM ECG UNCONFIRMED REPORT Electronically signed by : Evaristo Gonzalez MD 08/16/2022 19:29:05
[2022-08-15 21:38] LABS: Procalcitonin 0.138 ng/mL (0.0-2.0)
[2022-08-15 21:49] LABS: Eosinophils % 1 % (0-3); Lymphocytes % 14 % (10-50); Monocytes % 5 % (2-9); Neutrophils % 80 % (42-76); Total Cells Counted 100
[2022-08-15 21:50] LABS: Hypochromasia 1+; Ovalocytes 1+; Platelet Estimate Normal
[2022-08-15 22:00] VITALS: BP 153/96; PULSE 121; RESP 21; O2SAT 99
--- NOTE | 2022-08-15 22:24 | PC.NURSE ---
Pt repositioned for comfort. Diet pepsi given per request. No other needs or complaints at this time.
[2022-08-15 22:30] VITALS: BP 159/102; PULSE 121; RESP 25; O2SAT 97
[2022-08-15 23:01] VITALS: BP 184/106; RESP 25; O2SAT 97
[2022-08-15 23:30] VITALS: BP 174/100; PULSE 124; RESP 26; O2SAT 94
[2022-08-16] VITALS (11 sets, daily range): BP systolic 129–163; BP diastolic 74–101; PULSE 72–124; RESP 16–30; TEMP 36.4–37; O2SAT 93–98; BMI 21.2
--- NOTE | 2022-08-16 02:18 | PC.NURSE ---
DR ALMONTE NOTIFIED PT UNABLE TO TAKE ORAL MEDS AT THIS TIME WILL ADMINISTER ONCE PT IS AWAKE AND ABLE TO STAY AWAKE
--- NOTE | 2022-08-16 03:19 | PC.NURSE ---
PT ARRIVED TO FLOOR VIA W/C @ [id number]
--- NOTE | 2022-08-16 04:21 | PC.NURSE ---
Addendum entered by Michelle Vazquez RN 08/16/22 05:34: bed alarm on, fall risk bracelet on, and falling star placed on door Addendum entered by Michelle Vazquez RN 08/16/22 04:26: pt on 1.5LNC with sats mid-nineties, pt has loose rattle can hear at all times and doesn't clear with coughing or using incentive spirometer (pt unable to really use currently due to lethargy), pt's lung sounds very rhonchorous throughout, pt's respirations labored and shallow but seems to be resting well Original Note: pt very lethargic and drooling on self upon arrival, pt able to stand and pivot with 2 assists to bed from wheelchair but nodding off and delayed responses when asking questions/completing admission paperwork, pt attempted to use bedpan without success, pt finally able to wake up enough to swallow pills CLOTH FOLDER HAND brought up but then pt went right back to sleep after taking pills, pt asked about meds and informed pt 0430 in am that routine meds will be given in the am on day shift, call light within reach
--- NOTE | 2022-08-16 07:39 | HMH.PHAINT1 ---
Pharmacy Intervention Comments: MEDICATION RECONCILIATION COMPLETED ON PATIENT USING EXTERNAL FILL HISTORY FROM PHARMACY AND DISCHARGE SUMMARY FROM PREVIOUS ADMISSION. -RADHA COLLINS, SARITHAD
--- NOTE | 2022-08-16 07:40 | P.CONPHA_ITS ---
[facility] Pharmacy VTE Monitoring Patient Demographics Admission date: 08/16/22 Report Date: 08/16/22 Time: 07:40 Patient Allergies atorvastatin Adverse Reaction (Intermediate, Verified 07/20/22 11:34) myalgia aspirin [ASPIRIN] Adverse Reaction (Unknown, Verified 07/20/22 11:34) codeine [CODEINE] Adverse Reaction (Unknown, Verified 07/20/22 11:34) propoxyphene [PROPOXYPHENE] Adverse Reaction (Unknown, Verified 07/20/22 11:34) tramadol [TRAMADOL] Adverse Reaction (Unknown, Verified 07/20/22 11:34) Height: 1.57 m Weight: 52.248 kg Current Active Problems (Updated 08/16/22 @ 01:21 by Sue Feldman DO) Acute exacerbation of chronic obstructive pulmonary disease (COPD) (Acute) Somnolence (Acute) VTE Risk Labs: VTE Related Lab Results Hgb 10.7 g/dL (12.2-16.2) L 08/15/22 21:02 Hct 34.8 % (37.0-47.0) L 08/15/22 21:02 Plt Count 524 K/mm3 (142-424) H D 08/15/22 21:02 BUN 20 mg/dl (7-17) H 08/15/22 21:02 Creatinine 1.00 mg/dl (0.52-1.04) 08/15/22 21:02 Estimated Creat Clear 60 mL/min (50-200) 08/15/22 21:02 Prophylaxis VTE Prophylaxis Ordered?: Yes Types of VTE Prophylaxis: TEDS Knee High Location of Applied Device: Bilateral Lower Extremeties
[2022-08-16 07:49] LABS: Coronavirus 19, PCR Not Detected (NotDetected); Influenza A, PCR Not Detected (NotDetected); Influenza B, PCR Not Detected (NotDetected)
--- NOTE | 2022-08-16 08:42 | XR_ITS ---
FINAL REPORT CLINICAL HISTORY: cough - copd COMPARISON: 08/15/2022 FINDINGS: Two views of the chest were obtained. The heart size and pulmonary vascularity are within normal limits. The mediastinum is normal. There are worsening right basilar opacities which may represent atelectasis or pneumonia There is no pneumothorax. The bony thorax is intact. IMPRESSION: Worsening right basilar opacities may represent atelectasis or pneumonia. Reviewed, Interpreted and Dictated by Edward Espinoza III, MD Transcribed by Sandra Obrien Authenticated and [facility]
--- NOTE | 2022-08-16 09:46 | EXP.PULM.CON ---
History of Present Illness History of present illness: Ms. Rush is a 56-year-old female history of multidrug-resistant pneumonia has been noncompliant with her treatment recently left AMA presented to hospital with worsening respiratory's along with cough and productive phlegm. Shortness of breath chronic, gradually getting worse. Assist with cough and productive phlegm. Denies any chest pain. Complains of generalized body aches. PFSH PFS 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 Abnormal ECG Acute exacerbation of chronic obstructive airways disease HUGO (acute kidney injury) Anemia Anxiety Atypical chest pain Back Pain Bilateral lower extremity edema CAD (coronary artery disease) Carotid artery disease without cerebral infarction Cervical radiculopathy Cervical spondylosis with radiculopathy Chest pain Chest pain Chronic headaches Congestive heart failure COPD (chronic obstructive pulmonary disease) COPD (chronic obstructive pulmonary disease) COPD (chronic obstructive pulmonary disease) Coronary artery disease Cough COVID-19 Depression Diastolic congestive heart failure Elevated erythrocyte sedimentation rate Falls Fatigue Fracture dislocation of joint HCV (hepatitis C virus) History of intravenous drug use in remission Hoarseness Insomnia Joint pain Joint pain of ankle and foot Left carpal tunnel syndrome Lipoma of abdominal wall LVH (left ventricular hypertrophy) Osteoporosis Osteoporosis without current pathological fracture Pain in metatarsus, bilateral Perimenopausal disorder Plantar fasciitis, bilateral Pneumonia Pneumonia due to COVID-19 virus Pneumonia due to other gram-negative bacteria Polysubstance abuse TOMY (renal artery stenosis) Recurrent bacterial pneumonia Renal insufficiency Respiratory failure Right arm pain Right leg pain Rotator cuff arthropathy of right shoulder Severe aortic regurgitation Skin abscess Syncope and collapse Tobacco abuse Tobacco use Unresolved pneumonia Unstable angina Surgical History History of arthroscopic knee surgery History of breast biopsy History of cancer surgery History of cardiac cath History of carpal tunnel release History of section History of colonoscopy History of coronary artery stent placement History of hernia repair History of hysterectomy History of ureter stent Hx of cholecystectomy Family History Other Family history of COPD (chronic obstructive pulmonary disease) Family history of anemia Family history of hyperlipidemia Family history of hypertension Social History (Updated 08/16/22 @ 03:34 by Michelle Vazquez RN) Smoking Status: Current every day smoker tobacco type: cigarettes packs per day: 1 second hand exposure: No alcohol intake: never substance use type: painkillers current occupational status: disabled Travel in the last 8 weeks: None household members: friend(s) housing: house marital status: current occupational exposures/hazards: No caffeine: Yes Review of Systems Constitutional Constitutional: Reports fatigue, Denies headache(s) and Reports lethargy Eyes Eyes: Denies eye discharge, Denies dry eyes, Denies irritation and Denies itchy eyes ENT Ears, Nose, Mouth, and Throat: Denies dizziness, Denies headache(s), Denies lip swelling and Denies throat swelling *Cardiovascular Cardiovascular: Reports dyspnea, Reports dyspnea on exertion and Reports leg edema *Respiratory Respiratory: Reports chest congestion, Reports cough, Reports dyspnea, Reports dyspnea on exertion, Reports excessive phlegm production, Denies hemoptysis, Denies pain on inspiration, Denies pain with cough and Reports wheezing *Gastrointestinal Gastrointestinal: Denies abdominal pain, Denies belching and Denies cramping *Musculoskeletal Musculoskeletal: Reports back pa
--- NOTE | 2022-08-16 09:55 | EXP.HPDC ---
General Admission date:: 08/16/22 Discharge date: 08/16/22 *Admission Date: 08/16/22 *Chief complaint: Shortness of breath *History of present illness: 56-year-old male patient presented to the [facility] emergency department via EMS with reports of shortness of breath and increasing cough. She reports she was at home and she started having breathing difficulties with increased coughing and activated EMS. When EMS arrived they stated she did not have her oxygen on and was in respiratory distress. She does report she is taking her antibiotics and steroids as prescribed from last [facility] admission and left AMA 2 days prior. While inpatient and she was treated for COPD exacerbation and pneumonia. She denies any fever/chills/body aches, no nausea/vomiting/diarrhea, and has taste and smell. [facility] 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 Abnormal ECG Acute exacerbation of chronic obstructive airways disease HUGO (acute kidney injury) Anemia Anxiety Atypical chest pain Back Pain Bilateral lower extremity edema CAD (coronary artery disease) Carotid artery disease without cerebral infarction Cervical radiculopathy Cervical spondylosis with radiculopathy Chest pain Chest pain Chronic headaches Congestive heart failure COPD (chronic obstructive pulmonary disease) COPD (chronic obstructive pulmonary disease) COPD (chronic obstructive pulmonary disease) Coronary artery disease Cough COVID-19 Depression Diastolic congestive heart failure Elevated erythrocyte sedimentation rate Falls Fatigue Fracture dislocation of joint HCV (hepatitis C virus) History of intravenous drug use in remission Hoarseness Insomnia Joint pain Joint pain of ankle and foot Left carpal tunnel syndrome Lipoma of abdominal wall LVH (left ventricular hypertrophy) Osteoporosis Osteoporosis without current pathological fracture Pain in metatarsus, bilateral Perimenopausal disorder Plantar fasciitis, bilateral Pneumonia Pneumonia due to COVID-19 virus Pneumonia due to other gram-negative bacteria Polysubstance abuse TOMY (renal artery stenosis) Recurrent bacterial pneumonia Renal insufficiency Respiratory failure Right arm pain Right leg pain Rotator cuff arthropathy of right shoulder Severe aortic regurgitation Skin abscess Syncope and collapse Tobacco abuse Tobacco use Unresolved pneumonia Unstable angina Surgical History History of arthroscopic knee surgery History of breast biopsy History of cancer surgery History of cardiac cath History of carpal tunnel release History of section History of colonoscopy History of coronary artery stent placement History of hernia repair History of hysterectomy History of ureter stent Hx of cholecystectomy Family History Other Family history of COPD (chronic obstructive pulmonary disease) Family history of anemia Family history of hyperlipidemia Family history of hypertension Social History (Updated 08/16/22 @ 03:34 by Michelle Vazquez RN) Smoking Status: Current every day smoker tobacco type: cigarettes packs per day: 1 second hand exposure: No alcohol intake: never substance use type: painkillers current occupational status: disabled Travel in the last 8 weeks: None household members: friend(s) housing: house marital status: current occupational exposures/hazards: No caffeine: Yes Review of Systems Constitutional Constitutional: Reports system reviewed and no additional complaints, except as documented, Denies excessive sweating and Denies headache(s) Eyes Eyes: Reports system reviewed and no additional complaints, except as documented, Denies blurry vision and Denies dry eyes ENT Ears, Nose, Mouth, and Throat: Reports system reviewed and no additional complaints, excep
--- NOTE | 2022-08-16 09:56 | DIET.NUTRFU ---
updated diet from previous admit from KNOWLEDGE MANAGER recommendations- MSOFT chopped with thin liquids and no straws. KNOWLEDGE MANAGER also encouraged to eat slow and alternate sips and solids. Pateint was educated on diet and handouts provided prior to AMA last admit. Upon visit she had straws in her drinks but claimed she was not using them. Updated date and notified hospital nursing assistant about straw recommendations
--- NOTE | 2022-08-16 13:02 | PC.NURSE ---
patient easily arousable, but has been sleeping. did note that md note mentioned steroids upon calling dr barron, he stated he would send levaquin and steroids to hometown pharmacy through the office. educated patient and family on this. no further concerns at that time
--- NOTE | 2022-08-20 14:05 | CARE MANAGER ---
Called [facility] to discuss post discharge status. Patient states that she is taking her medication and is waiting for a bed at for surgery . She was inquiring about services, but unfortunately she has medicaid. We are unable to find an agency that takes medicaid in this area, at this time. No other needs voiced at this time.
== END 2022-08-16 13:00 | disposition home or self-care (01) ==
LOC: ER 08-16 01:21 → 2ND 08-16 02:06
PROVIDERS: Admitting Provider Internal Medicine Adolescent Medicine; Emergency Provider Emergency Medicine; PCP Emergency Medicine; Visit Provider Emergency Medicine
DX: J18.9 Pneumonia, unspecified organism (principal); J96.21 Acute and chronic respiratory failure with hypoxia; J44.9 Chronic obstructive pulmonary disease, unspecified; I25.10 Atherosclerotic heart disease of native coronary artery without angina pectoris; Z20.822 Contact with and (suspected) exposure to COVID-19; Z86.16 Personal history of COVID-19; Z79.899 Other long term (current) drug therapy; I10 Essential (primary) hypertension
CPT/HCPCS: 71045; 71046; 80053; 82803; 83605; 84145; 85007; 85025; 93005; 94640; 94760; 99285; C9803; G0378; J0574; U0003; U0005

== ENCOUNTER → 2022-08-29 11:00 | Outpatient (CLI) | payer OTHER, SELFPAY ==
[2022-08-29 15:40] LABS: Barbiturates Screen,Urine Negative ng/ml (<200); Benzodiazepines Screen,Urine Negative ng/ml (<200)
[2022-08-29 15:41] LABS: Amphetamine/Metha Screen,Urine Negative ng/ml (<1000)
[2022-08-29 15:42] LABS: Cannabinoid Screen,Urine Negative ng/ml (<50); Cocaine Screen,Urine Negative ng/ml (<300)
[2022-08-29 15:43] LABS: Methadone Screen,Urine Negative ng/ml (<300)
[2022-08-29 15:44] LABS: Opiate Screen,Urine Negative ng/ml (<300)
[2022-08-29 15:45] LABS: Phencyclidine Screen,Urine Negative ng/ml (<25)
== END ==
PROVIDERS: PCP Emergency Medicine; Visit Provider Emergency Medicine
DX: R52 Pain, unspecified (principal)
CPT/HCPCS: 80305

== ENCOUNTER 2022-09-26 02:03 | Observation (INO) | payer OTHER, SELFPAY ==
[2022-09-26] VITALS (26 sets, daily range): BP systolic 146–205; BP diastolic 72–108; PULSE 80–172; RESP 19–36; TEMP 36.6–37.2; O2SAT 89–94; BMI 23.3; BMI 23.1
--- NOTE | 2022-09-26 01:58 | ECG_ITS ---
APPROVED REPORT Exam: Resting ECG HR:137 bpm ECG Measurements Heart Rate 137 AXES UT 108 P 66 QRSd 89 QRS 67 QT 364 T 72 QTc 444 Conclusion SINUS TACHYCARDIA WITH SHORT UT INTERVAL NONSPECIFIC ST & T-WAVE ABNORMALITY ABNORMAL RHYTHM ECG UNCONFIRMED REPORT Electronically signed by : Evaristo Gonzalez MD 09/27/2022 21:09:51
--- NOTE | 2022-09-26 02:03 | XR_ITS ---
PROCEDURE INFORMATION: Exam: XR Chest Exam date and time: 09/26/2022 2:19 AM Age: 56 years old Clinical indication: Shortness of breath; Patient HX: SOA w cough. HX copd, smoker TECHNIQUE: Imaging protocol: Radiologic exam of the chest. Views: 1 view. COMPARISON: CR XR CHEST 2V 08/16/2022 9:04 AM FINDINGS: Lungs: Minimal bibasilar linear and ground-glass opacities, likely areas of atelectasis and/or minimal pneumonitis. Pleural spaces: Unremarkable. No pleural effusion. No pneumothorax. Heart/Mediastinum: Normal. Bones/joints: No acute abnormality. IMPRESSION: Minimal bibasilar linear and ground-glass opacities, likely areas of atelectasis and/or minimal pneumonitis.
[2022-09-26 02:05] LABS: ABG Base Excess -3.8 mmol/L (-2.4-2.3); ABG HCO3 21.6 mmhg (22.0-26.0); ABG Oxygen Saturation 92 % (90-100); ABG PCO2 38.8 mmhg (35.0-45.0); ABG PH 7.36 mmol/L (7.35-7.45); ABG PO2 65.8 mmhg (80-100); ABG TCO2 22.8 mmhg (23-27)
[2022-09-26 02:06] LABS: Allen's Test Y; Oxygen 3 %; Source Right Radial
[2022-09-26 02:16] LABS: Coronavirus 19, PCR Not Detected (NotDetected); Influenza A, PCR Not Detected (NotDetected); Influenza B, PCR Not Detected (NotDetected)
--- NOTE | 2022-09-26 02:19 | PC.NURSE ---
Patient assisted to restroom. Pt is assist x 1. Ambulated on 3L of oxygen.
[2022-09-26 02:23] LABS: Lactic Acid 1.8 mmol/L (0.7-2.1)
[2022-09-26 02:24] LABS: Alanine Aminotransferase 15 U/L (12-78); Albumin Level 3.4 g/dl (3.5-5.0); Albumin/Globulin Ratio 1.1 (1.1-1.8); Alkaline Phosphatase 89 U/L (38-126); Anion Gap 14.6 mEq/L (5-15); Aspartate Amino Transferase 22 U/L (14-36); Blood Urea Nitrogen 15 mg/dl (7-17); Calcium 8.5 mg/dl (8.4-10.2); Carbon Dioxide 27 mmol/L (22.0-30.0); Chloride 108 mmol/L (98-107); Creatinine Clearance Estimated 58 mL/min (50-200); Estimated Glomerular Filt Rate 58 ml/min (>60); GFR (African American) 70 ML/MIN (>60); Globulin 3.1 g/dL (1.3-3.2); Glucose 147 mg/dl (74-100); Potassium 3.6 mmoL/L (3.5-5.1); Sodium 146 mmol/L (136-145); Total Protein,Serum 6.5 g/dl (6.3-8.2)
--- NOTE | 2022-09-26 02:26 | PC.NURSE ---
Patient called out requesting assistance. Patient needed assistance untangling her necklace from her oxygen tubing. Patient requested ice chips and a pillow. I advised the patient that she could not have any ice until the results from her testing are available.
[2022-09-26 02:27] LABS: Basophils # 0.1 K/mm3 (0-0.2); Bilirubin,Total < 0.1 mg/dl (0.2-1.3); Eosinophils # 0.1 K/mm3 (0.0-0.4); Eosinophils % 0.5 % (0.1-12.0); Hematocrit 33.7 % (37.0-47.0); Hemoglobin 10.3 g/dL (12.2-16.2); Lymphocytes # 1.6 K/mm3 (0.7-4.5); Lymphocytes % 15.8 % (10-50); Mean Corpuscular HGB Conc 30.6 g/dL (31.8-35.4); Mean Corpuscular Hemoglobin 26.8 pg (27.0-31.2); Mean Corpuscular Volume 87.6 fl (81-99); Mean Platelet Volume 8.4 fl (7.4-10.4); Monocytes # 0.5 K/mm3 (0.1-1.0); Monocytes % 4.9 % (1.7-9.3); Neutrophils # 8.1 K/mm3 (1.8-7.8); Neutrophils % 77.9 % (37.0-80.0); Platelet Count 298 K/mm3 (142-424); Red Blood Count 3.85 M/mm3 (4.20-5.40); White Blood Count 10.4 K/mm3 (4.8-10.8)
[2022-09-26 02:33] LABS: NT Pro Brain Natriuretic Pep. 1120 pg/mL (0-125)
--- NOTE | 2022-09-26 02:34 | HMH.EDURI ---
Discharge Plan Disposition Patient Disposition: Admitted As Inpatient Chief Complaint: Upper Respiratory Infection Prescriptions Prescriptions: No Action buprenorphine-naloxone 8-2 mg tablet, sublingual 2 tab SL DAILY ondansetron HCl 4 mg tablet 4 mg PO TIDP PRN (Reason: Nausea) ferrous sulfate 325 mg (65 mg iron) tablet 325 mg PO DAILY folic acid 1 mg tablet 1 mg PO DAILY nicotine (polacrilex) 2 mg gum 2 mg buccal Q2H PRN (Reason: nicotine cravings) Qty: 396 0RF Rx Instructions: Weeks 1 to 6: Chew 1 piece every 2 hours As NEEDED Weeks 7 to 9: Chew 1 piece every 4 hors As NEEDED Weeks 1o to 12: Chew 1 piece every 8 hours As NEEDED clonazepam 0.5 mg tablet 0.5 mg PO TID Qty: 90 1RF gabapentin 300 mg capsule 300 mg PO TID Qty: 90 1RF prednisone 20 mg tablet See Rx Instructions PO BID Qty: 21 0RF Rx Instructions: 3 pills a day for 2 days, 2 pills a day for 5 days, 1 pill a day for 5 days levofloxacin 750 mg tablet 750 mg PO DAILY 7 Days Qty: 7 0RF ipratropium-albuterol 0.5 mg-3 mg(2.5 mg base)/3 mL solution for nebulization 3 ml inhalation QID PRN (Reason: shortness of breath) Qty: 180 3RF clopidogrel 75 mg tablet See Rx Instructions .ROUTE .COMPLEX Qty: 30 2RF Dose Instruction: TAKE ONE TABLET BY MOUTH ONCE A DAY Rx Instructions: TAKE ONE TABLET BY MOUTH ONCE A DAY megestrol 625 mg/5 mL (125 mg/mL) suspension See Rx Instructions .ROUTE .COMPLEX Qty: 150 2RF Dose Instruction: TAKE 1 TEASPOONFUL (5ML) BY MOUTH ONCE A DAY Rx Instructions: TAKE 1 TEASPOONFUL (5ML) BY MOUTH ONCE A DAY bupropion HCl 75 mg tablet See Rx Instructions .ROUTE .COMPLEX Qty: 60 2RF Dose Instruction: TAKE ONE TABLET BY MOUTH 2 TIMES A DAY Rx Instructions: TAKE ONE TABLET BY MOUTH 2 TIMES A DAY famotidine 40 mg tablet See Rx Instructions .ROUTE .COMPLEX Qty: 30 2RF Dose Instruction: TAKE ONE TABLET BY MOUTH ONCE A DAY Rx Instructions: TAKE ONE TABLET BY MOUTH ONCE A DAY escitalopram oxalate 20 mg tablet See Rx Instructions .ROUTE .COMPLEX Qty: 30 2RF Dose Instruction: TAKE ONE TABLET BY MOUTH ONCE A DAY Rx Instructions: TAKE ONE TABLET BY MOUTH ONCE A DAY furosemide 20 mg tablet See Rx Instructions .ROUTE .COMPLEX Qty: 30 2RF Dose Instruction: TAKE ONE TABLET BY MOUTH ONCE A DAY Rx Instructions: TAKE ONE TABLET BY MOUTH ONCE A DAY Trelesusan Ellipta 100-62.5-25 mcg blister with device See Rx Instructions .ROUTE .COMPLEX Qty: 60 2RF Dose Instruction: INHALE 1 PUFF BY MOUTH ONCE A DAY Rx Instructions: INHALE 1 PUFF BY MOUTH ONCE A DAY nicotine 21 MG/PATCH patch 24 hour 21 mg TD DAILYP PRN (Reason: Nicotine Cravings) Qty: 30 0RF alendronate 70 MG tablet 70 mg PO WEEKLY albuterol sulfate 8.5 GM HFA aerosol inhaler 2 puff PO Q6H rosuvastatin 5 MG tablet 5 mg PO DAILY bisoprolol fumarate 5 mg tablet 5 mg PO DAILY calcium carbonate-vitamin D3 600 mg-10 mcg (400 unit) tablet 1 tab PO DAILY estradiol 1 mg tablet 1 mg PO DAILY risperidone 2 mg tablet 2 mg PO HS docusate sodium 100 MG capsule 100 mg PO DAILYP PRN (Reason: Constipation) aspirin 81 MG tablet,delayed release (DR/EC) 81 mg PO DAILY Referrals Follow up/Referrals: Chuck Pineda MD [Primary Care Provider] - See instructions Clinical Impressions Clinical Impression: Acute exacerbation of chronic obstructive pulmonary disease (COPD), Severe aortic regurgitation, Diastolic dysfunction, Tobacco abuse Discharge ED Provider: Chuck Pineda URI/Sore Throat HPI General Chief Complaint: Upper Respiratory Infection Stated Complaint: SOA Time Seen by Provider: 09/26/22 02:34 Mode of Arrival: EMS Source of Information: Patient, EMS and Medical Record Limitations: No Limitations Description of Symptoms (Recalled f
--- NOTE | 2022-09-26 02:34 | PC.NURSE ---
Patient called out and requested assistance with putting her teeth in her purse. Patient also requested the back of her bed be elevated.
--- NOTE | 2022-09-26 02:36 | PC.NURSE ---
pt called out from room requesting additional breathing treatment. MD notified. Order entered for one time xopinex treatment. Respiratory therapy notified.
--- NOTE | 2022-09-26 02:43 | PC.NURSE ---
Patient called out requested heating be turned up in her room and requested that respiratory be notified to [facility]. Patients oxygen was increased from 3 liters to 4 liters per md.
[2022-09-26 02:45] LABS: Troponin I < 0.01 ng/ml (0.00-0.034)
--- NOTE | 2022-09-26 02:51 | PC.NURSE ---
Respiratory therapy in patient room giving breathing treatment.
--- NOTE | 2022-09-26 02:53 | PC.NURSE ---
Respiratory therapy notified nursing staff that patient is requesting to go to the restroom. Pamela is currently assisting patient to bedside commode.
[2022-09-26 03:02] LABS: Microscopic, Urine URINE MICROSCOPIC (MICROSCOPIC)
--- NOTE | 2022-09-26 03:07 | PC.NURSE ---
Patient called out requesting assistance to bedside commode. I asked the patient if she was able to pee when she went last and she said she did but she still felt like she needed to go. I asked patient if she would be interested in using a purewic and patient refused. States that she just assume try to use the bedside commode. Patient ambulated assist x 1 to bedside commode.
--- NOTE | 2022-09-26 03:12 | PC.NURSE ---
Patient assisted back to bed form bedside commode. Patient was not able to urinate. Patient was placed on ecg monitor.
--- NOTE | 2022-09-26 03:15 | PC.NURSE ---
at patient bedside. Patient was questioned as to when she is planning to quit smoking. Patient states that she only smoked one puff today . Patient requested something to help her sleep from . explained to her that he couldn't prescribe her anything to sleep due to her current respiratory rate.
--- NOTE | 2022-09-26 03:18 | PC.NURSE ---
Paged maintenance regarding the patients heat in room 4. Spoke with Stepan in maintenance who is en route to assess the heat.
--- NOTE | 2022-09-26 03:24 | PC.NURSE ---
When rounding on patient, she was found to be sitting on the bedside commode. Patient says she ambulated independently to bedside.
[2022-09-26 03:26] LABS: Appearance,Urine CLEAR (Clear); Bilirubin,Urine Negative (Negative); Blood, Urine Negative (Negative); Color,Urine YELLOW (Yellow); Glucose,Urine (UA) Negative (Negative); Ketones,Urine Negative (Negative); Leukocyte Esterase,Urine Negative (Negative); Nitrate,Urine Negative (Negative); PH,Urine 7.5 (5.0-8.5); Protein,Urine Negative (Negative); Specific Gravity, Urine 1.015 (1.005-1.030); Urobilinogen,Urine 0.2 EU/dl (0.2)
--- NOTE | 2022-09-26 03:34 | PC.NURSE ---
hospitalist at bedside
[2022-09-26 03:44] LABS: Bacteria,Urine Trace /lpf
--- NOTE | 2022-09-26 03:56 | EXP.HP ---
History of Present Illness *Admission Date: 09/26/22 *Reason for visit:: Shortness of air, cough *History of present illness: Ms. Rush is a 56-year-old female well know to this facility from prior admissions. She has a past medical history per chart review that is positive for COPD, Severe Aortic Regurgitation, Bronchiectasis, Hepatitis C, Chronic Pain Syndrome, Anxiety Disorder, HTN, Hyperlipidemia and Diastolic CHF. She presents to [facility] through the ER today secondary to shortness of air. The patient was seen on admission in the ER. She reports that her trouble with breathing started today, she reports in addition to difficulty breathing that she is hurting all over. In the ER, Cxray obtained was concerning for Atelectasis. CBC and BMP were unremarkable. ABG showed a combined Respiratory and Metabolic Acidosis. In the ER, the patient received Solu-Medrol and Nebulizers. COVID and Flu testing were negative. The patient will be admitted with initial impression: COPD exacerbation. Pulmonary will be consulted to see. The patient will be placed on Nebulizers, Steroids and antibiotics. The plan of care was discussed with the patient at bedside. The patient verbalized understanding and agreement with the plan of care. [facility] 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 Abnormal ECG Acute exacerbation of chronic obstructive airways disease Acute exacerbation of chronic obstructive airways disease HUGO (acute kidney injury) Anemia Anxiety Aortic regurgitation Apnea Atypical chest pain Back Pain Bilateral lower extremity edema Bronchiectasis without acute exacerbation CAD (coronary artery disease) Carotid artery disease without cerebral infarction Cervical radiculopathy Cervical spondylosis with radiculopathy Chest pain Chest pain Chronic headaches Congestive heart failure COPD (chronic obstructive pulmonary disease) COPD (chronic obstructive pulmonary disease) COPD (chronic obstructive pulmonary disease) COPD exacerbation COPD mixed type COPD with acute exacerbation Coronary artery disease Cough COVID-19 Depression Diastolic congestive heart failure Elevated erythrocyte sedimentation rate Falls Fatigue Fracture dislocation of joint Gram-negative pneumonia HCV (hepatitis C virus) History of intravenous drug use in remission Hoarseness Hyperlipidemia Insomnia Joint pain Joint pain of ankle and foot Left carpal tunnel syndrome Lipoma of abdominal wall LVH (left ventricular hypertrophy) Osteopenia Osteoporosis Osteoporosis without current pathological fracture Pain in metatarsus, bilateral Perimenopausal disorder Plantar fasciitis, bilateral Pneumonia Pneumonia Pneumonia due to COVID-19 virus Pneumonia due to other gram-negative bacteria Polysubstance abuse TOMY (renal artery stenosis) Recurrent bacterial pneumonia Renal insufficiency Respiratory failure Right arm pain Right leg pain Rotator cuff arthropathy of right shoulder Severe aortic regurgitation Severe sepsis with acute organ dysfunction Shortness of Breath Skin abscess Syncope and collapse Tobacco abuse Tobacco use Unresolved pneumonia Unstable angina Weakness Surgical History History of arthroscopic knee surgery History of breast biopsy History of cancer surgery History of cardiac cath History of carpal tunnel release History of section History of colonoscopy History of coronary artery stent placement History of hernia repair History of hysterectomy History of ureter stent Hx of cholecystectomy Family History Other Family history of COPD (chronic obstructive pulmonary disease) Family history of anemia Family history of hyperlipidemia Family history of hypertension Social History Smoking Status: Current every day smoke
--- NOTE | 2022-09-26 04:14 | PC.NURSE ---
Patient called out for assistance back to bed. Patient had gotten herself up to the bedside independently but could not get herself into the bed
[2022-09-26 06:51] LABS: ABG Base Excess -1.3 mmol/L (-2.4-2.3); ABG HCO3 23.8 mmhg (22.0-26.0); ABG Oxygen Saturation 94 % (90-100); ABG PCO2 41.2 mmhg (35.0-45.0); ABG PH 7.38 mmol/L (7.35-7.45); ABG TCO2 25.1 mmhg (23-27)
[2022-09-26 06:54] LABS: Allen's Test Acceptable; Oxygen 4L %; Source Left Radial
[2022-09-26 06:59] LABS: Troponin I < 0.01 ng/ml (0.00-0.034)
--- NOTE | 2022-09-26 07:48 | HMH.PHAINT1 ---
Pharmacy Intervention Comments: Home medication reconciliation completed using outpatient pharmacy fill history.
--- NOTE | 2022-09-26 08:20 | DIET.NUTRFU ---
Patient saw TEACHING FELLOW on 08/13 with recommendations of MSOFT with no straws. Spoke to TEACHING FELLOW this AM, they continue those recommendations, will update diet.
[2022-09-26 09:02] LABS: Troponin I < 0.01 ng/ml (0.00-0.034)
--- NOTE | 2022-09-26 09:42 | EXP.PULM.CON ---
History of Present Illness History of present illness: Ms. Rush is a 56-year-old female greater than [id number] smoking history, history of COPD, bronchiectasis recent infections with MDR Klebsiella pneumonia presented hospital with 4 to 5-day history of worsening cough along with productive phlegm, change in color along with worsening respiratory distress. [facility] 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 (Updated 09/26/22 @ 10:52 by Kraig Orourke MD) Abnormal ECG Acute exacerbation of chronic obstructive airways disease Acute exacerbation of chronic obstructive airways disease HUGO (acute kidney injury) Anemia Anxiety Aortic regurgitation Apnea Atypical chest pain Back Pain Bilateral lower extremity edema Bronchiectasis without acute exacerbation CAD (coronary artery disease) Carotid artery disease without cerebral infarction Cervical radiculopathy Cervical spondylosis with radiculopathy Chest pain Chest pain Chronic headaches Congestive heart failure COPD (chronic obstructive pulmonary disease) COPD (chronic obstructive pulmonary disease) COPD (chronic obstructive pulmonary disease) COPD exacerbation COPD mixed type COPD with acute exacerbation Coronary artery disease Cough COVID-19 Depression Diastolic congestive heart failure Elevated erythrocyte sedimentation rate Exacerbation of bronchiectasis due to infection Falls Fatigue Fracture dislocation of joint Gram-negative pneumonia HCV (hepatitis C virus) History of intravenous drug use in remission Hoarseness Hyperlipidemia Insomnia Joint pain Joint pain of ankle and foot Left carpal tunnel syndrome Lipoma of abdominal wall LVH (left ventricular hypertrophy) Osteopenia Osteoporosis Osteoporosis without current pathological fracture Pain in metatarsus, bilateral Perimenopausal disorder Plantar fasciitis, bilateral Pneumonia Pneumonia Pneumonia Pneumonia due to COVID-19 virus Pneumonia due to other gram-negative bacteria Polysubstance abuse TOMY (renal artery stenosis) Recurrent bacterial pneumonia Renal insufficiency Respiratory failure Right arm pain Right leg pain Rotator cuff arthropathy of right shoulder Severe aortic regurgitation Severe sepsis with acute organ dysfunction Shortness of Breath Skin abscess Syncope and collapse Tobacco abuse Tobacco use Unresolved pneumonia Unstable angina Weakness Surgical History History of arthroscopic knee surgery History of breast biopsy History of cancer surgery History of cardiac cath History of carpal tunnel release History of section History of colonoscopy History of coronary artery stent placement History of hernia repair History of hysterectomy History of ureter stent Hx of cholecystectomy Family History Other Family history of COPD (chronic obstructive pulmonary disease) Family history of anemia Family history of hyperlipidemia Family history of hypertension Social History (Updated 09/26/22 @ 05:13 by Analy Luong RN) Smoking Status: Current every day smoker tobacco type: cigarettes packs per day: 1 second hand exposure: No alcohol intake: never substance use type: painkillers current occupational status: disabled Travel in the last 8 weeks: None household members: friend(s) housing: house marital status: current occupational exposures/hazards: No caffeine: Yes Review of Systems Constitutional Constitutional: Reports fatigue and Reports weakness Eyes Eyes: Denies eye discharge, Denies dry eyes, Denies irritation and Denies itchy eyes ENT Ears, Nose, Mouth, and Throat: Denies epistaxis, Denies facial pain, Denies lip swelling and Denies throat swelling *Cardiovascular Cardiovascular: Reports dyspnea and Reports dyspnea on exertion *Respiratory Respiratory: Reports chest congestion, Reports cough, Reports dyspnea, Reports dyspnea on exertion, Reports exc
--- NOTE | 2022-09-26 11:36 | EXP.PN ---
Subjective *Date: 09/26/22 *Time: 11:36 Interval history: Date of service 09/26/2022 The patient is lying in bed with her nebulizer therapy mask in place. I am accompanied by multiple members of the MDR team. She reports that she is breathing better. She describes fatigue. She was able to sleep this morning. Nursing staff report that she remains afebrile with elevated heart rates and blood pressures. She is saturating appropriately on 4 L of oxygen via nasal cannula. Pulmonology is due to see the patient. Exam Data for Last 24 hours Vital signs and Labs for Last 24 Hours: Temp Pulse Resp BP Pulse Ox 99.0 F 122 H 19 170/87 H 93 L 09/26/22 08:00 09/26/22 09:36 09/26/22 08:00 09/26/22 08:00 09/26/22 09:36 Laboratory Results - last 24 hr 09/26/22 02:02: WBC 10.4, RBC 3.85 L, Hgb 10.3 L, Hct 33.7 L, MCV 87.6, MCH 26.8 L, MCHC 30.6 L, RDW 21.0 H, Plt Count 298, MPV 8.4, Neut % (Auto) 77.9, Lymph % (Auto) 15.8, [place] % (Auto) 4.9, Eos % (Auto) 0.5, Baso % (Auto) 1.0, Neut # (Auto) 8.1 H, Lymph # (Auto) 1.6, [place] # (Auto) 0.5, Eos # (Auto) 0.1, Baso # (Auto) 0.1 09/26/22 02:02: Sodium 146 H, Potassium 3.6, Chloride 108 H, Carbon Dioxide 27, Anion Gap 14.6, BUN 15, Creatinine 1.00, Estimated Creat Clear 58, Estimated GFR 58 L, Est GFR ( Amer) 70, Glucose 147 H, Calcium 8.5, Total Bilirubin < 0.1 L, AST 22, ALT 15, Alkaline Phosphatase 89, Troponin I < 0.01, Total Protein 6.5, Albumin 3.4 L, Globulin 3.1, Albumin/Globulin Ratio 1.1 09/26/22 02:02: Lactate 1.8 09/26/22 02:02: SARS-CoV-2 (PCR) Not detected, Influenza A Untype (PCR) Not detected, Influenza Type B (PCR) Not detected 09/26/22 02:02: NT-Pro-B Natriuret Pep 1120 H 09/26/22 02:04: Specimen Source Right radial, O2 % 3, ABG pH 7.36, ABG pCO2 38.8, ABG pO2 65.8 L, ABG HCO3 21.6 L, ABG Total CO2 22.8 L, ABG O2 Saturation 92, ABG Base Excess -3.8 L, Rohan Test Y 09/26/22 02:55: Urine Color Yellow, Urine Appearance Clear, Urine pH 7.5, Ur Specific [place] 1.015, Urine Protein Negative, Urine Glucose (UA) Negative, Urine Ketones Negative, Urine Blood Negative, Urine Nitrate Negative, Urine Bilirubin Negative, Urine Urobilinogen 0.2, Ur Leukocyte Esterase Negative, Urine Bacteria Trace 09/26/22 05:43: Troponin I < 0.01 09/26/22 05:56: Specimen Source Left radial, O2 % 4l, ABG pH 7.38, ABG pCO2 41.2, ABG pO2 74.0 L, ABG HCO3 23.8, ABG Total CO2 25.1, ABG O2 Saturation 94, ABG Base Excess -1.3, Rohan Test Acceptable 09/26/22 08:07: Troponin I < 0.01 I & O for Last 24 hours: Intake & Output 09/23/22 09/24/22 09/25/22 09/26/22 23:59 23:59 23:59 23:59 Intake Total 120 / 120 Balance 120 / 120 Weight 57.017 kg Microbiology Reports for the Last 24 Hours: Microbiology 09/26/22 09:30 Sputum - Nasotracheal Suction Gram Stain - Final Constitutional Constitutional: moderate distress, chronically ill appearing and cooperative *Routine HEENT Exam Head: Present normocephalic and atraumatic Eye: Present EOMI and PERRL ENT: Present mucous membranes moist *Routine Neck Exam Neck: Present supple and trachea midline; Absent JVD or thyromegaly *Routine Respiratory Exam Respiratory: Present accessory muscle use, respiratory distress, rhonchi, wheezes and diminished air movement; Absent able to speak in complete sentences *Routine Cardiovascular Exam Cardiovascular: Present Normal S1, Normal S2 and tachycardia; Absent murmur *Routine Abdominal Exam Abdominal: Present soft and normoactive bowel sounds; Absent tenderness *Routine Extremities Exam Extremities: Present clubbing, full ROM and normal capillary refill; Absent edema *Routine Skin Exam Skin: Present dry and normal turgor; Absent rash *Routine Neurological Exam Neurological: Present alert, oriented X3, moving all extremities, vision grossly intact and hearing grossly intact; Absent sensory deficit or motor deficit Routine Psychiatric Exam Psychiatric: Present normal affect, normal thought process and cooperative
--- NOTE | 2022-09-26 13:50 | PC.NURSE ---
late entry: at approx 1235 pt called out for assistance stating that she couldn't breath. upon entering the room pt was found to not have her nasal cannula in place. pt o2 was placed back in nostrils and she was coached through slowing her breathing down. pt was able to relax and no longer felt short of breath. pt notified this RN at that time that she wished to change her code status back to FULL CODE. Dr Orourke was notified of change of code status at 1243 no new orders
--- NOTE | 2022-09-26 14:28 | PC.NURSE ---
summary of am: pt had been up to the bedside commode multiple times after the start of the shift. pt was unable to void but stated that she had the urge. pt was ordered lasix iv as well by pulmonolgy. order was asked for and received for a crawford catheter to be placed r/t retention and accurate i/o. pt tolerated insertion well.
--- NOTE | 2022-09-26 14:35 | PC.NURSE ---
notified Dr Swanson at 1415 that pt needs order for VTE proph. order received for heparin 5000units sq q8h
--- NOTE | 2022-09-26 18:35 | PC.NURSE ---
pt refused to use the vest for percussion @ 1830.
--- NOTE | 2022-09-26 22:40 | PC.NURSE ---
it was noted upon rounding that pt had a medicine bottle in hand with 2 pills from bottle poured out into hand, bottle was taken from patient and it was noted on bottle was written clonazepam, medication was counted and locked up in med commercial or institutional cleaner room, pt was upset and wanted to leave leann knott np; and plumbing warehouse helper was notified. pt stated that she did not have any more meds in purse when asked.
[2022-09-27] VITALS (13 sets, daily range): BP systolic 140–171; BP diastolic 80–99; PULSE 77–112; RESP 16–30; TEMP 36.4–37; O2SAT 90–95; BMI 22.8
--- NOTE | 2022-09-27 04:00 | PC.NURSE ---
pt is alert and oriented x4, no acute distress noted, lung sounds with expiratory and inspiratory wheezes and rhonchi noted, pt soa with 02 at 4L pnc, o2 sats have been 88 to 91% on 4L, no edema noted, bed alarm in place, skin pwd, crawford to bsd with clear yellow urine noted, pt is requesting crawford to be taken out, pt requested to leave ama in which leann myrick talent acquisition administrator spoke with pt and family member and pt agreed to stay, pt attempts to ambulate on own with unsteady gait noted, no other issues or concerns at this time.
--- NOTE | 2022-09-27 09:44 | EXP.PULM.PN ---
Subjective *Date: 09/27/22 *Time: 10:52 Interval history: No acute respiratory vents overnight. Continued to be needing oxygen. Continue to have cough and productive phlegm. Pulmonology Exam Inpatient Vital signs and Labs for Last 24 Hours: Temp Pulse Resp BP Pulse Ox 98.6 F 108 H 22 164/85 H 91 L 09/27/22 08:00 09/27/22 08:00 09/27/22 08:00 09/27/22 08:00 09/27/22 08:00 I & O for Labs for Last 24 Hours: Intake & Output 09/24/22 09/25/22 09/26/22 09/27/22 23:59 23:59 23:59 23:59 Intake Total 1200 / 1200 480 / 480 Output Total 3850 / 3850 200 / 200 Balance -2650 / -2650 280 / 280 Weight 125 lb 11.2 oz 124 lb 3 oz Microbiology Reports for the Last 24 Hours: Microbiology 09/26/22 09:30 Sputum - Nasotracheal Suction Gram Stain - Final 09/26/22 09:30 Sputum - Nasotracheal Suction Sputum Culture - Preliminary Gram Negative Rods Constitutional: Present moderate distress Head: Present normocephalic and atraumatic ENT: Present normal exam, normal oropharynx and mucous membranes moist Neck: Present normal inspection and full ROM Respiratory: Present accessory muscle use, rhonchi, wheezes, crackles and diminished air movement; Absent patient mechanically ventilated or able to speak in complete sentences Cardiac: Present Diastolic Murmur, Tachycardia and radial pulses present; Absent S1/S2 GI: Present soft and distention; Absent tenderness or guarding Rectal (female): Present deferred (female): Present deferred Skin: Present intact; Absent cyanosis or jaundice Neuro: Present alert, awake and oriented x 3 Extremities: Present normal inspection; Absent clubbing or cyanosis Psychiatric: Present normal affect and cooperative Assessment and Plan *Assessment and plan (1) Acute exacerbation of COPD with asthma: Status: Acute Category: Medical Code(s): J44.1 - Chronic obstructive pulmonary disease with (acute) exacerbation; J45.901 - Unspecified asthma with (acute) exacerbation (2) Exacerbation of bronchiectasis due to infection: Status: Acute Category: Medical Code(s): J47.1 - Bronchiectasis with (acute) exacerbation; B99.9 - Unspecified infectious disease (3) Pneumonia: Status: Acute Qualifiers: Laterality: right Lung location: lower lobe of lung Pneumonia type: due to unspecified organism Qualified Code(s): J18.9 - Pneumonia, unspecified organism Category: Medical Code(s): J18.9 - Pneumonia, unspecified organism Plan Ms. Rush is a 56-year-old female with more than [id number] smoking history H/O COPD, bronchectasis, recurrent pneumonias,severe AR On admission No evidence of leukocytosis, 10.4.Hypernatremia noted. BNP mildly elevated at 1120. Chest x-ray on admission reviewed, no dense consolidation noted, bilateral lower lobe infiltrate noted. Patient on admission was initiated on levofloxacin and methylprednisolone. COVID and Flu testing were negative. Blood gas from admission reviewed, did not show any evidence of hypoxic or hypercarbic respiratory failure. On clinical examination patient appeared to be in worsening respiratory so than her baseline. Significant rhonchi and expiratory wheezing noted. Interval update: No labs today for review. No acute respiratory events. Continues to have cough and productive phlegm. Continued to be needing oxygen supplementation on examination on 4 L nasal cannula saturating 90%, stable from admission. (higher than her baseline normal, during her most recent clinic visit patient saturating 94% on room air) Sputum showing gram-negative rods. Blood cultures pending. ABG from this morning, continue to show hypoxic respiratory failure with PO2 63 on 5 L nasal cannula. Mild hypercarbic respiratory failure pH is low normal values. Chest x-ray from this morning stable from admission, continue to show right lower lobe pulmonary infiltrate, no dense consolidation noted.
--- NOTE | 2022-09-27 10:13 | XR_ITS ---
FINAL REPORT CLINICAL HISTORY: Hypoxia COMPARISON: 09/26/2022 FINDINGS: A single portable view of the chest was obtained. The heart size and pulmonary vascularity are within normal limits. The mediastinum is within normal limits. No acute pulmonary abnormality is identified. The bony thorax is intact. IMPRESSION: No active cardiopulmonary disease. Reviewed, Interpreted and Dictated by Edward Espinoza III, MD Transcribed by Lisa Bryson Authenticated and [facility]
[2022-09-27 10:15] LABS: ABG Base Excess 2.3 mmol/L (-2.4-2.3); ABG HCO3 27.7 mmhg (22.0-26.0); ABG Oxygen Saturation 90 % (90-100); ABG PCO2 49.7 mmhg (35.0-45.0); ABG PH 7.36 mmol/L (7.35-7.45); ABG PO2 63.5 mmhg (80-100); ABG TCO2 29.2 mmhg (23-27)
[2022-09-27 10:18] LABS: Allen's Test ACCEPTABLE; Oxygen 5LPM %; Source Right Radial
--- NOTE | 2022-09-27 14:19 | EXP.PN ---
Subjective *Date: 09/27/22 *Time: 14:19 Interval history: Date of service September 22, 2022 The patient reports some dyspnea today. I am accompanied by multiple members of the MDR team to evaluate the patient. Nursing staff report that she remains afebrile with increased blood pressures heart rate and respiratory rate. She is requiring 5 L of oxygen to maintain appropriate oxygen saturations. She continues to tolerate her IV antibiotic and IV methylprednisolone with no adverse events. Her chronic respiratory disease history has been discussed with her acquisition consultant vacuum tank tender Dr. Orourke. Exam Data for Last 24 hours Vital signs and Labs for Last 24 Hours: Temp Pulse Resp BP Pulse Ox 98.1 F 97 H 22 168/98 H 93 L 09/27/22 11:53 09/27/22 11:53 09/27/22 11:53 09/27/22 11:53 09/27/22 11:53 Laboratory Results - last 24 hr 09/27/22 10:06: Specimen Source Right radial, O2 % 5lpm, ABG pH 7.36, ABG pCO2 49.7 H, ABG pO2 63.5 L, ABG HCO3 27.7 H, ABG Total CO2 29.2 H, ABG O2 Saturation 90, ABG Base Excess 2.3, Rohan Test Acceptable I & O for Last 24 hours: Intake & Output 09/24/22 09/25/22 09/26/22 09/27/22 23:59 23:59 23:59 23:59 Intake Total 1200 / 1200 480 / 480 Output Total 3850 / 3850 1000 / 1000 Balance -2650 / -2650 -520 / -520 Weight 57.017 kg 56.331 kg Microbiology Reports for the Last 24 Hours: Microbiology 09/26/22 09:30 Sputum - Nasotracheal Suction Gram Stain - Final 09/26/22 09:30 Sputum - Nasotracheal Suction Sputum Culture - Preliminary Gram Negative Rods Constitutional Constitutional: moderate distress, obese and chronically ill appearing *Routine HEENT Exam Head: Present normocephalic and atraumatic Eye: Present EOMI and PERRL ENT: Present mucous membranes moist *Routine Neck Exam Neck: Present supple; Absent JVD or lymphadenopathy *Routine Respiratory Exam Respiratory: Present accessory muscle use, respiratory distress, rhonchi, stridor, wheezes and diminished air movement *Routine Cardiovascular Exam Cardiovascular: Present tachycardia; Absent murmur *Routine Abdominal Exam Abdominal: Present soft and normoactive bowel sounds; Absent tenderness *Routine Extremities Exam Extremities: Present full ROM and normal capillary refill; Absent edema *Routine Skin Exam Skin: Present intact and warm; Absent rash *Routine Neurological Exam Neurological: Present alert, oriented X3, moving all extremities, vision grossly intact and hearing grossly intact; Absent sensory deficit or motor deficit Routine Psychiatric Exam Psychiatric: Present normal affect and cooperative Assessment and Plan *Assessment and plan (1) Acute exacerbation of COPD with asthma: Status: Acute Category: Medical Code(s): J44.1 - Chronic obstructive pulmonary disease with (acute) exacerbation; J45.901 - Unspecified asthma with (acute) exacerbation (2) Exacerbation of bronchiectasis due to infection: Status: Acute Category: Medical Code(s): J47.1 - Bronchiectasis with (acute) exacerbation; B99.9 - Unspecified infectious disease Plan Acute exacerbation of COPD-pulse oximetry monitoring, oxygen therapy to maintain appropriate oxygen saturations currently requiring 4-5 L via nasal cannula, Natalie/Christi inhalation therapy, ICS therapy, IV methylprednisolone therapy, incentive spirometry, guaifenesin therapy, PPI therapy, ABG results reviewed Exacerbation of bronchiectasis due to infection-past history of MDR Klebsiella, Levaquin 750 mg p.o. daily x 5 days, pulmonology consult reviewed, chest x-ray reviewed Severe aortic regurgitation-routine blood pressure monitoring, beta-rosalia therapy, add ARB therapy, loop diuretic therapy, statin therapy, follow-up with [facility]
--- NOTE | 2022-09-27 18:43 | PC.NURSE ---
Pt is alert and oriented x4. Audible wheezes and rhonchi noted t/o lungs. She is currently on 5L NC with O2 sats measuring > 90%. Pt has a pull alarm but she has repeatedly removed it. She has been educated multiple times that the alarm is for her protection. She has expressed a desire to go home, it's been explained by MD and myself the importance to staying at this time. She is currently resting in the bed. Bed is locked and in the lowest position. Call light is within reach. Pull alarm engaged.
--- NOTE | 2022-09-27 19:18 | PC.NURSE ---
RT NOTE: PT REFUSED TO WEAR THE PERCUSSION VEST.
[2022-09-28] VITALS (9 sets, daily range): BP systolic 124–160; BP diastolic 71–90; PULSE 77–106; RESP 18–23; TEMP 36.6–36.8; O2SAT 90–98; BMI 22.6
--- NOTE | 2022-09-28 06:36 | PC.NURSE ---
pt is alert and oriented with some confusion at times and forgets limitations and where she is, pt with bed alarm in place, pt up to chair multiple times and will turn bed alarm of herself, pt instructed multiple times to no be ambulating without assistance due to unsteady gait, pt wanting to go home, vss, pt still soa with 02 at 5L pnc, 02 sats are 90%, lungs with inspiratory and expiratory wheezes bilaterally, pt impulsive at times and non compliant
[2022-09-28 08:17] LABS: Basophils % 0.4 % (0.1-2.0); Eosinophils # 0.1 K/mm3 (0.0-0.4); Eosinophils % 1.1 % (0.1-12.0); Hematocrit 32.8 % (37.0-47.0); Hemoglobin 10.1 g/dL (12.2-16.2); Lymphocytes # 0.6 K/mm3 (0.7-4.5); Lymphocytes % 5.6 % (10-50); Mean Corpuscular HGB Conc 30.6 g/dL (31.8-35.4); Mean Corpuscular Hemoglobin 26.7 pg (27.0-31.2); Mean Corpuscular Volume 87.3 fl (81-99); Mean Platelet Volume 8.2 fl (7.4-10.4); Monocytes # 0.5 K/mm3 (0.1-1.0); Monocytes % 5.3 % (1.7-9.3); Neutrophils # 8.6 K/mm3 (1.8-7.8); Neutrophils % 87.6 % (37.0-80.0); Platelet Count 296 K/mm3 (142-424); Red Blood Count 3.76 M/mm3 (4.20-5.40); Red Cell Distribution Width 20.8 % (11.5-17.5); White Blood Count 9.9 K/mm3 (4.8-10.8)
[2022-09-28 08:24] LABS: MANUAL DIFFERENTIAL MANUAL DIFFERENTIAL (MANUAL DIFF)
[2022-09-28 08:28] LABS: Chloride 103 mmol/L (98-107); Sodium 142 mmol/L (136-145)
[2022-09-28 08:31] LABS: Blood Urea Nitrogen 29 mg/dl (7-17); Calcium 8.5 mg/dl (8.4-10.2); Carbon Dioxide 32 mmol/L (22.0-30.0); Creatinine Clearance Estimated 56 mL/min (50-200); Estimated Glomerular Filt Rate 58 ml/min (>60); GFR (African American) 70 ML/MIN (>60); Glucose 136 mg/dl (74-100)
[2022-09-28 09:47] LABS: Anisocytosis 1+; Hypochromasia 1+; Lymphocytes % 5 % (10-50); Microcytosis 1+; Monocytes % 2 % (2-9); Neutrophils % 93 % (42-76); Total Cells Counted 100
[2022-09-28 09:48] LABS: Platelet Estimate Normal
--- NOTE | 2022-09-28 09:49 | EXP.PULM.PN ---
Subjective *Date: 09/28/22 *Time: 11:14 Interval history: No acute respiratory events overnight patient admits improving respiratory symptoms. Continue to have cough and productive phlegm Pulmonology Exam Inpatient Vital signs and Labs for Last 24 Hours: Temp Pulse Resp BP Pulse Ox 98.2 F 89 18 124/71 95 09/28/22 08:00 09/28/22 08:00 09/28/22 08:00 09/28/22 08:00 09/28/22 08:00 Laboratory Results - last 24 hr 09/27/22 10:06: Specimen Source Right radial, O2 % 5lpm, ABG pH 7.36, ABG pCO2 49.7 H, ABG pO2 63.5 L, ABG HCO3 27.7 H, ABG Total CO2 29.2 H, ABG O2 Saturation 90, ABG Base Excess 2.3, Rohan Test Acceptable 09/28/22 08:10: WBC 9.9, RBC 3.76 L, Hgb 10.1 L, Hct 32.8 L, MCV 87.3, MCH 26.7 L, MCHC 30.6 L, RDW 20.8 H, Plt Count 296, MPV 8.2, Neut % (Auto) 87.6 H, Lymph % (Auto) 5.6 L, [place] % (Auto) 5.3, Eos % (Auto) 1.1, Baso % (Auto) 0.4, Neut # (Auto) 8.6 H, Lymph # (Auto) 0.6 L, [place] # (Auto) 0.5, Eos # (Auto) 0.1, Baso # (Auto) 0.0, Total Counted 100, Neutrophils % (Manual) 93 H, Lymphocytes % (Manual) 5 L, Monocytes % (Manual) 2, Platelet Estimate Normal, Hypochromasia 1+, Anisocytosis 1+, Microcytosis 1+ 09/28/22 08:10: Sodium 142, Potassium 4.0, Chloride 103, Carbon Dioxide 32 H, Anion Gap 11.0, BUN 29 H D, Creatinine 1.00, Estimated Creat Clear 56, Estimated GFR 58 L, Est GFR ( Amer) 70, Glucose 136 H, Calcium 8.5 I & O for Labs for Last 24 Hours: Intake & Output 09/25/22 09/26/22 09/27/22 09/28/22 23:59 23:59 23:59 23:59 Intake Total 1200 / 1200 1830 / 1830 Output Total 3850 / 3850 1300 / 1300 50 / 50 Balance -2650 / -2650 530 / 530 -50 / -50 Weight 125 lb 11.2 oz 124 lb 3 oz 123 lb 2.051 oz Microbiology Reports for the Last 24 Hours: Microbiology 09/26/22 02:02 Blood Blood Culture - Preliminary NO GROWTH AFTER 48 HOURS 09/26/22 02:02 Blood Blood Culture - Preliminary NO GROWTH AFTER 48 HOURS 09/26/22 09:30 Sputum - Nasotracheal Suction Gram Stain - Final 09/26/22 09:30 Sputum - Nasotracheal Suction Sputum Culture - Preliminary Gram Negative Rods Constitutional: Present moderate distress Head: Present normocephalic and atraumatic ENT: Present normal exam, normal oropharynx and mucous membranes moist Neck: Present normal inspection and full ROM Respiratory: Present accessory muscle use, rhonchi, wheezes, crackles and diminished air movement; Absent patient mechanically ventilated or able to speak in complete sentences Cardiac: Present Diastolic Murmur, Tachycardia and radial pulses present; Absent S1/S2 GI: Present soft and distention; Absent tenderness or guarding Rectal (female): Present deferred (female): Present deferred Skin: Present intact; Absent cyanosis or jaundice Neuro: Present alert, awake and oriented x 3 Extremities: Present normal inspection; Absent clubbing or cyanosis Psychiatric: Present normal affect and cooperative Assessment and Plan *Assessment and plan (1) Acute exacerbation of COPD with asthma: Status: Acute Category: Medical Code(s): J44.1 - Chronic obstructive pulmonary disease with (acute) exacerbation; J45.901 - Unspecified asthma with (acute) exacerbation (2) Exacerbation of bronchiectasis due to infection: Status: Acute Category: Medical Code(s): J47.1 - Bronchiectasis with (acute) exacerbation; B99.9 - Unspecified infectious disease (3) Pneumonia: Status: Acute Qualifiers: Laterality: right Lung location: lower lobe of lung Pneumonia type: due to unspecified organism Qualified Code(s): J18.9 - Pneumonia, unspecified organism Category: Medical Code(s): J18.9 - Pneumonia, unspecified organism Plan Ms. Rush is a 56-year-old female with more than [id number] smoking history H/O COPD, bronchectasis, recurrent pneumonias,severe AR On admission No evidence of leukocytosis, 10.4.Hypernat
--- NOTE | 2022-09-28 10:10 | PC.NURSE ---
courtesy tech round: pt is sitting up in bed sleeping. Pt refused tray for breakfast and stated they just wanted to sleep. call light is within reach
--- NOTE | 2022-09-28 10:27 | PC.NURSE ---
Spoke with Hospitalist about pts + sputum culture
--- NOTE | 2022-09-28 16:59 | EXP.DC.SUM ---
General Admission date:: 09/26/22 Discharge date: 09/28/22 HPI HPI HPI: Ms. Rush is a 56-year-old female well know to this facility from prior admissions.? She has a past medical history per chart review that is positive for COPD, Severe Aortic Regurgitation, Bronchiectasis, Hepatitis C, Chronic Pain Syndrome, Anxiety Disorder, HTN, Hyperlipidemia and Diastolic CHF. She presents to [facility] through the ER today secondary to shortness of air.? The patient was seen on admission in the ER.? She reports that her trouble with breathing started today, she reports in addition to difficulty breathing that she is hurting all over.? In the ER, Cxray obtained was concerning for Atelectasis.? CBC and BMP were unremarkable. ABG showed a combined Respiratory and Metabolic Acidosis.? In the ER, the patient received Solu-Medrol and Nebulizers.? COVID and Flu testing were negative. The patient will be admitted with initial impression:? COPD exacerbation.? Pulmonary will be consulted to see.? The patient will be placed on Nebulizers, Steroids and antibiotics.? The plan of care was discussed with the patient at bedside.? The patient verbalized understanding and agreement with the plan of care. ? Hospital Course Hospital Course Hospital Course: The patient was admitted to the medical floor with pulmonology consult. Blood and sputum cultures were acquired. She was started on IV Levaquin while awaiting culture results. Routine labs and inflammatory markers were trended. Her oxygen requirements continued to be 1 L above home baseline requirement. She continue with inhalation therapy and IV steroid therapy. The patient complained that she was due for a Suboxone therapy follow-up and did not want to miss her appointment so she elected to leave [place]. Her sputum culture grew out MDR Klebsiella ESBL positive with sensitivities reported. Pulmonology recommended IM ertapenem secondary to her previous illicit drug use. I am accompanied by nursing staff (Frieda DUENAS) to discuss the patient's desire to leave [place]. The patient is not intoxicated. She is free from distracting pain and appears to have intact insight, judgment and reason during my evaluation. In my medical opinion, she has the capacity to make decisions. The patient is also not under any duress to leave the hospital. In this scenario, it would be battery to subject a patient to treatment against his/her will. I have voiced my concerns for the patient's health given that a full evaluation and treatment have not occurred. I have discussed the need for continued evaluation and treatment secondary to her diagnoses that present risk of or morbidity. Risks including but not limited to permanent disability, prolonged hospitalization, prolonged illness and were discussed. The patient insisted on leaving AMA. She voiced taking responsibility for her decision making. Because I have been unable to convince the patient to stay, I offered her the opportunity to ask questions about her condition and to return to the ED with any concerns. I emphasized that leaving against medical advice does not preclude returning here for further evaluation. I strongly encouraged the patient to return to any Emergency Department at any time, particularly with worsening symptoms.? Exam Data for Last 24 hours Vital signs and Labs for Last 24 Hours: Temp Pulse Resp BP Pulse Ox 98.2 F 80 18 124/71 92 L 09/28/22 08:00 09/28/22 09:57 09/28/22 08:00 09/28/22 08:00 09/28/22 10:08 Laboratory Results - last 24 hr 09/28/22 08:10: WBC 9.9, RBC 3.76 L, Hgb 10.1 L, Hct 32.8 L, MCV 87.3, MCH 26.7 L, MCHC 30.6 L, RDW 20.8 H, Plt Count 296, MPV 8.2, Neut % (Auto) 87.6 H, Lymph % (Auto) 5.6 L, [place] % (Auto) 5.3, Eos % (Auto) 1.1, Baso % (Auto) 0.4, Neut # (Auto) 8.6 H, Lymph # (Auto) 0.6 L, [place] # (Auto) 0.5, Eos # (Auto) 0.1, Baso # (Auto) 0.0, Total Counted 100, Neutrophils % (Manual) 93 H, Lymphocytes % (Manual) 5 L,
--- NOTE | 2022-10-05 13:46 | CARE MANAGER ---
Attempted to contact patient related to hospital discharge x 3. No VM option. YULISSA Cortes
== END 2022-09-28 12:49 | disposition left against medical advice (07) ==
LOC: ER 03:30 → 2ND 04:47
PROVIDERS: Internal Medicine Pulmonary Disease; Nurse Practitioner Family; Admitting Provider Family Medicine; Emergency Provider Emergency Medicine; PCP Emergency Medicine; Visit Provider Family Medicine
DX: J44.1 Chronic obstructive pulmonary disease with (acute) exacerbation (principal); I35.1 Nonrheumatic aortic (valve) insufficiency; G89.4 Chronic pain syndrome; I25.10 Atherosclerotic heart disease of native coronary artery without angina pectoris; I11.0 Hypertensive heart disease with heart failure; I50.30 Unspecified diastolic (congestive) heart failure; J15.6 Pneumonia due to other Gram-negative bacteria; F17.210 Nicotine dependence, cigarettes, uncomplicated; Z79.899 Other long term (current) drug therapy; E78.5 Hyperlipidemia, unspecified
CPT/HCPCS: 36415; 71045; 80048; 80053; 81001; 82803; 83605; 83880; 84484; 85007; 85025; 87040; 87070; 87077; 87116; 87186; 87205; 87206; 87220; 93005; 94640; 94667; 94668; 94761; 99285; C9803; G0378; J0574; J1335; J1956; U0003; U0005

== ENCOUNTER 2022-10-01 13:05 | Outpatient (CLI) | payer OTHER, SELFPAY ==
[2022-10-01 14:30] VITALS: BP 154/88; PULSE 105; RESP 20; RESP 24; TEMP 35.8; O2SAT 92; O2SAT 93
== END 2022-10-01 14:30 | disposition home or self-care (01) ==
LOC: INF 13:06
PROVIDERS: PCP Emergency Medicine; Visit Provider Family Medicine
DX: J18.9 Pneumonia, unspecified organism (principal)
CPT/HCPCS: 96372; J1335

== ENCOUNTER 2022-10-02 15:07 | Outpatient (CLI) | payer OTHER, SELFPAY ==
[2022-10-02 15:30] VITALS: BP 113/72; PULSE 101; RESP 23; TEMP 36.1; O2SAT 91
== END 2022-10-02 15:30 | disposition home or self-care (01) ==
LOC: INF 15:08
PROVIDERS: PCP Emergency Medicine; Visit Provider Family Medicine
DX: J18.9 Pneumonia, unspecified organism (principal)
CPT/HCPCS: 96372; J1335

== ENCOUNTER → 2022-10-23 12:47 | Outpatient (CLI) | payer OTHER, SELFPAY ==
[2022-10-23 18:51] LABS: Amphetamine/Metha Screen,Urine Negative ng/ml (<1000)
[2022-10-23 18:52] LABS: Barbiturates Screen,Urine Negative ng/ml (<200)
[2022-10-23 18:53] LABS: Benzodiazepines Screen,Urine Negative ng/ml (<200); Cannabinoid Screen,Urine Negative ng/ml (<50)
[2022-10-23 18:54] LABS: Cocaine Screen,Urine Negative ng/ml (<300); Methadone Screen,Urine Negative ng/ml (<300)
[2022-10-23 18:55] LABS: Opiate Screen,Urine Negative ng/ml (<300)
[2022-10-23 18:57] LABS: Phencyclidine Screen,Urine Negative ng/ml (<25)
== END ==
PROVIDERS: PCP Emergency Medicine; Visit Provider Emergency Medicine
DX: Z79.899 Other long term (current) drug therapy (principal)
CPT/HCPCS: 80305

== ENCOUNTER 2022-10-29 13:09 | Emergency (ER) | payer OTHER, SELFPAY ==
[2022-10-29 13:09] VITALS: BP 146/83; PULSE 100; RESP 22; TEMP 36.8; O2SAT 92; BMI 23.8
--- NOTE | 2022-10-29 13:16 | ECG_ITS ---
APPROVED REPORT Exam: Resting ECG HR:98 bpm ECG Measurements Heart Rate 98 AXES DE 125 P 62 QRSd 83 QRS 60 QT 329 T 61 QTc 384 Conclusion SINUS RHYTHM NONSPECIFIC T-WAVE ABNORMALITY BORDERLINE ECG UNCONFIRMED REPORT Electronically signed by : Evaristo Gonzalez MD 10/29/2022 21:08:59
--- NOTE | 2022-10-29 13:22 | PC.NURSE ---
RT aware of breathing treatment. Spoke with Charla
--- NOTE | 2022-10-29 13:31 | PC.NURSE ---
Dr. Franklin at
--- NOTE | 2022-10-29 13:36 | HMH.EDGENADL ---
Discharge Plan Disposition Patient Disposition: Admitted As Inpatient Condition: Serious Prescriptions Prescriptions: No Action buprenorphine-naloxone 8-2 mg tablet, sublingual 2 tab SL DAILY ondansetron HCl 4 mg tablet 4 mg PO TIDP PRN (Reason: Nausea) ferrous sulfate 325 mg (65 mg iron) tablet 325 mg PO DAILY folic acid 1 mg tablet 1 mg PO DAILY nicotine (polacrilex) 2 mg gum 2 mg buccal Q2H PRN (Reason: nicotine cravings) Qty: 396 0RF Rx Instructions: Weeks 1 to 6: Chew 1 piece every 2 hours As NEEDED Weeks 7 to 9: Chew 1 piece every 4 hors As NEEDED Weeks 1o to 12: Chew 1 piece every 8 hours As NEEDED prednisone 20 mg tablet See Rx Instructions .Route .COMPLEX Qty: 15 0RF Rx Instructions: Take 1 tablet twice daily for 5 days, then Take 1 tablet daily for 5 days; clonazepam 0.5 mg tablet 0.5 mg PO TID Qty: 90 1RF gabapentin 300 mg capsule 300 mg PO TID Qty: 90 1RF ipratropium-albuterol 0.5 mg-3 mg(2.5 mg base)/3 mL solution for nebulization 3 ml inhalation QID PRN (Reason: shortness of breath) Qty: 180 3RF aspirin 81 mg tablet,delayed release (DR/EC) 81 mg PO DAILY Qty: 90 1RF calcium carbonate-vitamin D3 600 mg-10 mcg (400 unit) tablet See Rx Instructions .ROUTE .COMPLEX Qty: 30 0RF Dose Instruction: TAKE ONE TABLET BY MOUTH ONCE A DAY Rx Instructions: TAKE ONE TABLET BY MOUTH ONCE A DAY omeprazole 40 mg capsule,delayed release(DR/EC) See Rx Instructions .ROUTE .COMPLEX Qty: 30 0RF Dose Instruction: TAKE ONE CAPSULE BY MOUTH ONCE A DAY FOR GERD Rx Instructions: TAKE ONE CAPSULE BY MOUTH ONCE A DAY FOR GERD estradiol 1 mg tablet See Rx Instructions .ROUTE .COMPLEX Qty: 30 0RF Dose Instruction: TAKE ONE TABLET BY MOUTH ONCE A DAY Rx Instructions: TAKE ONE TABLET BY MOUTH ONCE A DAY albuterol sulfate [ProAir HFA] 90 mcg/actuation HFA aerosol inhaler See Rx Instructions .ROUTE .COMPLEX Qty: 8.5 0RF Dose Instruction: INHALE 2 PUFFS BY MOUTH EVERY 6 HOURS Rx Instructions: INHALE 2 PUFFS BY MOUTH EVERY 6 HOURS tizanidine 4 mg tablet 4 mg PO Q8H PRN (Reason: muscle spasticity) Qty: 90 0RF buspirone 5 mg tablet 5 mg PO TID Qty: 90 2RF nicotine 21 MG/PATCH patch 24 hour 21 mg TD DAILYP PRN (Reason: Nicotine Cravings) Qty: 30 0RF rosuvastatin 5 MG tablet 5 mg PO DAILY risperidone 2 mg tablet 2 mg PO HS furosemide 20 mg tablet 20 mg PO DAILY Rx Instructions: TAKE ONE TABLET BY MOUTH ONCE A DAY megestrol 625 mg/5 mL (125 mg/mL) suspension 625 mg PO DAILY Rx Instructions: TAKE 1 TEASPOONFUL (5ML) BY MOUTH ONCE A DAY Trelegy Ellipta 100-62.5-25 mcg blister with device 1 inh inhalation DAILY Rx Instructions: INHALE 1 PUFF BY MOUTH ONCE A DAY famotidine 40 mg tablet 40 mg PO DAILY Rx Instructions: TAKE ONE TABLET BY MOUTH ONCE A DAY clopidogrel 75 mg tablet 75 mg PO DAILY Rx Instructions: TAKE ONE TABLET BY MOUTH ONCE A DAY bupropion HCl 75 mg tablet 75 mg PO BID Rx Instructions: TAKE ONE TABLET BY MOUTH 2 TIMES A DAY escitalopram oxalate 20 mg tablet 20 mg PO DAILY Rx Instructions: TAKE ONE TABLET BY MOUTH ONCE A DAY metoprolol succinate 25 mg tablet extended release 24 hr 25 mg PO DAILY Referrals Follow up/Referrals: Chuck Pineda MD [Primary Care Provider] - See instructions Discharge ED Provider: [facility] HPI General Chief complaint: Shortness of Breath/Dyspnea Stated complaint: Shortness of Air Time Seen by Provider: 10/29/22 13:29 Mode of Arrival: EMS Limitations: No Limitations Description of Symptoms (Recalled from ER Triage Doc. by RN): BROUGHT IN VIA EMS FOR COUGH AND INCREASED SHORTNESS OF BREATH History of Present Illness HPI narrative: Patient presents complaining of shortness of air that began yes
--- NOTE | 2022-10-29 13:41 | PC.NURSE ---
patient given warm blankets at this time; call light within reach
[2022-10-29 13:43] LABS: ABG Base Excess -7.1 mmol/L (-2.4-2.3); ABG HCO3 19.6 mmhg (22.0-26.0); ABG Oxygen Saturation 90 % (90-100); ABG PCO2 42.4 mmhg (35.0-45.0); ABG PH 7.28 mmol/L (7.35-7.45); ABG PO2 62.8 mmhg (80-100); ABG TCO2 20.9 mmhg (23-27)
[2022-10-29 13:45] VITALS: PULSE 95; PULSE 97; O2SAT 93
[2022-10-29 13:49] LABS: Coronavirus 19, PCR Not Detected (NotDetected); Influenza A, PCR Not Detected (NotDetected); Influenza B, PCR Not Detected (NotDetected); Microscopic, Urine URINE MICROSCOPIC (MICROSCOPIC)
[2022-10-29 13:50] LABS: Appearance,Urine CLEAR (Clear); Bilirubin,Urine Negative (Negative); Blood, Urine Negative (Negative); Color,Urine YELLOW (Yellow); Glucose,Urine (UA) Negative (Negative); Ketones,Urine Negative (Negative); Leukocyte Esterase,Urine Negative (Negative); Nitrate,Urine Negative (Negative); PH,Urine 6.5 (5.0-8.5); Protein,Urine Negative (Negative); Specific Gravity, Urine <= 1.005 (1.005-1.030); Urobilinogen,Urine 0.2 EU/dl (0.2)
[2022-10-29 13:51] LABS: Allen's Test Acceptable; Oxygen 6 LPM NC %; Source Right Radial
[2022-10-29 13:52] LABS: Basophils # 0.1 K/mm3 (0-0.2); Basophils % 0.7 % (0.1-2.0); Eosinophils # 0.1 K/mm3 (0.0-0.4); Eosinophils % 0.5 % (0.1-12.0); Hematocrit 38.3 % (37.0-47.0); Hemoglobin 11.6 g/dL (12.2-16.2); Lymphocytes # 1.3 K/mm3 (0.7-4.5); Lymphocytes % 7.6 % (10-50); Mean Corpuscular HGB Conc 30.3 g/dL (31.8-35.4); Mean Corpuscular Hemoglobin 26.8 pg (27.0-31.2); Mean Corpuscular Volume 88.5 fl (81-99); Mean Platelet Volume 8.3 fl (7.4-10.4); Monocytes # 0.7 K/mm3 (0.1-1.0); Monocytes % 4.2 % (1.7-9.3); Neutrophils # 14.6 K/mm3 (1.8-7.8); Neutrophils % 87.1 % (37.0-80.0); Platelet Count 382 K/mm3 (142-424); Red Blood Count 4.33 M/mm3 (4.20-5.40); Red Cell Distribution Width 20.1 % (11.5-17.5); White Blood Count 16.7 K/mm3 (4.8-10.8)
[2022-10-29 13:54] LABS: Chloride 112 mmol/L (98-107)
[2022-10-29 13:55] LABS: Potassium 3.5 mmoL/L (3.5-5.1); Sodium 146 mmol/L (136-145)
[2022-10-29 13:57] LABS: Alanine Aminotransferase 17 U/L (12-78); Albumin Level 3.9 g/dl (3.5-5.0); Albumin/Globulin Ratio 1.2 (1.1-1.8); Alkaline Phosphatase 78 U/L (38-126); Anion Gap 14.5 mEq/L (5-15); Aspartate Amino Transferase 21 U/L (14-36); Blood Urea Nitrogen 23 mg/dl (7-17); Carbon Dioxide 23 mmol/L (22.0-30.0); Creatinine Clearance Estimated 39 mL/min (50-200); Estimated Glomerular Filt Rate 36 ml/min (>60); GFR (African American) 44 ML/MIN (>60); Globulin 3.2 g/dL (1.3-3.2); Total Protein,Serum 7.1 g/dl (6.3-8.2)
[2022-10-29 13:58] LABS: Calcium 9.1 mg/dl (8.4-10.2); Glucose 133 mg/dl (74-100)
[2022-10-29 13:59] LABS: Bilirubin,Total < 0.1 mg/dl (0.2-1.3); MANUAL DIFFERENTIAL MANUAL DIFFERENTIAL (MANUAL DIFF)
[2022-10-29 14:00] VITALS: BP 138/91; PULSE 96; O2SAT 94
[2022-10-29 14:07] LABS: NT Pro Brain Natriuretic Pep. 976 pg/mL (0-125)
[2022-10-29 14:09] LABS: Bacteria,Urine Trace /lpf; Squamous Epithelial Cell,Urine Occasional #/hpf (0-5)
[2022-10-29 14:11] LABS: Troponin I < 0.01 ng/ml (0.00-0.034)
[2022-10-29 14:19] LABS: Lymphocytes % 18 % (10-50); Monocytes % 4 % (2-9); Neutrophils % 78 % (42-76); RBC Morphology Normal; Total Cells Counted 100
[2022-10-29 14:20] LABS: Platelet Estimate Normal
[2022-10-29 14:31] LABS: Lactic Acid 1.4 mmol/L (0.7-2.1)
--- NOTE | 2022-10-29 14:54 | XR_ITS ---
FINAL REPORT CLINICAL HISTORY: soa COMPARISON: 09/27/2022 FINDINGS: PORTABLE CHEST The heart is normal in size. The mediastinum is unremarkable. There are mild increased markings in bilateral lung bases and left perihilar region, favor pneumonia over interstitial edema. Coarse linear density in the retrocardiac region and leg lung base is likely mild atelectasis. There is no pleural effusion. There is no pneumothorax. IMPRESSION: Persistent increased markings in bilateral lung bases, favor pneumonia. Correlate with clinical presentation. Reviewed, Interpreted and Dictated by Johnathon Kumar MD Transcribed by Lisa Bryson Authenticated and [facility]
--- NOTE | 2022-10-29 14:59 | PC.NURSE ---
XR AT BEDSIDE
--- NOTE | 2022-10-29 15:27 | PC.NURSE ---
DR. SCOTT AT BEDSIDE, PT REQUESTING TO LEAVE. DAUGHTER AT BEDSIDE.
--- NOTE | 2022-10-29 15:34 | EXP.PHA.CONS ---
Pharmacy Consult Date: 10/29/22 Time: 15:34 Referring provider: DR. SCOTT Reason for Consult:: VANCOMYCIN DOSING Allergies Allergy/AdvReac Type Severity Reaction Status Date / Time atorvastatin AdvReac Intermediate myalgia Verified 10/23/22 11:25 aspirin [ASPIRIN] AdvReac Unknown Verified 10/23/22 11:25 codeine [CODEINE] AdvReac Unknown Verified 10/23/22 11:25 propoxyphene [PROPOXYPHENE] AdvReac Unknown Verified 10/23/22 11:25 tramadol [TRAMADOL] AdvReac Unknown Verified 10/23/22 11:25 Home Medications Medication Instructions Recorded Confirmed Type buprenorphine 8 mg-naloxone 2 mg 2 tab sublingual DAILY opioid use 03/22/21 10/23/22 History sublingual tablet disorder nicotine 21 mg/24 hr daily 21 mg transdermal DAILYP PRN 05/11/22 10/23/22 Rx transdermal patch Nicotine Cravings #30 patches rosuvastatin 5 mg tablet 5 mg PO DAILY hyperlipidemia 06/24/22 10/23/22 History ondansetron HCl 4 mg tablet 4 mg PO TIDP PRN Nausea 07/16/22 10/23/22 History risperidone 2 mg tablet 2 mg PO HS Restless leg 08/04/22 10/23/22 History ipratropium 0.5 mg-albuterol 3 mg 3 ml inhalation QID PRN shortness 08/17/22 10/23/22 Rx (2.5 mg base)/3 mL nebulization of breath #180 mL soln ferrous sulfate 325 mg (65 mg 325 mg PO DAILY Supplement 08/27/22 10/23/22 History iron) tablet folic acid 1 mg tablet 1 mg PO DAILY Supplement 08/27/22 10/23/22 History nicotine (polacrilex) 2 mg gum 2 mg buccal Q2H PRN nicotine 08/27/22 10/23/22 Rx cravings #396 ea bupropion HCl 75 mg tablet 75 mg PO BID Depression 09/26/22 10/23/22 History clopidogrel 75 mg tablet 75 mg PO DAILY coronary artery 09/26/22 10/23/22 History disease escitalopram oxalate 20 mg tablet 20 mg PO DAILY Anxiety 09/26/22 10/23/22 History famotidine 40 mg tablet 40 mg PO DAILY acid reflux 09/26/22 10/23/22 History fluticasone fur. 100 mcg-umeclid 1 inh inhalation DAILY COPD 09/26/22 10/23/22 History 62.5 mcg-vilant 25 mcg inhalat.powder (Trelegy Ellipta) furosemide 20 mg tablet 20 mg PO DAILY congestive heart 09/26/22 10/23/22 History failure megestrol 625 mg/5 mL (125 mg/mL) 625 mg PO DAILY Supplement 09/26/22 10/23/22 History oral suspension metoprolol succinate 25 mg 25 mg PO DAILY Hypertension 09/26/22 10/23/22 History tablet,extended release 24 hr aspirin 81 mg tablet,delayed 81 mg PO DAILY Coronary artery 10/15/22 10/23/22 Rx release disease #90 tabs calcium carbonate 600 mg-vitamin See Rx Instructions .Route 10/15/22 10/23/22 Rx D3 10 mcg (400 unit) tablet .COMPLEX #30 tabs omeprazole 40 mg capsule,delayed See Rx Instructions .Route 10/15/22 10/23/22 Rx release .COMPLEX #30 caps estradiol 1 mg tablet See Rx Instructions .Route 10/16/22 10/23/22 Rx .COMPLEX #30 tabs albuterol sulfate 90 mcg/actuation See Rx Instructions .Route 10/18/22 10/23/22 Rx aerosol inhaler (ProAir HFA) .COMPLEX #8.5 grams tizanidine 4 mg tablet 4 mg PO Q8H PRN muscle spasticity 10/19/22 10/23/22 Rx #90 tabs buspirone 5 mg tablet 5 mg PO TID #90 tabs 10/22/22 10/23/22 Rx clonazepam 0.5 mg tablet 0.5 mg PO TID Anxiety #90 tabs 10/23/22 10/23/22 Rx gabapentin 300 mg capsule 300 mg PO TID nerve pain #90 caps 10/23/22 10/23/22 Rx prednisone 20 mg tablet See Rx Instructions .Route 10/23/22 10/23/22 Rx .COMPLEX #15 tabs New Prescriptions to Start Prescriptions: Height: 1.57 m Weight: 58.967 kg Laboratory Results:: Laboratory Results - last 24 hr 10/29/22 13:30: Urine Color Yellow, Urine Appearance Clear, Urine pH 6.5, Ur Specific [place] <= 1.005, Urine Protein Negative, Urine Glucose (UA) Negative, Urine Ketones Negative, Urine Blood Negative, Urine Nitrate Negative, Urine Bilirubin Negative, Urine Urobilinogen 0.2, Ur Leukocyte Esterase Negative, Urine RBC None, Urine WBC None, Ur Squamous Epith Cells Occasional, Urine Bacteria Trace 10/29/22 13:30: WBC 16.7 H, RBC 4.33, Hgb 11.6 L, Hct 38.3, MCV 88.5, MCH 26.8 L, MCHC 30.3 L, RDW 20.1 H, Plt Count 382, MP
--- NOTE | 2022-10-29 15:43 | PC.NURSE ---
PT STATES SHE HAS A RIDE AND SHE IS LEAVING PT INFORMED SHE IS VERY SICK AND SHOULD STAY FOR TREATMENT. PT INSISTS SHE HAS A RIDE AND SHE IS LEAVING
--- NOTE | 2022-10-29 16:00 | PC.NURSE ---
1500 PT REFUSES TO WEAR O2 MONITOR, HAS TAKEN OFF BLOOD PRESSURE CUFF, STATES SHE IS NOT STAYING
--- NOTE | 2022-10-29 16:10 | PC.NURSE ---
1610 PT INSISTS TO LEAVE, DR. SCOTT AT BEDSIDE TO DISCUSS PT'S WISHES. DR. SCOTT DISCUSSED IN DETAIL RISKS OF PT LEAVING. PT CONTINUES TO WANT TO LEAVE. VISITOR IN THE ROOM AND PRESENT FOR DR. SCOTT'S CONCERNS. PT EDUCATED MULTIPLE TIMES ON RISKS, AND INSTRUCTED TO RETURN FOR CARE. PT A&O X 4. AMA FORM SIGNED BY PT AT THIS TIME, PT V/U
[2022-10-29 16:20] VITALS: BP 168/98; PULSE 90; RESP 24; TEMP 36.7; O2SAT 95
== END 2022-10-29 16:15 | disposition left against medical advice (07) ==
PROVIDERS: Emergency Provider Emergency Medicine; PCP Emergency Medicine
DX: J44.1 Chronic obstructive pulmonary disease with (acute) exacerbation (principal); J18.9 Pneumonia, unspecified organism; Z53.20 Procedure and treatment not carried out because of patient's decision for unspecified reasons; Z79.899 Other long term (current) drug therapy; Z79.51 Long term (current) use of inhaled steroids; Z88.6 Allergy status to analgesic agent; Z88.5 Allergy status to narcotic agent; I25.10 Atherosclerotic heart disease of native coronary artery without angina pectoris; F41.9 Anxiety disorder, unspecified; D64.9 Anemia, unspecified; I50.9 Heart failure, unspecified; F32.A Depression, unspecified; E78.5 Hyperlipidemia, unspecified; M81.0 Age-related osteoporosis without current pathological fracture
CPT/HCPCS: 71045; 80053; 81001; 82803; 83605; 83880; 84484; 85007; 85025; 87040; 93005; 94640; 96365; 96375; 99285; C9803; J0692; U0003; U0005

== ENCOUNTER 2022-10-29 18:48 | Inpatient (IN) | payer OTHER, SELFPAY ==
[2022-10-29 18:49] VITALS: BP 128/106; PULSE 93; RESP 32; TEMP 36.6; O2SAT 96; BMI 24.7
--- NOTE | 2022-10-29 18:58 | HMH.EDGENADL ---
Discharge Plan Disposition Chief Complaint: Shortness of Breath/Dyspnea Discharge ED Provider: [facility] HPI General Chief complaint: Shortness of Breath/Dyspnea Stated complaint: SOA Time Seen by Provider: 10/29/22 18:53 History of Present Illness HPI narrative: Patient represents with respiratory failure after having left AGAINST MEDICAL ADVICE just a short while ago. Patient physical are limited due to patient being obtunded presently. Refer you to the earlier note for additional details of her history. Related Data Home Medications Medication Instructions Recorded Confirmed buprenorphine 8 mg-naloxone 2 mg 2 tab sublingual DAILY opioid use 03/22/21 10/23/22 sublingual tablet disorder rosuvastatin 5 mg tablet 5 mg PO DAILY hyperlipidemia 06/24/22 10/23/22 ondansetron HCl 4 mg tablet 4 mg PO TIDP PRN Nausea 07/16/22 10/23/22 risperidone 2 mg tablet 2 mg PO HS Restless leg 08/04/22 10/23/22 ferrous sulfate 325 mg (65 mg 325 mg PO DAILY Supplement 08/27/22 10/23/22 iron) tablet folic acid 1 mg tablet 1 mg PO DAILY Supplement 08/27/22 10/23/22 bupropion HCl 75 mg tablet 75 mg PO BID Depression 09/26/22 10/23/22 clopidogrel 75 mg tablet 75 mg PO DAILY coronary artery 09/26/22 10/23/22 disease escitalopram oxalate 20 mg tablet 20 mg PO DAILY Anxiety 09/26/22 10/23/22 famotidine 40 mg tablet 40 mg PO DAILY acid reflux 09/26/22 10/23/22 fluticasone fur. 100 mcg-umeclid 1 inh inhalation DAILY COPD 09/26/22 10/23/22 62.5 mcg-vilant 25 mcg inhalat.powder (Trelegy Ellipta) furosemide 20 mg tablet 20 mg PO DAILY congestive heart 09/26/22 10/23/22 failure megestrol 625 mg/5 mL (125 mg/mL) 625 mg PO DAILY Supplement 09/26/22 10/23/22 oral suspension metoprolol succinate 25 mg 25 mg PO DAILY Hypertension 09/26/22 10/23/22 tablet,extended release 24 hr Previous Rx's Medication Instructions Recorded nicotine 21 mg/24 hr daily 21 mg transdermal DAILYP PRN 05/11/22 transdermal patch Nicotine Cravings #30 patches ipratropium 0.5 mg-albuterol 3 mg 3 ml inhalation QID PRN shortness 08/17/22 (2.5 mg base)/3 mL nebulization of breath #180 mL soln nicotine (polacrilex) 2 mg gum 2 mg buccal Q2H PRN nicotine 08/27/22 cravings #396 ea aspirin 81 mg tablet,delayed 81 mg PO DAILY Coronary artery 10/15/22 release disease #90 tabs calcium carbonate 600 mg-vitamin See Rx Instructions .Route 10/15/22 D3 10 mcg (400 unit) tablet .COMPLEX #30 tabs omeprazole 40 mg capsule,delayed See Rx Instructions .Route 10/15/22 release .COMPLEX #30 caps estradiol 1 mg tablet See Rx Instructions .Route 10/16/22 .COMPLEX #30 tabs albuterol sulfate 90 mcg/actuation See Rx Instructions .Route 10/18/22 aerosol inhaler (ProAir HFA) .COMPLEX #8.5 grams tizanidine 4 mg tablet 4 mg PO Q8H PRN muscle spasticity 10/19/22 #90 tabs buspirone 5 mg tablet 5 mg PO TID #90 tabs 10/22/22 clonazepam 0.5 mg tablet 0.5 mg PO TID Anxiety #90 tabs 10/23/22 gabapentin 300 mg capsule 300 mg PO TID nerve pain #90 caps 10/23/22 prednisone 20 mg tablet See Rx Instructions .Route 10/23/22 .COMPLEX #15 tabs Allergies Allergy/AdvReac Type Severity Reaction Status Date / Time atorvastatin AdvReac Intermediate myalgia Verified 10/23/22 11:25 aspirin [ASPIRIN] AdvReac Unknown Verified 10/23/22 11:25 codeine [CODEINE] AdvReac Unknown Verified 10/23/22 11:25 propoxyphene [PROPOXYPHENE] AdvReac Unknown Verified 10/23/22 11:25 tramadol [TRAMADOL] AdvReac Unknown Verified 10/23/22 11:25 PFSH PFSH 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 Abnormal ECG Acute exacerbation of chronic obstructive airways disease Acute exacerbation of chronic obstructive airways disease HUGO (acute kidney injury) Anemia Anxiety Aortic regurgitation Apnea Atypical chest pain Back Pain Bilateral lower extremity edema Bronchiectasis with acute lower respiratory infection Bronchiectasis without acute exacerbation CAD (coronary artery dise
[2022-10-29 19:07] LABS: ABG Base Excess -6.5 mmol/L (-2.4-2.3); ABG Oxygen Saturation 97 % (90-100); ABG PCO2 42.1 mmhg (35.0-45.0); ABG PO2 92.8 mmhg (80-100); ABG TCO2 21.3 mmhg (23-27); Oxygen 30% %; Vent Rate 20
[2022-10-29 19:08] VITALS: RESP 20; RESP 24
[2022-10-29 19:08] LABS: PEEP 5; Source Left Radial
--- NOTE | 2022-10-29 19:55 | HMH.EDGENADL ---
Discharge Plan Disposition Chief Complaint: Shortness of Breath/Dyspnea Discharge ED Provider: [facility] HPI General Chief complaint: Shortness of Breath/Dyspnea Stated complaint: SOA Time Seen by Provider: 10/29/22 18:53 History of Present Illness HPI narrative: Patient Sandra presents with respiratory failure after having left AGAINST MEDICAL ADVICE shortly prior to this presentation. On arrival she is in state of respiratory failure and is obtunded and therefore history is limited due to her obtunded mental status. Symptoms are severe. Related Data Home Medications Medication Instructions Recorded Confirmed buprenorphine 8 mg-naloxone 2 mg 2 tab sublingual DAILY opioid use 03/22/21 10/23/22 sublingual tablet disorder rosuvastatin 5 mg tablet 5 mg PO DAILY hyperlipidemia 06/24/22 10/23/22 ondansetron HCl 4 mg tablet 4 mg PO TIDP PRN Nausea 07/16/22 10/23/22 risperidone 2 mg tablet 2 mg PO HS Restless leg 08/04/22 10/23/22 ferrous sulfate 325 mg (65 mg 325 mg PO DAILY Supplement 08/27/22 10/23/22 iron) tablet folic acid 1 mg tablet 1 mg PO DAILY Supplement 08/27/22 10/23/22 bupropion HCl 75 mg tablet 75 mg PO BID Depression 09/26/22 10/23/22 clopidogrel 75 mg tablet 75 mg PO DAILY coronary artery 09/26/22 10/23/22 disease escitalopram oxalate 20 mg tablet 20 mg PO DAILY Anxiety 09/26/22 10/23/22 famotidine 40 mg tablet 40 mg PO DAILY acid reflux 09/26/22 10/23/22 fluticasone fur. 100 mcg-umeclid 1 inh inhalation DAILY COPD 09/26/22 10/23/22 62.5 mcg-vilant 25 mcg inhalat.powder (Trelegy Ellipta) furosemide 20 mg tablet 20 mg PO DAILY congestive heart 09/26/22 10/23/22 failure megestrol 625 mg/5 mL (125 mg/mL) 625 mg PO DAILY Supplement 09/26/22 10/23/22 oral suspension metoprolol succinate 25 mg 25 mg PO DAILY Hypertension 09/26/22 10/23/22 tablet,extended release 24 hr Previous Rx's Medication Instructions Recorded nicotine 21 mg/24 hr daily 21 mg transdermal DAILYP PRN 05/11/22 transdermal patch Nicotine Cravings #30 patches ipratropium 0.5 mg-albuterol 3 mg 3 ml inhalation QID PRN shortness 08/17/22 (2.5 mg base)/3 mL nebulization of breath #180 mL soln nicotine (polacrilex) 2 mg gum 2 mg buccal Q2H PRN nicotine 08/27/22 cravings #396 ea aspirin 81 mg tablet,delayed 81 mg PO DAILY Coronary artery 10/15/22 release disease #90 tabs calcium carbonate 600 mg-vitamin See Rx Instructions .Route 10/15/22 D3 10 mcg (400 unit) tablet .COMPLEX #30 tabs omeprazole 40 mg capsule,delayed See Rx Instructions .Route 10/15/22 release .COMPLEX #30 caps estradiol 1 mg tablet See Rx Instructions .Route 10/16/22 .COMPLEX #30 tabs albuterol sulfate 90 mcg/actuation See Rx Instructions .Route 10/18/22 aerosol inhaler (ProAir HFA) .COMPLEX #8.5 grams tizanidine 4 mg tablet 4 mg PO Q8H PRN muscle spasticity 10/19/22 #90 tabs buspirone 5 mg tablet 5 mg PO TID #90 tabs 10/22/22 clonazepam 0.5 mg tablet 0.5 mg PO TID Anxiety #90 tabs 10/23/22 gabapentin 300 mg capsule 300 mg PO TID nerve pain #90 caps 10/23/22 prednisone 20 mg tablet See Rx Instructions .Route 10/23/22 .COMPLEX #15 tabs Allergies Allergy/AdvReac Type Severity Reaction Status Date / Time atorvastatin AdvReac Intermediate myalgia Verified 10/23/22 11:25 aspirin [ASPIRIN] AdvReac Unknown Verified 10/23/22 11:25 codeine [CODEINE] AdvReac Unknown Verified 10/23/22 11:25 propoxyphene [PROPOXYPHENE] AdvReac Unknown Verified 10/23/22 11:25 tramadol [TRAMADOL] AdvReac Unknown Verified 10/23/22 11:25 [facility] 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 Abnormal ECG Acute exacerbation of chronic obstructive airways disease Acute exacerbation of chronic obstructive airways disease HUGO (acute kidney injury) Anemia Anxiety Aortic regurgitation Apnea Atypical chest pain Back Pain Bilateral lower extremity edema Bronchiectasis with acute lower respiratory infection Bronchiectasis without acute exacer
[2022-10-29 19:56] VITALS: BMI 24.0
[2022-10-29 20:00] VITALS: O2SAT 98
[2022-10-29 21:00] VITALS: BP 167/97; PULSE 115; RESP 32; TEMP 36.6; O2SAT 95
--- NOTE | 2022-10-29 21:05 | PC.NURSE ---
pt is alert to name, unable to answer questions appropriately at this time, pt on bipap machine, pt will sleep mostly unless awoken by name calling, VSS, no acute distress.
[2022-10-29 21:11] VITALS: RESP 20; RESP 30; O2SAT 98
--- NOTE | 2022-10-29 21:30 | PC.NURSE ---
pt on bipap upon arrival to floor, pt is lethargic and sleeps mostly, pt is unable to answer questions regarding medical history, history obtained from medical record. med reconciliation completion will need to be completed once pharmacy is open and pt is more alert.
--- NOTE | 2022-10-29 21:46 | EXP.ACUTE.PN ---
Subjective *Date: 10/29/22 *Time: 21:46 Interval history: Patient is a 56-year-old female who was evaluated in the emergency department twice today for shortness of breath. Transverse evaluation patient was found to have a right Medical Exam Vital signs and Labs for Last 24 Hours: Vital Signs Temp Pulse Pulse Resp BP BP Pulse Ox 10/29/22 21:11 98 10/29/22 21:11 10/29/22 21:00 98 F 115 H 32 H 167/97 H 10/29/22 19:08 10/29/22 18:49 98 F 93 H 32 H 128/106 H 96 FiO2 10/29/22 21:11 30 10/29/22 21:11 30 10/29/22 21:00 10/29/22 19:08 30 10/29/22 18:49 Intake and Output 10/29/22 10/29/22 10/29/22 07:59 15:59 23:59 Other: Weight 61.235 kg Patient Weight 10/29/22 23:59 Weight 61.235 kg Laboratory Results - last 24 hr 10/29/22 19:05: Specimen Source Left radial, O2 % 30%, ABG pH 7.30 L, ABG pCO2 42.1, ABG pO2 92.8, ABG HCO3 20.0 L, ABG Total CO2 21.3 L, ABG O2 Saturation 97, ABG Base Excess -6.5 L, Rohan Test Unacceptable, Vent Rate 20, PEEP 5 I & O for Labs for Last 24 Hours: Intake & Output 10/26/22 10/27/22 10/28/22 10/29/22 23:59 23:59 23:59 23:59 Weight 61.235 kg
--- NOTE | 2022-10-29 21:59 | EXP.HP ---
History of Present Illness *Admission Date: 10/29/22 *Reason for visit:: Shortness of breath *History of present illness: Patient is a 56-year-old female who was evaluated in the emergency department twice today for shortness of breath. During the initial first evaluation the patient was found to be in respiratory failure secondary to pneumonia. Prior to admission the patient left AGAINST MEDICAL ADVICE. Shortly after arriving home the patient then called 911 and was brought back to the hospital where she was placed on BiPAP. Patient is reportedly a frequent patient to [facility]. History is unable to be obtained due to BiPAP mask and respiratory distress. She denies any pain when asked and gives me a thumbs up when I ask if she feels better than on arrival. [facility] 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 Abnormal ECG Acute exacerbation of chronic obstructive airways disease Acute exacerbation of chronic obstructive airways disease HUGO (acute kidney injury) Anemia Anxiety Aortic regurgitation Apnea Atypical chest pain Back Pain Bilateral lower extremity edema Bronchiectasis with acute lower respiratory infection Bronchiectasis without acute exacerbation CAD (coronary artery disease) Carotid artery disease without cerebral infarction Cervical radiculopathy Cervical spondylosis with radiculopathy Chest pain Chest pain Chronic headaches Congestive heart failure COPD (chronic obstructive pulmonary disease) COPD (chronic obstructive pulmonary disease) COPD (chronic obstructive pulmonary disease) COPD exacerbation COPD mixed type COPD with acute exacerbation Coronary artery disease Cough COVID-19 Depression Diastolic congestive heart failure Elevated erythrocyte sedimentation rate Exacerbation of bronchiectasis due to infection Falls Fatigue Fracture dislocation of joint Gram-negative pneumonia HCV (hepatitis C virus) History of intravenous drug use in remission Hoarseness Hyperlipidemia Insomnia Joint pain Joint pain of ankle and foot Left carpal tunnel syndrome Lipoma of abdominal wall LVH (left ventricular hypertrophy) Osteopenia Osteoporosis Osteoporosis without current pathological fracture Pain in metatarsus, bilateral Perimenopausal disorder Plantar fasciitis, bilateral Pneumonia Pneumonia Pneumonia Pneumonia Pneumonia due to COVID-19 virus Pneumonia due to other gram-negative bacteria Polysubstance abuse TOMY (renal artery stenosis) Recurrent bacterial pneumonia Renal insufficiency Respiratory failure Right arm pain Right leg pain Rotator cuff arthropathy of right shoulder Severe aortic regurgitation Severe sepsis with acute organ dysfunction Shortness of Breath Skin abscess Syncope and collapse Tobacco abuse Tobacco use Unresolved pneumonia Unstable angina Weakness Surgical History History of arthroscopic knee surgery History of breast biopsy History of cancer surgery History of cardiac cath History of carpal tunnel release History of section History of colonoscopy History of coronary artery stent placement History of hernia repair History of hysterectomy History of ureter stent Hx of cholecystectomy Family History Other Family history of COPD (chronic obstructive pulmonary disease) Family history of anemia Family history of hyperlipidemia Family history of hypertension Social History Smoking Status: Current every day smoker tobacco type: cigarettes packs per day: 1 second hand exposure: No alcohol intake: never substance use type: painkillers current occupational status: disabled Travel in the last 8 weeks: None household members: friend(s) housing: house marital status: current occupational exposures/hazards: No caffeine: Yes
--- NOTE | 2022-10-29 22:45 | PC.NURSE ---
telephone orders received from mansoor vega md, iv bolus of 250ml ns to be given and then normal saline to run at 100ml/hr for 12 hours, duonebs q4 hours, methlyprednisolone 0.5mg/kg q 12 hours x 5days, vancomycin per pharmacy dosing, repeated and verified.
[2022-10-30] VITALS (18 sets, daily range): BP systolic 123–164; BP diastolic 66–84; PULSE 64–110; RESP 17–26; TEMP 36.4–37.1; O2SAT 92–100; BMI 24.3
[2022-10-30 02:09] LABS: POC Glucose,Bedside 127 (70-110)
--- NOTE | 2022-10-30 05:26 | PC.NURSE ---
pt admitted this shift, pt has slept most of shift and remains on bipap, 02 sats have been 96-100%; telemetry reveals nsr, no edema noted, pt is arousable to name calling, but sleeps when not disturbed, VSS, lungs with expiratory wheezes, rhonchi and diminished, pt will open eyes to name calling, VSS, no other issues or concerns at this time.
[2022-10-30 07:19] LABS: POC Glucose,Bedside 144 (70-110)
--- NOTE | 2022-10-30 07:47 | EXP.ACUTE.PN ---
Subjective *Date: 10/30/22 *Time: 16:46 Medical Exam Vital signs and Labs for Last 24 Hours: Vital Signs Temp Pulse Pulse Resp BP BP Pulse Ox 10/30/22 06:07 64 10/30/22 06:07 64 10/30/22 06:05 10/30/22 04:00 65 10/30/22 00:00 85 10/30/22 04:00 97.7 F 65 20 161/75 H 100 10/30/22 02:18 70 10/30/22 02:18 71 10/30/22 02:18 10/30/22 00:00 98 10/29/22 20:00 98 10/30/22 00:00 97.6 F 84 18 164/84 H 98 10/29/22 21:11 98 10/29/22 21:11 10/29/22 21:00 98 F 115 H 32 H 167/97 H 10/29/22 19:08 10/29/22 18:49 98 F 93 H 32 H 128/106 H 96 FiO2 10/30/22 06:07 10/30/22 06:07 10/30/22 06:05 30 10/30/22 04:00 10/30/22 00:00 10/30/22 04:00 10/30/22 02:18 10/30/22 02:18 10/30/22 02:18 30 10/30/22 00:00 10/29/22 20:00 10/30/22 00:00 10/29/22 21:11 30 10/29/22 21:11 30 10/29/22 21:00 10/29/22 19:08 30 10/29/22 18:49 Intake and Output 10/29/22 10/29/22 10/30/22 15:59 23:59 07:59 Intake Total 1201 / 1201 Output Total 0 / 575 975 / 975 Balance 0 / -515 226 / 226 Intake: Intake, Oral Amount 60 / 60 Intake, Total IV Amount 1141 / 1141 0.9 % Sodium Chloride 1,000 ml 791 / 791 @ 100 mls/hr IV .Q10H [facility] Rx#: [id number] 0.9 % Sodium Chloride 250 ml @ 250 / 250 250 mls/hr IV .Q1H [facility] Rx#: [id number] Meropenem 1 gm In 0.9 % Sodium 100 / 100 Chloride 100 ml @ 100 mls/hr IV Q8H [facility] Rx#:[id number] Output: Output, Urine Amount 0 / 575 975 / 975 Other: Number of Unmeasured Voids 0 0 Weight 59.421 kg 60.101 kg Patient Weight 10/30/22 23:59 Weight 60.101 kg Laboratory Results - last 24 hr 10/29/22 19:05: Specimen Source Left radial, O2 % 30%, ABG pH 7.30 L, ABG pCO2 42.1, ABG pO2 92.8, ABG HCO3 20.0 L, ABG Total CO2 21.3 L, ABG O2 Saturation 97, ABG Base Excess -6.5 L, Rohan Test Unacceptable, Vent Rate 20, PEEP 5 10/30/22 02:01: POC Glucose 127 H 10/30/22 07:11: POC Glucose 144 H I & O for Labs for Last 24 Hours: Intake & Output 10/27/22 10/28/22 10/29/22 10/30/22 23:59 23:59 23:59 23:59 Intake Total 1201 / 1201 Output Total 0 575 975 / 975 Balance 0 / -515 226 / 226 Weight 59.421 kg 60.101 kg Assessment and Plan *Assessment and plan (1) Healthcare associated bacterial pneumonia: Status: Acute Category: Medical Code(s): J15.9 - Unspecified bacterial pneumonia (2) Sepsis: Status: Acute Category: Medical Code(s): A41.9 - Sepsis, unspecified organism (3) Acute and chronic respiratory failure: Status: Acute Category: Medical Code(s): J96.20 - Acute and chronic respiratory failure, unspecified whether with hypoxia or hypercapnia (4) Acute exacerbation of chronic obstructive pulmonary disease (COPD): Status: Acute Category: Medical Code(s): J44.1 - Chronic obstructive pulmonary disease with (acute) exacerbation (5) Diabetes mellitus: Status: Acute Category: Medical Code(s): E11.9 - Type 2 diabetes mellitus without complications (6) Hypertension: Status: Acute Category: Medical Code(s): I10 - Essential (primary) hypertension (7) Medical non-compliance: Status: Acute Category: Medical Code(s): Z91.199 - Patient's noncompliance with other medical treatment and regimen due to unspecified reason Plan Patient is a 56-year-old female admitted to the hospital for acute on chronic hypoxic respiratory failure secondary to pneumonia. Additionally meeting septic criteria with leukocytosis, tachycardia, tachypnea, increased oxygen requirement and source is pneumonia. Initially placed on BiPAP, did well overnight and transition to nasal cannula oxygen this morning. Pulmonology consulted, appreciate their assistance in care. Proble
--- NOTE | 2022-10-30 07:50 | EXP.PHA.CONS ---
Pharmacy Consult Date: 10/30/22 Time: 07:50 Referring provider: DR. PARISI Reason for Consult:: VANCOMYCIN Allergies Allergy/AdvReac Type Severity Reaction Status Date / Time atorvastatin AdvReac Intermediate myalgia Verified 10/23/22 11:25 aspirin [ASPIRIN] AdvReac Unknown Verified 10/23/22 11:25 codeine [CODEINE] AdvReac Unknown Verified 10/23/22 11:25 propoxyphene [PROPOXYPHENE] AdvReac Unknown Verified 10/23/22 11:25 tramadol [TRAMADOL] AdvReac Unknown Verified 10/23/22 11:25 Home Medications Medication Instructions Recorded Confirmed Type buprenorphine 8 mg-naloxone 2 mg 2 tab sublingual DAILY opioid use 03/22/21 10/23/22 History sublingual tablet disorder nicotine 21 mg/24 hr daily 21 mg transdermal DAILYP PRN 05/11/22 10/23/22 Rx transdermal patch Nicotine Cravings #30 patches rosuvastatin 5 mg tablet 5 mg PO DAILY hyperlipidemia 06/24/22 10/23/22 History ondansetron HCl 4 mg tablet 4 mg PO TIDP PRN Nausea 07/16/22 10/23/22 History risperidone 2 mg tablet 2 mg PO HS Restless leg 08/04/22 10/23/22 History ipratropium 0.5 mg-albuterol 3 mg 3 ml inhalation QID PRN shortness 08/17/22 10/23/22 Rx (2.5 mg base)/3 mL nebulization of breath #180 mL soln ferrous sulfate 325 mg (65 mg 325 mg PO DAILY Supplement 08/27/22 10/23/22 History iron) tablet folic acid 1 mg tablet 1 mg PO DAILY Supplement 08/27/22 10/23/22 History nicotine (polacrilex) 2 mg gum 2 mg buccal Q2H PRN nicotine 08/27/22 10/23/22 Rx cravings #396 ea bupropion HCl 75 mg tablet 75 mg PO BID Depression 09/26/22 10/23/22 History clopidogrel 75 mg tablet 75 mg PO DAILY coronary artery 09/26/22 10/23/22 History disease escitalopram oxalate 20 mg tablet 20 mg PO DAILY Anxiety 09/26/22 10/23/22 History famotidine 40 mg tablet 40 mg PO DAILY acid reflux 09/26/22 10/23/22 History fluticasone fur. 100 mcg-umeclid 1 inh inhalation DAILY COPD 09/26/22 10/23/22 History 62.5 mcg-vilant 25 mcg inhalat.powder (Trelegy Ellipta) furosemide 20 mg tablet 20 mg PO DAILY congestive heart 09/26/22 10/23/22 History failure megestrol 625 mg/5 mL (125 mg/mL) 625 mg PO DAILY Supplement 09/26/22 10/23/22 History oral suspension metoprolol succinate 25 mg 25 mg PO DAILY Hypertension 09/26/22 10/23/22 History tablet,extended release 24 hr aspirin 81 mg tablet,delayed 81 mg PO DAILY Coronary artery 10/15/22 10/23/22 Rx release disease #90 tabs calcium carbonate 600 mg-vitamin See Rx Instructions .Route 10/15/22 10/23/22 Rx D3 10 mcg (400 unit) tablet .COMPLEX #30 tabs omeprazole 40 mg capsule,delayed See Rx Instructions .Route 10/15/22 10/23/22 Rx release .COMPLEX #30 caps estradiol 1 mg tablet See Rx Instructions .Route 10/16/22 10/23/22 Rx .COMPLEX #30 tabs albuterol sulfate 90 mcg/actuation See Rx Instructions .Route 10/18/22 10/23/22 Rx aerosol inhaler (ProAir HFA) .COMPLEX #8.5 grams tizanidine 4 mg tablet 4 mg PO Q8H PRN muscle spasticity 10/19/22 10/23/22 Rx #90 tabs buspirone 5 mg tablet 5 mg PO TID #90 tabs 10/22/22 10/23/22 Rx clonazepam 0.5 mg tablet 0.5 mg PO TID Anxiety #90 tabs 10/23/22 10/23/22 Rx gabapentin 300 mg capsule 300 mg PO TID nerve pain #90 caps 10/23/22 10/23/22 Rx prednisone 20 mg tablet See Rx Instructions .Route 10/23/22 10/23/22 Rx .COMPLEX #15 tabs New Prescriptions to Start Prescriptions: Height: 1.57 m Weight: 60.101 kg Laboratory Results:: Laboratory Results - last 24 hr 10/29/22 19:05: Specimen Source Left radial, O2 % 30%, ABG pH 7.30 L, ABG pCO2 42.1, ABG pO2 92.8, ABG HCO3 20.0 L, ABG Total CO2 21.3 L, ABG O2 Saturation 97, ABG Base Excess -6.5 L, Rohan Test Unacceptable, Vent Rate 20, PEEP 5 10/30/22 02:01: POC Glucose 127 H 10/30/22 07:11: POC Glucose 144 H 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: 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 (Updated 10/29/22 @ 22:18 by Agustin Parisi MD) Abnormal ECG Acute exacerbation of chronic obstructive airways disease Acute exacerbation of chronic obstructive airways disease HUGO
--- NOTE | 2022-10-30 08:15 | DIET.NUTRFU ---
Chart review, [employer] recommended a MSOFT chopped with no straws in the past, updated diet to MSOFT chopped, no straws, cardiac and diabetic
[2022-10-30 08:22] LABS: Alanine Aminotransferase 10 U/L (12-78); Albumin Level 2.9 g/dl (3.5-5.0); Alkaline Phosphatase 61 U/L (38-126); Anion Gap 19.2 mEq/L (5-15); Aspartate Amino Transferase 34 U/L (14-36); Bilirubin,Total 0.3 mg/dl (0.2-1.3); Blood Urea Nitrogen 26 mg/dl (7-17); Calcium 8.4 mg/dl (8.4-10.2); Carbon Dioxide 20 mmol/L (22.0-30.0); Chloride 109 mmol/L (98-107); Chol/HDL Ratio 1.9 (1-3.5); Cholesterol 124 mg/dl (140-200); Creatinine Clearance Estimated 55 mL/min (50-200); Estimated Glomerular Filt Rate 52 ml/min (>60); GFR (African American) 62 ML/MIN (>60); Globulin 2.9 g/dL (1.3-3.2); Glucose 103 mg/dl (74-100); HDL Cholesterol 67 mg/dl (40-60); Magnesium 2.2 mg/dl (1.6-2.3); Phosphorous 4.7 mg/dl (2.5-4.5); Potassium 5.2 mmoL/L (3.5-5.1); Sodium 143 mmol/L (136-145); Total Protein,Serum 5.8 g/dl (6.3-8.2); Triglycerides 61 mg/dl (30-150); VLDL Cholesterol 12 mg/dL (0-40)
[2022-10-30 08:32] LABS: Direct LDL Cholesterol 31.83 mg/dL (100-129)
[2022-10-30 08:45] LABS: Basophils # 0.1 K/mm3 (0-0.2); Basophils % 0.7 % (0.1-2.0); Eosinophils % 0.2 % (0.1-12.0); Hematocrit 34.8 % (37.0-47.0); Lymphocytes # 1.1 K/mm3 (0.7-4.5); Lymphocytes % 7.6 % (10-50); Mean Corpuscular HGB Conc 29.1 g/dL (31.8-35.4); Mean Corpuscular Hemoglobin 26.5 pg (27.0-31.2); Mean Corpuscular Volume 91.2 fl (81-99); Mean Platelet Volume 8.2 fl (7.4-10.4); Monocytes # 0.4 K/mm3 (0.1-1.0); Monocytes % 3.1 % (1.7-9.3); Neutrophils # 12.1 K/mm3 (1.8-7.8); Neutrophils % 88.4 % (37.0-80.0); Platelet Count 311 K/mm3 (142-424); Red Blood Count 3.82 M/mm3 (4.20-5.40); Red Cell Distribution Width 20.2 % (11.5-17.5); White Blood Count 13.7 K/mm3 (4.8-10.8)
[2022-10-30 08:48] LABS: Hemoglobin 10.1 g/dL (12.2-16.2); MANUAL DIFFERENTIAL MANUAL DIFFERENTIAL (MANUAL DIFF)
[2022-10-30 10:01] LABS: Burr Cells 1+; Hypochromasia 2+; Lymphocytes % 9 % (10-50); Monocytes % 2 % (2-9); Neutrophils % 89 % (42-76); Platelet Estimate Normal; Total Cells Counted 100
[2022-10-30 10:02] LABS: Anisocytosis 2+; Rouleaux 2+
--- NOTE | 2022-10-30 10:02 | EXP.PULM.CON ---
History of Present Illness History of present illness: Ms. Rush is a 56-year-old female COPD bronchiectasis recurrent pneumonias multiple hospital admissions left AMA presented to the hospital again worsening respiratory distress along with worsening cough and productive phlegm admitted to the hospital and pulmonary was called for further evaluation. [facility] 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 (Updated 10/30/22 @ 12:26 by Kraig Orourke MD) Abnormal ECG Acute exacerbation of chronic obstructive airways disease Acute exacerbation of chronic obstructive airways disease HUGO (acute kidney injury) Anemia Anxiety Aortic regurgitation Apnea Atypical chest pain Back Pain Bilateral lower extremity edema Bronchiectasis with (acute) exacerbation Bronchiectasis with acute lower respiratory infection Bronchiectasis without acute exacerbation CAD (coronary artery disease) Carotid artery disease without cerebral infarction Cervical radiculopathy Cervical spondylosis with radiculopathy Chest pain Chest pain Chronic headaches Congestive heart failure COPD (chronic obstructive pulmonary disease) COPD (chronic obstructive pulmonary disease) COPD (chronic obstructive pulmonary disease) COPD exacerbation COPD mixed type COPD with acute exacerbation Coronary artery disease Cough COVID-19 Depression Diastolic congestive heart failure Elevated erythrocyte sedimentation rate Exacerbation of bronchiectasis due to infection Falls Fatigue Fracture dislocation of joint Gram-negative pneumonia HCV (hepatitis C virus) History of intravenous drug use in remission Hoarseness Hyperlipidemia Insomnia Joint pain Joint pain of ankle and foot Left carpal tunnel syndrome Lipoma of abdominal wall LVH (left ventricular hypertrophy) Osteopenia Osteoporosis Osteoporosis without current pathological fracture Pain in metatarsus, bilateral Perimenopausal disorder Plantar fasciitis, bilateral Pneumonia Pneumonia Pneumonia Pneumonia Pneumonia due to COVID-19 virus Pneumonia due to other gram-negative bacteria Polysubstance abuse TOMY (renal artery stenosis) Recurrent bacterial pneumonia Renal insufficiency Respiratory failure Right arm pain Right leg pain Rotator cuff arthropathy of right shoulder Severe aortic regurgitation Severe sepsis with acute organ dysfunction Shortness of Breath Skin abscess Syncope and collapse Tobacco abuse Tobacco use Unresolved pneumonia Unstable angina Weakness Surgical History History of arthroscopic knee surgery History of breast biopsy History of cancer surgery History of cardiac cath History of carpal tunnel release History of section History of colonoscopy History of coronary artery stent placement History of hernia repair History of hysterectomy History of ureter stent Hx of cholecystectomy Family History Other Family history of COPD (chronic obstructive pulmonary disease) Family history of anemia Family history of hyperlipidemia Family history of hypertension Social History (Updated 10/30/22 @ 00:47 by Bianca Rosas RN) Smoking Status: Current every day smoker tobacco type: cigarettes packs per day: 1 second hand exposure: No alcohol intake: never substance use type: painkillers current occupational status: disabled Travel in the last 8 weeks: None household members: friend(s) housing: house marital status: current occupational exposures/hazards: No caffeine: Yes Review of Systems Constitutional Constitutional: Reports fatigue and Reports weakness Eyes Eyes: Denies eye discharge, Denies dry eyes, Denies irritation and Denies itchy eyes ENT Ears, Nose, Mouth, and Throat: Denies epistaxis, Denies facial pain, Denies lip swelling and Denies throat swelling *Cardiovascular Cardiovascular: Reports dyspnea and Reports dyspnea on exertion *Respiratory
[2022-10-30 10:03] LABS: Poikilocytosis 1+
--- NOTE | 2022-10-30 10:39 | HMH.OTEV ---
OT Inpatient Evaluation Rehab OT IP Evaluation Start: 10/30/22 09:29 Freq: ONCE Status: Complete Protocol: Document 10/30/22 10:30 [facility] (Rec: 10/30/22 10:39 [facility] [id number]) Rehab OT IP Assessment Subjective History Pt was oriented x 3 on arrival . Pt agreeable to engage in therapy evaluation. Pt was admitted via ED on 10/29/22 due to shortness of breath. Pt reports she lived in an apartment on the second floor (16 steps to get to apartment) with a roommate. Pt claims she was independent with all ADLs such a dressing, bathing, and feeding. Pt claims her roommate and her complete IADLs together when she is physically able. However, she is dependent upon her roommate for running errands such as grocery shopping. Pt does use a cane during ambulation. Pt has a past medical history of: Abnormal ECG Acute exacerbation of chronic obstructive airways disease Acute exacerbation of chronic obstructive airways disease HUGO (acute kidney injury) Anemia Anxiety Aortic regurgitation Apnea Atypical chest pain Back Pain Bilateral lower extremity edema Bronchiectasis with acute lower respiratory infection Bronchiectasis without acute exacerbation CAD (coronary artery disease) Carotid artery disease without cerebral infarction Cervical radiculopathy Cervical spondylosis with radiculopathy Chest pain Chest pain Chronic headaches
--- NOTE | 2022-10-30 10:53 | HMH.PHAINT1 ---
Pharmacy Intervention Comments: Medication reconciliation completed via external fill history and patient interview. -Joanne Pickett, PharmD Candidate 2022
--- NOTE | 2022-10-30 11:45 | HMH.PTEV ---
Physical Therapy Evaluation Rehab PT IP Evaluation Start: 10/30/22 09:29 Freq: ONCE Status: Active Protocol: Document 10/30/22 10:05 [facility] (Rec: 10/30/22 11:45 [facility] [id number]) Subjective/History History History 56 yowf adm to [facility] with PNA and resp failure. She reports she lives in a 2nd story apt with 16 steps to enter. She uses oxygen via NC at all times at baseline and is generally independent with all mobility. She reports she lives with a roommate who gets me whatever I need. Subjective Subjective Pt reports she is hugry this am and agrees to get OOB. Rehab PT IP Eval Objective Appearance Patient Behavior Appropriate Patient Orientation Person,Place,Time Difficulty following instructions none Speech Pattern Clear Ambulation Patient Able to Ambulate Yes Ambulation Observation IP General Gait Pattern Observation Shuffling Step Ambulation Distance (feet) 5 Ambulation Assistive Device None Ambulation Ability Contact Guard/Hand Hold Balance Ability to Arise Able, uses arms to help Sitting Balance Steady, safe Standing Balance Steady, wide stance Dynamic Sitting Balance Ability Good Dynamic Standing Balance Ability Fair Transfers Bed Transfer Ability Contact Guard/Hand Hold Chair Transfer Ability Contact Guard/Hand Hold Sit to Stand Bed Transfer Ability Contact Guard/Hand Hold Sit to Stand Chair Transfer Ability Contact Guard/Hand Hold Rehab PT IP prob,goals,plan Problems Date of Evaluation: 10/30/22 PT IP Problems Bed Mobility,Transfers,Gait Rehab Potential Rehab Potential Good Plan PT Intervention Plan Bed Mobility,Transfers,Gait, Therapeutic Exercise PT Plan Frequency BID Duration LOS Discharge Goals Bed Transfer Ability Supervision/Stand by Sit to Stand Chair Transfer Ability Supervision/Stand by Ambulation Assistive Device None Ambulation Distance (feet) 20 Discharge Plan PT Discharge Plan Pt is currently most appropriate for rehab placement once medically stable. However, she could return to prior living situation if mobility improves and she has assist available
--- NOTE | 2022-10-30 15:36 | PC.NURSE ---
Addendum entered by Dorcas Mathur RN 10/30/22 19:25: LASIX 40 MG ORDERED. CATHETER LEFT IN FOR NOW TO MONITOR PT'S I&O'S. AWARE. Original Note: PT IS SITTING UP IN THE CHAIR. ALERT AND ORIENTED X3. PT HAS BEEN TEXTING ON HER PHONE OFF AND ON T/O THE SHIFT. PT HAS HAD PERIODS OF BEING VERY DROWSY. ACCORDING TO PT LONG SHE IS SITTING AROUND NOT DOING ANYTHING ALL SHE IS GOING TO DO IN SLEEP. PT STATED THIS MORNING THAT SHE WAS GOING TO SIGN OUT AMA IF SHE DID NOT GET HER MEDICATIONS REORDERED B/C SHE WAS NOT GOING TO SIT AROUND IN PAIN.(PT SPECIFICALLY STATED SHE WANTED HER SUBOXONE, GABAPENTIN AND KLONOPIN). NOTIFIED HOSPITALIST TO GET MEDS REORDERED. PT CONTINUES TO BE DROWSY BUT WILL AWAKEN TO ANSWER QUESTIONS AND FOLLOW COMMANDS. LUNG SOUND HAVE SCATTERED WHEEZES/RHONCHI. O2 SATURATION 92-96% ON 2 L NC. EATING AND DRINKING WELL. WILL CONTINUE TO MONITOR.
[2022-10-30 18:17] LABS: POC Glucose,Bedside 170 (70-110)
[2022-10-31] VITALS (15 sets, daily range): BP systolic 141–153; BP diastolic 81–95; PULSE 65–120; RESP 16–24; TEMP 36.6–37.1; O2SAT 92–98; BMI 22.9; BMI 22.7
--- NOTE | 2022-10-31 04:57 | PC.NURSE ---
pt is A&OX4. drowsy when awake. she remains on 2L NC maintaining O2 sat >90%. Rhonchi and course crackles noted to bilat lungs. Hospitalist Uriel VAZ notified of worsening crackles this morning, IV lasix ordered and given per jan.
[2022-10-31 07:05] LABS: POC Glucose,Bedside 149 (70-110)
--- NOTE | 2022-10-31 07:15 | EXP.ACUTE.PN ---
Subjective *Date: 10/31/22 *Time: 12:42 Interval history: Stable oxygen requirement overnight. Afebrile. States she feels better this morning. On initial appearance appears somewhat slumped in her chair to the left however arouses when I walk in the room and answers questions appropriately. In bedside chair working on something on her tray in front of her. Patient does express frustration with not having her Suboxone this morning. Expressed my concerns with her somnolence. She states she takes her Suboxone 1 twice a day as opposed to to once a day at home. She has approval to take it that way from her Suboxone clinic/provider. She is adamant that she get her Suboxone per her home regimen or she would like to leave. Cough on exam is wet. States improvement in shortness of breath. Denies chest pain, confusion, nausea, vomiting, diarrhea Medical Exam Vital signs and Labs for Last 24 Hours: Vital Signs Temp Pulse Pulse Resp BP Pulse Ox FiO2 10/31/22 06:05 71 10/31/22 06:05 82 10/31/22 06:05 95 10/31/22 05:00 80 10/31/22 04:00 98.4 F 79 18 153/93 H 95 10/30/22 20:00 110 H 10/31/22 02:15 95 H 10/31/22 02:05 91 H 10/31/22 00:00 80 10/31/22 00:00 98.3 F 85 16 145/93 H 98 10/30/22 21:47 104 H 10/30/22 21:47 104 H 10/30/22 20:00 98.4 F 109 H 26 H 144/82 H 93 L 10/30/22 19:05 28 10/30/22 18:15 101 H 10/30/22 18:03 95 H 10/30/22 16:00 100 H 10/30/22 15:13 98.7 F 99 H 20 141/72 H 92 L 10/30/22 14:10 97 H 10/30/22 14:10 100 H 10/30/22 12:00 97 H 10/30/22 11:50 98.3 F 97 H 17 123/66 94 L 10/30/22 08:00 65 10/30/22 08:00 65 10/30/22 10:06 99 H 10/30/22 09:45 91 H 22 10/30/22 09:45 91 H 10/30/22 07:42 97.5 F L 66 20 163/72 H 99 Intake and Output 10/30/22 10/30/22 10/31/22 15:59 23:59 07:59 Intake Total 120 / 1561 240 / 1561 Output Total 500 / 3400 925 / 3400 2400 / 2400 Balance -380 / -1839 -685 / -1839 -2400 / -2400 Intake: Intake, Oral Amount 120 / 420 240 / 420 Output: Output, Urine Amount 0 / 2900 925 / 2900 2400 / 2400 Output, Urine Amount (Catheter) 500 / 500 Gale 500 / 500 Other: Number of Unmeasured Voids 0 0 0 Weight 56.501 kg Patient Weight 10/31/22 23:59 Weight 56.501 kg Laboratory Results - last 24 hr 10/30/22 07:11: POC Glucose 144 H 10/30/22 07:45: WBC 13.7 H, RBC 3.82 L, Hgb 10.1 L D, Hct 34.8 L, MCV 91.2, MCH 26.5 L, MCHC 29.1 L, RDW 20.2 H, Plt Count 311, MPV 8.2, Neut % (Auto) 88.4 H, Lymph % (Auto) 7.6 L, [place] % (Auto) 3.1, Eos % (Auto) 0.2, Baso % (Auto) 0.7, Neut # (Auto) 12.1 H, Lymph # (Auto) 1.1, [place] # (Auto) 0.4, Eos # (Auto) 0.0, Baso # (Auto) 0.1, Total Counted 100, Neutrophils % (Manual) 89 H, Lymphocytes % (Manual) 9 L, Monocytes % (Manual) 2, Platelet Estimate Normal, RBC Morphology Not Reportable, Hypochromasia 2+, Poikilocytosis 1+, Anisocytosis 2+, [place] Cells 1+, Rouleaux 2+ 10/30/22 07:45: Sodium 143, Potassium 5.2 H D, Chloride 109 H, Carbon Dioxide 20 L, Anion Gap 19.2 H, BUN 26 H, Creatinine 1.10 H D, Estimated Creat Clear 55, Estimated GFR 52 L, Est GFR ( Amer) 62 D, Glucose 103 H D, Calcium 8.4, Phosphorus 4.7 H, Magnesium 2.2, Total Bilirubin 0.3, AST 34 D, ALT 10 L D, Alkaline Phosphatase 61, Total Protein 5.8 L, Albumin 2.9 L D, Globulin 2.9, Albumin/Globulin Ratio 1.0 L, Triglycerides 61, Cholesterol 124 L, LDL Cholesterol Direct 31.83 L, VLDL Cholesterol 12, HDL Cholesterol 67 H, Cholesterol/HDL Ratio 1.9 10/30/22 18:10: POC Glucose 170 H 10/31/22 06:57: POC Glucose 149 H I & O for Labs for Last 24 Hours: Intake & Output 10/28/22 10/29/22 10/30/22 10/31/22 23:59 23:59 23:59 23:59 Intake Total 1561 / 1561 Output Total 0 / 575 2400 / 3400 2400 / 2400 Balance 0 / -515 -839 / -1839 -2400 / -2400 Weight 59.421 k
[2022-10-31 08:02] LABS: Basophils # 0.1 K/mm3 (0-0.2); Basophils % 0.9 % (0.1-2.0); Eosinophils # 0.2 K/mm3 (0.0-0.4); Hematocrit 38.2 % (37.0-47.0); Hemoglobin 11.4 g/dL (12.2-16.2); Lymphocytes # 1.4 K/mm3 (0.7-4.5); Lymphocytes % 8.6 % (10-50); Mean Corpuscular HGB Conc 29.9 g/dL (31.8-35.4); Mean Corpuscular Hemoglobin 26.8 pg (27.0-31.2); Mean Corpuscular Volume 89.5 fl (81-99); Mean Platelet Volume 8.9 fl (7.4-10.4); Monocytes # 0.8 K/mm3 (0.1-1.0); Monocytes % 4.8 % (1.7-9.3); Neutrophils # 13.3 K/mm3 (1.8-7.8); Neutrophils % 84.6 % (37.0-80.0); Platelet Count 362 K/mm3 (142-424); Red Blood Count 4.26 M/mm3 (4.20-5.40); Red Cell Distribution Width 20.5 % (11.5-17.5); White Blood Count 15.7 K/mm3 (4.8-10.8)
[2022-10-31 08:03] LABS: MANUAL DIFFERENTIAL MANUAL DIFFERENTIAL (MANUAL DIFF)
[2022-10-31 08:19] LABS: Alanine Aminotransferase 20 U/L (12-78); Albumin Level 3.8 g/dl (3.5-5.0); Albumin/Globulin Ratio 1.2 (1.1-1.8); Alkaline Phosphatase 70 U/L (38-126); Anion Gap 13.2 mEq/L (5-15); Aspartate Amino Transferase 25 U/L (14-36); Bilirubin,Total 0.3 mg/dl (0.2-1.3); Blood Urea Nitrogen 34 mg/dl (7-17); Calcium 9.2 mg/dl (8.4-10.2); Carbon Dioxide 24 mmol/L (22.0-30.0); Chloride 109 mmol/L (98-107); Creatinine Clearance Estimated 40 mL/min (50-200); Estimated Glomerular Filt Rate 39 ml/min (>60); GFR (African American) 47 ML/MIN (>60); Globulin 3.3 g/dL (1.3-3.2); Glucose 144 mg/dl (74-100); Magnesium 2.1 mg/dl (1.6-2.3); Potassium 4.2 mmoL/L (3.5-5.1); Sodium 142 mmol/L (136-145); Total Protein,Serum 7.1 g/dl (6.3-8.2)
[2022-10-31 08:20] LABS: Lymphocytes % 7 % (10-50); Monocytes % 3 % (2-9); Neutrophils % 90 % (42-76); Platelet Estimate Normal; RBC Morphology Normal; Total Cells Counted 100
--- NOTE | 2022-10-31 09:47 | EXP.PULM.PN ---
Subjective *Date: 10/31/22 *Time: 11:31 Interval history: No acute respiratory vents overnight. Continued to have cough and productive phlegm. Pulmonology Exam Inpatient Vital signs and Labs for Last 24 Hours: Temp Pulse Resp BP Pulse Ox FiO2 98.8 F 112 H 20 144/88 H 95 28 10/31/22 08:00 10/31/22 08:00 10/31/22 08:00 10/31/22 08:00 10/31/22 08:00 10/30/22 19:05 Laboratory Results - last 24 hr 10/30/22 07:45: Total Counted 100, Neutrophils % (Manual) 89 H, Lymphocytes % (Manual) 9 L, Monocytes % (Manual) 2, Platelet Estimate Normal, RBC Morphology Not Reportable, Hypochromasia 2+, Poikilocytosis 1+, Anisocytosis 2+, [place] Cells 1+, Rouleaux 2+ 10/30/22 18:10: POC Glucose 170 H 10/31/22 06:57: POC Glucose 149 H 10/31/22 07:53: WBC 15.7 H, RBC 4.26, Hgb 11.4 L, Hct 38.2, MCV 89.5, MCH 26.8 L, MCHC 29.9 L, RDW 20.5 H, Plt Count 362, MPV 8.9, Neut % (Auto) 84.6 H, Lymph % (Auto) 8.6 L, [place] % (Auto) 4.8, Eos % (Auto) 1.0, Baso % (Auto) 0.9, Neut # (Auto) 13.3 H, Lymph # (Auto) 1.4, [place] # (Auto) 0.8, Eos # (Auto) 0.2, Baso # (Auto) 0.1, Total Counted 100, Neutrophils % (Manual) 90 H, Lymphocytes % (Manual) 7 L, Monocytes % (Manual) 3, Platelet Estimate Normal, RBC Morphology Normal 10/31/22 07:53: Sodium 142, Potassium 4.2, Chloride 109 H, Carbon Dioxide 24, Anion Gap 13.2, BUN 34 H D, Creatinine 1.40 H D, Estimated Creat Clear 40, Estimated GFR 39 L, Est GFR ( Amer) 47 L D, Glucose 144 H, Calcium 9.2, Magnesium 2.1, Total Bilirubin 0.3, AST 25 D, ALT 20 D, Alkaline Phosphatase 70, Total Protein 7.1, Albumin 3.8 D, Globulin 3.3 H, Albumin/Globulin Ratio 1.2 I & O for Labs for Last 24 Hours: Intake & Output 10/28/22 10/29/22 10/30/22 10/31/22 23:59 23:59 23:59 23:59 Intake Total 1561 / 1561 Output Total 0 / 575 2400 / 3400 2400 / 2400 Balance 0 / -515 -839 / -1839 -2400 / -2400 Weight 131 lb 0.014 oz 132 lb 8 oz 124 lb 9 oz Microbiology Reports for the Last 24 Hours: Microbiology 10/30/22 10:05 Sputum - Expectorated Sputum Gram Stain - Final 10/30/22 10:05 Sputum - Expectorated Sputum Sputum Culture - Preliminary Assessment and Plan *Assessment and plan (1) Acute and chronic respiratory failure: Status: Acute Category: Medical Code(s): J96.20 - Acute and chronic respiratory failure, unspecified whether with hypoxia or hypercapnia (2) Healthcare associated bacterial pneumonia: Status: Acute Category: Medical Code(s): J15.9 - Unspecified bacterial pneumonia (3) Bronchiectasis with (acute) exacerbation: Status: Acute Category: Medical Code(s): J47.1 - Bronchiectasis with (acute) exacerbation Plan 56-year-old history of COPD bronchiectasis recurrent pneumonia. Most recent hospital admission at [facility] was September 2020 during which she is growing Klebsiella MDR and the plan was to discharge the patient on ertapenem to complete a 14-day course however patient left AMA. Patient also admits hospital admission at [facility] in [place] early October during which she stayed in the hospital for 7 days. AFB and RODO staining's negative She presented to the ER on this admission with worsening respiratory distress was admitted for further management. By leukosis on admission at 13.7 neutrophilic predominant. ABG on admission did not show any evidence of respiratory acidosis. Concern for metabolic acidosis. Slight worsening renal function, elevated BUN/creatinine and hyperkalemia. Lactate WNL @ 1.4 Chest x-ray admission bilateral lower lobe airspace disease. Patient was initiated on vancomycin and meropenem on this admission along with DuoNebs every 4 scheduled and methylprednisolone 30 mg IV twice daily scheduled. Interval update: Stable oxygen recommends at 2 to 3 L. Vancomycin was discontinued. Continue to receive meropenem. Leukocytosis stable, neutrophilic predominant. Sputum with suboptimal sample, repeat Plan: -Continue oxygen supplem
--- NOTE | 2022-10-31 13:30 | DIET.NUTRFU ---
Saw patient during meal rounds with good po intake, ate 100% of chicken and couple bites of soup. She was ordered a diabetic diet but has no hx of DM and she loves her Dr Younger. Will clarify diet and discontinue the diabetic restriction.
--- NOTE | 2022-10-31 16:46 | HMH.SLDYSPHA ---
Speech & Language Evaluation Speech/Language Dysphagia Evaluation Start: 10/31/22 16:12 Freq: ONCE Status: Active Protocol: Document 10/31/22 16:15 KALI (Rec: 10/31/22 16:42 KALI [id number]) Dysphagia Assess/Goals/Plan Assessment Date of Evaluation: 10/31/22 Evaluation Type Initial Certification Assessment/Problems Pneumonia and possible dysphagia Does Patient Qualify for Service Yes Qualify/Failure Comment Based on the results of the clinical swallow evalaution, Pt requires further assessment of swallow function to determine LRD. Recommendations PHYSICIAN CERTIFICATION: The specified therapy services are required, authorized, and reviewed every 30 days. Comment Given results of CSE, pt would be safest NPO pending MBSS tomorrow. CONDUIT BENDER discussed risk of potential aspiration with pt, especially given admit w/ pna. Pt refused NPO recommendation and wants to remain on current diet until test can be completed tomorrow . CONDUIT BENDER notified case management , who said they would discuss with MD. CONDUIT BENDER recommends NPO given overt s/sxs of aspiration. Diet changes per MD discretion. Plan Pt/Guardian verbally ack understanding Yes of dx/prognosis/goals Pt/Guardian verbally ack understanding Yes of/consent to tx prog G -code Required No Education Instructions provided CSE results and diet recommendations discussed with pt, care management, and nursing who expressed understanding. Pt/Caregiver able to recall information Able to recall/restate Reinforcement needed No Speech & Language HPI History Present Illness Description of Patient Problem Ms. Rush is a 56 y.o. woman who initially presented to [facility] ED for respiratory failure and left AMA. She returned to ED when her condition worsened and was placed on the bipap. Pt is presenting with acute on chronic respiratory failure 2 ' pneumonia. She is currently
--- NOTE | 2022-10-31 18:55 | PC.NURSE ---
Pt is alert and oriented x4. She remains on 2L NC and has tolerated well. She's been up to the chair the whole shift. She's been very lethargic but will awaken with physical stimuli. Gale removed this afternoon, 1800 mls of clear, yellow urine out. She's been NSR/St on telemetry. She is a standby assist. She is currently sitting in her chair with her eyes closed.
--- NOTE | 2022-10-31 22:18 | PC.NURSE ---
pt pulled out 22G IV in left wrist. 18G in right IJ still in place and patent.
[2022-11-01] VITALS (17 sets, daily range): BP systolic 130–146; BP diastolic 75–92; PULSE 64–118; RESP 12–21; TEMP 36.6–37.1; O2SAT 90–98; BMI 22.1
--- NOTE | 2022-11-01 03:04 | PC.NURSE ---
pt was assisted to BR to attempt to void, pt unable. bladder distended, and has not voided this shift. Uriel VAZ notified. Orders received to insert crawford catheter.
[2022-11-01 07:22] LABS: Basophils # 0.1 K/mm3 (0-0.2); Basophils % 0.6 % (0.1-2.0); Eosinophils # 0.2 K/mm3 (0.0-0.4); Eosinophils % 1.1 % (0.1-12.0); Hematocrit 36.2 % (37.0-47.0); Hemoglobin 10.7 g/dL (12.2-16.2); Lymphocytes # 1.6 K/mm3 (0.7-4.5); Lymphocytes % 10.3 % (10-50); Mean Corpuscular HGB Conc 29.4 g/dL (31.8-35.4); Mean Corpuscular Hemoglobin 26.5 pg (27.0-31.2); Mean Corpuscular Volume 90.1 fl (81-99); Mean Platelet Volume 8.7 fl (7.4-10.4); Monocytes # 0.8 K/mm3 (0.1-1.0); Monocytes % 4.8 % (1.7-9.3); Neutrophils # 12.9 K/mm3 (1.8-7.8); Neutrophils % 83.2 % (37.0-80.0); Platelet Count 316 K/mm3 (142-424); Red Blood Count 4.02 M/mm3 (4.20-5.40); Red Cell Distribution Width 20.5 % (11.5-17.5); White Blood Count 15.5 K/mm3 (4.8-10.8)
[2022-11-01 07:24] LABS: MANUAL DIFFERENTIAL MANUAL DIFFERENTIAL (MANUAL DIFF)
[2022-11-01 07:27] LABS: Chloride 108 mmol/L (98-107); Sodium 141 mmol/L (136-145)
[2022-11-01 07:28] LABS: Potassium 4.7 mmoL/L (3.5-5.1)
[2022-11-01 07:31] LABS: Anion Gap 8.7 mEq/L (5-15); Blood Urea Nitrogen 38 mg/dl (7-17); Calcium 9.4 mg/dl (8.4-10.2); Carbon Dioxide 29 mmol/L (22.0-30.0); Creatinine Clearance Estimated 46 mL/min (50-200); Estimated Glomerular Filt Rate 47 ml/min (>60); GFR (African American) 56 ML/MIN (>60); Glucose 94 mg/dl (74-100)
[2022-11-01 08:44] LABS: Lymphocytes % 13 % (10-50); Monocytes % 13 % (2-9); Neutrophils % 74 % (42-76); Total Cells Counted 100
[2022-11-01 08:45] LABS: Ovalocytes 1+; Platelet Estimate Normal
[2022-11-01 08:46] LABS: Anisocytosis 1+; Poikilocytosis 1+
--- NOTE | 2022-11-01 09:00 | FL_ITS ---
FINAL REPORT CLINICAL HISTORY: 3.06 fluoro time pneumonia FINDINGS: MODIFIED BARIUM SWALLOW History: Dysphagia. FINDINGS: Fluoroscopy was provided for the speech pathologist to evaluate the swallowing mechanism. The patient was given several different consistencies of barium while the swallow was visualized fluoroscopically. The report of the speech pathologist should be consulted prior to making dietary decisions. FLUOROSCOPY TIME: 3 minutes 6 seconds. 15 cine runs were obtained. IMPRESSION: Modified barium swallow under fluoroscopic guidance. Please see the report of the speech pathologist for more detail. Films reviewed , interpreted and dictated by Dr. Aguero. Transcribed by Ky Trejo PA-C. Reviewed, Interpreted and Dictated by Nik Aguero MD Transcribed by SILVA Mccormick Authenticated and [facility]
[2022-11-01 09:27] LABS: POC Glucose,Bedside 96 (70-110)
--- NOTE | 2022-11-01 09:54 | HMH.SLMBS2 ---
Speech & Language Evaluation Speech/Language Mod Barium Swallow Start: 10/31/22 15:51 Freq: ONCE Status: Complete Protocol: Document 11/01/22 09:38 SUSHIL (Rec: 11/01/22 09:54 SUSHIL [id number]) General Information General Current Food Consistancy Mechanical Soft,Thin Liquids Dentition Upper Only Oxygen Status BiPAP Patient Orientation Person,Place,Time,Situation Ability to Follow Directions Good Communication Ability No Impairment MBS Recommendations Diet Dietary Recommendations Mechanical Soft,Thin Liquids Treatment/Strategies Strategy/Precaution Recommend Sitting Upright (90 deg), Double Swallow,Small Bites and Sips,Alternate Liquids/Solids Mod Barium Swallow Impressions Summary and Impressions Oral Phase Impression Mild Impairment Oral Phase Summary When presented with both regular and mech. soft consistencies, pt demonstrated longer latency time to initiate the swallow 2' difficulty masticating boluses administered. Pt is noted to be weak and only has upper dentures, which are self reported to slow her down when eating. 2' to being weak pt also demonstrated anterior loss of thin liquid with both straw and open cup. She was also noted to withhold liquid when presented with two consecutive sips of thin liquid via straw. Pharyngeal Phase Impression Moderate Impairment Pharyngeal Phase Summary Across all solid consistencies e.g. mechanical soft and regular, as well as puree consistency, pt required cue to complete a double swallow to clear the bolus as it would not become fully cleared on initial swallow. Pt also demonstrated delayed swallow as bolus was transfered to BOT and required minimal to moderate cues to swallow. Speech/Language MBS Assessment/Goals/Plan Assessment Date of Evaluation: 11/01/22 Evaluation Type Initial Certification Assessment/Problems MBSS completed per MD order
--- NOTE | 2022-11-01 09:58 | EXP.PULM.PN ---
Subjective *Date: 11/01/22 *Time: 11:55 Interval history: No acute respiratory vents overnight. Continued to complain of cough and productive phlegm improved from yesterday. Pulmonology Exam Inpatient Vital signs and Labs for Last 24 Hours: Temp Pulse Resp BP Pulse Ox FiO2 97.8 F 74 17 140/90 94 L 28 11/01/22 07:47 11/01/22 07:47 11/01/22 07:47 11/01/22 07:47 11/01/22 07:47 10/30/22 19:05 Laboratory Results - last 24 hr 11/01/22 06:55: POC Glucose 96 11/01/22 06:57: WBC 15.5 H, RBC 4.02 L, Hgb 10.7 L, Hct 36.2 L, MCV 90.1, MCH 26.5 L, MCHC 29.4 L, RDW 20.5 H, Plt Count 316, MPV 8.7, Neut % (Auto) 83.2 H, Lymph % (Auto) 10.3, [place] % (Auto) 4.8, Eos % (Auto) 1.1, Baso % (Auto) 0.6, Neut # (Auto) 12.9 H, Lymph # (Auto) 1.6, [place] # (Auto) 0.8, Eos # (Auto) 0.2, Baso # (Auto) 0.1, Total Counted 100, Neutrophils % (Manual) 74, Lymphocytes % (Manual) 13, Monocytes % (Manual) 13 H, Platelet Estimate Normal, Poikilocytosis 1+, Anisocytosis 1+, Ovalocytes 1+ 11/01/22 06:57: Sodium 141, Potassium 4.7, Chloride 108 H, Carbon Dioxide 29, Anion Gap 8.7, BUN 38 H, Creatinine 1.20 H, Estimated Creat Clear 46, Estimated GFR 47 L, Est GFR ( Amer) 56 L, Glucose 94 D, Calcium 9.4 I & O for Labs for Last 24 Hours: Intake & Output 10/29/22 10/30/22 10/31/22 11/01/22 23:59 23:59 23:59 23:59 Intake Total 1561 / 1561 1180 / 1180 180 / 180 Output Total 0 / 575 2400 / 3400 4200 / 4200 450 / 450 Balance 0 / -515 -839 / -1839 -3020 / -3020 -270 / -270 Weight 131 lb 0.014 oz 132 lb 8 oz 123 lb 7.342 oz 120 lb 3.2 oz Microbiology Reports for the Last 24 Hours: Microbiology 10/30/22 10:05 Sputum - Expectorated Sputum Gram Stain - Final 10/30/22 10:05 Sputum - Expectorated Sputum Sputum Culture - Preliminary Constitutional: Present mild distress Head: Present normocephalic and atraumatic ENT: Present normal exam, normal oropharynx and mucous membranes moist Neck: Present normal inspection and full ROM Respiratory: Present accessory muscle use, respiratory distress, rhonchi, wheezes, diminished air movement and able to speak in complete sentences; Absent patient mechanically ventilated Cardiac: Present Diastolic Murmur, Tachycardia and radial pulses present; Absent S1/S2 GI: Present soft and distention; Absent tenderness or guarding Rectal (female): Present deferred (female): Present deferred Skin: Present intact; Absent cyanosis or jaundice Neuro: Present alert, awake and oriented x 3 Extremities: Present normal inspection; Absent clubbing or cyanosis Psychiatric: Present normal affect and cooperative Assessment and Plan *Assessment and plan (1) Acute and chronic respiratory failure: Status: Acute Category: Medical Code(s): J96.20 - Acute and chronic respiratory failure, unspecified whether with hypoxia or hypercapnia (2) Healthcare associated bacterial pneumonia: Status: Acute Category: Medical Code(s): J15.9 - Unspecified bacterial pneumonia (3) Bronchiectasis with (acute) exacerbation: Status: Acute Category: Medical Code(s): J47.1 - Bronchiectasis with (acute) exacerbation Plan 56-year-old history of COPD bronchiectasis recurrent pneumonia. Most recent hospital admission at [place] was September 2020 during which she is growing Klebsiella MDR and the plan was to discharge the patient on ertapenem to complete a 14-day course however patient left AMA. Patient also admits hospital admission at [facility] in [place] early October during which she stayed in the hospital for 7 days. AFB and RODO staining's negative She presented to the ER on this admission with worsening respiratory distress was admitted for further management. By leukosis on admission at 13.7 neutrophilic predominant. ABG on admission did not show any evidence of respiratory acidosis. Concern for metabolic acidosis. Slight worsening renal function, elevated BUN/creatinine and hyperkalemia. L
--- NOTE | 2022-11-01 10:11 | EXP.PHA.PN ---
Subjective *Date: 11/01/22 *Time: 10:11 Medical Exam Vital signs and Labs for Last 24 Hours: Vital Signs Temp Pulse Pulse Resp BP Pulse Ox 11/01/22 10:08 90 11/01/22 10:08 91 H 11/01/22 04:00 80 11/01/22 07:47 97.8 F 74 17 140/90 94 L 11/01/22 04:00 98.8 F 84 18 138/92 H 93 L 11/01/22 05:50 81 11/01/22 05:50 84 11/01/22 02:15 64 11/01/22 00:00 80 11/01/22 00:00 98.4 F 83 12 140/80 96 10/31/22 20:00 110 H 10/31/22 20:00 98 F 110 H 24 145/95 H 92 L 10/31/22 18:49 94 L 10/31/22 18:47 84 10/31/22 18:47 84 10/31/22 16:00 81 10/31/22 12:00 100 H 10/31/22 16:00 98.4 F 78 20 147/81 H 94 L 10/31/22 14:20 98 10/31/22 14:20 65 10/31/22 14:20 67 10/31/22 11:43 98.7 F 101 H 20 141/85 H 94 L Intake and Output 10/31/22 11/01/22 11/01/22 23:59 07:59 15:59 Intake Total 460 / 1180 180 / 180 Output Total 1800 / 4200 450 / 450 0 / 450 Balance -1340 / -3020 -270 / -270 0 / -270 Intake: Intake, Oral Amount 360 / 1080 180 / 180 Intake, Total IV Amount 100 / 100 Meropenem 1 gm In 0.9 % Sodium 100 / 100 Chloride 100 ml @ 100 mls/hr IV Q8H [facility] Rx#:[id number] Output: Output, Urine Amount 0 / 0 0 / 0 Output, Urine Amount (Catheter) 1800 / 1800 450 / 450 Gale 1800 / 1800 450 / 450 Other: Number of Unmeasured Voids 0 0 Weight 54.522 kg Patient Weight 11/01/22 23:59 Weight 54.522 kg Laboratory Results - last 24 hr 11/01/22 06:55: POC Glucose 96 11/01/22 06:57: WBC 15.5 H, RBC 4.02 L, Hgb 10.7 L, Hct 36.2 L, MCV 90.1, MCH 26.5 L, MCHC 29.4 L, RDW 20.5 H, Plt Count 316, MPV 8.7, Neut % (Auto) 83.2 H, Lymph % (Auto) 10.3, [place] % (Auto) 4.8, Eos % (Auto) 1.1, Baso % (Auto) 0.6, Neut # (Auto) 12.9 H, Lymph # (Auto) 1.6, [place] # (Auto) 0.8, Eos # (Auto) 0.2, Baso # (Auto) 0.1, Total Counted 100, Neutrophils % (Manual) 74, Lymphocytes % (Manual) 13, Monocytes % (Manual) 13 H, Platelet Estimate Normal, Poikilocytosis 1+, Anisocytosis 1+, Ovalocytes 1+ 11/01/22 06:57: Sodium 141, Potassium 4.7, Chloride 108 H, Carbon Dioxide 29, Anion Gap 8.7, BUN 38 H, Creatinine 1.20 H, Estimated Creat Clear 46, Estimated GFR 47 L, Est GFR ( Amer) 56 L, Glucose 94 D, Calcium 9.4 I & O for Labs for Last 24 Hours: Intake & Output 10/29/22 10/30/22 10/31/22 11/01/22 23:59 23:59 23:59 23:59 Intake Total 1561 / 1561 1180 / 1180 180 / 180 Output Total 0 / 575 2400 / 3400 4200 / 4200 450 / 450 Balance 0 / -515 -839 / -1839 -3020 / -3020 -270 / -270 Weight 59.421 kg 60.101 kg 56 kg 54.522 kg Microbiology Reports for the Last 24 Hours: Microbiology 10/30/22 10:05 Sputum - Expectorated Sputum Gram Stain - Final 10/30/22 10:05 Sputum - Expectorated Sputum Sputum Culture - Preliminary The patient's infection will respond to the chosen ABx?: Yes (SPUTUM PENDING) Is the patient receiving the right drug, dose, and route?: Yes Could a more targeted ABx be ordered?: No
--- NOTE | 2022-11-01 11:50 | EXP.ACUTE.PN ---
Subjective *Date: 11/01/22 *Time: 11:50 Interval history: Reports feeling somewhat better today. Stable oxygen requirement. Sputum culture growing gram-negative rods. No fever overnight. Sitting in bedside chair, alert and oriented on exam. Denies chest pain, nausea, vomiting, diarrhea. Pleased with current pain/medication regimen. Medical Exam Vital signs and Labs for Last 24 Hours: Vital Signs Temp Pulse Pulse Resp BP Pulse Ox 11/01/22 11:21 97.8 F 106 H 18 130/91 H 98 11/01/22 10:08 90 11/01/22 10:08 91 H 11/01/22 04:00 80 11/01/22 07:47 97.8 F 74 17 140/90 94 L 11/01/22 04:00 98.8 F 84 18 138/92 H 93 L 11/01/22 05:50 81 11/01/22 05:50 84 11/01/22 02:15 64 11/01/22 00:00 80 11/01/22 00:00 98.4 F 83 12 140/80 96 10/31/22 20:00 110 H 10/31/22 20:00 98 F 110 H 24 145/95 H 92 L 10/31/22 18:49 94 L 10/31/22 18:47 84 10/31/22 18:47 84 10/31/22 16:00 81 10/31/22 12:00 100 H 10/31/22 16:00 98.4 F 78 20 147/81 H 94 L 10/31/22 14:20 98 10/31/22 14:20 65 10/31/22 14:20 67 Intake and Output 10/31/22 11/01/22 11/01/22 23:59 07:59 15:59 Intake Total 460 / 1180 180 / 180 Output Total 1800 / 4200 450 / 1450 1000 / 1450 Balance -1340 / -3020 -270 / -1270 -1000 / -1270 Intake: Intake, Oral Amount 360 / 1080 180 / 180 Intake, Total IV Amount 100 / 100 Meropenem 1 gm In 0.9 % Sodium 100 / 100 Chloride 100 ml @ 100 mls/hr IV Q8H [facility] Rx#:[id number] Output: Output, Urine Amount 0 / 0 0 / 0 Output, Urine Amount (Catheter) 1800 / 1800 450 / 1450 1000 / 1450 Gale 1800 / 1800 450 / 1450 1000 / 1450 Other: Number of Unmeasured Voids 0 0 Weight 54.522 kg Patient Weight 11/01/22 23:59 Weight 54.522 kg Laboratory Results - last 24 hr 11/01/22 06:55: POC Glucose 96 11/01/22 06:57: WBC 15.5 H, RBC 4.02 L, Hgb 10.7 L, Hct 36.2 L, MCV 90.1, MCH 26.5 L, MCHC 29.4 L, RDW 20.5 H, Plt Count 316, MPV 8.7, Neut % (Auto) 83.2 H, Lymph % (Auto) 10.3, [place] % (Auto) 4.8, Eos % (Auto) 1.1, Baso % (Auto) 0.6, Neut # (Auto) 12.9 H, Lymph # (Auto) 1.6, [place] # (Auto) 0.8, Eos # (Auto) 0.2, Baso # (Auto) 0.1, Total Counted 100, Neutrophils % (Manual) 74, Lymphocytes % (Manual) 13, Monocytes % (Manual) 13 H, Platelet Estimate Normal, Poikilocytosis 1+, Anisocytosis 1+, Ovalocytes 1+ 11/01/22 06:57: Sodium 141, Potassium 4.7, Chloride 108 H, Carbon Dioxide 29, Anion Gap 8.7, BUN 38 H, Creatinine 1.20 H, Estimated Creat Clear 46, Estimated GFR 47 L, Est GFR ( Amer) 56 L, Glucose 94 D, Calcium 9.4 I & O for Labs for Last 24 Hours: Intake & Output 10/29/22 10/30/22 10/31/22 11/01/22 23:59 23:59 23:59 23:59 Intake Total 1561 / 1561 1180 / 1180 180 / 180 Output Total 0 / 575 2400 / 3400 4200 / 4200 1450 / 1450 Balance 0 / -515 -839 / -1839 -3020 / -3020 -1270 / -1270 Weight 59.421 kg 60.101 kg 56 kg 54.522 kg Microbiology Reports for the Last 24 Hours: Microbiology 10/30/22 10:05 Sputum - Expectorated Sputum Gram Stain - Final 10/30/22 10:05 Sputum - Expectorated Sputum Sputum Culture - Preliminary Gram Negative Rods Constitutional: Present mild distress, average body habitus and chronically ill appearing Head: Present atraumatic and normocephalic Eyes: Present as per HPI ENT: Present normal exam Comment:: leans to left Respiratory: Present rhonchi, wheezes, crackles and diminished air movement; Absent accessory muscle use Comment:: wet cough Cardiac: Present Reg Rate and Rhythm and S1/S2; Absent No Murmur GI: Present soft; Absent distention or tenderness Extremities: Present normal inspection; Absent tenderness or edema Skin: Present intact; Absent erythema Neuro: Present alert, awake, oriented x 3 and moves all extremities Additional Findings:: poor insight to condition and prognosis As
[2022-11-01 14:45] LABS: POC Glucose,Bedside 127 (70-110)
--- NOTE | 2022-11-01 17:48 | PC.NURSE ---
Pt up to chair at this time. Pt has been a/0 x 4 this shift. Pt has napped in chair this shift. When napping will arouse to sternal rub. Pt is now eating supper at this time. Pr remains on 2 L NC. No complaints or distress noted. Continues with IV ABT and R IJ in place, with no problems noted. CB is within easy reach and clip alarm remains in use for safety. Meds given per jan.
[2022-11-02] VITALS (9 sets, daily range): BP systolic 135–160; BP diastolic 71–88; PULSE 77–130; RESP 16–24; TEMP 36.3–37.2; O2SAT 89–96; BMI 24.0
--- NOTE | 2022-11-02 04:06 | PC.NURSE ---
no changes since previous assessment. tolerating 2L NC, tachycardic at times, rhonchi and crackles noted, crawford in place draining clear/yellow urine. A&OX4, very drowsy
--- NOTE | 2022-11-02 07:21 | EXP.ACUTE.PN ---
Subjective *Date: 11/02/22 *Time: 07:21 Medical Exam Vital signs and Labs for Last 24 Hours: Vital Signs Temp Pulse Pulse Resp BP Pulse Ox 11/02/22 06:26 95 H 11/02/22 06:26 95 H 11/02/22 06:26 91 L 11/02/22 04:00 100 H 11/02/22 04:00 97.4 F L 91 H 16 139/84 96 11/01/22 20:00 110 H 11/02/22 00:00 90 11/02/22 02:37 99 H 11/02/22 02:37 97 H 11/01/22 23:21 98.2 F 110 H 21 132/75 90 L 11/01/22 21:58 111 H 11/01/22 21:58 118 H 11/01/22 19:38 98.3 F 106 H 20 139/77 92 L 11/01/22 19:18 114 H 11/01/22 19:18 107 H 11/01/22 19:18 94 L 11/01/22 16:00 90 11/01/22 12:00 110 H 11/01/22 15:23 98.3 F 74 17 146/90 H 97 11/01/22 13:29 87 11/01/22 13:29 77 11/01/22 08:00 110 H 11/01/22 11:21 97.8 F 106 H 18 130/91 H 98 11/01/22 10:08 90 11/01/22 10:08 91 H 11/01/22 07:47 97.8 F 74 17 140/90 94 L Intake and Output 11/01/22 11/01/22 11/02/22 15:59 23:59 07:59 Intake Total 240 / 760 340 / 760 Output Total 1800 / 2675 425 / 2675 Balance -1559 / -1914 - / Intake: Intake, Oral Amount 240 / 660 240 / 660 Intake, Total IV Amount 100 / 100 Meropenem 1 gm In 0.9 % Sodium 100 / 100 Chloride 100 ml @ 100 mls/hr IV Q8H [facility] Rx#:[id number] Output: Output, Urine Amount 0 / 0 0 / 0 Output, Urine Amount (Catheter) 1800 / 2675 425 / 2675 Gale 1800 / 2675 425 / 2675 Other: Number of Unmeasured Voids 0 0 Weight 59.148 kg Patient Weight 11/02/22 23:59 Weight 59.148 kg Laboratory Results - last 24 hr 11/01/22 06:55: POC Glucose 96 11/01/22 06:57: WBC 15.5 H, RBC 4.02 L, Hgb 10.7 L, Hct 36.2 L, MCV 90.1, MCH 26.5 L, MCHC 29.4 L, RDW 20.5 H, Plt Count 316, MPV 8.7, Neut % (Auto) 83.2 H, Lymph % (Auto) 10.3, [place] % (Auto) 4.8, Eos % (Auto) 1.1, Baso % (Auto) 0.6, Neut # (Auto) 12.9 H, Lymph # (Auto) 1.6, [place] # (Auto) 0.8, Eos # (Auto) 0.2, Baso # (Auto) 0.1, Total Counted 100, Neutrophils % (Manual) 74, Lymphocytes % (Manual) 13, Monocytes % (Manual) 13 H, Platelet Estimate Normal, Poikilocytosis 1+, Anisocytosis 1+, Ovalocytes 1+ 11/01/22 06:57: Sodium 141, Potassium 4.7, Chloride 108 H, Carbon Dioxide 29, Anion Gap 8.7, BUN 38 H, Creatinine 1.20 H, Estimated Creat Clear 46, Estimated GFR 47 L, Est GFR ( Amer) 56 L, Glucose 94 D, Calcium 9.4 11/01/22 14:38: POC Glucose 127 H I & O for Labs for Last 24 Hours: Intake & Output 10/30/22 10/31/22 11/01/22 11/02/22 23:59 23:59 23:59 23:59 Intake Total 1561 / 1561 1180 / 1180 760 / 760 Output Total 2400 / 3400 4200 / 4200 2675 / 2675 Balance -839 / -1839 -3020 / -3020 -1915 / -1915 Weight 60.101 kg 56 kg 54.522 kg 59.148 kg Microbiology Reports for the Last 24 Hours: Microbiology 10/30/22 10:05 Sputum - Expectorated Sputum Gram Stain - Final 10/30/22 10:05 Sputum - Expectorated Sputum Sputum Culture - Preliminary Gram Negative Rods Assessment and Plan *Assessment and plan (1) Healthcare associated bacterial pneumonia: Status: Acute Category: Medical Code(s): J15.9 - Unspecified bacterial pneumonia (2) Acute and chronic respiratory failure: Status: Acute Category: Medical Code(s): J96.20 - Acute and chronic respiratory failure, unspecified whether with hypoxia or hypercapnia (3) Acute exacerbation of chronic obstructive pulmonary disease (COPD): Status: Acute Category: Medical Code(s): J44.1 - Chronic obstructive pulmonary disease with (acute) exacerbation (4) Diabetes mellitus: Status: Acute Category: Medical Code(s): E11.9 - Type 2 diabetes mellitus without complications (5) Chronic pain syndrome: Status: Chronic Category: Medical Code(s): G89.4 - Chronic pain syndrome Plan Patient is a 56-yea
[2022-11-02 07:50] LABS: Basophils # 0.1 K/mm3 (0-0.2); Basophils % 0.5 % (0.1-2.0); Eosinophils # 0.2 K/mm3 (0.0-0.4); Eosinophils % 0.9 % (0.1-12.0); Hematocrit 38.5 % (37.0-47.0); Hemoglobin 11.9 g/dL (12.2-16.2); Lymphocytes # 1.6 K/mm3 (0.7-4.5); Lymphocytes % 7.1 % (10-50); Mean Corpuscular Hemoglobin 26.6 pg (27.0-31.2); Mean Platelet Volume 9.4 fl (7.4-10.4); Monocytes % 4.8 % (1.7-9.3); Neutrophils # 18.7 K/mm3 (1.8-7.8); Neutrophils % 86.7 % (37.0-80.0); Platelet Count 297 K/mm3 (142-424); Red Blood Count 4.48 M/mm3 (4.20-5.40); White Blood Count 21.6 K/mm3 (4.8-10.8)
[2022-11-02 07:53] LABS: MANUAL DIFFERENTIAL MANUAL DIFFERENTIAL (MANUAL DIFF)
[2022-11-02 08:13] LABS: Chloride 103 mmol/L (98-107)
[2022-11-02 08:14] LABS: Potassium 4.7 mmoL/L (3.5-5.1); Sodium 140 mmol/L (136-145)
[2022-11-02 08:16] LABS: Blood Urea Nitrogen 38 mg/dl (7-17); Creatinine Clearance Estimated 54 mL/min (50-200); Estimated Glomerular Filt Rate 52 ml/min (>60); GFR (African American) 62 ML/MIN (>60)
[2022-11-02 08:17] LABS: Anion Gap 12.7 mEq/L (5-15); Calcium 9.6 mg/dl (8.4-10.2); Carbon Dioxide 29 mmol/L (22.0-30.0); Glucose 132 mg/dl (74-100)
[2022-11-02 08:30] LABS: Lymphocytes % 16 % (10-50); Monocytes % 3 % (2-9); Neutrophils % 81 % (42-76); Platelet Estimate Normal; RBC Morphology Normal; Total Cells Counted 100
--- NOTE | 2022-11-02 08:47 | PC.NURSE ---
Dr. Smith notified of Klebsiella pneumonia and esbl positive sputum. No orders as sensitivity report states its sensitive to merepenum
--- NOTE | 2022-11-02 09:44 | EXP.PULM.PN ---
Subjective *Date: 11/02/22 *Time: 13:00 Interval history: No acute respiratory vents overnight. Admits stable respiratory symptoms. Continue to have cough and productive phlegm. Pulmonology Exam Inpatient Vital signs and Labs for Last 24 Hours: Temp Pulse Resp BP Pulse Ox FiO2 97.9 F 110 H 24 135/71 89 L 28 11/02/22 07:21 11/02/22 07:21 11/02/22 07:21 11/02/22 07:21 11/02/22 07:21 10/30/22 19:05 Laboratory Results - last 24 hr 11/01/22 14:38: POC Glucose 127 H 11/02/22 07:24: WBC 21.6 H* D, RBC 4.48, Hgb 11.9 L, Hct 38.5, MCV 86.0, MCH 26.6 L, MCHC 31.0 L, RDW 20.0 H, Plt Count 297, MPV 9.4, Neut % (Auto) 86.7 H, Lymph % (Auto) 7.1 L, [place] % (Auto) 4.8, Eos % (Auto) 0.9, Baso % (Auto) 0.5, Neut # (Auto) 18.7 H, Lymph # (Auto) 1.6, [place] # (Auto) 1.0, Eos # (Auto) 0.2, Baso # (Auto) 0.1, Total Counted 100, Neutrophils % (Manual) 81 H, Lymphocytes % (Manual) 16, Monocytes % (Manual) 3, Platelet Estimate Normal, RBC Morphology Normal 11/02/22 07:24: Sodium 140, Potassium 4.7, Chloride 103, Carbon Dioxide 29, Anion Gap 12.7, BUN 38 H, Creatinine 1.10 H, Estimated Creat Clear 54, Estimated GFR 52 L, Est GFR ( Amer) 62, Glucose 132 H, Calcium 9.6 I & O for Labs for Last 24 Hours: Intake & Output 10/30/22 10/31/22 11/01/22 11/02/22 23:59 23:59 23:59 23:59 Intake Total 1561 / 1561 1180 / 1180 760 / 760 180 / 180 Output Total 2400 / 3400 4200 / 4200 2675 / 2675 0 / 0 Balance -839 / -1839 -3020 / -3020 -1915 / -1914 180 / 180 Weight 132 lb 8 oz 123 lb 7.342 oz 120 lb 3.2 oz 130 lb 6.384 oz Microbiology Reports for the Last 24 Hours: Microbiology 10/30/22 10:05 Sputum - Expectorated Sputum Gram Stain - Final 10/30/22 10:05 Sputum - Expectorated Sputum Sputum Culture - Final Klebsiella pneumoniae Constitutional: Present mild distress Head: Present normocephalic and atraumatic ENT: Present normal exam, normal oropharynx and mucous membranes moist Neck: Present normal inspection and full ROM Respiratory: Present accessory muscle use, respiratory distress, rhonchi, wheezes, diminished air movement and able to speak in complete sentences; Absent patient mechanically ventilated Cardiac: Present Diastolic Murmur, Tachycardia and radial pulses present; Absent S1/S2 GI: Present soft and distention; Absent tenderness or guarding Rectal (female): Present deferred (female): Present deferred Skin: Present intact; Absent cyanosis or jaundice Neuro: Present alert, awake and oriented x 3 Extremities: Present normal inspection; Absent clubbing or cyanosis Psychiatric: Present normal affect and cooperative Assessment and Plan *Assessment and plan (1) Acute and chronic respiratory failure: Status: Acute Category: Medical Code(s): J96.20 - Acute and chronic respiratory failure, unspecified whether with hypoxia or hypercapnia (2) Healthcare associated bacterial pneumonia: Status: Acute Category: Medical Code(s): J15.9 - Unspecified bacterial pneumonia (3) Bronchiectasis with (acute) exacerbation: Status: Acute Category: Medical Code(s): J47.1 - Bronchiectasis with (acute) exacerbation Plan 56-year-old history of COPD bronchiectasis recurrent pneumonia. Most recent hospital admission at [facility] was September 2020 during which she is growing Klebsiella MDR and the plan was to discharge the patient on ertapenem to complete a 14-day course however patient left AMA. Patient also admits hospital admission at [facility] in [place] early October during which she stayed in the hospital for 7 days. AFB and RODO staining's negative She presented to the ER on this admission with worsening respiratory distress was admitted for further management. By leukosis on admission at 13.7 neutrophilic predominant. ABG on admission did not show any evidence of respiratory acidosis. Concern for metabolic acidosis. Slight worsening renal function, elevated B
--- NOTE | 2022-11-02 11:25 | EXP.DC.SUM ---
General Admission date:: 10/29/22 Discharge date: 11/02/22 HPI HPI HPI: Patient is a 56-year-old female who was evaluated in the emergency department twice today for shortness of breath. During the initial first evaluation the patient was found to be in respiratory failure secondary to pneumonia. Prior to admission the patient left AGAINST MEDICAL ADVICE. Shortly after arriving home the patient then called 911 and was brought back to the hospital where she was placed on BiPAP. Patient is reportedly a frequent patient to [facility]. History is unable to be obtained due to BiPAP mask and respiratory distress. She denies any pain when asked and gives me a thumbs up when I ask if she feels better than on arrival. Hospital Course Hospital Course Hospital Course: Patient is a 56-year-old female admitted to the hospital for acute on chronic hypoxic respiratory failure secondary to pneumonia. Tolerating nasal cannula oxygen. Continues to require inpatient management and IV antibiotics. Problems addressed as follows: Acute on chronic hypoxic respiratory failure secondary to pneumonia Healthcare associated pneumonia - Pulmonology consulted, appreciate their recommendations. Patient admitted with recurrent pneumonia. Tolerated supplemental oxygen with goal greater than 90% during admission. Started on meropenem empirically based on previous cultures. Sputum culture growing Klebsiella, sensitive to meropenem and ertapenem. Transition to ertapenem for easier dosing at discharge. Patient will necessitate once daily dosing for total of 14 days of therapy. We will come back to infusion at [facility] to complete course. Close follow-up with pulmonology in the outpatient setting for further management. Continue duo nebs every 4 hours scheduled along with chest compression therapy 3 times a day. Continue home inhaler regimen. No other adjustments made to regimen. HUGO Urinary retention -Gale during admission. Initiated tamsulosin due to failed removal during admission. Improved after second removal. Continue tamsulosin at discharge. Anemia -Stable during admission. No transfusions necessary. Continued PPI during admission Of note, patient takes her buprenorphine 1 tablet twice daily as opposed to 2 tablets once a day. She also tolerated a lower dose of clonazepam without any worsening of her anxiety. With sputum cultures returning, antibiotic regimen for outpatient therapy determined. Stable for discharge home. Plan to return to infusion daily for Invanz injections once daily. Plan to complete 14 days total antibiotic therapy. Close follow-up with pulmonology for further evaluation. Case management attempted home health, unable to acquire due to patient's insurance constraints. Exam Data for Last 24 hours Vital signs and Labs for Last 24 Hours: Temp Pulse Resp BP Pulse Ox FiO2 97.9 F 77 24 135/71 89 L 28 11/02/22 07:21 11/02/22 11:01 11/02/22 07:21 11/02/22 07:21 11/02/22 07:21 10/30/22 19:05 Laboratory Results - last 24 hr 11/01/22 14:38: POC Glucose 127 H 11/02/22 07:24: WBC 21.6 H* D, RBC 4.48, Hgb 11.9 L, Hct 38.5, MCV 86.0, MCH 26.6 L, MCHC 31.0 L, RDW 20.0 H, Plt Count 297, MPV 9.4, Neut % (Auto) 86.7 H, Lymph % (Auto) 7.1 L, [place] % (Auto) 4.8, Eos % (Auto) 0.9, Baso % (Auto) 0.5, Neut # (Auto) 18.7 H, Lymph # (Auto) 1.6, [place] # (Auto) 1.0, Eos # (Auto) 0.2, Baso # (Auto) 0.1, Total Counted 100, Neutrophils % (Manual) 81 H, Lymphocytes % (Manual) 16, Monocytes % (Manual) 3, Platelet Estimate Normal, RBC Morphology Normal 11/02/22 07:24: Sodium 140, Potassium 4.7, Chloride 103, Carbon Dioxide 29, Anion Gap 12.7, BUN 38 H, Creatinine 1.10 H, Estimated Creat Clear 54, Estimated GFR 52 L, Est GFR ( Amer) 62, Glucose 132 H, Calcium 9.6 I & O for Last 24 hours: Intake & Output 10/30/22 10/31/22 11/01/22 11/02/22 23:59 23:59 23:59 23:59 Intake Total 1561 / 1561 118
--- NOTE | 2022-11-02 11:57 | HMH.PHAINT1 ---
Pharmacy Intervention Comments: Discharge counseling completed at bedside with the patient. Discussed new medications (ertapenem IM daily in the outpatient clinic, and tamsulosin), continued medications, and changed medications (clonazepam, nicotine gum, prednisone). Patient verbalized understanding and has no questions or concerns at this time.
--- NOTE | 2022-11-05 14:21 | CARE MANAGER ---
Attempted post-discharge phone interview, phones not taking messages.
== END 2022-11-02 16:10 | DRG 177 ==
LOC: ER 19:09 → 2ND 21:39
PROVIDERS: Admitting Provider Student in an Organized Health Care Education/Training Program; Emergency Provider Emergency Medicine; PCP Emergency Medicine; Visit Provider Internal Medicine Adolescent Medicine
DX: J15.0 Pneumonia due to Klebsiella pneumoniae (principal); A41.9 Sepsis, unspecified organism; J96.21 Acute and chronic respiratory failure with hypoxia; J47.0 Bronchiectasis with acute lower respiratory infection; N17.9 Acute kidney failure, unspecified; J47.1 Bronchiectasis with (acute) exacerbation; J15.6 Pneumonia due to other Gram-negative bacteria; E11.9 Type 2 diabetes mellitus without complications; I10 Essential (primary) hypertension; Z91.199 Patient's noncompliance with other medical treatment and regimen due to unspecified reason; G89.4 Chronic pain syndrome; F17.210 Nicotine dependence, cigarettes, uncomplicated; Z79.899 Other long term (current) drug therapy; Z79.890 Hormone replacement therapy; Y95 Nosocomial condition; I25.10 Atherosclerotic heart disease of native coronary artery without angina pectoris; I34.0 Nonrheumatic mitral (valve) insufficiency; Z95.5 Presence of coronary angioplasty implant and graft; D64.9 Anemia, unspecified; R33.9 Retention of urine, unspecified
CPT/HCPCS: 36415; 51702; 70371; 71045; 80048; 80053; 80061; 81001; 82803; 82962; 83605; 83735; 83880; 84100; 84484; 85007; 85025; 87040; 87070; 87077; 87186; 87205; 92526; 92610; 92611; 93005; 94640; 94760; 94761; 96365; 96375; 97110; 97116; 97162; 97166; 97530; 99285; C9803; J0574; J0692; J1335; J2185; J3370; U0003; U0005

== ENCOUNTER 2022-11-28 18:56 | Inpatient (IN) | payer OTHER, SELFPAY ==
[2022-11-28] VITALS (9 sets, daily range): BP systolic 108–140; BP diastolic 72–95; PULSE 106–118; RESP 16–24; TEMP 37.1–37.4; O2SAT 90–97; BMI 23.8; BMI 23.3
--- NOTE | 2022-11-28 19:15 | XR_ITS ---
PROCEDURE INFORMATION: Exam: XR Chest Exam date and time: 11/28/2022 7:32 PM Age: 56 years old Clinical indication: Shortness of breath; Additional info: SOA TECHNIQUE: Imaging protocol: Radiologic exam of the chest. Views: 1 view. COMPARISON: CR XR CHEST PORTABLE 10/29/2022 3:10 PM FINDINGS: Lungs: There is minor peribronchial cuffing bilaterally. There is improved aeration to the lung bases since prior exam. A few minor linear and patchy densities persist within the right lower lobe. No new no focal areas of consolidation. Pleural spaces: No pleural effusions or appreciable adenopathy. Negative for pneumothorax. Heart/Mediastinum: Cardiac silhouette and pulmonary vasculature are within range of normal. Bones/joints: There is no evidence of acute fracture. IMPRESSION: 1. Mild persistent peribronchial cuffing bilaterally. 2. Improved aeration to the lung bases since prior exam. A few minor linear and patchy densities persist within the right lower lobe.
[2022-11-28 19:23] LABS: Coronavirus 19, PCR Not Detected (NotDetected); Influenza A, PCR Not Detected (NotDetected); Influenza B, PCR Not Detected (NotDetected)
[2022-11-28 19:27] LABS: Basophils # 0.1 K/mm3 (0-0.2); Basophils % 0.8 % (0.1-2.0); Chloride 100 mmol/L (98-107); Eosinophils # 0.1 K/mm3 (0.0-0.4); Eosinophils % 1.5 % (0.1-12.0); Hematocrit 35.4 % (37.0-47.0); Hemoglobin 11.4 g/dL (12.2-16.2); Lymphocytes # 1.8 K/mm3 (0.7-4.5); Mean Corpuscular HGB Conc 32.2 g/dL (31.8-35.4); Mean Corpuscular Hemoglobin 28.2 pg (27.0-31.2); Mean Corpuscular Volume 87.5 fl (81-99); Mean Platelet Volume 8.7 fl (7.4-10.4); Monocytes # 0.6 K/mm3 (0.1-1.0); Monocytes % 5.8 % (1.7-9.3); Neutrophils # 6.8 K/mm3 (1.8-7.8); Neutrophils % 72.8 % (37.0-80.0); Platelet Count 269 K/mm3 (142-424); Red Blood Count 4.04 M/mm3 (4.20-5.40); Red Cell Distribution Width 18.1 % (11.5-17.5); White Blood Count 9.4 K/mm3 (4.8-10.8)
[2022-11-28 19:28] LABS: Potassium 3.1 mmoL/L (3.5-5.1); Sodium 139 mmol/L (136-145)
[2022-11-28 19:30] LABS: Blood Urea Nitrogen 15 mg/dl (7-17); Creatinine Clearance Estimated 39 mL/min (50-200); Estimated Glomerular Filt Rate 36 ml/min (>60); GFR (African American) 44 ML/MIN (>60)
[2022-11-28 19:31] LABS: Anion Gap 11.1 mEq/L (5-15); Calcium 9.1 mg/dl (8.4-10.2); Carbon Dioxide 31 mmol/L (22.0-30.0); Glucose 103 mg/dl (74-100)
[2022-11-28 19:37] LABS: ABG Base Excess 0.3 mmol/L (-2.4-2.3); ABG HCO3 26.3 mmhg (22.0-26.0); ABG Oxygen Saturation 91 % (90-100); ABG PH 7.33 mmol/L (7.35-7.45); ABG PO2 63.5 mmhg (80-100); ABG TCO2 27.9 mmhg (23-27)
[2022-11-28 19:38] LABS: Lactic Acid 1.3 mmol/L (0.7-2.1)
[2022-11-28 19:40] LABS: Allen's Test ACCEPTABLE; Source R RADIAL
--- NOTE | 2022-11-28 19:40 | PC.NURSE ---
co2 51.5, ph 7.33, aware
[2022-11-28 19:41] LABS: ABG PCO2 51.5 mmhg (35.0-45.0)
[2022-11-28 20:08] LABS: Troponin I 0.01 ng/ml (0.00-0.034)
--- NOTE | 2022-11-28 20:11 | ECG_ITS ---
APPROVED REPORT Exam: Resting ECG HR:107 bpm ECG Measurements Heart Rate 107 AXES WA 140 P 71 QRSd 92 QRS 69 QT 244 T 78 QTc 307 Conclusion SINUS TACHYCARDIA POSSIBLE RIGHT ATRIAL ENLARGEMENT [0.25mV P-WAVE] POSSIBLE LEFT ATRIAL ENLARGEMENT [-0.1mV P-WAVE IN V1/V2] NONSPECIFIC T-WAVE ABNORMALITY ABNORMAL RHYTHM ECG UNCONFIRMED REPORT Electronically signed by : Evaristo Gonzalez MD 11/30/2022 08:53:47
--- NOTE | 2022-11-28 20:52 | HMH.EDWEAK ---
Discharge Plan Disposition Patient Disposition: Admitted As Inpatient Chief Complaint: Weakness Clinical Impressions Clinical Impression: Acute exacerbation of chronic obstructive pulmonary disease (COPD), Acute and chronic respiratory failure Discharge ED Provider: Chuck Pineda HPI General Chief complaint: Weakness Stated complaint: Weakness Time Seen by Provider: 11/28/22 20:00 Mode of Arrival: EMS Source of Information: Patient, EMS and Medical Record Limitations: No Limitations Description of Symptoms (Recalled from ER Triage Doc. by RN): PT BROUGHT IN VIA EMS. PT FROM HOME. FRIEND REPORTS PT WAS SITTING IN THE FLOOR. PT REPORTS WEAKNESS History of Present Illness HPI Narrative: pt with reported weakness but denied chest pain - has hx of copd and resp failure - also has card valve dis - hx of tob use MD Complaint: generalized weakness Onset (ago): hour(s) Duration: intermittent Location: generalized Migration: none Severity: moderate Associated symptoms: denies other symptoms Related Data Home Medications Medication Instructions Recorded Confirmed buprenorphine 8 mg-naloxone 2 mg 2 tab sublingual DAILY opioid use 03/22/21 11/28/22 sublingual tablet disorder risperidone 2 mg tablet 2 mg PO HS Restless leg 08/04/22 11/28/22 ferrous sulfate 325 mg (65 mg 325 mg PO DAILY Supplement 08/27/22 11/28/22 iron) tablet folic acid 1 mg tablet 1 mg PO DAILY Supplement 08/27/22 11/28/22 bupropion HCl 75 mg tablet 75 mg PO BID Depression 09/26/22 11/28/22 clopidogrel 75 mg tablet 75 mg PO DAILY coronary artery 09/26/22 11/28/22 disease famotidine 40 mg tablet 40 mg PO DAILY acid reflux 09/26/22 11/28/22 fluticasone fur. 100 mcg-umeclid 1 inh inhalation DAILY COPD 09/26/22 11/28/22 62.5 mcg-vilant 25 mcg inhalat.powder (Trelegy Ellipta) furosemide 20 mg tablet 20 mg PO DAILY congestive heart 09/26/22 11/28/22 failure megestrol 625 mg/5 mL (125 mg/mL) 625 mg PO DAILY Supplement 09/26/22 11/28/22 oral suspension metoprolol succinate 25 mg 25 mg PO DAILY Hypertension 09/26/22 11/28/22 tablet,extended release 24 hr alendronate 70 mg tablet 70 mg PO WEEKLY Osteoporosis 10/30/22 11/28/22 buspirone 5 mg tablet 5 mg PO TID Anxiety 10/30/22 11/28/22 escitalopram oxalate 20 mg tablet 20 mg PO DAILY Depression 10/30/22 11/28/22 albuterol sulfate 90 mcg/actuation See Rx Instructions .Route 11/28/22 11/28/22 aerosol inhaler (ProAir HFA) .COMPLEX Breathing problems calcium carbonate 600 mg-vitamin See Rx Instructions .Route 11/28/22 11/28/22 D3 10 mcg (400 unit) tablet .COMPLEX Supplement estradiol 1 mg tablet See Rx Instructions .Route 11/28/22 11/28/22 .COMPLEX . omeprazole 40 mg capsule,delayed See Rx Instructions .Route 11/28/22 11/28/22 release .COMPLEX GERD rosuvastatin 5 mg tablet See Rx Instructions .Route 11/28/22 11/28/22 .COMPLEX High cholesterol tamsulosin 0.4 mg capsule 0.4 mg PO DAILY . 11/28/22 11/28/22 Previous Rx's Medication Instructions Recorded nicotine 21 mg/24 hr daily 21 mg transdermal DAILYP PRN 05/11/22 transdermal patch Nicotine Cravings #30 patches ipratropium 0.5 mg-albuterol 3 mg 3 ml inhalation QID PRN shortness 08/17/22 (2.5 mg base)/3 mL nebulization of breath #180 mL soln aspirin 81 mg tablet,delayed 81 mg PO DAILY Coronary artery 10/15/22 release disease #90 tabs tizanidine 4 mg tablet 4 mg PO Q8H PRN muscle spasticity 10/19/22 #90 tabs clonazepam 0.5 mg tablet 0.25 mg PO TID Anxiety 30 days #90 11/02/22 tabs gabapentin 300 mg capsule 300 mg PO TID nerve pain #90 caps 11/27/22 Allergies Allergy/AdvReac Type Severity Reaction Status Date / Time atorvastatin AdvReac Intermediate myalgia Verified 11/19/22 10:06 aspirin [ASPIRIN] AdvReac Unknown Verified 11/19/22 10:06 codeine [CODEINE] AdvReac Unknown Verified 11/19/22 10:06 propoxyphene [PROPOXYPHENE] AdvReac Unknown Verified 11/19/22 10:06 tramadol [TRAMADOL] AdvReac Unknown Verified 11/19/22
[2022-11-28 21:19] LABS: Microscopic, Urine URINE MICROSCOPIC (MICROSCOPIC)
[2022-11-28 21:36] LABS: Appearance,Urine CLEAR (Clear); Bilirubin,Urine Negative (Negative); Blood, Urine Negative (Negative); Color,Urine YELLOW (Yellow); Glucose,Urine (UA) Negative (Negative); Ketones,Urine TRACE (Negative); Leukocyte Esterase,Urine Negative (Negative); Nitrate,Urine Negative (Negative); Protein,Urine Negative (Negative); Urobilinogen,Urine 0.2 EU/dl (0.2)
[2022-11-28 21:48] LABS: Benzodiazepines Screen,Urine Negative ng/ml (<200)
[2022-11-28 21:49] LABS: Amphetamine/Metha Screen,Urine Negative ng/ml (<1000)
[2022-11-28 21:50] LABS: Barbiturates Screen,Urine Negative ng/ml (<200); Cannabinoid Screen,Urine Positive ng/ml (<50)
[2022-11-28 21:51] LABS: Cocaine Screen,Urine Negative ng/ml (<300)
[2022-11-28 21:52] LABS: Methadone Screen,Urine Negative ng/ml (<300); Opiate Screen,Urine Negative ng/ml (<300)
[2022-11-28 21:53] LABS: Phencyclidine Screen,Urine Negative ng/ml (<25)
[2022-11-28 22:19] LABS: Squamous Epithelial Cell,Urine Occasional #/hpf (0-5); WBC,Urine Occasional #/hpf (0-3)
--- NOTE | 2022-11-28 22:26 | EXP.HP ---
History of Present Illness *Admission Date: 11/28/22 *Reason for visit:: Lethargy/Hypoxia *History of present illness: Ms. Rush is a 56-year-old female with a past medical history of COPD, home oxygen dependent, h/o Recurrent Pneumonias, Bronchiectasis, Anxiety Disorder, Chronic Pain and Iron Deficiency Anemia. She presented to [facility] due to weakness, per charts reviewed she was found on the floor by friends and was complaining of weakness. In the ER, ABG showed a respiratory and metabolic acidosis. She was placed on BIPAP, Covid and Flu testing were negative. Cxray showed a improvement from prior imaging with some persistent patchy densities in the right lower lobe. Lactic acid was normal at 1.3. CBC with differential was unremarkable. UDS was positive for THC. On exam the patient will arouse, shakes head yes and no and falls back to sleep. The patient was admitted with initial impression: Acute on Chronic Hypoxic and Hypercapnic Respiratory Failure. Sedating medications will be held. The patient will be continued on BIPAP, further cultures will be ordered. [facility] Disclaimer: The information contained in this section may have been updated after the patient was seen, as this information can be updated by other users. 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 Abnormal ECG Acute exacerbation of chronic obstructive airways disease Acute exacerbation of chronic obstructive airways disease HUGO (acute kidney injury) Anemia Anxiety Aortic regurgitation Apnea Atypical chest pain Back Pain Bilateral lower extremity edema Bronchiectasis with (acute) exacerbation Bronchiectasis with acute lower respiratory infection Bronchiectasis without acute exacerbation CAD (coronary artery disease) Carotid artery disease without cerebral infarction Cervical radiculopathy Cervical spondylosis with radiculopathy Chest pain Chest pain Chronic headaches Congestive heart failure COPD (chronic obstructive pulmonary disease) COPD (chronic obstructive pulmonary disease) COPD (chronic obstructive pulmonary disease) COPD exacerbation COPD mixed type COPD with acute exacerbation Coronary artery disease Cough COVID-19 Depression Diastolic congestive heart failure Elevated erythrocyte sedimentation rate Exacerbation of bronchiectasis due to infection Falls Fatigue Fracture dislocation of joint Gram-negative pneumonia HCV (hepatitis C virus) History of intravenous drug use in remission Hoarseness Hyperlipidemia Insomnia Joint pain Joint pain of ankle and foot Left carpal tunnel syndrome Lipoma of abdominal wall LVH (left ventricular hypertrophy) Osteopenia Osteoporosis Osteoporosis without current pathological fracture Pain in metatarsus, bilateral Perimenopausal disorder Plantar fasciitis, bilateral Pneumonia Pneumonia Pneumonia Pneumonia Pneumonia due to COVID-19 virus Pneumonia due to other gram-negative bacteria Polysubstance abuse TOMY (renal artery stenosis) Recurrent bacterial pneumonia Renal insufficiency Respiratory failure Right arm pain Right leg pain Rotator cuff arthropathy of right shoulder Severe aortic regurgitation Severe sepsis with acute organ dysfunction Shortness of Breath Skin abscess Syncope and collapse Tobacco abuse Tobacco use Unresolved pneumonia Unstable angina Weakness Surgical History History of arthroscopic knee surgery History of breast biopsy History of cancer surgery History of cardiac cath History of carpal tunnel release History of section History of colonoscopy History of coronary artery stent placement History of hernia repair History of hysterectomy History of ureter stent Hx of cholecystectomy Family History Other Family history of COPD (chronic obstructive pulmonary disease) Family history of anemia Family history of
[2022-11-28 22:29] LABS: Adenovirus,PCR Not Detected (NotDetected); Bordetella Pertussis Not Detected (NotDetected); Chlamydophila Pneumoniae, PCR Not Detected (NotDetected); Coronavirus 19, PCR Not Detected (NotDetected); Coronavirus 229E Not Detected (NotDetected); Coronavirus NL63 Not Detected (NotDetected); Coronavirus OC43 Not Detected (NotDetected); Coronovirus HKU1,PCR Not Detected (NotDetected); Human Metapneumovirus Not Detected (NotDetected); Influenza A, PCR Not Detected (NotDetected); Influenza AH1, 2009 Not Detected (NotDetected); Influenza AH1, PCR Not Detected (NotDetected); Influenza AH3,PCR Not Detected (NotDetected); Influenza B, PCR Not Detected (NotDetected); Mycoplasma Pneumoniae, PCR Not Detected (NotDetected); Parainfluenza 1, PCR Not Detected (NotDetected); Parainfluenza 2, PCR Not Detected (NotDetected); Parainfluenza 3, PCR Not Detected (NotDetected); Parainfluenza 4, PCR Not Detected (NotDetected); Respiratory Syncytial Virus Not Detected (NotDetected); Rhinovirus/Enterovirus Not Detected (NotDetected)
[2022-11-28 22:50] LABS: Magnesium 1.7 mg/dl (1.6-2.3)
[2022-11-28 23:06] LABS: Troponin I < 0.01 ng/ml (0.00-0.034)
[2022-11-28 23:09] LABS: Procalcitonin 0.181 ng/mL (0.0-2.0)
[2022-11-29] VITALS (7 sets, daily range): BP systolic 117–127; BP diastolic 67–82; PULSE 84–110; RESP 14–26; TEMP 36.7–37; O2SAT 92–95; BMI 23.0
[2022-11-29 02:13] LABS: Troponin I < 0.01 ng/ml (0.00-0.034)
--- NOTE | 2022-11-29 05:16 | PC.NURSE ---
pt admitted this shift, pt is alert and oriented x4, pt slept well through the night when not disturbed. 02 sats 95% on 2L pnc of 02. vss, f/c to bsd with andrew clear urine noted, no acute distress, vss
[2022-11-29 06:48] LABS: ABG Base Excess 0.1 mmol/L (-2.4-2.3); ABG HCO3 26.3 mmhg (22.0-26.0); ABG Oxygen Saturation 91 % (90-100); ABG PH 7.32 mmol/L (7.35-7.45); ABG PO2 64.6 mmhg (80-100); ABG TCO2 27.9 mmhg (23-27)
[2022-11-29 06:50] LABS: Allen's Test Acceptable; Oxygen 2L NC %; Source Left Radial
[2022-11-29 06:52] LABS: ABG PCO2 52.8 mmhg (35.0-45.0)
--- NOTE | 2022-11-29 07:00 | PC.NURSE ---
abg results called to geoff myrick per rt
--- NOTE | 2022-11-29 08:37 | DIET.NUTRFU ---
CNS has seen patient on previous admit with recommendations of MSOFT with chopped meat and no straws. Updated diet and kitchen notified. Previously she needs multiple reminders to follow no straw recommendations.
--- NOTE | 2022-11-29 11:53 | EXP.ACUTE.PN ---
Subjective *Date: 11/29/22 *Time: 11:53 Medical Exam Vital signs and Labs for Last 24 Hours: Vital Signs Temp Pulse Pulse Resp BP BP Pulse Ox 11/29/22 11:42 98.5 F 87 24 123/82 95 11/29/22 09:48 84 18 11/29/22 08:00 98.4 F 102 H 26 H 121/76 94 L 11/29/22 07:57 102 H 11/29/22 06:10 105 H 11/29/22 06:10 108 H 11/29/22 06:10 92 L 11/29/22 04:00 95 H 11/29/22 04:00 98.0 F 98 H 14 117/67 95 11/29/22 00:00 110 H 11/29/22 00:00 107 H 92 L 11/29/22 00:00 98.6 F 104 H 16 127/75 92 L 11/28/22 23:25 98.7 F 110 H 18 140/85 91 L 11/28/22 22:55 99.4 F 115 H 24 128/75 11/28/22 21:30 115 H 128/75 95 11/28/22 21:00 106 H 132/95 H 97 11/28/22 20:30 107 H 137/84 94 L 11/28/22 20:00 108 H 134/81 90 L 11/28/22 19:30 115 H 108/72 L 90 L 11/28/22 21:22 11/28/22 18:56 99.2 F 118 H 20 112/77 95 FiO2 11/29/22 11:42 11/29/22 09:48 11/29/22 08:00 11/29/22 07:57 11/29/22 06:10 11/29/22 06:10 11/29/22 06:10 11/29/22 04:00 11/29/22 04:00 11/29/22 00:00 11/29/22 00:00 11/29/22 00:00 11/28/22 23:25 11/28/22 22:55 11/28/22 21:30 11/28/22 21:00 11/28/22 20:30 11/28/22 20:00 11/28/22 19:30 11/28/22 21:22 30 11/28/22 18:56 Intake and Output 11/28/22 11/29/22 11/29/22 23:59 07:59 15:59 Intake Total 480 / 480 Output Total 1050 / 1050 Balance -570 / -570 Intake: Intake, Oral Amount 480 / 480 Output: Output, Urine Amount 1050 / 1050 Other: Number of Unmeasured Voids 0 0 Weight 57.379 kg 56.835 kg Patient Weight 11/29/22 23:59 Weight 56.835 kg Laboratory Results - last 24 hr 11/28/22 19:10: WBC 9.4, RBC 4.04 L, Hgb 11.4 L, Hct 35.4 L, MCV 87.5, MCH 28.2, MCHC 32.2, RDW 18.1 H, Plt Count 269, MPV 8.7, Neut % (Auto) 72.8, Lymph % (Auto) 19.0, [place] % (Auto) 5.8, Eos % (Auto) 1.5, Baso % (Auto) 0.8, Neut # (Auto) 6.8, Lymph # (Auto) 1.8, [place] # (Auto) 0.6, Eos # (Auto) 0.1, Baso # (Auto) 0.1 11/28/22 19:10: Sodium 139, Potassium 3.1 L, Chloride 100, Carbon Dioxide 31 H, Anion Gap 11.1, BUN 15, Creatinine 1.50 H, Estimated Creat Clear 39, Estimated GFR 36 L, Est GFR ( Amer) 44 L, Glucose 103 H, Calcium 9.1, Troponin I 0.01 11/28/22 19:10: Lactate 1.3 11/28/22 19:10: SARS-CoV-2 (PCR) Not detected, Influenza A Untype (PCR) Not detected, Influenza Type B (PCR) Not detected 11/28/22 19:10: Chlamy pneumoniae PCR Not detected, Adenovirus (PCR) Not detected, B. pertussis DNA (PCR) Not detected, Coronavirus OC43 (PCR) Not detected, Coronavirus HKU1 (PCR) Not detected, Coronavirus 229E (PCR) Not detected, SARS-CoV-2 (PCR) Not detected, Coronavirus NL63 (PCR) Not detected, Human Metapneumovir PCR Not detected, Influenza A (H1) PCR Not detected, Influ A (H1N1/09) PCR Not detected, Influenza A (H3) PCR Not detected, Influenza Type A (PCR) Not detected, Influenza Type B (PCR) Not detected, M. pneumoniae (PCR) Not detected, Parainfluenza 1 (PCR) Not detected, Parainfluenza 2 (PCR) Not detected, Parainfluenza 3 (PCR) Not detected, Parainfluenza 4 (PCR) Not detected, RSV (PCR) Not detected, Entero/Rhino (PCR) Not detected 11/28/22 19:17: Specimen Source R radial, O2 % 2lpm, ABG pH 7.33 L, ABG pCO2 51.5 H, ABG pO2 63.5 L, ABG HCO3 26.3 H, ABG Total CO2 27.9 H, ABG O2 Saturation 91, ABG Base Excess 0.3, Rohan Test Acceptable 11/28/22 20:50: Urine Color Yellow, Urine Appearance Clear, Urine pH 6.0, Ur Specific Kevin 1.010, Urine Protein Negative, Urine Glucose (UA) Negative, Urine Ketones Trace, Urine Blood Negative, Urine Nitrate Negative, Urine Bilirubin Negative, Urine Urobilinogen 0.2, Ur Leukocyte Esterase Negative, Urine RBC None, Urine WBC Occasional, Ur Squamous Epith Cells Occasional, Urine Bacteria None 11/28/22 20:50: Urine Opiates Screen Negative, Urine Methadone Screen Negative, Ur Barbituates Screen Negative, Ur Phencyclidi
--- NOTE | 2022-11-29 12:33 | EXP.DC.SUM ---
General Admission date:: 11/28/22 Discharge date: 11/29/22 HPI HPI HPI: Ms. Rush is a 56-year-old female with a past medical history of COPD, home oxygen dependent, h/o Recurrent Pneumonias, Bronchiectasis, Anxiety Disorder, Chronic Pain and Iron Deficiency Anemia. She presented to [facility] due to weakness, per charts reviewed she was found on the floor by friends and was complaining of weakness. In the ER, ABG showed a respiratory and metabolic acidosis. She was placed on BIPAP, Covid and Flu testing were negative. Cxray showed a improvement from prior imaging with some persistent patchy densities in the right lower lobe. Lactic acid was normal at 1.3. CBC with differential was unremarkable. UDS was positive for THC. On exam the patient will arouse, shakes head yes and no and falls back to sleep. The patient was admitted with initial impression: Acute on Chronic Hypoxic and Hypercapnic Respiratory Failure. Sedating medications will be held. The patient will be continued on BIPAP, further cultures will be ordered. Hospital Course Hospital Course Hospital Course: Patient is a 56-year-old female admitted to the hospital for acute on chronic hypoxic respiratory failure secondary to pneumonia.? Tolerating nasal cannula oxygen.? Had quick improvement in mentation overnight. We will treat for COPD exacerbation. Problems addressed as follows: Acute on chronic hypoxic and hypercarbic respiratory failure COPD with exacerbation - UDS positive for THC, on sedating medications, holding medications during hospitalization. Patient requesting her Suboxone however. She is back to baseline mentation by morning after admission. Tolerated BiPAP overnight with stable blood gas. Full respiratory panel negative patient clinically has returned to baseline, will initiate oral treatment for COPD exacerbation. Stable for discharge home. - Anxiety Disorder -Chronic pain Held sedating medications and pain medications during hospitalization due to concern for lethargy and hypercapnia. Patient is adamantly requesting them. She understands that they may cause her to be confused. Informed her that I would not give them to her while she is still admitted. She has capacity to understand the risks with these medications. Chooses to continue to take them with her end-stage COPD. Patient discharged home as she is at baseline level of function. Acute problem is resolved. Exam Data for Last 24 hours Vital signs and Labs for Last 24 Hours: Temp Pulse Resp BP Pulse Ox FiO2 98.5 F 87 24 123/82 95 30 11/29/22 11:42 11/29/22 11:42 11/29/22 11:42 11/29/22 11:42 11/29/22 11:42 11/28/22 21:22 Laboratory Results - last 24 hr 11/28/22 19:10: WBC 9.4, RBC 4.04 L, Hgb 11.4 L, Hct 35.4 L, MCV 87.5, MCH 28.2, MCHC 32.2, RDW 18.1 H, Plt Count 269, MPV 8.7, Neut % (Auto) 72.8, Lymph % (Auto) 19.0, [place]oard % (Auto) 5.8, Eos % (Auto) 1.5, Baso % (Auto) 0.8, Neut # (Auto) 6.8, Lymph # (Auto) 1.8, [place]oard # (Auto) 0.6, Eos # (Auto) 0.1, Baso # (Auto) 0.1 11/28/22 19:10: Sodium 139, Potassium 3.1 L, Chloride 100, Carbon Dioxide 31 H, Anion Gap 11.1, BUN 15, Creatinine 1.50 H, Estimated Creat Clear 39, Estimated GFR 36 L, Est GFR ( Amer) 44 L, Glucose 103 H, Calcium 9.1, Troponin I 0.01 11/28/22 19:10: Lactate 1.3 11/28/22 19:10: SARS-CoV-2 (PCR) Not detected, Influenza A Untype (PCR) Not detected, Influenza Type B (PCR) Not detected 11/28/22 19:10: Chlamy pneumoniae PCR Not detected, Adenovirus (PCR) Not detected, B. pertussis DNA (PCR) Not detected, Coronavirus OC43 (PCR) Not detected, Coronavirus HKU1 (PCR) Not detected, Coronavirus 229E (PCR) Not detected, SARS-CoV-2 (PCR) Not detected, Coronavirus NL63 (PCR) Not detected, Human Metapneumovir PCR Not detected, Influenza A (H1) PCR Not detected, Influ A (H1N1/09) PCR Not detected, Influenza A (H3) PCR Not detected, Influenza Type A (PCR) Not detected, Influenza Type B (PCR) Not detected,
--- NOTE | 2022-11-29 13:39 | HMH.PHAINT1 ---
Pharmacy Intervention Comments: Patient declined discharge counseling due to familiarity with medications. Patient was instructed to START doxycycline and prednisone and continue home medications. Patient denied any questions or concerns at this time.
--- NOTE | 2022-11-29 13:53 | PC.NURSE ---
PT IS BEING DISCHARGED. AT 1200 PT STATED SHE WAS GOING TO SIGN OUT AMA IF SHE DID NOT GET TO TAKE HER SUBOXONE, GABAPENTIN AND CLONIPINE. PHYSICIAN ROUNDED AND STATED PT WAS BACK AT BASELINE AND WAS STABLE ENOUGH FOR DISCHARGE . PT WAS ABLE TO AMBULATE TO THE BATHROOM AND HAS URINATED SINCE CATHETER WAS DC'D. PT STATED SHE WOULD CALL AND MAKE FOLLOW UP WITH .
--- NOTE | 2022-12-03 15:02 | CARE MANAGER ---
Contacted patient related to hospital discharge. Patient states she is doing better. She has appointment with Dr. Pineda next week for follow up. YULISSA Cortes
[2022-12-03 16:22] LABS: Legionella pneumophila Urinary Negative (Negative)
[2022-12-05 21:03] LABS: Body Fluid Culture, Sterile Not indicated. (.); Organism ID Not indicated. (.); Specimen Source Urine (.); Streptococcus pneumoniae Ag Negative (Negative)
== END 2022-11-29 13:57 | disposition home or self-care (01) | DRG 189 ==
LOC: ER 19:54 → 2ND 21:55 → ICU 11-29 01:08 → 2ND 11-29 12:00
PROVIDERS: Nurse Practitioner Family; Admitting Provider Internal Medicine Adolescent Medicine; Emergency Provider Emergency Medicine; PCP Emergency Medicine; Visit Provider Internal Medicine Adolescent Medicine
DX: J96.21 Acute and chronic respiratory failure with hypoxia (principal); J44.1 Chronic obstructive pulmonary disease with (acute) exacerbation; I50.30 Unspecified diastolic (congestive) heart failure; J96.22 Acute and chronic respiratory failure with hypercapnia; I25.10 Atherosclerotic heart disease of native coronary artery without angina pectoris; I35.1 Nonrheumatic aortic (valve) insufficiency; F41.9 Anxiety disorder, unspecified; E78.5 Hyperlipidemia, unspecified; M81.0 Age-related osteoporosis without current pathological fracture; F17.210 Nicotine dependence, cigarettes, uncomplicated; Z95.5 Presence of coronary angioplasty implant and graft; Z99.81 Dependence on supplemental oxygen; G89.29 Other chronic pain; N18.9 Chronic kidney disease, unspecified
CPT/HCPCS: 36415; 51702; 71045; 80048; 80305; 81001; 82803; 83605; 83735; 84145; 84484; 85025; 87040; 87070; 87077; 87186; 87205; 87581; 87632; 87798; 87899; 93005; 94640; 99285; C9803; U0003; U0005

== ENCOUNTER → 2023-01-18 13:11 | Outpatient (CLI) | payer OTHER, SELFPAY | PROVIDERS: PCP Emergency Medicine; Visit Provider Internal Medicine Pulmonary Disease | DX: R06.00 Dyspnea, unspecified (principal) | CPT/HCPCS: 94060; 94618; 94726; 94729 ==

== ENCOUNTER → 2023-03-12 12:48 | Outpatient (CLI) | payer OTHER, SELFPAY ==
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
== END ==
PROVIDERS: PCP Emergency Medicine; Visit Provider Orthopaedic Surgery
DX: M25.561 Pain in right knee (principal); M25.562 Pain in left knee
CPT/HCPCS: 73562

== ENCOUNTER → 2023-03-19 13:09 | Outpatient (CLI) | payer OTHER, SELFPAY ==
[2023-03-19 16:50] LABS: Anion Gap 14.7 mEq/L (5-15); Blood Urea Nitrogen 17 mg/dl (7-17); Calcium 8.5 mg/dl (8.4-10.2); Carbon Dioxide 24 mmol/L (22.0-30.0); Chloride 106 mmol/L (98-107); Estimated Glomerular Filt Rate 42 ml/min (>60); GFR (African American) 51 ML/MIN (>60); Glucose 66 mg/dl (74-100); Potassium 3.7 mmoL/L (3.5-5.1); Sodium 141 mmol/L (136-145)
[2023-03-19 17:57] LABS: Hemoglobin A1C 5.5 % (4.0-6.0)
== END ==
LOC: LAB 13:09
PROVIDERS: PCP Emergency Medicine; Visit Provider Emergency Medicine
DX: E78.5 Hyperlipidemia, unspecified (principal); Z79.899 Other long term (current) drug therapy
CPT/HCPCS: 36415; 80048; 83036

== ENCOUNTER 2023-03-21 18:17 | Inpatient (IN) | payer OTHER, SELFPAY ==
--- NOTE | 2023-03-21 18:26 | ECG_ITS ---
APPROVED REPORT Exam: Resting ECG HR:118 bpm ECG Measurements Heart Rate 118 AXES SC 151 P 63 QRSd 93 QRS 50 QT 302 T 71 QTc 372 Conclusion SINUS TACHYCARDIA Left atrial abnormality MODERATE ST DEPRESSION [0.05+ mV ST DEPRESSION] ABNORMAL ECG UNCONFIRMED REPORT Electronically signed by : Evaristo Gonzalez MD 03/22/2023 14:20:43
[2023-03-21 18:28] VITALS: BP 149/86; PULSE 138; RESP 30; TEMP 36.6; O2SAT 65; BMI 22.8
--- NOTE | 2023-03-21 18:29 | XR_ITS ---
PROCEDURE INFORMATION: Exam: XR Chest Exam date and time: 03/21/2023 6:55 PM Age: 57 years old Clinical indication: Dyspnea; Additional info: SOA TECHNIQUE: Imaging protocol: Radiologic exam of the chest. Views: 1 view. COMPARISON: CR XR CHEST PORTABLE 11/28/2022 7:32 PM FINDINGS: Lungs: Mild hyperlucent changes demonstrated bilaterally. Mild ground-glass regions of opacification demonstrated in the mid to lower lungs. Superimposed regions of parenchymal scarring versus subsegmental atelectasis at the lung bases. Mild peribronchial thickening. Pleural spaces: Unremarkable. No pleural effusion. No pneumothorax. Heart/Mediastinum: Unremarkable. No cardiomegaly. Bones/joints: Unremarkable. IMPRESSION: 1. Findings compatible with mild changes of bronchitis. 2. Mild changes of chronic obstructive pulmonary disease.
--- NOTE | 2023-03-21 18:30 | HMH.EDGENADL ---
Discharge Plan Disposition Patient Disposition: Admitted As Inpatient Prescriptions Prescriptions: No Action tizanidine 4 mg tablet 4 mg PO Q8H PRN (Reason: muscle spasticity) Qty: 90 0RF buprenorphine-naloxone 8-2 mg tablet, sublingual 2 tab SL DAILY ferrous sulfate 325 mg (65 mg iron) tablet 325 mg PO DAILY doxycycline hyclate [Vibramycin] 100 mg capsule 100 mg PO BID Qty: 14 0RF prednisone 20 mg tablet See Rx Instructions .Route .COMPLEX Qty: 15 0RF Rx Instructions: Take 1 tablet twice daily for 5 days, then Take 1 tablet daily for 5 days; gabapentin 600 mg tablet 600 mg PO TID Qty: 90 1RF clonazepam 0.5 mg tablet 0.5 mg PO QID 30 Days Qty: 120 1RF ipratropium-albuterol 0.5 mg-3 mg(2.5 mg base)/3 mL solution for nebulization 3 ml inhalation QID PRN (Reason: shortness of breath) Qty: 180 3RF aspirin 81 mg tablet,delayed release (DR/EC) 81 mg PO DAILY Qty: 90 1RF ertapenem [Invanz] 1 gram recon soln 1 g IM DAILY 7 Days Qty: 7 0RF clopidogrel 75 mg tablet See Rx Instructions .ROUTE .COMPLEX Qty: 90 1RF Dose Instruction: TAKE ONE TABLET BY MOUTH ONCE A DAY Rx Instructions: TAKE ONE TABLET BY MOUTH ONCE A DAY folic acid 1 mg tablet 1 mg PO DAILY Qty: 90 0RF buspirone 5 mg tablet See Rx Instructions .ROUTE .COMPLEX Qty: 90 1RF Dose Instruction: TAKE ONE TABLET BY MOUTH 3 TIMES A DAY Rx Instructions: TAKE ONE TABLET BY MOUTH 3 TIMES A DAY escitalopram oxalate 20 mg tablet See Rx Instructions .ROUTE .COMPLEX Qty: 30 0RF Dose Instruction: TAKE ONE TABLET BY MOUTH ONCE A DAY Rx Instructions: TAKE ONE TABLET BY MOUTH ONCE A DAY furosemide 20 mg tablet See Rx Instructions .ROUTE .COMPLEX Qty: 30 0RF Dose Instruction: TAKE ONE TABLET BY MOUTH ONCE A DAY Rx Instructions: TAKE ONE TABLET BY MOUTH ONCE A DAY Trelegy Ellipta 100-62.5-25 mcg blister with device See Rx Instructions .ROUTE .COMPLEX Qty: 60 0RF Dose Instruction: INHALE 1 PUFF BY MOUTH ONCE A DAY Rx Instructions: INHALE 1 PUFF BY MOUTH ONCE A DAY albuterol sulfate [ProAir HFA] 90 mcg/actuation HFA aerosol inhaler See Rx Instructions .ROUTE .COMPLEX Qty: 8.5 0RF Dose Instruction: INHALE 2 PUFFS BY MOUTH EVERY 6 HOURS Rx Instructions: INHALE 2 PUFFS BY MOUTH EVERY 6 HOURS nicotine 21 MG/PATCH patch 24 hour 21 mg TD DAILYP PRN (Reason: Nicotine Cravings) Qty: 30 0RF risperidone 2 mg tablet 2 mg PO HS megestrol 625 mg/5 mL (125 mg/mL) suspension 625 mg PO DAILY Rx Instructions: TAKE 1 TEASPOONFUL (5ML) BY MOUTH ONCE A DAY famotidine 40 mg tablet 40 mg PO DAILY Rx Instructions: TAKE ONE TABLET BY MOUTH ONCE A DAY bupropion HCl 75 mg tablet 75 mg PO BID Rx Instructions: TAKE ONE TABLET BY MOUTH 2 TIMES A DAY metoprolol succinate 25 mg tablet extended release 24 hr 25 mg PO DAILY alendronate 70 mg tablet 70 mg PO WEEKLY Rx Instructions: On omeprazole 40 mg capsule,delayed release(DR/EC) See Rx Instructions .ROUTE .COMPLEX Rx Instructions: TAKE ONE CAPSULE BY MOUTH ONCE A DAY FOR GERD estradiol 1 mg tablet See Rx Instructions .ROUTE .COMPLEX Rx Instructions: TAKE ONE TABLET BY MOUTH ONCE A DAY tamsulosin 0.4 mg capsule 0.4 mg PO DAILY calcium carbonate-vitamin D3 600 mg-10 mcg (400 unit) tablet See Rx Instructions .ROUTE .COMPLEX Rx Instructions: TAKE ONE TABLET BY MOUTH ONCE A DAY rosuvastatin 5 mg tablet See Rx Instructions .ROUTE .COMPLEX Rx Instructions: TAKE ONE TABLET BY MOUTH ONCE A DAY Referrals Follow up/Referrals: Chuck Pineda MD [Primary Care Provider] - See instructions Clinical Impressions Clinical Impression: Acute exacerbation of chronic obstructive pulmonary disease, Acute respiratory failure with hypoxia and hyperc
[2023-03-21 18:33] VITALS: O2SAT 87
--- NOTE | 2023-03-21 18:33 | PC.NURSE ---
Duoneb initiated upon arrival
--- NOTE | 2023-03-21 18:38 | PC.NURSE ---
sending covid swab to lab
[2023-03-21 18:44] LABS: ABG Base Excess -4.7 mmol/L (-2.4-2.3); ABG HCO3 22.8 mmhg (22.0-26.0); ABG Oxygen Saturation 92 % (90-100); ABG PH 7.23 mmol/L (7.35-7.45); ABG PO2 66.1 mmhg (80-100); ABG TCO2 24.5 mmhg (23-27)
[2023-03-21 18:45] LABS: Coronavirus 19, PCR Not Detected (NotDetected); Influenza A, PCR Not Detected (NotDetected); Influenza B, PCR Not Detected (NotDetected)
--- NOTE | 2023-03-21 18:45 | PC.NURSE ---
Dr. Bagley at BS
[2023-03-21 18:46] LABS: Allen's Test Acceptable; Source Right Radial
[2023-03-21 18:49] LABS: ABG PCO2 55.9 mmhg (35.0-45.0)
[2023-03-21 18:49] LABS: Chloride 104 mmol/L (98-107); Potassium 3.8 mmoL/L (3.5-5.1); Sodium 141 mmol/L (136-145)
--- NOTE | 2023-03-21 18:50 | PC.NURSE ---
MD provided with Blood Gas results, PH 7.23, CO2 55.9, O2 66.1, HCO3 22.8, and O2 sat 92%. VO Bipap. RT notified.
[2023-03-21 18:52] LABS: Anion Gap 14.8 mEq/L (5-15); Basophils # 0.1 K/mm3 (0-0.2); Basophils % 0.4 % (0.1-2.0); Blood Urea Nitrogen 20 mg/dl (7-17); Carbon Dioxide 26 mmol/L (22.0-30.0); Creatinine Clearance Estimated 40 mL/min (50-200); Eosinophils # 0.7 K/mm3 (0.0-0.4); Eosinophils % 4.1 % (0.1-12.0); Estimated Glomerular Filt Rate 39 ml/min (>60); GFR (African American) 47 ML/MIN (>60); Hematocrit 43.4 % (37.0-47.0); Hemoglobin 13.4 g/dL (12.2-16.2); Lymphocytes # 1.9 K/mm3 (0.7-4.5); Lymphocytes % 11.5 % (10-50); Mean Corpuscular Hemoglobin 29.1 pg (27.0-31.2); Mean Platelet Volume 7.8 fl (7.4-10.4); Monocytes # 0.6 K/mm3 (0.1-1.0); Monocytes % 3.6 % (1.7-9.3); Neutrophils # 12.8 K/mm3 (1.8-7.8); Neutrophils % 80.3 % (37.0-80.0); Platelet Count 259 K/mm3 (142-424); Red Blood Count 4.62 M/mm3 (4.20-5.40); Red Cell Distribution Width 15.1 % (11.5-17.5)
[2023-03-21 18:53] LABS: Calcium 8.6 mg/dl (8.4-10.2); Glucose 113 mg/dl (74-100); Lactic Acid 1.3 mmol/L (0.7-2.1); MANUAL DIFFERENTIAL MANUAL DIFFERENTIAL (MANUAL DIFF)
[2023-03-21 19:06] LABS: Troponin I < 0.01 ng/ml (0.00-0.034)
--- NOTE | 2023-03-21 19:13 | PC.NURSE ---
Hospitalist, Uriel, at BS
[2023-03-21 19:17] VITALS: RESP 18; RESP 28
--- NOTE | 2023-03-21 19:29 | EXP.HP ---
History of Present Illness *Admission Date: 03/21/23 *Reason for visit:: shortness of air *History of present illness: Ms. Rush is a 57-year-old female with a past medical history of COPD, on chronic steroids and oxygen, Bronchiectasis, history of Recurrent Pneumonias, Anxiety Disorder, Chronic Pain, Iron Deficiency Anemia, CKD, and Hypertension. She presents to [facility] via EMS due to an acute episode of shortness of air that has been going on for 1 day duration. She denies fevers, chills or body aches. She does report a non-productive cough. She denies known similar sick contacts or over the counter medications for symptoms. She reports that she has been wearing her oxygen and taking her medications as prescribed. In the ER, on presentation the patient was found to be 65% on room air and reported that she was wearing her oxygen at home at 2L prn. ABG performed in the ER showed pH 7.23, PCO2 55.9, pO2 66.1 on FiO2 40%. Cxray showed mild ground glass regions in the mid to lower lung lobes. CBC showed an elevated WBC at 16.0. CMP showed Creatinine of 1.4. In the ER, the patient was placed on BIPAO at 10I E 5, FiO2 50%. She was given LR at 1L, Magnesium Sulfate 2 grams, Methylprednisolone 125 mg iv x 1, Duoneb. The patient was admitted with initial impression: Acute on Chronic Hypoxic and Hypercapnic Respiratory Failure, COPD exacerbation. [facility] Disclaimer: The information contained in this section may have been updated after the patient was seen, as this information can be updated by other users. 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 (Updated 03/22/23 @ 11:03 by Kraig Orourke MD) Abnormal ECG Anemia Anxiety Aortic regurgitation Apnea Back Pain Bronchiectasis without acute exacerbation CAD (coronary artery disease) Carotid artery disease without cerebral infarction Cervical radiculopathy Cervical spondylosis with radiculopathy Chronic headaches Congestive heart failure COPD (chronic obstructive pulmonary disease) Coronary artery disease COVID-19 Depression Diastolic congestive heart failure Elevated erythrocyte sedimentation rate Exacerbation of bronchiectasis due to infection Fatigue HCV (hepatitis C virus) History of intravenous drug use in remission Hoarseness Hyperlipidemia Insomnia Lipoma of abdominal wall LVH (left ventricular hypertrophy) Osteopenia Osteoporosis Osteoporosis without current pathological fracture Pneumonia Polysubstance abuse TOMY (renal artery stenosis) Renal insufficiency Severe aortic regurgitation Severe sepsis with acute organ dysfunction Skin abscess Syncope and collapse Tobacco abuse Unstable angina Surgical History History of arthroscopic knee surgery History of breast biopsy History of cancer surgery History of cardiac cath History of carpal tunnel release History of section History of colonoscopy History of coronary artery stent placement History of hernia repair History of hysterectomy History of ureter stent Hx of cholecystectomy Family History Other Family history of COPD (chronic obstructive pulmonary disease) Family history of anemia Family history of hyperlipidemia Family history of hypertension Social History (Updated 03/21/23 @ 21:14 by Joi Doan RN) Smoking Status: Current every day smoker tobacco type: cigarettes packs per day: 1 second hand exposure: No alcohol intake: never substance use type: painkillers current occupational status: disabled Travel in the last 8 weeks: None household members: friend(s) housing: house marital status: current occupational exposures/hazards: No caffeine: Yes Review of Systems Review of Systems Review of systems:: pertinent systems reviewed and negative unless documented below Constitutional Constitutional: Reports system reviewed and no additional compl
[2023-03-21 19:34] LABS: Anisocytosis 1+; Eosinophils % 1 % (0-3); Hypochromasia 1+; Lymphocytes % 9 % (10-50); Monocytes % 5 % (2-9); Neutrophils % 85 % (42-76); Platelet Estimate Normal; Total Cells Counted 100
--- NOTE | 2023-03-21 19:47 | PC.NURSE ---
Patient admitted observation to 201 to Hospitalist, with admitting dx of Copd wit exacerbation.
--- NOTE | 2023-03-21 20:44 | PC.NURSE ---
AT 2034 RECEIVED PHONE REPORT FROM [facility] ED NURSE. PATIENT 57 YO FEMALE BEING ADMITTED TO [id number] FOR SEVERE COPD EXACERBATION/RESP FAILURE. CAN BE TRANSPORTED BY W/C AND 02 AT 6LNC. WILL NEED BIPAP.
--- NOTE | 2023-03-21 20:59 | PC.NURSE ---
AT 2054 PATIENT ARRIVED TO THE FLOOR PER W/C WITH 02 6LNC. ADMITTED TO ROOM 201.
[2023-03-21 21:00] VITALS: BP 125/79; PULSE 110; RESP 17; TEMP 36.6; O2SAT 95; BMI 23.1
[2023-03-21 21:04] VITALS: RESP 18; RESP 25
--- NOTE | 2023-03-21 21:14 | PC.NURSE ---
Pt arrived to floor via wheelchair @ 2049
[2023-03-21 21:17] LABS: Adenovirus,PCR Not Detected (NotDetected); Bordetella Pertussis Not Detected (NotDetected); Chlamydophila Pneumoniae, PCR Not Detected (NotDetected); Coronavirus 19, PCR Not Detected (NotDetected); Coronavirus 229E Not Detected (NotDetected); Coronavirus NL63 Not Detected (NotDetected); Coronavirus OC43 Not Detected (NotDetected); Coronovirus HKU1,PCR Not Detected (NotDetected); Human Metapneumovirus Not Detected (NotDetected); Influenza A, PCR Not Detected (NotDetected); Influenza AH1, 2009 Not Detected (NotDetected); Influenza AH1, PCR Not Detected (NotDetected); Influenza AH3,PCR Not Detected (NotDetected); Influenza B, PCR Not Detected (NotDetected); Mycoplasma Pneumoniae, PCR Not Detected (NotDetected); Parainfluenza 1, PCR Not Detected (NotDetected); Parainfluenza 2, PCR Not Detected (NotDetected); Parainfluenza 3, PCR Not Detected (NotDetected); Parainfluenza 4, PCR Not Detected (NotDetected); Respiratory Syncytial Virus Not Detected (NotDetected); Rhinovirus/Enterovirus Not Detected (NotDetected)
[2023-03-21 21:49] LABS: Troponin I < 0.01 ng/ml (0.00-0.034)
[2023-03-21 22:10] LABS: ABG Base Excess -4.8 mmol/L (-2.4-2.3); ABG HCO3 22.9 mmhg (22.0-26.0); ABG Oxygen Saturation 92 % (90-100); ABG PH 7.22 mmol/L (7.35-7.45); ABG PO2 68.3 mmhg (80-100); ABG TCO2 24.7 mmhg (23-27)
[2023-03-21 22:14] LABS: Oxygen 6 LPM %
[2023-03-21 22:15] LABS: Allen's Test Acceptable; Source Right Radial
[2023-03-22] VITALS (12 sets, daily range): BP systolic 128–150; BP diastolic 68–86; PULSE 77–131; RESP 16–24; TEMP 36.1–36.7; O2SAT 92–100; BMI 24.3
--- NOTE | 2023-03-22 00:28 | PC.NURSE ---
LIPITOR ORDERED BY ANIKET LINTON AND GIVEN. NO APPARENT ADVERSE EFFECTS. MYALGIA WAS THE ALLERGY LISTED TO LIPITOR. WILL CONTINUE TO MONITOR.
[2023-03-22 01:57] LABS: Troponin I < 0.01 ng/ml (0.00-0.034)
--- NOTE | 2023-03-22 06:22 | PC.NURSE ---
PATIENT REPORTS BREATHING MUCH BETTER. HAS USED BIPAP THROUGHOUT THE NIGHT. VSS/AFEBRILE. DENIES PAIN/DISCOMFORT AT THIS TIME.
[2023-03-22 08:11] LABS: Basophils % 0.1 % (0.1-2.0); Eosinophils % 0.3 % (0.1-12.0); Mean Corpuscular Hemoglobin 28.6 pg (27.0-31.2); Monocytes # 0.3 K/mm3 (0.1-1.0); Monocytes % 1.7 % (1.7-9.3); Neutrophils # 15.2 K/mm3 (1.8-7.8)
[2023-03-22 08:18] LABS: Chloride 108 mmol/L (98-107); Potassium 4.2 mmoL/L (3.5-5.1); Sodium 141 mmol/L (136-145)
[2023-03-22 08:19] LABS: Hematocrit 38.2 % (37.0-47.0); Lymphocytes # 0.7 K/mm3 (0.7-4.5); Lymphocytes % 4.3 % (10-50); Mean Corpuscular HGB Conc 30.9 g/dL (31.8-35.4); Mean Corpuscular Volume 92.5 fl (81-99); Mean Platelet Volume 8.2 fl (7.4-10.4); Neutrophils % 93.6 % (37.0-80.0); Platelet Count 250 K/mm3 (142-424); Red Blood Count 4.13 M/mm3 (4.20-5.40); Red Cell Distribution Width 15.5 % (11.5-17.5); White Blood Count 16.2 K/mm3 (4.8-10.8)
[2023-03-22 08:21] LABS: Anion Gap 10.2 mEq/L (5-15); Blood Urea Nitrogen 19 mg/dl (7-17); Calcium 8.1 mg/dl (8.4-10.2); Carbon Dioxide 27 mmol/L (22.0-30.0); Creatinine Clearance Estimated 49 mL/min (50-200); Estimated Glomerular Filt Rate 46 ml/min (>60); GFR (African American) 56 ML/MIN (>60); Glucose 146 mg/dl (74-100)
[2023-03-22 08:25] LABS: Hemoglobin 11.8 g/dL (12.2-16.2); MANUAL DIFFERENTIAL MANUAL DIFFERENTIAL (MANUAL DIFF)
[2023-03-22 08:35] LABS: Lymphocytes % 2 % (10-50); Monocytes % 1 % (2-9); Neutrophils % 97 % (42-76); Total Cells Counted 100
[2023-03-22 08:36] LABS: Anisocytosis 1+; Macrocytosis 1+; Ovalocytes 1+; Platelet Estimate Normal
--- NOTE | 2023-03-22 08:38 | HMH.PHAINT1 ---
Pharmacy Intervention Comments: Reconciled patient's home medications using pharmacy fill history and patient interview.
--- NOTE | 2023-03-22 09:38 | EXP.PULM.CON ---
History of Present Illness History of present illness: Ms. Rush is a 57-year-old male history of COPD, bronchiectasis and recurrent pneumonias presented with worsening respiratory distress, cough, productive phlegm noted to be in acute hypoxic hypercarbic respiratory failure and pulmonary was called for further evaluation and management [facility] Disclaimer: The information contained in this section may have been updated after the patient was seen, as this information can be updated by other users. 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 (Updated 03/22/23 @ 11:03 by Kraig Orourke MD) Abnormal ECG Anemia Anxiety Aortic regurgitation Apnea Back Pain Bronchiectasis without acute exacerbation CAD (coronary artery disease) Carotid artery disease without cerebral infarction Cervical radiculopathy Cervical spondylosis with radiculopathy Chronic headaches Congestive heart failure COPD (chronic obstructive pulmonary disease) Coronary artery disease COVID-19 Depression Diastolic congestive heart failure Elevated erythrocyte sedimentation rate Exacerbation of bronchiectasis due to infection Fatigue HCV (hepatitis C virus) History of intravenous drug use in remission Hoarseness Hyperlipidemia Insomnia Lipoma of abdominal wall LVH (left ventricular hypertrophy) Osteopenia Osteoporosis Osteoporosis without current pathological fracture Pneumonia Polysubstance abuse TOMY (renal artery stenosis) Renal insufficiency Severe aortic regurgitation Severe sepsis with acute organ dysfunction Skin abscess Syncope and collapse Tobacco abuse Unstable angina Surgical History History of arthroscopic knee surgery History of breast biopsy History of cancer surgery History of cardiac cath History of carpal tunnel release History of section History of colonoscopy History of coronary artery stent placement History of hernia repair History of hysterectomy History of ureter stent Hx of cholecystectomy Family History Other Family history of COPD (chronic obstructive pulmonary disease) Family history of anemia Family history of hyperlipidemia Family history of hypertension Social History (Updated 03/21/23 @ 21:14 by Joi Doan RN) Smoking Status: Current every day smoker tobacco type: cigarettes packs per day: 1 second hand exposure: No alcohol intake: never substance use type: painkillers current occupational status: disabled Travel in the last 8 weeks: None household members: friend(s) housing: house marital status: current occupational exposures/hazards: No caffeine: Yes Review of Systems Constitutional Constitutional: Reports fatigue and Reports weakness Eyes Eyes: Denies eye discharge, Denies dry eyes, Denies irritation and Denies itchy eyes ENT Ears, Nose, Mouth, and Throat: Denies epistaxis, Denies facial pain, Denies lip swelling and Denies throat swelling *Cardiovascular Cardiovascular: Reports dyspnea and Reports dyspnea on exertion *Respiratory Respiratory: Reports chest congestion, Reports cough, Reports dyspnea, Reports dyspnea on exertion, Reports excessive phlegm production and Reports wheezing *Gastrointestinal Gastrointestinal: Denies abdominal pain, Denies belching and Denies cramping *Musculoskeletal Musculoskeletal: Reports back pain, Reports myalgias and Reports other (No small joint swelling or Pain) *Neurologic Neurologic: Reports system reviewed and no additional complaints, except as documented and Reports weakness Psychiatric Psychiatric: Denies homicidal ideation and Denies suicidal ideation Endocrine Endocrine: Reports fatigue and Denies heat intolerance Hematologic/Lymphatic Hematologic/Lymphatic: Denies easy bleeding and Denies lymphadenopathy Allergic/Immunologic Allergic/Immunologic: Denies itchy eyes, Denies lip swelling, Denies throat swelling and Reports wheezing
--- NOTE | 2023-03-22 09:49 | EXP.ACUTE.PN ---
Subjective *Date: 03/22/23 *Time: 15:29 Interval history: Patient alert and oriented this morning. On 6 L nasal cannula oxygen. Afebrile at this time. Answering questions appropriately. Tolerating p.o. intake. States she is feeling somewhat better. Medical Exam Vital signs and Labs for Last 24 Hours: Vital Signs Temp Pulse Pulse Resp BP Pulse Ox FiO2 03/22/23 08:00 97.3 F L 86 24 144/86 H 94 L 03/22/23 06:20 40 03/22/23 06:20 83 03/22/23 06:20 87 03/22/23 04:00 96.9 F L 93 H 16 135/77 100 03/22/23 02:00 50 03/22/23 00:20 93 H 03/22/23 00:20 92 H 03/21/23 21:00 98 F 110 H 17 125/79 95 03/21/23 21:00 95 03/21/23 21:04 50 03/21/23 19:17 50 03/21/23 18:33 87 L 03/21/23 18:28 98 F 138 H 30 H 149/86 H 65 L Intake and Output 03/21/23 03/22/23 03/22/23 23:59 07:59 15:59 Intake Total 1280 / 1280 Output Total 500 / 500 0 / 0 0 / 0 Balance -500 / 780 1280 / 1280 0 / 1280 Intake: Intake, Oral Amount 240 / 240 Intake, Total IV Amount 1040 / 1040 Lactated Ringers 1000ML 1,000 990 / 990 ml @ 999 mls/hr IV .Q1H1M [facility] Rx#:[id number] Magnesium Sulfate in Water 2 gm 50 / 50 In 50 ml @ 50 mls/hr IV ONCE ONE Rx#:[id number] Output: Output, Urine Amount 500 / 500 0 / 0 0 / 0 Other: Number of Unmeasured Voids 1 1 Weight 57.153 kg 59.874 kg Patient Weight 03/22/23 23:59 Weight 59.874 kg Laboratory Results - last 24 hr 03/21/23 18:28: Chlamy pneumoniae PCR Not detected, Adenovirus (PCR) Not detected, B. pertussis DNA (PCR) Not detected, Coronavirus OC43 (PCR) Not detected, Coronavirus HKU1 (PCR) Not detected, Coronavirus 229E (PCR) Not detected, SARS-CoV-2 (PCR) Not detected, Coronavirus NL63 (PCR) Not detected, Human Metapneumovir PCR Not detected, Influenza A (H1) PCR Not detected, Influ A (H1N1/09) PCR Not detected, Influenza A (H3) PCR Not detected, Influenza Type A (PCR) Not detected, Influenza Type B (PCR) Not detected, M. pneumoniae (PCR) Not detected, Parainfluenza 1 (PCR) Not detected, Parainfluenza 2 (PCR) Not detected, Parainfluenza 3 (PCR) Not detected, Parainfluenza 4 (PCR) Not detected, RSV (PCR) Not detected, Entero/Rhino (PCR) Not detected 03/21/23 18:31: Specimen Source Right radial, O2 % 10 lpm neb, ABG pH 7.23 L*, ABG pCO2 55.9 H, ABG pO2 66.1 L, ABG HCO3 22.8, ABG Total CO2 24.5, ABG O2 Saturation 92, ABG Base Excess -4.7 L, Rohan Test Acceptable 03/21/23 18:34: WBC 16.0 H, RBC 4.62, Hgb 13.4, Hct 43.4, MCV 94.0, MCH 29.1, MCHC 31.0 L, RDW 15.1, Plt Count 259, MPV 7.8, Neut % (Auto) 80.3 H, Lymph % (Auto) 11.5, [place] % (Auto) 3.6, Eos % (Auto) 4.1, Baso % (Auto) 0.4, Neut # (Auto) 12.8 H, Lymph # (Auto) 1.9, [place] # (Auto) 0.6, Eos # (Auto) 0.7 H, Baso # (Auto) 0.1, Total Counted 100, Neutrophils % (Manual) 85 H, Lymphocytes % (Manual) 9 L, Monocytes % (Manual) 5, Eosinophils % (Manual) 1, Platelet Estimate Normal, Hypochromasia 1+, Anisocytosis 1+ 03/21/23 18:34: Sodium 141, Potassium 3.8, Chloride 104, Carbon Dioxide 26, Anion Gap 14.8, BUN 20 H, Creatinine 1.40 H, Estimated Creat Clear 40, Estimated GFR 39 L, Est GFR ( Amer) 47 L, Glucose 113 H, Calcium 8.6, Troponin I < 0.01 03/21/23 18:34: Lactate 1.3 03/21/23 18:38: SARS-CoV-2 (PCR) Not detected, Influenza A Untype (PCR) Not detected, Influenza Type B (PCR) Not detected 03/21/23 21:20: Troponin I < 0.01 03/21/23 22:00: Specimen Source Right radial, O2 % 6 lpm, ABG pH 7.22 L*, ABG pCO2 57.0 H, ABG pO2 68.3 L, ABG HCO3 22.9, ABG Total CO2 24.7, ABG O2 Saturation 92, ABG Base Excess -4.8 L, Rohan Test Acceptable 03/22/23 00:35: Troponin I < 0.01 03/22/23 08:00: WBC 16.2 H, RBC 4.13 L, Hgb 11.8 L D, Hct 38.2, MCV 92.5, MCH 28.6, MCHC 30.9 L, RDW 15.5, Plt Count 250, MPV 8.2, Neut % (Auto) 93.6 H, Lymph % (Auto) 4.3 L, [place] % (Auto) 1.7, Eos % (Auto) 0.3, Baso % (Auto) 0.1, Neut # (Auto) 15.2 H, Lymph # (Aut
--- NOTE | 2023-03-22 12:18 | PC.NURSE ---
PT CURRENTLY ON 2L NC TOLERATING WELL.
--- NOTE | 2023-03-22 17:36 | PC.NURSE ---
A&OX4. PT STARTED OUT ON BIPAP THIS AM AND IS CURRENTLY ON 2L NC TOLERATING WELL. RESPIRATIONS REGULAR AND UNLABORED. EXPIRATORY WHEEZES NOTED THROUGHOUT. NO COUGH NOTED. +2 PULSES NOTED THROUGHOUT. REGULAR HEARTRATE. +1 PITTING EDEMA NOTED TO BLE. NO PAIN REPORTED THUS FAR. HAND SECOND CHEF EQUAL. ACTIVE BOWEL SOUNDS HEARD IN ALL 4 QUADRANTS. SOFT AND NONTENDER ABDOMEN. PT WALKS INDEPENDENTLY IN ROOM OR STANDBY ASSIST. STEADY GAIT NOTED. PT STATES SHE FEELS MUCH BETTER TODAY. PT HAS RECEIVED ANTIBIOTICS PER JAN AND TOLERATED WELL. PT HAS SAT UP IN THE CHAIR MOST OF THE AFTERNOON. PT IN CONTACT PRECAUTIONS FOR CRE. PT AWARE OF NEED FOR SPUTUM. BED IN LOWEST POSITION. CALL LIGHT WITHIN REACH. NO QUESTIONS OR CONCERNS VOICED. BOTH IV WENT BAD EARLY IN THE SHIFT AND AN IV WAS INSERTED IN R WRIST. WILL CONTINUE TO MONITOR.
[2023-03-23] VITALS (7 sets, daily range): BP systolic 129–139; BP diastolic 67–98; PULSE 74–114; RESP 17–22; TEMP 36.8; O2SAT 92–96; BMI 23.3
--- NOTE | 2023-03-23 04:53 | PC.NURSE ---
PATIENT DENIES PAIN. 02 SATS 92-96 ON 2LNC. HR JUMPS INTO 120s AND 130s WHEN UP AMBULATING IN ROOM. AFEBRILE. REFUSED BUSPAR AT HS. TOOK LIPITOR WITHOUT ADVERSE REACTIONS. CONTINUES WITH INSPIRATORY AND EXPIRATORY WHEEZES. R.T. WAS ABLE TO GET SPUTUM. REMAINS ON CONTACT PRECAUTIONS FOR H/O CRE IN SPUTUM.
--- NOTE | 2023-03-23 06:00 | XR_ITS ---
PROCEDURE INFORMATION: Exam: XR Chest Exam date and time: 03/23/2023 6:10 AM Age: 57 years old Clinical indication: Condition or disease; Lung condition and disease; Pneumonia TECHNIQUE: Imaging protocol: Radiologic exam of the chest. Views: 1 view. COMPARISON: CR XR CHEST PORTABLE 03/21/2023 6:55 PM FINDINGS: Lungs: Improving hazy opacities in the mid lung zones. Pleural spaces: Unremarkable. No pleural effusion. No pneumothorax. Heart/Mediastinum: Unremarkable. No cardiomegaly. Bones/joints: Unremarkable. IMPRESSION: Improving hazy opacities in the mid lung zones.
[2023-03-23 07:34] LABS: Basophils % 0.3 % (0.1-2.0); Chloride 112 mmol/L (98-107); Eosinophils % 0.4 % (0.1-12.0); Hemoglobin 11.5 g/dL (12.2-16.2); Lymphocytes % 10.5 % (10-50); Mean Corpuscular HGB Conc 29.6 g/dL (31.8-35.4); Mean Platelet Volume 9.7 fl (7.4-10.4); Monocytes % 2.8 % (1.7-9.3); Platelet Count 214 K/mm3 (142-424); Red Blood Count 3.98 M/mm3 (4.20-5.40); Red Cell Distribution Width 15.5 % (11.5-17.5); Sodium 141 mmol/L (136-145); White Blood Count 12.8 K/mm3 (4.8-10.8)
[2023-03-23 07:35] LABS: Lymphocytes # 1.3 K/mm3 (0.7-4.5); Monocytes # 0.4 K/mm3 (0.1-1.0)
[2023-03-23 07:36] LABS: MANUAL DIFFERENTIAL MANUAL DIFFERENTIAL (MANUAL DIFF)
[2023-03-23 07:37] LABS: Alanine Aminotransferase 10 U/L (12-78); Albumin Level 3.3 g/dl (3.5-5.0); Alkaline Phosphatase 58 U/L (38-126); Aspartate Amino Transferase 30 U/L (14-36); Bilirubin,Total 0.7 mg/dl (0.2-1.3); Blood Urea Nitrogen 21 mg/dl (7-17); Carbon Dioxide 16 mmol/L (22.0-30.0); Creatinine Clearance Estimated 52 mL/min (50-200); Estimated Glomerular Filt Rate 51 ml/min (>60); GFR (African American) 62 ML/MIN (>60); Globulin 3.2 g/dL (1.3-3.2); Glucose 160 mg/dl (74-100); Total Protein,Serum 6.5 g/dl (6.3-8.2)
[2023-03-23 07:38] LABS: Magnesium 2.2 mg/dl (1.6-2.3)
[2023-03-23 07:56] LABS: Lymphocytes % 11 % (10-50); Monocytes % 2 % (2-9); Neutrophils % 87 % (42-76); Total Cells Counted 100
[2023-03-23 07:57] LABS: Anisocytosis 1+; Macrocytosis 1+; Ovalocytes 1+; Platelet Estimate Normal
--- NOTE | 2023-03-23 09:14 | EXP.DC.SUM ---
General Admission date:: 03/21/23 HPI HPI HPI: Ms. Rush is a 57-year-old female with a past medical history of COPD, on chronic steroids and oxygen, Bronchiectasis, history of Recurrent Pneumonias, Anxiety Disorder, Chronic Pain, Iron Deficiency Anemia, CKD, and Hypertension. She presents to [facility] via EMS due to an acute episode of shortness of air that has been going on for 1 day duration. She denies fevers, chills or body aches. She does report a non-productive cough. She denies known similar sick contacts or over the counter medications for symptoms. She reports that she has been wearing her oxygen and taking her medications as prescribed. In the ER, on presentation the patient was found to be 65% on room air and reported that she was wearing her oxygen at home at 2L prn. ABG performed in the ER showed pH 7.23, PCO2 55.9, pO2 66.1 on FiO2 40%. Cxray showed mild ground glass regions in the mid to lower lung lobes. CBC showed an elevated WBC at 16.0. CMP showed Creatinine of 1.4. In the ER, the patient was placed on BIPAO at 10I E 5, FiO2 50%. She was given LR at 1L, Magnesium Sulfate 2 grams, Methylprednisolone 125 mg iv x 1, Duoneb. The patient was admitted with initial impression: Acute on Chronic Hypoxic and Hypercapnic Respiratory Failure, COPD exacerbation. Hospital Course Hospital Course Hospital Course: Patient was admitted for acute hypoxic hypercarbic respiratory failure secondary to pneumonia. She is severe COPD bronchiectasis and multiple prior pneumonias, followed by pulmonary clinic. Chest x-ray showed bilateral lobe infiltrates left greater than the right. Neutrophilic leukocytosis with hypercarbic respiratory failure. Respiratory viral PCR negative. Started on BiPAP steroids meropenem with significant improvement of her symptoms. On 03/23 patient had symptomatic improvement was back to her home oxygen levels and was requesting discharge. Discussed case with pulmonology he will follow-up next week in clinic. Will discharge on Augmentin 875 twice daily Exam Data for Last 24 hours Vital signs and Labs for Last 24 Hours: Temp Pulse Resp BP Pulse Ox FiO2 98.2 F 98 H 22 139/98 H 94 L 40 03/23/23 07:55 03/23/23 07:55 03/23/23 07:55 03/23/23 07:55 03/23/23 08:00 03/22/23 06:20 Laboratory Results - last 24 hr 03/23/23 07:00: WBC 12.8 H, RBC 3.98 L, Hgb 11.5 L, Hct 39.0, MCV 98.0, MCH 29.0, MCHC 29.6 L, RDW 15.5, Plt Count 214, MPV 9.7, Neut % (Auto) 86.0 H, Lymph % (Auto) 10.5, [place] % (Auto) 2.8, Eos % (Auto) 0.4, Baso % (Auto) 0.3, Neut # (Auto) 11.0 H, Lymph # (Auto) 1.3, [place] # (Auto) 0.4, Eos # (Auto) 0.0, Baso # (Auto) 0.0, Total Counted 100, Neutrophils % (Manual) 87 H, Lymphocytes % (Manual) 11, Monocytes % (Manual) 2, Platelet Estimate Normal, Anisocytosis 1+, Macrocytosis 1+, Ovalocytes 1+ 03/23/23 07:00: Sodium 141, Potassium 5.0, Chloride 112 H, Carbon Dioxide 16 L, Anion Gap 18.0 H, BUN 21 H, Creatinine 1.10 H, Estimated Creat Clear 52, Estimated GFR 51 L, Est GFR ( Amer) 62, Glucose 160 H, Calcium 8.0 L, Magnesium 2.2, Total Bilirubin 0.7, AST 30, ALT 10 L, Alkaline Phosphatase 58, Total Protein 6.5, Albumin 3.3 L, Globulin 3.2, Albumin/Globulin Ratio 1.0 L I & O for Last 24 hours: Intake & Output 03/20/23 03/21/23 03/22/23 03/23/23 23:59 23:59 23:59 23:59 Intake Total 2240 / 2720 960 / 960 Output Total 500 / 500 400 / 400 400 / 400 Balance -500 / 780 1840 / 2320 560 / 560 Weight 57.153 kg 59.87 kg 57.379 kg Microbiology Reports for the Last 24 Hours: Microbiology 03/22/23 19:55 Sputum - Expectorated Sputum Gram Stain - Final Constitutional Constitutional: no acute distress, average body habitus, chronically ill appearing and disheveled *Routine HEENT Exam Head: Present normocephalic and atraumatic Eye: Present EOMI and PERRL ENT: Present mucous membranes moist *Routine Neck Exam Neck: Present supple; Absent JVD Comments: le
[2023-03-25 17:26] LABS: Body Fluid Culture, Sterile Not indicated. (.); Organism ID Not indicated. (.); Specimen Source Urine (.); Streptococcus pneumoniae Ag Negative (Negative)
--- NOTE | 2023-03-26 13:33 | CARE MANAGER ---
Contacted patient related to hospital discharge. She states she is about the same. She is taking an antibiotic and is aware of her follow up appointment with pulmonology and denies questions or concerns. YULISSA Cortes
== END 2023-03-23 10:44 | disposition home or self-care (01) | DRG 193 ==
LOC: ER 18:56 → 2ND 03-22 00:09
PROVIDERS: Nurse Practitioner Family; Admitting Provider Internal Medicine Adolescent Medicine; Emergency Provider Student in an Organized Health Care Education/Training Program; PCP Emergency Medicine; Visit Provider Internal Medicine Adolescent Medicine
DX: J18.9 Pneumonia, unspecified organism (principal); J96.01 Acute respiratory failure with hypoxia; J96.02 Acute respiratory failure with hypercapnia; I50.32 Chronic diastolic (congestive) heart failure; I13.0 Hypertensive heart and chronic kidney disease with heart failure and stage 1 through stage 4 chronic kidney disease, or unspecified chronic kidney disease; J47.0 Bronchiectasis with acute lower respiratory infection; J47.1 Bronchiectasis with (acute) exacerbation; N18.9 Chronic kidney disease, unspecified; I25.10 Atherosclerotic heart disease of native coronary artery without angina pectoris; B18.2 Chronic viral hepatitis C; E78.5 Hyperlipidemia, unspecified; M81.0 Age-related osteoporosis without current pathological fracture; F17.210 Nicotine dependence, cigarettes, uncomplicated; D50.9 Iron deficiency anemia, unspecified; F41.9 Anxiety disorder, unspecified; G89.29 Other chronic pain; F45.42 Pain disorder with related psychological factors
CPT/HCPCS: 36415; 71045; 80048; 80053; 82803; 83605; 83735; 84484; 85007; 85025; 87040; 87070; 87205; 87581; 87632; 87798; 87899; 93005; 94640; 94761; 99291; C9803; J0574; J2185; J3475; U0003; U0005

== ENCOUNTER → 2023-04-17 14:54 | Outpatient (CLI) | payer OTHER, SELFPAY ==
--- NOTE | 2023-04-17 14:57 | CT_ITS ---
FINAL REPORT TECHNIQUE: Axial CT images were performed of the chest by computed tomography. High-resolution technique was utilized with supine inspiration and expiration and prone inspiration. CLINICAL HISTORY: . soa, High Resolution X3 Inspiration supine, expiration supine, inspiration prone FINDINGS: There is no axillary adenopathy. There are several borderline size mediastinal nodes. Heart size is normal. There is no pericardial or pleural effusion. Limited images of the upper abdomen are unremarkable. There is no evidence of emphysema or bronchiectasis. There is diffuse bronchial wall thickening consistent with bronchitis. There is mild atelectasis or scarring in the anterior lungs. Multiple small nodules are identified. There is a focal ground-glass nodule in left upper lobe measuring 9 mm. There is mild peripheral fibrosis/scarring. IMPRESSION: No evidence of emphysema or bronchiectasis. Mild peripheral fibrosis/scarring. Bronchial wall thickening consistent with bronchitis. Multiple small nodules, favor infectious/inflammatory. Recommend follow-up CT in 6 months. Reviewed, Interpreted and Dictated by Edward Espinoza III, MD Transcribed by Silvia Alford Authenticated and [facility]
== END ==
PROVIDERS: PCP Emergency Medicine; Visit Provider Internal Medicine Pulmonary Disease
DX: J84.9 Interstitial pulmonary disease, unspecified (principal); R06.89 Other abnormalities of breathing
CPT/HCPCS: 71250

== ENCOUNTER 2023-05-25 10:32 | Emergency (ER) | payer OTHER, SELFPAY ==
[2023-05-25] VITALS (9 sets, daily range): BP systolic 138–170; BP diastolic 67–96; PULSE 27–126; RESP 18–20; TEMP 36.9; O2SAT 90–100; BMI 23.4
--- NOTE | 2023-05-25 10:39 | XR_ITS ---
PROCEDURE INFORMATION: Exam: XR Chest Exam date and time: 05/25/2023 10:44 AM Age: 57 years old Clinical indication: Shortness of breath; Other: Chest pain radiating to back; Additional info: SOA, cp radiating to back TECHNIQUE: Imaging protocol: Radiologic exam of the chest. Views: 1 view. COMPARISON: CT HR CHEST X3 04/17/2023 3:06 PM FINDINGS: Lungs: Opacity in the medial right base may represent atelectasis or pneumonia.. Pleural spaces: Unremarkable. No pleural effusion. No pneumothorax. Heart/Mediastinum: Unremarkable. No cardiomegaly. Bones/joints: Unremarkable. IMPRESSION: Opacity in the medial right base may represent atelectasis or pneumonia..
--- NOTE | 2023-05-25 10:41 | CT_ITS ---
PROCEDURE INFORMATION: Exam: CTA Chest With Contrast Exam date and time: 05/25/2023 11:20 AM Age: 57 years old Clinical indication: Other: Chest pain radiating to back; Additional info: Cp radiating to back, trouble swallowing TECHNIQUE: Imaging protocol: Computed tomographic angiography of the chest with contrast. Exam focused on the arteries. 3D rendering (Not supervised by radiologist): MIP and/or 3D reconstructed images were created by the technologist. Radiation optimization: All CT scans at this facility use at least one of these dose optimization techniques: automated exposure control; mA and/or kV adjustment per patient size (includes targeted exams where dose is matched to clinical indication); or iterative reconstruction. Contrast material: ISOVUE; Contrast volume: 100 ml; Contrast route: INTRAVENOUS (IV); REPORTING DATA: Count of CT and Cardiac NM exams in prior 12 months: This patient has received [address] and 0 known cardiac nuclear medicine studies in the 12 months prior to the current study. COMPARISON: CT HR CHEST X3 04/17/2023 3:06 PM FINDINGS: Pulmonary arteries: No evidence of pulmonary embolus in the main pulmonary arteries. Aorta: No aneurysm of the aorta. No dissection of the aorta. Lungs: Opacities in the right middle lobe and left lower lobe may represent multifocal pneumonia.. Pleural spaces: Unremarkable. No pneumothorax. No pleural effusion. Heart: Small pericardial effusion Lymph nodes: Unremarkable. No enlarged lymph nodes. Gallbladder and bile ducts: Cholecystectomy. The common duct is prominent. It measures 10 millimeters. This may be due to post cholecystectomy state and elderly status. However, if biliary obstruction is suspected clinically, recommend further evaluation Bones/joints: Unremarkable. No acute fracture. Soft tissues: Unremarkable. IMPRESSION: 1. No evidence of pulmonary embolus in the main pulmonary arteries. 2. No aneurysm of the aorta. 3. No dissection of the aorta. 4. Opacities in the right middle lobe and left lower lobe may represent multifocal pneumonia..
[2023-05-25 10:53] LABS: Coronavirus 19, PCR Not Detected (NotDetected); Influenza A, PCR Not Detected (NotDetected); Influenza B, PCR Not Detected (NotDetected)
--- NOTE | 2023-05-25 10:53 | ECG_ITS ---
APPROVED REPORT Exam: Resting ECG HR:112 bpm ECG Measurements Heart Rate 112 AXES VA 124 P 65 QRSd 88 QRS 55 QT 335 T 66 QTc 401 Conclusion SINUS TACHYCARDIA LEFT ATRIAL ENLARGEMENT [-0.15mV P-WAVE IN V1/V2] ABNORMAL ECG UNCONFIRMED REPORT Electronically signed by : Evaristo Gonzalez MD 05/25/2023 21:16:09
[2023-05-25 11:04] LABS: Basophils % 0.2 % (0.1-2.0); Eosinophils # 0.3 K/mm3 (0.0-0.4); Eosinophils % 2.1 % (0.1-12.0); Hematocrit 45.7 % (37.0-47.0); Lipase 40 U/L (23-300); Lymphocytes # 1.4 K/mm3 (0.7-4.5); Lymphocytes % 9.2 % (10-50); Mean Corpuscular HGB Conc 30.7 g/dL (31.8-35.4); Mean Corpuscular Hemoglobin 28.4 pg (27.0-31.2); Mean Corpuscular Volume 92.5 fl (81-99); Mean Platelet Volume 8.9 fl (7.4-10.4); Monocytes # 0.5 K/mm3 (0.1-1.0); Monocytes % 3.1 % (1.7-9.3); Neutrophils # 12.8 K/mm3 (1.8-7.8); Neutrophils % 85.3 % (37.0-80.0); Platelet Count 211 K/mm3 (142-424); Red Blood Count 4.94 M/mm3 (4.20-5.40); Red Cell Distribution Width 14.7 % (11.5-17.5)
[2023-05-25 11:05] LABS: ABG Base Excess 3.8 mmol/L (-2.4-2.3); ABG HCO3 29.7 mmhg (22.0-26.0); ABG Oxygen Saturation 93 % (90-100); ABG PH 7.33 mmol/L (7.35-7.45); ABG PO2 64.9 mmhg (80-100); ABG TCO2 31.5 mmhg (23-27); Allen's Test Acceptable; Oxygen 4 LNC %
[2023-05-25 11:05] LABS: Alanine Aminotransferase 16 U/L (12-78); Albumin Level 3.7 g/dl (3.5-5.0); Albumin/Globulin Ratio 1.1 (1.1-1.8); Alkaline Phosphatase 85 U/L (38-126); Anion Gap 13.1 mEq/L (5-15); Aspartate Amino Transferase 23 U/L (14-36); Bilirubin,Total 0.2 mg/dl (0.2-1.3); Blood Urea Nitrogen 18 mg/dl (7-17); Calcium 8.3 mg/dl (8.4-10.2); Carbon Dioxide 32 mmol/L (22.0-30.0); Chloride 104 mmol/L (98-107); Creatinine Clearance Estimated 42 mL/min (50-200); Estimated Glomerular Filt Rate 42 ml/min (>60); GFR (African American) 51 ML/MIN (>60); Globulin 3.4 g/dL (1.3-3.2); Glucose 104 mg/dl (74-100); MANUAL DIFFERENTIAL MANUAL DIFFERENTIAL (MANUAL DIFF); Potassium 3.1 mmoL/L (3.5-5.1); Sodium 146 mmol/L (136-145); Total Protein,Serum 7.1 g/dl (6.3-8.2)
[2023-05-25 11:06] LABS: Source Right Radial
--- NOTE | 2023-05-25 11:07 | HMH.EDGENADL ---
Discharge Plan Disposition Patient Disposition: Home, Self-Care Condition: Good Prescriptions Prescriptions: New cefdinir 300 mg capsule 300 mg PO BID 10 Days Qty: 20 0RF azithromycin 500 mg tablet 500 mg PO DAILY 3 Days Qty: 3 0RF No Action omeprazole 40 mg capsule,delayed release(DR/EC) 40 mg PO DAILY minocycline 100 mg capsule 100 mg PO BID Qty: 20 0RF prednisone 20 mg tablet See Rx Instructions .Route .COMPLEX Qty: 15 0RF Rx Instructions: Take 1 tablet twice daily for 5 days, then Take 1 tablet daily for 5 days; clonazepam 0.5 mg tablet 0.5 mg PO QID Qty: 120 1RF gabapentin 600 mg tablet 600 mg PO TID Qty: 90 1RF escitalopram oxalate 20 mg tablet See Rx Instructions .ROUTE .COMPLEX Qty: 30 2RF Dose Instruction: TAKE ONE TABLET BY MOUTH ONCE A DAY Rx Instructions: TAKE ONE TABLET BY MOUTH ONCE A DAY furosemide 20 mg tablet See Rx Instructions .ROUTE .COMPLEX Qty: 30 1RF Dose Instruction: TAKE ONE TABLET BY MOUTH ONCE A DAY Rx Instructions: TAKE ONE TABLET BY MOUTH ONCE A DAY Trelegy Ellipta 100-62.5-25 mcg blister with device See Rx Instructions .ROUTE .COMPLEX Qty: 60 1RF Dose Instruction: INHALE 1 PUFF BY MOUTH ONCE A DAY Rx Instructions: INHALE 1 PUFF BY MOUTH ONCE A DAY albuterol sulfate 90 mcg/actuation HFA aerosol inhaler See Rx Instructions .ROUTE .COMPLEX Qty: 8.5 0RF Dose Instruction: INHALE 2 PUFFS BY MOUTH EVERY 6 HOURS Rx Instructions: INHALE 2 PUFFS BY MOUTH EVERY 6 HOURS tizanidine 4 mg tablet See Rx Instructions .ROUTE .COMPLEX Qty: 90 0RF Dose Instruction: TAKE ONE TABLET BY MOUTH EVERY 8 HOURS NEEDED FOR MUSCLE SPASTICITY Rx Instructions: TAKE ONE TABLET BY MOUTH EVERY 8 HOURS NEEDED FOR MUSCLE SPASTICITY clopidogrel 75 mg tablet 75 mg PO DAILY aspirin 81 mg tablet,delayed release (DR/EC) 81 mg PO DAILY risperidone 2 mg tablet 2 mg PO DAILY estradiol 1 mg tablet 1 mg PO DAILY ferrous sulfate [FeroSul] 325 mg (65 mg iron) tablet 325 mg PO DAILY folic acid 1 mg tablet 1 mg PO DAILY buprenorphine-naloxone 8-2 mg tablet, sublingual 2 tab SUBLINGUAL DAILY rosuvastatin 5 mg tablet 5 mg PO DAILY mirtazapine 7.5 mg tablet 7.5 mg PO DAILY Referrals Follow up/Referrals: Chuck Pineda MD [Primary Care Provider] - See instructions Clinical Impressions Clinical Impression: CAP (community acquired pneumonia) Discharge ED Provider: Arik Romero General Adult HPI General Chief complaint: Shortness of Breath/Dyspnea Stated complaint: SOA Time Seen by Provider: 05/25/23 10:35 Mode of Arrival: EMS Source of Information: Patient and EMS Limitations: No Limitations Description of Symptoms (Recalled from ER Triage Doc. by RN): pt to ed c/o SOA. pt states she was eating a hot dog last night, got choked and is having trouble breathing today. pt reports a hx of copd, dependent on 3L NC @ baseline. pt states she has been able to pass fluid. pt c/o pain to her epigastric region that hurts through to her back. History of Present Illness HPI narrative: This a 57-year-old female with history of chronic dysphagia, hypertension, hyperlipidemia, COPD with chronic respiratory failure with hypercapnia and hypoxia currently on 3 L nasal cannula at home, aortic insufficiency, CAD without heart attack presenting with shortness of breath. Patient states that 1 day prior to arrival, she was eating a hot dog and began choking. Had to make herself vomit in order to expel the food. Was unable to tolerate any p.o. intake while hot dog felt as if it was stuck in her chest. Has been able to tolerate fluids and secretions since that time, but minimally. Patient states that she has intermittent, moderate chest pains that are substernal, radiates through to her back not associated with nausea, vomiting, diaphoresis
[2023-05-25 11:08] LABS: ABG PCO2 57.6 mmhg (35.0-45.0)
--- NOTE | 2023-05-25 11:15 | PC.NURSE ---
pt given pencil and paper per request. tap judy at BS
[2023-05-25 11:16] LABS: NT Pro Brain Natriuretic Pep. 1090 pg/mL (0-125); Troponin I 0.01 ng/ml (0.00-0.034)
[2023-05-25 11:19] LABS: Lactic Acid 1.2 mmol/L (0.7-2.1)
[2023-05-25 11:26] LABS: Eosinophils % 3 % (0-3); Lymphocytes % 9 % (10-50); Monocytes % 2 % (2-9); Neutrophils % 86 % (42-76); Total Cells Counted 100
[2023-05-25 11:30] LABS: RBC Morphology Normal
[2023-05-25 11:31] LABS: Platelet Estimate Normal
--- NOTE | 2023-05-25 12:04 | PC.NURSE ---
pt sleeping sitting up in bed. tap kim within reach
--- NOTE | 2023-05-25 13:00 | PC.NURSE ---
CHECKED ON PT STATES SHE IS NAUSEA FEELING, GAVE HER A CRUZ RALE AND WAITING TO SPEAK WITH DR ABOUT GETTING HER MEDS FOR NAUSEA
--- NOTE | 2023-05-25 14:12 | PC.NURSE ---
GAVE PT A MT.DEW NOTHING ELSE NEEDED, LET PT KNOW ONCE [facility] FINISH SHE WILL BE DISCHARGED HOME, TAP JENN AT BS
== END 2023-05-25 15:58 | disposition home or self-care (01) ==
PROVIDERS: Emergency Provider Emergency Medicine; PCP Emergency Medicine
DX: J18.9 Pneumonia, unspecified organism (principal); E87.6 Hypokalemia; R94.31 Abnormal electrocardiogram [ECG] [EKG]; J96.11 Chronic respiratory failure with hypoxia; J44.9 Chronic obstructive pulmonary disease, unspecified; I35.1 Nonrheumatic aortic (valve) insufficiency; I10 Essential (primary) hypertension; E78.5 Hyperlipidemia, unspecified; Z87.891 Personal history of nicotine dependence
CPT/HCPCS: 71045; 71275; 80053; 82803; 83605; 83690; 83880; 84484; 85007; 85025; 87635; 87636; 93005; 96361; 96374; 96375; 99285; C9803; J0456; J0696; J2405; Q9967; U0003; U0005

== ENCOUNTER 2023-06-09 20:19 | Emergency (ER) | payer OTHER, SELFPAY ==
[2023-06-09 20:20] VITALS: BP 161/84; PULSE 94; RESP 21; TEMP 36.9; O2SAT 96; BMI 20.1
[2023-06-09 20:23] VITALS: BMI 20.1
--- NOTE | 2023-06-09 20:24 | XR_ITS ---
PROCEDURE INFORMATION: Exam: XR Chest Exam date and time: 06/09/2023 8:32 PM Age: 57 years old Clinical indication: Shortness of breath; Additional info: SOA TECHNIQUE: Imaging protocol: Radiologic exam of the chest. Views: 2 views. Total images: 2 COMPARISON: CR XR CHEST PORTABLE 05/25/2023 10:44 AM FINDINGS: Lungs: Prior bibasilar infiltrates have near completely resolved. There is likely minimal residual sequela in the medial right middle lobe. No acute superimposed pulmonary parenchymal process. No pulmonary vascular congestion. Pleural spaces: Left apical pleural thickening. No pleural effusion or pneumothorax. Heart/Mediastinum: Unremarkable. No cardiomegaly. No mediastinal widening or hilar enlargement. Bones/joints: Unremarkable. IMPRESSION: 1. No radiographically acute cardiopulmonary process. 2. Prior bibasilar infiltrates have near completely resolved with minor residual sequela in the medial right middle lobe.
--- NOTE | 2023-06-09 20:24 | ECG_ITS ---
APPROVED REPORT Exam: Resting ECG HR:90 bpm ECG Measurements Heart Rate 90 AXES NJ 152 P 63 QRSd 82 QRS 63 QT 347 T 70 QTc 395 Conclusion SINUS RHYTHM POSSIBLE LEFT ATRIAL ENLARGEMENT [-0.1mV P-WAVE IN V1/V2] BORDERLINE ECG UNCONFIRMED REPORT Electronically signed by : Evaristo Gonzalez MD 06/10/2023 14:02:04
--- NOTE | 2023-06-09 20:50 | PC.NURSE ---
NURSE SALAZAR WAS AT BS PLACING AN CELIA
[2023-06-09 20:57] LABS: ABG Base Excess -2.3 mmol/L (-2.4-2.3); ABG Oxygen Saturation 99 % (90-100); ABG PCO2 40.8 mmhg (35.0-45.0); ABG PH 7.37 mmol/L (7.35-7.45); ABG PO2 141.9 mmhg (80-100); ABG TCO2 24.3 mmhg (23-27); Oxygen 2 %
[2023-06-09 20:58] LABS: Allen's Test y; Source rr
[2023-06-09 21:00] VITALS: BP 153/82; PULSE 88; O2SAT 97
[2023-06-09 21:01] LABS: Alanine Aminotransferase 12 U/L (12-78); Albumin Level 3.5 g/dl (3.5-5.0); Albumin/Globulin Ratio 1.2 (1.1-1.8); Alkaline Phosphatase 74 U/L (38-126); Anion Gap 12.7 mEq/L (5-15); Aspartate Amino Transferase 21 U/L (14-36); Bilirubin,Total 0.3 mg/dl (0.2-1.3); Blood Urea Nitrogen 9 mg/dl (7-17); Calcium 8.6 mg/dl (8.4-10.2); Carbon Dioxide 23 mmol/L (22.0-30.0); Chloride 112 mmol/L (98-107); Creatinine Clearance Estimated 49 mL/min (50-200); Estimated Glomerular Filt Rate 57 ml/min (>60); GFR (African American) 69 ML/MIN (>60); Globulin 2.9 g/dL (1.3-3.2); Glucose 83 mg/dl (74-100); Potassium 3.7 mmoL/L (3.5-5.1); Sodium 144 mmol/L (136-145); Total Protein,Serum 6.4 g/dl (6.3-8.2)
--- NOTE | 2023-06-09 21:04 | HMH.EDSOB ---
Discharge Plan Disposition Patient Disposition: Home, Self-Care Chief Complaint: Shortness of Breath/Dyspnea Prescriptions Prescriptions: No Action omeprazole 40 mg capsule,delayed release(DR/EC) 40 mg PO DAILY minocycline 100 mg capsule 100 mg PO BID Qty: 20 0RF prednisone 20 mg tablet See Rx Instructions .Route .COMPLEX Qty: 15 0RF Rx Instructions: Take 1 tablet twice daily for 5 days, then Take 1 tablet daily for 5 days; clonazepam 0.5 mg tablet 0.5 mg PO QID Qty: 120 1RF gabapentin 600 mg tablet 600 mg PO TID Qty: 90 1RF escitalopram oxalate 20 mg tablet See Rx Instructions .ROUTE .COMPLEX Qty: 30 2RF Dose Instruction: TAKE ONE TABLET BY MOUTH ONCE A DAY Rx Instructions: TAKE ONE TABLET BY MOUTH ONCE A DAY furosemide 20 mg tablet See Rx Instructions .ROUTE .COMPLEX Qty: 30 1RF Dose Instruction: TAKE ONE TABLET BY MOUTH ONCE A DAY Rx Instructions: TAKE ONE TABLET BY MOUTH ONCE A DAY Trelegy Ellipta 100-62.5-25 mcg blister with device See Rx Instructions .ROUTE .COMPLEX Qty: 60 1RF Dose Instruction: INHALE 1 PUFF BY MOUTH ONCE A DAY Rx Instructions: INHALE 1 PUFF BY MOUTH ONCE A DAY albuterol sulfate 90 mcg/actuation HFA aerosol inhaler See Rx Instructions .ROUTE .COMPLEX Qty: 8.5 0RF Dose Instruction: INHALE 2 PUFFS BY MOUTH EVERY 6 HOURS Rx Instructions: INHALE 2 PUFFS BY MOUTH EVERY 6 HOURS tizanidine 4 mg tablet See Rx Instructions .ROUTE .COMPLEX Qty: 90 0RF Dose Instruction: TAKE ONE TABLET BY MOUTH EVERY 8 HOURS NEEDED FOR MUSCLE SPASTICITY Rx Instructions: TAKE ONE TABLET BY MOUTH EVERY 8 HOURS NEEDED FOR MUSCLE SPASTICITY clopidogrel 75 mg tablet 75 mg PO DAILY aspirin 81 mg tablet,delayed release (DR/EC) 81 mg PO DAILY risperidone 2 mg tablet 2 mg PO DAILY estradiol 1 mg tablet 1 mg PO DAILY ferrous sulfate [FeroSul] 325 mg (65 mg iron) tablet 325 mg PO DAILY folic acid 1 mg tablet 1 mg PO DAILY buprenorphine-naloxone 8-2 mg tablet, sublingual 2 tab SUBLINGUAL DAILY rosuvastatin 5 mg tablet 5 mg PO DAILY mirtazapine 7.5 mg tablet 7.5 mg PO DAILY cefdinir 300 mg capsule 300 mg PO BID 10 Days Qty: 20 0RF azithromycin 500 mg tablet 500 mg PO DAILY 3 Days Qty: 3 0RF Referrals Follow up/Referrals: Provider,Referral, MD [Primary Care Provider] - See instructions Clinical Impressions Clinical Impression: Acute exacerbation of chronic obstructive pulmonary disease (COPD), CAD (coronary artery disease), Aortic insufficiency Instructions Patient Instructions: DI for Chronic Obstructive Pulmonary Disease Discharge ED Provider: Miriam (ED)Chuck Resp/SOB HPI General Chief Complaint: Shortness of Breath/Dyspnea Stated Complaint: SOA Time Seen by Provider: 06/09/23 21:00 Mode of Arrival: EMS Source of Information: Patient, EMS and Medical Record Limitations: No Limitations Description of Symptoms (Recalled from ER Triage Doc. by RN): pt c/o increasing SOA, coughing, chest pain with excertion. pt has been recently on 2 rounds of antibodics History of Present Illness pt with acute episode of sob - has hx of copd - has been compliant with meds Complaint: shortness of breath Onset (ago): hour(s) Severity: moderate Consistency/Duration: intermittent Known history of: COPD and congestive heart failure Associated symptoms: denies other symptoms Treatment prior to arrival: bronchodilator Related Data Home oxygen amount: 2 liters Home Medications Medication Instructions Recorded Confirmed aspirin 81 mg tablet,delayed 81 mg PO DAILY Heart health 03/21/23 05/15/23 release buprenorphine 8 mg-naloxone 2 mg 2 tab sublingual DAILY Opioid abuse 03/21/23 05/15/23 sublingual tablet clopidogrel 75 mg tablet 75 mg PO DAILY Blood thinner - CAD 03/21/23 05/15/23 estradiol 1 mg tablet 1 mg PO D
[2023-06-09 21:06] LABS: Basophils % 0.4 % (0.1-2.0); Eosinophils # 0.3 K/mm3 (0.0-0.4); Eosinophils % 4.3 % (0.1-12.0); Hematocrit 41.1 % (37.0-47.0); Hemoglobin 12.7 g/dL (12.2-16.2); Lymphocytes # 1.2 K/mm3 (0.7-4.5); Lymphocytes % 21.2 % (10-50); Mean Corpuscular HGB Conc 30.9 g/dL (31.8-35.4); Mean Corpuscular Hemoglobin 28.8 pg (27.0-31.2); Mean Corpuscular Volume 93.4 fl (81-99); Mean Platelet Volume 8.8 fl (7.4-10.4); Monocytes # 0.2 K/mm3 (0.1-1.0); Monocytes % 3.6 % (1.7-9.3); Neutrophils # 4.1 K/mm3 (1.8-7.8); Neutrophils % 70.4 % (37.0-80.0); Platelet Count 193 K/mm3 (142-424); Red Cell Distribution Width 15.5 % (11.5-17.5); White Blood Count 5.9 K/mm3 (4.8-10.8)
[2023-06-09 21:06] LABS: C-Reactive Protein 3.7 mg/L (0-4)
[2023-06-09 21:16] LABS: Troponin I < 0.01 ng/ml (0.00-0.034)
[2023-06-09 21:20] LABS: Procalcitonin 0.066 ng/mL (0.0-2.0)
[2023-06-09 21:30] VITALS: BP 166/82; PULSE 82; O2SAT 96
[2023-06-09 21:31] LABS: Erythrocyte Sedimentation Rate 58 mm/hr (0-30)
[2023-06-09 22:00] VITALS: BP 130/78; PULSE 82; O2SAT 94
--- NOTE | 2023-06-09 22:14 | PC.NURSE ---
CHECKED ON PT SHE IS ASLEEP IN BED, CALL LIGHT AT BS
[2023-06-09 22:30] VITALS: BP 146/80; PULSE 89; O2SAT 94
[2023-06-09 23:19] LABS: Microscopic, Urine URINE MICROSCOPIC (MICROSCOPIC)
[2023-06-09 23:27] LABS: Appearance,Urine CLEAR (Clear); Bilirubin,Urine Negative (Negative); Blood, Urine Negative (Negative); Color,Urine YELLOW (Yellow); Glucose,Urine (UA) Negative (Negative); Ketones,Urine Negative (Negative); Leukocyte Esterase,Urine Negative (Negative); Nitrate,Urine Negative (Negative); Protein,Urine Negative (Negative); Specific Gravity, Urine <= 1.005 (1.005-1.030); Urobilinogen,Urine 0.2 EU/dl (0.2)
[2023-06-09 23:38] LABS: Troponin I < 0.01 ng/ml (0.00-0.034)
[2023-06-09 23:40] LABS: Squamous Epithelial Cell,Urine Occasional #/hpf (0-5)
[2023-06-09 23:43] VITALS: BP 141/67; PULSE 81; RESP 20; TEMP 36.9; O2SAT 95
== END 2023-06-10 00:12 | disposition home or self-care (01) ==
PROVIDERS: Emergency Provider Emergency Medicine
DX: R07.9 Chest pain, unspecified (principal); J44.1 Chronic obstructive pulmonary disease with (acute) exacerbation; I25.110 Atherosclerotic heart disease of native coronary artery with unstable angina pectoris; F41.9 Anxiety disorder, unspecified; I65.29 Occlusion and stenosis of unspecified carotid artery; F32.A Depression, unspecified; I50.30 Unspecified diastolic (congestive) heart failure; E78.5 Hyperlipidemia, unspecified; F17.210 Nicotine dependence, cigarettes, uncomplicated
CPT/HCPCS: 71046; 80053; 81001; 82803; 84145; 84484; 85025; 85651; 86140; 93005; 96374; 96375; 99285

== ENCOUNTER 2023-06-17 16:25 | Emergency (ER) | payer OTHER, SELFPAY ==
[2023-06-17 16:26] VITALS: BP 172/108; PULSE 105; RESP 20; TEMP 36.8; O2SAT 96; BMI 19.9
--- NOTE | 2023-06-17 16:28 | ECG_ITS ---
APPROVED REPORT Exam: Resting ECG HR:99 bpm ECG Measurements Heart Rate 99 AXES FL 142 P 67 QRSd 85 QRS 44 QT 339 T 64 QTc 395 Conclusion SINUS RHYTHM bi-atrial abnormality ? pulmonary disease ABNORMAL ECG UNCONFIRMED REPORT Electronically signed by : Evaristo Gonzalez MD 06/19/2023 21:25:43
--- NOTE | 2023-06-17 16:43 | XR_ITS ---
PROCEDURE INFORMATION: Exam: XR Chest Exam date and time: 06/17/2023 5:08 PM Age: 57 years old Clinical indication: Dyspnea TECHNIQUE: Imaging protocol: Radiologic exam of the chest. Views: 1 view. COMPARISON: CR XR CHEST 2V 06/09/2023 8:32 PM FINDINGS: Lungs: Minimal bibasilar atelectasis. No pulmonary nodules or focal consolidations. No pulmonary edema. Pleural spaces: Unremarkable. No pleural effusion. No pneumothorax. Heart/Mediastinum: Normal. Bones/joints: No acute abnormality. IMPRESSION: No acute findings.
--- NOTE | 2023-06-17 16:45 | HMH.EDGENADL ---
Discharge Plan Disposition Patient Disposition: Home, Self-Care Prescriptions Prescriptions: New azithromycin 250 mg tablet See Rx Instructions .ROUTE .COMPLEX Qty: 6 0RF Rx Instructions: For 250 mg dose pack: take 500 mg today (day 1), then 250 mg for 4 days (days 2-5) albuterol sulfate 90 mcg/actuation HFA aerosol inhaler 4 inh inhalation Q4H PRN (Reason: shortness of breath or wheezing) Qty: 8.5 0RF Rx Instructions: 4 puffs every 4 hours for 48 hours then as needed for shortness of breath or wheezing following cefdinir 300 mg capsule 300 mg PO BID 10 Days Qty: 20 0RF No Action omeprazole 40 mg capsule,delayed release(DR/EC) 40 mg PO DAILY minocycline 100 mg capsule 100 mg PO BID Qty: 20 0RF prednisone 20 mg tablet See Rx Instructions .Route .COMPLEX Qty: 15 0RF Rx Instructions: Take 1 tablet twice daily for 5 days, then Take 1 tablet daily for 5 days; clonazepam 0.5 mg tablet 0.5 mg PO QID Qty: 120 1RF gabapentin 600 mg tablet 600 mg PO TID Qty: 90 1RF escitalopram oxalate 20 mg tablet See Rx Instructions .ROUTE .COMPLEX Qty: 30 2RF Dose Instruction: TAKE ONE TABLET BY MOUTH ONCE A DAY Rx Instructions: TAKE ONE TABLET BY MOUTH ONCE A DAY albuterol sulfate 90 mcg/actuation HFA aerosol inhaler See Rx Instructions .ROUTE .COMPLEX Qty: 8.5 0RF Dose Instruction: INHALE 2 PUFFS BY MOUTH EVERY 6 HOURS Rx Instructions: INHALE 2 PUFFS BY MOUTH EVERY 6 HOURS Trelegy Ellipta 100-62.5-25 mcg blister with device See Rx Instructions .ROUTE .COMPLEX Qty: 60 0RF Dose Instruction: INHALE 1 PUFF BY MOUTH ONCE A DAY Rx Instructions: INHALE 1 PUFF BY MOUTH ONCE A DAY furosemide 20 mg tablet See Rx Instructions .ROUTE .COMPLEX Qty: 30 0RF Dose Instruction: TAKE ONE TABLET BY MOUTH ONCE A DAY Rx Instructions: TAKE ONE TABLET BY MOUTH ONCE A DAY tizanidine 4 mg tablet See Rx Instructions .ROUTE .COMPLEX Qty: 90 0RF Dose Instruction: TAKE ONE TABLET BY MOUTH EVERY 8 HOURS NEEDED FOR MUSCLE SPASTICITY Rx Instructions: TAKE ONE TABLET BY MOUTH EVERY 8 HOURS NEEDED FOR MUSCLE SPASTICITY estradiol 1 mg tablet See Rx Instructions .ROUTE .COMPLEX Qty: 30 0RF Dose Instruction: TAKE ONE TABLET BY MOUTH ONCE A DAY Rx Instructions: TAKE ONE TABLET BY MOUTH ONCE A DAY clopidogrel 75 mg tablet 75 mg PO DAILY aspirin 81 mg tablet,delayed release (DR/EC) 81 mg PO DAILY risperidone 2 mg tablet 2 mg PO DAILY ferrous sulfate [FeroSul] 325 mg (65 mg iron) tablet 325 mg PO DAILY folic acid 1 mg tablet 1 mg PO DAILY buprenorphine-naloxone 8-2 mg tablet, sublingual 2 tab SUBLINGUAL DAILY rosuvastatin 5 mg tablet 5 mg PO DAILY mirtazapine 7.5 mg tablet 7.5 mg PO DAILY cefdinir 300 mg capsule 300 mg PO BID 10 Days Qty: 20 0RF azithromycin 500 mg tablet 500 mg PO DAILY 3 Days Qty: 3 0RF Referrals Follow up/Referrals: Provider,Referral, MD [Primary Care Provider] - See instructions Clinical Impressions Clinical Impression: Acute exacerbation of chronic obstructive pulmonary disease (COPD), UTI (urinary tract infection) Discharge ED Provider: Radha Bagley General Adult HPI General Chief complaint: Chest Pain Stated complaint: soa Time Seen by Provider: 06/17/23 16:31 History of Present Illness HPI narrative: Patient is a 57-year-old female with a history of coronary artery disease and COPD presenting with shortness of breath and chest pain. States this began yesterday has been ongoing unchanged since that time. No exertional aspect of this. She has an increasing cough wheezing and production of her sputum. States this is similar to COPD exacerbation she has had in the past. Chest pain is substernal with radiation through to the back. She states that she was told she may have an leaking aort
[2023-06-17 16:55] LABS: Basophils # 0.1 K/mm3 (0-0.2); Basophils % 0.7 % (0.1-2.0); Eosinophils # 0.3 K/mm3 (0.0-0.4); Eosinophils % 4.5 % (0.1-12.0); Hematocrit 46.6 % (37.0-47.0); Hemoglobin 14.9 g/dL (12.2-16.2); Lymphocytes # 2.6 K/mm3 (0.7-4.5); Lymphocytes % 36.2 % (10-50); Mean Corpuscular Hemoglobin 29.2 pg (27.0-31.2); Mean Corpuscular Volume 91.1 fl (81-99); Mean Platelet Volume 8.6 fl (7.4-10.4); Monocytes # 0.5 K/mm3 (0.1-1.0); Monocytes % 7.3 % (1.7-9.3); Neutrophils # 3.7 K/mm3 (1.8-7.8); Neutrophils % 51.3 % (37.0-80.0); Platelet Count 239 K/mm3 (142-424); Red Blood Count 5.11 M/mm3 (4.20-5.40); Red Cell Distribution Width 15.1 % (11.5-17.5); White Blood Count 7.2 K/mm3 (4.8-10.8)
[2023-06-17 17:00] VITALS: BP 141/91; PULSE 109; RESP 20; O2SAT 96
[2023-06-17 17:06] LABS: Alanine Aminotransferase 14 U/L (12-78); Albumin/Globulin Ratio 1.1 (1.1-1.8); Alkaline Phosphatase 112 U/L (38-126); Anion Gap 8.2 mEq/L (5-15); Aspartate Amino Transferase 23 U/L (14-36); Bilirubin,Total 0.3 mg/dl (0.2-1.3); Blood Urea Nitrogen 8 mg/dl (7-17); Calcium 9.3 mg/dl (8.4-10.2); Carbon Dioxide 27 mmol/L (22.0-30.0); Chloride 108 mmol/L (98-107); Creatinine Clearance Estimated 49 mL/min (50-200); Estimated Glomerular Filt Rate 57 ml/min (>60); GFR (African American) 69 ML/MIN (>60); Globulin 3.7 g/dL (1.3-3.2); Glucose 104 mg/dl (74-100); Potassium 3.2 mmoL/L (3.5-5.1); Sodium 140 mmol/L (136-145); Total Protein,Serum 7.7 g/dl (6.3-8.2)
[2023-06-17 17:18] LABS: NT Pro Brain Natriuretic Pep. 303 pg/mL (0-125)
[2023-06-17 17:20] LABS: Troponin I < 0.01 ng/ml (0.00-0.034)
[2023-06-17 17:30] VITALS: BP 170/107; PULSE 120; RESP 20; O2SAT 100
--- NOTE | 2023-06-17 17:35 | PC.NURSE ---
pt ambultated to BR with no O2 o2 sat dropped to 96% in no acute distress
[2023-06-17 17:53] LABS: Microscopic, Urine URINE MICROSCOPIC (MICROSCOPIC)
[2023-06-17 17:57] LABS: Appearance,Urine CLEAR (Clear); Bilirubin,Urine Negative (Negative); Blood, Urine Negative (Negative); Color,Urine YELLOW (Yellow); Glucose,Urine (UA) Negative (Negative); Ketones,Urine Negative (Negative); Leukocyte Esterase,Urine 1+ (Negative); Nitrate,Urine Negative (Negative); Protein,Urine Negative (Negative); Specific Gravity, Urine <= 1.005 (1.005-1.030); Urobilinogen,Urine 0.2 EU/dl (0.2)
[2023-06-17 18:00] VITALS: BP 184/112; PULSE 106; RESP 22; O2SAT 100
[2023-06-17 18:04] LABS: Bacteria,Urine Trace /lpf
[2023-06-17 18:30] VITALS: BP 179/105; PULSE 112; RESP 18; O2SAT 99
[2023-06-17 18:50] VITALS: BP 166/92; PULSE 108; RESP 18; TEMP 36.7; O2SAT 96
== END 2023-06-17 18:52 | disposition home or self-care (01) ==
PROVIDERS: Emergency Provider Student in an Organized Health Care Education/Training Program
DX: R07.9 Chest pain, unspecified (principal); J44.1 Chronic obstructive pulmonary disease with (acute) exacerbation; N39.0 Urinary tract infection, site not specified; F41.9 Anxiety disorder, unspecified; I25.110 Atherosclerotic heart disease of native coronary artery with unstable angina pectoris; I50.30 Unspecified diastolic (congestive) heart failure; E78.5 Hyperlipidemia, unspecified; F17.210 Nicotine dependence, cigarettes, uncomplicated
CPT/HCPCS: 71045; 80053; 81001; 83880; 84484; 85025; 87086; 93005; 96361; 96374; 99285; J3475

== ENCOUNTER 2023-07-04 11:59 | Emergency (ER) | payer OTHER, SELFPAY ==
[2023-07-04] VITALS (8 sets, daily range): BP systolic 88–110; BP diastolic 46–65; PULSE 78–90; RESP 16–18; TEMP 36.7–36.8; O2SAT 95–100; BMI 20.1
--- NOTE | 2023-07-04 11:50 | ECG_ITS ---
APPROVED REPORT Exam: Resting ECG HR:89 bpm ECG Measurements Heart Rate 89 AXES VT 140 P 61 QRSd 91 QRS 54 QT 378 T 72 QTc 424 Conclusion SINUS RHYTHM Atrial abnormality BORDERLINE ECG UNCONFIRMED REPORT Electronically signed by : Evaristo Gonzalez MD 07/04/2023 17:37:07
--- NOTE | 2023-07-04 12:04 | XR_ITS ---
FINAL REPORT CLINICAL HISTORY: chest pain, soa COMPARISON: 06/17/2023 FINDINGS: TWO-VIEW CHEST The heart size is normal. The mediastinum is normal. There is linear atelectasis or scar in the right lung base. There is no pneumothorax. IMPRESSION: Right lung base atelectasis versus scar. Reviewed, Interpreted and Dictated by Edward Espinoza III, MD Transcribed by Silvia Alford Authenticated and [facility]
--- NOTE | 2023-07-04 12:19 | PC.NURSE ---
pt going to radiology.
--- NOTE | 2023-07-04 12:40 | PC.NURSE ---
lab at bedside to draw labs.
--- NOTE | 2023-07-04 12:41 | HMH.EDGENADL ---
Discharge Plan Disposition Patient Disposition: Home, Self-Care Prescriptions Prescriptions: New nitrofurantoin monohyd/m-cryst [Macrobid] 100 mg capsule 100 mg PO BID 5 Days Qty: 10 0RF Rx Instructions: must administer with a meal/food No Action omeprazole 40 mg capsule,delayed release(DR/EC) 40 mg PO DAILY minocycline 100 mg capsule 100 mg PO BID Qty: 20 0RF clonazepam 0.5 mg tablet 0.5 mg PO QID Qty: 120 1RF gabapentin 600 mg tablet 600 mg PO TID Qty: 90 1RF lisinopril 10 mg tablet 10 mg PO DAILY Qty: 30 0RF escitalopram oxalate 20 mg tablet See Rx Instructions .ROUTE .COMPLEX Qty: 30 2RF Dose Instruction: TAKE ONE TABLET BY MOUTH ONCE A DAY Rx Instructions: TAKE ONE TABLET BY MOUTH ONCE A DAY albuterol sulfate 90 mcg/actuation HFA aerosol inhaler See Rx Instructions .ROUTE .COMPLEX Qty: 8.5 0RF Dose Instruction: INHALE 2 PUFFS BY MOUTH EVERY 6 HOURS Rx Instructions: INHALE 2 PUFFS BY MOUTH EVERY 6 HOURS Trelegy Ellipta 100-62.5-25 mcg blister with device See Rx Instructions .ROUTE .COMPLEX Qty: 60 0RF Dose Instruction: INHALE 1 PUFF BY MOUTH ONCE A DAY Rx Instructions: INHALE 1 PUFF BY MOUTH ONCE A DAY furosemide 20 mg tablet See Rx Instructions .ROUTE .COMPLEX Qty: 30 0RF Dose Instruction: TAKE ONE TABLET BY MOUTH ONCE A DAY Rx Instructions: TAKE ONE TABLET BY MOUTH ONCE A DAY tizanidine 4 mg tablet See Rx Instructions .ROUTE .COMPLEX Qty: 90 0RF Dose Instruction: TAKE ONE TABLET BY MOUTH EVERY 8 HOURS NEEDED FOR MUSCLE SPASTICITY Rx Instructions: TAKE ONE TABLET BY MOUTH EVERY 8 HOURS NEEDED FOR MUSCLE SPASTICITY estradiol 1 mg tablet See Rx Instructions .ROUTE .COMPLEX Qty: 30 0RF Dose Instruction: TAKE ONE TABLET BY MOUTH ONCE A DAY Rx Instructions: TAKE ONE TABLET BY MOUTH ONCE A DAY fluconazole [Diflucan] 150 mg tablet 150 mg PO DAILY 3 Days Qty: 3 0RF ondansetron 4 mg tablet,disintegrating 4 mg PO Q8H PRN (Reason: nausea and vomiting) Qty: 12 0RF benzonatate 200 mg capsule 200 mg PO TID PRN (Reason: cough) azithromycin 250 mg tablet See Rx Instructions .ROUTE .COMPLEX Qty: 6 0RF Rx Instructions: For 250 mg dose pack: take 500 mg today (day 1), then 250 mg for 4 days (days 2-5) albuterol sulfate 90 mcg/actuation HFA aerosol inhaler 4 inh inhalation Q4H PRN (Reason: shortness of breath or wheezing) Qty: 8.5 0RF Rx Instructions: 4 puffs every 4 hours for 48 hours then as needed for shortness of breath or wheezing following cefdinir 300 mg capsule 300 mg PO BID 10 Days Qty: 20 0RF clopidogrel 75 mg tablet 75 mg PO DAILY aspirin 81 mg tablet,delayed release (DR/EC) 81 mg PO DAILY risperidone 2 mg tablet 2 mg PO DAILY ferrous sulfate [FeroSul] 325 mg (65 mg iron) tablet 325 mg PO DAILY folic acid 1 mg tablet 1 mg PO DAILY buprenorphine-naloxone 8-2 mg tablet, sublingual 2 tab SUBLINGUAL DAILY rosuvastatin 5 mg tablet 5 mg PO DAILY mirtazapine 7.5 mg tablet 7.5 mg PO DAILY Referrals Follow up/Referrals: Provider,Referral, MD [Referring] - See instructions Activity Restrictions/Add. Instructions Additional Instructions/Restrictions: Take Macrobid twice daily for 5 days. Call your family doctor to establish care for this visit to the emergency department and schedule follow-up within 48 hours to ensure improvement. If you have any worsening of your condition or any other concerning signs or symptoms, return to the emergency department or your primary care doctor for further evaluation. Clinical Impressions Clinical Impression: UTI (urinary tract infection) Discharge ED Provider: Arik Romero General Adult HPI General Chief complaint: Chest Pain Stated complaint: Chest Pain Time Seen by Provider: 07/04/23 12:05 Mode of Arrival: Ambula
[2023-07-04 12:45] LABS: Basophils # 0.1 K/mm3 (0-0.2); Basophils % 0.7 % (0.1-2.0); Eosinophils # 0.2 K/mm3 (0.0-0.4); Eosinophils % 2.3 % (0.1-12.0); Hemoglobin 13.5 g/dL (12.2-16.2); Lymphocytes # 2.3 K/mm3 (0.7-4.5); Lymphocytes % 34.8 % (10-50); Mean Corpuscular HGB Conc 31.4 g/dL (31.8-35.4); Mean Corpuscular Hemoglobin 28.9 pg (27.0-31.2); Mean Corpuscular Volume 92.1 fl (81-99); Mean Platelet Volume 8.4 fl (7.4-10.4); Monocytes # 0.6 K/mm3 (0.1-1.0); Monocytes % 8.9 % (1.7-9.3); Neutrophils # 3.5 K/mm3 (1.8-7.8); Neutrophils % 53.3 % (37.0-80.0); Platelet Count 237 K/mm3 (142-424); Red Blood Count 4.67 M/mm3 (4.20-5.40); Red Cell Distribution Width 14.6 % (11.5-17.5); White Blood Count 6.5 K/mm3 (4.8-10.8)
[2023-07-04 12:58] LABS: Alanine Aminotransferase 11 U/L (12-78); Alkaline Phosphatase 97 U/L (38-126); Anion Gap 11.3 mEq/L (5-15); Aspartate Amino Transferase 31 U/L (14-36); Bilirubin,Indirect 0.2 mg/dL (0.0-0.9); Bilirubin,Total 0.2 mg/dl (0.2-1.3); Bilirubin,Unconjugated 0.3 mg/dL (0.0-1.1); Blood Urea Nitrogen 4 mg/dl (7-17); Carbon Dioxide 29 mmol/L (22.0-30.0); Chloride 102 mmol/L (98-107); Creatinine Clearance Estimated 29 mL/min (50-200); Estimated Glomerular Filt Rate 31 ml/min (>60); GFR (African American) 38 ML/MIN (>60); Glucose 87 mg/dl (74-100); Lipase 44 U/L (23-300); Potassium 3.3 mmoL/L (3.5-5.1); Sodium 139 mmol/L (136-145); Total Protein,Serum 7.6 g/dl (6.3-8.2)
[2023-07-04 13:16] LABS: Troponin I < 0.01 ng/ml (0.00-0.034)
[2023-07-04 13:59] LABS: Microscopic, Urine URINE MICROSCOPIC (MICROSCOPIC)
[2023-07-04 14:03] LABS: Appearance,Urine CLEAR (Clear); Bilirubin,Urine Negative (Negative); Blood, Urine Negative (Negative); Color,Urine YELLOW (Yellow); Glucose,Urine (UA) Negative (Negative); Ketones,Urine Negative (Negative); Leukocyte Esterase,Urine TRACE (Negative); Nitrate,Urine Negative (Negative); Protein,Urine Negative (Negative); Urobilinogen,Urine 0.2 EU/dl (0.2)
[2023-07-04 14:13] LABS: Bacteria,Urine 1+ /lpf; WBC,Urine Occasional #/hpf (0-3)
== END 2023-07-04 14:59 | disposition home or self-care (01) ==
PROVIDERS: Emergency Provider Emergency Medicine; PCP Emergency Medicine
DX: R07.9 Chest pain, unspecified (principal); N39.0 Urinary tract infection, site not specified; I11.0 Hypertensive heart disease with heart failure; E78.5 Hyperlipidemia, unspecified; J44.9 Chronic obstructive pulmonary disease, unspecified; F41.9 Anxiety disorder, unspecified; I25.110 Atherosclerotic heart disease of native coronary artery with unstable angina pectoris; I50.30 Unspecified diastolic (congestive) heart failure; F17.210 Nicotine dependence, cigarettes, uncomplicated
CPT/HCPCS: 36415; 71046; 80048; 80076; 81001; 83690; 84484; 85025; 93005; 96360; 99285

== ENCOUNTER 2023-07-07 18:24 | Observation (INO) | payer OTHER, SELFPAY ==
[2023-07-07 18:25] VITALS: BP 111/85; PULSE 96; RESP 18; TEMP 36.4; O2SAT 94; BMI 19.9
--- NOTE | 2023-07-07 18:26 | ECG_ITS ---
APPROVED REPORT Exam: Resting ECG HR:94 bpm ECG Measurements Heart Rate 94 AXES RI 143 P 68 QRSd 97 QRS 75 QT 364 T 71 QTc 416 Conclusion SINUS RHYTHM bi-atrial abnormality NONSPECIFIC T-WAVE ABNORMALITY ABNORMAL ECG UNCONFIRMED REPORT Electronically signed by : Evaristo Gonzalez MD 07/09/2023 20:54:17
[2023-07-07 18:31] VITALS: PULSE 96
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
--- NOTE | 2023-07-07 18:38 | XR_ITS ---
PROCEDURE INFORMATION: Exam: XR Chest Exam date and time: 07/07/2023 6:43 PM Age: 57 years old Clinical indication: Pain; Chest pressure; Additional info: Epigastric pain, cp TECHNIQUE: Imaging protocol: Radiologic exam of the chest. Views: 1 view. COMPARISON: CR XR CHEST 2V 07/04/2023 12:09 PM FINDINGS: Lungs: Unremarkable. No consolidation. Pleural spaces: Unremarkable. No pleural effusion. No pneumothorax. Heart/Mediastinum: Unremarkable. No cardiomegaly. Bones/joints: Unremarkable. IMPRESSION: No acute findings.
--- NOTE | 2023-07-07 18:40 | PC.NURSE ---
ER AT BEDSIDE
[2023-07-07 18:43] LABS: Basophils # 0.1 K/mm3 (0-0.2); Basophils % 0.9 % (0.1-2.0); Eosinophils # 0.3 K/mm3 (0.0-0.4); Eosinophils % 4.1 % (0.1-12.0); Hematocrit 47.1 % (37.0-47.0); Hemoglobin 14.6 g/dL (12.2-16.2); Lymphocytes # 2.2 K/mm3 (0.7-4.5); Lymphocytes % 34.4 % (10-50); Mean Corpuscular HGB Conc 31.1 g/dL (31.8-35.4); Mean Corpuscular Hemoglobin 28.8 pg (27.0-31.2); Mean Corpuscular Volume 92.7 fl (81-99); Mean Platelet Volume 8.7 fl (7.4-10.4); Monocytes # 0.6 K/mm3 (0.1-1.0); Monocytes % 8.6 % (1.7-9.3); Neutrophils # 3.3 K/mm3 (1.8-7.8); Neutrophils % 52.1 % (37.0-80.0); Platelet Count 261 K/mm3 (142-424); Red Blood Count 5.08 M/mm3 (4.20-5.40); Red Cell Distribution Width 14.2 % (11.5-17.5); White Blood Count 6.4 K/mm3 (4.8-10.8)
--- NOTE | 2023-07-07 18:45 | PC.NURSE ---
PORTABLE XRAY AT BEDSIDE
--- NOTE | 2023-07-07 18:47 | XR_ITS ---
PROCEDURE INFORMATION: Exam: XR Left Wrist Exam date and time: 07/07/2023 6:45 PM Age: 57 years old Clinical indication: Pain; Wrist; Left; Additional info: Left wrist pain TECHNIQUE: Imaging protocol: Radiologic exam of the left wrist. Views: 3 or more views. COMPARISON: CR XR WRIST LT MIN 3V 05/27/2020 2:11 PM FINDINGS: Bones/joints: Normal. Soft tissues: Normal. IMPRESSION: No acute findings.
--- NOTE | 2023-07-07 18:47 | XR_ITS ---
PROCEDURE INFORMATION: Exam: XR Left Hand Exam date and time: 07/07/2023 6:45 PM Age: 57 years old Clinical indication: Pain; Hand; Left; Additional info: Left hand pain TECHNIQUE: Imaging protocol: Radiologic exam of the left hand. Views: 3 or more views. COMPARISON: DX [id number] XR hand LT min 3V 12/03/2018 9:08 AM FINDINGS: Bones/joints: Normal. Soft tissues: Normal. IMPRESSION: No acute findings.
[2023-07-07 18:55] LABS: Alanine Aminotransferase 11 U/L (12-78); Albumin Level 4.4 g/dl (3.5-5.0); Alkaline Phosphatase 108 U/L (38-126); Anion Gap 15.5 mEq/L (5-15); Aspartate Amino Transferase 27 U/L (14-36); Bilirubin,Total 0.4 mg/dl (0.2-1.3); Blood Urea Nitrogen 8 mg/dl (7-17); Calcium 9.6 mg/dl (8.4-10.2); Carbon Dioxide 25 mmol/L (22.0-30.0); Chloride 101 mmol/L (98-107); Creatinine Clearance Estimated 23 mL/min (50-200); Estimated Glomerular Filt Rate 24 ml/min (>60); GFR (African American) 29 ML/MIN (>60); Globulin 4.5 g/dL (1.3-3.2); Glucose 90 mg/dl (74-100); Lipase 64 U/L (23-300); Potassium 3.5 mmoL/L (3.5-5.1); Sodium 138 mmol/L (136-145); Total Protein,Serum 8.9 g/dl (6.3-8.2)
--- NOTE | 2023-07-07 19:05 | PC.NURSE ---
pt states zofran hasn't helped with nausea and now she has L groin pain. ER aware.
[2023-07-07 19:07] LABS: Troponin I < 0.01 ng/ml (0.00-0.034)
--- NOTE | 2023-07-07 20:24 | PC.NURSE ---
OBSERVATION TO 214 TO SERVICE OF HOSPITALIST WITH DX OF HUGO.
--- NOTE | 2023-07-07 20:28 | PC.NURSE ---
on phone with hospitalist. house director notified of admission
[2023-07-07 20:38] LABS: Microscopic, Urine URINE MICROSCOPIC (MICROSCOPIC)
[2023-07-07 20:50] LABS: Appearance,Urine CLEAR (Clear); Bilirubin,Urine Negative (Negative); Blood, Urine Negative (Negative); Color,Urine YELLOW (Yellow); Glucose,Urine (UA) Negative (Negative); Ketones,Urine Negative (Negative); Leukocyte Esterase,Urine TRACE (Negative); Nitrate,Urine Negative (Negative); Protein,Urine Negative (Negative); Specific Gravity, Urine <= 1.005 (1.005-1.030); Urobilinogen,Urine 0.2 EU/dl (0.2)
[2023-07-07 21:08] LABS: Bacteria,Urine Trace /lpf
--- NOTE | 2023-07-07 21:20 | PC.NURSE ---
pt arrived to the floor via wheelchair @[id number]
[2023-07-07 21:34] VITALS: BP 137/72; PULSE 81; RESP 16; TEMP 36.6; O2SAT 94; BMI 44.4
[2023-07-07 22:00] VITALS: BP 137/72; PULSE 79; RESP 18; TEMP 36.6; O2SAT 97
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
[2023-07-07 22:38] LABS: Amphetamine/Metha Screen,Urine Negative ng/ml (<1000); Barbiturates Screen,Urine Negative ng/ml (<200); Benzodiazepines Screen,Urine Positive ng/ml (<200); Cannabinoid Screen,Urine Positive ng/ml (<50); Cocaine Screen,Urine Negative ng/ml (<300); Methadone Screen,Urine Negative ng/ml (<300); Opiate Screen,Urine Negative ng/ml (<300); Phencyclidine Screen,Urine Negative ng/ml (<25)
--- NOTE | 2023-07-07 23:13 | PC.NURSE ---
LAB STAFF NOTIFIED THIS RN OF BEING UNABLE TO OBTAIN BLOOD SPEC FOR TROPONIN LEVEL. THIS RN, AND CHARGE NURSE Marian MUSTAFA RN ATTEMPTED TO OBTAIN BLOOD SPECIMEN WITHOUT SUCCESS. AUGER MACHINE OFFBEARER NOTIFIED.
[2023-07-07 23:24] LABS: Hemoglobin A1C 5.4 % (4.0-6.0)
[2023-07-07 23:28] VITALS: PULSE 71; PULSE 72
[2023-07-07 23:51] LABS: Troponin I < 0.01 ng/ml (0.00-0.034)
[2023-07-08] VITALS (8 sets, daily range): BP systolic 101–131; BP diastolic 54–68; PULSE 76–97; RESP 16–18; TEMP 36.6–37; O2SAT 90–95; BMI 20.1
[2023-07-08 03:38] LABS: Troponin I < 0.01 ng/ml (0.00-0.034)
--- NOTE | 2023-07-08 04:50 | PC.NURSE ---
Pt has had no complaints this shift. rested well. Pt ambulates to BR with standby assist, tolerates well. Pt refused meds to beds program upon admission.
[2023-07-08 06:38] LABS: Basophils % 0.6 % (0.1-2.0); Eosinophils # 0.2 K/mm3 (0.0-0.4); Eosinophils % 3.5 % (0.1-12.0); Hematocrit 38.6 % (37.0-47.0); Lymphocytes % 40.1 % (10-50); Mean Corpuscular HGB Conc 31.2 g/dL (31.8-35.4); Mean Corpuscular Hemoglobin 28.6 pg (27.0-31.2); Mean Corpuscular Volume 91.5 fl (81-99); Mean Platelet Volume 8.6 fl (7.4-10.4); Monocytes # 0.5 K/mm3 (0.1-1.0); Monocytes % 9.9 % (1.7-9.3); Neutrophils # 2.3 K/mm3 (1.8-7.8); Neutrophils % 45.8 % (37.0-80.0); Platelet Count 241 K/mm3 (142-424); Red Blood Count 4.22 M/mm3 (4.20-5.40); Red Cell Distribution Width 14.3 % (11.5-17.5)
[2023-07-08 06:44] LABS: Anion Gap 8.1 mEq/L (5-15); Blood Urea Nitrogen 6 mg/dl (7-17); Calcium 8.5 mg/dl (8.4-10.2); Carbon Dioxide 26 mmol/L (22.0-30.0); Chloride 109 mmol/L (98-107); Creatinine Clearance Estimated 27 mL/min (50-200); Estimated Glomerular Filt Rate 29 ml/min (>60); GFR (African American) 35 ML/MIN (>60); Glucose 84 mg/dl (74-100); Potassium 3.1 mmoL/L (3.5-5.1); Sodium 140 mmol/L (136-145)
[2023-07-08 06:48] LABS: Hemoglobin 12.1 g/dL (12.2-16.2)
--- NOTE | 2023-07-08 10:01 | PC.NURSE ---
COURTESY TECH NOTE; ROUNDED ON PT 0840, DRINK BROUGHT AT PT REQUEST, DENIED NEED FOR ASSISTANCE WITH RESTROOM, AND NEED TO REPOSITION IN BED. CALL LIGHT WITHIN REACH, NO FURTHER REQUESTS AT THIS TIME EDUARDA HONEYCUTT
--- NOTE | 2023-07-08 10:56 | HMH.PHAINT1 ---
Pharmacy Intervention Comments: Home medications were verified by the patient. -Rodolfo Sim, PharmD student
--- NOTE | 2023-07-08 11:30 | PC.NURSE ---
THIS NURSE NOTIFIED DR SPENCER OF PT WANTING SOME HOME MEDICATIONS RESTARTED. NO NEW ORDERS.
--- NOTE | 2023-07-08 12:30 | PC.NURSE ---
THIS NURSE TO THE ROOM. PT IS VERY FRUSTRATED AND STATES THIS IS THE WORST EXPERIENCE SHE HAS EVER HAD AT THIS HOSPITAL. SHE STATES WE ARE NOT GIVING HER HER MEDICATION AND THE FOOD IS HORRIBLE. THIS NURSE EXPLAINED TO PT SHE RECEIVED HER MEDICATIONS THIS AM. SHE STATES SHE DIDN'T RECEIVE HER SUBOXONE, GABAPENTIN, OR CLONAPIN. NOTIFIED DR SPENCER NO NEW ORDERS. THIS NURSE OFFERED TO CALL [facility] FOR MORE FOOD AND SHE STATED NO. PT RESTING IN BED. CALL LIGHT WITHIN REACH.
--- NOTE | 2023-07-08 13:45 | PC.NURSE ---
ANTON BARBER AT BEDSIDE TALKING TO PT.
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
--- NOTE | 2023-07-08 17:41 | PC.NURSE ---
A&OX4. PT ON RA TOLERATING WELL. WEARS 2L NC OCCASIONALLY WHICH IS HER BASELINE AT HOME. RESPIRATIONS REGULAR AND UNLABORED. SCATTERED WHEEZES NOTED. HEART RATE REGULAR. +2 PULSES NOTED THROUGHOUT. HAND MASTER LAY OUT SPECIALIST EQUAL. ACTIVE BOWEL SOUNDS HEARD IN ALL 4 QUADRANTS. SOFT AND NONTENDER ABDOMEN. NO EDEMA NOTED. LR INFUSING AT 100ML/HR. BED IN LOWEST POSITION. CALL LIGHT WITHIN REACH. VSS. BED ALARM IN PLACE FOR SAFETY. HAS BEEN ASLEEP THIS AFTERNOON AFTER RECEIVING SUBOXONE PER JAN.
--- NOTE | 2023-07-08 23:32 | EXP.PN ---
Subjective *Date: 07/08/23 *Time: 10:00 Interval history: No acute events overnight She has dysuria She's much more alert today Exam Data for Last 24 hours Vital signs and Labs for Last 24 Hours: Temp Pulse Resp BP Pulse Ox O2 Del Method 97.9 F 82 18 125/68 95 Room Air 07/08/23 20:00 07/08/23 20:00 07/08/23 20:00 07/08/23 20:00 07/08/23 20:00 07/08/23 23:00 Laboratory Results - last 24 hr 07/07/23 23:20: Troponin I < 0.01 07/08/23 02:30: Troponin I < 0.01 07/08/23 06:11: WBC 5.0, RBC 4.22, Hgb 12.1 L D, Hct 38.6, MCV 91.5, MCH 28.6, MCHC 31.2 L, RDW 14.3, Plt Count 241, MPV 8.6, Neut % (Auto) 45.8, Lymph % (Auto) 40.1, Trigg % (Auto) 9.9 H, Eos % (Auto) 3.5, Baso % (Auto) 0.6, Neut # (Auto) 2.3, Lymph # (Auto) 2.0, Trigg # (Auto) 0.5, Eos # (Auto) 0.2, Baso # (Auto) 0.0, Sodium 140, Potassium 3.1 L, Chloride 109 H, Carbon Dioxide 26, Anion Gap 8.1, BUN 6 L, Creatinine 1.80 H, Estimated Creat Clear 27, Estimated GFR 29 L, Est GFR ( Amer) 35 L D, Glucose 84, Calcium 8.5 I & O for Last 24 hours: Intake & Output 07/05/23 07/06/23 07/07/23 07/08/23 23:59 23:59 23:59 23:59 Intake Total 1670 / 1670 Output Total 675 / 675 Balance 995 / 995 Weight 109.5 kg 49.668 kg Constitutional Constitutional: no acute distress *Routine HEENT Exam Head: Present normocephalic Eye: Present EOMI and PERRL ENT: Present mucous membranes moist *Routine Neck Exam Neck: Present supple; Absent lymphadenopathy *Routine Respiratory Exam Respiratory: Present CTA bilaterally *Routine Cardiovascular Exam Cardiovascular: Present RRR *Routine Abdominal Exam Abdominal: Present soft and normoactive bowel sounds; Absent tenderness *Routine Extremities Exam Extremities: Absent cyanosis, clubbing or edema *Routine Skin Exam Skin: Present warm; Absent rash *Routine Neurological Exam Neurological: Present alert and oriented X3 Assessment and Plan *Assessment and plan (1) HUGO (acute kidney injury): Status: Acute Category: Medical Code(s): N17.9 - Acute kidney failure, unspecified (2) UTI (urinary tract infection): Status: Acute Category: Medical Code(s): N39.0 - Urinary tract infection, site not specified (3) Hypertension: Status: Chronic Qualifiers: Hypertension type: essential hypertension Qualified Code(s): I10 - Essential (primary) hypertension Category: Medical Code(s): I10 - Essential (primary) hypertension (4) CAD (coronary artery disease): Status: Acute Category: Medical Code(s): I25.10 - Atherosclerotic heart disease of [place] coronary artery without angina pectoris (5) COPD (chronic obstructive pulmonary disease): Status: Acute Category: Medical Code(s): J44.9 - Chronic obstructive pulmonary disease, unspecified (6) Hyperlipidemia: Status: Acute Category: Medical Code(s): E78.5 - Hyperlipidemia, unspecified (7) Iron deficiency anemia: Status: Acute Category: Medical Code(s): D50.9 - Iron deficiency anemia, unspecified (8) Tobacco use: Status: Acute Category: Social Hx Code(s): Z72.0 - Tobacco use Plan #UTI, acute #HUGO #copd #pad #htn #hld #hep c Continue Rocephin. Follow urine culture Continue IV fluids Anticipate d/c to home tomorrow. Full code Regular diet DVT ppx: heparin subcu
[2023-07-09 04:00] VITALS: BP 105/54; PULSE 93; RESP 18; TEMP 36.8; O2SAT 94; BMI 21.2
[2023-07-09 06:10] VITALS: PULSE 77
[2023-07-09 06:36] LABS: Blood Urea Nitrogen 5 mg/dl (7-17); Calcium 8.2 mg/dl (8.4-10.2); Carbon Dioxide 24 mmol/L (22.0-30.0); Chloride 110 mmol/L (98-107); Creatinine Clearance Estimated 32 mL/min (50-200); Estimated Glomerular Filt Rate 33 ml/min (>60); GFR (African American) 40 ML/MIN (>60); Glucose 79 mg/dl (74-100); Magnesium 1.4 mg/dl (1.6-2.3); Sodium 141 mmol/L (136-145)
[2023-07-09 08:00] VITALS: BP 106/59; PULSE 86; RESP 16; TEMP 36.8; O2SAT 91
[2023-07-09 11:07] VITALS: PULSE 80; PULSE 82
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
--- NOTE | 2023-07-09 12:59 | HMH.PHAINT1 ---
Pharmacy Intervention Comments: DISCHARGE MEDICATION COUNSELING PROVIDED. DISCUSSED STOPPING THE LISINOPRIL (PATIENT ASKED WHY DUE TO GOOD BP CONTROL AND I ADVISED IT WAS DUE TO HER KIDNEY INJURY AND THAT SHE SHOULD FOLLOW UP WITH HER PRIMARY DR PINO REGARDING RESTART OR NEW MEDICATION) AND THE FOLLOWING NEW MEDICATIONS: -LEVAQUIN (ANTIBIOTIC, EVERY 48 HOURS, TAKE WITH FOOD, N/V/D POSSIBLE) -DIFLUCAN (FOR YEAST INFECTION, ONLY TAKE IF INFECTION DEVELOPS AFTER LEVAQUIN COURSE COMPLETE) PATIENT ASKED ABOUT STOPPAGE OF THE LISINOPRIL MENTIONED ABOVE BUT NO FURTHER QUESTIONS AFTER THAT.
--- NOTE | 2023-07-10 13:02 | CARE MANAGER ---
Left message for post-discharge phone interview.
== END 2023-07-09 14:12 | disposition home or self-care (01) ==
LOC: ER 20:33 → 2ND 22:26
PROVIDERS: Nurse Practitioner Critical Care Medicine; Admitting Provider Internal Medicine; Emergency Provider Emergency Medicine; PCP Emergency Medicine; Visit Provider Internal Medicine
DX: N17.9 Acute kidney failure, unspecified (principal); N39.0 Urinary tract infection, site not specified; I10 Essential (primary) hypertension; I25.10 Atherosclerotic heart disease of native coronary artery without angina pectoris; J44.9 Chronic obstructive pulmonary disease, unspecified; E78.5 Hyperlipidemia, unspecified; D50.9 Iron deficiency anemia, unspecified; F17.210 Nicotine dependence, cigarettes, uncomplicated; Z79.899 Other long term (current) drug therapy
CPT/HCPCS: 36415; 71045; 73110; 73130; 80048; 80053; 80305; 81001; 83036; 83690; 83735; 84484; 85025; 87086; 93005; 94640; 99285; G0378; J0574; J0696; J2405; J3475

== ENCOUNTER 2023-07-23 11:56 | Emergency (ER) | payer OTHER, SELFPAY ==
[2023-07-23 11:58] VITALS: BP 135/78; PULSE 99; RESP 18; TEMP 36.6; O2SAT 95; BMI 19.7
[2023-07-23 12:30] VITALS: PULSE 94; O2SAT 90
--- NOTE | 2023-07-23 12:31 | CT_ITS ---
PROCEDURE INFORMATION: Exam: CT Head Without Contrast Exam date and time: 07/23/2023 12:50 PM Age: 57 years old Clinical indication: Injury or trauma; Fall; Blunt trauma (contusions or hematomas); Additional info: Fall, head/neck injury TECHNIQUE: Imaging protocol: Computed tomography of the head without contrast. Radiation optimization: All CT scans at this facility use at least one of these dose optimization techniques: automated exposure control; mA and/or kV adjustment per patient size (includes targeted exams where dose is matched to clinical indication); or iterative reconstruction. REPORTING DATA: Count of CT and Cardiac NM exams in prior 12 months: This patient has received 2 known CTs and 0 known cardiac nuclear medicine studies in the 12 months prior to the current study. COMPARISON: CT SOFT TISSUE NECK W CON 06/21/2021 2:06 PM FINDINGS: Brain: Normal. No hemorrhage. No space-occupying masses or areas of mass effect. No edema or midline shift. Cortical sulci are unremarkable for age. Cerebral ventricles: No ventriculomegaly. Paranasal sinuses: Visualized sinuses are unremarkable. No fluid levels. Mastoid air cells: Visualized mastoid air cells are well aerated. Bones/joints: Unremarkable. Soft tissues: Unremarkable. IMPRESSION: Negative CT examination of the head. No acute intracranial abnormalities.
--- NOTE | 2023-07-23 12:31 | CT_ITS ---
PROCEDURE INFORMATION: Exam: CT Cervical Spine Without Contrast Exam date and time: 07/23/2023 12:53 PM Age: 57 years old Clinical indication: Injury or trauma; Fall; Blunt trauma; Additional info: Fall head and neck injury TECHNIQUE: Imaging protocol: Computed tomography of the cervical spine without contrast. Radiation optimization: All CT scans at this facility use at least one of these dose optimization techniques: automated exposure control; mA and/or kV adjustment per patient size (includes targeted exams where dose is matched to clinical indication); or iterative reconstruction. REPORTING DATA: Count of CT and Cardiac NM exams in prior 12 months: This patient has received 2 known CTs and 0 known cardiac nuclear medicine studies in the 12 months prior to the current study. COMPARISON: CT CERVICAL SPINE WO CON 12/13/2020 10:07 PM FINDINGS: Bones/joints: Normal alignment. No fracture or traumatic subluxation. Disk spaces are maintained. No severe spinal canal stenosis. Lungs: Lung apices are normal. Soft tissues: Unremarkable. IMPRESSION: No acute findings.
--- NOTE | 2023-07-23 12:31 | XR_ITS ---
PROCEDURE INFORMATION: Exam: XR Chest Exam date and time: 07/23/2023 12:48 PM Age: 57 years old Clinical indication: Dyspnea TECHNIQUE: Imaging protocol: Radiologic exam of the chest. Views: 1 view. COMPARISON: CR XR CHEST PORTABLE 07/07/2023 6:43 PM FINDINGS: Lungs: Persistent bandlike opacity right mid lung zone likely secondary to subsegmental atelectasis. Small indistinct opacity lateral to the left hilum, new likely secondary to ongoing airway disease (bronchitis). Faint peribronchial micronodular opacities right lower lobe that appear to progress suspicious for bronchiolitis. Pleural spaces: Unremarkable. No pleural effusion. No pneumothorax. Heart/Mediastinum: Unremarkable. No cardiomegaly. Bones/joints: Unremarkable for age. IMPRESSION: Scattered airway disease with chronic subsegmental atelectasis, otherwise negative.
--- NOTE | 2023-07-23 12:31 | XR_ITS ---
PROCEDURE INFORMATION: Exam: XR Pelvis Exam date and time: 07/23/2023 12:49 PM Age: 57 years old Clinical indication: Injury or trauma; Fall; Blunt trauma (contusions or hematomas); Bilateral; Pelvic region TECHNIQUE: Imaging protocol: Radiologic exam of the pelvis. Views: 1 or 2 view. COMPARISON: CR XR HIP RT 2-3V W/PELVIS 10/07/2020 1:41 PM FINDINGS: Bones/joints: Unremarkable. No fracture, malalignment or deformity detected. No significant degenerative joint changes. Soft tissues: Unremarkable. IMPRESSION: No acute findings.
--- NOTE | 2023-07-23 12:32 | HMH.EDGENADL ---
Discharge Plan Disposition Patient Disposition: Home, Self-Care Chief Complaint: Fall Prescriptions Prescriptions: No Action omeprazole 40 mg capsule,delayed release(DR/EC) 40 mg PO DAILY ipratropium-albuterol 0.5 mg-3 mg(2.5 mg base)/3 mL solution for nebulization 3 ml inhalation lisinopril 10 mg tablet 10 mg PO promethazine 25 mg tablet 25 mg PO Q8H PRN (Reason: nausea and vomiting) Qty: 30 1RF clonazepam 0.5 mg tablet 0.5 mg PO QID Qty: 120 0RF gabapentin 600 mg tablet 600 mg PO TID Qty: 90 0RF benzonatate 200 mg capsule 200 mg PO TID PRN (Reason: cough) clopidogrel 75 mg tablet 75 mg PO DAILY aspirin 81 mg tablet,delayed release (DR/EC) 81 mg PO DAILY risperidone 2 mg tablet 2 mg PO DAILY ferrous sulfate [FeroSul] 325 mg (65 mg iron) tablet 325 mg PO DAILY folic acid 1 mg tablet 1 mg PO DAILY buprenorphine-naloxone 8-2 mg tablet, sublingual 2 tab SUBLINGUAL DAILY rosuvastatin 5 mg tablet 5 mg PO DAILY tizanidine 4 mg tablet 4 mg PO Q8H PRN (Reason: Muscle Spasm) Rx Instructions: TAKE ONE TABLET BY MOUTH EVERY 8 HOURS NEEDED FOR MUSCLE SPASTICITY estradiol 1 mg tablet 1 mg PO DAILY Rx Instructions: TAKE ONE TABLET BY MOUTH ONCE A DAY furosemide 20 mg tablet 20 mg PO DAILY Rx Instructions: TAKE ONE TABLET BY MOUTH ONCE A DAY albuterol sulfate 90 mcg/actuation HFA aerosol inhaler 2 puff inhalation Q6H PRN (Reason: Shortness Of Breath Or Wheezing) Rx Instructions: INHALE 2 PUFFS BY MOUTH EVERY 6 HOURS escitalopram oxalate 20 mg tablet 20 mg PO DAILY Rx Instructions: TAKE ONE TABLET BY MOUTH ONCE A DAY Trelegy Ellipta 100-62.5-25 mcg blister with device 1 inh inhalation DAILY Rx Instructions: INHALE 1 PUFF BY MOUTH ONCE A DAY Referrals Follow up/Referrals: Chuck Pineda MD [Primary Care Provider] - See instructions Clinical Impressions Clinical Impression: Near syncope, Minor head injury, Cervical strain, Chest wall contusion, Contusion of right shoulder Discharge ED Provider: Radha Bagley General Adult HPI General Chief complaint: Fall Stated complaint: [id number] right side pain, home Time Seen by Provider: 07/23/23 12:25 Mode of Arrival: Ambulatory Source of Information: Patient Limitations: No Limitations Description of Symptoms (Recalled from ER Triage Doc. by RN): Patient reports falling down stairs last night hitting her head and injuring her right side of her body. Complaint of pain in her right arm, shoulder, hip and leg. No LOC. History of Present Illness HPI narrative: 57-year-old female very well-known to this emergency department presents today after falling down multiple stairs. States she was feeling lightheaded did not have a complete loss of consciousness but did lose balance falling down 4 stairs from a spiral staircase falling into multiple pieces of furniture hitting her head and the right side of her body. She states she has pain primarily in the right side of her head her right shoulder and right lateral area of her chest wall. Related Data Home Medications Medication Instructions Recorded Confirmed aspirin 81 mg tablet,delayed 81 mg PO DAILY Heart health 03/21/23 07/18/23 release buprenorphine 8 mg-naloxone 2 mg 2 tab sublingual DAILY Opioid 03/21/23 07/18/23 sublingual tablet dependence clopidogrel 75 mg tablet 75 mg PO DAILY Coronary Artery 03/21/23 07/18/23 Disease ferrous sulfate 325 mg (65 mg 325 mg PO DAILY Supplement 03/21/23 07/07/23 iron) tablet (FeroSul) folic acid 1 mg tablet 1 mg PO DAILY Supplement 03/21/23 07/18/23 risperidone 2 mg tablet 2 mg PO DAILY Mood 03/21/23 07/18/23 rosuvastatin 5 mg tablet 5 mg PO DAILY Cholesterol 03/21/23 07/18/23 omeprazole 40 mg capsule,delayed 40 mg PO DAILY Acid Reflux 05/03/23 07/18/23 release benzonatate 200 mg capsule 200 mg PO TID PRN
--- NOTE | 2023-07-23 12:37 | XR_ITS ---
PROCEDURE INFORMATION: Exam: XR Right Shoulder Exam date and time: 07/23/2023 12:46 PM Age: 57 years old Clinical indication: Pain; Shoulder; Right; Additional info: Fall injury TECHNIQUE: Imaging protocol: Radiologic exam of the right shoulder. Views: 2 or more views. COMPARISON: CR XR SHOULDER RT MIN 2V 12/13/2020 9:55 PM FINDINGS: Bones/joints: Osseous structures are intact. No fracture or malalignment. Joint surfaces are preserved. Soft tissues: Normal. IMPRESSION: No acute bony abnormalities.
--- NOTE | 2023-07-23 12:48 | PC.NURSE ---
To radiology via wheelchair
[2023-07-23 12:58] LABS: Basophils % 0.6 % (0.1-2.0); Eosinophils # 0.3 K/mm3 (0.0-0.4); Eosinophils % 4.1 % (0.1-12.0); Hematocrit 43.7 % (37.0-47.0); Hemoglobin 14.1 g/dL (12.2-16.2); Lymphocytes # 2.2 K/mm3 (0.7-4.5); Mean Corpuscular HGB Conc 32.2 g/dL (31.8-35.4); Mean Corpuscular Volume 93.1 fl (81-99); Monocytes # 0.5 K/mm3 (0.1-1.0); Monocytes % 7.5 % (1.7-9.3); Neutrophils # 3.3 K/mm3 (1.8-7.8); Neutrophils % 52.8 % (37.0-80.0); Platelet Count 268 K/mm3 (142-424); Red Cell Distribution Width 14.1 % (11.5-17.5); White Blood Count 6.2 K/mm3 (4.8-10.8)
--- NOTE | 2023-07-23 13:01 | PC.NURSE ---
From radiology via wheelchair
[2023-07-23 13:10] LABS: Alanine Aminotransferase 12 U/L (12-78); Albumin Level 3.3 g/dl (3.5-5.0); Albumin/Globulin Ratio 0.8 (1.1-1.8); Alkaline Phosphatase 94 U/L (38-126); Anion Gap 11.7 mEq/L (5-15); Aspartate Amino Transferase 32 U/L (14-36); Bilirubin,Total 0.3 mg/dl (0.2-1.3); Blood Urea Nitrogen 4 mg/dl (7-17); Calcium 8.7 mg/dl (8.4-10.2); Carbon Dioxide 23 mmol/L (22.0-30.0); Chloride 109 mmol/L (98-107); Creatinine Clearance Estimated 37 mL/min (50-200); Estimated Glomerular Filt Rate 42 ml/min (>60); GFR (African American) 51 ML/MIN (>60); Globulin 3.9 g/dL (1.3-3.2); Glucose 87 mg/dl (74-100); Potassium 3.7 mmoL/L (3.5-5.1); Sodium 140 mmol/L (136-145); Total Protein,Serum 7.2 g/dl (6.3-8.2)
--- NOTE | 2023-07-23 13:10 | ECG_ITS ---
APPROVED REPORT Exam: Resting ECG HR:86 bpm ECG Measurements Heart Rate 86 AXES AL 145 P 55 QRSd 84 QRS 17 QT 355 T 67 QTc 399 Conclusion SINUS RHYTHM LEFT ATRIAL ENLARGEMENT [-0.15mV P-WAVE IN V1/V2] NONSPECIFIC T-WAVE ABNORMALITY ABNORMAL ECG UNCONFIRMED REPORT Electronically signed by : Evaristo Gonzalez MD 07/23/2023 19:40:42
[2023-07-23 13:23] LABS: Troponin I < 0.01 ng/ml (0.00-0.034)
[2023-07-23 13:24] VITALS: BP 107/71; PULSE 80; O2SAT 91
[2023-07-23 14:00] VITALS: BP 123/64; PULSE 76; O2SAT 91
[2023-07-23 14:46] VITALS: BP 107/68; PULSE 80; RESP 20; TEMP 36.6; O2SAT 100
== END 2023-07-23 14:51 | disposition home or self-care (01) ==
PROVIDERS: Emergency Provider Student in an Organized Health Care Education/Training Program; PCP Emergency Medicine
DX: S09.8XXA Other specified injuries of head, initial encounter (principal); R55 Syncope and collapse; S16.1XXA Strain of muscle, fascia and tendon at neck level, initial encounter; S20.219A Contusion of unspecified front wall of thorax, initial encounter; S40.011A Contusion of right shoulder, initial encounter; F41.9 Anxiety disorder, unspecified; I35.1 Nonrheumatic aortic (valve) insufficiency; I25.110 Atherosclerotic heart disease of native coronary artery with unstable angina pectoris; I65.29 Occlusion and stenosis of unspecified carotid artery; M47.22 Other spondylosis with radiculopathy, cervical region; J44.9 Chronic obstructive pulmonary disease, unspecified; F32.A Depression, unspecified; I50.30 Unspecified diastolic (congestive) heart failure; E78.5 Hyperlipidemia, unspecified; M81.0 Age-related osteoporosis without current pathological fracture; I70.1 Atherosclerosis of renal artery; N28.9 Disorder of kidney and ureter, unspecified; F17.210 Nicotine dependence, cigarettes, uncomplicated; W10.9XXA Fall (on) (from) unspecified stairs and steps, initial encounter
CPT/HCPCS: 70450; 71045; 72125; 72170; 73030; 80053; 84484; 85025; 93005; 96361; 96374; 96375; 99285; J2405

== ENCOUNTER 2023-07-24 15:57 | Emergency (ER) | payer OTHER, SELFPAY ==
[2023-07-24 16:00] VITALS: BP 82/59; PULSE 79; O2SAT 100
[2023-07-24 16:01] VITALS: BP 89/72; PULSE 84; O2SAT 100
[2023-07-24 16:06] VITALS: BP 90/72; PULSE 88; RESP 20; TEMP 36.8; O2SAT 100; BMI 23.8
[2023-07-24 16:30] VITALS: BP 105/63; PULSE 74; O2SAT 100
--- NOTE | 2023-07-24 16:47 | PC.NURSE ---
pt to restroom without complications. UA sent to lab in case order is put in. call kim within reach
--- NOTE | 2023-07-24 17:06 | PC.NURSE ---
Dr. Muro at [facility] for pt eval
--- NOTE | 2023-07-24 17:13 | HMH.EDGENADL ---
Discharge Plan Disposition Patient Disposition: Left Against Medical Advice Condition: Good Chief Complaint: PAIN Prescriptions Prescriptions: No Action omeprazole 40 mg capsule,delayed release(DR/EC) 40 mg PO DAILY ipratropium-albuterol 0.5 mg-3 mg(2.5 mg base)/3 mL solution for nebulization 3 ml inhalation lisinopril 10 mg tablet 10 mg PO promethazine 25 mg tablet 25 mg PO Q8H PRN (Reason: nausea and vomiting) Qty: 30 1RF clonazepam 0.5 mg tablet 0.5 mg PO QID Qty: 120 0RF gabapentin 600 mg tablet 600 mg PO TID Qty: 90 0RF benzonatate 200 mg capsule 200 mg PO TID PRN (Reason: cough) clopidogrel 75 mg tablet 75 mg PO DAILY aspirin 81 mg tablet,delayed release (DR/EC) 81 mg PO DAILY risperidone 2 mg tablet 2 mg PO DAILY ferrous sulfate [FeroSul] 325 mg (65 mg iron) tablet 325 mg PO DAILY folic acid 1 mg tablet 1 mg PO DAILY buprenorphine-naloxone 8-2 mg tablet, sublingual 2 tab SUBLINGUAL DAILY rosuvastatin 5 mg tablet 5 mg PO DAILY tizanidine 4 mg tablet 4 mg PO Q8H PRN (Reason: Muscle Spasm) Rx Instructions: TAKE ONE TABLET BY MOUTH EVERY 8 HOURS NEEDED FOR MUSCLE SPASTICITY estradiol 1 mg tablet 1 mg PO DAILY Rx Instructions: TAKE ONE TABLET BY MOUTH ONCE A DAY furosemide 20 mg tablet 20 mg PO DAILY Rx Instructions: TAKE ONE TABLET BY MOUTH ONCE A DAY albuterol sulfate 90 mcg/actuation HFA aerosol inhaler 2 puff inhalation Q6H PRN (Reason: Shortness Of Breath Or Wheezing) Rx Instructions: INHALE 2 PUFFS BY MOUTH EVERY 6 HOURS escitalopram oxalate 20 mg tablet 20 mg PO DAILY Rx Instructions: TAKE ONE TABLET BY MOUTH ONCE A DAY Trelegy Ellipta 100-62.5-25 mcg blister with device 1 inh inhalation DAILY Rx Instructions: INHALE 1 PUFF BY MOUTH ONCE A DAY Referrals Follow up/Referrals: Provider,Referral, MD [Primary Care Provider] - See instructions Clinical Impressions Clinical Impression: Acute shoulder pain, Constipation Discharge ED Provider: Robb Muro General Adult HPI General Chief complaint: PAIN Stated complaint: RT shoulder pain/numbness Time Seen by Provider: 07/24/23 16:26 Mode of Arrival: Ambulatory Source of Information: Patient Limitations: No Limitations Description of Symptoms (Recalled from ER Triage Doc. by RN): pt to ed c/o right arm pain. pt states she sustained a fall x3 weeks ago and has been having pain since. History of Present Illness HPI narrative: Patient is a 57-year-old female with COPD not on daytime oxygen, shoulder pain, CKD, coronary artery disease who presents emergency department for multiple complaints. Patient states that she fell down a flight of stairs and is unsure of exactly what day it happened, denies loss of consciousness. She is complaining only of painful shoulder range of motion with regards to the fall. However she does state that she has been constipated, last bowel movement approximately 2 weeks ago, decreased p.o. intake. Still passing flatus. Denies new trauma. Related Data Home Medications Medication Instructions Recorded Confirmed aspirin 81 mg tablet,delayed 81 mg PO DAILY Heart health 03/21/23 07/18/23 release buprenorphine 8 mg-naloxone 2 mg 2 tab sublingual DAILY Opioid 03/21/23 07/18/23 sublingual tablet dependence clopidogrel 75 mg tablet 75 mg PO DAILY Coronary Artery 03/21/23 07/18/23 Disease ferrous sulfate 325 mg (65 mg 325 mg PO DAILY Supplement 03/21/23 07/07/23 iron) tablet (FeroSul) folic acid 1 mg tablet 1 mg PO DAILY Supplement 03/21/23 07/18/23 risperidone 2 mg tablet 2 mg PO DAILY Mood 03/21/23 07/18/23 rosuvastatin 5 mg tablet 5 mg PO DAILY Cholesterol 03/21/23 07/18/23 omeprazole 40 mg capsule,delayed 40 mg PO DAILY Acid Reflux 05/03/23 07/18/23 release benzonatate 200 mg capsule 200 mg PO TID PRN cough 07/03/23 07/18/23 albuterol
[2023-07-24 17:15] LABS: Microscopic, Urine URINE MICROSCOPIC (MICROSCOPIC)
[2023-07-24 17:16] LABS: Appearance,Urine CLEAR (Clear); Bilirubin,Urine Negative (Negative); Blood, Urine Negative (Negative); Color,Urine YELLOW (Yellow); Glucose,Urine (UA) Negative (Negative); Ketones,Urine Negative (Negative); Leukocyte Esterase,Urine 1+ (Negative); Nitrate,Urine Negative (Negative); PH,Urine 6.5 (5.0-8.5); Protein,Urine Negative (Negative); Urobilinogen,Urine 0.2 EU/dl (0.2)
--- NOTE | 2023-07-24 17:18 | PC.NURSE ---
PT REQUESTING TO LEAVE AMA PT SAYS WE ARENT GONNA DO ANYTHING FOR HER THAT DR ALVAREZ CASTILLO DO IN HIS OFFICE . PT SIGNING AMA AND AMBULATING OUT
[2023-07-24 17:25] VITALS: BP 0/0; PULSE 0; RESP 0; TEMP -17.7; TEMP 0; O2SAT 0
== END 2023-07-24 17:26 | disposition left against medical advice (07) ==
PROVIDERS: Emergency Provider Emergency Medicine
DX: M25.511 Pain in right shoulder (principal); K59.09 Other constipation; F41.9 Anxiety disorder, unspecified; I11.0 Hypertensive heart disease with heart failure; I25.10 Atherosclerotic heart disease of native coronary artery without angina pectoris; I50.30 Unspecified diastolic (congestive) heart failure; J44.9 Chronic obstructive pulmonary disease, unspecified; F32.A Depression, unspecified; E78.5 Hyperlipidemia, unspecified; G47.00 Insomnia, unspecified; W10.8XXA Fall (on) (from) other stairs and steps, initial encounter
CPT/HCPCS: 81001; 87086; 96374; 99284

== ENCOUNTER → 2023-07-30 11:00 | Outpatient (CLI) | payer OTHER, SELFPAY ==
[2023-07-30 18:23] LABS: Barbiturates Screen,Urine Negative ng/ml (<200)
[2023-07-30 18:24] LABS: Amphetamine/Metha Screen,Urine Negative ng/ml (<1000)
[2023-07-30 18:25] LABS: Benzodiazepines Screen,Urine Positive ng/ml (<200); Cannabinoid Screen,Urine Negative ng/ml (<50)
[2023-07-30 18:26] LABS: Cocaine Screen,Urine Negative ng/ml (<300)
[2023-07-30 18:27] LABS: Methadone Screen,Urine Negative ng/ml (<300); Opiate Screen,Urine Negative ng/ml (<300)
[2023-07-30 18:28] LABS: Phencyclidine Screen,Urine Negative ng/ml (<25)
== END ==
PROVIDERS: PCP Emergency Medicine; Visit Provider Emergency Medicine
DX: Z79.899 Other long term (current) drug therapy (principal)
CPT/HCPCS: 80305

== ENCOUNTER → 2023-07-31 16:19 | Outpatient (CLI) | payer OTHER, SELFPAY ==
[2023-07-31 16:27] LABS: Coronavirus 19, PCR Not Detected (NotDetected); Influenza A, PCR Not Detected (NotDetected); Influenza B, PCR Not Detected (NotDetected)
[2023-07-31 17:52] LABS: Basophils # 0.1 K/mm3 (0-0.2); Basophils % 0.9 % (0.1-2.0); Eosinophils # 0.3 K/mm3 (0.0-0.4); Eosinophils % 6.3 % (0.1-12.0); Hematocrit 47.6 % (37.0-47.0); Hemoglobin 15.2 g/dL (12.2-16.2); Lymphocytes # 2.4 K/mm3 (0.7-4.5); Lymphocytes % 44.3 % (10-50); Mean Corpuscular HGB Conc 31.9 g/dL (31.8-35.4); Mean Corpuscular Hemoglobin 29.3 pg (27.0-31.2); Mean Corpuscular Volume 92.1 fl (81-99); Mean Platelet Volume 9.1 fl (7.4-10.4); Monocytes # 0.4 K/mm3 (0.1-1.0); Monocytes % 6.9 % (1.7-9.3); Neutrophils # 2.3 K/mm3 (1.8-7.8); Neutrophils % 41.6 % (37.0-80.0); Platelet Count 254 K/mm3 (142-424); Red Blood Count 5.17 M/mm3 (4.20-5.40); White Blood Count 5.4 K/mm3 (4.8-10.8)
[2023-07-31 18:20] LABS: Alanine Aminotransferase 13 U/L (12-78); Albumin Level 3.9 g/dl (3.5-5.0); Alkaline Phosphatase 136 U/L (38-126); Anion Gap 16.6 mEq/L (5-15); Aspartate Amino Transferase 29 U/L (14-36); Bilirubin,Indirect 0.3 mg/dL (0.0-0.9); Bilirubin,Total 0.3 mg/dl (0.2-1.3); Bilirubin,Unconjugated 0.3 mg/dL (0.0-1.1); Blood Urea Nitrogen 4 mg/dl (7-17); Calcium 9.6 mg/dl (8.4-10.2); Carbon Dioxide 24 mmol/L (22.0-30.0); Chloride 104 mmol/L (98-107); Chol/HDL Ratio 2.5 (1-3.5); Cholesterol 135 mg/dl (140-200); Estimated Glomerular Filt Rate 42 ml/min (>60); GFR (African American) 51 ML/MIN (>60); Glucose 75 mg/dl (74-100); HDL Cholesterol 53 mg/dl (40-60); Magnesium 1.6 mg/dl (1.6-2.3); Potassium 3.6 mmoL/L (3.5-5.1); Sodium 141 mmol/L (136-145); Triglycerides 150 mg/dl (30-150); VLDL Cholesterol 30 mg/dL (0-40)
[2023-07-31 18:33] LABS: NT Pro Brain Natriuretic Pep. 286 pg/mL (0-125)
[2023-07-31 18:35] LABS: Direct LDL Cholesterol 44.64 mg/dL (100-129)
[2023-07-31 18:39] LABS: Free T4 (Free Thyroxine) 1.01 ng/dl (0.78-2.19)
[2023-07-31 18:40] LABS: Procalcitonin 0.055 ng/mL (0.0-2.0)
[2023-07-31 18:54] LABS: Thyroid Stimulating Hormone 2.92 uIU/mL (0.465-4.68)
[2023-07-31 19:52] LABS: Erythrocyte Sedimentation Rate 18 mm/hr (0-30)
[2023-07-31 21:43] LABS: C-Reactive Protein 2.8 mg/L (0-4)
== END ==
PROVIDERS: PCP Emergency Medicine; Visit Provider Internal Medicine
DX: R06.00 Dyspnea, unspecified (principal); R55 Syncope and collapse; R11.0 Nausea; R68.83 Chills (without fever); I25.10 Atherosclerotic heart disease of native coronary artery without angina pectoris; I35.1 Nonrheumatic aortic (valve) insufficiency; I10 Essential (primary) hypertension; I50.9 Heart failure, unspecified; D50.9 Iron deficiency anemia, unspecified; E11.9 Type 2 diabetes mellitus without complications; E78.5 Hyperlipidemia, unspecified; I63.9 Cerebral infarction, unspecified; J44.9 Chronic obstructive pulmonary disease, unspecified; N18.9 Chronic kidney disease, unspecified; Z72.0 Tobacco use
CPT/HCPCS: 36415; 80048; 80061; 80076; 83735; 83880; 84145; 84439; 84443; 85025; 85651; 86140; 87040; 87086; 87636

== ENCOUNTER 2023-08-01 14:34 | Emergency (ER) | payer OTHER, SELFPAY ==
[2023-08-01 14:34] VITALS: BP 110/59; PULSE 76; RESP 16; TEMP 36.7; O2SAT 96; BMI 19.0
--- NOTE | 2023-08-01 14:57 | ECG_ITS ---
APPROVED REPORT Exam: Resting ECG HR:68 bpm ECG Measurements Heart Rate 68 AXES IL 191 P 80 QRSd 92 QRS 83 QT 419 T 81 QTc 436 Conclusion SINUS RHYTHM NORMAL ECG UNCONFIRMED REPORT Electronically signed by : Evaristo Gonzalez MD 08/01/2023 18:30:18
[2023-08-01 15:00] VITALS: BP 103/63; PULSE 80; O2SAT 93
[2023-08-01 15:31] VITALS: BP 139/66; PULSE 78; O2SAT 94
--- NOTE | 2023-08-01 15:36 | XR_ITS ---
FINAL REPORT CLINICAL HISTORY: fall, right shoulder injury COMPARISON: 07/23/2023 FINDINGS: RIGHT SHOULDER Three views demonstrate no acute fracture or dislocation. The visualized joint spaces are normally aligned. The soft tissues are unremarkable. IMPRESSION: No acute process. Reviewed, Interpreted and Dictated by Nik Aguero MD Transcribed by Janneth Gamble Authenticated and [facility]
--- NOTE | 2023-08-01 15:36 | XR_ITS ---
FINAL REPORT CLINICAL HISTORY: fall, left hand injury COMPARISON: 07/07/2023 FINDINGS: LEFT HAND Three views demonstrate no acute fracture or dislocation. The visualized joint spaces are normally aligned. The soft tissues are unremarkable. IMPRESSION: No acute process. Reviewed, Interpreted and Dictated by Nik Aguero MD Transcribed by Janneth Gamble Authenticated and [facility]
--- NOTE | 2023-08-01 15:39 | HMH.EDGENADL ---
Discharge Plan Disposition Patient Disposition: Home, Self-Care Condition: Good Prescriptions Prescriptions: No Action omeprazole 40 mg capsule,delayed release(DR/EC) 40 mg PO DAILY ipratropium-albuterol 0.5 mg-3 mg(2.5 mg base)/3 mL solution for nebulization 3 ml inhalation promethazine 25 mg tablet 25 mg PO Q8H PRN (Reason: nausea and vomiting) Qty: 30 1RF clonazepam 0.5 mg tablet 0.5 mg PO QID Qty: 120 1RF gabapentin 600 mg tablet 600 mg PO TID Qty: 90 1RF benzonatate 200 mg capsule 200 mg PO TID PRN (Reason: cough) estradiol 1 mg tablet See Rx Instructions .ROUTE .COMPLEX Qty: 30 0RF Dose Instruction: TAKE ONE TABLET BY MOUTH ONCE A DAY Rx Instructions: TAKE ONE TABLET BY MOUTH ONCE A DAY tizanidine 4 mg tablet See Rx Instructions .ROUTE .COMPLEX Qty: 90 0RF Dose Instruction: TAKE ONE TABLET BY MOUTH EVERY 8 HOURS NEEDED FOR MUSCLE SPASTICITY Rx Instructions: TAKE ONE TABLET BY MOUTH EVERY 8 HOURS NEEDED FOR MUSCLE SPASTICITY furosemide 20 mg tablet See Rx Instructions .ROUTE .COMPLEX Qty: 30 0RF Dose Instruction: TAKE ONE TABLET BY MOUTH ONCE A DAY Rx Instructions: TAKE ONE TABLET BY MOUTH ONCE A DAY Trelegy Ellipta 100-62.5-25 mcg blister with device See Rx Instructions .ROUTE .COMPLEX Qty: 60 2RF Dose Instruction: INHALE 1 PUFF BY MOUTH ONCE A DAY Rx Instructions: INHALE 1 PUFF BY MOUTH ONCE A DAY escitalopram oxalate 20 mg tablet See Rx Instructions .ROUTE .COMPLEX Qty: 30 0RF Dose Instruction: TAKE ONE TABLET BY MOUTH ONCE A DAY Rx Instructions: TAKE ONE TABLET BY MOUTH ONCE A DAY albuterol sulfate 90 mcg/actuation HFA aerosol inhaler See Rx Instructions .ROUTE .COMPLEX Qty: 8.5 0RF Dose Instruction: INHALE 2 PUFFS BY MOUTH EVERY 6 HOURS Rx Instructions: INHALE 2 PUFFS BY MOUTH EVERY 6 HOURS clopidogrel 75 mg tablet 75 mg PO DAILY aspirin 81 mg tablet,delayed release (DR/EC) 81 mg PO DAILY risperidone 2 mg tablet 2 mg PO DAILY ferrous sulfate [FeroSul] 325 mg (65 mg iron) tablet 325 mg PO DAILY folic acid 1 mg tablet 1 mg PO DAILY buprenorphine-naloxone 8-2 mg tablet, sublingual 2 tab SUBLINGUAL DAILY rosuvastatin 5 mg tablet 5 mg PO DAILY Referrals Follow up/Referrals: Chuck Pineda MD [Primary Care Provider] - See instructions Activity Restrictions/Add. Instructions Additional Instructions/Restrictions: No evidence of fracture or dislocation on your evaluation today. Please take Tylenol and ibuprofen as needed for your symptoms return with any worsening concerns. Clinical Impressions Clinical Impression: Contusion of right shoulder, Minor head injury, Cervical strain, Contusion of hand, left Instructions Patient Instructions: DI for Syncope in Adults (Fainting), DI for Syncope in Children (Fainting) Discharge ED Provider: Arik Romero General Adult HPI General Chief complaint: Syncope Stated complaint: Syncope Time Seen by Provider: 08/01/23 15:27 Mode of Arrival: Ambulatory Source of Information: Patient Limitations: No Limitations Description of Symptoms (Recalled from ER Triage Doc. by RN): Pt reports nausea earlier in the afternoon so she went home and took phenergan. Aprox an hour prior to arrival pt reports going to the bathroom and having a syncopal episode. She states she woke up in the bath tub and doesnt know how long she was down. Pt c/o pain to the back of her head, right shoulder pain, left hand pain, and RLQ abdominal pain that she says been going on for weeks . Pt mildly tender to tough in RLQ. No LAC to head or obvious deformities to extremties noted. History of Present Illness HPI narrative: Patient is a 57-year-old female well-known to this department here after a fall. Claims that she had a syncopal episode and woke up in the bathtub and thinks that she had an in
[2023-08-01 16:00] VITALS: BP 118/69; PULSE 78; O2SAT 95
[2023-08-01 16:30] VITALS: BP 99/62; PULSE 76; O2SAT 96
--- NOTE | 2023-08-01 17:05 | PC.NURSE ---
CONTACTED PT RIDE AT THIS TIME PER PT REQUEST, RODRÍGUEZ
[2023-08-01 17:06] VITALS: BP 121/67; PULSE 80; RESP 18; TEMP 36.6; O2SAT 97
== END 2023-08-01 17:13 | disposition home or self-care (01) ==
PROVIDERS: Emergency Provider Emergency Medicine; PCP Emergency Medicine
DX: S09.8XXA Other specified injuries of head, initial encounter (principal); S16.1XXA Strain of muscle, fascia and tendon at neck level, initial encounter; S40.011A Contusion of right shoulder, initial encounter; S60.222A Contusion of left hand, initial encounter; R10.31 Right lower quadrant pain; F41.9 Anxiety disorder, unspecified; I25.110 Atherosclerotic heart disease of native coronary artery with unstable angina pectoris; I65.29 Occlusion and stenosis of unspecified carotid artery; J44.9 Chronic obstructive pulmonary disease, unspecified; I50.30 Unspecified diastolic (congestive) heart failure; F17.210 Nicotine dependence, cigarettes, uncomplicated; W19.XXXA Unspecified fall, initial encounter
CPT/HCPCS: 73030; 73130; 93005; 99284

== ENCOUNTER 2023-08-07 16:10 | Emergency (ER) | payer OTHER, SELFPAY ==
[2023-08-07 16:11] VITALS: BP 123/86; PULSE 88; RESP 16; TEMP 36.9; O2SAT 96; BMI 19.0
[2023-08-07 16:14] VITALS: BP 123/86; PULSE 76; O2SAT 97
--- NOTE | 2023-08-07 16:15 | ECG_ITS ---
APPROVED REPORT Exam: Resting ECG HR:75 bpm ECG Measurements Heart Rate 75 AXES PA 156 P 75 QRSd 90 QRS 77 QT 389 T 78 QTc 418 Conclusion SINUS RHYTHM NORMAL ECG UNCONFIRMED REPORT Electronically signed by : Evaristo Gonzalez MD 08/08/2023 19:59:04
[2023-08-07 16:30] VITALS: BP 124/76; PULSE 79; O2SAT 98
--- NOTE | 2023-08-07 16:31 | PC.NURSE ---
nurses at trying to get an leighton with ultrasound
[2023-08-07 16:32] VITALS: BP 157/62; PULSE 80; O2SAT 92
--- NOTE | 2023-08-07 16:46 | XR_ITS ---
PROCEDURE INFORMATION: Exam: XR Chest Exam date and time: 08/07/2023 4:50 PM Age: 57 years old Clinical indication: Pain; Chest pressure; Additional info: Dyspnea TECHNIQUE: Imaging protocol: Radiologic exam of the chest. Views: 1 view. COMPARISON: CR XR CHEST PORTABLE 07/23/2023 12:48 PM FINDINGS: Lungs: Mildly increased linear markings in the lung bases are stable suggestive of parenchymal scarring. Mild hypo vascularity to the lung apices suggests emphysema. The lungs appear otherwise clear. No focal areas of consolidation. Pleural spaces: No pleural effusions. Negative for pneumothorax. Heart/Mediastinum: Cardiac silhouette and pulmonary vasculature are within range of normal. Surgical clips in the right upper quadrant indicate cholecystectomy. Bones/joints: There is no evidence of acute fracture. IMPRESSION: Negative for an acute cardiopulmonary abnormality. Stable chest radiograph.
--- NOTE | 2023-08-07 16:47 | HMH.EDGENADL ---
Discharge Plan Disposition Patient Disposition: Home, Self-Care Prescriptions Prescriptions: No Action omeprazole 40 mg capsule,delayed release(DR/EC) 40 mg PO DAILY ipratropium-albuterol 0.5 mg-3 mg(2.5 mg base)/3 mL solution for nebulization 3 ml inhalation promethazine 25 mg tablet 25 mg PO Q8H PRN (Reason: nausea and vomiting) Qty: 30 1RF clonazepam 0.5 mg tablet 0.5 mg PO QID Qty: 120 1RF gabapentin 600 mg tablet 600 mg PO TID Qty: 90 1RF benzonatate 200 mg capsule 200 mg PO TID PRN (Reason: cough) estradiol 1 mg tablet See Rx Instructions .ROUTE .COMPLEX Qty: 30 0RF Dose Instruction: TAKE ONE TABLET BY MOUTH ONCE A DAY Rx Instructions: TAKE ONE TABLET BY MOUTH ONCE A DAY tizanidine 4 mg tablet See Rx Instructions .ROUTE .COMPLEX Qty: 90 0RF Dose Instruction: TAKE ONE TABLET BY MOUTH EVERY 8 HOURS NEEDED FOR MUSCLE SPASTICITY Rx Instructions: TAKE ONE TABLET BY MOUTH EVERY 8 HOURS NEEDED FOR MUSCLE SPASTICITY furosemide 20 mg tablet See Rx Instructions .ROUTE .COMPLEX Qty: 30 0RF Dose Instruction: TAKE ONE TABLET BY MOUTH ONCE A DAY Rx Instructions: TAKE ONE TABLET BY MOUTH ONCE A DAY Trelegy Ellipta 100-62.5-25 mcg blister with device See Rx Instructions .ROUTE .COMPLEX Qty: 60 2RF Dose Instruction: INHALE 1 PUFF BY MOUTH ONCE A DAY Rx Instructions: INHALE 1 PUFF BY MOUTH ONCE A DAY escitalopram oxalate 20 mg tablet See Rx Instructions .ROUTE .COMPLEX Qty: 30 0RF Dose Instruction: TAKE ONE TABLET BY MOUTH ONCE A DAY Rx Instructions: TAKE ONE TABLET BY MOUTH ONCE A DAY albuterol sulfate 90 mcg/actuation HFA aerosol inhaler See Rx Instructions .ROUTE .COMPLEX Qty: 8.5 0RF Dose Instruction: INHALE 2 PUFFS BY MOUTH EVERY 6 HOURS Rx Instructions: INHALE 2 PUFFS BY MOUTH EVERY 6 HOURS clopidogrel 75 mg tablet 75 mg PO DAILY aspirin 81 mg tablet,delayed release (DR/EC) 81 mg PO DAILY risperidone 2 mg tablet 2 mg PO DAILY ferrous sulfate [FeroSul] 325 mg (65 mg iron) tablet 325 mg PO DAILY folic acid 1 mg tablet 1 mg PO DAILY buprenorphine-naloxone 8-2 mg tablet, sublingual 2 tab SUBLINGUAL DAILY rosuvastatin 5 mg tablet 5 mg PO DAILY Referrals Follow up/Referrals: Chuck Pineda MD [Primary Care Provider] - See instructions Activity Restrictions/Add. 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 Clinical Impressions Clinical Impression: Atypical chest pain Discharge ED Provider: Radha Bagley General Adult HPI General Chief complaint: Chest Pain Stated complaint: chest pain Time Seen by Provider: 08/07/23 16:36 Mode of Arrival: EMS Source of Information: Patient Limitations: No Limitations Description of Symptoms (Recalled from ER Triage Doc. by RN): Patient states she has had midsternal chest pain that radiates to her back and down her arm since yesterday. History of Present Illness HPI narrative: Patient is a 57-year-old female very well-known to this department frequents the ED presenting today with nontraumatic chest pain. This has been ongoing since yesterday evening unchanged to substernal rating to her left arm. Nonexertional no dyspnea no diaphoresis associated with this no fevers chills cough or any other concerns. Was recently seen by cardiology and is being referred to outpatient to for aortic insufficiency. Had a recent CTA which did not show any aortic pathology or pulmonary embolism. No lower extremity edema asymmetric swelling hemoptysis or any other concerns. Related Data Home Medications Medication Instructions Recorded Confirmed aspirin 81 mg tablet,delayed 81 mg PO DAILY Heart [facility] 03/21/23 07/31/23 release buprenorphine 8 mg-naloxone 2 mg 2 tab sublingua
[2023-08-07 17:02] LABS: Basophils % 0.6 % (0.1-2.0); Eosinophils # 0.3 K/mm3 (0.0-0.4); Eosinophils % 5.3 % (0.1-12.0); Hematocrit 47.7 % (37.0-47.0); Lymphocytes # 1.9 K/mm3 (0.7-4.5); Lymphocytes % 30.3 % (10-50); Mean Corpuscular HGB Conc 31.4 g/dL (31.8-35.4); Mean Corpuscular Hemoglobin 29.6 pg (27.0-31.2); Mean Corpuscular Volume 94.2 fl (81-99); Mean Platelet Volume 9.1 fl (7.4-10.4); Monocytes # 0.5 K/mm3 (0.1-1.0); Monocytes % 7.8 % (1.7-9.3); Neutrophils # 3.5 K/mm3 (1.8-7.8); Neutrophils % 55.9 % (37.0-80.0); Platelet Count 227 K/mm3 (142-424); Red Blood Count 5.06 M/mm3 (4.20-5.40); Red Cell Distribution Width 14.2 % (11.5-17.5); White Blood Count 6.2 K/mm3 (4.8-10.8)
[2023-08-07 17:06] LABS: Chloride 108 mmol/L (98-107); Potassium 3.4 mmoL/L (3.5-5.1); Sodium 140 mmol/L (136-145)
[2023-08-07 17:09] LABS: Alanine Aminotransferase 11 U/L (12-78); Albumin Level 3.5 g/dl (3.5-5.0); Albumin/Globulin Ratio 0.9 (1.1-1.8); Alkaline Phosphatase 109 U/L (38-126); Anion Gap 9.4 mEq/L (5-15); Aspartate Amino Transferase 30 U/L (14-36); Bilirubin,Total 0.5 mg/dl (0.2-1.3); Blood Urea Nitrogen 10 mg/dl (7-17); Carbon Dioxide 26 mmol/L (22.0-30.0); Creatinine Clearance Estimated 33 mL/min (50-200); Estimated Glomerular Filt Rate 39 ml/min (>60); GFR (African American) 47 ML/MIN (>60); Globulin 3.8 g/dL (1.3-3.2); Total Protein,Serum 7.3 g/dl (6.3-8.2)
[2023-08-07 17:10] LABS: Calcium 9.2 mg/dl (8.4-10.2); Glucose 90 mg/dl (74-100)
--- NOTE | 2023-08-07 17:22 | CT_ITS ---
PROCEDURE INFORMATION: Exam: CTA Chest With Contrast Exam date and time: 08/07/2023 5:57 PM Age: 57 years old Clinical indication: Other: Elevated d dimer; Additional info: Chest pain, elevated d dimer TECHNIQUE: Imaging protocol: Computed tomographic angiography of the chest with contrast. Exam focused on the arteries. 3D rendering (Not supervised by radiologist): MIP and/or 3D reconstructed images were created by the technologist. Radiation optimization: All CT scans at this facility use at least one of these dose optimization techniques: automated exposure control; mA and/or kV adjustment per patient size (includes targeted exams where dose is matched to clinical indication); or iterative reconstruction. Contrast material: ISO 370; Contrast volume: 70 ml; Contrast route: INTRAVENOUS (IV); REPORTING DATA: Count of CT and Cardiac NM exams in prior 12 months: This patient has received 4 known CTs and 0 known cardiac nuclear medicine studies in the 12 months prior to the current study. COMPARISON: CT ANGIO CHEST 05/25/2023 11:20 AM FINDINGS: Pulmonary arteries: There is no evidence of filling defects within the pulmonary arterial circulation to suggest pulmonary embolism. Aorta: There is no evidence of an aortic aneurysm. There is no evidence of aortic dissection, leak, rupture, or other acute vascular pathology. Renal arteries: A vascular stent is present involving the left proximal renal artery, incompletely visualized. Thyroid: The thyroid gland is normal. Lungs: No focal areas of consolidation. Nonspecific right middle lobe streaky opacities suggest atelectasis or parenchymal scarring. Trace linear markings in the lingula suggest parenchymal scarring or atelectasis. There is a small subpleural nodular density in the posterior right lower lobe seen on series 1002, image 30. There are a few small nodular densities in the posterior aspect of the right upper lobe, none measuring larger than 6 mm, best seen on series 1002, images 31 to 28. There is a small nodular density in the posterior aspect of the left upper lobe seen on series 1002, image 60. A calcified granuloma is present in the left lung. Pleural spaces: There are no pleural effusions. No pneumothorax. Heart: The heart is not enlarged. There is no evidence of pericardial fluid collections. There is a small pericardial fluid collection present. Lymph nodes: There is no evidence of pathologic adenopathy. A few calcified lymph nodes in the left hilar region indicate prior granulomatous disease. Kidneys and ureters: There is mild renal cortical thinning involving the visualized left kidney suggesting chronic medical renal disease. There has been a cholecystectomy. There is a mild, expected degree of common bile duct dilation, as before. Stomach and bowel: Apparent mild proximal gastric mural thickening could be on the basis of incomplete distension but cannot exclude gastritis or other inflammatory or infiltrative process. Correlate clinically. Bones/joints: There is no evidence of acute fracture. Soft tissues: No significant soft tissue edema. IMPRESSION: 1. No evidence of pulmonary embolism. 2. Apparent mild proximal gastric mural thickening could be on the basis of incomplete distension but cannot exclude gastritis or other inflammatory or infiltrative process. Correlate clinically. 3. Several pulmonary nodular densities bilaterally. For patients at low risk (minimal or absent history of smoking and of other known risk factors), no routine follow-up is indicated. For patients at high risk (history of smoking or of other known risk factors), consider optional CT Chest at 12 months. (Reference: Roque) References: Roque Andres, et al. Guidelines for Management o
[2023-08-07 17:24] LABS: Troponin I < 0.01 ng/ml (0.00-0.034)
--- NOTE | 2023-08-07 17:25 | PC.NURSE ---
rad called to say pt gfr was 39 didnt know if we planned to give her fluids first, told them we would speak with
--- NOTE | 2023-08-07 17:28 | PC.NURSE ---
Called rad and let them know was okay for pt to go to ct before receiving fluids
--- NOTE | 2023-08-07 17:50 | PC.NURSE ---
pt to ct by wheelchair
[2023-08-07 18:34] VITALS: BP 144/82; PULSE 78; RESP 18; TEMP 36.6; O2SAT 99
== END 2023-08-07 18:35 | disposition home or self-care (01) ==
PROVIDERS: Emergency Provider Student in an Organized Health Care Education/Training Program; PCP Emergency Medicine
DX: R07.9 Chest pain, unspecified (principal); M79.602 Pain in left arm; F41.9 Anxiety disorder, unspecified; I35.1 Nonrheumatic aortic (valve) insufficiency; I25.110 Atherosclerotic heart disease of native coronary artery with unstable angina pectoris; I65.29 Occlusion and stenosis of unspecified carotid artery; I50.30 Unspecified diastolic (congestive) heart failure; J44.9 Chronic obstructive pulmonary disease, unspecified; F32.A Depression, unspecified; E78.5 Hyperlipidemia, unspecified; M81.8 Other osteoporosis without current pathological fracture; I70.1 Atherosclerosis of renal artery; N28.9 Disorder of kidney and ureter, unspecified; F17.210 Nicotine dependence, cigarettes, uncomplicated
CPT/HCPCS: 71045; 71275; 80053; 84484; 85025; 85378; 93005; 99285; Q9967

== ENCOUNTER 2023-08-15 13:45 | Emergency (ER) | payer OTHER, SELFPAY ==
[2023-08-15 13:45] VITALS: BP 72/53; PULSE 60; RESP 16; TEMP 36.5; O2SAT 92; BMI 19.0
[2023-08-15 14:23] VITALS: BP 101/61; PULSE 71; O2SAT 96
[2023-08-15 14:30] VITALS: BP 102/63; PULSE 73; O2SAT 95
--- NOTE | 2023-08-15 14:32 | HMH.EDGENADL ---
Discharge Plan Disposition Patient Disposition: Home, Self-Care Condition: Good Prescriptions Prescriptions: No Action omeprazole 40 mg capsule,delayed release(DR/EC) 40 mg PO DAILY ipratropium-albuterol 0.5 mg-3 mg(2.5 mg base)/3 mL solution for nebulization 3 ml inhalation promethazine 25 mg tablet 25 mg PO Q8H PRN (Reason: nausea and vomiting) Qty: 30 1RF clonazepam 0.5 mg tablet 0.5 mg PO QID Qty: 120 1RF gabapentin 600 mg tablet 600 mg PO TID Qty: 90 1RF benzonatate 200 mg capsule 200 mg PO TID PRN (Reason: cough) estradiol 1 mg tablet See Rx Instructions .ROUTE .COMPLEX Qty: 30 0RF Dose Instruction: TAKE ONE TABLET BY MOUTH ONCE A DAY Rx Instructions: TAKE ONE TABLET BY MOUTH ONCE A DAY tizanidine 4 mg tablet See Rx Instructions .ROUTE .COMPLEX Qty: 90 0RF Dose Instruction: TAKE ONE TABLET BY MOUTH EVERY 8 HOURS NEEDED FOR MUSCLE SPASTICITY Rx Instructions: TAKE ONE TABLET BY MOUTH EVERY 8 HOURS NEEDED FOR MUSCLE SPASTICITY furosemide 20 mg tablet See Rx Instructions .ROUTE .COMPLEX Qty: 30 0RF Dose Instruction: TAKE ONE TABLET BY MOUTH ONCE A DAY Rx Instructions: TAKE ONE TABLET BY MOUTH ONCE A DAY Trelegy Ellipta 100-62.5-25 mcg blister with device See Rx Instructions .ROUTE .COMPLEX Qty: 60 2RF Dose Instruction: INHALE 1 PUFF BY MOUTH ONCE A DAY Rx Instructions: INHALE 1 PUFF BY MOUTH ONCE A DAY escitalopram oxalate 20 mg tablet See Rx Instructions .ROUTE .COMPLEX Qty: 30 0RF Dose Instruction: TAKE ONE TABLET BY MOUTH ONCE A DAY Rx Instructions: TAKE ONE TABLET BY MOUTH ONCE A DAY albuterol sulfate 90 mcg/actuation HFA aerosol inhaler See Rx Instructions .ROUTE .COMPLEX Qty: 8.5 0RF Dose Instruction: INHALE 2 PUFFS BY MOUTH EVERY 6 HOURS Rx Instructions: INHALE 2 PUFFS BY MOUTH EVERY 6 HOURS clopidogrel 75 mg tablet 75 mg PO DAILY aspirin 81 mg tablet,delayed release (DR/EC) 81 mg PO DAILY risperidone 2 mg tablet 2 mg PO DAILY ferrous sulfate [FeroSul] 325 mg (65 mg iron) tablet 325 mg PO DAILY folic acid 1 mg tablet 1 mg PO DAILY buprenorphine-naloxone 8-2 mg tablet, sublingual 2 tab SUBLINGUAL DAILY rosuvastatin 5 mg tablet 5 mg PO DAILY Referrals Follow up/Referrals: Provider,Referral, [Primary Care Provider] - See instructions Activity Restrictions/Add. Instructions Additional Instructions/Restrictions: Follow-up with your primary care provider over the next 3 days. Avoid smoking marijuana. Return to the emergency department for new or worsening symptoms. Clinical Impressions Clinical Impression: Weakness, Marijuana intoxication, Right shoulder pain Instructions Patient Instructions: DI for Muscle Weakness Discharge ED Provider: Yoly Arshad General Adult HPI <Robb Muro MD - Last Filed: 08/15/23 15:58> General Chief complaint: Weakness Stated complaint: Fall Time Seen by Provider: 08/15/23 14:30 Mode of Arrival: EMS Source of Information: Patient Limitations: No Limitations Description of Symptoms (Recalled from ER Triage Doc. by RN): Patient reports smoking a joint and about 15 minutes later she went to stand up and states that her legs felt like jello. Per ems patient complained about right shoulder and neck pain related to a fall a couple of weeks ago. Per EMS patient was seen at last night for chest pain. History of Present Illness HPI narrative: Patient is a 57-year-old female well-known to this hospital system who presents to the emergency department for evaluation of legs feeling like Jell-O . Patient states that she smoked a joint prior to arrival. She feels that she has bilateral lower extremity weakness and mouth is dry and is requesting water. She states that she fell couple weeks ago on her right shoulder and since then has been having pain. Patient den
--- NOTE | 2023-08-15 14:34 | XR_ITS ---
FINAL REPORT CLINICAL HISTORY: encephalopathy COMPARISON: 07/23/2023 FINDINGS: SINGLE VIEW CHEST The heart size is normal. The mediastinum is within normal limits. There is a mild right lung base opacity, favor atelectasis. There is no evidence of pneumothorax. The bony thorax is intact. IMPRESSION: Mild right lung base opacity, favor atelectasis. Reviewed, Interpreted and Dictated by Edward Espinoza III, MD Transcribed by Sue Sparks Authenticated and [facility]
--- NOTE | 2023-08-15 14:35 | XR_ITS ---
FINAL REPORT CLINICAL HISTORY: fall COMPARISON: 10/13/2021 FINDINGS: RIGHT SHOULDER Two views demonstrate no acute fracture or dislocation. The joint spaces appear normal. The visualized bony structures are well aligned. No soft tissue abnormality is seen. IMPRESSION: No acute process. Reviewed, Interpreted and Dictated by Edward Espinoza III, MD Transcribed by Sue Sparks Authenticated and [facility]
--- NOTE | 2023-08-15 14:35 | XR_ITS ---
FINAL REPORT CLINICAL HISTORY: fall COMPARISON: 12/13/2020 FINDINGS: RIGHT CLAVICLE: 2 views of the right clavicle failed to reveal any evidence of fracture or dislocation. No significant bony abnormality is identified. IMPRESSION: No acute bony abnormality identified. Reviewed, Interpreted and Dictated by Edward Espinoza III, MD Transcribed by Sue Sparks Authenticated and [facility]
--- NOTE | 2023-08-15 14:41 | ECG_ITS ---
APPROVED REPORT Exam: Resting ECG HR:68 bpm ECG Measurements Heart Rate 68 AXES GA 168 P 66 QRSd 90 QRS 76 QT 450 T 78 QTc 467 Conclusion SINUS RHYTHM NORMAL ECG UNCONFIRMED REPORT Electronically signed by : Evaristo Gonzalez MD 08/16/2023 16:01:41
[2023-08-15 15:08] LABS: Basophils # 0.1 K/mm3 (0-0.2); Basophils % 0.8 % (0.1-2.0); Eosinophils # 0.6 K/mm3 (0.0-0.4); Eosinophils % 7.5 % (0.1-12.0); Hematocrit 41.3 % (37.0-47.0); Hemoglobin 12.8 g/dL (12.2-16.2); Lymphocytes # 2.3 K/mm3 (0.7-4.5); Mean Corpuscular HGB Conc 30.9 g/dL (31.8-35.4); Mean Corpuscular Hemoglobin 29.1 pg (27.0-31.2); Mean Platelet Volume 9.4 fl (7.4-10.4); Monocytes # 0.5 K/mm3 (0.1-1.0); Monocytes % 6.3 % (1.7-9.3); Neutrophils # 4.1 K/mm3 (1.8-7.8); Neutrophils % 54.4 % (37.0-80.0); Platelet Count 210 K/mm3 (142-424); Red Blood Count 4.39 M/mm3 (4.20-5.40); Red Cell Distribution Width 14.2 % (11.5-17.5); White Blood Count 7.5 K/mm3 (4.8-10.8)
[2023-08-15 15:14] LABS: Alanine Aminotransferase 13 U/L (12-78); Albumin Level 2.9 g/dl (3.5-5.0); Albumin/Globulin Ratio 0.9 (1.1-1.8); Alkaline Phosphatase 80 U/L (38-126); Anion Gap 10.6 mEq/L (5-15); Aspartate Amino Transferase 24 U/L (14-36); Bilirubin,Total < 0.1 mg/dl (0.2-1.3); Blood Urea Nitrogen 6 mg/dl (7-17); Calcium 8.4 mg/dl (8.4-10.2); Carbon Dioxide 25 mmol/L (22.0-30.0); Chloride 104 mmol/L (98-107); Creatinine Clearance Estimated 36 mL/min (50-200); Estimated Glomerular Filt Rate 42 ml/min (>60); GFR (African American) 51 ML/MIN (>60); Globulin 3.2 g/dL (1.3-3.2); Glucose 80 mg/dl (74-100); Magnesium 1.6 mg/dl (1.6-2.3); Potassium 3.6 mmoL/L (3.5-5.1); Sodium 136 mmol/L (136-145); Total Protein,Serum 6.1 g/dl (6.3-8.2)
[2023-08-15 15:16] VITALS: BP 92/75; PULSE 72; O2SAT 94
[2023-08-15 15:44] LABS: VBG Base Excess -1.5 mmol/L (-2.4-2.3); VBG HCO3 24.4 mmol/L (23-30); VBG Oxygen Saturation 96.5 % (50-70); VBG PCO2 47.4 mmol/L (35-51); VBG PH 7.33 mmol/L (7.31-7.41); VBG PO2 85.4 mmol/L (28-40); VBG Total CO2 25.9 mmol/L (23-27)
--- NOTE | 2023-08-15 16:02 | PC.NURSE ---
Patient provided assistance to the bathroom and a ham sandwich with a water.
[2023-08-15 16:41] LABS: Amphetamine/Metha Screen,Urine Negative ng/ml (<1000)
[2023-08-15 16:42] LABS: Barbiturates Screen,Urine Negative ng/ml (<200); Benzodiazepines Screen,Urine Positive ng/ml (<200)
[2023-08-15 16:43] LABS: Cannabinoid Screen,Urine Positive ng/ml (<50)
[2023-08-15 16:44] LABS: Cocaine Screen,Urine Negative ng/ml (<300); Methadone Screen,Urine Negative ng/ml (<300)
[2023-08-15 16:45] LABS: Opiate Screen,Urine Negative ng/ml (<300); Phencyclidine Screen,Urine Negative ng/ml (<25)
[2023-08-15 17:45] VITALS: BP 106/60; PULSE 72; RESP 18; TEMP 36.7; O2SAT 98
== END 2023-08-15 17:46 | disposition home or self-care (01) ==
PROVIDERS: Emergency Medicine; Emergency Provider Emergency Medicine
DX: M54.2 Cervicalgia (principal); R53.1 Weakness; M25.511 Pain in right shoulder; F12.920 Cannabis use, unspecified with intoxication, uncomplicated; W18.30XA Fall on same level, unspecified, initial encounter; F41.9 Anxiety disorder, unspecified; I35.1 Nonrheumatic aortic (valve) insufficiency; I25.110 Atherosclerotic heart disease of native coronary artery with unstable angina pectoris; I65.29 Occlusion and stenosis of unspecified carotid artery; I50.30 Unspecified diastolic (congestive) heart failure; J44.9 Chronic obstructive pulmonary disease, unspecified; B19.20 Unspecified viral hepatitis C without hepatic coma; E78.5 Hyperlipidemia, unspecified; M81.8 Other osteoporosis without current pathological fracture; I70.1 Atherosclerosis of renal artery; N28.9 Disorder of kidney and ureter, unspecified
CPT/HCPCS: 71045; 73000; 73030; 80053; 80305; 82803; 83735; 85025; 93005; 96360; 99285

== ENCOUNTER 2023-09-19 01:50 | Inpatient (IN) | payer OTHER, SELFPAY ==
[2023-09-19] VITALS (22 sets, daily range): BP systolic 79–132; BP diastolic 45–78; PULSE 63–133; RESP 20–29; TEMP 36.2–36.9; O2SAT 89–99; BMI 18.6; BMI 21.0
--- NOTE | 2023-09-19 01:50 | XR_ITS ---
PROCEDURE INFORMATION: Exam: XR Chest Exam date and time: 09/19/2023 2:16 AM Age: 57 years old Clinical indication: Condition or disease; Lung condition and disease; Copd; With exacerbation; Shortness of breath; Additional info: SOA, copd exacerbation TECHNIQUE: Imaging protocol: Radiologic exam of the chest. Views: 1 view. COMPARISON: CR XR CHEST PORTABLE 08/15/2023 2:59 PM FINDINGS: Lungs: Parenchymal consolidation in the medial right lung base concerning for infection. There is coarsening of the bronchovascular markings. Pleural spaces: No evidence of pleural effusion, pneumothorax, or pleural thickening in the visualized pleural spaces. Heart/Mediastinum: Stable heart Bones/joints: No evidence of acute osseous abnormalities within the visualized portions of the thoracic spine and ribs. Osseous structures appear appropriate for patient age. IMPRESSION: Parenchymal consolidation in the medial right lung base concerning for infection.
--- NOTE | 2023-09-19 01:57 | HMH.EDGENADL ---
Discharge Plan Disposition Patient Disposition: Admitted Chief Complaint: Shortness of Breath/Dyspnea Prescriptions Prescriptions: No Action omeprazole 40 mg capsule,delayed release(DR/EC) 40 mg PO DAILY ipratropium-albuterol 0.5 mg-3 mg(2.5 mg base)/3 mL solution for nebulization 3 ml inhalation cefdinir 300 mg capsule 300 mg PO BID Qty: 14 0RF clonazepam 0.5 mg tablet 0.5 mg PO QID Qty: 120 0RF gabapentin 600 mg tablet 600 mg PO TID Qty: 90 0RF estradiol 1 mg tablet See Rx Instructions .ROUTE .COMPLEX Qty: 30 0RF Dose Instruction: TAKE ONE TABLET BY MOUTH ONCE A DAY Rx Instructions: TAKE ONE TABLET BY MOUTH ONCE A DAY Trelegy Ellipta 100-62.5-25 mcg blister with device See Rx Instructions .ROUTE .COMPLEX Qty: 60 2RF Dose Instruction: INHALE 1 PUFF BY MOUTH ONCE A DAY Rx Instructions: INHALE 1 PUFF BY MOUTH ONCE A DAY albuterol sulfate 90 mcg/actuation HFA aerosol inhaler See Rx Instructions .ROUTE .COMPLEX Qty: 8.5 0RF Dose Instruction: INHALE 2 PUFFS BY MOUTH EVERY 6 HOURS Rx Instructions: INHALE 2 PUFFS BY MOUTH EVERY 6 HOURS furosemide 20 mg tablet See Rx Instructions .ROUTE .COMPLEX Qty: 30 0RF Dose Instruction: TAKE ONE TABLET BY MOUTH ONCE A DAY Rx Instructions: TAKE ONE TABLET BY MOUTH ONCE A DAY escitalopram oxalate 20 mg tablet See Rx Instructions .ROUTE .COMPLEX Qty: 30 0RF Dose Instruction: TAKE ONE TABLET BY MOUTH ONCE A DAY Rx Instructions: TAKE ONE TABLET BY MOUTH ONCE A DAY tizanidine 4 mg tablet See Rx Instructions .ROUTE .COMPLEX Qty: 90 0RF Dose Instruction: TAKE ONE TABLET BY MOUTH EVERY 8 HOURS NEEDED FOR MUSCLE SPASTICITY Rx Instructions: TAKE ONE TABLET BY MOUTH EVERY 8 HOURS NEEDED FOR MUSCLE SPASTICITY promethazine 25 mg tablet See Rx Instructions .ROUTE .COMPLEX Qty: 30 0RF Dose Instruction: TAKE ONE TABLET BY MOUTH EVERY 8 HOURS NEEDED FOR NAUSEA/VOMITING Rx Instructions: TAKE ONE TABLET BY MOUTH EVERY 8 HOURS NEEDED FOR NAUSEA/VOMITING benzonatate 200 mg capsule See Rx Instructions .ROUTE .COMPLEX Qty: 12 0RF Dose Instruction: TAKE ONE CAPSULE BY MOUTH 3 TIMES A DAY NEEDED FOR COUGH Rx Instructions: TAKE ONE CAPSULE BY MOUTH 3 TIMES A DAY NEEDED FOR COUGH clopidogrel 75 mg tablet 75 mg PO DAILY aspirin 81 mg tablet,delayed release (DR/EC) 81 mg PO DAILY risperidone 2 mg tablet 2 mg PO DAILY ferrous sulfate [FeroSul] 325 mg (65 mg iron) tablet 325 mg PO DAILY folic acid 1 mg tablet 1 mg PO DAILY buprenorphine-naloxone 8-2 mg tablet, sublingual 2 tab SUBLINGUAL DAILY rosuvastatin 5 mg tablet 5 mg PO DAILY Clinical Impressions Clinical Impression: Acute exacerbation of chronic obstructive pulmonary disease, Acute hyponatremia, Acute hypokalemia Pneumonia Qualifiers: Pneumonia type: due to unspecified organism Laterality: right Lung location: unspecified part of lung Qualified Code(s): J18.9 - Pneumonia, unspecified organism Respiratory failure Qualifiers: Chronicity: acute on chronic Respiratory failure complication: hypoxia Qualified Code(s): J96.21 - Acute and chronic respiratory failure with hypoxia Discharge ED Provider: Brennon Pulido General Adult HPI General Chief complaint: Shortness of Breath/Dyspnea Stated complaint: Short of breath Time Seen by Provider: 09/19/23 01:55 Mode of Arrival: EMS Source of Information: Patient Limitations: No Limitations Description of Symptoms (Recalled from ER Triage Doc. by RN): pt reports increase SOA since this past am, reports cough with sputum production and some cp History of Present Illness HPI narrative: 57-year-old female, extensive past medical history as reported below, specifically including COPD and polysubstance abuse, presents with shortness of breath from home. Per EMS report,
--- NOTE | 2023-09-19 01:58 | ECG_ITS ---
APPROVED REPORT Exam: Resting ECG HR:116 bpm ECG Measurements Heart Rate 116 AXES [place] 152 P 71 QRSd 98 QRS 70 QT 361 T 70 QTc 430 Conclusion SINUS TACHYCARDIA POSSIBLE RIGHT ATRIAL ENLARGEMENT [0.25mV P-WAVE] POSSIBLE LEFT ATRIAL ENLARGEMENT [-0.1mV P-WAVE IN V1/V2] NONSPECIFIC ST & T-WAVE ABNORMALITY ABNORMAL RHYTHM ECG UNCONFIRMED REPORT Electronically signed by : Evaristo Gonzalez MD 09/19/2023 10:08:31
[2023-09-19 02:03] LABS: VBG Base Excess -8.4 mmol/L (-2.4-2.3); VBG HCO3 18.8 mmol/L (23-30); VBG Oxygen Saturation 94.2 % (50-70); VBG PCO2 43.8 mmol/L (35-51); VBG PH 7.25 mmol/L (7.31-7.41); VBG PO2 73.1 mmol/L (28-40); VBG Total CO2 20.2 mmol/L (23-27)
[2023-09-19 02:05] LABS: Basophils % 0.2 % (0.1-2.0); Eosinophils # 0.1 K/mm3 (0.0-0.4); Eosinophils % 1.1 % (0.1-12.0); Hematocrit 38.2 % (37.0-47.0); Hemoglobin 13.2 g/dL (12.2-16.2); Lymphocytes # 1.3 K/mm3 (0.7-4.5); Lymphocytes % 11.7 % (10-50); Mean Corpuscular HGB Conc 34.6 g/dL (31.8-35.4); Mean Corpuscular Hemoglobin 31.1 pg (27.0-31.2); Mean Corpuscular Volume 89.8 fl (81-99); Mean Platelet Volume 8.2 fl (7.4-10.4); Monocytes # 0.4 K/mm3 (0.1-1.0); Monocytes % 3.9 % (1.7-9.3); Neutrophils # 9.2 K/mm3 (1.8-7.8); Neutrophils % 83.2 % (37.0-80.0); Platelet Count 226 K/mm3 (142-424); Red Blood Count 4.26 M/mm3 (4.20-5.40); White Blood Count 11.1 K/mm3 (4.8-10.8)
[2023-09-19 02:06] LABS: Alanine Aminotransferase 19 U/L (12-78); Albumin Level 3.8 g/dl (3.5-5.0); Albumin/Globulin Ratio 1.2 (1.1-1.8); Alkaline Phosphatase 73 U/L (38-126); Aspartate Amino Transferase 24 U/L (14-36); Blood Urea Nitrogen 15 mg/dl (7-17); Calcium 8.1 mg/dl (8.4-10.2); Carbon Dioxide 18 mmol/L (22.0-30.0); Creatinine Clearance Estimated 31 mL/min (50-200); Estimated Glomerular Filt Rate 36 ml/min (>60); GFR (African American) 43 ML/MIN (>60); Globulin 3.2 g/dL (1.3-3.2); Glucose 121 mg/dl (74-100); Sodium 120 mmol/L (136-145)
[2023-09-19 02:19] LABS: Anion Gap 16.7 mEq/L (5-15); Bilirubin,Total 0.1 mg/dl (0.2-1.3); Chloride 88 mmol/L (98-107); Troponin I < 0.01 ng/ml (0.00-0.034)
[2023-09-19 02:20] LABS: Potassium 2.7 mmoL/L (3.5-5.1)
--- NOTE | 2023-09-19 02:20 | PC.NURSE ---
Misa from lab called with a Critical lab value for Potassium of 2.7. RN and MD notified. DENG
[2023-09-19 02:22] LABS: Acetaminophen < 10 ug/ml (10-30); Salicylate < 1.0 mg/dL (2.0-20.0)
[2023-09-19 03:33] LABS: Microscopic, Urine URINE MICROSCOPIC (MICROSCOPIC)
--- NOTE | 2023-09-19 03:33 | PC.NURSE ---
on phone with hospitalist
--- NOTE | 2023-09-19 03:37 | PC.NURSE ---
powerhouse attendant called for admission.
--- NOTE | 2023-09-19 03:38 | PC.NURSE ---
Admitting notified of acute admission to hospitalist, room 213 for COPD and Pneumonia
--- NOTE | 2023-09-19 03:39 | PC.NURSE ---
Thong De La Rosa RN giving report to Thong Porras RN at this time
--- NOTE | 2023-09-19 03:40 | PC.NURSE ---
suboxone in purse in pt bag in room. Dentures in pt bag in room. Pt had incontinent BM upon arrival to ED. Stool brownish/reddish tent. MD aware. Not concerned at this time. Pt had staff throw away underwear and leggings. Pt cleaned up and placed in brief.
--- NOTE | 2023-09-19 03:42 | PC.NURSE ---
notified [facility] that pt is ready for transport to [facility] .
[2023-09-19 03:44] LABS: Appearance,Urine CLEAR (Clear); Bilirubin,Urine Negative (Negative); Blood, Urine Negative (Negative); Color,Urine YELLOW (Yellow); Glucose,Urine (UA) Negative (Negative); Ketones,Urine Negative (Negative); Leukocyte Esterase,Urine Negative (Negative); Nitrate,Urine Negative (Negative); Protein,Urine Negative (Negative); Specific Gravity, Urine <= 1.005 (1.005-1.030); Urobilinogen,Urine 0.2 EU/dl (0.2)
[2023-09-19 03:46] LABS: Amphetamine/Metha Screen,Urine Negative ng/ml (<1000); Barbiturates Screen,Urine Negative ng/ml (<200)
[2023-09-19 03:47] LABS: Cannabinoid Screen,Urine Positive ng/ml (<50)
[2023-09-19 03:48] LABS: Benzodiazepines Screen,Urine Negative ng/ml (<200); Methadone Screen,Urine Negative ng/ml (<300)
[2023-09-19 03:49] LABS: Cocaine Screen,Urine Negative ng/ml (<300); Phencyclidine Screen,Urine Negative ng/ml (<25)
[2023-09-19 03:50] LABS: Lactic Acid 3.4 mmol/L (0.7-2.1)
[2023-09-19 03:50] LABS: Opiate Screen,Urine Negative ng/ml (<300)
--- NOTE | 2023-09-19 03:54 | PC.NURSE ---
pt to floor via stretcher at this time
--- NOTE | 2023-09-19 03:58 | EXP.HP ---
History of Present Illness *Admission Date: 09/19/23 *Reason for visit:: pneumonia *History of present illness: 57-year-old female presented to ED for SOB via ems. PMHX COPD, CKD, HTN, CAD, HLD, anxiety and polysubstance abuse. Per EMS report, patient was found to be satting in the low 80s on home nasal cannula on arrival patient was given DuoNebs in route. Patient had decreased responsiveness when EMS arrived to her home. Patient was reportedly found surrounded by her prescription medications, they were in some disarray. Patient continues to smoke. Patient is frequently seen for COPD exacerbations. Patient also has history of drug use, is also on prescription benzos, gabapentin, buprenorphine. Patient denies additional drug use currently, denies any attempted overdose. Her Chest xray reveals pneumonia in the right lung base. She as an HUGO with a potassium of 2.7 and sodium of 120. She was started on IV Rocephin, magnesium, and potassium. She is also currently on BIPAP. The ED physicain consulted the hospitalist team for further medical management. The pt arrives to the medical floor still on BIPAP. She has bilateral wheezing. She will additional receive azithromycin. She is a very poor historian and will not interact with me for admission. She is responsive to voice and pain. [facility] Disclaimer: The information contained in this section may have been updated after the patient was seen, as this information can be updated by other users. 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 (Updated 09/19/23 @ 11:15 by Kraig Orourke MD) Abnormal ECG Acute respiratory failure with hypoxia Anemia Anxiety Anxiety disorder Aortic regurgitation Apnea Back Pain Bronchiectasis without acute exacerbation CAD (coronary artery disease) Carotid artery disease without cerebral infarction Cervical radiculopathy Cervical spondylosis with radiculopathy Chronic headaches Chronic pain Congestive heart failure COPD (chronic obstructive pulmonary disease) Coronary artery disease COVID-19 Depression Diastolic congestive heart failure Elevated erythrocyte sedimentation rate Exacerbation of bronchiectasis due to infection Fatigue HCV (hepatitis C virus) History of intravenous drug use in remission Hoarseness Hyperlipidemia Insomnia Lipoma of abdominal wall LVH (left ventricular hypertrophy) Osteopenia Osteoporosis Osteoporosis without current pathological fracture Pneumonia Polysubstance abuse TOMY (renal artery stenosis) Renal insufficiency Severe aortic regurgitation Severe sepsis with acute organ dysfunction Skin abscess Syncope and collapse Tobacco abuse Unstable angina Surgical History History of arthroscopic knee surgery History of breast biopsy History of cancer surgery History of cardiac cath History of carpal tunnel release History of section History of colonoscopy History of coronary artery stent placement History of hernia repair History of hysterectomy History of ureter stent Hx of cholecystectomy Family History Other Family history of COPD (chronic obstructive pulmonary disease) Family history of anemia Family history of hyperlipidemia Family history of hypertension Social History (Updated 09/19/23 @ 04:57 by Denise Porras RN) Smoking Status: Current every day smoker tobacco type: cigarettes packs per day: 1 second hand exposure: No alcohol intake: never substance use type: painkillers current occupational status: disabled Travel in the last 8 weeks: None household members: friend(s) housing: house marital status: current occupational exposures/hazards: No caffeine: Yes Review of Systems Review of Systems Review of systems:: unable to obtain Meds Home Medications and Allergies Home Medications Medication Instructions Recorded Confirmed Type aspirin 81 mg tablet,delayed 81 mg
--- NOTE | 2023-09-19 04:57 | PC.NURSE ---
Patient is confused at this time and unable to complete medication reconciliation with RN.
[2023-09-19 05:40] LABS: Reflex Lactic Add Lactic Reflex
--- NOTE | 2023-09-19 06:01 | PC.NURSE ---
Since arriving to floor patient remains confused and unable to answer questions appropriately. Patient is wearing bi-pap with sats 97%. Scattered bruising to bilateral arms. Home meds counted with RN's on floor and placed in med merchandising internship patient's room.
[2023-09-19 06:35] LABS: Basophils % 0.1 % (0.1-2.0); Eosinophils % 0.4 % (0.1-12.0); Hematocrit 33.6 % (37.0-47.0); Lymphocytes # 0.2 K/mm3 (0.7-4.5); Mean Corpuscular Hemoglobin 31.3 pg (27.0-31.2); Mean Corpuscular Volume 89.4 fl (81-99); Mean Platelet Volume 8.1 fl (7.4-10.4); Monocytes # 0.3 K/mm3 (0.1-1.0); Monocytes % 7.3 % (1.7-9.3); Neutrophils # 3.5 K/mm3 (1.8-7.8); Neutrophils % 86.2 % (37.0-80.0); Platelet Count 181 K/mm3 (142-424); Red Blood Count 3.76 M/mm3 (4.20-5.40); White Blood Count 4.1 K/mm3 (4.8-10.8)
[2023-09-19 06:37] LABS: Chloride 95 mmol/L (98-107); Sodium 121 mmol/L (136-145)
[2023-09-19 06:38] LABS: Potassium 3.1 mmoL/L (3.5-5.1)
[2023-09-19 06:39] LABS: Lactic Acid Follow Up (RFLX 1) 2.6 mmol/L (0.7-2.1)
[2023-09-19 06:41] LABS: Anion Gap 11.1 mEq/L (5-15); Blood Urea Nitrogen 14 mg/dl (7-17); Calcium 7.3 mg/dl (8.4-10.2); Carbon Dioxide 18 mmol/L (22.0-30.0); Creatinine Clearance Estimated 37 mL/min (50-200); Estimated Glomerular Filt Rate 39 ml/min (>60); GFR (African American) 47 ML/MIN (>60); Glucose 116 mg/dl (74-100)
[2023-09-19 06:55] LABS: Hemoglobin 11.7 g/dL (12.2-16.2); MANUAL DIFFERENTIAL MANUAL DIFFERENTIAL (MANUAL DIFF)
[2023-09-19 07:10] LABS: Troponin I < 0.01 ng/ml (0.00-0.034)
[2023-09-19 07:34] LABS: Lymphocytes % 3 % (10-50); Monocytes % 7 % (2-9); Neutrophils % 76 % (42-76); Total Cells Counted 100
[2023-09-19 07:35] LABS: RBC Morphology Normal
[2023-09-19 07:36] LABS: Platelet Estimate Slight Decrease
[2023-09-19 08:19] LABS: Reflex Lactic (2 hrs) Add Lactic Reflex
--- NOTE | 2023-09-19 08:23 | HMH.PHAINT1 ---
Pharmacy Intervention Comments: MEDICATION RECONCILIATION COMPLETED ON PATIENT USING EXTERNAL FILL HISTORY FROM PHARMACY. -RADHA COLLINS, SARITHAD
[2023-09-19 08:27] LABS: ABG Base Excess -8.2 mmol/L (-2.4-2.3); ABG HCO3 18.2 mmhg (22.0-26.0); ABG Oxygen Saturation 98 % (90-100); ABG PCO2 37.8 mmhg (35.0-45.0); ABG PO2 106.6 mmhg (80-100); ABG TCO2 19.4 mmhg (23-27)
[2023-09-19 08:30] LABS: Allen's Test ACCEPTABLE; Oxygen 45% %; Source R RADIAL; Tidal Volume 14/6
--- NOTE | 2023-09-19 09:33 | EXP.PULM.CON ---
History of Present Illness History of present illness: Ms. Rush is a 57-year-old female history of COPD, bronchiectasis, recurrent pneumonias with multidrug-resistant organisms previously seen in pulmonary clinic in April 2023 presented to the hospital presented to the hospital with worsening respiratory distress and hypoxia needing increasing oxygen supplementation pulmonary was called for further evaluation and management. [facility] Disclaimer: The information contained in this section may have been updated after the patient was seen, as this information can be updated by other users. 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 (Updated 09/19/23 @ 11:15 by Kraig Orourke MD) Abnormal ECG Acute respiratory failure with hypoxia Anemia Anxiety Anxiety disorder Aortic regurgitation Apnea Back Pain Bronchiectasis without acute exacerbation CAD (coronary artery disease) Carotid artery disease without cerebral infarction Cervical radiculopathy Cervical spondylosis with radiculopathy Chronic headaches Chronic pain Congestive heart failure COPD (chronic obstructive pulmonary disease) Coronary artery disease COVID-19 Depression Diastolic congestive heart failure Elevated erythrocyte sedimentation rate Exacerbation of bronchiectasis due to infection Fatigue HCV (hepatitis C virus) History of intravenous drug use in remission Hoarseness Hyperlipidemia Insomnia Lipoma of abdominal wall LVH (left ventricular hypertrophy) Osteopenia Osteoporosis Osteoporosis without current pathological fracture Pneumonia Polysubstance abuse TOMY (renal artery stenosis) Renal insufficiency Severe aortic regurgitation Severe sepsis with acute organ dysfunction Skin abscess Syncope and collapse Tobacco abuse Unstable angina Surgical History History of arthroscopic knee surgery History of breast biopsy History of cancer surgery History of cardiac cath History of carpal tunnel release History of section History of colonoscopy History of coronary artery stent placement History of hernia repair History of hysterectomy History of ureter stent Hx of cholecystectomy Family History Other Family history of COPD (chronic obstructive pulmonary disease) Family history of anemia Family history of hyperlipidemia Family history of hypertension Social History (Updated 09/19/23 @ 04:57 by Denise Porras RN) Smoking Status: Current every day smoker tobacco type: cigarettes packs per day: 1 second hand exposure: No alcohol intake: never substance use type: painkillers current occupational status: disabled Travel in the last 8 weeks: None household members: friend(s) housing: house marital status: current occupational exposures/hazards: No caffeine: Yes Review of Systems Constitutional Constitutional: Reports anorexia, Reports body ache(s) and Reports fatigue Eyes Eyes: Denies eye discharge, Denies dry eyes, Denies irritation and Denies itchy eyes ENT Ears, Nose, Mouth, and Throat: Denies epistaxis, Denies facial pain, Denies lip swelling and Denies throat swelling *Cardiovascular Cardiovascular: Reports dyspnea and Reports dyspnea on exertion *Respiratory Respiratory: Reports chest congestion, Reports cough, Reports dyspnea, Reports dyspnea on exertion, Reports excessive phlegm production, Denies hemoptysis, Denies pain on inspiration and Reports wheezing *Gastrointestinal Gastrointestinal: Denies abdominal pain, Denies belching and Denies cramping *Musculoskeletal Musculoskeletal: Reports back pain, Reports myalgias and Reports other (No small joint swelling or Pain) Psychiatric Psychiatric: Denies homicidal ideation and Denies suicidal ideation Endocrine Endocrine: Reports fatigue and Denies heat intolerance Hematologic/Lymphatic Hematologic/Lymphatic: Denies easy bleeding and Denies lymphadenopathy Allergic/Immunologic
--- NOTE | 2023-09-19 10:09 | CT_ITS ---
FINAL REPORT CLINICAL HISTORY: [facility] COMPARISON: 07/23/2023 FINDINGS: Axial images of the head were obtained without contrast. Coronal reformatted images were also obtained.This study was performed with techniques to keep radiation doses as low as reasonably achievable (ALARA). Individualized dose reduction techniques using automated exposure control or adjustment of mA and/or kV according to the patient''s size were employed. There is no evidence of intracranial hemorrhage or mass. The ventricular size is within normal limits. There is no evidence of shift of the midline structures. No abnormal extra axial fluid collection is identified. No skull abnormality is seen on the bone window images. IMPRESSION: No acute intracranial abnormality. Reviewed, Interpreted and Dictated by Edward Espinoza III, MD Transcribed by Silvia Alford Authenticated and [facility]
--- NOTE | 2023-09-19 11:07 | PC.NURSE ---
RT removed bipap around 1000. pt currently on 3l nc, alert to self, pt states im stating to go back to my normal self
[2023-09-19 11:32] LABS: Coronavirus 19, PCR Not Detected (NotDetected); Influenza A, PCR Not Detected (NotDetected); Influenza B, PCR Not Detected (NotDetected)
--- NOTE | 2023-09-19 11:48 | HMH.ITSTN ---
When order was first put in it was a with study. Called nurse because GFR was low and patient needed bolus of fluids. They were to call when patient was ready. It was then later changed to without scan and we went to get patient
--- NOTE | 2023-09-19 13:27 | DIET.NUTRFU ---
RD consulted for low seymour score, ranging between 13-20 dependent on nutrition status. At home patient reports good appetite with some weight gain this admit. Today's meal intake for lunch was poor at 25%. Upon interview she had a hard time answering questions d/t SOB and coughing secondary to PNA and COPD. Previous admit 11/29/2022 patient was evaluated by CLIENT RELATIONSHIP MANAGER and recommended MSOFT with no straws. RD asked patient if she practices at home and wanted diet changed during stay and she said yes. Updated ordered and notified kitchen. Also started her on ensure daily to help with calorie intake until appetite improves. She denies any N/V even though had a basin on bedside table. Did c/o diarrhea, noted upon admit. Will continue to monitor po intake during stay.
--- NOTE | 2023-09-19 15:25 | PC.NURSE ---
pt on 3l nc w/ audible wheezes when ambulating. on initial assessment pt could notn even state name. 1500 assessment pt able to identify, name, birthday, place, and year. pt states she does not remember anything leading up to coming to the hospital. bed alarm on for pt safety as pt is very unsteady on feet. educated the need to use call light before getting out of bed. 1530: pt bed alarm went off, pt had to use the br, pt requesting gabapentin. pt still very drowsy, slurred speech, not fully alert, and can barley keep eyes open. pt has slept most of shift.
[2023-09-20] VITALS (7 sets, daily range): BP systolic 103–121; BP diastolic 58–69; PULSE 66–116; RESP 22–24; TEMP 36.7–36.9; O2SAT 4–99; BMI 20.3
--- NOTE | 2023-09-20 08:15 | PC.NURSE ---
TECH NOTE; NOTIFIED NURSE OF HIGH HEART RATE FOR 0800 VITAL SIGNS Marian MEDINA, SRNA
--- NOTE | 2023-09-20 09:34 | EXP.PULM.PN ---
Subjective *Date: 09/20/23 *Time: 10:37 Interval history: No acute respiratory vents overnight. Patient admits continued improvement in her respiratory symptoms. Pulmonology Exam Inpatient Vital signs and Labs for Last 24 Hours: Temp Pulse Resp BP Pulse Ox O2 Del Method O2 Flow Rate 98.1 F 116 H 24 121/69 97 Nasal Cannula 4 09/20/23 08:00 09/20/23 08:00 09/20/23 08:00 09/20/23 08:00 09/20/23 08:00 09/20/23 08:00 09/20/23 08:00 FiO2 45 09/19/23 06:05 Laboratory Results - last 24 hr 09/19/23 11:20: SARS-CoV-2 (PCR) Not detected, Influenza A Untype (PCR) Not detected, Influenza Type B (PCR) Not detected I & O for Labs for Last 24 Hours: Intake & Output 09/17/23 09/18/23 09/19/23 09/20/23 23:59 23:59 23:59 23:59 Intake Total 240 / 765 885 / 885 Output Total 0 / 0 0 / 0 Balance 240 / 765 885 / 885 Weight 114 lb 4.955 oz 110 lb 8 oz Constitutional: Present severe distress Head: Present normocephalic and atraumatic ENT: Present normal exam, normal oropharynx and mucous membranes moist Neck: Present normal inspection and full ROM Respiratory: Present prolonged expiratory phase and rhonchi; Absent accessory muscle use, respiratory distress, wheezes, diminished air movement, normal respiratory effort or able to speak in complete sentences Cardiac: Present S1/S2, Tachycardia and radial pulses present GI: Present soft and distention; Absent tenderness or guarding Rectal (female): Present deferred (female): Present deferred Skin: Present intact; Absent cyanosis or jaundice Neuro: Present alert, awake and oriented x 3 Extremities: Present normal inspection; Absent clubbing or cyanosis Psychiatric: Present normal affect and cooperative Assessment and Plan *Assessment and plan (1) Acute exacerbation of chronic obstructive pulmonary disease: Status: Acute Category: Medical Code(s): J44.1 - Chronic obstructive pulmonary disease with (acute) exacerbation (2) Pneumonia: Status: Acute Qualifiers: Laterality: right Lung location: unspecified part of lung Pneumonia type: due to unspecified organism Qualified Code(s): J18.9 - Pneumonia, unspecified organism Category: Medical Code(s): J18.9 - Pneumonia, unspecified organism (3) Acute respiratory failure with hypoxia: Status: Acute Category: Medical Code(s): J96.01 - Acute respiratory failure with hypoxia Plan Ms. Rush is a 57-year-old female history of COPD, bronchiectasis, recurrent pneumonias with multidrug-resistant organisms previously seen in pulmonary clinic in April 2023 presented to the hospital presented to the hospital with worsening respiratory distress and hypoxia needing increasing oxygen supplementation pulmonary was called for further evaluation and management. Afebrile. Neutrophilic leukocytosis upon admission. ABG and VBG from admission did not show any evidence of hypercarbic respiratory failure. Noted to have metabolic acidosis. HUGO on CKD noted. Chest x-ray upon admission include interstitial markings in bilateral lower lobes, along with consolidation in right lower lobe medial segment noted. On admission - Auscultation bilateral diffuse rhonchi and wheezing. Increasing sputum production with increasing oxygen requirements, now needing 4 to 6 L nasal open supplementation to maintain O2 saturation below 90% level. Patient on examination today lethargic however awake alert and following commands Interval update: No acute respiratory vents overnight. Sputum cultures pending. Improving oxygen, weaned to 2 L Saturations maintained at 92% and above She continued to receive ceftriaxone azithromycin but steroids were discontinued. Auscultation showed significant improvement. Plan: Continue current antibiotics including ceftriaxone azithromycin, can be discharged home on cefdinir to complete a total of 5-day course DuoNebs every 6 hours on a scheduled basis and Pulmicort ca
[2023-09-20 10:06] LABS: Chloride 109 mmol/L (98-107); Potassium 3.1 mmoL/L (3.5-5.1); Sodium 138 mmol/L (136-145)
[2023-09-20 10:09] LABS: Anion Gap 11.1 mEq/L (5-15); Blood Urea Nitrogen 21 mg/dl (7-17); Carbon Dioxide 21 mmol/L (22.0-30.0); Creatinine Clearance Estimated 36 mL/min (50-200); Estimated Glomerular Filt Rate 39 ml/min (>60); GFR (African American) 47 ML/MIN (>60)
[2023-09-20 10:10] LABS: Calcium 7.6 mg/dl (8.4-10.2); Glucose 126 mg/dl (74-100)
--- NOTE | 2023-09-20 12:27 | PC.NURSE ---
Patient increasingly agitated and states she wants to leave. On 1L O2. Patient encouraged to wear oxygen on the way home but refuses to wait for portable. States understanding of importance of wearing oxygen and keeping followup appointments
--- NOTE | 2023-09-20 13:04 | HMH.PHAINT1 ---
Pharmacy Intervention Comments: DISCHARGE MEDICATION COUNSELING PROVIDED. DISCUSSED STARTING THE FOLLOWING: -CEFUROXIME (ANTIBIOTIC, EVERY 12 HOURS, TAKE WITH FOOD, N/V/D POSSIBLE) -PREDNISONE (STEROID, DAILY, TAKE WITH FOOD, TAKE IN THE MORNING, INSOMNIA, N/V, ELEVATED BLOOD SUGAR POSSIBLE) PATIENT VERBALIZED NO QUESTIONS AT THIS TIME.
--- NOTE | 2023-09-22 19:37 | EXP.DC.SUM ---
General Admission date:: 09/19/23 Discharge date: 09/20/23 HPI HPI HPI: 57-year-old female presented to ED for SOB via ems. PMHX COPD, CKD, HTN, CAD, HLD, anxiety and polysubstance abuse. Per EMS report, patient was found to be satting in the low 80s on home nasal cannula on arrival patient was given DuoNebs in route. Patient had decreased responsiveness when EMS arrived to her home. Patient was reportedly found surrounded by her prescription medications, they were in some disarray. Patient continues to smoke. Patient is frequently seen for COPD exacerbations. Patient also has history of drug use, is also on prescription benzos, gabapentin, buprenorphine. Patient denies additional drug use currently, denies any attempted overdose. Her Chest xray reveals pneumonia in the right lung base. She as an HUGO with a potassium of 2.7 and sodium of 120. She was started on IV Rocephin, magnesium, and potassium. She is also currently on BIPAP. The ED physicain consulted the hospitalist team for further medical management. The pt arrives to the medical floor still on BIPAP. She has bilateral wheezing. She will additional receive azithromycin. She is a very poor historian and will not interact with me for admission. She is responsive to voice and pain. Hospital Course Hospital Course Hospital Course: 57-year-old female presented to ED for SOB via ems. PMHX COPD, CKD, HTN, CAD, HLD, anxiety and polysubstance abuse. Per EMS report, patient was found to be satting in the low 80s on home nasal cannula on arrival patient was given DuoNebs in route. Patient had decreased responsiveness when EMS arrived to her home. Patient was reportedly found surrounded by her prescription medications, they were in some disarray. Patient continues to smoke. Patient is frequently seen for COPD exacerbations. Patient also has history of drug use, is also on prescription benzos, gabapentin, buprenorphine. Patient denies additional drug use currently, denies any attempted overdose. Her Chest xray reveals pneumonia in the right lung base. She as an HUGO with a potassium of 2.7 and sodium of 120. She was started on IV Rocephin, magnesium, and potassium. She is also currently on BIPAP. The ED physicain consulted the hospitalist team for further medical management. The pt arrives to the medical floor still on BIPAP. She has bilateral wheezing. She will additional receive azithromycin. She is a very poor historian and will not interact with me for admission. She is responsive to voice and pain. plan as to follow: PNEUMONIA COPD EXACERBATION - Improved, ok to dc per pulmonary, prescriptions sent, patient is stable for discharge HUGO - stable CKD HYPONATREMIA - improved HYPOKALEMIA - improved HTN CAD HLD Exam Data for Last 24 hours Vital signs and Labs for Last 24 Hours: Temp Pulse Resp BP Pulse Ox O2 Del Method O2 Flow Rate 98.5 F 87 24 110/58 L 97 Nasal Cannula 1 09/20/23 12:00 09/20/23 12:00 09/20/23 12:00 09/20/23 12:00 09/20/23 12:00 09/20/23 12:00 09/20/23 12:00 FiO2 45 09/19/23 06:05 I & O for Last 24 hours: Intake & Output 09/19/23 09/20/23 09/21/23 09/22/23 23:59 23:59 23:59 23:59 Intake Total 240 / 765 1165 / 1165 Output Total 0 / 0 0 / 0 Balance 240 / 765 1165 / 1165 Weight 51.85 kg 50.122 kg DS: Diagnosis Discharge Diagnosis (1) Acute exacerbation of chronic obstructive pulmonary disease: Status: Acute Code(s): J44.1 - Chronic obstructive pulmonary disease with (acute) exacerbation (2) Pneumonia: Status: Acute Code(s): J18.9 - Pneumonia, unspecified organism Qualifiers: Laterality: right Lung location: unspecified part of lung Pneumonia type: due to unspecified organism Qualified Code(s): J18.9 - Pneumonia, unspecified organism (3) Acute respiratory failure with hypoxia: Status: Acute Code(s): J96.01 - Acute respiratory failure with hypoxia Meds
--- NOTE | 2023-09-23 11:01 | CARE MANAGER ---
Contacted patient related to hospital discharge. Patient is doing better. She picked up medications and is aware of follow up appointment. YULISSA Cortes
== END 2023-09-20 12:44 | disposition home or self-care (01) | DRG 193 ==
LOC: ER 02:43 → 2ND 03:49
PROVIDERS: Nurse Practitioner Critical Care Medicine; Admitting Provider Internal Medicine; Emergency Provider Emergency Medicine; PCP Emergency Medicine; Visit Provider Internal Medicine
DX: J18.9 Pneumonia, unspecified organism (principal); J96.01 Acute respiratory failure with hypoxia; J44.1 Chronic obstructive pulmonary disease with (acute) exacerbation; E87.1 Hypo-osmolality and hyponatremia; J44.0 Chronic obstructive pulmonary disease with (acute) lower respiratory infection; N17.9 Acute kidney failure, unspecified; I50.32 Chronic diastolic (congestive) heart failure; Z79.899 Other long term (current) drug therapy; I25.10 Atherosclerotic heart disease of native coronary artery without angina pectoris; I35.1 Nonrheumatic aortic (valve) insufficiency; B19.20 Unspecified viral hepatitis C without hepatic coma; F41.1 Generalized anxiety disorder; E78.5 Hyperlipidemia, unspecified; M81.0 Age-related osteoporosis without current pathological fracture; I70.1 Atherosclerosis of renal artery; F17.210 Nicotine dependence, cigarettes, uncomplicated; I12.9 Hypertensive chronic kidney disease with stage 1 through stage 4 chronic kidney disease, or unspecified chronic kidney disease; N18.9 Chronic kidney disease, unspecified; E87.6 Hypokalemia; F41.9 Anxiety disorder, unspecified; F19.91 Other psychoactive substance use, unspecified, in remission
CPT/HCPCS: 36415; 70450; 71045; 80048; 80053; 80305; 80329; 81001; 82803; 83605; 84484; 85007; 85025; 87040; 87070; 87205; 87636; 93005; 94640; 99291; J0456; J0696; J3475

== ENCOUNTER → 2023-10-01 12:43 | Outpatient (CLI) | payer OTHER, SELFPAY ==
--- NOTE | 2023-10-01 12:44 | CA_ITS ---
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, RCS, RVS Ht: 5 ft 2 in Wt: 109lbs BSA: 1.48 BP: 118/58 mmHg Indications: Severe Aortic insufficiency, CAD, COPD, smoker, HTN, HLD, H/o CHF, recent carbonmonoxide poisoning 2D Dimensions IVSd 0.85 cm LVEF (Visual) 66.50 % PWd 0.81 cm LVDd 4.64 cm LVDs 2.94 cm LVOT 1.67 cm (M/F) 1.5-2.5 M-Mode Dimensions RVDd 1.19 cm (0.9-2.6) LA Diam 2.89 cm (1.9-4.0) LVDd 4.94 cm (3.5-5.7) Ao Diam 2.48 cm (2.0-3.7) LVDs 3.46 cm (3.5-5.7) IVSd 0.81 cm (0.6-1.1) PWd 0.87 cm (0.6-1.1) EF (Teich) 57.00% EPSs 0.25 cm FS 30.00% EDV (Teich) 115.00 mL TAPSE 1.98 (<1.7) ESV (Teich) 49.50 mL LV Diastology E Decel Time 187.00 (160-240 msec) E/A Ratio 0.98 MED E' 10.00 (< 7 cm/sec) MED A' 8.40 cm/s E'/MED E' Ratio 10.15 (>14) LAT E' 7.80 (<10 cm/sec) LAT A' 8.60 cm/s E/LAT E' Ratio 13.01 (>14) Aortic Valve LVOT Max 163.00 (70-110 cm/s) LVOT VTI 34.82 cm AoV Peak Miko. 189.00 (50-130 cm/s) AI PHT 389.00 ms AO Peak GR. 14.30 mmHg AO Mean GR. 7.10 (<5 mmHg) AO VTI 37.88 (18-25 cm) JALEEL (VTI) 2.01 (2.5-4.5 cm2) Mitral Valve MV A Velocity 104.00 (40-130 cm/s) E/A Ratio 0.98 MV Decel. Time 187.00 (160-240 ms) MV Mean Gr. 1.50 (<2mmHg) Left Ventricle The left ventricle is normal size (IVSd=4.6 cm, IVSs=3.5 cm). The left ventricular systolic function is normal. The left ventricular ejection fraction is within the normal range. There is normal left ventricular wall thickness. There is normal LV segmental wall motion. The left ventricular diastolic function is normal. LVEF is 60%. Right Ventricle The right ventricle is normal size. The right ventricular systolic function is normal. Atria The left atrium size is normal. The right atrium size is normal. There is no Doppler evidence of interatrial shunt. Aortic Valve The aortic valve leaflets are thin and pliable. There is no aortic valvular stenosis. Moderate aortic regurgitation. VCW=0.5 cm. Central jet is 50% LVOT height. EXX=138 ms. Regurgitant volumei is 36 mL (LVOT diameter 2.2, LVOT VTI 35.8 cm, MV diameter is 2.5 cm, MV VTI 20.4 cm). The mechanism of AI is indeterminate on this study. Mitral Valve The mitral valve is normal in structure. No evidence of mitral valve stenosis. Trace mitral regurgitation. Tricuspid Valve The tricuspid valve leaflets are thin and pliable. Trace tricuspid regurgitation. There is insufficient TR jet to estimate RVSP. Pulmonic Valve The pulmonary valve is normal in structure. Trace pulmonic regurgitation. RVSP is normal. Great Vessels The aortic root is normal in size. The ascending aorta is not well visualized. IVC is normal in size and collapses >50% with inspiration. Pericardium There is no pericardial effusion. Other Information Study Quality: Fair Conclusion Normal biventricular systolic size and function. Preserved LVEDD=4.6 cm and LVESD=3.5 cm. Moderate aortic regurgitation. VCW=0.5 cm. Central jet is 50% LVOT height. ZHY=641 ms. Regurgitant volumei is 36 mL (LVOT diameter 2.2, LVOT VTI 35.8 cm, MV diameter is 2.5 cm, MV VTI 20.4 cm). The mechanism of AI is indeterminate on the study. Further evaluation of the severity of AI is recommended with cardiac MRI (aortic regurgitation protocol) to accurately estimate aortic valve regurgitant volume and rule out severe AI. Electronically signed by : Gisela Cohen MD 10/01/2023 23:19:41
--- NOTE | 2023-10-01 15:09 | MM_ITS ---
PROCEDURE INFORMATION: Exam: MG Bilateral Screening 3D Mammography Exam date and time: 10/01/2023 3:12 PM Age: 57 years old Clinical indication: Screening examination; No personal or family history of breast cancer TECHNIQUE: Imaging protocol: Bilateral Screening tomosynthesis and 2D mammography including computer-aided detection (CAD) when performed. COMPARISON: 1. MG MM DIG SCREENING MAMM BI W/CAD 01/18/2020 3:38 PM 2. MG SCBI MM Dig screening mamm BI w/CAD 12/03/2018 9:33 AM 3. MG DMSB DIG MAMM-SCREEN TRI 05/06/2014 3:50 PM FINDINGS: MAMMOGRAPHY: Breast composition: The breasts are heterogeneously dense, which may obscure small masses. Mass: No suspicious masses. Architectural distortion: No suspicious distortion. Calcifications: No suspicious calcifications. Asymmetric density: None. Skin thickening: None. Axillary adenopathy: None. IMPRESSION: No mammographic evidence of malignancy. Annual screening is recommended unless otherwise clinically indicated. ASSESSMENT: BI-RADS Category 1: Negative
--- NOTE | 2023-10-01 16:06 | HMH.ITSTN ---
went to get patient for xrays after abraham, pt is not in department , also called patient to see where she was located at so we can do the xrays
== END ==
LOC: RT 12:44
PROVIDERS: PCP Emergency Medicine; Visit Provider Internal Medicine
DX: I25.10 Atherosclerotic heart disease of native coronary artery without angina pectoris; I12.9 Hypertensive chronic kidney disease with stage 1 through stage 4 chronic kidney disease, or unspecified chronic kidney disease; I35.1 Nonrheumatic aortic (valve) insufficiency; R68.83 Chills (without fever); R55 Syncope and collapse; R11.0 Nausea; N18.9 Chronic kidney disease, unspecified; D50.9 Iron deficiency anemia, unspecified; E78.5 Hyperlipidemia, unspecified; J44.9 Chronic obstructive pulmonary disease, unspecified; Z72.0 Tobacco use; Z12.31 Encounter for screening mammogram for malignant neoplasm of breast
CPT/HCPCS: 77063; 77067; 93306

== ENCOUNTER → 2023-10-09 23:39 | Outpatient (CLI) | payer OTHER, SELFPAY ==
[2023-10-09 20:27] LABS: Barbiturates Screen,Urine Negative ng/ml (<200); Benzodiazepines Screen,Urine Positive ng/ml (<200)
[2023-10-09 20:28] LABS: Amphetamine/Metha Screen,Urine Negative ng/ml (<1000); Cannabinoid Screen,Urine Positive ng/ml (<50)
[2023-10-09 20:29] LABS: Cocaine Screen,Urine Negative ng/ml (<300)
[2023-10-09 20:30] LABS: Methadone Screen,Urine Negative ng/ml (<300); Opiate Screen,Urine Negative ng/ml (<300)
[2023-10-09 20:31] LABS: Phencyclidine Screen,Urine Negative ng/ml (<25)
== END ==
PROVIDERS: PCP Emergency Medicine; Visit Provider Emergency Medicine
DX: Z79.899 Other long term (current) drug therapy (principal)
CPT/HCPCS: 80305

== ENCOUNTER 2023-11-04 16:01 | Emergency (ER) | payer OTHER, SELFPAY ==
[2023-11-04] VITALS (14 sets, daily range): BP systolic 103–162; BP diastolic 71–95; PULSE 92–112; RESP 16–22; TEMP 36.6–36.8; O2SAT 88–98; BMI 17.9
--- NOTE | 2023-11-04 16:06 | ECG_ITS ---
APPROVED REPORT Exam: Resting ECG HR:107 bpm ECG Measurements Heart Rate 107 AXES WA 149 P 79 QRSd 90 QRS 75 QT 328 T 75 QTc 391 Conclusion SINUS TACHYCARDIA RIGHT ATRIAL ENLARGEMENT [0.3mV P-WAVE] POSSIBLE LEFT ATRIAL ENLARGEMENT [-0.1mV P-WAVE IN V1/V2] NONSPECIFIC T-WAVE ABNORMALITY ABNORMAL ECG UNCONFIRMED REPORT Electronically signed by : Evaristo Gonzalez MD 11/05/2023 10:18:33
--- NOTE | 2023-11-04 16:25 | XR_ITS ---
PROCEDURE INFORMATION: Exam: XR Chest Exam date and time: 11/04/2023 4:33 PM Age: 57 years old Clinical indication: Pain; Cough and other: Congestion; Left-sided; Additional info: Chest pain TECHNIQUE: Imaging protocol: Radiologic exam of the chest. Views: 1 view. COMPARISON: CR XR CHEST PORTABLE 09/19/2023 2:16 AM FINDINGS: Lungs: Unremarkable. No consolidation. Pleural spaces: Unremarkable. No pleural effusion. No pneumothorax. Heart/Mediastinum: Unremarkable. No cardiomegaly. Bones/joints: Unremarkable. IMPRESSION: Stable chest x-ray with no acute disease.
--- NOTE | 2023-11-04 16:33 | PC.NURSE ---
Dr. Bagley at [facility] for pt eval
--- NOTE | 2023-11-04 16:39 | HMH.EDCP ---
Discharge Plan Disposition Patient Disposition: Home, Self-Care Prescriptions Prescriptions: New albuterol sulfate 90 mcg/actuation HFA aerosol inhaler 4 inh inhalation Q4H PRN (Reason: shortness of breath or wheezing) Qty: 8.5 0RF Rx Instructions: 4 puffs every 4 hours for 48 hours then as needed for shortness of breath or wheezing following benzonatate 100 mg capsule 100 mg PO TID PRN (Reason: cough) 5 Days Qty: 20 0RF doxycycline hyclate 100 mg capsule 100 mg PO BID 10 Days Qty: 20 0RF ondansetron 4 mg tablet,disintegrating 4 mg PO Q6H PRN (Reason: nausea and vomiting) 5 Days Qty: 20 0RF No Action omeprazole 40 mg capsule,delayed release(DR/EC) 40 mg PO DAILY ipratropium-albuterol 0.5 mg-3 mg(2.5 mg base)/3 mL solution for nebulization 3 ml inhalation Q4HP PRN (Reason: Shortness Of Breath) nicotine 21 mg/24 hr patch 24 hour 1 patch transdermal DAILY Qty: 30 1RF benzonatate 200 mg capsule 200 mg PO TIDP PRN (Reason: Cough) Qty: 90 0RF doxycycline hyclate 100 mg capsule 100 mg PO BID 10 Days Qty: 20 0RF fluconazole [Diflucan] 100 mg tablet 100 mg PO DAILY 10 Days Qty: 10 0RF prednisone 20 mg tablet See Rx Instructions .Route .COMPLEX Qty: 15 0RF Rx Instructions: Take 1 tablet twice daily for 5 days, then Take 1 tablet daily for 5 days; clonazepam 0.5 mg tablet 0.5 mg PO QID PRN (Reason: Anxiety) Qty: 120 1RF nystatin 100,000 unit/mL suspension 10 ml PO Q8H 5 Days Qty: 150 0RF Rx Instructions: swish and swallow promethazine 25 mg tablet See Rx Instructions .ROUTE .COMPLEX Qty: 30 1RF Dose Instruction: TAKE ONE TABLET BY MOUTH EVERY 8 HOURS NEEDED FOR NAUSEA/VOMITING Rx Instructions: TAKE ONE TABLET BY MOUTH EVERY 8 HOURS NEEDED FOR NAUSEA/VOMITING gabapentin 600 mg tablet 600 mg PO TID Qty: 90 0RF tizanidine 4 mg tablet 4 mg PO TIDP PRN (Reason: Muscle Spasm) furosemide 20 mg tablet 20 mg PO DAILY escitalopram oxalate 20 mg tablet 20 mg PO DAILY Trelegy Ellipta 100-62.5-25 mcg blister with device 1 inh INHALATION DAILY albuterol sulfate 90 mcg/actuation HFA aerosol inhaler 2 puff inhalation Q6HP PRN (Reason: Shortness Of Breath) aspirin 81 mg tablet,delayed release (DR/EC) 81 mg PO DAILY ferrous sulfate [FeroSul] 325 mg (65 mg iron) tablet 325 mg PO DAILY folic acid 1 mg tablet 1 mg PO DAILY buprenorphine-naloxone 8-2 mg tablet, sublingual 2 tab SUBLINGUAL DAILY Referrals Follow up/Referrals: Kayy Warren PA [Primary Care Provider] - See instructions Activity Restrictions/Add. Instructions Additional Instructions/Restrictions: Return with inability to tolerate fluids by mouth worsening shortness of breath high fevers or other concerns. Clinical Impressions Clinical Impression: Acute exacerbation of chronic obstructive pulmonary disease, Chest pain, Nausea vomiting and diarrhea, Generalized weakness, Hypokalemia Discharge ED Provider: Radha Bagley HPI General Chief Complaint: Chest Pain Stated Complaint: chest pain Time Seen by Provider: 11/04/23 16:32 Mode of Arrival: Ambulatory Source of Information: Patient Limitations: No Limitations Description of Symptoms (Recalled from ER Triage Doc. by RN): Presents to ED from PCP office with c/o throbbing/burning midsternal Chest pain that radiates down her left arm x 4 days. Patient reports she has not eaten in 8 days along with N/V/D. Denies cardiac hx/ blood thinner. 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 She went to her primary care provider today and was sent to the emergenc
[2023-11-04 16:40] LABS: Basophils # 0.1 K/mm3 (0-0.2); Basophils % 0.8 % (0.1-2.0); Eosinophils # 0.4 K/mm3 (0.0-0.4); Eosinophils % 5.8 % (0.1-12.0); Hematocrit 47.1 % (37.0-47.0); Hemoglobin 15.8 g/dL (12.2-16.2); Lymphocytes # 2.1 K/mm3 (0.7-4.5); Lymphocytes % 29.9 % (10-50); Mean Corpuscular HGB Conc 33.5 g/dL (31.8-35.4); Mean Corpuscular Hemoglobin 30.5 pg (27.0-31.2); Mean Corpuscular Volume 91.2 fl (81-99); Mean Platelet Volume 8.2 fl (7.4-10.4); Monocytes # 0.4 K/mm3 (0.1-1.0); Monocytes % 6.1 % (1.7-9.3); Neutrophils % 57.5 % (37.0-80.0); Platelet Count 337 K/mm3 (142-424); Red Blood Count 5.16 M/mm3 (4.20-5.40); Red Cell Distribution Width 14.9 % (11.5-17.5); White Blood Count 6.9 K/mm3 (4.8-10.8)
[2023-11-04 16:50] LABS: Alanine Aminotransferase 17 U/L (12-78); Alkaline Phosphatase 117 U/L (38-126); Anion Gap 11.7 mEq/L (5-15); Aspartate Amino Transferase 31 U/L (14-36); Bilirubin,Total 0.4 mg/dl (0.2-1.3); Blood Urea Nitrogen 9 mg/dl (7-17); Calcium 8.8 mg/dl (8.4-10.2); Carbon Dioxide 26 mmol/L (22.0-30.0); Chloride 98 mmol/L (98-107); Creatinine Clearance Estimated 24 mL/min (50-200); Estimated Glomerular Filt Rate 29 ml/min (>60); GFR (African American) 35 ML/MIN (>60); Globulin 4.1 g/dL (1.3-3.2); Glucose 110 mg/dl (74-100); Sodium 133 mmol/L (136-145); Total Protein,Serum 8.1 g/dl (6.3-8.2)
[2023-11-04 16:53] LABS: Potassium 2.7 mmoL/L (3.5-5.1)
[2023-11-04 17:01] LABS: VBG Base Excess -1.4 mmol/L (-2.4-2.3); VBG HCO3 23.8 mmol/L (23-30); VBG Oxygen Saturation 94.7 % (50-70); VBG PCO2 41.3 mmol/L (35-51); VBG PH 7.38 mmol/L (7.31-7.41)
[2023-11-04 17:07] LABS: Troponin I < 0.01 ng/ml (0.00-0.034)
--- NOTE | 2023-11-04 17:13 | PC.NURSE ---
RT at BS to administer breathing treatment
--- NOTE | 2023-11-04 17:33 | PC.NURSE ---
Rounded on patient; call light within reach of patient
--- NOTE | 2023-11-04 17:59 | PC.NURSE ---
Rounded on pt. Cup of ice provided. No other needs voiced. Call light within reach.
--- NOTE | 2023-11-04 18:11 | PC.NURSE ---
pt was given a chicken salad sandwhich with baked bbq chips and dr juarez call light at
--- NOTE | 2023-11-04 18:46 | PC.NURSE ---
Rounded on patient; call light within reach of patient
--- NOTE | 2023-11-04 21:05 | PC.NURSE ---
Rounded on patient; call light within reach of patient
[2023-11-04 21:06] LABS: Troponin I < 0.01 ng/ml (0.00-0.034)
[2023-11-04 21:21] LABS: Coronavirus 19, PCR Not Detected (NotDetected); Influenza A, PCR Not Detected (NotDetected); Influenza B, PCR Not Detected (NotDetected)
== END 2023-11-04 23:07 | disposition home or self-care (01) ==
PROVIDERS: Emergency Provider Student in an Organized Health Care Education/Training Program; PCP Physician Assistant
DX: J44.1 Chronic obstructive pulmonary disease with (acute) exacerbation (principal); R07.9 Chest pain, unspecified; E87.6 Hypokalemia; R53.1 Weakness; I25.110 Atherosclerotic heart disease of native coronary artery with unstable angina pectoris; E78.5 Hyperlipidemia, unspecified; I50.30 Unspecified diastolic (congestive) heart failure; M81.0 Age-related osteoporosis without current pathological fracture; F17.210 Nicotine dependence, cigarettes, uncomplicated; R00.0 Tachycardia, unspecified
CPT/HCPCS: 71045; 80053; 82803; 84484; 85025; 87636; 93005; 96361; 96365; 96366; 96375; 99285; J2405; J3475

== ENCOUNTER → 2023-11-06 12:40 | Outpatient (CLI) | payer OTHER, SELFPAY ==
--- NOTE | 2023-11-06 13:00 | XR_ITS ---
FINAL REPORT CLINICAL HISTORY: left forearm pain FINDINGS: Left forearm Two views were obtained. There is no acute fracture or dislocation. There is sclerosis of the lunate worrisome for osteonecrosis. The joint spaces appear normal. No soft tissue abnormality is identified. 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 Reviewed, Interpreted and Dictated by Edward Espinoza III, MD Transcribed by Silvia Alford Authenticated and [facility]
--- NOTE | 2023-11-06 13:00 | XR_ITS ---
FINAL REPORT CLINICAL HISTORY: left wrist pain after fall FINDINGS: Left wrist Four views were obtained. There is no acute fracture or dislocation. There is sclerosis and some irregularity of the lunate worrisome for osteonecrosis. There are mild degenerative changes. No soft tissue abnormality is identified. IMPRESSION: Findings worrisome for necrosis of the lunate. Reviewed, Interpreted and Dictated by Edward Espinoza III, MD Transcribed by Silvia Alford Authenticated and [facility]
[2023-11-06 14:33] LABS: Anion Gap 13.8 mEq/L (5-15); Blood Urea Nitrogen 8 mg/dl (7-17); Calcium 8.4 mg/dl (8.4-10.2); Carbon Dioxide 22 mmol/L (22.0-30.0); Chloride 101 mmol/L (98-107); Estimated Glomerular Filt Rate 33 ml/min (>60); GFR (African American) 40 ML/MIN (>60); Glucose 91 mg/dl (74-100); Potassium 3.8 mmoL/L (3.5-5.1); Sodium 133 mmol/L (136-145)
[2023-11-06 21:07] LABS: Amphetamine/Metha Screen,Urine Negative ng/ml (<1000)
[2023-11-06 21:08] LABS: Barbiturates Screen,Urine Negative ng/ml (<200)
[2023-11-06 21:09] LABS: Benzodiazepines Screen,Urine Negative ng/ml (<200)
[2023-11-06 21:10] LABS: Cannabinoid Screen,Urine Positive ng/ml (<50); Cocaine Screen,Urine Negative ng/ml (<300)
[2023-11-06 21:11] LABS: Methadone Screen,Urine Negative ng/ml (<300)
[2023-11-06 21:12] LABS: Opiate Screen,Urine Negative ng/ml (<300); Phencyclidine Screen,Urine Negative ng/ml (<25)
== END ==
PROVIDERS: PCP Physician Assistant; Visit Provider Physician Assistant
DX: M79.632 Pain in left forearm (principal); M25.532 Pain in left wrist; E87.6 Hypokalemia; Z79.899 Other long term (current) drug therapy
CPT/HCPCS: 36415; 73090; 73110; 80048; 80305

== ENCOUNTER 2023-11-10 22:48 | Emergency (ER) | payer OTHER, SELFPAY ==
--- NOTE | 2023-11-10 22:38 | ECG_ITS ---
APPROVED REPORT Exam: Resting ECG HR:108 bpm ECG Measurements Heart Rate 108 AXES NC 123 P 76 QRSd 89 QRS 68 QT 327 T 77 QTc 390 Conclusion SINUS TACHYCARDIA Bi-atrial abnormality NONSPECIFIC T-WAVE ABNORMALITY ABNORMAL RHYTHM ECG UNCONFIRMED REPORT Electronically signed by : Evaristo Gonzalez MD 11/11/2023 19:18:14
[2023-11-10 22:48] VITALS: BP 130/70; PULSE 94; RESP 18; TEMP 36.5; O2SAT 95; BMI 17.4
[2023-11-10 23:11] VITALS: PULSE 95
--- NOTE | 2023-11-10 23:27 | CT_ITS ---
PROCEDURE INFORMATION: Exam: CTA Chest With Contrast Exam date and time: 11/11/2023 12:39 AM Age: 57 years old Clinical indication: Pain; Chest pressure; Additional info: Chest pain TECHNIQUE: Imaging protocol: Computed tomographic angiography of the chest with contrast. Exam focused on the arteries. 3D rendering (Not supervised by radiologist): MIP and/or 3D reconstructed images were created by the technologist. Radiation optimization: All CT scans at this facility use at least one of these dose optimization techniques: automated exposure control; mA and/or kV adjustment per patient size (includes targeted exams where dose is matched to clinical indication); or iterative reconstruction. Contrast material: ISOVUE; Contrast volume: 70 ml; Contrast route: INTRAVENOUS (IV); REPORTING DATA: Count of CT and Cardiac NM exams in prior 12 months: This patient has received 6 known CTs and 0 known cardiac nuclear medicine studies in the 12 months prior to the current study. COMPARISON: CT ANGIO CHEST PE PROTOCOL 08/07/2023 5:57 PM FINDINGS: Pulmonary arteries: Normal. No pulmonary emboli. Aorta: Mild atherosclerosis. No aortic aneurysm. No aortic dissection. Lungs: Minimal biapical pleural-parenchymal scarring. Minimal emphysema. Mild scattered subsegmental atelectasis. Diffuse centrilobular nodules/tree-in-bud opacities. No consolidation. No masses. Pleural spaces: Unremarkable. No pneumothorax. No pleural effusion. Heart: Unremarkable. No cardiomegaly. No pericardial effusion. Coronary arteries: Minimal coronary artery calcifications. Lymph nodes: Calcified left hilar lymph nodes. No enlarged lymph nodes. Diaphragm: Small hiatal hernia. Gallbladder and bile ducts: Postsurgical changes of cholecystectomy with expected mild biliary ductal dilatation. Kidneys and ureters: Left renal atrophy. Bones/joints: Dextroconvex curvature of the spine. Degenerative changes. No acute osseous findings. Soft tissues: Unremarkable. IMPRESSION: 1. No pulmonary artery embolism. 2. Diffuse centrilobular nodules/tree-in-bud opacities, most compatible with an infectious or inflammatory bronchiolitis in the acute setting. No consolidation. COMMENTS: In the absence of a history or active diagnosis of lung cancer, it is recommended that this patient with emphysema be evaluated for enrollment in a low dose CT lung cancer screening program.
--- NOTE | 2023-11-10 23:35 | PC.NURSE ---
hospitalist and nurse at bedside attempting IV
[2023-11-10 23:54] VITALS: BP 139/76; PULSE 101; RESP 20; O2SAT 91
[2023-11-11] VITALS (10 sets, daily range): BP systolic 101–120; BP diastolic 64–74; PULSE 1–102; RESP 7–19; TEMP 36.5; O2SAT 92–95
[2023-11-11 00:19] LABS: Basophils % 0.3 % (0.1-2.0); Eosinophils # 0.2 K/mm3 (0.0-0.4); Eosinophils % 1.6 % (0.1-12.0); Hematocrit 43.1 % (37.0-47.0); Hemoglobin 14.1 g/dL (12.2-16.2); Lymphocytes # 1.9 K/mm3 (0.7-4.5); Lymphocytes % 14.2 % (10-50); Mean Corpuscular HGB Conc 32.7 g/dL (31.8-35.4); Mean Corpuscular Hemoglobin 30.4 pg (27.0-31.2); Mean Corpuscular Volume 93.1 fl (81-99); Mean Platelet Volume 8.3 fl (7.4-10.4); Monocytes # 0.8 K/mm3 (0.1-1.0); Neutrophils # 10.2 K/mm3 (1.8-7.8); Neutrophils % 77.9 % (37.0-80.0); Platelet Count 321 K/mm3 (142-424); Red Blood Count 4.62 M/mm3 (4.20-5.40); Red Cell Distribution Width 15.4 % (11.5-17.5); White Blood Count 13.1 K/mm3 (4.8-10.8)
[2023-11-11 00:22] LABS: Alanine Aminotransferase 16 U/L (12-78); Albumin Level 3.6 g/dl (3.5-5.0); Albumin/Globulin Ratio 1.1 (1.1-1.8); Alkaline Phosphatase 129 U/L (38-126); Anion Gap 7.1 mEq/L (5-15); Aspartate Amino Transferase 34 U/L (14-36); Bilirubin,Total 0.4 mg/dl (0.2-1.3); Blood Urea Nitrogen 16 mg/dl (7-17); Calcium 7.7 mg/dl (8.4-10.2); Carbon Dioxide 32 mmol/L (22.0-30.0); Chloride 100 mmol/L (98-107); Creatinine Clearance Estimated 27 mL/min (50-200); Estimated Glomerular Filt Rate 33 ml/min (>60); GFR (African American) 40 ML/MIN (>60); Globulin 3.4 g/dL (1.3-3.2); Glucose 98 mg/dl (74-100); Potassium 3.1 mmoL/L (3.5-5.1); Sodium 136 mmol/L (136-145)
--- NOTE | 2023-11-11 00:26 | HMH.EDGENADL ---
Discharge Plan Disposition Patient Disposition: Home, Self-Care Condition: Good Prescriptions Prescriptions: New prednisone 50 mg tablet 50 mg PO DAILY 5 Days Qty: 5 0RF doxycycline hyclate 100 mg capsule 100 mg PO BID 14 Days Qty: 28 0RF No Action omeprazole 40 mg capsule,delayed release(DR/EC) 40 mg PO DAILY ipratropium-albuterol 0.5 mg-3 mg(2.5 mg base)/3 mL solution for nebulization 3 ml inhalation Q4HP PRN (Reason: Shortness Of Breath) furosemide 20 mg tablet 20 mg PO DAILY Qty: 90 0RF promethazine 25 mg tablet See Rx Instructions .ROUTE .COMPLEX Qty: 30 1RF Dose Instruction: TAKE ONE TABLET BY MOUTH EVERY 8 HOURS NEEDED FOR NAUSEA/VOMITING Rx Instructions: TAKE ONE TABLET BY MOUTH EVERY 8 HOURS NEEDED FOR NAUSEA/VOMITING aspirin 81 mg tablet,delayed release (DR/EC) 81 mg PO DAILY Qty: 90 0RF escitalopram oxalate 20 mg tablet 20 mg PO DAILY Qty: 90 0RF clonazepam 0.5 mg tablet 0.5 mg PO QID PRN (Reason: Anxiety) Qty: 120 0RF gabapentin 600 mg tablet 600 mg PO TID Qty: 90 0RF nicotine 21 mg/24 hr patch 24 hour 1 patch transdermal DAILY Qty: 30 1RF nystatin 100,000 unit/mL suspension 10 ml PO Q8H 5 Days Qty: 150 0RF Rx Instructions: swish and swallow tizanidine 4 mg tablet 4 mg PO TIDP PRN (Reason: Muscle Spasm) Trelegy Ellipta 100-62.5-25 mcg blister with device 1 inh INHALATION DAILY albuterol sulfate 90 mcg/actuation HFA aerosol inhaler 2 puff inhalation Q6HP PRN (Reason: Shortness Of Breath) albuterol sulfate 90 mcg/actuation HFA aerosol inhaler 4 inh inhalation Q4H PRN (Reason: shortness of breath or wheezing) Qty: 8.5 0RF Rx Instructions: 4 puffs every 4 hours for 48 hours then as needed for shortness of breath or wheezing following benzonatate 100 mg capsule 100 mg PO TID PRN (Reason: cough) 5 Days Qty: 20 0RF doxycycline hyclate 100 mg capsule 100 mg PO BID 10 Days Qty: 20 0RF ondansetron 4 mg tablet,disintegrating 4 mg PO Q6H PRN (Reason: nausea and vomiting) 5 Days Qty: 20 0RF ferrous sulfate [FeroSul] 325 mg (65 mg iron) tablet 325 mg PO DAILY folic acid 1 mg tablet 1 mg PO DAILY buprenorphine-naloxone 8-2 mg tablet, sublingual 2 tab SUBLINGUAL DAILY Referrals Follow up/Referrals: Provider,Referral, MD [Primary Care Provider] - See instructions Clinical Impressions Clinical Impression: Bronchitis, Hypokalemia, Left-sided chest wall pain, Hypocalcemia Discharge ED Provider: Yoly Arshad [facility] Adult HPI General Chief complaint: Chest Pain Stated complaint: chest pain Time Seen by Provider: 11/10/23 23:00 Mode of Arrival: EMS Source of Information: Patient Limitations: No Limitations Description of Symptoms (Recalled from ER Triage Doc. by RN): pt c/o chest pain and SOA x couple of days. and lt side rib pain after a fall History of Present Illness HPI narrative: This patient is a 57-year-old female with a history of COPD, aortic insufficiency, CKD, tobacco use, hypertension, and hyperlipidemia presented to the emergency department for evaluation with concern for chest pain. Patient states that the chest pain has been ongoing for approximately 1 year now. She states that she has also had ongoing cough and shortness of breath, requiring use of her nebulizer treatments at home. This is chronic for her, but she came in today because it got a little bit worse today and she is now having pain on the left side of her chest radiating underneath her breast. She states that it is worse when she takes a deep breath and she thought maybe she has pleurisy. She notes that it is similar to prior episodes of chest pain that she has had, but it feels a little bit worse. No other concerns noted at this time. Related Data Home Medications Medication Instructions Recorded Confirmed buprenorphine 8 mg-naloxone 2 mg 2 tab sublingual DAILY Opioid
[2023-11-11 00:34] LABS: Troponin I < 0.01 ng/ml (0.00-0.034)
[2023-11-11 00:43] LABS: Activated Partial Thrombo Time 22.8 seconds (22.8-30.6); INR 1.06 (0.9-1.1); Prothrombin Time 11.4 seconds (10.1-12.5)
[2023-11-11 00:56] LABS: NT Pro Brain Natriuretic Pep. 400 pg/mL (0-125)
--- NOTE | 2023-11-11 01:07 | PC.NURSE ---
patient given chicken salad sandwich, BBQ chips, cookies and Dr. Younger
[2023-11-11 01:54] LABS: Troponin I < 0.01 ng/ml (0.00-0.034)
== END 2023-11-11 04:17 | disposition home or self-care (01) ==
PROVIDERS: Emergency Provider Emergency Medicine
DX: R07.89 Other chest pain (principal); E87.6 Hypokalemia; E83.51 Hypocalcemia; J44.0 Chronic obstructive pulmonary disease with (acute) lower respiratory infection; I25.110 Atherosclerotic heart disease of native coronary artery with unstable angina pectoris; I13.0 Hypertensive heart and chronic kidney disease with heart failure and stage 1 through stage 4 chronic kidney disease, or unspecified chronic kidney disease; I50.9 Heart failure, unspecified; N18.9 Chronic kidney disease, unspecified; Z87.891 Personal history of nicotine dependence; R00.0 Tachycardia, unspecified
CPT/HCPCS: 71275; 80053; 83880; 84484; 85025; 85610; 85730; 93005; 96365; 96366; 99285; Q9967

== ENCOUNTER 2023-12-10 09:05 | Emergency (ER) | payer OTHER, SELFPAY ==
[2023-12-10] VITALS (8 sets, daily range): BP systolic 111–160; BP diastolic 72–86; PULSE 88–114; RESP 17–23; TEMP 36.7; O2SAT 95–99; BMI 16.5
--- NOTE | 2023-12-10 09:39 | XR_ITS ---
FINAL REPORT CLINICAL HISTORY: chest pain, soa COMPARISON: 11/04/2023 FINDINGS: SINGLE VIEW CHEST The heart size is normal. The mediastinum is within normal limits. No acute pulmonary abnormality is identified. There is no evidence of pneumothorax. The bony thorax is intact. IMPRESSION: No acute cardiopulmonary process. Reviewed, Interpreted and Dictated by Edward Espinoza III, MD Transcribed by Sue Sparks Authenticated and [facility]
--- NOTE | 2023-12-10 09:44 | ECG_ITS ---
APPROVED REPORT Exam: Resting ECG HR:103 bpm ECG Measurements Heart Rate 103 AXES OK 132 P 76 QRSd 92 QRS 70 QT 335 T 80 QTc 394 Conclusion SINUS TACHYCARDIA RIGHT ATRIAL ENLARGEMENT [0.3mV P-WAVE] ABNORMAL ECG UNCONFIRMED REPORT Electronically signed by : Evaristo Gonzalez MD 12/10/2023 20:38:35
[2023-12-10] MEDS: ASPIRIN 81MG CHEWABLE TABLET 324 MG PO (09:47)
[2023-12-10] MEDS: IPRATROPIUM/ALBUTEROL 3 ML NEB 6 ML IH (09:47)
--- NOTE | 2023-12-10 09:48 | PC.NURSE ---
RAD at for CXR
[2023-12-10 09:49] LABS: Basophils % 0.3 % (0.1-2.0); Eosinophils # 0.2 K/mm3 (0.0-0.4); Eosinophils % 1.9 % (0.1-12.0); Hematocrit 39.7 % (37.0-47.0); Hemoglobin 13.4 g/dL (12.2-16.2); Lymphocytes # 1.2 K/mm3 (0.7-4.5); Lymphocytes % 10.6 % (10-50); Mean Corpuscular HGB Conc 33.7 g/dL (31.8-35.4); Mean Corpuscular Volume 92.1 fl (81-99); Mean Platelet Volume 8.3 fl (7.4-10.4); Monocytes # 0.6 K/mm3 (0.1-1.0); Monocytes % 5.6 % (1.7-9.3); Neutrophils # 8.9 K/mm3 (1.8-7.8); Neutrophils % 81.6 % (37.0-80.0); Platelet Count 341 K/mm3 (142-424); Red Blood Count 4.31 M/mm3 (4.20-5.40); Red Cell Distribution Width 15.3 % (11.5-17.5); White Blood Count 10.9 K/mm3 (4.8-10.8)
[2023-12-10 09:57] LABS: Chloride 105 mmol/L (98-107); Sodium 137 mmol/L (136-145)
[2023-12-10 09:59] LABS: Alanine Aminotransferase 13 U/L (12-78); Aspartate Amino Transferase 22 U/L (14-36); Blood Urea Nitrogen 9 mg/dl (7-17); Creatinine Clearance Estimated 34 mL/min (50-200); Estimated Glomerular Filt Rate 46 ml/min (>60); GFR (African American) 56 ML/MIN (>60)
[2023-12-10 10:00] LABS: Albumin Level 3.1 g/dl (3.5-5.0); Albumin/Globulin Ratio 0.8 (1.1-1.8); Alkaline Phosphatase 117 U/L (38-126); Anion Gap 8.7 mEq/L (5-15); Bilirubin,Total 0.6 mg/dl (0.2-1.3); Calcium 8.3 mg/dl (8.4-10.2); Carbon Dioxide 26 mmol/L (22.0-30.0); Globulin 3.8 g/dL (1.3-3.2); Glucose 129 mg/dl (74-100); Total Protein,Serum 6.9 g/dl (6.3-8.2)
[2023-12-10 10:02] LABS: Potassium 2.7 mmoL/L (3.5-5.1)
--- NOTE | 2023-12-10 10:02 | PC.NURSE ---
Addendum entered by Elvira Brush, EMT 12/10/23 10:03: Dr. Romero notified of critical result Original Note: Critical result of potassium of 2.7 called and confirmed by Hao Tinsley RN.
[2023-12-10] MEDS: POTASSIUM CHLORIDE 20MEQ TAB 60 MEQ PO (10:06)
[2023-12-10 10:10] LABS: NT Pro Brain Natriuretic Pep. 502 pg/mL (0-125)
[2023-12-10] MEDS: KCl 10mEq/100ml 100 ML 100 MEQ IV (10:12)
[2023-12-10 10:13] LABS: Troponin I < 0.01 ng/ml (0.00-0.034)
--- NOTE | 2023-12-10 10:34 | ED_ITS ---
Discharge Plan Disposition Patient Disposition: Home, Self-Care Prescriptions Prescriptions: New potassium chloride [Klor-Con M20] 20 mEq tablet,ER particles/crystals 20 meq PO DAILY Qty: 30 1RF No Action furosemide 20 mg tablet 20 mg PO DAILY Qty: 90 0RF promethazine 25 mg tablet See Rx Instructions .ROUTE .COMPLEX Qty: 30 1RF Dose Instruction: TAKE ONE TABLET BY MOUTH EVERY 8 HOURS NEEDED FOR NAUSEA/VOMITING Rx Instructions: TAKE ONE TABLET BY MOUTH EVERY 8 HOURS NEEDED FOR NAUSEA/VOMITING aspirin 81 mg tablet,delayed release (DR/EC) 81 mg PO DAILY Qty: 90 0RF escitalopram oxalate 20 mg tablet 20 mg PO DAILY Qty: 90 0RF clonazepam 0.5 mg tablet 0.5 mg PO QID PRN (Reason: Anxiety) Qty: 120 0RF gabapentin 600 mg tablet 600 mg PO TID Qty: 90 0RF nicotine 21 mg/24 hr patch 24 hour 1 patch transdermal DAILY Qty: 30 1RF nystatin 100,000 unit/mL suspension 10 ml PO Q8H 5 Days Qty: 150 0RF Rx Instructions: swish and swallow ipratropium-albuterol 0.5 mg-3 mg(2.5 mg base)/3 mL solution for nebulization See Rx Instructions .ROUTE .COMPLEX Qty: 180 0RF Dose Instruction: INHALE CONTENTS OF 1 VIAL VIA NEBULIZER FOUR TIMES A DAY NEEDED FOR SHORTNESS OF BREATH Rx Instructions: INHALE CONTENTS OF 1 VIAL VIA NEBULIZER FOUR TIMES A DAY NEEDED FOR SHORTNESS OF BREATH tizanidine 4 mg tablet See Rx Instructions .ROUTE .COMPLEX Qty: 90 0RF Dose Instruction: TAKE ONE TABLET BY MOUTH EVERY 8 HOURS NEEDED FOR MUSCLE SPASTICITY Rx Instructions: TAKE ONE TABLET BY MOUTH EVERY 8 HOURS NEEDED FOR MUSCLE SPASTICITY omeprazole 40 mg capsule,delayed release(DR/EC) See Rx Instructions .ROUTE .COMPLEX Qty: 30 1RF Dose Instruction: TAKE ONE CAPSULE BY MOUTH ONCE A DAY FOR GERD Rx Instructions: TAKE ONE CAPSULE BY MOUTH ONCE A DAY FOR GERD Trelegy Ellipta 100-62.5-25 mcg blister with device 1 inh INHALATION DAILY albuterol sulfate 90 mcg/actuation HFA aerosol inhaler 2 puff inhalation Q6HP PRN (Reason: Shortness Of Breath) albuterol sulfate 90 mcg/actuation HFA aerosol inhaler 4 inh inhalation Q4H PRN (Reason: shortness of breath or wheezing) Qty: 8.5 0RF Rx Instructions: 4 puffs every 4 hours for 48 hours then as needed for shortness of breath or wheezing following benzonatate 100 mg capsule 100 mg PO TID PRN (Reason: cough) 5 Days Qty: 20 0RF doxycycline hyclate 100 mg capsule 100 mg PO BID 10 Days Qty: 20 0RF ondansetron 4 mg tablet,disintegrating 4 mg PO Q6H PRN (Reason: nausea and vomiting) 5 Days Qty: 20 0RF ferrous sulfate [FeroSul] 325 mg (65 mg iron) tablet 325 mg PO DAILY folic acid 1 mg tablet 1 mg PO DAILY buprenorphine-naloxone 8-2 mg tablet, sublingual 2 tab SUBLINGUAL DAILY prednisone 50 mg tablet 50 mg PO DAILY 5 Days Qty: 5 0RF doxycycline hyclate 100 mg capsule 100 mg PO BID 14 Days Qty: 28 0RF Referrals Follow up/Referrals: Kayy Warren PA [Primary Care Provider] - See instructions Activity Restrictions/Add. Instructions Additional Instructions/Restrictions: Call your family doctor to establish care for this visit to the emergency department and schedule follow-up within 48 hours to ensure improvement. If you have any worsening of your condition or any other concerning signs or symptoms, return to the emergency department or your primary care doctor for further evaluation. Be sure you are taking your potassium supplementation daily. Clinical Impressions Clinical Impression: Chest pain, Acute hypokalemia Instructions Patient Instructions: DI for Atypical Chest Pain Discharge ED Provider: Arik Romero General Adult HPI General Chief complaint: Chest Pain Stated complaint: Fall Time Seen by Provider: 12/10/23 09:15 Mode of Arrival: EMS Source of Information: Patient Limitations: No Limitations Description of Symptoms (Recalled from ER Triage Doc. by RN): Patient states she began to have a panic attack this morning and fell hitting her oxygen tank. After falling she began to have chest and left arm pain. History of Present Illness HPI narrative: 57-year-old female history of COPD on 2 L nasal cannula, CAD, aortic insufficiency presenting with chest pain. Patient states that she tripped, hit the back of her head on an oxygen tank this morning, did not lose consciousness. She is not on anticoagulation. Since that time, patient states that she is had chest pain. Chest pain is left of center, does not radiate. Associated with shortness of breath. Patient is also had a cough productive of yellow sputum when it is generally clear. She is not producing any more sputum and is not coughing more often than usual. Has not needed to increase her oxygen. She states that she was supposed to follow-up with [facility] ardiothorac surgery for preoperative workup today, 12/10. Because of her symptoms, she came to the emergency department instead. Related Data Home Medications Medication Instructions Recorded Confirmed buprenorphine 8 mg-naloxone 2 mg 2 tab sublingual DAILY Opioid 03/21/23 11/06/23 sublingual tablet dependence ferrous sulfate 325 mg (65 mg 325 mg PO DAILY Supplement 03/21/23 11/06/23 iron) tablet (FeroSul) folic acid 1 mg tablet 1 mg PO DAILY Supplement 03/21/23 11/06/23 albuterol sulfate 90 mcg/actuation 2 puff inhalation Q6HP PRN 09/19/23 11/06/23 aerosol inhaler Shortness Of Breath fluticasone fur. 100 mcg-umeclid 1 inh inhalation DAILY Breathing 09/19/23 11/06/23 62.5 mcg-vilant 25 mcg Problems inhalat.powder (Trelegy Ellipta) Previous Rx's Medication Instructions Recorded nicotine 21 mg/24 hr daily 1 patch transdermal DAILY #30 ea 09/23/23 transdermal patch nystatin 100,000 unit/mL oral 10 ml PO Q8H 5 days #150 mL 09/24/23 suspension albuterol sulfate 90 mcg/actuation 4 inh inhalation Q4H PRN shortness 11/04/23 aerosol inhaler of breath or wheezing #8.5 grams benzonatate 100 mg capsule 100 mg PO TID PRN cough 5 days #20 11/04/23 caps doxycycline hyclate 100 mg capsule 100 mg PO BID 10 days #20 caps 11/04/23 ondansetron 4 mg disintegrating 4 mg PO Q6H PRN nausea and 11/04/23 tablet vomiting 5 days #20 tabs aspirin 81 mg tablet,delayed 81 mg PO DAILY Heart health #90 11/06/23 release tabs clonazepam 0.5 mg tablet 0.5 mg PO QID PRN Anxiety #120 tabs 11/06/23 escitalopram oxalate 20 mg tablet 20 mg PO DAILY Mood #90 tabs 11/06/23 furosemide 20 mg tablet 20 mg PO DAILY Fluid #90 tabs 11/06/23 gabapentin 600 mg tablet 600 mg PO TID Pain #90 tabs 11/06/23 promethazine 25 mg tablet See Rx Instructions .Route 11/06/23 .COMPLEX #30 tabs doxycycline hyclate 100 mg capsule 100 mg PO BID 14 days #28 caps 11/11/23 prednisone 50 mg tablet 50 mg PO DAILY 5 days #5 tabs 11/11/23 ipratropium 0.5 mg-albuterol 3 mg See Rx Instructions .Route 11/18/23 (2.5 mg base)/3 mL nebulization .COMPLEX #180 mL soln tizanidine 4 mg tablet See Rx Instructions .Route 11/18/23 .COMPLEX #90 tabs omeprazole 40 mg capsule,delayed See Rx Instructions .Route 11/21/23 release .COMPLEX #30 caps potassium chloride 20 mEq 20 meq PO DAILY #30 tabs 12/10/23 tablet,extended release(part/cryst) (Klor-Con M) Allergies Allergy/AdvReac Type Severity Reaction Status Date / Time atorvastatin AdvReac Intermediate myalgia Verified 11/06/23 11:06 propoxyphene [PROPOXYPHENE] AdvReac Unknown Nausea Verified 11/06/23 11:06 tramadol [TRAMADOL] AdvReac Unknown Nausea Verified 11/06/23 11:06 [facility] Disclaimer: The information contained in this section may have been updated after the patient was seen, as this information can be updated by other users. 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 Abnormal ECG Acute respiratory failure with hypoxia Anemia Anxiety Anxiety disorder Aortic regurgitation Apnea Back Pain Bronchiectasis without acute exacerbation CAD (coronary artery disease) Carotid artery disease without cerebral infarction Cervical radiculopathy Cervical spondylosis with radiculopathy Chronic headaches Chronic pain Congestive heart failure COPD (chronic obstructive pulmonary disease) Coronary artery disease COVID-19 Depression Diastolic congestive heart failure Elevated erythrocyte sedimentation rate Exacerbation of bronchiectasis due to infection Fatigue HCV (hepatitis C virus) History of intravenous drug use in remission Hoarseness Hyperlipidemia Insomnia Lipoma of abdominal wall LVH (left ventricular hypertrophy) Osteopenia Osteoporosis Osteoporosis without current pathological fracture Pneumonia Polysubstance abuse TOMY (renal artery stenosis) Renal insufficiency Severe aortic regurgitation Severe sepsis with acute organ dysfunction Skin abscess Syncope and collapse Tobacco abuse Unstable angina Surgical History History of arthroscopic knee surgery History of breast biopsy History of cancer surgery History of cardiac cath History of carpal tunnel release History of section History of colonoscopy History of coronary artery stent placement History of hernia repair History of hysterectomy History of ureter stent Hx of cholecystectomy Family History Other Family history of COPD (chronic obstructive pulmonary disease) Family history of anemia Family history of hyperlipidemia Family history of hypertension Social History Smoking Status: Former smoker tobacco type: cigarettes packs per day: 1 second hand exposure: No alcohol intake: never substance use type: painkillers current occupational status: disabled Travel in the last 8 weeks: None household members: friend(s) housing: house marital status: current occupational exposures/hazards: No caffeine: Yes ROS Obtained: Yes All systems reviewed & no additional complaints except as documented Physical Exam General General appearance: alert Head Head exam: atraumatic and normocephalic Eye Eye exam: Present normal appearance, PERRL and EOMI ENT ENT exam: Present mucous membranes moist Neck Neck exam: Present trachea midline Chest Chest inspection: Present normal inspection and symmetric chest wall rise Respiratory Respiratory exam: Present wheezes (But bilateral inspiratory and); Absent respiratory distress, stridor, accessory muscle use or prolonged expiratory phase Cardiovascular Cardiovascular exam: Present regular rate, normal rhythm and systolic murmur Abdominal Exam Abdominal exam: Present soft; Absent distention, tenderness, guarding, rebound or rigidity Extremities Exam Extremities exam: Absent edema Neurological Exam Neurological exam: Present alert, oriented X3 and CN II-XII intact Skin Skin exam: Present warm and dry; Absent cyanosis, diaphoresis or pallor Medical Decision Making Medical Records Medical records reviewed: Yes I reviewed the patient's medical records. Berry Inquiry Pt receiving controlled substance: No Berry was queried for this patient: No Vital Signs: 12/10/23 09:05 12/10/23 09:30 12/10/23 10:00 Temperature 98.0 F Temperature Source Oral Pulse Rate 103 H 106 H Pulse Rate [Radial] 114 H Respiratory Rate 20 21 17 Blood Pressure 124/79 111/72 Blood Pressure [Right Arm] 127/81 Blood Pressure Mean Blood Pressure Mean [Right Arm] 96 Blood Pressure Source Blood Pressure Source [Right Arm] Automatic Cuff Blood Pressure Position Blood Pressure Position [Right Arm] Sitting 02 Sat by Pulse Oximetry 96 95 96 Oxygen Delivery Method Room Air Nasal Cannula Nasal Cannula Oxygen Flow Rate (LPM) 2 2 12/10/23 11:00 12/10/23 11:30 12/10/23 12:00 Temperature Temperature Source Pulse Rate 99 H 94 H 92 H Pulse Rate [Radial] Respiratory Rate 20 18 20 Blood Pressure 115/79 141/86 H 143/86 H Blood Pressure [Right Arm] Blood Pressure Mean 87 96 103 Blood Pressure Mean [Right Arm] Blood Pressure Source Blood Pressure Source [Right Arm] Blood Pressure Position Blood Pressure Position [Right Arm] 02 Sat by Pulse Oximetry 97 99 96 Oxygen Delivery Method Oxygen Flow Rate (LPM) 12/10/23 12:30 12/10/23 13:44 Temperature 98.1 F Temperature Source Oral Pulse Rate 88 88 Pulse Rate [Radial] Respiratory Rate 23 23 Blood Pressure 160/86 H 160/86 H Blood Pressure [Right Arm] Blood Pressure Mean 110 Blood Pressure Mean [Right Arm] Blood Pressure Source Automatic Cuff Blood Pressure Source [Right Arm] Blood Pressure Position Sitting Blood Pressure Position [Right Arm] 02 Sat by Pulse Oximetry 99 Oxygen Delivery Method Nasal Cannula Oxygen Flow Rate (LPM) 2 Lab Data Lab Results 12/10/23 09:35: WBC 10.9 H, RBC 4.31, Hgb 13.4, Hct 39.7, MCV 92.1, MCH 31.0, MCHC 33.7, RDW 15.3, Plt Count 341, MPV 8.3, Neut % (Auto) 81.6 H, Lymph % (Auto) 10.6, Arthur % (Auto) 5.6, Eos % (Auto) 1.9, Baso % (Auto) 0.3, Neut # (Auto) 8.9 H, Lymph # (Auto) 1.2, Arthur # (Auto) 0.6, Eos # (Auto) 0.2, Baso # (Auto) 0.0, Sodium 137, Potassium 2.7 L*, Chloride 105, Carbon Dioxide 26, Anion Gap 8.7, BUN 9, Creatinine 1.20 H, Estimated Creat Clear 34, Estimated GFR 46 L, Est GFR ( Amer) 56 L, Glucose 129 H, Calcium 8.3 L, Total Bilirubin 0.6, AST 22, ALT 13, Alkaline Phosphatase 117, Troponin I < 0.01, NT-Pro-B Natriuret Pep 502 H, Total Protein 6.9, Albumin 3.1 L, Globulin 3.8 H, Albumin/Globulin Ratio 0.8 L 12/10/23 12:52: Troponin I < 0.01 12/10/23 09:35 12/10/23 09:35 Orders (Tests/Meds): ED MEDICATIONS Discontinued Medications Generic Name Dose Route Start Last Admin Trade Name Freq PRN Reason Stop Dose Admin Albuterol/Ipratropium 6 ml 12/10/23 09:39 12/10/23 09:47 Ipratropium/Albuterol 3 Ml Neb IH 12/10/23 09:40 6 ml ONCE ONE Administration Aspirin 324 mg 12/10/23 09:39 12/10/23 09:47 Aspirin 81mg Chewable Tablet PO 12/10/23 09:40 324 mg ONCE ONE Administration Buprenorphine/Naloxone 1 each 12/10/23 10:53 12/10/23 11:37 Buprenorphine/Naloxone 8mg/2mg Odt SL 12/10/23 10:54 1 each ONCE ONE Administration Potassium Chloride/Water 100 mls @ 100 mls/hr 12/10/23 10:15 12/10/23 12:55 Potassium Chloride 10meq/100ml Ivpb IV 12/10/23 13:14 Not Given Q1H CHAYA Potassium Chloride 60 meq 12/10/23 10:03 12/10/23 10:06 Potassium Chloride 20meq Tab PO 12/10/23 10:04 60 meq ONCE ONE Administration ORDERS Category Date Time Status CXR --portable [XR chest portable] Stat Exams 12/10/23 09:39 Completed XR hand LT 2V Stat Exams 12/10/23 11:38 Completed XR wrist LT 2V Stat Exams 12/10/23 11:38 Completed Brain Natriuretic Peptide Stat Lab 12/10/23 09:35 Completed CBC w/Auto Diff [Complete Blood Count Auto Diff] Stat Lab 12/10/23 09:35 Completed CMP [Comprehensive Metabolic Panel] Stat Lab 12/10/23 09:35 Completed Trop I [Troponin I] Stat Lab 12/10/23 09:35 Completed Troponin I Q3H Lab 12/10/23 12:52 Completed Troponin I Q3H Lab 12/10/23 15:45 Ordered ECG initial Besson Routine Y 12/10/23 09:44 Completed Medical Decision Narrative: 57-year-old female history of COPD on 2 L nasal cannula, CAD, aortic insufficiency presenting with chest pain. Patient states that she tripped, hit the back of her head on an oxygen tank this morning, did not lose consciousness. She is not on anticoagulation. Since that time, patient states that she is had chest pain. Chest pain is left of center, does not radiate. Associated with shortness of breath. Patient is also had a cough productive of yellow sputum when it is generally clear. She is not producing any more sputum and is not coughing more often than usual. Has not needed to increase her oxygen. She states that she was supposed to follow-up with [facility] cardiothoracic surgery for preoperative workup today, 12/10. Because of her symptoms, she came to the emergency department instead. Is been noted that patient has extensive cardiopulmonary history which complicating care. history was obtained via conversation with patient, outside hospital chart review. On arrival, patient hemodynamically stable, alert, oriented x4, appropriate, GCS 15, moving all extremities spontaneously, pupils equal and reactive to light. Full physical exam performed and significant for chronically ill-appearing woman in no acute distress. Lungs wheezy bilaterally with systolic ejection murmur. Saturating appropriately on home oxygen. No lower extremity edema.. Differential includes COPD exacerbation, ACS, [place], pneumothorax, PE, dissection, pneumothorax, aortic aneurysm, pneumonia, bronchitis, among others. Patient was given aspirin, DuoNeb for symptomatic management and correction of underlying abnormalities. Workup independently interpreted and significant for delta troponin. CBC nonactionable. Patient does h. moderate to severe hypokalemia, this was repleted p.o. and IV. Patient declined second and third IV repletion bags. Chest x-ray without acute cardiopulmonary airspace disease ee radiology read for full review of final results. Independent interpretation of EKG shows sinus tachycardia [address] or T wave changes concerning for acute ischemia. IA, QRS, QT intervals within normal limits. [place] normal. Heart score 4. Patient was placed in observation beginning at 9:30 AM in order to obtain serial troponins and replete potassium stores and determine need for admission versus home-going. The patient was provided potassium orally and IV while awaiting results. Independent interpretation of results demonstrated negative delta troponin. On reevaluation, patient complaining of left hand pain, this was negative as well. At this time, I feel patient is appropriate for discharge. Total observation time 4 hours. Because patient at baseline without signs or symptoms of clinical decompensation, deemed appropriate for discharge. Results were relayed to patient who voiced understanding and were agreeable to outpatient management and follow up. At the time of discharge the patient was hemodynamically stable, tolerating PO, and mobilizing appropriately. Critical Care Critical Care Time Critical Care Time: No
--- NOTE | 2023-12-10 11:29 | PC.NURSE ---
Patient complaining of burning with her potassium. Refused the rest of her potassium IV.
[2023-12-10] MEDS: BUPRENORPHINE/NALOXONE 8MG/2MG ODT 1 EACH SL (11:37)
--- NOTE | 2023-12-10 11:38 | XR_ITS ---
FINAL REPORT CLINICAL HISTORY: fall FINDINGS: 2 views of the left hand were obtained. There is no acute fracture. There is no dislocation. There are mild degenerative changes. There is no acute soft tissue abnormality. IMPRESSION: No acute process. Reviewed, Interpreted and Dictated by Edward Espinoza III, MD Transcribed by Arturo Hilliard Authenticated and [facility]
--- NOTE | 2023-12-10 11:38 | XR_ITS ---
FINAL REPORT CLINICAL HISTORY: GO WITH O2 FINDINGS: 2 views of the right wrist were obtained. There is no acute fracture. There is no dislocation. There are mild degenerative changes. There is dorsal wrist soft tissue swelling. IMPRESSION: No acute bony abnormality. Reviewed, Interpreted and Dictated by Edward Espinoza III, MD Transcribed by Arturo Hilliard Authenticated and . [facility]
--- NOTE | 2023-12-10 12:11 | PC.NURSE ---
RAD at BS
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
[2023-12-10 13:39] LABS: Troponin I < 0.01 ng/ml (0.00-0.034)
== END 2023-12-10 13:58 | disposition home or self-care (01) ==
PROVIDERS: Emergency Provider Emergency Medicine; PCP Physician Assistant
DX: R07.9 Chest pain, unspecified (principal); E87.6 Hypokalemia; R06.02 Shortness of breath; J44.9 Chronic obstructive pulmonary disease, unspecified; I25.110 Atherosclerotic heart disease of native coronary artery with unstable angina pectoris; I35.1 Nonrheumatic aortic (valve) insufficiency; E78.5 Hyperlipidemia, unspecified; I50.9 Heart failure, unspecified; B19.20 Unspecified viral hepatitis C without hepatic coma; Z87.891 Personal history of nicotine dependence; W01.198A Fall on same level from slipping, tripping and stumbling with subsequent striking against other object, initial encounter
CPT/HCPCS: 36415; 71045; 73100; 73120; 80053; 83880; 84484; 85025; 93005; 99285; J0574

== ENCOUNTER 2023-12-14 00:24 | Observation (INO) | payer OTHER, SELFPAY ==
[2023-12-14] VITALS (18 sets, daily range): BP systolic 132–157; BP diastolic 71–90; PULSE 106–147; RESP 17–26; TEMP 36.6–37.1; O2SAT 94–100; BMI 16.5; BMI 16.9
--- NOTE | 2023-12-14 00:26 | XR_ITS ---
PROCEDURE INFORMATION: Exam: XR Chest Exam date and time: 12/14/2023 12:31 AM Age: 57 years old Clinical indication: Condition or disease; Lung condition and disease; Hypoxia and respiratory failure; Additional info: Hypoxia, resp failure TECHNIQUE: Imaging protocol: Radiologic exam of the chest. Views: 1 view. COMPARISON: CR XR CHEST PORTABLE 12/10/2023 9:43 AM FINDINGS: Lungs: No evidence of acute pulmonary disease or infiltrates Pleural spaces: No large effusion or pneumothorax. Heart/Mediastinum: No evidence of mediastinal widening or cardiac silhouette enlargement; the mediastinum and heart appear within normal limits for contour and size. Bones/joints: No evidence of acute osseous abnormalities within the visualized portions of the thoracic spine and ribs. Osseous structures appear appropriate for patient age. IMPRESSION: No dense parenchymal consolidation, pleural effusion, or pneumothorax.
[2023-12-14] MEDS: RINGERS SOLUTION,LACTATED 500 ML 999 ML IV (00:47)
[2023-12-14] MEDS: ONDANSETRON 4MG/2ML VIAL 4 MG IV ×3 (00:47→18:37)
[2023-12-14] MEDS: ACETAMINOPHEN 1,000MG/100ML VIAL 1000 MG IV (00:49)
--- NOTE | 2023-12-14 00:58 | [facility].EDGENADL ---
Discharge Plan Disposition Chief Complaint: Nausea/Vomiting/Diarrhea Prescriptions Prescriptions: No Action furosemide 20 mg tablet 20 mg PO DAILY Qty: 90 0RF promethazine 25 mg tablet See Rx Instructions .ROUTE .COMPLEX Qty: 30 1RF Dose Instruction: TAKE ONE TABLET BY MOUTH EVERY 8 HOURS NEEDED FOR NAUSEA/VOMITING Rx Instructions: TAKE ONE TABLET BY MOUTH EVERY 8 HOURS NEEDED FOR NAUSEA/VOMITING aspirin 81 mg tablet,delayed release (DR/EC) 81 mg PO DAILY Qty: 90 0RF escitalopram oxalate 20 mg tablet 20 mg PO DAILY Qty: 90 0RF clonazepam 0.5 mg tablet 0.5 mg PO QID PRN (Reason: Anxiety) Qty: 120 0RF gabapentin 600 mg tablet 600 mg PO TID Qty: 90 0RF nicotine 21 mg/24 hr patch 24 hour 1 patch transdermal DAILY Qty: 30 1RF nystatin 100,000 unit/mL suspension 10 ml PO Q8H 5 Days Qty: 150 0RF Rx Instructions: swish and swallow ipratropium-albuterol 0.5 mg-3 mg(2.5 mg base)/3 mL solution for nebulization See Rx Instructions .ROUTE .COMPLEX Qty: 180 0RF Dose Instruction: INHALE CONTENTS OF 1 VIAL VIA NEBULIZER FOUR TIMES A DAY NEEDED FOR SHORTNESS OF BREATH Rx Instructions: INHALE CONTENTS OF 1 VIAL VIA NEBULIZER FOUR TIMES A DAY NEEDED FOR SHORTNESS OF BREATH tizanidine 4 mg tablet See Rx Instructions .ROUTE .COMPLEX Qty: 90 0RF Dose Instruction: TAKE ONE TABLET BY MOUTH EVERY 8 HOURS NEEDED FOR MUSCLE SPASTICITY Rx Instructions: TAKE ONE TABLET BY MOUTH EVERY 8 HOURS NEEDED FOR MUSCLE SPASTICITY omeprazole 40 mg capsule,delayed release(DR/EC) See Rx Instructions .ROUTE .COMPLEX Qty: 30 1RF Dose Instruction: TAKE ONE CAPSULE BY MOUTH ONCE A DAY FOR GERD Rx Instructions: TAKE ONE CAPSULE BY MOUTH ONCE A DAY FOR GERD Trelegy Ellipta 100-62.5-25 mcg blister with device 1 inh INHALATION DAILY albuterol sulfate 90 mcg/actuation HFA aerosol inhaler 2 puff inhalation Q6HP PRN (Reason: Shortness Of Breath) albuterol sulfate 90 mcg/actuation HFA aerosol inhaler 4 inh inhalation Q4H PRN (Reason: shortness of breath or wheezing) Qty: 8.5 0RF Rx Instructions: 4 puffs every 4 hours for 48 hours then as needed for shortness of breath or wheezing following benzonatate 100 mg capsule 100 mg PO TID PRN (Reason: cough) 5 Days Qty: 20 0RF doxycycline hyclate 100 mg capsule 100 mg PO BID 10 Days Qty: 20 0RF ondansetron 4 mg tablet,disintegrating 4 mg PO Q6H PRN (Reason: nausea and vomiting) 5 Days Qty: 20 0RF ferrous sulfate [FeroSul] 325 mg (65 mg iron) tablet 325 mg PO DAILY folic acid 1 mg tablet 1 mg PO DAILY buprenorphine-naloxone 8-2 mg tablet, sublingual 2 tab SUBLINGUAL DAILY prednisone 50 mg tablet 50 mg PO DAILY 5 Days Qty: 5 0RF doxycycline hyclate 100 mg capsule 100 mg PO BID 14 Days Qty: 28 0RF potassium chloride [Klor-Con M20] 20 mEq tablet,ER particles/crystals 20 meq PO DAILY Qty: 30 1RF Referrals Follow up/Referrals: Provider,Referral, MD [Referring] - See instructions Clinical Impressions Clinical Impression: Intractable nausea and vomiting, Acute exacerbation of chronic obstructive pulmonary disease, Hypokalemia Instructions Patient Instructions: DI for Diarrhea and Traveler's Diarrhea -- Adult, DI for Diarrhea and Traveler's Diarrhea -- Child, DI for Nausea -- Adult, DI for Nausea -- Child Discharge ED Provider: Y[facility] Adult HPI General Chief complaint: Nausea/Vomiting/Diarrhea Stated complaint: N/V Time Seen by Provider: 12/14/23 00:25 Mode of Arrival: Family Vehicle Source of Information: Patient Limitations: No Limitations Description of Symptoms (Recalled from ER Triage Doc. by RN): 57 YO FEMALE PRESENTS WITH CC OF N/V/D; DECREASED O2 SAT History of Present Illness HPI narrative: This patient is a 57-year-old female with history of COPD, CHF, hepatitis C, history of IV drug use intermission, history of tobacco abuse, CAD, aortic regurgitation, renal artery stenosis, renal insufficiency, hypertension, hyperlipidemia, as well as prior cholecystectomy and hysterectomy presenting to the emergency department for evaluation with concern for nausea, vomiting, and diarrhea for 2 days. She states that she has not been able to keep anything down. Upon EMS arrival, they noted that she was breathing fast and had a low oxygen saturation in the 70s on room air. Patient reports that she does not usually wear oxygen at home. They also note that she was tachycardic with a heart rate in the 130s. Patient arrives complaining of generalized abdominal pain as well as nausea, but no other concerns noted at this time, such as chest pain or shortness of breath. She does note that she has been having chills. Related Data Home Medications Medication Instructions Recorded Confirmed buprenorphine 8 mg-naloxone 2 mg 2 tab sublingual DAILY Opioid 03/21/23 11/06/23 sublingual tablet dependence ferrous sulfate 325 mg (65 mg 325 mg PO DAILY Supplement 03/21/23 11/06/23 iron) tablet (FeroSul) folic acid 1 mg tablet 1 mg PO DAILY Supplement 03/21/23 11/06/23 albuterol sulfate 90 mcg/actuation 2 puff inhalation Q6HP PRN 09/19/23 11/06/23 aerosol inhaler Shortness Of Breath fluticasone fur. 100 mcg-umeclid 1 inh inhalation DAILY Breathing 09/19/23 11/06/23 62.5 mcg-vilant 25 mcg Problems inhalat.powder (Trelegy Ellipta) Previous Rx's Medication Instructions Recorded nicotine 21 mg/24 hr daily 1 patch transdermal DAILY #30 ea 09/23/23 transdermal patch nystatin 100,000 unit/mL oral 10 ml PO Q8H 5 days #150 mL 09/24/23 suspension albuterol sulfate 90 mcg/actuation 4 inh inhalation Q4H PRN shortness 11/04/23 aerosol inhaler of breath or wheezing #8.5 grams benzonatate 100 mg capsule 100 mg PO TID PRN cough 5 days #20 11/04/23 caps doxycycline hyclate 100 mg capsule 100 mg PO BID 10 days #20 caps 11/04/23 ondansetron 4 mg disintegrating 4 mg PO Q6H PRN nausea and 11/04/23 tablet vomiting 5 days #20 tabs aspirin 81 mg tablet,delayed 81 mg PO DAILY Heart health #90 11/06/23 release tabs clonazepam 0.5 mg tablet 0.5 mg PO QID PRN Anxiety #120 tabs 11/06/23 escitalopram oxalate 20 mg tablet 20 mg PO DAILY Mood #90 tabs 11/06/23 furosemide 20 mg tablet 20 mg PO DAILY Fluid #90 tabs 11/06/23 gabapentin 600 mg tablet 600 mg PO TID Pain #90 tabs 11/06/23 promethazine 25 mg tablet See Rx Instructions .Route 11/06/23 .COMPLEX #30 tabs doxycycline hyclate 100 mg capsule 100 mg PO BID 14 days #28 caps 11/11/23 prednisone 50 mg tablet 50 mg PO DAILY 5 days #5 tabs 11/11/23 ipratropium 0.5 mg-albuterol 3 mg See Rx Instructions .Route 11/18/23 (2.5 mg base)/3 mL nebulization .COMPLEX #180 mL soln tizanidine 4 mg tablet See Rx Instructions .Route 11/18/23 .COMPLEX #90 tabs omeprazole 40 mg capsule,delayed See Rx Instructions .Route 11/21/23 release .COMPLEX #30 caps potassium chloride 20 mEq 20 meq PO DAILY #30 tabs 12/10/23 tablet,extended release(part/cryst) (Klor-Con M) Allergies Allergy/AdvReac Type Severity Reaction Status Date / Time atorvastatin AdvReac Intermediate myalgia Verified 11/06/23 11:06 propoxyphene [PROPOXYPHENE] AdvReac Unknown Nausea Verified 11/06/23 11:06 tramadol [TRAMADOL] AdvReac Unknown Nausea Verified 11/06/23 11:06 PFSH PFS Disclaimer: The information contained in this section may have been updated after the patient was seen, as this information can be updated by other users. 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 Abnormal ECG Acute respiratory failure with hypoxia Anemia Anxiety Anxiety disorder Aortic regurgitation Apnea Back Pain Bronchiectasis without acute exacerbation CAD (coronary artery disease) Carotid artery disease without cerebral infarction Cervical radiculopathy Cervical spondylosis with radiculopathy Chronic headaches Chronic pain Congestive heart failure COPD (chronic obstructive pulmonary disease) Coronary artery disease COVID-19 Depression Diastolic congestive heart failure Elevated erythrocyte sedimentation rate Exacerbation of bronchiectasis due to infection Fatigue HCV (hepatitis C virus) History of intravenous drug use in remission Hoarseness Hyperlipidemia Insomnia Lipoma of abdominal wall LVH (left ventricular hypertrophy) Osteopenia Osteoporosis Osteoporosis without current pathological fracture Pneumonia Polysubstance abuse TOMY (renal artery stenosis) Renal insufficiency Severe aortic regurgitation Severe sepsis with acute organ dysfunction Skin abscess Syncope and collapse Tobacco abuse Unstable angina Surgical History History of arthroscopic knee surgery History of breast biopsy History of cancer surgery History of cardiac cath History of carpal tunnel release History of section History of colonoscopy History of coronary artery stent placement History of hernia repair History of hysterectomy History of ureter stent Hx of cholecystectomy Family History Other Family history of COPD (chronic obstructive pulmonary disease) Family history of anemia Family history of hyperlipidemia Family history of hypertension Social History Smoking Status: Unknown if ever smoked second hand exposure: No alcohol intake: never substance use type: painkillers current occupational status: disabled Travel in the last 8 weeks: None household members: friend(s) housing: house marital status: current occupational exposures/hazards: No caffeine: Yes ROS Obtained: Yes All systems reviewed & no additional complaints except as documented Physical Exam General General appearance: alert and in no apparent distress Head Head exam: atraumatic and normocephalic Eye Eye exam: Present normal appearance, PERRL and EOMI ENT ENT exam: Present mucous membranes dry and normal external ear exam Neck Neck exam: Present normal inspection, full ROM and trachea midline; Absent tenderness Chest Chest inspection: Present normal inspection and symmetric chest wall rise; Absent tenderness Respiratory Respiratory exam: Present wheezes (diffuse) and prolonged expiratory phase; Absent respiratory distress, stridor or accessory muscle use Cardiovascular Cardiovascular exam: Present normal rhythm and tachycardia Abdominal Exam Abdominal exam: Present soft and tenderness (generalized); Absent distention, guarding, rebound or rigidity Extremities Exam Extremities exam: Present normal inspection, full ROM and normal capillary refill; Absent tenderness or edema Back Exam Back exam: Present normal inspection and full ROM; Absent tenderness Neurological Exam Neurological exam: Present alert, oriented X3, CN II-XII intact and normal gait; Absent motor sensory deficit Psychiatric Psychiatric exam: Present normal affect and normal mood Skin Skin exam: Present warm and dry Medical Decision Making Medical Records Medical records reviewed: Yes I reviewed the patient's medical records. Berry Inquiry Pt receiving controlled substance: No Vital Signs: 12/14/23 00:29 12/14/23 01:05 12/14/23 01:30 Temperature 98.7 F Temperature Source Oral Pulse Rate 134 H 136 H Pulse Rate [Right Brachial] 131 H Respiratory Rate 17 20 25 H Blood Pressure 143/90 H Blood Pressure [Right Arm] 143/90 H Blood Pressure Mean [Right Arm] 107 Blood Pressure Source [Right Arm] Automatic Cuff Blood Pressure Position [Right Arm] Sitting 02 Sat by Pulse Oximetry 98 99 95 Oxygen Delivery Method Room Air Nasal Cannula Nasal Cannula Oxygen Flow Rate (LPM) 2 2 12/14/23 02:00 12/14/23 02:30 12/14/23 03:00 Temperature Temperature Source Pulse Rate 146 H 147 H 139 H Pulse Rate [Right Brachial] Respiratory Rate 18 22 24 Blood Pressure Blood Pressure [Right Arm] Blood Pressure Mean [Right Arm] Blood Pressure Source [Right Arm] Blood Pressure Position [Right Arm] 02 Sat by Pulse Oximetry 94 L 97 97 Oxygen Delivery Method Nasal Cannula Nasal Cannula Nasal Cannula Oxygen Flow Rate (LPM) 2 2 2 12/14/23 03:30 Temperature Temperature Source Pulse Rate 138 H Pulse Rate [Right Brachial] Respiratory Rate 24 Blood Pressure 136/76 Blood Pressure [Right Arm] Blood Pressure Mean [Right Arm] Blood Pressure Source [Right Arm] Blood Pressure Position [Right Arm] 02 Sat by Pulse Oximetry 95 Oxygen Delivery Method Nasal Cannula Oxygen Flow Rate (LPM) 2 Lab Data Lab results reviewed: Yes I reviewed the patient's lab results. Lab Results 12/14/23 02:12: WBC 14.8 H, RBC 5.38, Hgb 16.5 H, Hct 49.5 H, MCV 92.1, MCH 30.6, MCHC 33.2, RDW 15.2, Plt Count 263, MPV 9.6, Neut % (Auto) 80.9 H, Lymph % (Auto) 12.5, [place] % (Auto) 4.9, Eos % (Auto) 1.2, Baso % (Auto) 0.6, Neut # (Auto) 12.0 H, Lymph # (Auto) 1.8, [place] # (Auto) 0.7, Eos # (Auto) 0.2, Baso # (Auto) 0.1, Sodium 138, Potassium 2.9 L*, Chloride 106, Carbon Dioxide 16 L, Anion Gap 18.9 H, BUN 5 L, Creatinine 1.40 H, Estimated Creat Clear 29, Estimated GFR 39 L, Est GFR ( Amer) 47 L, Glucose 120 H, Lactate 2.7 H, Calcium 7.4 L, Total Bilirubin 0.8, AST 28, ALT 18, Alkaline Phosphatase 159 H, Troponin I < 0.01, NT-Pro-B Natriuret Pep TNP, Total Protein 7.3, Albumin 3.3 L, Globulin 4.0 H, Albumin/Globulin Ratio 0.8 L, Lipase TNP 12/14/23 02:12 12/14/23 02:12 Orders (Tests/Meds): ED MEDICATIONS Discontinued Medications Generic Name Dose Route Start Last Admin Trade Name Freq PRN Reason Stop Dose Admin Acetaminophen 1,000 mg 12/14/23 00:27 12/14/23 00:49 Acetaminophen 1,000mg/100ml Vial IV 12/14/23 00:28 1,000 mg ONCE ONE Administration Albuterol/Ipratropium 9 ml 12/14/23 00:26 12/14/23 01:46 Ipratropium/Albuterol 3 Ml Neb IH 12/14/23 00:27 9 ml ONCE ONE Administration Lactated Ringer's 500 mls @ 999 mls/hr 12/14/23 00:27 12/14/23 00:47 Lactated Ringer's 500ml IV 12/14/23 00:57 999 mls/hr .Q31M ONE Administration Potassium Chloride/Water 100 mls @ 100 mls/hr 12/14/23 03:30 12/14/23 03:56 Potassium Chloride 10meq/100ml Ivpb IV 12/14/23 05:29 Not Given Q1H CHAYA Methylprednisolone Sodium Succinate 125 mg 12/14/23 03:46 12/14/23 03:49 Methylprednisolone Sod Succ 125mg Vial IV 12/14/23 03:47 125 mg ONCE ONE Administration Ondansetron HCl 4 mg 12/14/23 00:27 12/14/23 00:47 Ondansetron 4mg/2ml Vial IV 12/14/23 00:28 4 mg ONCE ONE Administration Ondansetron HCl 4 mg 12/14/23 03:46 12/14/23 03:49 Ondansetron 4mg/2ml Vial IV 12/14/23 03:47 4 mg ONCE ONE Administration Potassium Chloride 40 meq 12/14/23 03:07 12/14/23 03:31 Potassium Chloride 20meq Tab PO 12/14/23 03:08 40 meq ONCE ONE Administration ORDERS Category Date Time Status CT abdomen pelvis wo con Stat Cat Scan 12/14/23 02:[address] chest wo con Stat Cat Scan 12/14/23 02:34 Completed CXR --portable [XR chest portable] Stat Exams 12/14/23 00:26 Completed Brain Natriuretic Peptide Stat Lab 12/14/23 02:12 Completed Complete Blood Count Auto Diff Stat Lab 12/14/23 02:12 Completed Comprehensive Metabolic Panel Stat Lab 12/14/23 02:12 Completed D-Dimer Stat Lab 12/14/23 02:12 Received Diarrhea 6-11 Panel, Cdiff PCR Stat Lab 12/14/23 00:27 Ordered Lactic Acid Stat Lab 12/14/23 02:12 Completed Lipase Stat Lab 12/14/23 02:12 Completed Rapid PCR Covid and Flu A/B Stat Lab 12/14/23 00:27 Ordered Troponin I Q3H Lab 12/14/23 03:30 Ordered Troponin I Q3H Lab 12/14/23 06:30 Ordered Troponin I Stat Lab 12/14/23 02:12 Completed Urinalysis and Microscopic Stat Lab 12/14/23 00:27 Ordered Blood Culture Stat Micro 12/14/23 02:12 Ordered Venous Blood Gas Stat RT 12/14/23 00:28 Ordered ECG initial Besson Routine Y 12/14/23 10:53 Completed ECG Data Tracing #1: I reviewed this ECG and interpreted as documented below: Obtained just after albuterol nebulizer treatments. Sinus tachycardia with a ventricular rate of 153 bpm. No obvious acute ST changes concerning for ischemia. Normal axis and intervals. ECG initial impression date: 12/14/23 ECG initial impression time: 01:57 Medical Decision Narrative: In summary, this patient is a 57-year-old female presenting to the Emergency Department for evaluation of nausea, vomiting, and diarrhea. She is also noted to be hypoxic and tachycardic per EMS.. Differential diagnoses considered include but are not limited to COPD exacerbation, pneumonia, dehydration, electrolyte derangements, gastroenteritis, colitis. Ruling out the most morbid conditions drove assessment. It should be noted patient's history includes extensive cardiac history as well as COPD which may or may not be at goal therapy. This complicates all aspects of care by increasing patient's risk for morbidity. I reviewed patient's past medical records and noted multiple previous ED evaluations in the past for COPD exacerbations and multiple other issues. On exam, the patient is tachycardic and hypoxic on room air. She has diffuse wheezing noted on exam. She has generalized abdominal tenderness with no focal tenderness. No rebound or guarding. Workup included CBC, CMP, lipase, lactic acid, blood cultures, VBG, D-dimer, troponin, BNP, urinalysis, stool panel, viral swab, chest x-ray, and EKG. She was given a bolus of IV fluids as well as IV Zofran and acetaminophen for symptomatic improvement. I independently interpreted x-ray prior to the radiologist read and noted no obvious acute focal consolidation. Please see their read for final interpretation. Labs were obtained that demonstrated hypokalemia, which is chronic for the patient. IV and oral replacement was ordered, however patient refused IV replacement. She has leukocytosis, which is also chronic according to lab evaluation. She looks clinically dry with mildly elevated anion gap and mildly low CO2. She was persistently tachycardic in the ED with heart rate in the 130s to 150s. She was given a liter bolus of IV fluids with some improvement in her heart rate down to the 120s. She continues to complain of nausea and states that she feels unwell despite receiving medications. She states that she feels no better and feels unsafe going home. She was given another dose of Zofran without good improvement.. Given patient's persistent symptoms, decision was made to order CT chest, abdomen, and pelvis. And apparently interpreted this prior to radiology read and noted no acute findings. Given patient's intractable nausea and vomiting, weakness, hypokalemia, and dehydration, I feel she would benefit from admission for continued fluid resuscitation and monitoring. I called and had an interactive discussion with hospitalist who graciously accepted the patient for admission. Critical Care Critical Care Time Critical Care Time: No
--- NOTE | 2023-12-14 01:16 | PC.NURSE ---
contacted respiratory for breathing treatment on this patient.
[2023-12-14] MEDS: IPRATROPIUM/ALBUTEROL 3 ML NEB 9 ML IH (01:46)
[2023-12-14 02:28] LABS: Basophils # 0.1 K/mm3 (0-0.2); Basophils % 0.6 % (0.1-2.0); Eosinophils # 0.2 K/mm3 (0.0-0.4); Eosinophils % 1.2 % (0.1-12.0); Hematocrit 49.5 % (37.0-47.0); Hemoglobin 16.5 g/dL (12.2-16.2); Lymphocytes # 1.8 K/mm3 (0.7-4.5); Lymphocytes % 12.5 % (10-50); Mean Corpuscular HGB Conc 33.2 g/dL (31.8-35.4); Mean Corpuscular Hemoglobin 30.6 pg (27.0-31.2); Mean Corpuscular Volume 92.1 fl (81-99); Mean Platelet Volume 9.6 fl (7.4-10.4); Monocytes # 0.7 K/mm3 (0.1-1.0); Monocytes % 4.9 % (1.7-9.3); Neutrophils % 80.9 % (37.0-80.0); Platelet Count 263 K/mm3 (142-424); Red Blood Count 5.38 M/mm3 (4.20-5.40); Red Cell Distribution Width 15.2 % (11.5-17.5); White Blood Count 14.8 K/mm3 (4.8-10.8)
[2023-12-14 02:32] LABS: Lactic Acid 2.7 mmol/L (0.7-2.1)
--- NOTE | 2023-12-14 02:34 | CT_ITS ---
PROCEDURE INFORMATION: Exam: CT Chest Without Contrast; Diagnostic Exam date and time: 12/14/2023 3:20 AM Age: 57 years old Clinical indication: Condition or disease; Lung condition and disease; Respiratory failure; Additional info: Resp failure TECHNIQUE: Imaging protocol: Diagnostic computed tomography of the chest without contrast. Radiation optimization: All CT scans at this facility use at least one of these dose optimization techniques: automated exposure control; mA and/or kV adjustment per patient size (includes targeted exams where dose is matched to clinical indication); or iterative reconstruction. COMPARISON: CT ANGIO CHEST PE PROTOCOL 11/11/2023 12:39 AM FINDINGS: Lungs: There is nodular reticular interstitial thickening throughout the lungs. There is streaky subsegmental atelectasis noted at the lung bases including the lingula and right middle lobe. 2-3 mm discrete pleural-based and subpleural nodules are noted in the lungs. Pleural spaces: Unremarkable. No pneumothorax. No pleural effusion. Heart: Trace pericardial fluid is noted. Coronary arteries: There is no coronary artery calcification. Lymph nodes: Subcentimeter mediastinal lymph nodes are noted. Vasculature: Unremarkable. No aortic aneurysm. Liver: Calcified granulomas are noted in the liver and spleen. Kidneys and ureters: Incidental note is made of left renal atrophy. Bones/joints: Unremarkable. No acute fracture. Soft tissues: Unremarkable. IMPRESSION: Nodular interstitial disease in the lungs. Streaky atelectasis. Suggest follow-up in 4 weeks after presumptive therapy with noncontrast CT of the thorax document interval change. Granulomatous disease incidentally noted in the upper abdomen.
--- NOTE | 2023-12-14 02:34 | CT_ITS ---
PROCEDURE INFORMATION: Exam: CT Abdomen And Pelvis Without Contrast Exam date and time: 12/14/2023 3:20 AM Age: 57 years old Clinical indication: Nausea and vomiting; Abdominal pain; Additional info: Resp failure, abd pain, n/v/d TECHNIQUE: Imaging protocol: Computed tomography of the abdomen and pelvis without contrast. Radiation optimization: All CT scans at this facility use at least one of these dose optimization techniques: automated exposure control; mA and/or kV adjustment per patient size (includes targeted exams where dose is matched to clinical indication); or iterative reconstruction. COMPARISON: CT CHEST WO CON 12/14/2023 3:20 AM FINDINGS: Lungs: There is nodular interstitial disease with tree-in-bud pattern in the right lower lobe suggesting a bronchiolitis. Streaky lingular and right middle lobe atelectasis is also present. Liver: Calcified granulomas are noted in the liver. Gallbladder and bile ducts: Surgical clips in the gallbladder fossa compatible with a prior cholecystectomy. Pancreas: Normal. No ductal dilation. Spleen: A calcific granuloma is noted in the spleen. Adrenal glands: Normal. No mass. Kidneys and ureters: There is left renal atrophy. There is no evidence for hydronephrosis or urolithiasis. A calcification in the deep right pelvis is felt to be outside the ureter. Stomach and bowel: Unremarkable. No obstruction. No mucosal thickening. Appendix: No evidence of appendicitis. Intraperitoneal space: Unremarkable. No free air. No significant fluid collection. Vasculature: The abdominal aorta is normal in course and caliber with mild atheromatous calcification. There is a left renal artery stent present. Lymph nodes: Unremarkable. No enlarged lymph nodes. Urinary bladder: Unremarkable as visualized. Reproductive: Unremarkable as visualized. Bones/joints: Unremarkable. No acute fracture. Soft tissues: Unremarkable. Other findings: Noncontrast technique limits assessment. IMPRESSION: Limited noncontrast CT. No evidence for urolithiasis or obstructive uropathy. Left renal artery. Granulomatous disease in the liver and spleen. Nodular interstitial disease at the lung bases. Please correlate with recently performed CT of the thorax for more complete description.
[2023-12-14 02:58] LABS: Troponin I < 0.01 ng/ml (0.00-0.034)
[2023-12-14 03:04] LABS: Alanine Aminotransferase 18 U/L (12-78); Albumin Level 3.3 g/dl (3.5-5.0); Albumin/Globulin Ratio 0.8 (1.1-1.8); Alkaline Phosphatase 159 U/L (38-126); Anion Gap 18.9 mEq/L (5-15); Aspartate Amino Transferase 28 U/L (14-36); Bilirubin,Total 0.8 mg/dl (0.2-1.3); Blood Urea Nitrogen 5 mg/dl (7-17); Carbon Dioxide 16 mmol/L (22.0-30.0); Chloride 106 mmol/L (98-107); Creatinine Clearance Estimated 29 mL/min (50-200); Estimated Glomerular Filt Rate 39 ml/min (>60); GFR (African American) 47 ML/MIN (>60); Sodium 138 mmol/L (136-145); Total Protein,Serum 7.3 g/dl (6.3-8.2)
[2023-12-14 03:05] LABS: Calcium 7.4 mg/dl (8.4-10.2); Glucose 120 mg/dl (74-100); Potassium 2.9 mmoL/L (3.5-5.1)
[2023-12-14] MEDS: POTASSIUM CHLORIDE 20MEQ TAB 40 MEQ PO (03:31)
[2023-12-14] MEDS: METHYLPREDNISOLONE SOD SUCC 125MG VIAL 125 MG IV (03:49)
--- NOTE | 2023-12-14 05:40 | EXP.HP ---
History of Present Illness *Admission Date: 12/14/23 *Reason for visit:: n/v/d *History of present illness: This is a 57-year-old female with extensive past history of COPD, CHF, hepatitis C, history of IV drug use intermission, history of tobacco abuse, CAD, aortic regurgitation, renal artery stenosis, renal insufficiency, hypertension, hyperlipidemia, as well as prior cholecystectomy and hysterectomy presenting to the emergency department for evaluation with concern for nausea, vomiting, and diarrhea for 2 days. She stated that she has not been able to keep anything down. Per ER documentation, EMS reported they noted that she was breathing fast and had a low oxygen saturation in the 70s on room air, tachycardic with a heart rate in the 130s. Patient arrived complaining of generalized abdominal pain as well as nausea, but no other concerns noted at this time, such as chest pain or shortness of breath. She does note that she has been having chills. Admitted for management and treatment. [facility] Disclaimer: The information contained in this section may have been updated after the patient was seen, as this information can be updated by other users. 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 (Updated 12/14/23 @ 06:13 by Sree Jay APRN) Abnormal ECG Acute respiratory failure with hypoxia Anemia Anxiety Anxiety disorder Aortic regurgitation Apnea Back Pain Bronchiectasis without acute exacerbation CAD (coronary artery disease) Carotid artery disease without cerebral infarction Cervical radiculopathy Cervical spondylosis with radiculopathy Chronic headaches Chronic pain Congestive heart failure COPD (chronic obstructive pulmonary disease) Coronary artery disease COVID-19 Depression Diastolic congestive heart failure Elevated erythrocyte sedimentation rate Exacerbation of bronchiectasis due to infection Fatigue HCV (hepatitis C virus) History of intravenous drug use in remission Hoarseness Hyperlipidemia Insomnia Lipoma of abdominal wall LVH (left ventricular hypertrophy) Osteopenia Osteoporosis Osteoporosis without current pathological fracture Pneumonia Polysubstance abuse TOMY (renal artery stenosis) Renal insufficiency Severe aortic regurgitation Severe sepsis with acute organ dysfunction Skin abscess Syncope and collapse Tobacco abuse Unstable angina Surgical History History of arthroscopic knee surgery History of breast biopsy History of cancer surgery History of cardiac cath History of carpal tunnel release History of section History of colonoscopy History of coronary artery stent placement History of hernia repair History of hysterectomy History of ureter stent Hx of cholecystectomy Family History Other Family history of COPD (chronic obstructive pulmonary disease) Family history of anemia Family history of hyperlipidemia Family history of hypertension Social History Smoking Status: Unknown if ever smoked second hand exposure: No alcohol intake: never substance use type: painkillers current occupational status: disabled Travel in the last 8 weeks: None household members: friend(s) housing: house marital status: current occupational exposures/hazards: No caffeine: Yes Review of Systems Review of Systems Review of systems:: pertinent systems reviewed and negative unless documented below Meds Home Medications and Allergies Home Medications Medication Instructions Recorded Confirmed Type buprenorphine 8 mg-naloxone 2 mg 2 tab sublingual DAILY Opioid 03/21/23 12/14/23 History sublingual tablet dependence albuterol sulfate 90 mcg/actuation 2 puff inhalation Q6HP PRN 09/19/23 12/14/23 History aerosol inhaler Shortness Of Breath fluticasone fur. 100 mcg-umeclid 1 inh inhalation DAILY Copd 09/19/23 12/14/23 History 62.5 mcg-vilant 25 mcg inhalat.powder (Trelegy Ellipta) aspirin 81 mg tablet,delayed 81 mg PO DAILY Blood Thinner 12/14/23 12/14/23 History release clonazepam 0.5 mg tablet 0.5 mg PO QIDP PRN Anxiety 12/14/23 12/14/23 History escitalopram oxalate 20 mg tablet 20 mg PO DAILY Depression 12/14/23 12/14/23 History furosemide 20 mg tablet 20 mg PO DAILY Fluid 12/14/23 12/14/23 History gabapentin 600 mg tablet 600 mg PO TID NEUROPATHY 12/14/23 12/14/23 History ipratropium 0.5 mg-albuterol 3 mg 3 ml inhalation Q4HP PRN Shortness 12/14/23 12/14/23 History (2.5 mg base)/3 mL nebulization of air soln omeprazole 40 mg capsule,delayed 40 mg PO DAILY GERD 12/14/23 12/14/23 History release tizanidine 4 mg tablet 4 mg PO TIDP PRN MUSCLE SPASMS 12/14/23 12/14/23 History New Prescriptions to Start Prescriptions: Allergies Allergy/AdvReac Type Severity Reaction Status Date / Time atorvastatin AdvReac Intermediate myalgia Verified 11/06/23 11:06 propoxyphene [PROPOXYPHENE] AdvReac Unknown Nausea Verified 11/06/23 11:06 tramadol [TRAMADOL] AdvReac Unknown Nausea Verified 11/06/23 11:06 Exam Data for Last 24 hours Vital signs and Labs for Last 24 Hours: Temp Pulse Resp BP Pulse Ox O2 Del Method O2 Flow Rate 98.7 F 138 H 24 136/76 95 Nasal Cannula 2 12/14/23 00:29 12/14/23 03:30 12/14/23 03:30 12/14/23 03:30 12/14/23 03:30 12/14/23 03:30 12/14/23 03:30 Laboratory Results - last 24 hr 12/14/23 02:12: WBC 14.8 H, RBC 5.38, Hgb 16.5 H, Hct 49.5 H, MCV 92.1, MCH 30.6, MCHC 33.2, RDW 15.2, Plt Count 263, MPV 9.6, Neut % (Auto) 80.9 H, Lymph % (Auto) 12.5, [place] % (Auto) 4.9, Eos % (Auto) 1.2, Baso % (Auto) 0.6, Neut # (Auto) 12.0 H, Lymph # (Auto) 1.8, [place] # (Auto) 0.7, Eos # (Auto) 0.2, Baso # (Auto) 0.1, Sodium 138, Potassium 2.9 L*, Chloride 106, Carbon Dioxide 16 L, Anion Gap 18.9 H, BUN 5 L, Creatinine 1.40 H, Estimated Creat Clear 29, Estimated GFR 39 L, Est GFR ( Amer) 47 L, Glucose 120 H, Lactate 2.7 H, Calcium 7.4 L, Total Bilirubin 0.8, AST 28, ALT 18, Alkaline Phosphatase 159 H, Troponin I < 0.01, NT-Pro-B Natriuret Pep TNP, Total Protein 7.3, Albumin 3.3 L, Globulin 4.0 H, Albumin/Globulin Ratio 0.8 L, Lipase TNP I & O for Last 24 hours: Intake & Output 12/11/23 12/12/23 12/13/23 12/14/23 23:59 23:59 23:59 23:59 Weight 40.823 kg Constitutional Constitutional: thin and chronically ill appearing *Routine HEENT Exam Head: Present normocephalic Eye: Present EOMI ENT: Present mucous membranes dry *Routine Neck Exam Neck: Present full ROM *Routine Respiratory Exam Respiratory: Present accessory muscle use, wheezes, crackles (RLL) and symmetric chest movement *Routine Cardiovascular Exam Cardiovascular: Present tachycardia *Routine Abdominal Exam Abdominal: Present soft and normoactive bowel sounds; Absent tenderness *Routine Rectal Exam Rectal:: deferred *Routine Genitalia Exam Genitalia:: deferred *Routine Extremities Exam Extremities: Present full ROM *Routine Skin Exam Skin: Present intact *Routine Neurological Exam Neurological: Present alert and facial asymmetry H&P: Result Imaging and Cardiology EKG: Status: image reviewed by me and Preliminary report CT scan - abdomen: Status: image reviewed by me, Preliminary report and final report CT scan - chest: Status: image reviewed by me, Preliminary report and final report Assessment and Plan *Assessment and plan (1) Intractable nausea and vomiting: Status: Acute Category: Medical Code(s): R11.2 - Nausea with vomiting, unspecified (2) Hypokalemia: Status: Acute Category: Medical Code(s): E87.6 - Hypokalemia (3) CKD (chronic kidney disease): Status: Acute Qualifiers: Chronic kidney disease stage: unspecified stage Qualified Code(s): N18.9 - Chronic kidney disease, unspecified Category: Medical Code(s): N18.9 - Chronic kidney disease, unspecified (4) Hypertension: Status: Chronic Qualifiers: Hypertension type: essential hypertension Qualified Code(s): I10 - Essential (primary) hypertension Category: Medical Code(s): I10 - Essential (primary) hypertension (5) CAD (coronary artery disease): Status: Acute Qualifiers: Associated angina: without angina Coronary Disease-Associated Artery/Lesion type: [place] artery [place] vs. transplanted heart: [place] heart Qualified Code(s): I25.10 - Atherosclerotic heart disease of [place] coronary artery without angina pectoris Category: Medical Code(s): I25.10 - Atherosclerotic heart disease of [place] coronary artery without angina pectoris (6) Hyperlipidemia: Status: Acute Qualifiers: Hyperlipidemia type: unspecified Qualified Code(s): E78.5 - Hyperlipidemia, unspecified Category: Medical Code(s): E78.5 - Hyperlipidemia, unspecified (7) COPD (chronic obstructive pulmonary disease): Status: Acute Qualifiers: COPD type: unspecified COPD Qualified Code(s): J44.9 - Chronic obstructive pulmonary disease, unspecified Category: Medical Code(s): J44.9 - Chronic obstructive pulmonary disease, unspecified (8) Tobacco use: Status: Acute Category: Social Hx Code(s): Z72.0 - Tobacco use Plan 57-year-old female with extensive past history of COPD, CHF, hepatitis C, history of IV drug use intermission, history of tobacco abuse, CAD, aortic regurgitation, renal artery stenosis, renal insufficiency, hypertension, hyperlipidemia, as well as prior cholecystectomy and hysterectomy presenting to the emergency department for evaluation with concern for nausea, vomiting, and diarrhea for 2 days. Initial labs significant for hypokalemia. CT of abdomen was done. discussed with ER provider prior to admission. Requested admission for treatment of potassium deficiency, intractable nausea and vomiting. Medicine agreed to admit. Plan as follow: - Intractable n/v/d - Hypokalemia - Metabolic acidosis admit patient for medical management. dispo med-surg diarrhea panel ordered. pending BC culture pending No colitis on CT. Initiate Zofran for nausea and vomiting. Leukocytosis of 14, suspect reactive to nausea and vomiting. No other focal signs of infection. Will closely monitor and consider antibiotics if develops worsening symptoms of infection such as fever, increasing leukocytosis. Potassium low at 2.7, repletion both orally and IV. Repeat BMP this afternoon to monitor closely. Repeat CBC, CMP, magnesium ordered for the morning. Magnesium 1.0, replacing with 2 rounds of IV 2 g magnesium HUGO on CKD -Creatinine elevated at 1.4 hold nephrotoxic drugs -received 1L LR in ED -Continue gentle hydration Aortic valve regurgitation She was recently evaluated by Dr. Glover for possible surgical repair/replacement of aortic valve due to hx of dyspnea and syncopal events. Additionally, she is scheduled for heart cath and repeat echo on 12/20/[address] Meza. Most recent TTE on 08/23/22 showed LVEF 63% and moderate to severe aortic regurgitation COPD: Continue Trelegy daily, DuoNebs every 4 hours as needed and Chronic opiate dependence: Continue Suboxone 2 tabs daily per home regimen. Patient missed her medication on prior to onset of nausea and vomiting. Concern for component of her intractable nausea and vomiting. Anxiety: Continue Lexapro 20 mg and stay Li and Klonopin 0.5 mg 4 times a day as needed TOBACCO USE: nicotine patch PRN Neuropathy: Continue gabapentin 600 mg 3 times a day FULL CODE CARDIAC DIET DVT: levonox Rounded on patient after nurse practitioner. Personally examined and interviewed patient. Agree with exam findings and care plan as documented. Agree with plan above for replacement of potassium and treatment of nausea and vomiting. Patient tolerating breakfast by morning rounds. Reviewed patient's chart from , recent visit on 12/05 to the ER for COPD exacerbation. Treated with steroids and breathing treatments. No antibiotics prescribed at that time. White cell count was normal at 10, hemoglobin 13.3. Creatinine was 1.2, potassium 3.4, bicarb 22 on labs at that time.
[2023-12-14 06:02] LABS: Coronavirus 19, PCR Not Detected (NotDetected); Influenza A, PCR Not Detected (NotDetected); Influenza B, PCR Not Detected (NotDetected)
[2023-12-14 06:25] LABS: Reflex Lactic Add Lactic Reflex
--- NOTE | 2023-12-14 07:48 | PC.NURSE ---
Notified Radha Savage RN of critical mag
[2023-12-14 08:02] LABS: Lipase 34 U/L (23-300)
[2023-12-14 08:04] LABS: Anion Gap 13.8 mEq/L (5-15); Blood Urea Nitrogen 5 mg/dl (7-17); Carbon Dioxide 14 mmol/L (22.0-30.0); Chloride 110 mmol/L (98-107); Creatinine Clearance Estimated 32 mL/min (50-200); Estimated Glomerular Filt Rate 42 ml/min (>60); GFR (African American) 51 ML/MIN (>60); Glucose 135 mg/dl (74-100); Sodium 135 mmol/L (136-145)
[2023-12-14 08:06] LABS: Potassium 2.8 mmoL/L (3.5-5.1)
[2023-12-14 08:20] LABS: Troponin I 0.02 ng/ml (0.00-0.034)
[2023-12-14 08:48] LABS: Lactic Acid Follow Up (RFLX 1) 2.6 mmol/L (0.7-2.1)
[2023-12-14 08:48] LABS: D-Dimer 1.22 ug/mL (0.0-0.5)
[2023-12-14 08:55] LABS: NT Pro Brain Natriuretic Pep. 1430 pg/mL (0-125)
[2023-12-14] MEDS: 0.9 % SODIUM CHLORIDE 1000ML 1,000 ML 125 ML IV (09:02)
[2023-12-14] MEDS: MAGNESIUM SULFATE IN WATER 2 GM/50 ML PIGGYBACK IV ×2 (09:02→17:42)
[2023-12-14] MEDS: PANTOPRAZOLE 40MG TABLET 40 MG PO (09:09)
[2023-12-14] MEDS: GABAPENTIN 600MG TABLET 600 MG PO ×3 (09:09→20:27)
[2023-12-14] MEDS: ENOXAPARIN 40MG/0.4ML SYRINGE 40 MG SQ (09:09)
[2023-12-14] MEDS: CITALOPRAM 40MG TABLET 40 MG PO (09:09)
[2023-12-14] MEDS: POTASSIUM CHLORIDE 20MEQ TAB 20 MEQ PO ×2 (09:10→20:27)
[2023-12-14] MEDS: FLUTICASONE/UMECLIDIN/VILANTER 100/62.5/25MCG INHALER 1 PUFF IH (09:10)
[2023-12-14] MEDS: NICOTINE 21MG/24HR PATCH 21 MG TD (09:10)
[2023-12-14] MEDS: BUPRENORPHINE/NALOXONE 8MG/2MG ODT 2 EACH SL (09:12)
[2023-12-14] MEDS: clonazePAM 0.5MG TABLET 0.5 MG PO ×3 (09:14→20:27)
[2023-12-14] MEDS: KCl 20mEq/100ml 100 ML 50 MEQ IV ×3 (10:11→15:45)
[2023-12-14 10:30] LABS: Reflex Lactic (2 hrs) Add Lactic Reflex
--- NOTE | 2023-12-14 10:53 | ECG_ITS ---
APPROVED REPORT Exam: Resting ECG HR:153 bpm ECG Measurements Heart Rate 153 AXES [place] 114 P 72 QRSd 86 QRS 65 QT 323 T 66 QTc 409 Conclusion SINUS TACHYCARDIA WITH SHORT [place] INTERVAL WITH OCCASIONAL SUPRAVENTRICULAR PREMATURE COMPLEXES, POSSIBLE ATRIAL FLUTTER LEFT VENTRICULAR HYPERTROPHY AND ST-T CHANGE [VOLTAGE CRITERIA PLUS ST/T ABNORMALITY] CRITICAL TEST RESULT UNCONFIRMED REPORT Electronically signed by : Evaristo Gonzalez MD 12/14/2023 08:51:23
[2023-12-14 11:06] LABS: Lactic Acid Follow up (RFLX 2) 3.8 mmol/L (0.7-2.1)
--- NOTE | 2023-12-14 11:12 | HMH.PHAINT1 ---
Pharmacy Intervention Comments: MED LIST CORRECTED WITH FILL HX AND MD OFFICE NOTES.
[2023-12-14] MEDS: IPRATROPIUM/ALBUTEROL 3 ML NEB IH ×3 (11:25→23:33)
[2023-12-14 18:18] LABS: Chloride 112 mmol/L (98-107)
[2023-12-14 18:19] LABS: Potassium 3.5 mmoL/L (3.5-5.1); Sodium 139 mmol/L (136-145)
[2023-12-14 18:22] LABS: Anion Gap 13.5 mEq/L (5-15); Blood Urea Nitrogen 6 mg/dl (7-17); Calcium 7.4 mg/dl (8.4-10.2); Carbon Dioxide 17 mmol/L (22.0-30.0); Creatinine Clearance Estimated 32 mL/min (50-200); Estimated Glomerular Filt Rate 42 ml/min (>60); GFR (African American) 51 ML/MIN (>60); Glucose 179 mg/dl (74-100)
[2023-12-15] VITALS (11 sets, daily range): BP systolic 106–153; BP diastolic 60–86; PULSE 76–114; RESP 16–18; TEMP 36.5–36.8; O2SAT 98–100; BMI 19.2
[2023-12-15] MEDS: FLUTICASONE/UMECLIDIN/VILANTER 100/62.5/25MCG INHALER 1 PUFF IH (06:10)
[2023-12-15] MEDS: IPRATROPIUM/ALBUTEROL 3 ML NEB IH ×3 (06:10→18:28)
--- NOTE | 2023-12-15 06:55 | PC.NURSE ---
pt c/o being unable to pe since 2099. BS at 0615 with 634ml showing. in and out cathed per protocol, pulled 575ml and sent UA to lab
[2023-12-15 07:12] LABS: Microscopic, Urine URINE MICROSCOPIC (MICROSCOPIC)
[2023-12-15 07:14] LABS: Appearance,Urine CLEAR (Clear); Bilirubin,Urine Negative (Negative); Blood, Urine Negative (Negative); Color,Urine YELLOW (Yellow); Glucose,Urine (UA) Negative (Negative); Ketones,Urine Negative (Negative); Leukocyte Esterase,Urine Negative (Negative); Nitrate,Urine Negative (Negative); PH,Urine 6.5 (5.0-8.5); Protein,Urine Negative (Negative); Specific Gravity, Urine <= 1.005 (1.005-1.030); Urobilinogen,Urine 0.2 EU/dl (0.2)
[2023-12-15 07:28] LABS: Bacteria,Urine Trace /lpf; WBC,Urine Occasional #/hpf (0-3)
[2023-12-15] MEDS: PANTOPRAZOLE 40MG TABLET 40 MG PO (08:05)
[2023-12-15] MEDS: BUPRENORPHINE/NALOXONE 8MG/2MG ODT 2 EACH SL (08:05)
[2023-12-15] MEDS: clonazePAM 0.5MG TABLET 0.5 MG PO ×3 (08:05→20:26)
[2023-12-15] MEDS: CITALOPRAM 40MG TABLET 40 MG PO (08:05)
[2023-12-15] MEDS: GABAPENTIN 600MG TABLET 600 MG PO ×3 (08:05→20:26)
[2023-12-15] MEDS: ENOXAPARIN 40MG/0.4ML SYRINGE 40 MG SQ (08:06)
[2023-12-15] MEDS: POTASSIUM CHLORIDE 20MEQ TAB 20 MEQ PO ×2 (08:06→20:26)
[2023-12-15] MEDS: NICOTINE 21MG/24HR PATCH 21 MG TD (08:06)
[2023-12-15 08:27] LABS: Basophils % 0.1 % (0.1-2.0); Chloride 113 mmol/L (98-107); Eosinophils # 0.1 K/mm3 (0.0-0.4); Eosinophils % 0.7 % (0.1-12.0); Hematocrit 35.2 % (37.0-47.0); Hemoglobin 11.5 g/dL (12.2-16.2); Lymphocytes # 1.6 K/mm3 (0.7-4.5); Lymphocytes % 9.2 % (10-50); Mean Corpuscular HGB Conc 32.7 g/dL (31.8-35.4); Mean Corpuscular Hemoglobin 30.5 pg (27.0-31.2); Mean Corpuscular Volume 93.3 fl (81-99); Mean Platelet Volume 9.7 fl (7.4-10.4); Monocytes # 0.6 K/mm3 (0.1-1.0); Monocytes % 3.3 % (1.7-9.3); Neutrophils # 14.8 K/mm3 (1.8-7.8); Neutrophils % 86.7 % (37.0-80.0); Platelet Count 368 K/mm3 (142-424); Potassium 3.5 mmoL/L (3.5-5.1); Red Blood Count 3.77 M/mm3 (4.20-5.40); Red Cell Distribution Width 15.5 % (11.5-17.5); Sodium 139 mmol/L (136-145); White Blood Count 17.1 K/mm3 (4.8-10.8)
[2023-12-15 08:30] LABS: Alanine Aminotransferase 19 U/L (12-78); Albumin Level 2.8 g/dl (3.5-5.0); Albumin/Globulin Ratio 0.8 (1.1-1.8); Alkaline Phosphatase 116 U/L (38-126); Anion Gap 10.5 mEq/L (5-15); Aspartate Amino Transferase 26 U/L (14-36); Bilirubin,Total 0.3 mg/dl (0.2-1.3); Blood Urea Nitrogen 4 mg/dl (7-17); Carbon Dioxide 19 mmol/L (22.0-30.0); Creatinine Clearance Estimated 36 mL/min (50-200); Estimated Glomerular Filt Rate 42 ml/min (>60); GFR (African American) 51 ML/MIN (>60); Globulin 3.7 g/dL (1.3-3.2); Total Protein,Serum 6.5 g/dl (6.3-8.2)
[2023-12-15 08:31] LABS: Calcium 7.4 mg/dl (8.4-10.2); Glucose 109 mg/dl (74-100)
[2023-12-15 08:36] LABS: MANUAL DIFFERENTIAL MANUAL DIFFERENTIAL (MANUAL DIFF)
[2023-12-15 08:40] LABS: Magnesium 2.4 mg/dl (1.6-2.3)
[2023-12-15 09:39] LABS: Lymphocytes % 11 % (10-50); Monocytes % 2 % (2-9); Neutrophils % 87 % (42-76); Platelet Estimate Normal; RBC Morphology Normal; Total Cells Counted 100
[2023-12-15] MEDS: LEVOFLOXACIN/D5W 750 MG/150 ML 750 MG/150 ML PIGGYBACK 100 MG IV (10:11)
--- NOTE | 2023-12-15 14:08 | EXP.ACUTE.PN ---
Subjective *Date: 12/15/23 *Time: 14:45 Interval history: Patient is eating better and on baseline oxygen. No fever overnight. No vomiting. Still has not had a bowel movement though this is not uncommon for her, states she has a bowel movement every 1 to 2 weeks. Medical Exam Vital signs and Labs for Last 24 Hours: Vital Signs Temp Pulse Pulse Resp BP Pulse Ox O2 Del Method 12/15/23 12:00 110 H 12/15/23 11:43 98.0 F 112 H 18 118/70 100 Nasal Cannula 12/15/23 11:42 104 H 12/15/23 11:42 108 H 12/15/23 11:42 99 Nasal Cannula 12/15/23 08:00 Nasal Cannula 12/15/23 11:00 Nasal Cannula 12/15/23 09:00 Nasal Cannula 12/15/23 08:00 110 H 12/15/23 08:00 98.2 F 114 H 18 127/73 99 Nasal Cannula 12/15/23 06:57 Nasal Cannula 12/15/23 06:10 102 H 12/15/23 06:10 104 H 12/15/23 06:10 99 Nasal Cannula 12/15/23 04:00 98.3 F 93 H 18 125/73 98 Nasal Cannula 12/15/23 04:00 90 12/14/23 20:27 110 H 12/15/23 04:47 Nasal Cannula 12/15/23 03:00 Nasal Cannula 12/15/23 01:00 Nasal Cannula 12/15/23 00:00 Nasal Cannula 12/15/23 00:00 98.2 F 104 H 18 106/68 L 98 Nasal Cannula 12/14/23 23:32 Nasal Cannula 12/14/23 22:45 Nasal Cannula 12/14/23 20:00 97.8 F 106 H 20 157/86 H 100 12/14/23 21:00 Nasal Cannula 12/14/23 20:00 Nasal Cannula 12/14/23 18:43 Nasal Cannula 12/14/23 18:38 96 Nasal Cannula 12/14/23 17:00 Nasal Cannula 12/14/23 16:00 110 H 12/14/23 16:00 98.2 F 106 H 18 148/71 H 99 Nasal Cannula 12/14/23 14:17 Nasal Cannula O2 Flow Rate 12/15/23 12:00 12/15/23 11:43 2 12/15/23 11:42 12/15/23 11:42 12/15/23 11:42 2 12/15/23 08:00 2 12/15/23 11:00 2 12/15/23 09:00 2 12/15/23 08:00 12/15/23 08:00 2 12/15/23 06:57 2 12/15/23 06:10 12/15/23 06:10 12/15/23 06:10 2 12/15/23 04:00 2 12/15/23 04:00 12/14/23 20:27 12/15/23 04:47 2 12/15/23 03:00 2 12/15/23 01:00 2 12/15/23 00:00 2 12/15/23 00:00 2 12/14/23 23:32 2 12/14/23 22:45 2 12/14/23 20:00 2 12/14/23 21:00 2 12/14/23 20:00 2 12/14/23 18:43 2 12/14/23 18:38 2 12/14/23 17:00 2 12/14/23 16:00 12/14/23 16:00 2 12/14/23 14:17 2 Intake and Output 12/14/23 12/15/23 12/15/23 23:59 07:59 15:59 Intake Total 666 / 3296 360 / 720 360 / 720 Output Total 300 / 300 575 / 1125 550 / 1125 Balance 366 / 2996 -215 / -405 -190 / -405 Intake: Intake, Oral Amount 666 / 1796 360 / 720 360 / 720 Output: Output, Urine Amount 300 / 300 575 / 1125 550 / 1125 Other: Number of Voids 1 Number of Unmeasured Voids 1 0 Weight 47.4 kg Patient Weight 12/15/23 23:59 Weight 47.4 kg Laboratory Results - last 24 hr 12/14/23 18:08: Sodium 139, Potassium 3.5 D, Chloride 112 H, Carbon Dioxide 17 L, Anion Gap 13.5, BUN 6 L, Creatinine 1.30 H, Estimated Creat Clear 32, Estimated GFR 42 L, Est GFR ( Amer) 51 L, Glucose 179 H D, Calcium 7.4 L 12/15/23 06:30: Urine Color Yellow, Urine Appearance Clear, Urine pH 6.5, Ur Specific [place] <= 1.005, Urine Protein Negative, Urine Glucose (UA) Negative, Urine Ketones Negative, Urine Blood Negative, Urine Nitrate Negative, Urine Bilirubin Negative, Urine Urobilinogen 0.2, Ur Leukocyte Esterase Negative, Urine RBC None, Urine WBC Occasional, Ur Squamous Epith Cells 3-5, Urine Bacteria Trace 12/15/23 07:45: WBC 17.1 H, RBC 3.77 L D, Hgb 11.5 L, Hct 35.2 L, MCV 93.3, MCH 30.5, MCHC 32.7, RDW 15.5, Plt Count 368 D, MPV 9.7, Neut % (Auto) 86.7 H, Lymph % (Auto) 9.2 L, [place] % (Auto) 3.3, Eos % (Auto) 0.7, Baso % (Auto) 0.1, Neut # (Auto) 14.8 H, Lymph # (Auto) 1.6, [place] # (Auto) 0.6, Eos # (Auto) 0.1, Baso # (Auto) 0.0, Total Counted 100, Neutrophils % (Manual) 87 H, Lymphocytes % (Manual) 11, Monocytes % (Manual) 2, Platelet Estimate Normal, RBC Morphology Normal, Sodium 139, Potassium 3.5, Chloride 113 H, Carbon Dioxide 19 L, Anion Gap 10.5, BUN 4 L D, Creatinine 1.30 H, Estimated Creat Clear 36, Estimated GFR 42 L, Est GFR ( Amer) 51 L, Glucose 109 H D, Calcium 7.4 L, Magnesium 2.4 H D, Total Bilirubin 0.3, AST 26, ALT 19, Alkaline Phosphatase 116, Total Protein 6.5, Albumin 2.8 L D, Globulin 3.7 H, Albumin/Globulin Ratio 0.8 L I & O for Labs for Last 24 Hours: Intake & Output 12/12/23 12/13/23 12/14/23 12/15/23 23:59 23:59 23:59 23:59 Intake Total 2936 / 3296 720 / 720 Output Total 300 / 300 1125 / 1125 Balance 2636 / 2996 -405 / -405 Weight 41.912 kg 47.4 kg Constitutional: Present no acute distress, average body habitus and chronically ill appearing Head: Present atraumatic and normocephalic Eyes: Present as per HPI ENT: Present normal exam Respiratory: Present prolonged expiratory phase and diminished air movement; Absent accessory muscle use, rhonchi, wheezes or crackles Comment:: wet cough Cardiac: Present Reg Rate and Rhythm and S1/S2; Absent No Murmur GI: Present soft; Absent distention or tenderness Extremities: Present normal inspection; Absent tenderness or edema Skin: Present intact; Absent erythema Neuro: Present alert, awake, oriented x 3 and moves all extremities Additional Findings:: poor insight to condition and prognosis Assessment and Plan *Assessment and plan (1) Intractable nausea and vomiting: Status: Acute Category: Medical Code(s): R11.2 - Nausea with vomiting, unspecified (2) Hypokalemia: Status: Acute Category: Medical Code(s): E87.6 - Hypokalemia (3) CKD (chronic kidney disease): Status: Acute Qualifiers: Chronic kidney disease stage: unspecified stage Qualified Code(s): N18.9 - Chronic kidney disease, unspecified Category: Medical Code(s): N18.9 - Chronic kidney disease, unspecified (4) Hypertension: Status: Chronic Qualifiers: Hypertension type: essential hypertension Qualified Code(s): I10 - Essential (primary) hypertension Category: Medical Code(s): I10 - Essential (primary) hypertension (5) CAD (coronary artery disease): Status: Acute Qualifiers: Associated angina: without angina Coronary Disease-Associated Artery/Lesion type: [place] artery [place] vs. transplanted heart: [place] heart Qualified Code(s): I25.10 - Atherosclerotic heart disease of [place] coronary artery without angina pectoris Category: Medical Code(s): I25.10 - Atherosclerotic heart disease of [place] coronary artery without angina pectoris (6) Hyperlipidemia: Status: Acute Qualifiers: Hyperlipidemia type: unspecified Qualified Code(s): E78.5 - Hyperlipidemia, unspecified Category: Medical Code(s): E78.5 - Hyperlipidemia, unspecified (7) COPD (chronic obstructive pulmonary disease): Status: Acute Qualifiers: COPD type: unspecified COPD Qualified Code(s): J44.9 - Chronic obstructive pulmonary disease, unspecified Category: Medical Code(s): J44.9 - Chronic obstructive pulmonary disease, unspecified (8) Tobacco use: Status: Acute Category: Social Hx Code(s): Z72.0 - Tobacco use Plan 57-year-old female with extensive past history of COPD, CHF, hepatitis C, history of IV drug use intermission, history of tobacco abuse, CAD, aortic regurgitation, renal artery stenosis, renal insufficiency, hypertension, hyperlipidemia, as well as prior cholecystectomy and hysterectomy presenting to the emergency department for evaluation with concern for nausea, vomiting, and diarrhea for 2 days. Initial labs significant for hypokalemia. CT of abdomen was done. discussed with ER provider prior to admission. Requested admission for treatment of potassium deficiency, intractable nausea and vomiting. Patient's nausea and vomiting is resolved. Tolerating p.o. intake. At this point needs eval for safe dispo home with PT and OT. Has developed leukocytosis of unexplained source. Started on antibiotics for possible COPD exacerbation. Would like to repeat labs in the morning. Case management assisting with unstable housing. Problems addressed as follows: - Intractable n/v/d - Hypokalemia - Metabolic acidosis Differential diagnosis includes gastroenteritis versus medication withdrawal diarrhea panel ordered. pending BC culture pending Continue Zofran as needed. No emesis in the past 48 hours. Was elevated again today at 17. Unclear etiology. Will initiate levofloxacin once daily out of concern for COPD exacerbation component versus GI source. Repeat CBC, CMP, magnesium ordered for the morning. Electrolytes better today with magnesium of 2.4 and potassium of 3.5. No repletion today. HUGO on CKD -Creatinine at 1.3, BUN of 4. Appears to be her baseline. No further IV fluids. Tolerating p.o. liquids. Caution with nephrotoxins. Aortic valve regurgitation She was recently evaluated by Dr. Glover for possible surgical repair/replacement of aortic valve due to hx of dyspnea and syncopal events. Additionally, she is scheduled for heart cath and repeat echo on 12/20/[address] Meza. Most recent TTE on 08/23/22 showed LVEF 63% and moderate to severe aortic regurgitation COPD: Continue Trelegy daily, DuoNebs every 4 hours as needed Chronic opiate dependence: Continue Suboxone 2 tabs daily per home regimen. Patient missed her medication on prior to onset of nausea and vomiting. Concern for component of her intractable nausea and vomiting. Anxiety: Continue Lexapro 20 mg and stay Li and Klonopin 0.5 mg 4 times a day as needed TOBACCO USE: nicotine patch PRN Neuropathy: Continue gabapentin 600 mg 3 times a day FULL CODE CARDIAC DIET DVT: levonox
[2023-12-15] MEDS: ONDANSETRON 4MG/2ML VIAL 4 MG IV (14:22)
[2023-12-15] MEDS: SENNOSIDES 8.6MG/DOCUSATE 50MG TABLET 1 TAB PO (15:51)
[2023-12-16] VITALS: BP 111/79; PULSE 100; PULSE 95; RESP 18; TEMP 36.9; O2SAT 98
[2023-12-16] MEDS: NYSTATIN SUSP 500,000 UNITS/5ML UDC 500000 UNIT PO ×3 (00:58→13:19)
[2023-12-16 04:00] VITALS: BP 134/77; PULSE 85; PULSE 90; RESP 18; TEMP 36.9; O2SAT 99; BMI 21.2
--- NOTE | 2023-12-16 06:00 | PC.NURSE ---
Pt is alert and oriented. Pt ambulates to the restroom with standby assist. Pt complained of her mouth feeling like thrush, notified MD, new orders carried out. Pt has had no other complaints this shift. Pt remains on 2L NC baseline with O2 >90%. Call light in reach.
[2023-12-16] MEDS: FLUTICASONE/UMECLIDIN/VILANTER 100/62.5/25MCG INHALER 1 PUFF IH (06:28)
[2023-12-16] MEDS: ONDANSETRON 4MG/2ML VIAL 4 MG IV (06:40)
[2023-12-16] MEDS: clonazePAM 0.5MG TABLET 0.5 MG PO ×2 (06:40→13:19)
[2023-12-16 07:16] LABS: Basophils % 0.3 % (0.1-2.0); Eosinophils # 0.1 K/mm3 (0.0-0.4); Eosinophils % 1.7 % (0.1-12.0); Hematocrit 33.1 % (37.0-47.0); Hemoglobin 10.8 g/dL (12.2-16.2); Lymphocytes # 1.3 K/mm3 (0.7-4.5); Lymphocytes % 16.2 % (10-50); Mean Corpuscular HGB Conc 32.6 g/dL (31.8-35.4); Mean Corpuscular Hemoglobin 30.6 pg (27.0-31.2); Mean Platelet Volume 10.9 fl (7.4-10.4); Monocytes # 0.4 K/mm3 (0.1-1.0); Monocytes % 4.4 % (1.7-9.3); Neutrophils # 6.4 K/mm3 (1.8-7.8); Neutrophils % 77.4 % (37.0-80.0); Platelet Count 317 K/mm3 (142-424); Red Blood Count 3.53 M/mm3 (4.20-5.40); Red Cell Distribution Width 15.7 % (11.5-17.5); White Blood Count 8.2 K/mm3 (4.8-10.8)
[2023-12-16 07:45] LABS: Alanine Aminotransferase 13 U/L (12-78); Albumin Level 2.4 g/dl (3.5-5.0); Albumin/Globulin Ratio 0.8 (1.1-1.8); Alkaline Phosphatase 87 U/L (38-126); Aspartate Amino Transferase 22 U/L (14-36); Bilirubin,Total 0.3 mg/dl (0.2-1.3); Blood Urea Nitrogen 4 mg/dl (7-17); Calcium 7.4 mg/dl (8.4-10.2); Carbon Dioxide 17 mmol/L (22.0-30.0); Chloride 116 mmol/L (98-107); Creatinine Clearance Estimated 40 mL/min (50-200); Estimated Glomerular Filt Rate 42 ml/min (>60); GFR (African American) 51 ML/MIN (>60); Globulin 3.2 g/dL (1.3-3.2); Glucose 70 mg/dl (74-100); Magnesium 1.7 mg/dl (1.6-2.3); Sodium 138 mmol/L (136-145); Total Protein,Serum 5.6 g/dl (6.3-8.2)
--- NOTE | 2023-12-16 07:47 | SW/DCPLANNER ---
I spoke w/ this patient regarding plans once medically stable for discharge. Patient stated that at this time she plans to return home w/ friends in [place]. Patient stated that she will have transportation and has started process for housing. The plan for this patient is to return home today. I did provide this patient w/ [facility] Resource List.
[2023-12-16 07:51] LABS: Anion Gap 8.4 mEq/L (5-15); Potassium 3.4 mmoL/L (3.5-5.1)
[2023-12-16 08:00] VITALS: BP 150/77; PULSE 100; RESP 18; TEMP 37.1; O2SAT 97
[2023-12-16] MEDS: NICOTINE 21MG/24HR PATCH 21 MG TD (08:13)
[2023-12-16] MEDS: ENOXAPARIN 40MG/0.4ML SYRINGE 40 MG SQ (08:13)
[2023-12-16] MEDS: BUPRENORPHINE/NALOXONE 8MG/2MG ODT 2 EACH SL (08:13)
[2023-12-16] MEDS: CITALOPRAM 40MG TABLET 40 MG PO (08:13)
[2023-12-16] MEDS: GABAPENTIN 600MG TABLET 600 MG PO ×2 (08:13→13:19)
[2023-12-16] MEDS: SENNOSIDES 8.6MG/DOCUSATE 50MG TABLET 1 TAB PO (08:13)
[2023-12-16] MEDS: POTASSIUM CHLORIDE 20MEQ TAB 20 MEQ PO (08:13)
[2023-12-16] MEDS: PANTOPRAZOLE 40MG TABLET 40 MG PO (08:13)
[2023-12-16] MEDS: MAGNESIUM OXIDE 400MG TABLET 400 MG PO (08:57)
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
--- NOTE | 2023-12-16 11:27 | EXP.DC.SUM ---
General Admission date:: 12/14/23 Discharge date: 12/16/23 HPI HPI HPI: This is a 57-year-old female with extensive past history of COPD, CHF, hepatitis C, history of IV drug use intermission, history of tobacco abuse, CAD, aortic regurgitation, renal artery stenosis, renal insufficiency, hypertension, hyperlipidemia, as well as prior cholecystectomy and hysterectomy presenting to the emergency department for evaluation with concern for nausea, vomiting, and diarrhea for 2 days. She stated that she has not been able to keep anything down. Per ER documentation, EMS reported they noted that she was breathing fast and had a low oxygen saturation in the 70s on room air, tachycardic with a heart rate in the 130s. Patient arrived complaining of generalized abdominal pain as well as nausea, but no other concerns noted at this time, such as chest pain or shortness of breath. She does note that she has been having chills. Admitted for management and treatment. Hospital Course Hospital Course Hospital Course: 57-year-old female with extensive past history of COPD, CHF, hepatitis C, history of IV drug use intermission, history of tobacco abuse, CAD, aortic regurgitation, renal artery stenosis, renal insufficiency, hypertension, hyperlipidemia, as well as prior cholecystectomy and hysterectomy presenting to the emergency department for evaluation with concern for nausea, vomiting, and diarrhea for 2 days. Initial labs significant for hypokalemia. CT of abdomen was done. discussed with ER provider prior to admission. Requested admission for treatment of potassium deficiency, intractable nausea and vomiting. Patient's nausea and vomiting is resolved. Tolerating p.o. intake. Evaluated by therapy and socially responsible investment adviser, safe to discharge home. Problems during hospitalization addressed as follows: - Intractable n/v/d - Hypokalemia - Metabolic acidosis Differential diagnosis includes gastroenteritis versus medication withdrawal. Patient's symptoms improved rapidly after resuming medications and treating her nausea. No diarrhea during admission. Blood cultures negative. Responded well to Zofran. Labs normalized with stable electrolytes. Given improvement, meeting criteria for discharge home. Potassium normal on day of discharge, kidney function at baseline. Magnesium 1.7. Will continue magnesium orally to promote bowel movements as well as for repletion. Recommend repeat CBC, CMP, magnesium in 1 to 2 weeks follow-up with PCP HUGO on CKD: Creatinine at 1.3, BUN of 4 on day of discharge. Renal function normalized with improved hydration and fluid resuscitation during admission. Aortic valve regurgitation She was recently evaluated by Dr. Glover for possible surgical repair/replacement of aortic valve due to hx of dyspnea and syncopal events. Additionally, she is scheduled for heart cath and repeat echo on 12/20/[address] Meza. Most recent TTE on 08/23/22 showed LVEF 63% and moderate to severe aortic regurgitation COPD: Continue Trelegy daily, DuoNebs every 4 hours as needed. Requiring oxygen intermittently during admission. Because of white count and recent COPD exacerbation for which she was seen at prior to admission and [facility], patient was initiated on Levaquin. Plan to complete 5-day course of antibiotics for COPD exacerbation. White cell count normalized by day of discharge to 8.2. No focal signs of pneumonia on imaging. Chronic opiate dependence: Continue Suboxone 2 tabs daily per home regimen. Patient missed her medication on prior to onset of nausea and vomiting. Concern for component of her intractable nausea and vomiting. Anxiety: Continue Lexapro 20 mg and stay Li and Klonopin 0.5 mg 4 times a day as needed TOBACCO USE: nicotine patch PRN Neuropathy: Continue gabapentin 600 mg 3 times a day Exam Data for Last 24 hours Vital signs and Labs for Last 24 Hours: Temp Pulse Resp BP Pulse Ox O2 Del Method O2 Flow Rate 98.3 F 102 H 18 125/73 99 Nasal Cannula 2 12/15/23 04:00 12/15/23 06:10 12/15/23 04:00 12/15/23 04:00 12/15/23 06:10 12/15/23 06:57 12/15/23 06:57 Laboratory Results - last 24 hr 12/14/23 02:12: D-Dimer 1.22 H 12/14/23 06:25: Sodium 135 L, Potassium 2.8 L*, Chloride 110 H, Carbon Dioxide 14 L, Anion Gap 13.8, BUN 5 L, Creatinine 1.30 H, Estimated Creat Clear 32, Estimated GFR 42 L, Est GFR ( Amer) 51 L, Glucose 135 H, Calcium 7.0 L, Magnesium 1.0 L, Troponin I 0.02, NT-Pro-B Natriuret Pep Cancelled, Lipase 34 12/14/23 08:25: Lactate 2.6 H, NT-Pro-B Natriuret Pep 1430 H 12/14/23 10:46: Lactate 3.8 H 12/14/23 18:08: Sodium 139, Potassium 3.5 D, Chloride 112 H, Carbon Dioxide 17 L, Anion Gap 13.5, BUN 6 L, Creatinine 1.30 H, Estimated Creat Clear 32, Estimated GFR 42 L, Est GFR ( Amer) 51 L, Glucose 179 H D, Calcium 7.4 L 12/15/23 06:30: Urine Color Yellow, Urine Appearance Clear, Urine pH 6.5, Ur Specific [place] <= 1.005, Urine Protein Negative, Urine Glucose (UA) Negative, Urine Ketones Negative, Urine Blood Negative, Urine Nitrate Negative, Urine Bilirubin Negative, Urine Urobilinogen 0.2, Ur Leukocyte Esterase Negative I & O for Last 24 hours: Intake & Output 12/12/23 12/13/23 12/14/23 12/15/23 23:59 23:59 23:59 23:59 Intake Total 2936 / 3296 360 / 360 Output Total 300 / 300 575 / 575 Balance 2636 / 2996 -215 / -215 Weight 41.912 kg 47.4 kg Constitutional Constitutional: no acute distress, average body habitus, thin and chronically ill appearing *Routine HEENT Exam Head: Present normocephalic and atraumatic Eye: Present EOMI and PERRL ENT: Present mucous membranes moist *Routine Neck Exam Neck: Present supple; Absent JVD *Routine Respiratory Exam Respiratory: Present prolonged expiratory phase, wheezes and normal respiratory effort; Absent accessory muscle use, rhonchi or crackles *Routine Cardiovascular Exam Cardiovascular: Present RRR *Routine Abdominal Exam Abdominal: Present soft and normoactive bowel sounds; Absent tenderness *Routine Rectal Exam Patient deferred: visual exam *Routine Exam Patient deferred: external exam *Routine Extremities Exam Extremities: Absent cyanosis, clubbing or edema *Routine Skin Exam Skin: Present intact; Absent cyanosis, erythema or pallor *Routine Neurological Exam Neurological: Present alert, oriented X3, CN II-XII intact and moving all extremities; Absent altered mental status Routine Psychiatric Exam Psychiatric: Present normal affect, normal thought process and cooperative Results Data Completed and Pending Labs on day of discharge: Labs from last 24 hours 12/15/23 12/14/23 12/14/23 06:30 18:08 10:46 D-Dimer Sodium 139 Potassium 3.5 D Chloride 112 H Carbon Dioxide 17 L Anion Gap 13.5 BUN 6 L Creatinine 1.30 H Estimated Creat Clear 32 Estimated GFR 42 L Est GFR ( Amer) 51 L Glucose 179 H D Lactate 3.8 H Calcium 7.4 L Magnesium Troponin I NT-Pro-B Natriuret Pep Lipase Urine Color Yellow Urine Appearance Clear Urine pH 6.5 Ur Specific [place] <= 1.005 Urine Protein Negative Urine Glucose (UA) Negative Urine Ketones Negative Urine Blood Negative Urine Nitrate Negative Urine Bilirubin Negative Urine Urobilinogen 0.2 Ur Leukocyte Esterase Negative 12/14/23 12/14/23 12/14/23 08:25 06:25 02:12 D-Dimer 1.22 H Sodium 135 L Potassium 2.8 L* Chloride 110 H Carbon Dioxide 14 L Anion Gap 13.8 BUN 5 L Creatinine 1.30 H Estimated Creat Clear 32 Estimated GFR 42 L Est GFR ( Amer) 51 L Glucose 135 H Lactate 2.6 H Calcium 7.0 L Magnesium 1.0 L Troponin I 0.02 NT-Pro-B Natriuret Pep 1430 H Cancelled Lipase 34 Urine Color Urine Appearance Urine pH Ur Specific [place] Urine Protein Urine Glucose (UA) Urine Ketones Urine Blood Urine Nitrate Urine Bilirubin Urine Urobilinogen Ur Leukocyte Esterase DS: Diagnosis Discharge Diagnosis (1) Intractable nausea and vomiting: Status: Acute Code(s): R11.2 - Nausea with vomiting, unspecified (2) Hypokalemia: Status: Acute Code(s): E87.6 - Hypokalemia (3) CKD (chronic kidney disease): Status: Acute Code(s): N18.9 - Chronic kidney disease, unspecified Qualifiers: Chronic kidney disease stage: unspecified stage Qualified Code(s): N18.9 - Chronic kidney disease, unspecified (4) Hypertension: Status: Chronic Code(s): I10 - Essential (primary) hypertension Qualifiers: Hypertension type: essential hypertension Qualified Code(s): I10 - Essential (primary) hypertension (5) CAD (coronary artery disease): Status: Acute Code(s): I25.10 - Atherosclerotic heart disease of [place] coronary artery without angina pectoris Qualifiers: Associated angina: without angina Coronary Disease-Associated Artery/Lesion type: [place] artery [place] vs. transplanted heart: creek heart Qualified Code(s): I25.10 - Atherosclerotic heart disease of [place] coronary artery without angina pectoris (6) Hyperlipidemia: Status: Acute Code(s): E78.5 - Hyperlipidemia, unspecified Qualifiers: Hyperlipidemia type: unspecified Qualified Code(s): E78.5 - Hyperlipidemia, unspecified (7) COPD (chronic obstructive pulmonary disease): Status: Acute Code(s): J44.9 - Chronic obstructive pulmonary disease, unspecified Qualifiers: COPD type: unspecified COPD Qualified Code(s): J44.9 - Chronic obstructive pulmonary disease, unspecified (8) Tobacco use: Status: Acute Code(s): Z72.0 - Tobacco use Meds Home Medications and Allergies Home Medications Medication Instructions Recorded Confirmed Type buprenorphine 8 mg-naloxone 2 mg 2 tab sublingual DAILY Opioid 03/21/23 12/14/23 History sublingual tablet dependence albuterol sulfate 90 mcg/actuation 2 puff inhalation Q6HP PRN 09/19/23 12/14/23 History aerosol inhaler Shortness Of Breath fluticasone fur. 100 mcg-umeclid 1 inh inhalation DAILY Copd 09/19/23 12/14/23 History 62.5 mcg-vilant 25 mcg inhalat.powder (Trelegy Ellipta) aspirin 81 mg tablet,delayed 81 mg PO DAILY Blood Thinner 12/14/23 12/14/23 History release clonazepam 0.5 mg tablet 0.5 mg PO QIDP PRN Anxiety 12/14/23 12/14/23 History escitalopram oxalate 20 mg tablet 20 mg PO DAILY Depression 12/14/23 12/14/23 History furosemide 20 mg tablet 20 mg PO DAILY Fluid 12/14/23 12/14/23 History gabapentin 600 mg tablet 600 mg PO TID NEUROPATHY 12/14/23 12/14/23 History ipratropium 0.5 mg-albuterol 3 mg 3 ml inhalation Q4HP PRN Shortness 12/14/23 12/14/23 History (2.5 mg base)/3 mL nebulization of air soln omeprazole 40 mg capsule,delayed 40 mg PO DAILY GERD 12/14/23 12/14/23 History release tizanidine 4 mg tablet 4 mg PO TIDP PRN MUSCLE SPASMS 12/14/23 12/14/23 History levofloxacin 750 mg tablet 750 mg PO Q48H 3 days #2 tabs 12/16/23 Rx magnesium oxide 400 mg (241.3 mg 400 mg PO DAILY 30 days #30 tabs 12/16/23 Rx magnesium) tablet nicotine 21 mg/24 hr daily 21 mg transdermal DAILY 28 days 12/16/23 Rx transdermal patch #28 ea nystatin 100,000 unit/mL oral 500,000 unit (5 mL) PO QID 8 days 12/16/23 Rx suspension #160 mL sennosides 8.6 mg-docusate sodium 1 tab PO DAILY 30 days #30 tabs 12/16/23 Rx 50 mg tablet (Stool Softener-Stimulant Laxative) New Prescriptions to Start Prescriptions: levofloxacin Sarah,River magnesium oxide Sarah,River nicotine Sarah,River nystatin Sarah,River sennosides-docusate sodium [Stool Softener-Stimulant Laxat] River Smith Allergies Allergy/AdvReac Type Severity Reaction Status Date / Time atorvastatin AdvReac Intermediate myalgia Verified 11/06/23 11:06 propoxyphene [PROPOXYPHENE] AdvReac Unknown Nausea Verified 11/06/23 11:06 tramadol [TRAMADOL] AdvReac Unknown Nausea Verified 11/06/23 11:06 Discharge Plan Disposition Patient Disposition: Home, Self-Care Condition: Good Follow up Plan Follow up with: Kayy Warren PA [Primary Care Provider] - 12/25/23 10:45 am Prescriptions/Medication Reconciliation: New nystatin 100,000 unit/mL Suspension 500,000 unit PO QID 8 Days Qty: 160 0RF sennosides-docusate sodium [Stool Softener-Stimulant Laxat] 8.6-50 mg Tablet 1 tab PO DAILY 30 Days Qty: 30 0RF magnesium oxide 400 mg (241.3 mg magnesium) Tablet 400 mg PO DAILY 30 Days Qty: 30 0RF nicotine 21 mg/24 hr Patch 24 Hour 21 mg transdermal DAILY 28 Days Qty: 28 0RF levofloxacin 750 mg tablet 750 mg PO Q48H 3 Days Qty: 2 0RF Rx Instructions: first dose 12/17, second dose 12/19 Continued Trelegy Ellipta 100-62.5-25 mcg blister with device 1 inh INHALATION DAILY albuterol sulfate 90 mcg/actuation HFA aerosol inhaler 2 puff inhalation Q6HP PRN (Reason: Shortness Of Breath) buprenorphine-naloxone 8-2 mg tablet, sublingual 2 tab SUBLINGUAL DAILY aspirin 81 mg tablet,delayed release (DR/EC) 81 mg PO DAILY gabapentin 600 mg tablet 600 mg PO TID ipratropium-albuterol 0.5 mg-3 mg(2.5 mg base)/3 mL solution for nebulization 3 ml INHALATION Q4HP PRN (Reason: Shortness of air) tizanidine 4 mg tablet 4 mg PO TIDP PRN (Reason: MUSCLE SPASMS) clonazepam 0.5 mg tablet 0.5 mg PO QIDP PRN (Reason: Anxiety) omeprazole 40 mg capsule,delayed release(DR/EC) 40 mg PO DAILY furosemide 20 mg tablet 20 mg PO DAILY escitalopram oxalate 20 mg tablet 20 mg PO DAILY Problem Reconciliation Problems Reviewed?: Yes Patient Discharge Instructions ACTIVITY: Continue current activity DIET: continue same diet Patient Instructions: DI for Chronic Obstructive Pulmonary Disease, DI for Hypokalemia, Nausea and Vomiting-Adult, DI for Hypomagnesemia Providers Primary Care Provider: Kayy Warren Admit Provider: River Smith Attending Provider: River Smith
--- NOTE | 2023-12-16 11:52 | HMH.PTEV ---
Physical Therapy Evaluation Rehab PT IP Evaluation Start: 12/15/23 13:45 Freq: ONCE Status: Active Protocol: Document 12/16/23 11:48 ALDEN (Rec: 12/16/23 11:52 SHONNACONY [id number]) Subjective/History History History 57 yowf adm to [facility] with hypokalemia. PMH of HTN, HLD< IVD abuse, CAD, CHF, COPD, Hep C. She reports she is currently living with a friend with 2-3 [address] the home, and she is generally independent with all mobility and ADLs without an AD. Subjective Subjective Pt reports no current c/o, agrees to mobility assessment. New diagnosis of cancer in past 12 No months? Rehab PT IP Eval Objective Appearance Patient Behavior Appropriate Patient Orientation Person,Place,Time Difficulty following instructions none Speech Pattern Clear Ambulation Patient Able to Ambulate Yes Ambulation Observation IP General Gait Pattern Observation No Deviations/Normal Ambulation Distance (feet) 75 Ambulation Assistive Device None Ambulation Ability Independent Balance Ability to Arise Able, w/o using arms Sitting Balance Steady, safe Standing Balance Narrow stance w/o support Dynamic Sitting Balance Ability Good Dynamic Standing Balance Ability Good Transfers Bed Transfer Ability Independent Chair Transfer Ability Independent Sit to Stand Bed Transfer Ability Independent Sit to Stand Chair Transfer Ability Independent Rehab PT IP prob,goals,plan Problems Date of Evaluation: 12/16/23 Discharge Plan PT Discharge Plan Pt is currently appropriate to return home once medically stable for d/c. No inpatient therapy needs at this time. Eval Complexity Eval Charge Codes 05151 - High Complexity PHYSICIAN CERTIFICATION: I certify the specified therapy services for Brenda Rush are required, authorized, and reviewed every 30 days.
[2023-12-16 12:00] VITALS: BP 145/81; PULSE 100; PULSE 95; RESP 18; TEMP 37.1; O2SAT 96
--- NOTE | 2023-12-19 13:33 | CARE MANAGER ---
Contacted patient related to hospital discharge. Patient states she picked up all her medications and is aware of of her follow up appointment. She had heart cath yesterday and arteries were good. She denies questions or concerns. YULISSA Cortes
== END 2023-12-16 13:32 | disposition home or self-care (01) ==
LOC: ER 01:54 → 2ND 05:45
PROVIDERS: Nurse Practitioner Family; Admitting Provider Internal Medicine Adolescent Medicine; Emergency Provider Emergency Medicine; PCP Physician Assistant; Visit Provider Internal Medicine Adolescent Medicine
DX: E87.6 Hypokalemia (principal); R11.2 Nausea with vomiting, unspecified; I25.10 Atherosclerotic heart disease of native coronary artery without angina pectoris; I50.9 Heart failure, unspecified; J44.9 Chronic obstructive pulmonary disease, unspecified; I13.0 Hypertensive heart and chronic kidney disease with heart failure and stage 1 through stage 4 chronic kidney disease, or unspecified chronic kidney disease; N18.9 Chronic kidney disease, unspecified; I25.119 Atherosclerotic heart disease of native coronary artery with unspecified angina pectoris; E87.20 Acidosis, unspecified; I35.1 Nonrheumatic aortic (valve) insufficiency; F41.9 Anxiety disorder, unspecified; Z72.0 Tobacco use; G62.9 Polyneuropathy, unspecified; N17.9 Acute kidney failure, unspecified
CPT/HCPCS: 36415; 71045; 71250; 74176; 80048; 80053; 81001; 83605; 83690; 83735; 83880; 84484; 85007; 85025; 85378; 87040; 87636; 93005; 94640; 97163; 97165; 99285; G0378; J0131; J0574; J1956; J2405; J3475

== ENCOUNTER 2023-12-25 12:51 | Outpatient (CLI) | payer OTHER, SELFPAY ==
[2023-12-25 13:37] LABS: Barbiturates Screen,Urine Negative ng/ml (<200); Benzodiazepines Screen,Urine Positive ng/ml (<200)
[2023-12-25 13:38] LABS: Amphetamine/Metha Screen,Urine Negative ng/ml (<1000); Cannabinoid Screen,Urine Positive ng/ml (<50)
[2023-12-25 13:39] LABS: Cocaine Screen,Urine Negative ng/ml (<300)
[2023-12-25 13:40] LABS: Methadone Screen,Urine Negative ng/ml (<300); Opiate Screen,Urine Negative ng/ml (<300)
[2023-12-25 13:41] LABS: Phencyclidine Screen,Urine Negative ng/ml (<25)
[2023-12-29 17:23] LABS: Gabapentin,Urine 92.2 ug/mL (.)
[2023-12-31 18:07] LABS: Alprazolam Negative (Cutoff=100); Benzodiazepines Positive ng/mL (Cutoff=100); Clonazepam Positive (.); Clonazepam Confirm 759 ng/mL (Cutoff=100); Flurazepam Negative (Cutoff=100); Lorazepam Negative (Cutoff=100); Midazolam Negative (Cutoff=100); Temazepam Negative (Cutoff=100); Triazolam Negative (Cutoff=100)
== END 2023-12-25 23:59 ==
LOC: LAB.DROPOF 12:51
PROVIDERS: PCP Physician Assistant; Visit Provider Physician Assistant
DX: F41.9 Anxiety disorder, unspecified (principal); Z79.899 Other long term (current) drug therapy
CPT/HCPCS: 80307; 80346

== ENCOUNTER 2024-01-16 13:20 | Emergency (ER) | payer OTHER, SELFPAY ==
[2024-01-16] VITALS (7 sets, daily range): BP systolic 136–166; BP diastolic 72–89; PULSE 75–99; RESP 16–22; TEMP 36.6–36.8; O2SAT 98–100; BMI 16.5
--- NOTE | 2024-01-16 14:13 | XR_ITS ---
FINAL REPORT CLINICAL HISTORY: dyspnea COMPARISON: 12/14/2023 FINDINGS: SINGLE-VIEW CHEST The heart size is normal. The mediastinum is normal. The lungs are clear. There is no pneumothorax. IMPRESSION: No acute cardiopulmonary process. Reviewed, Interpreted and Dictated by Edward Espinoza III, MD Transcribed by Silvia Alford Authenticated and [facility]
--- NOTE | 2024-01-16 14:16 | [facility].EDCP ---
Discharge Plan Disposition Patient Disposition: Home, Self-Care Prescriptions Prescriptions: New promethazine 25 mg tablet 25 mg PO TID PRN (Reason: nausea and vomiting) 5 Days Qty: 20 0RF No Action albuterol sulfate [Ventolin HFA] 90 mcg/actuation HFA aerosol inhaler See Rx Instructions .ROUTE .COMPLEX Qty: 18 2RF Dose Instruction: INHALE 2 PUFFS BY MOUTH EVERY 6 HOURS Rx Instructions: INHALE 2 PUFFS BY MOUTH EVERY 6 HOURS Trelegy Ellipta 100-62.5-25 mcg blister with device 1 inh INHALATION DAILY buprenorphine-naloxone 8-2 mg tablet, sublingual 2 tab SUBLINGUAL DAILY aspirin 81 mg tablet,delayed release (DR/EC) 81 mg PO DAILY ipratropium-albuterol 0.5 mg-3 mg(2.5 mg base)/3 mL solution for nebulization 3 ml INHALATION Q4HP PRN (Reason: Shortness of air) tizanidine 4 mg tablet 4 mg PO TIDP PRN (Reason: MUSCLE SPASMS) omeprazole 40 mg capsule,delayed release(DR/EC) 40 mg PO DAILY furosemide 20 mg tablet 20 mg PO DAILY escitalopram oxalate 20 mg tablet 20 mg PO DAILY nystatin 100,000 unit/mL Suspension 500,000 unit PO QID 8 Days Qty: 160 0RF sennosides-docusate sodium [Stool Softener-Stimulant Laxat] 8.6-50 mg Tablet 1 tab PO DAILY 30 Days Qty: 30 0RF magnesium oxide 400 mg (241.3 mg magnesium) Tablet 400 mg PO DAILY 30 Days Qty: 30 0RF nicotine 21 mg/24 hr Patch 24 Hour 21 mg transdermal DAILY 28 Days Qty: 28 0RF Referrals Follow up/Referrals: Kayy Warren PA [Primary Care Provider] - See instructions Clinical Impressions Clinical Impression: Nausea vomiting and diarrhea, Chest pain Discharge ED Provider: Radha Bagley [facility] General Chief Complaint: Shortness of Breath/Dyspnea Stated Complaint: SOA Time Seen by Provider: 01/16/24 14:09 Mode of Arrival: EMS Source of Information: Patient Limitations: No Limitations Description of Symptoms (Recalled from ER Triage Doc. by RN): patient to ED via [facility] for complaints of SOA. She reports she could not breathe in shower and becamse dizzy, causing near syncaoble episode and falling. Patient has not had her oxygen in over 1 month due to roomate not allowing it in home. History of Present Illness HPI narrative: Patient is a 58-year-old female very well-known to this emergency department presenting today with multiple complaints. Primarily she states that she has had nausea vomiting and diarrhea over the last several days and feels dehydrated. She also states that she has had chest pain but is been ongoing unchanged over the last 24 hours. Nonexertional not associated with shortness of breath no radiation component associate with this. She also states she is been very anxious recently was discontinued by her primary care doctor on her Klonopin and her gabapentin because she states that she had marijuana in her system and they stopped her other medications as a result of that so she has had worsening anxiety. Any significant abdominal pain fevers chills etc. Related Data Home Medications Medication Instructions Recorded Confirmed buprenorphine 8 mg-naloxone 2 mg 2 tab sublingual DAILY Opioid 03/21/23 12/25/23 sublingual tablet dependence fluticasone fur. 100 mcg-umeclid 1 inh inhalation DAILY Copd 09/19/23 12/25/23 62.5 mcg-vilant 25 mcg inhalat.powder (Trelegy Ellipta) aspirin 81 mg tablet,delayed 81 mg PO DAILY Blood Thinner 12/14/23 12/25/23 release escitalopram oxalate 20 mg tablet 20 mg PO DAILY Depression 12/14/23 12/25/23 furosemide 20 mg tablet 20 mg PO DAILY Fluid 12/14/23 12/25/23 ipratropium 0.5 mg-albuterol 3 mg 3 ml inhalation Q4HP PRN Shortness 12/14/23 12/25/23 (2.5 mg base)/3 mL nebulization of air soln omeprazole 40 mg capsule,delayed 40 mg PO DAILY GERD 12/14/23 12/25/23 release tizanidine 4 mg tablet 4 mg PO TIDP PRN MUSCLE SPASMS 12/14/23 12/25/23 Previous Rx's Medication Instructions Recorded magnesium oxide 400 mg (241.3 mg 400 mg PO DAILY 30 days #30 tabs 12/16/23 magnesium) tablet nicotine 21 mg/24 hr daily 21 mg transdermal DAILY 28 days 12/16/23 transdermal patch #28 ea nystatin 100,000 unit/mL oral 500,000 unit (5 mL) PO QID 8 days 12/16/23 suspension #160 mL sennosides 8.6 mg-docusate sodium 1 tab PO DAILY 30 days #30 tabs 12/16/23 50 mg tablet (Stool Softener-Stimulant Laxative) albuterol sulfate 90 mcg/actuation See Rx Instructions .Route 12/25/23 aerosol inhaler (Ventolin HFA) .COMPLEX #18 grams promethazine 25 mg tablet 25 mg PO TID PRN nausea and 01/16/24 vomiting 5 days #20 tabs Allergies Allergy/AdvReac Type Severity Reaction Status Date / Time atorvastatin AdvReac Intermediate myalgia Verified 12/25/23 10:56 propoxyphene [PROPOXYPHENE] AdvReac Unknown Nausea Verified 12/25/23 10:56 tramadol [TRAMADOL] AdvReac Unknown Nausea Verified 12/25/23 10:56 PFSH PFS Disclaimer: The information contained in this section may have been updated after the patient was seen, as this information can be updated by other users. 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 (Updated 01/16/24 @ 14:16 by Radha Bagley MD) Abnormal ECG Acute respiratory failure with hypoxia Anemia Anxiety Anxiety disorder Aortic regurgitation Apnea Back Pain Bronchiectasis without acute exacerbation CAD (coronary artery disease) Carotid artery disease without cerebral infarction Cervical radiculopathy Cervical spondylosis with radiculopathy Chronic headaches Chronic pain Congestive heart failure COPD (chronic obstructive pulmonary disease) Coronary artery disease COVID-19 Depression Diastolic congestive heart failure Elevated erythrocyte sedimentation rate Exacerbation of bronchiectasis due to infection Fatigue HCV (hepatitis C virus) History of intravenous drug use in remission Hoarseness Hyperlipidemia Insomnia Lipoma of abdominal wall LVH (left ventricular hypertrophy) Osteopenia Osteoporosis Osteoporosis without current pathological fracture Pneumonia Polysubstance abuse TOMY (renal artery stenosis) Renal insufficiency Severe aortic regurgitation Severe sepsis with acute organ dysfunction Skin abscess Syncope and collapse Tobacco abuse Unstable angina Surgical History History of arthroscopic knee surgery History of breast biopsy History of cancer surgery History of cardiac cath History of carpal tunnel release History of section History of colonoscopy History of coronary artery stent placement History of hernia repair History of hysterectomy History of ureter stent Hx of cholecystectomy Family History Other Family history of COPD (chronic obstructive pulmonary disease) Family history of anemia Family history of hyperlipidemia Family history of hypertension Social History Smoking Status: Current every day smoker tobacco type: cigarettes packs per day: 1 second hand exposure: No alcohol intake: never substance use type: painkillers current occupational status: disabled Travel in the last 8 weeks: None household members: friend(s) housing: house marital status: current occupational exposures/hazards: No caffeine: Yes ROS Obtained: Yes All systems reviewed & no additional complaints except as documented Physical Exam General General appearance: alert Respiratory Respiratory exam: Present normal lung sounds bilaterally and respiratory distress Cardiovascular Cardiovascular exam: Present regular rate and normal rhythm Abdominal Exam Abdominal exam: Present soft; Absent distention or tenderness Neurological Exam Neurological exam: Present alert HEART Score HEART Score HEART Score assessment performed?: Yes History (anamnesis): Slightly suspicious ECG: Normal Age: 45-65 years Risk factors: 1-2 risk factors Troponin: </= normal limit HEART Score: 2 Critical Care Critical Care Time Critical Care Time: No Medical Decision Making Berry Inquiry Pt receiving controlled substance: No Vital Signs Vital Signs: 01/16/24 13:20 01/16/24 13:54 01/16/24 14:30 Temperature 98.2 F Temperature Source Oral Pulse Rate 83 75 Pulse Rate [Right] 99 H Respiratory Rate 22 20 16 Blood Pressure 138/81 141/72 H Blood Pressure [Right Arm] 148/89 H Blood Pressure Mean 100 95 Blood Pressure Mean [Right Arm] 108 Blood Pressure Position [Right Arm] Sitting 02 Sat by Pulse Oximetry 100 100 99 Oxygen Delivery Method Nasal Cannula Oxygen Flow Rate (LPM) 2 Lab Data Lab results reviewed: Yes I reviewed the patient's lab results. Labs: Lab Results 01/16/24 13:24: WBC 6.9, RBC 5.13, Hgb 16.1, Hct 48.9 H, MCV 95.3, MCH 31.4 H, MCHC 32.9, RDW 16.9, Plt Count 319, MPV 9.2, Neut % (Auto) 67.1, Lymph % (Auto) 26.6, [place] % (Auto) 4.4, Eos % (Auto) 1.6, Baso % (Auto) 0.3, Neut # (Auto) 4.6, Lymph # (Auto) 1.8, [place] # (Auto) 0.3, Eos # (Auto) 0.1, Baso # (Auto) 0.0, Sodium 142, Potassium 3.5, Chloride 108 H, Carbon Dioxide 21 L, Anion Gap 16.5 H, BUN 3 L, Creatinine 1.40 H, Estimated Creat Clear 29, Estimated GFR 39 L, Est GFR ( Amer) 47 L, Glucose 93, Calcium 9.7, Phosphorus 3.7, Magnesium 1.6, Total Bilirubin 0.7, AST 37 H, ALT 22, Alkaline Phosphatase 205 H, Troponin I < 0.01, Total Protein 8.7 H D, Albumin 4.2, Globulin 4.5 H, Albumin/Globulin Ratio 0.9 L 01/16/24 13:24 01/16/24 13:24 Response Orders (Tests/Meds): ED MEDICATIONS Generic Name Dose Route Start Last Admin Trade Name Freq PRN Reason Stop Dose Admin Lactated Ringer's 1,000 mls @ 999 mls/hr 01/16/24 14:15 01/16/24 14:32 Lactated Ringer's 1000 Ml Bag IV 01/16/24 15:15 999 mls/hr .Q1H1M CHAYA Administration Discontinued Medications Generic Name Dose Route Start Last Admin Trade Name Freq PRN Reason Stop Dose Admin Ondansetron HCl 4 mg 01/16/24 14:13 01/16/24 14:38 Ondansetron 4mg/2ml Vial IV 01/16/24 14:14 Not Given ONCE ONE Promethazine HCl 25 mg 01/16/24 14:37 01/16/24 14:38 Promethazine 25mg Tablet PO 01/16/24 14:38 25 mg ONCE ONE Administration ORDERS Category Date Time Status CXR --portable [XR chest portable] Stat Exams 01/16/24 14:13 Taken CBC w/Auto Diff [Complete Blood Count Auto Diff] Stat Lab 01/16/24 13:24 Completed CMP [Comprehensive Metabolic Panel] Stat Lab 01/16/24 13:24 Completed Lipase Stat Lab 01/16/24 13:24 Received Magnesium Stat Lab 01/16/24 13:24 Completed Phosphorous Stat Lab 01/16/24 13:24 Completed Trop I [Troponin I] Stat Lab 01/16/24 13:24 Completed Troponin I Q3H Lab 01/16/24 17:15 Ordered Troponin I Q3H Lab 01/16/24 20:15 [facility] 01/16/24 14:27 Completed ECG Data Tracing #1: Attestation: I reviewed this ECG and interpreted as documented below: ECG Narrative: Ventricular of 71 no acute ischemic changes noted there is a normal axis no significant conduction abnormalities MDM Narrative Medical Decision Narrative: Patient is a chronically ill-appearing 58-year-old female very well-known to myself and to our emergency department presenting today with nausea vomiting diarrhea and chest pain and anxiety. Anxiety secondary to not being on her medications that she was recently on. She has no signs or symptoms of withdrawal at the moment. Will check a single troponin as she has had symptoms ongoing unchanged since yesterday no need for serial troponins. Also will check an EKG and a chest x-ray. Will get electrolytes and basic labs regarding nausea vomiting diarrhea give IV fluids and nausea medicine and reassess. Reassessment 3:09 PM patient feeling better fluids still going and serial abdominal exams benign labs unremarkable she has chronic kidney disease no acute electro abnormalities or acute kidney injury. Troponin undetectably low not consistent with ACS etc. Assuming patient can tolerate p.o. and fluids are complete she will be discharged with a prescription of Phenergan to go home with and return precautions emphasized.
[2024-01-16 14:26] LABS: Basophils % 0.3 % (0.1-2.0); Eosinophils # 0.1 K/mm3 (0.0-0.4); Eosinophils % 1.6 % (0.1-12.0); Hematocrit 48.9 % (37.0-47.0); Hemoglobin 16.1 g/dL (12.2-16.2); Lymphocytes # 1.8 K/mm3 (0.7-4.5); Lymphocytes % 26.6 % (10-50); Mean Corpuscular HGB Conc 32.9 g/dL (31.8-35.4); Mean Corpuscular Hemoglobin 31.4 pg (27.0-31.2); Mean Corpuscular Volume 95.3 fl (81-99); Mean Platelet Volume 9.2 fl (7.4-10.4); Monocytes # 0.3 K/mm3 (0.1-1.0); Monocytes % 4.4 % (1.7-9.3); Neutrophils # 4.6 K/mm3 (1.8-7.8); Neutrophils % 67.1 % (37.0-80.0); Platelet Count 319 K/mm3 (142-424); Red Blood Count 5.13 M/mm3 (4.20-5.40); Red Cell Distribution Width 16.9 % (11.5-17.5); White Blood Count 6.9 K/mm3 (4.8-10.8)
--- NOTE | 2024-01-16 14:27 | ECG_ITS ---
APPROVED REPORT Exam: Resting ECG HR:71 bpm ECG Measurements Heart Rate 71 AXES OK 123 P 45 QRSd 84 QRS 69 QT 402 T 72 QTc 425 Conclusion SINUS RHYTHM NORMAL ECG UNCONFIRMED REPORT Electronically signed by : Evaristo Gonzalez MD 01/16/2024 19:56:17
[2024-01-16 14:30] LABS: Alanine Aminotransferase 22 U/L (12-78); Albumin Level 4.2 g/dl (3.5-5.0); Albumin/Globulin Ratio 0.9 (1.1-1.8); Alkaline Phosphatase 205 U/L (38-126); Anion Gap 16.5 mEq/L (5-15); Aspartate Amino Transferase 37 U/L (14-36); Bilirubin,Total 0.7 mg/dl (0.2-1.3); Blood Urea Nitrogen 3 mg/dl (7-17); Calcium 9.7 mg/dl (8.4-10.2); Carbon Dioxide 21 mmol/L (22.0-30.0); Chloride 108 mmol/L (98-107); Creatinine Clearance Estimated 29 mL/min (50-200); Estimated Glomerular Filt Rate 39 ml/min (>60); GFR (African American) 47 ML/MIN (>60); Globulin 4.5 g/dL (1.3-3.2); Glucose 93 mg/dl (74-100); Magnesium 1.6 mg/dl (1.6-2.3); Phosphorous 3.7 mg/dl (2.5-4.5); Potassium 3.5 mmoL/L (3.5-5.1); Sodium 142 mmol/L (136-145); Total Protein,Serum 8.7 g/dl (6.3-8.2)
[2024-01-16] MEDS: LACTATED RINGERS 1000ML 1,000 ML 999 ML IV (14:32)
[2024-01-16] MEDS: PROMETHAZINE 25MG TABLET 25 MG PO (14:38)
[2024-01-16 14:41] LABS: Troponin I < 0.01 ng/ml (0.00-0.034)
--- NOTE | 2024-01-16 15:29 | PC.NURSE ---
pt given meal tray
[2024-01-16 15:46] LABS: Lipase 88 U/L (23-300)
== END 2024-01-16 17:17 | disposition home or self-care (01) ==
PROVIDERS: Emergency Provider Student in an Organized Health Care Education/Training Program; PCP Physician Assistant
DX: R07.9 Chest pain, unspecified (principal); R11.2 Nausea with vomiting, unspecified; R19.7 Diarrhea, unspecified; F17.210 Nicotine dependence, cigarettes, uncomplicated; I11.0 Hypertensive heart disease with heart failure; I25.119 Atherosclerotic heart disease of native coronary artery with unspecified angina pectoris; J44.9 Chronic obstructive pulmonary disease, unspecified; I50.30 Unspecified diastolic (congestive) heart failure; E78.5 Hyperlipidemia, unspecified; Z95.5 Presence of coronary angioplasty implant and graft
CPT/HCPCS: 71045; 80053; 83690; 83735; 84100; 84484; 85025; 93005; 96361; 96374; 99284

== ENCOUNTER 2024-02-15 17:13 | Emergency (ER) | payer OTHER, SELFPAY ==
--- NOTE | 2024-02-15 17:18 | XR_ITS ---
PROCEDURE INFORMATION: Exam: XR Nasal Bones Exam date and time: 02/15/2024 5:17 PM Age: 58 years old Clinical indication: Injury or trauma; Fall; Blunt trauma (contusions or hematomas); Nose TECHNIQUE: Imaging protocol: XR of the nasal bones. Views: Minimum of 3 views COMPARISON: CT HEAD/BRAIN WO CON 09/19/2023 11:31 AM FINDINGS: Sinuses: Well aerated. No opacification. Bones/joints: No fracture. Soft tissues: Unremarkable. IMPRESSION: Unremarkable.
--- NOTE | 2024-02-15 17:19 | XR_ITS ---
PROCEDURE INFORMATION: Exam: XR Left Hand Exam date and time: 02/15/2024 5:21 PM Age: 58 years old Clinical indication: Injury or trauma; Fall; Blunt trauma (contusions or hematomas); Hand; Left TECHNIQUE: Imaging protocol: Radiologic exam of the left hand. Views: 3 or more views. COMPARISON: CR XR WRIST LT MIN 3V 07/07/2023 6:45 PM FINDINGS: Bones/joints: Normal. Soft tissues: Normal. IMPRESSION: No acute findings.
--- NOTE | 2024-02-15 17:27 | XR_ITS ---
PROCEDURE INFORMATION: Exam: XR Left Forearm Exam date and time: 02/15/2024 5:23 PM Age: 58 years old Clinical indication: Injury or trauma; Fall; Blunt trauma (contusions or hematomas); Arm, lower; Left TECHNIQUE: Imaging protocol: Radiologic exam of the left forearm. Views: 2 views. COMPARISON: CR XR FOREARM LT 2V 11/06/2023 1:02 PM FINDINGS: Bones/joints: Normal. Soft tissues: Normal. IMPRESSION: No acute findings.
[2024-02-15 17:40] VITALS: BP 131/70; PULSE 76; RESP 18; TEMP 36.8; O2SAT 100; BMI 16.0
--- NOTE | 2024-02-15 18:00 | EXP.UTC ---
Discharge Plan Disposition Patient Disposition: Home, Self-Care Condition: Good Prescriptions Prescriptions: No Action albuterol sulfate [Ventolin HFA] 90 mcg/actuation HFA aerosol inhaler See Rx Instructions .ROUTE .COMPLEX Qty: 18 2RF Dose Instruction: INHALE 2 PUFFS BY MOUTH EVERY 6 HOURS Rx Instructions: INHALE 2 PUFFS BY MOUTH EVERY 6 HOURS Trelegy Ellipta 100-62.5-25 mcg blister with device 1 inh INHALATION DAILY promethazine 25 mg tablet 25 mg PO TID PRN (Reason: nausea and vomiting) 5 Days Qty: 20 0RF buprenorphine-naloxone 8-2 mg tablet, sublingual 2 tab SUBLINGUAL DAILY aspirin 81 mg tablet,delayed release (DR/EC) 81 mg PO DAILY ipratropium-albuterol 0.5 mg-3 mg(2.5 mg base)/3 mL solution for nebulization 3 ml INHALATION Q4HP PRN (Reason: Shortness of air) tizanidine 4 mg tablet 4 mg PO TIDP PRN (Reason: MUSCLE SPASMS) omeprazole 40 mg capsule,delayed release(DR/EC) 40 mg PO DAILY furosemide 20 mg tablet 20 mg PO DAILY escitalopram oxalate 20 mg tablet 20 mg PO DAILY nystatin 100,000 unit/mL Suspension 500,000 unit PO QID 8 Days Qty: 160 0RF sennosides-docusate sodium [Stool Softener-Stimulant Laxat] 8.6-50 mg Tablet 1 tab PO DAILY 30 Days Qty: 30 0RF magnesium oxide 400 mg (241.3 mg magnesium) Tablet 400 mg PO DAILY 30 Days Qty: 30 0RF nicotine 21 mg/24 hr Patch 24 Hour 21 mg transdermal DAILY 28 Days Qty: 28 0RF Referrals Follow up/Referrals: Provider,Referral, MD [Primary Care Provider] - See instructions Clinical Impressions Clinical Impression: Contusion Instructions Patient Instructions: DI for Contusion Discharge ED Provider: Sasha ([facility])[place] [facility] [place] General Stated complaint: AO 02/14/24 2100 fell injury nose,left hand Mode of Arrival: Ambulatory Source of Information: Patient Limitations: No Limitations Time Seen by Provider: 02/15/24 18:00 Description of Symptoms (Recalled from Triage Doc. by RN): PATIENT STATES SHE WAS CLIMBING ON A BUNK BED TO TURN OFF A CEILING FAN AND FELL LAST NIGHT, INJURING HER NOSE AND LEFT ARM HEENT Symptoms (Recalled from RN notes): No Resp Symptoms (Recalled from RN notes): No Skin Symptoms (Recalled from RN notes): No MS Symptoms (Recalled from RN notes): Yes Functional Status (Recalled from RN notes): WNL History of Present Illness Provider Complaint: 58 yr old female presents for left arm and facial pain. pt states she was climbing on her bunk bed to turn off the fan when she fell hitting her arm and nose last pm. no loc Related Data Home Medications Medication Instructions Recorded Confirmed buprenorphine 8 mg-naloxone 2 mg 2 tab sublingual DAILY Opioid 03/21/23 12/25/23 sublingual tablet dependence fluticasone fur. 100 mcg-umeclid 1 inh inhalation DAILY Copd 09/19/23 12/25/23 62.5 mcg-vilant 25 mcg inhalat.powder (Trelegy Ellipta) aspirin 81 mg tablet,delayed 81 mg PO DAILY Blood Thinner 12/14/23 12/25/23 release escitalopram oxalate 20 mg tablet 20 mg PO DAILY Depression 12/14/23 12/25/23 furosemide 20 mg tablet 20 mg PO DAILY Fluid 12/14/23 12/25/23 ipratropium 0.5 mg-albuterol 3 mg 3 ml inhalation Q4HP PRN Shortness 12/14/23 12/25/23 (2.5 mg base)/3 mL nebulization of air soln omeprazole 40 mg capsule,delayed 40 mg PO DAILY GERD 12/14/23 12/25/23 release tizanidine 4 mg tablet 4 mg PO TIDP PRN MUSCLE SPASMS 12/14/23 12/25/23 Previous Rx's Medication Instructions Recorded magnesium oxide 400 mg (241.3 mg 400 mg PO DAILY 30 days #30 tabs 12/16/23 magnesium) tablet nicotine 21 mg/24 hr daily 21 mg transdermal DAILY 28 days 12/16/23 transdermal patch #28 ea nystatin 100,000 unit/mL oral 500,000 unit (5 mL) PO QID 8 days 12/16/23 suspension #160 mL sennosides 8.6 mg-docusate sodium 1 tab PO DAILY 30 days #30 tabs 12/16/23 50 mg tablet (Stool Softener-Stimulant Laxative) albuterol sulfate 90 mcg/actuation See Rx Instructions .Route 12/25/23 aerosol inhaler (Ventolin HFA) .COMPLEX #18 grams promethazine 25 mg tablet 25 mg PO TID PRN nausea and 01/16/24 vomiting 5 days #20 tabs Allergies Allergy/AdvReac Type Severity Reaction Status Date / Time atorvastatin AdvReac Intermediate myalgia Verified 12/25/23 10:56 propoxyphene [PROPOXYPHENE] AdvReac Unknown Nausea Verified 12/25/23 10:56 tramadol [TRAMADOL] AdvReac Unknown Nausea Verified 12/25/23 10:56 Worker's Comp Is this a Worker's Comp case?: No [facility] Disclaimer: The information contained in this section may have been updated after the patient was seen, as this information can be updated by other users. 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) Acute respiratory failure with hypoxia Pneumonia Chronic pain Anxiety disorder Exacerbation of bronchiectasis due to infection Bronchiectasis without acute exacerbation Diastolic congestive heart failure Coronary artery disease Severe sepsis with acute organ dysfunction Congestive heart failure Elevated erythrocyte sedimentation rate LVH (left ventricular hypertrophy) COVID-19 Carotid artery disease without cerebral infarction Anemia Severe aortic regurgitation Fatigue Aortic regurgitation Anxiety TOMY (renal artery stenosis) CAD (coronary artery disease) Hyperlipidemia Unstable angina Renal insufficiency Abnormal ECG History of intravenous drug use in remission Osteoporosis without current pathological fracture Cervical spondylosis with radiculopathy Depression Apnea Osteoporosis Back Pain Hoarseness Osteopenia COPD (chronic obstructive pulmonary disease) Cervical radiculopathy Syncope and collapse Lipoma of abdominal wall Chronic headaches Tobacco abuse Insomnia HCV (hepatitis C virus) Polysubstance abuse Skin abscess Surgical History , 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) History of arthroscopic knee surgery History of carpal tunnel release History of breast biopsy History of ureter stent History of hysterectomy History of hernia repair History of section History of coronary artery stent placement History of colonoscopy Hx of cholecystectomy History of cardiac cath History of cancer surgery Family History , 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) Family history of anemia Family history of hypertension Family history of COPD (chronic obstructive pulmonary disease) Family history of hyperlipidemia Social History , 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) Smoking Status: Current every day smoker tobacco type: cigarettes packs per day: 1 second hand exposure: No alcohol intake: never substance use type: painkillers current occupational status: disabled Travel in the last 8 weeks: None household members: friend(s) housing: house marital status: current occupational exposures/hazards: No caffeine: Yes ROS Obtained: Yes All systems reviewed & no additional complaints except as documented Constitutional Constitutional: Reports system reviewed and no additional complaints, except as documented Eyes Eyes: Reports system reviewed and no additional complaints, except as documented ENT Ears, Nose, Mouth, and Throat: Reports system reviewed and no additional complaints, except as documented Cardiovascular Cardiovascular: Reports system reviewed and no additional complaints, except as documented Respiratory Respiratory: Reports system reviewed and no additional complaints, except as documented Gastrointestinal Gastrointestingal: Reports system reviewed and no additional complaints, except as documented Musculoskeletal Musculoskeletal: Reports system reviewed and no additional complaints, except as documented, Reports as per HPI, Reports arthralgias, Reports joint swelling and Reports limited range of motion Integumentary/Breasts Skin/Breast: Reports system reviewed and no additional complaints, except as documented and Reports other Neurologic Neurologic: Reports system reviewed and no additional complaints, except as documented Endocrine Endocrine: Reports system reviewed and no additional complaints, except as documented Hematologic/Lymphatic Henatologic/Lymphatic: Reports system reviewed and no additional complaints, except as documented Allergic/Immunologic Allergic/Immunologic: Reports system reviewed and no additional complaints, except as documented Physical Exam General General appearance: alert Head Head exam: atraumatic Eye Eye exam: Present normal appearance and PERRL ENT ENT exam: Present normal exam Expanded ENT Exam Nose/Mouth Image: 1. abrasion Neck Neck exam: Present normal inspection and full ROM Respiratory Respiratory exam: Present normal lung sounds bilaterally Cardiovascular Cardiovascular exam: Present regular rate and normal rhythm Expanded Upper Extremity Exam Left: Arm exam: Present tenderness, swelling and ecchymosis Forearm/Wrist exam: Present tenderness, swelling and ecchymosis Hand exam: Present tenderness and ecchymosis L/R Arms Top View: 1. bruising 2. swelling Neuromotor exam: Normal wrist extension Vascular exam: Normal capillary refill, radial pulse and ulnar pulse Neurological Exam Neurological exam: Present alert and oriented X3 Skin Skin exam: Present warm and intact Medical Decision Making Medical Records Medical records reviewed: Yes I reviewed the patient's medical records. Berry Inquiry Pt receiving controlled substance: No Berry was queried for this patient: No Vital Signs: 02/15/24 17:40 Temperature 98.2 F Temperature Source Oral Pulse Rate [Left Brachial] 76 Respiratory Rate 18 Blood Pressure [Left Arm] 131/70 Blood Pressure Mean [Left Arm] 90 Blood Pressure Source [Left Arm] Automatic Cuff Blood Pressure Position [Left Arm] Sitting 02 Sat by Pulse Oximetry 100 Oxygen Delivery Method Room Air Orders (Tests/Meds): ORDERS Category Date Time Status XR forearm LT 2V Stat Exams 02/15/24 17:27 Completed XR hand LT min 3V Stat Exams 02/15/24 17:19 Completed XR nasal bones min 3V Stat Exams 02/15/24 17:18 Completed
[2024-02-15 18:11] VITALS: BP 131/70; PULSE 76; RESP 18; TEMP 36.8; O2SAT 100
== END 2024-02-15 18:18 | disposition home or self-care (01) ==
PROVIDERS: Emergency Provider Nurse Practitioner Family
DX: S00.31XA Abrasion of nose, initial encounter (principal); S60.222A Contusion of left hand, initial encounter; I50.30 Unspecified diastolic (congestive) heart failure; I25.110 Atherosclerotic heart disease of native coronary artery with unstable angina pectoris; I65.29 Occlusion and stenosis of unspecified carotid artery; I35.1 Nonrheumatic aortic (valve) insufficiency; E78.5 Hyperlipidemia, unspecified; J44.9 Chronic obstructive pulmonary disease, unspecified; F17.210 Nicotine dependence, cigarettes, uncomplicated; W06.XXXA Fall from bed, initial encounter
CPT/HCPCS: 70160; 73090; 73130; 99204; 99212; G0463

== ENCOUNTER 2024-02-22 18:58 | Emergency (ER) | payer OTHER, SELFPAY ==
[2024-02-22] VITALS (9 sets, daily range): BP systolic 153–179; BP diastolic 79–92; PULSE 79–89; RESP 14–19; TEMP 36.7; O2SAT 96–100; BMI 15.5
--- NOTE | 2024-02-22 18:59 | ECG_ITS ---
APPROVED REPORT Exam: Resting ECG HR:83 bpm ECG Measurements Heart Rate 83 AXES NV 138 P 75 QRSd 89 QRS 77 QT 301 T 64 QTc 341 Critical Notification Critical Value: No Conclusion SINUS RHYTHM POSSIBLE LEFT ATRIAL ENLARGEMENT [-0.1mV P-WAVE IN V1/V2] NONSPECIFIC T-WAVE ABNORMALITY BORDERLINE ECG Electronically signed by : JUAN JOSE SAMAYOA, 02/23/2024 01:49:14
--- NOTE | 2024-02-22 19:04 | XR_ITS ---
PROCEDURE INFORMATION: Exam: XR Chest Exam date and time: 02/22/2024 7:16 PM Age: 58 years old Clinical indication: Pain; Angina pectoris; Additional info: Midline cp since yesterday TECHNIQUE: Imaging protocol: Radiologic exam of the chest. Views: 1 view. Total images: 1 COMPARISON: CR XR CHEST PORTABLE 01/16/2024 2:13 PM FINDINGS: Tubes, catheters and devices: EKG leads are present. EKG leads are present. Lungs: Unremarkable. No consolidation. No pulmonary vascular congestion or edema. Pleural spaces: Unremarkable. No pleural effusion. No pneumothorax. Heart/Mediastinum: Unremarkable. No cardiomegaly. No mediastinal widening or hilar enlargement. Bones/joints: Minor thoracic levocurvature. Soft tissues: Breast attenuation artifact. IMPRESSION: No radiographically acute cardiopulmonary process.
--- NOTE | 2024-02-22 19:22 | ED_ITS ---
Discharge Plan Disposition Patient Disposition: Home, Self-Care Chief Complaint: Chest Pain Prescriptions Prescriptions: No Action albuterol sulfate [Ventolin HFA] 90 mcg/actuation HFA aerosol inhaler See Rx Instructions .ROUTE .COMPLEX Qty: 18 2RF Dose Instruction: INHALE 2 PUFFS BY MOUTH EVERY 6 HOURS Rx Instructions: INHALE 2 PUFFS BY MOUTH EVERY 6 HOURS Trelegy Ellipta 100-62.5-25 mcg blister with device 1 inh INHALATION DAILY promethazine 25 mg tablet 25 mg PO TID PRN (Reason: nausea and vomiting) 5 Days Qty: 20 0RF buprenorphine-naloxone 8-2 mg tablet, sublingual 2 tab SUBLINGUAL DAILY aspirin 81 mg tablet,delayed release (DR/EC) 81 mg PO DAILY ipratropium-albuterol 0.5 mg-3 mg(2.5 mg base)/3 mL solution for nebulization 3 ml INHALATION Q4HP PRN (Reason: Shortness of air) tizanidine 4 mg tablet 4 mg PO TIDP PRN (Reason: MUSCLE SPASMS) omeprazole 40 mg capsule,delayed release(DR/EC) 40 mg PO DAILY furosemide 20 mg tablet 20 mg PO DAILY escitalopram oxalate 20 mg tablet 20 mg PO DAILY nystatin 100,000 unit/mL Suspension 500,000 unit PO QID 8 Days Qty: 160 0RF sennosides-docusate sodium [Stool Softener-Stimulant Laxat] 8.6-50 mg Tablet 1 tab PO DAILY 30 Days Qty: 30 0RF magnesium oxide 400 mg (241.3 mg magnesium) Tablet 400 mg PO DAILY 30 Days Qty: 30 0RF nicotine 21 mg/24 hr Patch 24 Hour 21 mg transdermal DAILY 28 Days Qty: 28 0RF Referrals Follow up/Referrals: Kayy Warren PA [Primary Care Provider] - See instructions Toni Silverio MD [Staff Physician] - See instructions Activity Restrictions/Add. Instructions Additional Instructions/Restrictions: At this time it was felt you are safe to be discharged home. If new or worsening symptoms please do not hesitate to return the emergency department. If symptoms persist please follow-up with cardiology as you are able. Please follow-up with your family doctor to recheck your potassium this coming week. Clinical Impressions Clinical Impression: Hypokalemia, Chest pain Discharge ED Provider: Robb Muro [facility] General Chief Complaint: Chest Pain Stated Complaint: CP Time Seen by Provider: 02/22/24 19:03 Mode of Arrival: EMS Source of Information: Patient and EMS Limitations: No Limitations Description of Symptoms (Recalled from ER Triage Doc. by RN): Patient to ED by [facility] with complaints of chest pain that started yesterday. Describes it as a throbbing pain. Denies SOA, but reports that she is cold. History of Present Illness HPI narrative: Patient is a 58-year-old female with multiple comorbidities including hypertension, hyperlipidemia, CHF, angina, COPD who presents emergency department for evaluation of multiple complaints. Her chief complaint is chest pain onset was acute, over the last 48 hours, persistent however sometimes waxing and intensity radiating into her left shoulder. She did fall approximately 2 weeks ago and is unsure whether her chest pain is due to her shoulder pain or her heart. She has associated vomiting over the last 48 hours and cough causing her to present here for continued evaluation. No other acute complaints at this time Related Data Home Medications Medication Instructions Recorded Confirmed buprenorphine 8 mg-naloxone 2 mg 2 tab sublingual DAILY Opioid 03/21/23 12/25/23 sublingual tablet dependence fluticasone fur. 100 mcg-umeclid 1 inh inhalation DAILY Copd 09/19/23 12/25/23 62.5 mcg-vilant 25 mcg inhalat.powder (Trelegy Ellipta) aspirin 81 mg tablet,delayed 81 mg PO DAILY Blood Thinner 12/14/23 12/25/23 release escitalopram oxalate 20 mg tablet 20 mg PO DAILY Depression 12/14/23 12/25/23 furosemide 20 mg tablet 20 mg PO DAILY Fluid 12/14/23 12/25/23 ipratropium 0.5 mg-albuterol 3 mg 3 ml inhalation Q4HP PRN Shortness 12/14/23 12/25/23 (2.5 mg base)/3 mL nebulization of air soln omeprazole 40 mg capsule,delayed 40 mg PO DAILY GERD 12/14/23 12/25/23 release tizanidine 4 mg tablet 4 mg PO TIDP PRN MUSCLE SPASMS 12/14/23 12/25/23 Previous Rx's Medication Instructions Recorded magnesium oxide 400 mg (241.3 mg 400 mg PO DAILY 30 days #30 tabs 12/16/23 magnesium) tablet nicotine 21 mg/24 hr daily 21 mg transdermal DAILY 28 days 12/16/23 transdermal patch #28 ea nystatin 100,000 unit/mL oral 500,000 unit (5 mL) PO QID 8 days 12/16/23 suspension #160 mL sennosides 8.6 mg-docusate sodium 1 tab PO DAILY 30 days #30 tabs 12/16/23 50 mg tablet (Stool Softener-Stimulant Laxative) albuterol sulfate 90 mcg/actuation See Rx Instructions .Route 12/25/23 aerosol inhaler (Ventolin HFA) .COMPLEX #18 grams promethazine 25 mg tablet 25 mg PO TID PRN nausea and 01/16/24 vomiting 5 days #20 tabs Allergies Allergy/AdvReac Type Severity Reaction Status Date / Time atorvastatin AdvReac Intermediate myalgia Verified 12/25/23 10:56 propoxyphene [PROPOXYPHENE] AdvReac Unknown Nausea Verified 12/25/23 10:56 tramadol [TRAMADOL] AdvReac Unknown Nausea Verified 12/25/23 10:56 PFSH PFSH Disclaimer: The information contained in this section may have been updated after the patient was seen, as this information can be updated by other users. 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 , [employer]) Acute respiratory failure with hypoxia Pneumonia Chronic pain Anxiety disorder Exacerbation of bronchiectasis due to infection Bronchiectasis without acute exacerbation Diastolic congestive heart failure Coronary artery disease Severe sepsis with acute organ dysfunction Congestive heart failure Elevated erythrocyte sedimentation rate LVH (left ventricular hypertrophy) COVID-19 Carotid artery disease without cerebral infarction Anemia Severe aortic regurgitation Fatigue Aortic regurgitation Anxiety TOMY (renal artery stenosis) CAD (coronary artery disease) Hyperlipidemia Unstable angina Renal insufficiency Abnormal ECG History of intravenous drug use in remission Osteoporosis without current pathological fracture Cervical spondylosis with radiculopathy Depression Apnea Osteoporosis Back Pain Hoarseness Osteopenia COPD (chronic obstructive pulmonary disease) Cervical radiculopathy Syncope and collapse Lipoma of abdominal wall Chronic headaches Tobacco abuse Insomnia HCV (hepatitis C virus) Polysubstance abuse Skin abscess Surgical History , [employer]) History of arthroscopic knee surgery History of carpal tunnel release History of breast biopsy History of ureter stent History of hysterectomy History of hernia repair History of section History of coronary artery stent placement History of colonoscopy Hx of cholecystectomy History of cardiac cath History of cancer surgery Family History , [employer]) Family history of anemia Family history of hypertension Family history of COPD (chronic obstructive pulmonary disease) Family history of hyperlipidemia Social History , [employer]) Smoking Status: Current every day smoker tobacco type: cigarettes packs per day: 1 second hand exposure: No alcohol intake: never substance use type: painkillers current occupational status: disabled Travel in the last 8 weeks: None household members: friend(s) housing: house marital status: current occupational exposures/hazards: No caffeine: Yes ROS Obtained: Yes Systems reviewed as appropriate & no additional complaints except as documented Physical Exam General General appearance: alert and in no apparent distress Head Head exam: atraumatic and normocephalic Eye Eye exam: Present PERRL ENT ENT exam: Present mucous membranes moist Neck Neck exam: Present normal inspection Chest Chest inspection: Present normal inspection and symmetric chest wall rise Respiratory Respiratory exam: Present normal lung sounds bilaterally; Absent respiratory distress Cardiovascular Cardiovascular exam: Present regular rate and normal rhythm Abdominal Exam Abdominal exam: Present soft; Absent tenderness Extremities Exam Extremities exam: Present normal inspection Neurological Exam Neurological exam: Present alert Psychiatric Psychiatric exam: Present normal affect Skin Skin exam: Present warm and dry HEART Score HEART Score HEART Score assessment performed?: Yes History (anamnesis): Moderately suspicious ECG: Normal Age: 45-65 years Risk factors: 1-2 risk factors Troponin: </= normal limit HEART Score: 3 Critical Care Critical Care Time Critical Care Time: No Medical Decision Making Berry Inquiry Pt receiving controlled substance: No Vital Signs Vital Signs: 02/22/24 18:58 02/22/24 19:08 02/22/24 19:30 Temperature 98.1 F Temperature Source Oral Pulse Rate 87 89 Pulse Rate [Right] 79 Respiratory Rate 16 19 Blood Pressure 166/89 H 177/92 H Blood Pressure [Right Arm] 166/89 H Blood Pressure Mean 133 140 Blood Pressure Mean [Right Arm] 114 Blood Pressure Source [Right Arm] Automatic Cuff Blood Pressure Position [Right Arm] Sitting 02 Sat by Pulse Oximetry 100 96 Oxygen Delivery Method Room Air 02/22/24 20:00 02/22/24 20:30 02/22/24 21:30 Temperature Temperature Source Pulse Rate 85 87 Pulse Rate [Right] Respiratory Rate 14 14 16 Blood Pressure 153/88 H 163/90 H 172/90 H Blood Pressure [Right Arm] Blood Pressure Mean 123 120 117 Blood Pressure Mean [Right Arm] Blood Pressure Source [Right Arm] Blood Pressure Position [Right Arm] 02 Sat by Pulse Oximetry 97 98 96 Oxygen Delivery Method Room Air Room Air Room Air 02/22/24 22:00 02/22/24 22:30 Temperature Temperature Source Pulse Rate 85 Pulse Rate [Right] Respiratory Rate 18 14 Blood Pressure 169/87 H 176/79 H Blood Pressure [Right Arm] Blood Pressure Mean 123 114 Blood Pressure Mean [Right Arm] Blood Pressure Source [Right Arm] Blood Pressure Position [Right Arm] 02 Sat by Pulse Oximetry 97 98 Oxygen Delivery Method Room Air Room Air Lab Data Labs: Lab Results 02/22/24 19:05: WBC 7.0, RBC 4.52, Hgb 14.2, Hct 44.2, MCV 97.7, MCH 31.3 H, MCHC 32.0, RDW 17.1, Plt Count 456 H, MPV 8.8, Neut % (Auto) 52.8, Lymph % (Auto) 39.5, [place] % (Auto) 4.1, Eos % (Auto) 1.9, Baso % (Auto) 1.6, Neut # (Auto) 3.7, Lymph # (Auto) 2.8, [place] # (Auto) 0.3, Eos # (Auto) 0.1, Baso # (Auto) 0.1, Sodium 137, Potassium 3.1 L, Chloride 109 H, Carbon Dioxide 22, Anion Gap 9.1, BUN 8, Creatinine 1.30 H, Estimated Creat Clear 29, Estimated GFR 42 L, Est GFR ( Amer) 51 L, Glucose 105 H, Calcium 9.0, Total Bilirubin 0.5, AST 34, ALT 16, Alkaline Phosphatase 160 H, Troponin I < 0.01, Total Protein 7.1, Albumin 3.5, Globulin 3.6 H, Albumin/Globulin Ratio 1.0 L, Lipase 95, SARS-CoV-2 (PCR) Not detected, Influenza A Untype (PCR) Not detected, Influenza Type B (PCR) Not detected 02/22/24 22:30: Troponin I < 0.01 02/22/24 19:05 02/22/24 19:05 Response Orders (Tests/Meds): ED MEDICATIONS Generic Name Dose Route Start Last Admin Trade Name Freq PRN Reason Stop Dose Admin Nitroglycerin 0.4 mg 02/22/24 19:04 02/22/24 19:30 Nitroglycerin 0.4mg Sl Tablet SL 03/23/24 19:03 0.4 mg Q5MINP PRN Administration Chest Pain Discontinued Medications Generic Name Dose Route Start Last Admin Trade Name Freq PRN Reason Stop Dose Admin Lactated Ringer's 1,000 mls @ 999 mls/hr 02/22/24 19:21 02/22/24 19:31 Lactated Ringer's 1000 Ml Bag IV 02/22/24 20:21 999 mls/hr .Q1H1M ONE Administration Ondansetron HCl 4 mg 02/22/24 19:30 02/22/24 19:31 Ondansetron 4mg/2ml Vial IV 02/22/24 19:31 4 mg ONCE ONE Administration Potassium Chloride 40 meq 02/22/24 21:13 02/22/24 22:10 Potassium Chloride 20meq Tab PO 02/22/24 21:14 40 meq ONCE ONE Administration Promethazine HCl 25 mg 02/22/24 19:21 02/22/24 19:30 Promethazine Hcl 25mg/Ml 1ml Vial IV 02/22/24 19:22 Not Given ONCE ONE Sodium Chloride 25 ml 02/22/24 19:21 02/22/24 23:07 Sodium Chloride 0.9% 25ml Bag IV 02/22/24 19:22 Not Given ONCE ONE ORDERS Category Date Time Status CXR --portable [XR chest portable] Stat Exams 02/22/24 19:04 Completed CBC w/Auto Diff [Complete Blood Count Auto Diff] Stat Lab 02/22/24 19:05 Completed CMP [Comprehensive Metabolic Panel] Stat Lab 02/22/24 19:05 Completed Lipase Stat Lab 02/22/24 19:05 Completed Rapid PCR Covid and Flu A/B Stat Lab 02/22/24 19:05 Completed Trop I [Troponin I] Stat Lab 02/22/24 19:05 Completed Troponin I Q3H Lab 02/22/24 22:30 Completed Troponin I Q3H Lab 02/23/24 01:15 Ordered ECG Data Tracing #1: ECG Narrative: Independently interpreted by me, rate is 83, rhythm is regular, axis is normal, no ST elevation in anatomical contiguous leads, QTc 341. MDM Narrative Medical Decision Narrative: In summary patient is a 58-year-old female past medical history described above who presents emergency department for evaluation of cough, vomiting, chest pain. Patient is hemodynamically stable nontoxic-appearing upon arrival, afebrile. Differential diagnosis includes ACS, viral syndrome, among others. Patient is clear to auscultation and has no significant respiratory distress not on oxygen therefore pneumonia is less likely. Workup will be conducted with hematologic labs, viral swab, chest x-ray. Initial interventions include crystalloid bolus, Zofran, nitroglycerin. Workup reviewed by me, hematologic labs are remarkable for mild hypokalemia which will be repleted orally. Stable CKD. Serial troponins are flat. Viral swab negative. Upon repeat evaluation patient was resting comfortably in bed and is appropriate for outpatient management at this time.
[2024-02-22] MEDS: NITROGLYCERIN 0.4MG SL TABLET 0.400000000000000022 MG SL (19:30)
[2024-02-22] MEDS: LACTATED RINGERS 1000ML 1,000 ML 999 ML IV (19:31)
[2024-02-22] MEDS: ONDANSETRON 4MG/2ML VIAL 4 MG IV (19:31)
[2024-02-22 19:34] LABS: Basophils # 0.1 K/mm3 (0-0.2); Basophils % 1.6 % (0.1-2.0); Eosinophils # 0.1 K/mm3 (0.0-0.4); Eosinophils % 1.9 % (0.1-12.0); Hematocrit 44.2 % (37.0-47.0); Hemoglobin 14.2 g/dL (12.2-16.2); Lymphocytes # 2.8 K/mm3 (0.7-4.5); Lymphocytes % 39.5 % (10-50); Mean Corpuscular Hemoglobin 31.3 pg (27.0-31.2); Mean Corpuscular Volume 97.7 fl (81-99); Mean Platelet Volume 8.8 fl (7.4-10.4); Monocytes # 0.3 K/mm3 (0.1-1.0); Monocytes % 4.1 % (1.7-9.3); Neutrophils # 3.7 K/mm3 (1.8-7.8); Neutrophils % 52.8 % (37.0-80.0); Platelet Count 456 K/mm3 (142-424); Red Blood Count 4.52 M/mm3 (4.20-5.40); Red Cell Distribution Width 17.1 % (11.5-17.5)
[2024-02-22 19:35] LABS: Chloride 109 mmol/L (98-107)
[2024-02-22 19:36] LABS: Potassium 3.1 mmoL/L (3.5-5.1); Sodium 137 mmol/L (136-145)
[2024-02-22 19:38] LABS: Alanine Aminotransferase 16 U/L (12-78); Aspartate Amino Transferase 34 U/L (14-36); Blood Urea Nitrogen 8 mg/dl (7-17); Coronavirus 19, PCR Not Detected (NotDetected); Creatinine Clearance Estimated 29 mL/min (50-200); Estimated Glomerular Filt Rate 42 ml/min (>60); GFR (African American) 51 ML/MIN (>60); Influenza A, PCR Not Detected (NotDetected); Influenza B, PCR Not Detected (NotDetected); Lipase 95 U/L (23-300)
[2024-02-22 19:39] LABS: Albumin Level 3.5 g/dl (3.5-5.0); Alkaline Phosphatase 160 U/L (38-126); Anion Gap 9.1 mEq/L (5-15); Bilirubin,Total 0.5 mg/dl (0.2-1.3); Carbon Dioxide 22 mmol/L (22.0-30.0); Globulin 3.6 g/dL (1.3-3.2); Glucose 105 mg/dl (74-100); Total Protein,Serum 7.1 g/dl (6.3-8.2)
[2024-02-22 19:54] LABS: Troponin I < 0.01 ng/ml (0.00-0.034)
--- NOTE | 2024-02-22 21:03 | PC.NURSE ---
pt given sandwich,chips and drink
[2024-02-22] MEDS: POTASSIUM CHLORIDE 20MEQ TAB 40 MEQ PO (22:10)
--- NOTE | 2024-02-22 22:48 | PC.NURSE ---
patient assisted to bathroom and back to bed
[2024-02-22 23:03] LABS: Troponin I < 0.01 ng/ml (0.00-0.034)
[2024-02-23 00:12] VITALS: BP 179/92; PULSE 86; RESP 16; TEMP 37; O2SAT 98
== END 2024-02-23 00:14 | disposition home or self-care (01) ==
PROVIDERS: Emergency Provider Emergency Medicine; PCP Physician Assistant
DX: R07.89 Other chest pain; E87.6 Hypokalemia; F17.210 Nicotine dependence, cigarettes, uncomplicated; J44.9 Chronic obstructive pulmonary disease, unspecified; I11.0 Hypertensive heart disease with heart failure; I50.9 Heart failure, unspecified; I25.119 Atherosclerotic heart disease of native coronary artery with unspecified angina pectoris; E78.5 Hyperlipidemia, unspecified; N18.9 Chronic kidney disease, unspecified
CPT/HCPCS: 71045; 80053; 83690; 84484; 85025; 87636; 93005; 96361; 96374; 96375; 99285; J2405

== ENCOUNTER 2024-02-25 20:47 | Outpatient (CLI) | payer OTHER, SELFPAY ==
[2024-02-25 19:06] LABS: Chloride 110 mmol/L (98-107); Potassium 3.6 mmoL/L (3.5-5.1); Sodium 137 mmol/L (136-145)
[2024-02-25 19:09] LABS: Alanine Aminotransferase 9 U/L (12-78); Albumin Level 3.2 g/dl (3.5-5.0); Alkaline Phosphatase 204 U/L (38-126); Anion Gap 11.6 mEq/L (5-15); Aspartate Amino Transferase 27 U/L (14-36); Bilirubin,Total 0.4 mg/dl (0.2-1.3); Blood Urea Nitrogen 9 mg/dl (7-17); Carbon Dioxide 19 mmol/L (22.0-30.0); Estimated Glomerular Filt Rate 39 ml/min (>60); GFR (African American) 47 ML/MIN (>60); Globulin 3.2 g/dL (1.3-3.2); Total Protein,Serum 6.4 g/dl (6.3-8.2)
[2024-02-25 19:10] LABS: Calcium 8.9 mg/dl (8.4-10.2); Glucose 116 mg/dl (74-100)
== END 2024-02-25 23:59 ==
LOC: LAB.DROPOF 20:47
PROVIDERS: PCP Physician Assistant; Visit Provider Physician Assistant
DX: E87.6 Hypokalemia (principal)
CPT/HCPCS: 80053

== ENCOUNTER 2024-03-22 10:31 | Emergency (ER) | payer OTHER, SELFPAY ==
[2024-03-22] MEDS: ETOMIDATE 40MG/20ML VIAL 15 MG IV (10:28)
[2024-03-22 10:30] VITALS: RESP 33; O2SAT 93
[2024-03-22 10:31] VITALS: BP 192/85; PULSE 75; RESP 18; O2SAT 95; BMI 16.6
--- NOTE | 2024-03-22 10:32 | PC.NURSE ---
TREVON AT [facility] ADVISED HE WOULD CHECK WITH [facility] AND CALL BACK
--- NOTE | 2024-03-22 10:33 | PC.NURSE ---
DR NESS SPEAKING WITH [facility]
--- NOTE | 2024-03-22 10:33 | PC.NURSE ---
Nuria RDZ CALLING [facility]
[2024-03-22 10:34] VITALS: BP 203/96; PULSE 69; O2SAT 95
[2024-03-22 10:38] VITALS: BMI 15.5
[2024-03-22] MEDS: propofoL 100 ML 2.31000000000000005 MG IV (10:40)
--- NOTE | 2024-03-22 10:41 | PC.NURSE ---
RAD AT [facility]
[2024-03-22 10:44] VITALS: BP 182/120; PULSE 66; O2SAT 96
--- NOTE | 2024-03-22 10:44 | XR_ITS ---
PROCEDURE INFORMATION: Exam: XR Chest Exam date and time: 03/22/2024 10:35 AM Age: 58 years old Clinical indication: Injury or trauma; Other: Unknown trauma; Blunt trauma (contusions or hematomas) TECHNIQUE: Imaging protocol: Radiologic exam of the chest. Views: 1 view. COMPARISON: CR XR CHEST PORTABLE 02/22/2024 7:16 PM FINDINGS: Tubes, catheters and devices: Endotracheal tube 5.9 cm above the fatoumata. Lungs: Emphysematous changes. No focal consolidation. Pleural spaces: No pneumothorax. Heart/Mediastinum: Unremarkable. No cardiomegaly. Bones/joints: Multiple right rib fractures, as detailed on CTA chest same day. IMPRESSION: 1. Endotracheal tube 5.9 cm above the fatoumata. 2. Multiple right rib fractures, as detailed on CTA chest same day. 3. No pneumothorax.
--- NOTE | 2024-03-22 10:44 | PC.NURSE ---
[facility]
--- NOTE | 2024-03-22 10:45 | CT_ITS ---
PROCEDURE INFORMATION: Exam: CT Cervical Spine Without Contrast Exam date and time: 03/22/2024 11:10 AM Age: 58 years old Clinical indication: Injury or trauma; Other: Unknown trauma; Unconscious; Additional info: Trauma, critical injury suspected TECHNIQUE: Imaging protocol: Computed tomography of the cervical spine without contrast. Radiation optimization: All CT scans at this facility use at least one of these dose optimization techniques: automated exposure control; mA and/or kV adjustment per patient size (includes targeted exams where dose is matched to clinical indication); or iterative reconstruction. COMPARISON: CT CERVICAL SPINE WO CON 07/23/2023 12:53 PM FINDINGS: Tubes, catheters and devices: Endotracheal tube. Bones/joints: No acute fracture or subluxation. Mild degenerative changes of the spine. Lungs: Lung apices are normal. Vasculature: Atherosclerosis. Soft tissues: Unremarkable. IMPRESSION: No acute fracture or subluxation.
--- NOTE | 2024-03-22 10:45 | CT_ITS ---
PROCEDURE INFORMATION: Exam: CTA Chest With Contrast Exam date and time: 03/22/2024 11:20 AM Age: 58 years old Clinical indication: Injury or trauma; Other: Unknown trauma; Blunt trauma (contusions or hematomas); Additional info: Trauma, critical injury suspected. Best images possible due to iv issues TECHNIQUE: Imaging protocol: Computed tomographic angiography of the chest with contrast. Exam focused on the arteries. 3D rendering (Not supervised by radiologist): MIP and/or 3D reconstructed images were created by the technologist. Radiation optimization: All CT scans at this facility use at least one of these dose optimization techniques: automated exposure control; mA and/or kV adjustment per patient size (includes targeted exams where dose is matched to clinical indication); or iterative reconstruction. Contrast material: ISOVUE; Contrast volume: 80 ml; Contrast route: INTRAVENOUS (IV); COMPARISON: CT ANGIO CHEST PE PROTOCOL 11/11/2023 12:39 AM FINDINGS: Tubes, catheters and devices: Endotracheal tube in satisfactory position. Pulmonary arteries: Normal. No pulmonary emboli. Aorta: Unremarkable. No aortic aneurysm. No aortic dissection. Lungs: No evidence of pulmonary contusion. Stable nodular reticular interstitial thickening diffusely. Minimal atelectasis in the right middle lobe. No consolidation. No masses. Pleural spaces: Unremarkable. No pneumothorax. No pleural effusion. Heart: Unremarkable. No cardiomegaly. No pericardial effusion. Lymph nodes: Unremarkable. No enlarged lymph nodes. Bones/joints: Rudimentary 1st ribs. Minimally displaced fractures within right ribs 8 through 10 laterally and comminuted and displaced fractures within posterior ribs 11 and 12. Both 11 and 12 are segmental fractures, with fractures posteriorly and posterolaterally. Soft tissues: Unremarkable. IMPRESSION: Multiple right rib fractures as detailed above.
--- NOTE | 2024-03-22 10:45 | CT_ITS ---
PROCEDURE INFORMATION: Exam: CT Head Without Contrast Exam date and time: 03/22/2024 11:08 AM Age: 58 years old Clinical indication: Injury or trauma; Other: Unknown trauma; Unconscious; Additional info: Trauma, critical injury suspected TECHNIQUE: Imaging protocol: Computed tomography of the head without contrast. Radiation optimization: All CT scans at this facility use at least one of these dose optimization techniques: automated exposure control; mA and/or kV adjustment per patient size (includes targeted exams where dose is matched to clinical indication); or iterative reconstruction. COMPARISON: CT HEAD/BRAIN WO CON 09/19/2023 11:31 AM FINDINGS: Brain: No intracranial hemorrhage. Cerebral ventricles: No ventriculomegaly. Paranasal sinuses: Fractures of the right maxillary sinus anterior and lateral hull. Small blood products in the right maxillary sinus. Mastoid air cells: Visualized mastoid air cells are well aerated. Bones/joints: Fracture of the right orbital floor. Soft tissues: Bilateral anterior scalp and right lateral scalp swelling/hematoma. Right periorbital gas. IMPRESSION: 1. No intracranial hemorrhage. 2. Bilateral anterior scalp and right lateral scalp swelling/hematoma. 3. Fractures of the right maxillary sinus anterior and lateral hull. 4. Fracture of the right orbital floor. 5. Small blood products in the right maxillary sinus.
--- NOTE | 2024-03-22 10:45 | CT_ITS ---
PROCEDURE INFORMATION: Exam: CTA Abdomen and Pelvis With Contrast Exam date and time: 03/22/2024 11:20 AM Age: 58 years old Clinical indication: Injury or trauma; Other: Unknown trauma; Blunt trauma; Lower abdominal or back area; Bilateral; Additional info: Trauma, critical injury suspected TECHNIQUE: Imaging protocol: Computed tomographic angiography of the abdomen and pelvis with contrast. Exam focused on the arteries. 3D rendering (Not supervised by radiologist): MIP and/or 3D reconstructed images were created by the technologist. Radiation optimization: All CT scans at this facility use at least one of these dose optimization techniques: automated exposure control; mA and/or kV adjustment per patient size (includes targeted exams where dose is matched to clinical indication); or iterative reconstruction. Contrast material: ISOVUE; Contrast volume: 80 ml; Contrast route: INTRAVENOUS (IV); COMPARISON: CT ABDOMEN PELVIS WO CON 12/14/2023 3:20 AM FINDINGS: Aorta: No aortic aneurysm. No aortic dissection. Celiac trunk and mesenteric arteries: No occlusion or significant stenosis. Renal arteries: No occlusion or significant stenosis right renal artery. Stent evident within proximal left renal artery. Right iliac arteries: No occlusion or significant stenosis. Left iliac arteries: No occlusion or significant stenosis. Liver: No mass. Gallbladder and bile ducts: Unremarkable. No calcified stones. No ductal dilation. Pancreas: Unremarkable. No mass. No ductal dilation. Spleen: Unremarkable. No splenomegaly. Adrenal glands: Unremarkable. No mass. Kidneys and ureters: Mild atrophic changes left kidney. No hydronephrosis. Stomach and bowel: Unremarkable. No obstruction. No mucosal thickening. Appendix: No evidence of appendicitis. Intraperitoneal space: Unremarkable. No free air. No significant fluid collection. Lymph nodes: Unremarkable. No enlarged lymph nodes. Urinary bladder: Gale catheter and gas within the urinary bladder, the latter likely iatrogenic. Reproductive: Unremarkable as visualized. Bones/joints: Right rib fractures as detailed on CTA chest same day. Minimally displaced fracture left L2 transverse process. Soft tissues: Unremarkable. IMPRESSION: 1. Right rib fractures as detailed on CTA chest same day. 2. Minimally displaced fracture left L2 transverse process.
--- NOTE | 2024-03-22 10:45 | CT_ITS ---
PROCEDURE INFORMATION: Exam: CTA Neck With Contrast Exam date and time: 03/22/2024 11:16 AM Age: 58 years old Clinical indication: Injury or trauma; Other: Unknown trauma; Unconscious; Additional info: Trauma, critical injury suspected TECHNIQUE: Imaging protocol: Computed tomographic angiography of the neck with contrast. Exam focused on the cervical segments of the vasculature. 3D rendering (Not supervised by radiologist): MIP and/or 3D reconstructed images were created by the technologist. Radiation optimization: All CT scans at this facility use at least one of these dose optimization techniques: automated exposure control; mA and/or kV adjustment per patient size (includes targeted exams where dose is matched to clinical indication); or iterative reconstruction. Contrast material: ISOVUE; Contrast volume: 80 ml; Contrast route: INTRAVENOUS (IV); COMPARISON: CT SOFT TISSUE NECK W CON 06/21/2021 2:06 PM FINDINGS: Tubes, catheters and devices: Tip of the endotracheal tube is approximately 4 cm superior to the fatoumata. Right common carotid artery: No stenosis. No dissection or occlusion. Right internal carotid artery: 50-69% stenosis of the origin of the extracranial segment due to calcified plaque. No dissection or occlusion. Right external carotid artery: No occlusion or stenosis of the origin. Left common carotid artery: No stenosis. No dissection or occlusion. Left internal carotid artery: No stenosis of the extracranial segment. No dissection or occlusion. Left external carotid artery: No occlusion or stenosis of the origin. Right vertebral artery: No stenosis. No dissection or occlusion. Left vertebral artery: No stenosis. No dissection or occlusion. Soft tissues: No masses or edema. Bones/joints: No acute fracture, subluxations, or bone lesions. Pleural spaces: No airspace consolidation, nodules, or pneumothoraces. IMPRESSION: Moderately severe stenosis in the origin of the left ICA due to calcified plaque. No other arterial stenosis or occlusion. REFERENCES: NASCET CRITERIA. The degree of stenosis in the cervical segment of the internal carotid artery is based on NASCET criteria. Normal is no stenosis. Mild is less than 50% stenosis. Moderate is 50-69% stenosis. Severe is 70% to 99% stenosis. Total occlusion is no detectable patent lumen.
--- NOTE | 2024-03-22 10:45 | CT_ITS ---
PROCEDURE INFORMATION: Exam: CTA Head With Contrast, Arteriography Exam date and time: 03/22/2024 11:16 AM Age: 58 years old Clinical indication: Injury or trauma; Other: Unknown trauma; Unconscious; Additional info: Trauma, critical injury suspected TECHNIQUE: Imaging protocol: Computed tomographic angiography of the head with contrast. Exam focused on the arteries. 3D rendering (Not supervised by radiologist): MIP and/or 3D reconstructed images were created by the technologist. Radiation optimization: All CT scans at this facility use at least one of these dose optimization techniques: automated exposure control; mA and/or kV adjustment per patient size (includes targeted exams where dose is matched to clinical indication); or iterative reconstruction. Contrast material: ISOVUE; Contrast volume: 80 ml; Contrast route: INTRAVENOUS (IV); COMPARISON: CT HEAD/BRAIN WO CON 03/22/2024 11:08 AM FINDINGS: ANTERIOR CIRCULATION: Right internal carotid artery: Intracranial segment is patent with no significant stenosis. No aneurysm. Right middle cerebral artery: No occlusion or significant stenosis. No aneurysm. Right anterior cerebral artery: No occlusion or significant stenosis. No aneurysm. Left internal carotid artery: Intracranial segment is patent with no significant stenosis. No aneurysm. Left middle cerebral artery: No occlusion or significant stenosis. No aneurysm. Left anterior cerebral artery: No occlusion or significant stenosis. No aneurysm. POSTERIOR CIRCULATION: Right vertebral artery: No occlusion or significant stenosis. No aneurysm. Left vertebral artery: No occlusion or significant stenosis. No aneurysm. Basilar artery: No occlusion or significant stenosis. No aneurysm. Right posterior cerebral artery: No occlusion or significant stenosis. No aneurysm. Left posterior cerebral artery: No occlusion or significant stenosis. No aneurysm. Brain: No definite mass, mass effect, or midline shift. Cerebral ventricles: No ventriculomegaly. Bones/joints: Fluid in the right maxillary sinus. Fracture of the anterior floor of the right orbit and anterior wall of the right maxillary sinus with subperiosteal gas in the floor of the right orbit. Soft tissues: Frontal scalp hematoma.. IMPRESSION: No large vessel occlusion. No acute intracranial abnormalities. Fracture of the floor of the right orbit and anterior wall of the right maxillary sinus.
--- NOTE | 2024-03-22 10:45 | CT_ITS ---
PROCEDURE INFORMATION: Exam: CT Lumbar Spine Without Contrast Exam date and time: 03/22/2024 11:14 AM Age: 58 years old Clinical indication: Injury or trauma; Other: Unknown trauma; Blunt trauma (contusions or hematomas); Additional info: Trauma, critical injury suspected TECHNIQUE: Imaging protocol: Computed tomography of the lumbar spine without contrast. Radiation optimization: All CT scans at this facility use at least one of these dose optimization techniques: automated exposure control; mA and/or kV adjustment per patient size (includes targeted exams where dose is matched to clinical indication); or iterative reconstruction. COMPARISON: MR LUMBAR SPINE WO CON 05/17/2021 2:22 PM FINDINGS: Bones/joints: Minimally displaced fracture left L2 transverse process. Fractures right ribs 11 and 12 posteriorly. Lumbar spine normal in alignment. No compression fracture identified. No canal stenosis. Soft tissues: Unremarkable. Other findings: Reconstructed views limited by patient motion. IMPRESSION: 1. Reconstructed views limited by patient motion. 2. Minimally displaced fracture left L2 transverse process. 3. Fractures right ribs 11 and 12 posteriorly.
--- NOTE | 2024-03-22 10:45 | CT_ITS ---
PROCEDURE INFORMATION: Exam: CT Thoracic Spine Without Contrast Exam date and time: 03/22/2024 11:12 AM Age: 58 years old Clinical indication: Injury or trauma; Other: Unknown trauma; Blunt trauma (contusions or hematomas); Additional info: Trauma, critical injury suspected TECHNIQUE: Imaging protocol: Computed tomography of the thoracic spine without contrast. Radiation optimization: All CT scans at this facility use at least one of these dose optimization techniques: automated exposure control; mA and/or kV adjustment per patient size (includes targeted exams where dose is matched to clinical indication); or iterative reconstruction. COMPARISON: CT THORACIC SPINE WO CON 12/13/2020 10:10 PM FINDINGS: Bones/joints: No acute fracture. Normal alignment. No significant disc bulge or herniation. No severe spinal canal stenosis. No significant neural foraminal narrowing. Right rib fractures as detailed on CT chest same day. Soft tissues: Unremarkable. IMPRESSION: 1. No acute findings in the thoracic spine. 2. Right rib fractures as detailed on CT chest same day.
[2024-03-22 10:48] VITALS: BP 188/137; PULSE 66; O2SAT 95
[2024-03-22 10:50] LABS: Microscopic, Urine URINE MICROSCOPIC (MICROSCOPIC)
[2024-03-22] MEDS: LORazepam 2MG/ML VIAL 2 MG IV (10:50)
[2024-03-22] MEDS: FENTANYL CITRATE/PF 1,000 MCG in 0.9 % SODIUM CHLORIDE 80 ML 1 MCG IV (10:50)
[2024-03-22 10:55] LABS: Appearance,Urine CLEAR (Clear); Bilirubin,Urine Negative (Negative); Blood, Urine 1+ (Negative); Color,Urine YELLOW (Yellow); Glucose,Urine (UA) Negative (Negative); Ketones,Urine Negative (Negative); Leukocyte Esterase,Urine Negative (Negative); Nitrate,Urine Negative (Negative); Protein,Urine Negative (Negative); Urobilinogen,Urine 0.2 EU/dl (0.2)
--- NOTE | 2024-03-22 10:56 | PC.NURSE ---
PT ACCEPTED BY DR[facility] AT [facility]
[2024-03-22 10:57] LABS: Chloride 103 mmol/L (98-107); Potassium 5.3 mmoL/L (3.5-5.1); Sodium 135 mmol/L (136-145)
--- NOTE | 2024-03-22 10:58 | PC.NURSE ---
[facility] NOTIFIED THAT PT IS READY FOR TRANSFER
[2024-03-22 10:59] LABS: Blood Urea Nitrogen 11 mg/dl (7-17); Creatinine Clearance Estimated 34 mL/min (50-200); Estimated Glomerular Filt Rate 51 ml/min (>60); GFR (African American) 62 ML/MIN (>60)
[2024-03-22 11:00] LABS: Alanine Aminotransferase 29 U/L (12-78); Albumin Level 3.8 g/dl (3.5-5.0); Albumin/Globulin Ratio 1.4 (1.1-1.8); Alkaline Phosphatase 116 U/L (38-126); Anion Gap 17.3 mEq/L (5-15); Aspartate Amino Transferase 63 U/L (14-36); Bilirubin,Total 0.8 mg/dl (0.2-1.3); Calcium 9.3 mg/dl (8.4-10.2); Carbon Dioxide 20 mmol/L (22.0-30.0); Globulin 2.8 g/dL (1.3-3.2); Glucose 158 mg/dl (74-100); Total Protein,Serum 6.6 g/dl (6.3-8.2)
[2024-03-22] MEDS: [UNRECOGNIZED DRUG - OTHER] 5 GM IV (11:00)
[2024-03-22] MEDS: HYDROMORPHONE 2MG/ML SYRINGE 1 MG IV (11:00)
--- NOTE | 2024-03-22 11:05 | PC.NURSE ---
PT GONE TO CT
[2024-03-22 11:06] LABS: Bacteria,Urine Trace /lpf; RBC,Urine Occasional #/hpf (0-3); Squamous Epithelial Cell,Urine Occasional #/hpf (0-5)
--- NOTE | 2024-03-22 11:10 | PC.NURSE ---
[place] [facility] IN ABOUT 11 MINUTES
[2024-03-22 11:13] LABS: Basophils # 0.1 K/mm3 (0-0.2); Basophils % 0.6 % (0.1-2.0); Eosinophils # 0.1 K/mm3 (0.0-0.4); Eosinophils % 0.3 % (0.1-12.0); Hemoglobin 11.9 g/dL (12.2-16.2); Lymphocytes # 1.4 K/mm3 (0.7-4.5); Lymphocytes % 7.6 % (10-50); Mean Corpuscular HGB Conc 31.2 g/dL (31.8-35.4); Mean Corpuscular Hemoglobin 31.6 pg (27.0-31.2); Mean Corpuscular Volume 101.3 fl (81-99); Mean Platelet Volume 9.3 fl (7.4-10.4); Monocytes # 0.8 K/mm3 (0.1-1.0); Monocytes % 4.2 % (1.7-9.3); Neutrophils # 16.2 K/mm3 (1.8-7.8); Neutrophils % 87.3 % (37.0-80.0); Platelet Count 325 K/mm3 (142-424); Red Blood Count 3.75 M/mm3 (4.20-5.40); Red Cell Distribution Width 16.4 % (11.5-17.5); White Blood Count 18.6 K/mm3 (4.8-10.8)
[2024-03-22 11:18] LABS: MANUAL DIFFERENTIAL MANUAL DIFFERENTIAL (MANUAL DIFF)
--- NOTE | 2024-03-22 11:25 | PC.NURSE ---
PT RETURNED FROM CT
--- NOTE | 2024-03-22 11:26 | PC.NURSE ---
[facility] AT [facility]
[2024-03-22] MEDS: SODIUM CHLORIDE 0.9% 10ML SYR (RAD ONLY) 10 ML IV (11:36)
[2024-03-22] MEDS: 0.9 % SODIUM CHLORIDE 50 ML VIAL 80 ML IV (11:36)
[2024-03-22] MEDS: IOPAMIDOL-370 (76%);100ML BOTTLE 120 ML IV (11:36)
[2024-03-22 11:41] LABS: VBG Base Excess -7.7 mmol/L (-2.4-2.3); VBG HCO3 20.1 mmol/L (23-30); VBG Oxygen Saturation 23.5 % (50-70); VBG PH 7.22 mmol/L (7.31-7.41); VBG PO2 21.2 mmol/L (28-40); VBG Total CO2 21.6 mmol/L (23-27)
--- NOTE | 2024-03-22 11:41 | PC.NURSE ---
Report called to [facility].
[2024-03-22 11:43] LABS: Lactate Venous 4.2 mmol/L (0.4-2.0); VBG PCO2 50.3 mmol/L (35-51)
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
[2024-03-22 12:00] VITALS: BP 189/96; PULSE 78; RESP 24; TEMP 35.5; O2SAT 92
--- NOTE | 2024-03-22 12:26 | PC.NURSE ---
1025 DR NESS AT BEDSIDE UPON PT ARRIVAL. PT RESTLESS, IN C-COLLAR. NRB MASK IN PLACE. ATTEMPTING IV ACCESS. ORDERS TO PREP FOR INTUBATION 1025 IO RIGHT LEG 1026 IV #20 RIGHT FOOT 1027 ETOMIDATE 15MG 1028 SUCCINYLCHOLINE 75 MG 1030 ET TUBE 7.5, 22 AT GUMS. COLOR CHANGE PER CO2, BILATERAL BREATH SOUNDS 1032 [facility] CONTACTED FOR TRANSFER 1034 IV # 20 RIGHT AC 1035 TERRAZAS CATH PER STERILE TECHNIQUE 1040 XR AT BEDSIDE 1040 PROPOFOL DRIP STARTED BY YULISSA LAFLEUR 1044 [facility] CONTACTED AT THIS TIME FOR TRANSFER 1050 ATIVAN 2MG IV PER VERBAL MD ORDER. 1052 PT REMAINS RESTLESS, FENTANYL DRIP STARTED 1100 DILAUDID 1 MG PER VERBAL MD ORDER [address] 1130 [facility] AT BEDSIDE, REPORT GIVEN 1145 B/P 189/96 HR 78, O2 92%, RESP 24 95.9 RECTAL TEMP [address] [facility] [address] [facility]
[2024-03-22 12:56] LABS: Lymphocytes % 13 % (10-50); Macrocytosis 1+; Monocytes % 2 % (2-9); Neutrophils % 85 % (42-76); Platelet Estimate Normal; Total Cells Counted 100
== END 2024-03-22 12:00 | disposition short-term general hospital (02) ==
PROVIDERS: Emergency Provider Emergency Medicine
DX: T59.811A Toxic effect of smoke, accidental (unintentional), initial encounter (principal); J96.01 Acute respiratory failure with hypoxia; F17.210 Nicotine dependence, cigarettes, uncomplicated; J44.9 Chronic obstructive pulmonary disease, unspecified; I11.0 Hypertensive heart disease with heart failure; I50.31 Acute diastolic (congestive) heart failure; I25.119 Atherosclerotic heart disease of native coronary artery with unspecified angina pectoris; E78.5 Hyperlipidemia, unspecified; Z95.5 Presence of coronary angioplasty implant and graft; X02.1XXA Exposure to smoke in controlled fire in building or structure, initial encounter
CPT/HCPCS: 31500; 70450; 70496; 70498; 71045; 71275; 72125; 72128; 72131; 74174; 80053; 81001; 82803; 85007; 85025; 94002; 96365; 96375; 99291; J2704; Q9967